=== PATIENT | female | born 1960 | race Caucasian/White ===

== ENCOUNTER → 2016-12-20 | Outpatient (CLI) | payer BC ==
[~2016-12-20] MED LIST: ALBU2.5V4 IH; ALBU8.5H2 IH; BUDE10.22 IH; FLUT9.9S NSEACH; HYDR473S50 PO; IBUP-2055 PO; ONDA-43 PO; ONDA4SOL2 PO; OXYC-197 PO; [UNRECOGNIZED DRUG - REMARK]
--- NOTE | 2016-12-20 19:22 | Diagnostic Imaging Report ---
EXAMINATION: Bilateral diagnostic mammogram. INDICATION: Right breast lump and right breast pulling. COMPARISON: This study was compared to the prior exam of 04/06/2012. At this time, the patient does complain of a "pulling" sensation in the lateral aspect of the right breast. Reportedly, she also has a small mass in this area. The current study was also evaluated with a Computer Aided Detection (CAD) system. FINDINGS: In the 10 o'clock position of the right breast, there is a small 9 mm benign-appearing nodular density. There was a similar finding on the prior exam, and this nodular density does not seem to have change significantly since the prior study. Even so, I would recommend that ultrasound of this area be performed for further study. The overall appearance of the breasts is otherwise no different. There are scattered fibroglandular densities in each breast, which could obscure a lesion. There is no primary or secondary sign of malignancy identified. IMPRESSION: 1. There is a small benign-appearing nodular density in the upper-outer aspect of the right breast. Ultrasound would be recommended for further evaluation of this area. 2. There is no primary or secondary sign of malignancy involving either breast otherwise. ACR BI-RADS Category 0: Incomplete. (Needs additional imaging evaluation). Result letter will be mailed to the patient. Note: At least 10% of breast cancer is not imaged by mammography. Dictated by: Dictated on workstation # [id number]
--- NOTE | 2016-12-20 19:39 | Diagnostic Imaging Report ---
Ultrasound right breast. INDICATION: Right breast pain and lump. FINDINGS: By history, the patient has pain and a palpable abnormality in the lateral aspect of the right breast. The diagnostic mammogram performed prior to this study failed to show any sign of malignancy. The diagnostic mammogram did note a small nodular density in the 10 o'clock position of the right breast. This did seem stable when compared to the prior mammogram of 04/06/2012. On this study, there is a lobulated 0.9 x 0.5 x 0.7 cm hypoechoic mass in the 10 o'clock position of the breast roughly 6 cm from the nipple. This is in the same region as the nodular density seen on the mammogram. There is no internal vascularity associated with this finding to suggest a malignant process but does not have an entirely benign appearance. While this hypoechoic lesion and the nodular density seen on mammogram may be one and the same, the possibility that this is related to a malignant process should still be considered. I would recommend that an ultrasound-guided biopsy be performed for further study. IMPRESSION: 1. There is a small lobulated hypoechoic mass in the 10 o'clock position of the right breast. An ultrasound-guided biopsy would be recommended to exclude malignancy. 2. These results were called to Aric Magana APRN. CRITICAL FINDINGS Dictated by: Dictated on workstation # [id number]
== END ==
LOC: RAD 07:35
DX: N63 Unspecified lump in breast (principal); N64.4 Mastodynia
CPT/HCPCS: 77066

== ENCOUNTER → 2016-12-28 | Outpatient (CLI) | payer BC ==
[~2016-12-28] VITALS: Ht 149.9 cm; Wt 56.7 kg
[~2016-12-28] MED LIST changes: +LIDOCAINE 1% INJ 20 ML (XYLOCAINE) VIAL INJ ONE
[2016-12-28 08:50] VITALS: BP 138/87
[2016-12-28 09:34] VITALS: BP 129/84
--- NOTE | 2016-12-28 15:06 | Diagnostic Imaging Report ---
EXAMINATION: Vacuum-assisted ultrasound-guided biopsy of breast mass right. A metallic clip placed to stephane biopsy site. INDICATION: Right breast mass. CONSENT: Informed consent was obtained from the patient. The risks, benefits, potential complications and alternatives were reviewed and all questions answered to the patient's satisfaction. FINDINGS: Ultrasound images demonstrate right breast mass at the 10:00 zone 6 CM from the nipple. PROCEDURE: After sterile preparation and draping, 1% lidocaine was utilized for local anesthesia. A vacuum-assisted biopsy device with 14-gauge needle was introduced under live ultrasound guidance into the lesion. Good needle position was documented with ultrasound images. A metallic clip was placed to stephane the site of the biopsy. A subsequent mammogram is performed and confirms the proper positioning of the clip. Multiple samples were obtained and sent to pathology. The patient tolerated the procedure well with no immediate complications. IMPRESSION: Successful ultrasound-guided biopsy of 10:00 right breast mass. A metallic clip placed to stephane biopsy site. Dictated by: Dictated on workstation # [id number]
--- NOTE | 2016-12-28 15:45 | Diagnostic Imaging Report ---
EXAMINATION: Right breast digital diagnostic mammogram with CAD with CC and lateral views. The current study was also evaluated with a Computer Aided Detection (CAD) system. INDICATION: Post ultrasound-guided biopsy with clip placement. FINDINGS: Satisfactory clip position at site of right upper outer breast nodule in good position with resolution of the previously seen nodule suggestive of matching mammographic and ultrasound abnormalities. IMPRESSION: Satisfactory post biopsy changes and clip placement after ultrasound-guided biopsy of 10:00 lesion, 10 cm from the nipple. Biopsy results are pending. BI-RADS 4A Dictated by: Dictated on workstation # [id number]
== END ==
LOC: RAD 08:29
DX: D24.1 Benign neoplasm of right breast (principal)
CPT/HCPCS: 19083; 88305

== ENCOUNTER → 2017-06-16 | Outpatient (CLI) | payer BC, OTHER ==
[~2017-06-16] MED LIST changes: -LIDOCAINE 1% INJ 20 ML (XYLOCAINE) VIAL INJ ONE
--- NOTE | 2017-06-16 13:25 | Diagnostic Imaging Report ---
PROCEDURE: MRI lumbar spine. TECHNIQUE: Multiplanar, multisequence MRI of the lumbar spine was performed without contrast. INDICATION: Low back pain. FINDINGS: The lumbar spine has a normal alignment. There is a transitional lumbosacral junction with sacralization of the lateral masses of L5. The vertebral body heights are preserved. No significant marrow signal abnormality is seen. There is mild disc desiccation in the upper and lower lumbar spine levels. No significant disc height loss is seen. The cauda equina and conus medullaris appear grossly unremarkable. T12/L1: There is minimal disc bulge. No spinal canal or foraminal stenosis. L1/2: No disc herniation. There is mild facet hypertrophy. No central canal or lateral recess stenosis. No foraminal narrowing. L2/3: No disc herniation. There is mild facet hypertrophy without central canal or lateral recess stenosis. No foraminal stenosis. L3/4: No disc herniation. There is mild facet hypertrophy. No central canal or lateral recess stenosis. No foraminal narrowing. L4/5: There is a mild diffuse disc bulge. There is bilateral moderate facet hypertrophy. There is bilateral moderate lateral recess stenosis abutting the descending L5 nerve roots. The foramina demonstrate no significant stenosis. L5/S1: There is a small disc at this level with no significant disc herniation, no spinal canal or foraminal stenosis. IMPRESSION: 1. Please note that there is a transitional lumbosacral junction with the transitional vertebra counted as sacralized L5 in this report. 2. There is moderate lateral recess stenosis bilaterally at L4/5 level abutting the descending L5 nerve roots. Otherwise, no significant spinal canal or foraminal stenosis is seen in the lumbar spine. Dictated on workstation # [id number]
== END ==
LOC: RAD 07:40
DX: M54.16 Radiculopathy, lumbar region (principal)
CPT/HCPCS: 72148

== ENCOUNTER 2018-07-17 07:35 | Emergency (ER) | payer BC ==
[~2018-07-17] VITALS: Ht 149.9 cm; Wt 54.4 kg
[~2018-07-17 07:35] MED LIST changes: -OXYC-197 PO; +OXYC1TAB87 PO
--- OUTSIDE RECORDS SUMMARY | 2018-07-17 07:40 | XMS REPORT | Continuity of Care Document ---
Author Author [facility] Organization [facility] Address Unknown Phone Unavailable Allergies Active Description Code Type Severity Reaction Onset Reported/Identified Relationship to Patient Clinical Status Yes seasonal seasonal Unknown N/A 11/28/2014 Yes No Known Drug Allergies [id number] Drug Allergy Unknown N/A 06/13/2016 Medications There is no data. Problems Date Dx Coded Attending Type Code Diagnosis Diagnosed By 11/28/2014 Ot 558.9 NONINF GASTROENTERIT NEC 11/28/2014 Ot 787.03 VOMITING ALONE 12/08/2015 JACQUELIN RIVERA DO Ot K21.9 GASTRO-ESOPHAGEAL REFLUX DISEASE WITHOUT 12/08/2015 JACQUELIN RIVERA DO Ot K44.9 DIAPHRAGMATIC HERNIA WITHOUT OBSTRUCTION 12/08/2015 JACQUELIN RIVERA DO Ot K57.90 DVRTCLOS OF INTEST, PART UNSP, W/O PERF 12/08/2015 JACQUELIN RIVERA DO Ot R07.89 OTHER CHEST PAIN 12/09/2015 JACQUELIN RIVERA DO Ot K21.9 12/09/2015 JACQUELIN RIVERA DO Ot K44.9 12/09/2015 JACQUELIN RIVERA DO Ot K57.90 12/09/2015 JACQUELIN RIVERA DO Ot R07.89 12/18/2015 Ot R10.13 EPIGASTRIC PAIN 12/18/2015 Ot Z01.818 ENCOUNTER FOR OTHER PREPROCEDURAL EXAMIN 12/21/2015 Ot R10.13 12/21/2015 Ot Z01.818 12/21/2015 DI RILEY, CICI Bowser Ot K29.70 GASTRITIS, UNSPECIFIED, WITHOUT BLEEDING 12/21/2015 DI RILEY, CICI Bowser Ot K44.9 DIAPHRAGMATIC HERNIA WITHOUT OBSTRUCTION 12/22/2015 DI RILEY, CICI Bowser Ot K29.70 12/22/2015 DI RILEY, CICI Bowser Ot K44.9 12/23/2015 DI RILEY, CICI Bowser Ot K29.70 12/23/2015 DI RILEY, CICI Bowser Ot K44.9 01/05/2016 DI RILEY, CICI Bowser Ot K29.70 GASTRITIS, UNSPECIFIED, WITHOUT BLEEDING 01/05/2016 DI RILEY, CICI Bowser Ot K44.9 DIAPHRAGMATIC HERNIA WITHOUT OBSTRUCTION 01/06/2016 DI RILEY, CICI Bowser Ot K29.70 GASTRITIS, UNSPECIFIED, WITHOUT BLEEDING 01/06/2016 DI RILEY, CICI Bowser Ot K44.9 DIAPHRAGMATIC HERNIA WITHOUT OBSTRUCTION 01/07/2016 CICI SEVILLA MD Ot K44.9 DIAPHRAGMATIC HERNIA WITHOUT OBSTRUCTION 01/07/2016 CICI SEVILLA MD Ot Z01.818 ENCOUNTER FOR OTHER PREPROCEDURAL EXAMIN 01/07/2016 CICI SEVILLA MD Ot Z11.2 ENCOUNTER FOR SCREENING FOR OTHER BACTER 01/08/2016 CICI SEVILLA MD Ot K44.9 DIAPHRAGMATIC HERNIA WITHOUT OBSTRUCTION 01/08/2016 CICI SEVILLA MD Ot Z01.818 ENCOUNTER FOR OTHER PREPROCEDURAL EXAMIN 01/08/2016 CICI SEVILLA MD Ot Z11.2 ENCOUNTER FOR SCREENING FOR OTHER BACTER 01/19/2016 CICI SEVILLA MD Ot K44.0 DIAPHRAGMATIC HERNIA WITH OBSTRUCTION, W 01/19/2016 DI RILEY, CICI Bowser Ot R13.10 DYSPHAGIA, UNSPECIFIED 06/13/2016 CICI SEVILLA MD Ot K43.9 VENTRAL HERNIA WITHOUT OBSTRUCTION OR GA 06/13/2016 CICI SEVILLA MD Ot Z01.818 ENCOUNTER FOR OTHER PREPROCEDURAL EXAMIN 06/14/2016 CICI SEVILLA MD Ot K43.9 VENTRAL HERNIA WITHOUT OBSTRUCTION OR GA 06/14/2016 CICI SEVILLA MD Ot Z01.818 ENCOUNTER FOR OTHER PREPROCEDURAL EXAMIN 06/15/2016 MERARY SERRA APRN Ot K42.9 UMBILICAL HERNIA WITHOUT OBSTRUCTION OR 06/17/2016 CICI SEVILLA MD Ot K43.9 VENTRAL HERNIA WITHOUT OBSTRUCTION OR GA 06/19/2016 CICI SEVILLA MD Ot K43.9 VENTRAL HERNIA WITHOUT OBSTRUCTION OR GA 06/19/2016 CICI SEVILLA MD Ot Z01.818 ENCOUNTER FOR OTHER PREPROCEDURAL EXAMIN 06/20/2016 CICI SEVILLA MD Ot K43.9 VENTRAL HERNIA WITHOUT OBSTRUCTION OR GA 06/21/2016 MERARY SERRA COMPLIANCE INVESTIGATOR Ot K42.9 UMBILICAL HERNIA WITHOUT OBSTRUCTION OR 06/23/2016 DI RILEY, CICI M Ot K43.9 VENTRAL HERNIA WITHOUT OBSTRUCTION OR GA 08/24/2016 MERARY SERRA COMPLIANCE INVESTIGATOR Ot K42.9 UMBILICAL HERNIA WITHOUT OBSTRUCTION OR 08/26/2016 MERARY SERRA COMPLIANCE INVESTIGATOR Ot K42.9 UMBILICAL HERNIA WITHOUT OBSTRUCTION OR 08/31/2016 PEREZ, NICO L COMPLIANCE INVESTIGATOR Ot J44.9 CHRONIC OBSTRUCTIVE PULMONARY DISEASE, U 08/31/2016 PEREZ, NICO L COMPLIANCE INVESTIGATOR Ot J45.909 UNSPECIFIED ASTHMA, UNCOMPLICATED 08/31/2016 PEREZ, NICO L COMPLIANCE INVESTIGATOR Ot 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 09/14/2016 PEREZ, NICO L COMPLIANCE INVESTIGATOR Ot J44.9 CHRONIC OBSTRUCTIVE PULMONARY DISEASE, U 09/14/2016 PEREZ, NICO L COMPLIANCE INVESTIGATOR Ot J45.909 UNSPECIFIED ASTHMA, UNCOMPLICATED 09/14/2016 PEREZ, NICO L COMPLIANCE INVESTIGATOR Ot 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 11/14/2016 MERARY SERRA COMPLIANCE INVESTIGATOR Ot K42.9 UMBILICAL HERNIA WITHOUT OBSTRUCTION OR 11/14/2016 PEREZ, NICO L COMPLIANCE INVESTIGATOR Ot J44.9 CHRONIC OBSTRUCTIVE PULMONARY DISEASE, U 11/14/2016 PEREZ, NICO L COMPLIANCE INVESTIGATOR Ot J45.909 UNSPECIFIED ASTHMA, UNCOMPLICATED 11/14/2016 PEREZ, NICO L COMPLIANCE INVESTIGATOR Ot 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 11/14/2016 MERARY SERRA COMPLIANCE INVESTIGATOR Ot K42.9 UMBILICAL HERNIA WITHOUT OBSTRUCTION OR 12/21/2016 PEREZ, NICO L COMPLIANCE INVESTIGATOR Ot N63 UNSPECIFIED LUMP IN BREAST 12/21/2016 PEREZ, NICO L COMPLIANCE INVESTIGATOR Ot N64.4 MASTODYNIA 12/21/2016 PEREZ, NICO L COMPLIANCE INVESTIGATOR Ot N63 UNSPECIFIED LUMP IN BREAST 12/21/2016 PEREZ, NICO L COMPLIANCE INVESTIGATOR Ot N64.4 MASTODYNIA 12/30/2016 PEREZ, NICO L COMPLIANCE INVESTIGATOR Ot D24.1 BENIGN NEOPLASM OF RIGHT BREAST 01/03/2017 MERARY SERRA COMPLIANCE INVESTIGATOR Ot K42.9 UMBILICAL HERNIA WITHOUT OBSTRUCTION OR 01/03/2017 PEREZ, NICO L COMPLIANCE INVESTIGATOR Ot J44.9 CHRONIC OBSTRUCTIVE PULMONARY DISEASE, U 01/03/2017 NICO PEREZ COMPLIANCE INVESTIGATOR Ot J45.909 UNSPECIFIED ASTHMA, UNCOMPLICATED 01/03/2017 NICO PEREZ COMPLIANCE INVESTIGATOR Ot Z79.899 OTHER [facility] (CURRENT) DRUG THERAPY 01/03/2017 NICO PEREZ COMPLIANCE INVESTIGATOR Ot N63 UNSPECIFIED LUMP IN BREAST 01/03/2017 NICO PEREZ Lily COMPLIANCE INVESTIGATOR Ot N64.4 MASTODYNIA 01/03/2017 NICO PEREZ COMPLIANCE INVESTIGATOR Ot D24.1 BENIGN NEOPLASM OF RIGHT BREAST 01/03/2017 MERARY SERRA COMPLIANCE INVESTIGATOR Ot K42.9 UMBILICAL HERNIA WITHOUT OBSTRUCTION OR 01/04/2017 NICO PEREZ Lily COMPLIANCE INVESTIGATOR Ot D24.1 BENIGN NEOPLASM OF RIGHT BREAST 01/05/2017 NICO PEREZ COMPLIANCE INVESTIGATOR Ot D24.1 BENIGN NEOPLASM OF RIGHT BREAST 01/06/2017 NICO PEREZ COMPLIANCE INVESTIGATOR Ot N63 UNSPECIFIED LUMP IN BREAST 01/06/2017 NICO PEREZ COMPLIANCE INVESTIGATOR Ot N64.4 MASTODYNIA 01/13/2017 NICO PEREZ COMPLIANCE INVESTIGATOR Ot D24.1 BENIGN NEOPLASM OF RIGHT BREAST 02/02/2017 NICO PEREZ COMPLIANCE INVESTIGATOR Ot D24.1 BENIGN NEOPLASM OF RIGHT BREAST 03/22/2017 NICO PEREZ COMPLIANCE INVESTIGATOR Ot D24.1 BENIGN NEOPLASM OF RIGHT BREAST 06/28/2017 NICO PERZE COMPLIANCE INVESTIGATOR Ot M54.16 RADICULOPATHY, LUMBAR REGION Procedures Code Description Performed By Performed On [id number] SUPPLEMENT R DIAPHRAGM WITH NONAUT SUB, 01/13/2016 [id number] SUPPLEMENT L DIAPHRAGM WITH NONAUT SUB, 01/13/2016 [id number] REPOSITION STOMACH, PERCUTANEOUS ENDOSCO 01/13/2016 [id number] REPOSITION TRANSVERSE COLON, PERC ENDO A 01/13/2016 [id number] 01/13/2016 [id number] RESTRICTION OF ESOPHAGOGASTRIC JUNCTION, 01/13/2016 [id number] REPOSITION PANCREAS, PERCUTANEOUS ENDOSC 01/13/2016 [id number] ROBOTIC ASSISTED PROCEDURE OF TRUNK, PER 01/13/2016 Results Test Result Range Methicillin resistant Staphylococcus aureus (MRSA) screening culture - 07:45 MRSA SCREEN RESULT MRSA ISOLATED NRG Complete blood count (CBC) with automated white blood cell (WBC) differential - 08/30/16 07:36 Blood leukocytes automated count (number/volume) 5.5 10*3/uL 4.3-11.0 Blood erythrocytes automated count (number/volume) 4.92 10*6/uL 4.35-5.85 Venous blood hemoglobin measurement (mass/volume) 14.7 g/dL 11.5-16.0 Blood hematocrit (volume fraction) 44 % 35-52 Automated erythrocyte mean corpuscular volume 90 [foz_us] 80-99 Automated erythrocyte mean corpuscular hemoglobin (mass per erythrocyte) 30 pg 25-34 Automated erythrocyte mean corpuscular hemoglobin concentration measurement ( mass/volume) 33 g/dL 32-36 Automated erythrocyte distribution width ratio 12.5 % 10.0-14.5 Automated blood platelet count (count/volume) 296 10*3/uL 130-400 Automated blood platelet mean volume measurement 8.6 [foz_us] 7.4-10.4 Automated blood neutrophils/100 leukocytes 59 % 42-75 Automated blood lymphocytes/100 leukocytes 32 % 12-44 Blood monocytes/100 leukocytes 6 % 0-12 Automated blood eosinophils/100 leukocytes 3 % 0-10 Automated blood basophils/100 leukocytes 1 % 0-10 Blood neutrophils automated count (number/volume) 3.3 10*3 1.8-7.8 Blood lymphocytes automated count (number/volume) 1.7 10*3 1.0-4.0 Blood monocytes automated count (number/volume) 0.3 10*3 0.0-1.0 Automated eosinophil count 0.2 10*3/uL 0.0-0.3 Automated blood basophil count (count/volume) 0.0 10*3/uL 0.0-0.1 Comprehensive metabolic panel - 08/30/16 07:36 Serum or plasma sodium measurement (moles/volume) 139 mmol/L 135-145 Serum or plasma potassium measurement (moles/volume) 4.5 mmol/L 3.6-5.0 Serum or plasma chloride measurement (moles/volume) 107 mmol/L 98-107 Carbon dioxide 24 mmol/L 21-32 Serum or plasma anion gap determination (moles/volume) 8 mmol/L 5-14 Serum or plasma urea nitrogen measurement (mass/volume) 15 mg/dL 7-18 Serum or plasma creatinine measurement (mass/volume) 0.74 mg/dL 0.60-1.30 Serum or plasma urea nitrogen/creatinine mass ratio 20 NRG Serum or plasma creatinine measurement with calculation of estimated glomerular filtration rate > NRG Serum or plasma glucose measurement (mass/volume) 103 mg/dL 70-105 Serum or plasma calcium measurement (mass/volume) 9.6 mg/dL 8.5-10.1 Serum or plasma total bilirubin measurement (mass/volume) 0.3 mg/dL 0.1-1.0 Serum or plasma alkaline phosphatase measurement (enzymatic activity/volume) 75 U/L 40-136 Serum or plasma aspartate aminotransferase measurement (enzymatic activity/ volume) 16 U/L 5-34 Serum or plasma alanine aminotransferase measurement (enzymatic activity/volume ) 21 U/L 0-55 Serum or plasma protein measurement (mass/volume) 7.0 g/dL 6.4-8.2 Serum or plasma albumin measurement (mass/volume) 4.2 g/dL 3.2-4.5 Lipid 1996 panel - 08/30/16 07:36 Serum or plasma triglyceride measurement (mass/volume) 73 mg/dL <150 Serum or plasma cholesterol measurement (mass/volume) 177 mg/dL < 200 Serum or plasma cholesterol in HDL measurement (mass/volume) 57 mg/ dL 40-60 Cholesterol in LDL [mass/volume] in serum or plasma by direct assay 105 mg/dL 1-129 Serum or plasma cholesterol in VLDL measurement (mass/volume) 15 mg/ dL 5-40 Encounters ACCT No. Visit Date/Time Discharge Status Pt. Type Provider Facility Loc./Unit Complaint [id number] 06/16/2017 07:40:00 06/16/2017 23:59:59 CLS Outpatient NICO PEREZ APRN [facility] RAD LUMBAR RADICULOPATHY [id number] 12/28/2016 08:29:00 12/28/2016 23:59:59 CLS Outpatient NICO PEREZ APRN [facility] RAD RT BREAST MASS [id number] 12/20/2016 07:35:00 12/20/2016 23:59:59 CLS Outpatient NICO PEREZ APRN [facility] RAD RT BREAST PAIN,TUGGING X1 MONTH [id number] 08/30/2016 07:23:00 08/30/2016 23:59:59 CLS Outpatient NICO PEREZ COMPLIANCE INVESTIGATOR [facility] 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 MEDICATIONS USE ,ASTHMA/COPD [id number] 06/15/2016 07:22:00 06/17/2016 13:00:00 DIS Outpatient DI RILEY, CICI Bowser [facility] VENTRAL HERNIA [id number] 06/13/2016 05:51:00 06/13/2016 14:36:00 DIS Outpatient DI RILEY, CICI Bowser [facility] PREOP VENTRAL HERNIA [id number] 06/07/2016 14:29:00 06/07/2016 23:59:59 CLS Outpatient MERARY SERRA COMPLIANCE INVESTIGATOR [facility] RAD UMBILICAL HERNIA, SEVERE PAIN W/ UMBILICAL BULGE [id number] 01/13/2016 08:57:00 01/19/2016 12:30:00 DIS Inpatient CICI SEVILLA MD [facility] 4TH HIATAL HERNIA [id number] 01/07/2016 08:48:00 01/07/2016 09:23:00 DIS Outpatient DI RILEY, CICI Bowser [facility] PREOP HIATAL HERNIA [id number] 12/21/2015 11:52:00 12/21/2015 15:20:00 DIS Outpatient CICI SEVILLA MD [facility] UPPER GASTRIC PAIN [id number] 12/08/2015 09:39:00 12/08/2015 13:02:00 DIS Emergency JACQUELIN RIVERA DO [facility] ER CP, CHEST TIGHTNESS [id number] 12/18/2015 07:34:00 Document Registration [id number] 12/08/2015 13:09:00 Document Registration [id number] 12/08/2015 13:09:00 Document Registration [id number] 11/28/2014 08:18:00 Document Registration
[2018-07-17] MEDS ORDERED: ONDANSETRON 4 MG/2 ML (SDV) Z0FRAN IVP ONE (08:00)
[2018-07-17] MEDS ORDERED: CELE100C84 (08:05)
[2018-07-17] MEDS ORDERED: BUDE10.2 (08:05)
[2018-07-17] MEDS ORDERED: GABA-486 (08:05)
[2018-07-17 08:12] LABS: BASOPHILS % (AUTO) 0 % (0-10); EOSINOPHILS # (AUTO) 0.2 10^3/uL (0.0-0.3); EOSINOPHILS % (AUTO) 4 % (0-10); HEMATOCRIT 41 % (35-52); HEMOGLOBIN 13.9 G/DL (11.5-16.0); LYMPHOCYTES # (AUTO) 1.9 X 10^3 (1.0-4.0); LYMPHOCYTES % (AUTO) 35 % (12-44); MEAN CORPUSCULAR HEMOGLOBIN 31 PG (25-34); MEAN CORPUSCULAR HGB CONC 34 G/DL (32-36); MEAN CORPUSCULAR VOLUME 91 FL (80-99); MONOCYTES # (AUTO) 0.3 X 10^3 (0.0-1.0); MONOCYTES % (AUTO) 6 % (0-12); NEUTROPHILS % (AUTO) 55 % (42-75); PLATELET COUNT 245 10^3/uL (130-400); RED CELL DISTRIBUTION WIDTH 12.6 % (10.0-14.5); WHITE BLOOD COUNT 5.3 10^3/uL (4.3-11.0)
[2018-07-17 08:29] LABS: ALANINE AMINOTRANSFERASE 15 U/L (0-55); ALBUMIN 4.1 GM/DL (3.2-4.5); ALKALINE PHOSPHATASE 50 U/L (40-136); AMYLASE 70 U/L (25-125); BILIRUBIN,TOTAL 0.6 MG/DL (0.1-1.0); BUN/CREATININE RATIO 26; CALCIUM 9.3 MG/DL (8.5-10.1); CARBON DIOXIDE 23 MMOL/L (21-32); CHLORIDE 109 MMOL/L (98-107); CREATININE SERUM 0.72 MG/DL (0.60-1.30); GFR ESTIMATED > 60; GLUCOSE 108 MG/DL (70-105); LIPASE 26 U/L (8-78); SODIUM 140 MMOL/L (135-145); TOTAL PROTEIN 6.8 GM/DL (6.4-8.2)
[2018-07-17] MEDS ORDERED: NS IV 1000 ML 1,000 ML IV STA (08:50)
[2018-07-17] MEDS ORDERED: ANTACID SUSP 30 ML UDC (MYLANTA) PO ONE (09:00)
[2018-07-17] MEDS ORDERED: IOHEXOL 350 MG/ML 100 ML (OMNIPAQUE 350) VIAL IV ONE (09:00)
[2018-07-17] MEDS ORDERED: LIDOCAINE 2% VISCOUS 15 ML UDC PO ONE (09:00)
[2018-07-17] MEDS ORDERED: NS 250 ML (IVPB) BAG IV ONE (09:00)
--- NOTE | 2018-07-17 09:13 | ED Abdominal Pain ---
General Chief Complaint: Abdominal/GI Problems Stated Complaint: ABD PAIN Nursing Triage Note: PT CO OF ABD PAIN EPIGASTRIC AREA, 10/10 PAIN, NAUSEA NO VOMITING, NO DIARRHEA Sepsis Screen: No Definite Risk Source of Information: Patient Exam Limitations: No Limitations History of Present Illness Date Seen by Provider: Jul 17, 2018 Time Seen by Provider: 08:45 Initial Comments Here with report of upper abdominal pain that has been going on for a couple days and markedly worse today. Is associated with nausea but no vomiting. Denies diarrhea. Last bowel movement was yesterday. Does have history of 2 previous hernia repairs in the area of pain. She's had a cholecystectomy as well as hysterectomy. Denies blood in her stool. Denies dysuria. Timing/Duration: 2-3 Days Severity/Quality: Moderate, Severe, Aching, Burning Location: Epigastric Radiation: No Radiation Activities at Onset: None Modifying Factors: Worsens With Eating Associated Symptoms: No Back Pain, No Chest Pain, No Fever/Chills, No Shortness of Air, No Weakness Allergies and Home Medications Allergies Coded Allergies: No Known Drug Allergies (Unverified , 06/13/16) Patient Home Medication List Home Medication List Reviewed: Yes Review of Systems Review of Systems Constitutional: see HPI; No chills, No fever EENTM: No Symptoms Reported Respiratory: No Symptoms Reported Cardiovascular: No Symptoms Reported Gastrointestinal: See HPI, Abdominal Pain; Denies Constipated, Denies Diarrhea ; Nausea; Denies Vomiting Genitourinary: No Symptoms Reported Musculoskeletal: no symptoms reported All Other Systems Reviewed Negative Unless Noted: Yes Past Nhrubus-Gpyxwa-Wijnys Hx Past Med/Social Hx: Reviewed Nursing Past Med/Soc Hx Patient Social History Alcohol Use: Denies Use Recreational Drug Use: No Smoking Status: Never a Smoker Recent Foreign Travel: No Contact w/Someone Who Travel: No Recent Infectious Disease Expo: No Recent Hopitalizations: No Physical Abuse: No Sexual Abuse: No Immunizations Up To Date Tetanus Booster (TDap): Unknown Date of Pneumonia Vaccine: Sep 18, 2009 Seasonal Allergies Seasonal Allergies: Yes Past Medical History Surgeries: Yes (HIATAL HERNIA REPAIR) Gallbladder, Hysterectomy Respiratory: Yes Asthma Currently Using CPAP: No Currently Using BIPAP: No Cardiac: No Neurological: No 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 Disorders: No (HYSTERECTOMY) Female 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 Disorders: Denies DRY CAN TENDER History: Hysterectomy Sexually Transmitted Disease: No HIV/AIDS: No Gastrointestinal: Yes (VENTRAL HERNIA) Hiatal Hernia Musculoskeletal: No Endocrine: No Loss of Vision: Bilateral Hearing Impairment: Denies Cancer: No Psychosocial: No Integumentary: No Blood Disorders: No Adverse Reaction/Blood Tranf: No (HAS HAD BLOOD WITHOUT DIFFICULTY) Family Medical History Reviewed Nursing Family Hx Patient reports no known family medical history. Physical Exam Vital Signs Vital Signs - First Documented 07/17/18 07:45 Temp 96.5 Pulse 83 Resp 29 B/P (MAP) 148/88 (108) Pulse Ox 98 Capillary Refill : Less Than 3 Seconds Height/Weight/BMI Height: 4'11.00" Weight: 120lbs. 0.0oz. 54.450898ku; 25.3 BMI Method:Stated General Appearance: WD/WN, no apparent distress HEENT: PERRL/EOMI, pharynx normal Neck: full range of motion, supple Respiratory: lungs clear, normal breath sounds Cardiovascular: regular rate, rhythm, no murmur Gastrointestinal: soft, abnormal bowel sounds (quiet); No guarding, No rebound ; tenderness (epigastric) Extremities: non-tender, normal inspection Back: normal inspection, no CVA tenderness, no vertebral tenderness Neurologic/Psychiatric: alert, oriented x 3 Skin: normal color, warm/dry Progress/Results/Core Measures Results/Orders Lab Results Laboratory Tests Test 07/17/18 07:50 07/17/18 09:10 Range/Units White Blood Count 5.3 4.3-11.0 10^3/uL Red Blood Count 4.50 4.35-5.85 10^6/uL Hemoglobin 13.9 11.5-16.0 G/DL Hematocrit 41 35-52 % Mean Corpuscular Volume 91 80-99 FL Mean Corpuscular Hemoglobin 31 25-34 PG Mean Corpuscular Hemoglobin Concent 34 32-36 G/DL Red Cell Distribution Width 12.6 10.0-14.5 % Platelet Count 245 130-400 10^3/uL Mean Platelet Volume 9.0 7.4-10.4 FL Neutrophils (%) (Auto) 55 42-75 % Lymphocytes (%) (Auto) 35 12-44 % Monocytes (%) (Auto) 6 0-12 % Eosinophils (%) (Auto) 4 0-10 % Basophils (%) (Auto) 0 0-10 % Neutrophils # (Auto) 3.0 1.8-7.8 X 10^3 Lymphocytes # (Auto) 1.9 1.0-4.0 X 10^3 Monocytes # (Auto) 0.3 0.0-1.0 X 10^3 Eosinophils # (Auto) 0.2 0.0-0.3 10^3/uL Basophils # (Auto) 0.0 0.0-0.1 10^3/uL Sodium Level 140 135-145 MMOL/L Potassium Level 4.0 3.6-5.0 MMOL/L Chloride Level 109 H 98-107 MMOL/L Carbon Dioxide Level 23 21-32 MMOL/L Anion Gap 8 5-14 MMOL/L Blood Urea Nitrogen 19 H 7-18 MG/DL Creatinine 0.72 0.60-1.30 MG/DL Estimat Glomerular Filtration Rate > 60 BUN/Creatinine Ratio 26 Glucose Level 108 H 70-105 MG/DL Calcium Level 9.3 8.5-10.1 MG/DL Corrected Calcium 9.2 8.5-10.1 MG/DL Total Bilirubin 0.6 0.1-1.0 MG/DL Aspartate Amino Transf (AST/SGOT) 17 5-34 U/L Alanine Aminotransferase (ALT/SGPT) 15 0-55 U/L Alkaline Phosphatase 50 40-136 U/L Total Protein 6.8 6.4-8.2 GM/DL Albumin 4.1 3.2-4.5 GM/DL Amylase Level 70 25-125 U/L Lipase 26 8-78 U/L Urine Color YELLOW Urine Clarity CLEAR Urine pH 8 5-9 Urine Specific [place] 1.015 L 1.016-1.022 Urine Protein NEGATIVE NEGATIVE Urine Glucose (UA) NEGATIVE NEGATIVE Urine Ketones NEGATIVE NEGATIVE Urine Nitrite NEGATIVE NEGATIVE Urine Bilirubin NEGATIVE NEGATIVE Urine Urobilinogen NORMAL NORMAL MG/DL Urine Leukocyte Esterase 2+ H NEGATIVE Urine RBC (Auto) NEGATIVE NEGATIVE Urine RBC NONE /HPF Urine WBC 10-25 H /HPF Urine Squamous Epithelial Cells 5-10 /HPF Urine Crystals NONE /LPF Urine Bacteria MODERATE H /HPF Urine Casts NONE /LPF Urine Mucus NEGATIVE /LPF Urine Culture Indicated YES My Orders Orders - CHEVY BANDA MD Amylase (07/17/18 07:58) Cbc With Automated Diff (07/17/18 07:58) Comprehensive Metabolic Panel (07/17/18 07:58) Lipase (07/17/18 07:58) Ua Culture If Indicated (07/17/18 07:58) Ondansetron Injection (Zofran Injectio (07/17/18 08:00) Saline Lock/Iv-Start (07/17/18 07:58) Ct Abdomen/Pelvis W (07/17/18 08:50) Lidocaine 2% Viscous 15 Ml (Xylocaine Vi (07/17/18 09:00) Ns Iv 1000 Ml (Sodium Chloride 0.9%) (07/17/18 08:50) Antacid Suspension (Mylanta Suspension (07/17/18 09:00) Iohexol Injection (Omnipaque 350 Mg/Ml 1 (07/17/18 09:00) Ns (Ivpb) (Sodium Chloride 0.9%) (07/17/18 09:00) Contrast Received (Contrast Received) (07/17/18 09:15) Urine Culture (07/17/18 09:10) Medications Given in ED Current Medications Medications Dose Ordered Sig/Toni Route Start Time Stop Time Status Last Admin Dose Admin Al Hydrox/Mg Hydrox/Simethicone 30 ml ONCE ONCE PO 07/17/18 09:00 07/17/18 09:01 DC 07/17/18 09:24 30 ML Iohexol 100 ml ONCE ONCE IV 07/17/18 09:00 07/17/18 09:11 DC 07/17/18 09:37 100 ML Lidocaine HCl 15 ml ONCE ONCE PO 07/17/18 09:00 07/17/18 09:01 DC 07/17/18 09:24 15 ML Ondansetron HCl 4 mg ONCE ONCE IVP 07/17/18 08:00 07/17/18 08:01 DC 07/17/18 08:07 4 MG Sodium Chloride 250 ml ONCE ONCE IV 07/17/18 09:00 07/17/18 09:11 DC 07/17/18 09:37 80 ML Vital Signs/I&O 07/17/18 07:45 Temp 96.5 Pulse 83 Resp 29 B/P (MAP) 148/88 (108) Pulse Ox 98 Blood Pressure Mean: 108 Progress Progress Note : Progress Note Seen and evaluated. IV, labs, Zofran 4 mg IV. Nausea somewhat improved. Reports not drinking well due to the pain. Normal saline 1 L bolus ordered. We will get CT abdomen pelvis due to concerns of obstructive symptoms and persistent pain. GI cocktail ordered. Monitor patient. 1040: Overall better. CT results noted in reviewed with the patient. We did discuss the patient needs colonoscopy and upper endoscopy. She will be initiated on PPI over-the- counter as well as Carafate. I did discuss the importance of following up with surgeon. I will send a copy of the chart to Dr. Devlin. She will call his office. There is some concerns for urinary tract infection as well as diverticulitis. We will initiate treatment with Cipro and Flagyl. Discharged home with return precautions. Patient verbalize understanding instructions and agreement with plan. Diagnostic Imaging Diagonstic Imaging: CT Plain Films/CT/US/NM/MRI: abdomen, pelvis Comments Date of Exam:07/17/18 CT ABDOMEN/PELVIS W PROCEDURE: CT abdomen and pelvis with contrast. TECHNIQUE: Multiple contiguous axial images were obtained through the abdomen and pelvis after administration of intravenous contrast. INDICATION: Abdominal pain x 3 days history, worsening in severity recently. COMPARISON: Nonenhanced study dated 06/07/2016. FINDINGS: Extensive posterior herniation comprised of the majority of the stomach, the majority of the pancreas, and extensive perigastric and retroperitoneal fat is a redemonstrated finding with resultant passive atelectasis of the adjacent posteromedial lung bases. The gallbladder is surgically absent. The liver is unremarkable. The adrenals are negative. The spleen is unremarkable. There is no hydronephrosis. The aortoiliac vessels are mildly calcified but nonaneurysmal. There is a small volume of pelvic free fluid. There are sigmoid diverticuli with some mild infiltration of the pelvic fat and mild diverticulitis could not be excluded. No abscess, obstruction, perforation, or free air. IMPRESSION: Small volume of free fluid and some perisigmoidal edema in the left lower quadrant with mild diverticulitis suspected. Large retrocardiac cardiac intra and retroperitoneal herniation, more pronounced than on the prior exam, but noted as a chronic finding. Unobstructed urinary tracts. No acute hepatobiliary abnormality. No abscess, perforation, or free air. Dictated on workstation # [id number] Dict: 07/17/18 [id number] Trans: 07/17/18 [id number] Interpreted by: VENTURA REYNOSO Electronically signed by: Departure Impression Primary Impression: Hiatal hernia with gastroesophageal reflux Additional Impressions: Diverticulitis of intestine Qualified Codes: K57.32 - Diverticulitis of large intestine without perforation or abscess without bleeding Urinary tract infection Qualified Codes: N30.00 - Acute cystitis without hematuria Disposition: HOME, SELF-CARE Condition: Improved Departure-Patient Inst. Decision time for Depature: 10:44 Referrals: DAVID KUMAR DO (PCP/Family) Primary Care Physician INGRIS DEVLIN DO Patient Instructions: Acute Abdomen (Belly Pain), Adult (DC), Peptic Ulcers (DC ), Urinary Tract Infection, Adult (DC) Add. Discharge Instructions: All discharge instructions reviewed with patient and/or family. Voiced understanding. Call Dr. Devlin's office for appointment. Light diet for the next 2 days and then advance as tolerated. You should start [id number] omeprazole 20 mg daily. Go ahead and complete a six-week pack. Return for worse pain, fever, vomiting, weakness, breathing problems or other concerns as needed. Drink plenty of fluids. Scripts Sucralfate (Sucralfate) 1 Gm Tablet 1 GM PO ACHS, #60 TAB 0 Refills Chew tablet to a slurry and then swallow Prov: CHEVY BANDA MD 07/17/18 Metronidazole (Metronidazole) 500 Mg Tablet 500 MG PO BID, #14 TAB 0 Refills Prov: CHEVY BANDA MD 07/17/18 Ciprofloxacin HCl (Ciprofloxacin HCl) 500 Mg Tablet 500 MG PO BID, #14 TAB Prov: CHEVY BANDA MD 07/17/18 Copy Copies To 1: INGRIS DEVLIN TIMOTHY D MD Jul 17, 2018 09:13
[2018-07-17] MEDS ORDERED: RECEIVED CONTRAST (Hold Metformin) IV SCH (09:15)
[2018-07-17 09:24] LABS: BILIRUBIN,URINE NEGATIVE (NEGATIVE); CLARITY,URINE CLEAR; COLOR,URINE YELLOW; GLUCOSE, URINE (UA) NEGATIVE (NEGATIVE); KETONES,URINE NEGATIVE (NEGATIVE); LEUKOCYTE ESTERASE ,URINE 2+ (NEGATIVE); NITRITE,URINE NEGATIVE (NEGATIVE); PH,URINE 8 (5-9); PROTEIN,URINE NEGATIVE (NEGATIVE); UROBILINOGEN,URINE NORMAL (NORMAL)
[2018-07-17 09:38] LABS: BACTERIA,URINE MODERATE /HPF
--- NOTE | 2018-07-17 10:07 | Diagnostic Imaging Report ---
PROCEDURE: CT abdomen and pelvis with contrast. TECHNIQUE: Multiple contiguous axial images were obtained through the abdomen and pelvis after administration of intravenous contrast. INDICATION: Abdominal pain x 3 days history, worsening in severity recently. COMPARISON: Nonenhanced study dated 06/07/2016. FINDINGS: Extensive posterior herniation comprised of the majority of the stomach, the majority of the pancreas, and extensive perigastric and retroperitoneal fat is a redemonstrated finding with resultant passive atelectasis of the adjacent posteromedial lung bases. The gallbladder is surgically absent. The liver is unremarkable. The adrenals are negative. The spleen is unremarkable. There is no hydronephrosis. The aortoiliac vessels are mildly calcified but nonaneurysmal. There is a small volume of pelvic free fluid. There are sigmoid diverticuli with some mild infiltration of the pelvic fat and mild diverticulitis could not be excluded. No abscess, obstruction, perforation, or free air. IMPRESSION: Small volume of free fluid and some perisigmoidal edema in the left lower quadrant with mild diverticulitis suspected. Large retrocardiac cardiac intra and retroperitoneal herniation, more pronounced than on the prior exam, but noted as a chronic finding. Unobstructed urinary tracts. No acute hepatobiliary abnormality. No abscess, perforation, or free air. Dictated by: Dictated on workstation # [id number]
[2018-07-17] MEDS ORDERED: SUCR1TAB PO (10:46)
[2018-07-17] MEDS ORDERED: METR-197 PO (10:46)
[2018-07-17] MEDS ORDERED: CIPR500T4 PO (10:46)
[2018-07-17 10:55] VITALS: BP 128/77
== END 2018-07-17 10:55 | disposition home or self-care (01) ==
LOC: EDUNIT# 07:35 → ER 07:36
DX: K46.9 Unspecified abdominal hernia without obstruction or gangrene (principal); K21.9 Gastro-esophageal reflux disease without esophagitis; K57.30 Diverticulosis of large intestine without perforation or abscess without bleeding; N39.0 Urinary tract infection, site not specified; J45.909 Unspecified asthma, uncomplicated; Z87.19 Personal history of other diseases of the digestive system; Z90.710 Acquired absence of both cervix and uterus; Z90.49 Acquired absence of other specified parts of digestive tract; Z98.890 Other specified postprocedural states
CPT/HCPCS: 36415; 74177; 80053; 81000; 82150; 83690; 85025; 87088; 96361; 96374

== ENCOUNTER 2018-07-31 06:38 | Outpatient (CLI) | payer BC ==
[~2018-07-31] VITALS: Ht 149.9 cm; Wt 54.4 kg
[~2018-07-31 06:38] MED LIST changes: +BUDE10.2 IH; +CELE100C84 PO; +CIPR500T4 PO; +GABA-486 PO; +METR-197 PO; +SUCR1TAB PO
[2018-07-31] MEDS ORDERED: GABA-488 PO (15:19)
== END 2018-07-31 15:21 | disposition home or self-care (01) ==
LOC: PREOP 06:38
PROVIDERS: ATTEND Surgery
DX: Z01.818 Encounter for other preprocedural examination (principal)

== ENCOUNTER 2018-08-06 09:02 | Day surgery (SDC) | payer BC ==
[~2018-08-06] VITALS: Ht 149.9 cm; Wt 54.4 kg
[~2018-08-06 09:02] MED LIST changes: +GABA-488 PO
[2018-08-06] MEDS ORDERED: NS IV 500 ML 500 ML IV PRN (09:10)
[2018-08-06] MEDS ORDERED: HURRICAINE EXT TUBE (BENZOCAINE) XX PRN (09:15)
[2018-08-06] MEDS ORDERED: fentaNYL INJECTION 100 MCG/2 ML AMP IVP ONE (09:15)
[2018-08-06] MEDS ORDERED: NS IV 500 ML 500 ML ONE (09:15)
[2018-08-06] MEDS ORDERED: MIDAZOLAM 2 MG/2 ML (VERSED) VIAL IVP ONE (09:15)
--- NOTE | 2018-08-06 09:23 | Conscious Sedation/ASA ---
Conscious Sedation Pre-Proced Time 09:23 ASA Score 2 For ASA 3 and 4: Consider anesthesia and medical clearance. Also, for patients with a history of failed moderate sedation consider anesthesia. Airway Lungs Heart ASA score ASA 1: a normal healthy patient ASA 2: a patient with a mild systemic disease (mid diabetes, controlled hypertension, obesity ASA 3: a patient with a severe systemic disease that limits activity (angina , COPD, prior Myocardial infarction) ASA 4: a patient with an incapacitating disease that is a constant threat to life (CHF, renal failure) ASA 5: a moribund patient not expected to survive 24 hrs. (ruptured aneurysm) ASA 6: a declared brain patient whose organs are being harvested. For emergent operations, add the letter E after the classification Mallampati Classification Grade 1 Sedation Plan Discussed options with patient/fam The patient is an appropriate candidate to undergo the planned procedure, sedation, and anesthesia. The patient immediately re-assessed prior to indication. CICI SEVILLA MD Aug 06, 2018 09:23
[2018-08-06 09:26] VITALS: BP 172/92
[2018-08-06] MEDS ORDERED: MIDAZOLAM 2 MG/2 ML (VERSED) VIAL ONE ×4 (09:44→09:45)
[2018-08-06] MEDS ORDERED: fentaNYL INJECTION 100 MCG/2 ML AMP ONE (09:44)
[2018-08-06] MEDS ORDERED: HURRICAINE EXT TUBE (BENZOCAINE) ONE (09:45)
--- NOTE | 2018-08-06 10:15 | Endo Procedure Record ---
Endo Procedure Report Date of Procedure Last Colonoscopy: No Aug 06, 2018 Surgeon (s) CICI SEVILLA MD Post Procedure/Op Diagnosis paraesophageal hernia Procedure Performed EGD with antral biopsy for H. pylori Description of Procedure Anesthesia Type: Conscious Sedation Specimen(s) collected/removed antral mucosa for H. pylori Description of the Procedure Indication for the procedure: This lady presented with epigastric pain of fairly recent onset. She had undergone repair of a large paraesophageal hernia with reinforcement of the hiatus using a mesh about 18 months ago. Evaluation confirmed recurrence of the hernia and therefore endoscopic assessment prior to planning further repair was felt to be reasonable. Informed consent was obtained after reviewing the procedure in detail. Description of the procedure: She was placed in left lateral decubitus position and her vital signs were monitored. Conscious sedation was achieved using Versed and fentanyl. The flexible gastroscope wasn't to the esophagus, past the stomach, into the duodenum. Findings: Esophagus: Quite tortuous. Stomach: Configuration of a paraesophageal hernia with the distal stomach being found high above the hiatus. An antral biopsy for H. pylori was obtained. Duodenum: Normal. She tolerated the procedure well and was taken back to the nursing area in a stable condition. Impression: Recurrent paraesophageal hernia. Further arrangements for surgical repair would be made. CICI SEVILLA MD Aug 06, 2018 10:15
--- NOTE | 2018-08-06 10:19 | Discharge Inst-Simple/Standard ---
Discharge Inst-Standard Discharge Medications New, Converted or Re-Newed RX: Other Patient Instructions/Follow Up Plan of Care/Instructions/FU: we would contact her regarding arrangements for surgery Activity as Tolerated: Yes Discharge Diet: No Restrictions CICI SEVILLA MD Aug 06, 2018 10:19
[2018-08-06 10:40] VITALS: BP 153/88
[2018-08-06 11:06] VITALS: BP 141/98
[2018-08-06 11:10] VITALS: BP 141/98
== END 2018-08-06 11:11 | disposition home or self-care (01) ==
LOC: ENDO 09:02
PROVIDERS: ATTEND Surgery
DX: K44.9 Diaphragmatic hernia without obstruction or gangrene (principal); K57.32 Diverticulitis of large intestine without perforation or abscess without bleeding

== ENCOUNTER 2018-09-03 20:05 | Emergency (ER) | payer BC ==
[~2018-09-03] VITALS: Ht 149.9 cm; Wt 54.4 kg
--- OUTSIDE RECORDS SUMMARY | 2018-09-03 20:12 | XMS REPORT | Continuity of Care Document ---
Author Author [facility] Organization [facility] Address Unknown Phone Unavailable Allergies Active Description Code Type Severity Reaction Onset Reported/Identified Relationship to Patient Clinical Status Yes seasonal seasonal Unknown N/A 11/28/2014 Yes No Known Drug Allergies [id number] Drug Allergy Unknown N/A 06/13/2016 Medications There [...] WITHOUT OBSTRUCTION OR GA 06/21/2016 MERARY SERRA PRODUCTION TOOL ENGINEER Ot K42.9 UMBILICAL HERNIA WITHOUT OBSTRUCTION OR 06/23/2016 DI RILEY, CICI M Ot K43.9 VENTRAL HERNIA WITHOUT OBSTRUCTION OR GA 08/24/2016 MERARY SERRA PRODUCTION TOOL ENGINEER Ot K42.9 UMBILICAL HERNIA WITHOUT OBSTRUCTION OR 08/26/2016 MERARY SERRA PRODUCTION TOOL ENGINEER Ot K42.9 UMBILICAL HERNIA WITHOUT OBSTRUCTION OR 08/31/2016 PEREZ, NICO L PRODUCTION TOOL ENGINEER Ot J44.9 CHRONIC OBSTRUCTIVE PULMONARY DISEASE, U 08/31/2016 PEREZ, NICO L PRODUCTION TOOL ENGINEER Ot J45.909 UNSPECIFIED ASTHMA, UNCOMPLICATED 08/31/2016 PEREZ, NICO L PRODUCTION TOOL ENGINEER Ot Z79.899 OTHER STOREROOM SUPERVISOR (CURRENT) DRUG THERAPY 09/14/2016 PEREZ, NICO L PRODUCTION TOOL ENGINEER Ot J44.9 CHRONIC OBSTRUCTIVE PULMONARY DISEASE, U 09/14/2016 PEREZ, NICO L PRODUCTION TOOL ENGINEER Ot J45.909 UNSPECIFIED ASTHMA, UNCOMPLICATED 09/14/2016 PEREZ, NICO L PRODUCTION TOOL ENGINEER Ot Z79.899 OTHER STOREROOM SUPERVISOR (CURRENT) DRUG THERAPY 11/14/2016 MERARY SERRA PRODUCTION TOOL ENGINEER Ot K42.9 UMBILICAL HERNIA WITHOUT OBSTRUCTION OR 11/14/2016 PEREZ, NICO L PRODUCTION TOOL ENGINEER Ot J44.9 CHRONIC OBSTRUCTIVE PULMONARY DISEASE, U 11/14/2016 PEREZ, NICO L PRODUCTION TOOL ENGINEER Ot J45.909 UNSPECIFIED ASTHMA, UNCOMPLICATED 11/14/2016 PEREZ, NICO L PRODUCTION TOOL ENGINEER Ot Z79.899 OTHER STOREROOM SUPERVISOR (CURRENT) DRUG THERAPY 11/14/2016 MERARY SERRA PRODUCTION TOOL ENGINEER Ot K42.9 UMBILICAL HERNIA WITHOUT OBSTRUCTION OR 12/21/2016 PEREZ, NICO L PRODUCTION TOOL ENGINEER Ot N63 UNSPECIFIED LUMP IN BREAST 12/21/2016 PEREZ, NICO L PRODUCTION TOOL ENGINEER Ot N64.4 MASTODYNIA 12/21/2016 PEREZ, NICO L PRODUCTION TOOL ENGINEER Ot N63 UNSPECIFIED LUMP IN BREAST 12/21/2016 PEREZ, NICO L PRODUCTION TOOL ENGINEER Ot N64.4 MASTODYNIA 12/30/2016 PEREZ, NICO L PRODUCTION TOOL ENGINEER Ot D24.1 BENIGN NEOPLASM OF RIGHT BREAST 01/03/2017 MERARY SERRA PRODUCTION TOOL ENGINEER Ot K42.9 UMBILICAL HERNIA WITHOUT OBSTRUCTION OR 01/03/2017 PEREZ, NICO L PRODUCTION TOOL ENGINEER Ot J44.9 CHRONIC OBSTRUCTIVE PULMONARY DISEASE, U 01/03/2017 NICO PEREZ PRODUCTION TOOL ENGINEER Ot J45.909 UNSPECIFIED ASTHMA, UNCOMPLICATED 01/03/2017 NICO PEREZ Lily PRODUCTION TOOL ENGINEER Ot Z79.899 OTHER DETENTION (CURRENT) DRUG THERAPY 01/03/2017 NICO PEREZ PRODUCTION TOOL ENGINEER Ot N63 UNSPECIFIED LUMP IN BREAST 01/03/2017 NICO PEREZ Lily PRODUCTION TOOL ENGINEER Ot N64.4 MASTODYNIA 01/03/2017 NICO PEREZ Lily PRODUCTION TOOL ENGINEER Ot D24.1 BENIGN NEOPLASM OF RIGHT BREAST 01/03/2017 MERARY SERRA PRODUCTION TOOL ENGINEER Ot K42.9 UMBILICAL HERNIA WITHOUT OBSTRUCTION OR 01/04/2017 NICO PEREZ Lily PRODUCTION TOOL ENGINEER Ot D24.1 BENIGN NEOPLASM OF RIGHT BREAST 01/05/2017 NICO PEREZ Lily PRODUCTION TOOL ENGINEER Ot D24.1 BENIGN NEOPLASM OF RIGHT BREAST 01/06/2017 NICO PEREZ Lily PRODUCTION TOOL ENGINEER Ot N63 UNSPECIFIED LUMP IN BREAST 01/06/2017 NICO PEREZ Lily PRODUCTION TOOL ENGINEER Ot N64.4 MASTODYNIA 01/13/2017 NICO PEREZ Lily PRODUCTION TOOL ENGINEER Ot D24.1 BENIGN NEOPLASM OF RIGHT BREAST 02/02/2017 NICO PEREZ Lily PRODUCTION TOOL ENGINEER Ot D24.1 BENIGN NEOPLASM OF RIGHT BREAST 03/22/2017 NICO PEREZ Lily PRODUCTION TOOL ENGINEER Ot D24.1 BENIGN NEOPLASM OF RIGHT BREAST 06/28/2017 NICO PEREZ Lily PRODUCTION TOOL ENGINEER Ot M54.16 RADICULOPATHY, LUMBAR REGION 07/17/2018 CHEVY BANDA MD Ot J45.909 UNSPECIFIED ASTHMA, UNCOMPLICATED 07/17/2018 CHEVY BANDA MD Ot K21.9 GASTRO-ESOPHAGEAL REFLUX DISEASE WITHOUT 07/17/2018 CHEVY BANDA MD Ot K46.9 UNSPECIFIED ABDOMINAL HERNIA WITHOUT OBS 07/17/2018 CHEVY BANDA MD, Ot K57.30 DVRTCLOS OF LG INT W/O PERFORATION OR AB 07/17/2018 CHEVY BANDA MD Ot N39.0 URINARY TRACT INFECTION, SITE NOT SPECIF 07/17/2018 CHEVY BANDA MD Ot R10.13 EPIGASTRIC PAIN 07/17/2018 CHEVY BANDA MD Ot Z87.19 PERSONAL HISTORY OF OTHER DISEASES OF 07/17/2018 CHEVY BANDA MD, Ot Z90.49 ACQUIRED ABSENCE OF OTHER SPECIFIED PART 07/17/2018 CHEVY BANDA MD, Ot Z90.710 ACQUIRED ABSENCE OF BOTH CERVIX AND UTER 07/17/2018 CHEVY BANDA MD, Ot Z98.890 OTHER SPECIFIED POSTPROCEDURAL STATES 07/19/2018 CHEVY BANDA MD, Ot J45.909 UNSPECIFIED ASTHMA, UNCOMPLICATED 07/19/2018 CHEVY BANDA MD, Ot K21.9 GASTRO-ESOPHAGEAL REFLUX DISEASE WITHOUT 07/19/2018 CHEVY BANDA MD, Ot K46.9 UNSPECIFIED ABDOMINAL HERNIA WITHOUT OBS 07/19/2018 CHEVY BANDA MD, Ot K57.30 DVRTCLOS OF LG INT W/O PERFORATION OR AB 07/19/2018 CHEVY BANDA MD, Ot N39.0 URINARY TRACT INFECTION, SITE NOT SPECIF 07/19/2018 CHEVY BANDA MD, Ot R10.13 EPIGASTRIC PAIN 07/19/2018 CHEVY BANDA MD, Ot Z87.19 PERSONAL HISTORY OF OTHER DISEASES OF 07/19/2018 CHEVY BANDA MD, Ot Z90.49 ACQUIRED ABSENCE OF OTHER SPECIFIED PART 07/19/2018 CHEVY BANDA MD, Ot Z90.710 ACQUIRED ABSENCE OF BOTH CERVIX AND UTER 07/19/2018 CHEVY BANDA MD, Ot Z98.890 OTHER SPECIFIED POSTPROCEDURAL STATES 08/02/2018 MERARY SERRA APRN Ot K42.9 UMBILICAL HERNIA WITHOUT OBSTRUCTION OR 08/02/2018 NICO PEREZ PRODUCTION TOOL ENGINEER Ot J44.9 CHRONIC OBSTRUCTIVE PULMONARY DISEASE, U 08/02/2018 NICO PEREZ PRODUCTION TOOL ENGINEER Ot J45.909 UNSPECIFIED ASTHMA, UNCOMPLICATED 08/02/2018 NICO PEREZ APRN Ot Z79.899 OTHER STOREROOM SUPERVISOR (CURRENT) DRUG THERAPY 08/02/2018 NICO PEREZ PRODUCTION TOOL ENGINEER Ot N63 UNSPECIFIED LUMP IN BREAST 08/02/2018 NICO PEREZ PRODUCTION TOOL ENGINEER Ot N64.4 MASTODYNIA 08/02/2018 NICO PEREZ PRODUCTION TOOL ENGINEER Ot D24.1 BENIGN NEOPLASM OF RIGHT BREAST 08/02/2018 NICO PEREZ PRODUCTION TOOL ENGINEER Ot M54.16 RADICULOPATHY, LUMBAR REGION 08/06/2018 DI RILEY, CICI Bowser Ot K44.9 DIAPHRAGMATIC HERNIA WITHOUT OBSTRUCTION 08/06/2018 DI RILEY, CICI Bowser Ot K57.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 08/07/2018 CICI SEVILLA MD, Ot K44.9 DIAPHRAGMATIC HERNIA WITHOUT OBSTRUCTION 08/07/2018 CICI SEVILLA MD, Ot K57.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 08/15/2018 DI RILEY, CICI Bowser Ot K44.9 DIAPHRAGMATIC HERNIA WITHOUT OBSTRUCTION 08/15/2018 DI RILEY, CICI Bowser Ot K57.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 Procedures Code Description Performed By Performed On [id number] SUPPLEMENT R DIAPHRAGM WITH NONAUT SUB, 01/13/2016 [id number] SUPPLEMENT L DIAPHRAGM WITH NONAUT SUB, 01/13/2016 [id number] REPOSITION STOMACH, PERCUTANEOUS ENDOSCO 01/13/2016 [id number] REPOSITION TRANSVERSE COLON, PERC ENDO A 01/13/2016 [id number] 01/13/2016 [id number] RESTRICTION OF ESOPHAGOGASTRIC JUNCTION, 01/13/2016 3ALV3II REPOSITION PANCREAS, PERCUTANEOUS ENDOSC 01/13/2016 [id number] ROBOTIC ASSISTED PROCEDURE OF TRUNK, PER 01/13/2016 [...] VLDL measurement (mass/volume) 15 mg/ dL 5-40 Complete blood count (CBC) with automated white blood cell (WBC) differential - 07/17/18 07:50 Blood leukocytes automated count (number/volume) 5.3 10*3/uL 4.3-11.0 Blood erythrocytes automated count (number/volume) 4.50 10*6/uL 4.35-5.85 Venous blood hemoglobin measurement (mass/volume) 13.9 g/dL 11.5-16.0 Blood hematocrit (volume fraction) 41 % 35-52 Automated erythrocyte mean corpuscular volume 91 [foz_us] 80-99 Automated erythrocyte mean corpuscular hemoglobin (mass per erythrocyte) 31 pg 25-34 Automated erythrocyte mean corpuscular hemoglobin concentration measurement ( mass/volume) 34 g/dL 32-36 Automated erythrocyte distribution width ratio 12.6 % 10.0-14.5 Automated blood platelet count (count/volume) 245 10*3/uL 130-400 Automated blood platelet mean volume measurement 9.0 [foz_us] 7.4-10.4 Automated blood neutrophils/100 leukocytes 55 % 42-75 Automated blood lymphocytes/100 leukocytes 35 % 12-44 Blood monocytes/100 leukocytes 6 % 0-12 Automated blood eosinophils/100 leukocytes 4 % 0-10 Automated blood basophils/100 leukocytes 0 % 0-10 Blood neutrophils automated count (number/volume) 3.0 10*3 1.8-7.8 Blood lymphocytes automated count (number/volume) 1.9 10*3 1.0-4.0 Blood monocytes automated count (number/volume) 0.3 10*3 0.0-1.0 Automated eosinophil count 0.2 10*3/uL 0.0-0.3 Automated blood basophil count (count/volume) 0.0 10*3/uL 0.0-0.1 Comprehensive metabolic panel - 07/17/18 07:50 Serum or plasma sodium measurement (moles/volume) 140 mmol/L 135-145 Serum or plasma potassium measurement (moles/volume) 4.0 mmol/L 3.6-5.0 Serum or plasma chloride measurement (moles/volume) 109 mmol/L 98-107 Carbon dioxide 23 mmol/L 21-32 Serum or plasma anion gap determination (moles/volume) 8 mmol/L 5-14 Serum or plasma urea nitrogen measurement (mass/volume) 19 mg/dL 7-18 Serum or plasma creatinine measurement (mass/volume) 0.72 mg/dL 0.60-1.30 Serum or plasma urea nitrogen/creatinine mass ratio 26 NRG Serum or plasma creatinine measurement with calculation of estimated glomerular filtration rate > NRG Serum or plasma glucose measurement (mass/volume) 108 mg/dL 70-105 Serum or plasma calcium measurement (mass/volume) 9.3 mg/dL 8.5-10.1 Serum or plasma total bilirubin measurement (mass/volume) 0.6 mg/dL 0.1-1.0 Serum or plasma alkaline phosphatase measurement (enzymatic activity/volume) 50 U/L 40-136 Serum or plasma aspartate aminotransferase measurement (enzymatic activity/ volume) 17 U/L 5-34 Serum or plasma alanine aminotransferase measurement (enzymatic activity/volume ) 15 U/L 0-55 Serum or plasma protein measurement (mass/volume) 6.8 g/dL 6.4-8.2 Serum or plasma albumin measurement (mass/volume) 4.1 g/dL 3.2-4.5 CALCIUM CORRECTED 9.2 mg/dL 8.5-10.1 Serum or plasma amylase measurement (enzymatic activity/volume) - 07/17/18 07: 50 Serum or plasma amylase measurement (enzymatic activity/volume) 70 U /L 25-125 Lipase - 07/17/18 07:50 Lipase 26 U/L 8-78 Complete urinalysis with reflex to culture - 07/17/18 09:10 Urine color determination YELLOW NRG Urine clarity determination CLEAR NRG Urine pH measurement by test strip 8 5-9 Specific gravity of urine by test strip 1.015 1.016- 1.022 Urine protein assay by test strip, semi-quantitative NEGATIVE NEGATIVE Urine glucose detection by automated test strip NEGATIVE NEGATIVE Erythrocytes detection in urine sediment by light microscopy NEGATIVE NEGATIVE Urine ketones detection by automated test strip NEGATIVE NEGATIVE Urine nitrite detection by test strip NEGATIVE NEGATIVE Urine total bilirubin detection by test strip NEGATIVE NEGATIVE Urine urobilinogen measurement by automated test strip (mass/volume) NORMAL NORMAL Urine leukocyte esterase detection by dipstick 2+ NEGATIVE Automated urine sediment erythrocyte count by microscopy (number/high power field) NONE NRG Automated urine sediment leukocyte count by microscopy (number/high power field ) [HPF] NRG Bacteria detection in urine sediment by light microscopy MODERATE NRG Squamous epithelial cells detection in urine sediment by light microscopy 5-10 NRG Crystals detection in urine sediment by light microscopy NONE NRG Casts detection in urine sediment by light microscopy NONE NRG Mucus detection in urine sediment by light microscopy NEGATIVE NRG Complete urinalysis with reflex to culture YES NRG Bacterial urine culture - 07/17/18 09:10 Bacterial urine culture NG NRG Encounters ACCT No. Visit Date/Time Discharge Status Pt. Type Provider Facility Loc./Unit Complaint [id number] 08/06/2018 09:02:00 08/06/2018 23:59:59 CLS Outpatient CICI SEVILLA MD [facility] ENDO EPIGASTIC PAIN/GERD [id number] 07/31/2018 06:38:00 07/31/2018 15:21:00 DIS Outpatient CICI SEVILLA MD [facility] PREOP EGD [id number] 07/17/2018 07:36:00 07/17/2018 10:55:00 DIS Emergency CHEVY BANDA MD [facility] ER ABD PAIN [id number] 06/16/2017 07:40:00 06/16/2017 23:59:59 CLS Outpatient NICO PEREZ PRODUCTION TOOL ENGINEER [facility] RAD LUMBAR RADICULOPATHY [id number] 12/28/2016 08:29:00 12/28/2016 23:59:59 CLS Outpatient NICO PEREZ PRODUCTION TOOL ENGINEER [facility] RAD RT BREAST MASS [id number] 12/20/2016 07:35:00 12/20/2016 23:59:59 CLS Outpatient NICO PEREZ PRODUCTION TOOL ENGINEER [facility] RAD RT BREAST PAIN,TUGGING X1 MONTH [id number] 08/30/2016 07:23:00 08/30/2016 23:59:59 CLS Outpatient PEREZ NICO Lily PRODUCTION TOOL ENGINEER [facility] LAB DETENTION MEDICATIONS USE ,ASTHMA/COPD [id number] 06/15/2016 07:22:00 06/17/2016 13:00:00 DIS [facility] [id number] 06/13/2016 05:51:00 06/13/2016 14:36:00 DIS Outpatient CICI SEVILLA MD [facility] PREOP VENTRAL HERNIA [id number] 06/07/2016 14:29:00 06/07/2016 23:59:59 CLS Outpatient MERARY SERRA PRODUCTION TOOL ENGINEER [facility] RAD UMBILICAL HERNIA, SEVERE PAIN W/ UMBILICAL BULGE [id number] 01/13/2016 08:57:00 01/19/2016 12:30:00 DIS Inpatient CICI SEVILLA MD [facility] 4TH HIATAL HERNIA [id number] 01/07/2016 08:48:00 01/07/2016 09:23:00 DIS Outpatient CICI SEVILLA MD [facility] PREOP HIATAL HERNIA [id number] 12/21/2015 11:52:00 12/21/2015 15:20:00 DIS Outpatient CICI SEVILLA MD [facility] SDC UPPER GASTRIC PAIN [id number] 12/08/2015 09:39:00 12/08/2015 13:02:00 DIS Emergency JACQUELIN RIVERA DO [facility] ER CP, CHEST TIGHTNESS [id number] 12/18/2015 07:34:00 Document Registration [id number] 12/08/2015 13:09:00 Document Registration [id number] 12/08/2015 13:09:00 Document Registration [id number] 11/28/2014 08:18:00 Document Registration
[2018-09-03] MEDS ORDERED: ONDANSETRON 4 MG (ZOFRAN) ORAL DISSOLVE TAB SL STA (20:28)
[2018-09-03] MEDS ORDERED: LIDOCAINE 2% VISCOUS 15 ML UDC PO ONE (20:30)
[2018-09-03] MEDS ORDERED: ANTACID SUSP 30 ML UDC (MYLANTA) PO ONE (20:30)
[2018-09-03] MEDS ORDERED: FAMOTIDINE 20MG/2ML IV (PEPCID) IVP ONE (21:15)
[2018-09-03] MEDS ORDERED: fentaNYL INJECTION 100 MCG/2 ML AMP IVP ONE ×2 (21:15→22:15)
[2018-09-03 21:46] LABS: BASOPHILS % (AUTO) 0 % (0-10); EOSINOPHILS % (AUTO) 0 % (0-10); HEMATOCRIT 42 % (35-52); LYMPHOCYTES # (AUTO) 0.8 X 10^3 (1.0-4.0); LYMPHOCYTES % (AUTO) 9 % (12-44); MEAN CORPUSCULAR HEMOGLOBIN 30 PG (25-34); MEAN CORPUSCULAR HGB CONC 34 G/DL (32-36); MEAN CORPUSCULAR VOLUME 90 FL (80-99); MEAN PLATELET VOLUME 8.9 FL (7.4-10.4); MONOCYTES # (AUTO) 0.3 X 10^3 (0.0-1.0); MONOCYTES % (AUTO) 3 % (0-12); NEUTROPHILS # (AUTO) 7.8 X 10^3 (1.8-7.8); NEUTROPHILS % (AUTO) 88 % (42-75); PLATELET COUNT 236 10^3/uL (130-400); RED BLOOD COUNT 4.63 10^6/uL (4.35-5.85); RED CELL DISTRIBUTION WIDTH 11.9 % (10.0-14.5)
[2018-09-03 22:06] LABS: ALANINE AMINOTRANSFERASE 25 U/L (0-55); ALBUMIN 3.9 GM/DL (3.2-4.5); ALKALINE PHOSPHATASE 53 U/L (40-136); BILIRUBIN,TOTAL 0.5 MG/DL (0.1-1.0); BUN/CREATININE RATIO 18; CALCIUM 9.2 MG/DL (8.5-10.1); CARBON DIOXIDE 24 MMOL/L (21-32); CHLORIDE 103 MMOL/L (98-107); CREATININE SERUM 0.74 MG/DL (0.60-1.30); GFR ESTIMATED > 60; GLUCOSE 134 MG/DL (70-105); LIPASE 19 U/L (8-78); POTASSIUM 4.8 MMOL/L (3.6-5.0); SODIUM 138 MMOL/L (135-145); TOTAL PROTEIN 6.7 GM/DL (6.4-8.2)
[2018-09-03] MEDS ORDERED: IOHEXOL 350 MG/ML 100 ML (OMNIPAQUE 350) VIAL IV ONE (22:30)
[2018-09-03] MEDS ORDERED: RECEIVED CONTRAST (Hold Metformin) IV SCH (22:30)
[2018-09-03] MEDS ORDERED: NS 100 ML (IVPB) BAG IV ONE (22:30)
[2018-09-04] MEDS ORDERED: RX-ONDANSETRON 4 MG ODT (ZOFRAN) PPK #4 SL STA (00:07)
[2018-09-04] MEDS ORDERED: KETOROLAC 30 MG/ML VIAL IVP ONE (00:15)
[2018-09-04] MEDS ORDERED: RX-HYDROCODONE/APAP 5/325 MG #4 TAB PK PO PRN (00:15)
--- NOTE | 2018-09-04 00:31 | ED Abdominal Pain ---
General Chief Complaint: Abdominal/GI Problems Stated Complaint: HAD EPIDURAL DONE TODAY/STOMACH PAIN Nursing Triage Note: Pt ambulated to triage in obvious discomfort. Pt reports having an epidural today by Dr. Yi for chronic back pain. Pt reports severe abdominal pain that began approximately an hour after returning home. Pt denies any additional symptoms at this time. Sepsis Screen: No Definite Risk Source of Information: Patient, Old Records Exam Limitations: No Limitations History of Present Illness Date Seen by Provider: Sep 03, 2018 Time Seen by Provider: 20:23 Initial Comments This 57-year-old woman since to the emergency room by private vehicle with complaints of upper abdominal pain. She has been having some chronic pain due to a large hiatal hernia but over the last 2-3 hours as been severe. She has had nausea without vomiting or diarrhea. She denies constipation. She is afebrile. She received an epidural injection today for chronic back pain. She is presently taking omeprazole [id number]. She had a recent EGD performed by Dr. Sevilla. Again a large paraesophageal hernia was noted. Biopsies were negative. Patient was advised to seek further surgical consultation in [place] to have the hernia repaired. However, patient did not want to travel as far as [place] and so has not yet taken action on this recommendation. Allergies and Home Medications Allergies Coded Allergies: codeine (Unverified Adverse Reaction, Unknown, 09/03/18) severe stomach pain Home Medications Budesonide/Formoterol Fumarate 10.2 Gm Hfa.aer.ad, 2 PUFF IH BID, (Reported) Celecoxib 100 Mg Capsule, 100 MG PO BID, (Reported) Gabapentin 100 Mg Capsule, 100 MG PO BID, (Reported) Gabapentin 300 Mg Capsule, 300 MG PO BID, (Reported) Hydrocodone/Acetaminophen 1 Each Tablet, 1 EACH PO Q4-6HR PRN for PAIN-MODERATE Prescribed by: BRAYDON LYLES on 09/04/1831 Ondansetron 4 Mg Tab.rapdis, 4 MG SL Q4H PRN for NAUSEA/VOMITING Prescribed by: BRAYDON LYLES on 09/04/1831 Sucralfate 1 Gm/10 Ml Oral.susp, 1 GM PO QID 30 minutes before meals and bedtime. Prescribed by: BRAYDON LYLES on 12/18/18 0032 Patient Home Medication List Home Medication List Reviewed: Yes Review of Systems Review of Systems Constitutional: no symptoms reported EENTM: No Symptoms Reported Respiratory: No Symptoms Reported Cardiovascular: No Symptoms Reported Gastrointestinal: See HPI Genitourinary: No Symptoms Reported Musculoskeletal: no symptoms reported Skin: no symptoms reported Psychiatric/Neurological: No Symptoms Reported Endocrine: No Symptoms Reported Hematologic/Lymphatic: No Symptoms Reported Past Gpwlkvi-Okkkqu-Gvroqs Hx Past Med/Social Hx: Reviewed and Corrections made Patient Social History Alcohol Use: Denies Use Recreational Drug Use: No Smoking Status: Never a Smoker Recent Foreign Travel: No Contact w/Someone Who Travel: No Recent Infectious Disease Expo: No Recent Hopitalizations: No Physical Abuse: No Sexual Abuse: No Mistreated: No Fear: No Immunizations Up To Date Tetanus Booster (TDap): Unknown Date of Pneumonia Vaccine: Sep 18, 2009 Seasonal Allergies Seasonal Allergies: Yes Past Medical History Surgeries: Yes (HIATAL HERNIA REPAIR, incisional hernia) Abdominal (multiple EGD procedures), Gallbladder, Hysterectomy Respiratory: Yes Asthma Currently Using CPAP: No Currently Using BIPAP: No Cardiac: No Neurological: No 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 Disorders: No Female 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 Disorders: Denies 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 Physical Exam Vital Signs Vital Signs - First Documented 09/03/18 20:11 Temp 98.5 Pulse 79 Resp 17 B/P (MAP) 174/83 (113) Pulse Ox 97 O2 Delivery Room Air Capillary Refill : Less Than 3 Seconds Height/Weight/BMI Height: 4'11.00" Weight: 120lbs. 0.0oz. 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 nml as tested, no motor/sensory deficits, alert, normal mood/affect, oriented x 3 Skin: normal color, warm/dry Progress/Results/Core Measures Results/Orders Lab Results Laboratory Tests Test 09/03/18 21:30 Range/Units White Blood Count 9.0 4.3-11.0 10^3/uL Red Blood Count 4.63 4.35-5.85 10^6/uL Hemoglobin 14.0 11.5-16.0 G/DL Hematocrit 42 35-52 % Mean Corpuscular Volume 90 80-99 FL Mean Corpuscular Hemoglobin 30 25-34 PG Mean Corpuscular Hemoglobin Concent 34 32-36 G/DL Red Cell Distribution Width 11.9 10.0-14.5 % Platelet Count 236 130-400 10^3/uL Mean Platelet Volume 8.9 7.4-10.4 FL Neutrophils (%) (Auto) 88 H 42-75 % Lymphocytes (%) (Auto) 9 L 12-44 % Monocytes (%) (Auto) 3 0-12 % Eosinophils (%) (Auto) 0 0-10 % Basophils (%) (Auto) 0 0-10 % Neutrophils # (Auto) 7.8 1.8-7.8 X 10^3 Lymphocytes # (Auto) 0.8 L 1.0-4.0 X 10^3 Monocytes # (Auto) 0.3 0.0-1.0 X 10^3 Eosinophils # (Auto) 0.0 0.0-0.3 10^3/uL Basophils # (Auto) 0.0 0.0-0.1 10^3/uL Sodium Level 138 135-145 MMOL/L Potassium Level 4.8 3.6-5.0 MMOL/L Chloride Level 103 98-107 MMOL/L Carbon Dioxide Level 24 21-32 MMOL/L Anion Gap 11 5-14 MMOL/L Blood Urea Nitrogen 13 7-18 MG/DL Creatinine 0.74 0.60-1.30 MG/DL Estimat Glomerular Filtration Rate > 60 BUN/Creatinine Ratio 18 Glucose Level 134 H 70-105 MG/DL Calcium Level 9.2 8.5-10.1 MG/DL Corrected Calcium 9.3 8.5-10.1 MG/DL Total Bilirubin 0.5 0.1-1.0 MG/DL Aspartate Amino Transf (AST/SGOT) 23 5-34 U/L Alanine Aminotransferase (ALT/SGPT) 25 0-55 U/L Alkaline Phosphatase 53 40-136 U/L Total Protein 6.7 6.4-8.2 GM/DL Albumin 3.9 3.2-4.5 GM/DL Lipase 19 8-78 U/L My Orders Orders - BRAYDON PEREZ MD Ondansetron Oral Dissolve Tab (Zofran (09/03/18 20:28) Lidocaine 2% Viscous 15 Ml (Xylocaine Vi (09/03/18 20:30) Antacid Suspension (Mylanta Suspension (09/03/18 20:30) Cbc With Automated Diff (09/03/18 21:11) Comprehensive Metabolic Panel (09/03/18 21:11) Lipase (09/03/18 21:11) Saline Lock/Iv-Start (09/03/18 21:11) Famotidine Injection (Pepcid Injection) (09/03/18 21:15) Fentanyl Injection (Sublimaze Injection (09/03/18 21:15) Fentanyl Injection (Sublimaze Injection (09/03/18 22:15) Ct Chest/Abdomen/Pelvis W (09/03/18 22:13) Iohexol Injection (Omnipaque 350 Mg/Ml 1 (09/03/18 22:30) Contrast Received (Contrast Received) (09/03/18 22:30) Ns (Ivpb) (Sodium Chloride 0.9% Ivpb Bag (09/03/18 22:30) Ketorolac Injection (Toradol Injection) (09/04/18 00:15) Rx-Ondansetron Po (Rx-Zofran Po) (09/04/18 00:07) Rx-Hydrocodone/Apap 5-325 Mg (Rx-Vicodin (09/04/18 00:15) Morphine Injection (Morphine Injection (09/04/18 01:00) Morphine Injection (Morphine Injection (09/04/18 02:00) Medications Given in ED Vital Signs/I&O 09/03/18 09/04/18 20:11 01:59 Temp 98.5 98.3 Pulse 79 57 Resp 17 18 B/P (MAP) 174/83 (113) 142/70 (94) Pulse Ox 97 95 O2 Delivery Room Air Room Air Blood Pressure Mean: 113 Progress Progress Note : Progress Note A Zofran and a GI cocktail did not reduce her pain. Workup with labs was pursued. This was unremarkable. Patient was treated with multiple IV pain medications without sufficient control of her pain. CT scan was obtained after discussion of risks and benefits. A large stable hiatal hernia was noted with bowel and pancreatic contents within the hernia. This case was discussed with Dr. Ley who also reviewed the CT. He stated a surgical referral was appropriate but no immediate interventions were necessary. Patient still struggled to get control of her pain. She inquired about admission. We tried oral pain medications to bridge her over to home pain management. She was not satisfied with this option either because she develops upset stomach with oral medications. She was given hydrocodone initially. She was then offered Percocet but decided she just wanted to leave at that point. She was dismissed home at her request even though her pain was not well controlled. She was given recommendation to follow up promptly with Dr. Sevilla. Diagnostic Imaging Plain Films/CT/US/NM/MRI: chest, abdomen, pelvis Comments CT chest, abdomen and pelvis with contrast viewed by me and [employer] report reviewed. There is a stable large hiatal hernia containing stomach, colon, pancreas. There was mild diverticulosis without any inflammation. No bowel obstruction. There was posterior soft tissue air in the paraspinal area. This correlates with patient's epidural injection today. Departure Impression Primary Impression: Paraesophageal hiatal hernia Additional Impressions: Epigastric pain Nausea alone Disposition: 01 HOME, SELF-CARE Condition: Improved Departure-Patient Inst. Decision time for Depature: 00:10 Referrals: DAVID KUMAR DO (PCP/Family) Primary Care Physician Patient Instructions: Hiatal Hernia Add. Discharge Instructions: Continue to take omeprazole. Take 20 mg twice daily. Add Carafate (sucralfate) as prescribed. Follow-up with Dr. Sevilla as soon as possible. Return to emergency room if symptoms worsen. All discharge instructions reviewed with patient and/or family. Voiced understanding. Scripts Sucralfate (Carafate) 1 Gm/10 Ml Oral.susp 1 GM PO QID, #1200 ML 30 minutes before meals and bedtime. Prov: BRAYDON PEREZ MD 09/04/18 Hydrocodone/Acetaminophen (Hydrocodone-Acetamin 5-325 mg) 1 Each Tablet 1 EACH PO Q4-6HR PRN for PAIN-MODERATE, #10 TAB Prov: BRAYDON PEREZ MD 09/04/18 Ondansetron (Ondansetron Odt) 4 Mg Tab.rapdis 4 MG SL Q4H PRN for NAUSEA/VOMITING, #10 TAB Prov: BRAYDON PEREZ MD 09/04/18 Copy Copies To 1: CICI SEVILLA MD, JOSHUA T MD Sep 04, 2018 00:31
[2018-09-04] MEDS ORDERED: SUCR1ORA5 PO (00:32)
[2018-09-04] MEDS ORDERED: ONDA4TAB11 SL (00:32)
[2018-09-04] MEDS ORDERED: HYDR-3812 PO (00:32)
[2018-09-04] MEDS ORDERED: morphine INJ 10 MG/ML 1ML (SYR OR VIAL) IVP ONE ×2 (01:00→02:00)
[2018-09-04 01:59] VITALS: BP 142/70
--- NOTE | 2018-09-04 08:45 | Diagnostic Imaging Report ---
PROCEDURE: CT chest, abdomen, and pelvis with contrast. INDICATION: Abdominal pain and nausea x 1 day. Pain in the umbilical region. TECHNIQUE: CT imaging of the chest, abdomen, and pelvis was performed following administration of intravenous contrast. CORRELATION STUDY: CT abdomen/pelvis of 07/17/2018. FINDINGS: CT CHEST: A large hernia is again demonstrated with the majority of the stomach, pancreas, and transverse colon along with some peritoneal fat herniated into the lower chest. The stomach is folded on itself. A high degree of obstruction, however, is not suggested. There is again seen moderate right lower lobe compressive atelectasis. Definitive consolidation does not appear to be suggested. The heart size is unremarkable. No significant pericardial effusion. CT ABDOMEN and PELVIS: The liver and spleen are normal in attenuation. The spleen is shifted towards the central aspect of the abdomen. Post cholecystectomy changes. The adrenal glands are unremarkable. The kidneys are with normal enhancement. Slightly prominent bilateral renal pelves without evidence to suggest obstruction. No calcification. Mild colonic diverticulosis is present without definitive evidence for acute diverticulitis. There is mild mucosal prominent appearance about the small bowel which could be reflective of nonspecific enteritis. No significant abdominal ascites. The urinary bladder is unremarkable. There is a small gas collection just to the left of the midline in the posterior paraspinal region. No discrete fluid collection. IMPRESSION: CT CHEST: 1. Negative for acute abnormality about the chest. 2. Stable, large posterior hernia containing a majority of the stomach, transverse colon, and pancreas. CT ABDOMEN and PELVIS: 1. A few prominent enhancing loops of small bowel may reflect nonspecific enteritis. No evidence for obstruction. (Not described on the preliminary interpretation.) 2. Mild colonic diverticulosis without evidence for acute diverticulitis. 3. Posterior paraspinal soft tissue air may be post operative, infection/inflammation versus potential injury and/or procedure related. Clinical correlation is recommended. No abscess formation. 4. Called to ER at 8:43 a.m. by cvb. Dictated by: Dictated on workstation # [id number]
== END 2018-09-04 01:59 | disposition home or self-care (01) ==
LOC: EDUNIT# 20:05 → ER 20:06
DX: K44.9 Diaphragmatic hernia without obstruction or gangrene (principal); J45.909 Unspecified asthma, uncomplicated; K21.9 Gastro-esophageal reflux disease without esophagitis; Z88.5 Allergy status to narcotic agent; Z87.19 Personal history of other diseases of the digestive system; Z90.710 Acquired absence of both cervix and uterus; Z98.890 Other specified postprocedural states
CPT/HCPCS: 36415; 71260; 74177; 80053; 83690; 85025

== ENCOUNTER 2018-11-23 14:38 | Inpatient (IN) | payer BC ==
[2018-11-23] VITALS (8 sets, daily range): BP systolic 136–155; BP diastolic 85–93
[~2018-11-23] VITALS: Ht 149.9 cm; Wt 53.1 kg
[~2018-11-23 14:38] MED LIST changes: +HYDR-3812 PO; +METR-145 PO; -METR-197 PO; +ONDA4TAB11 SL; +SUCR1ORA5 PO
[2018-11-23] MEDS ORDERED: NS IV 1000 ML 1,000 ML IV ONE ×3 (14:56→17:51)
[2018-11-23] MEDS ORDERED: RT-ALBUTEROL/IPRATROPIUM 3 ML (DUONEB) VIAL INH ONE (15:00)
--- NOTE | 2018-11-23 15:00 | NUR ---
Paddy rouse in ED - 11/23/18 at 1719 by TYRESE ASSUMED CARE OF PT. INTRODUCED SELF TO PT.
[2018-11-23] MEDS ORDERED: HYDR118S10 PO (15:01)
[2018-11-23 15:08] LABS: BASOPHILS # (AUTO) 0.1 10^3/uL (0.0-0.1); BASOPHILS % (AUTO) 1 % (0-10); EOSINOPHILS # (AUTO) 0.3 10^3/uL (0.0-0.3); EOSINOPHILS % (AUTO) 2 % (0-10); HEMATOCRIT 43 % (35-52); HEMOGLOBIN 13.8 G/DL (11.5-16.0); LYMPHOCYTES # (AUTO) 1.8 X 10^3 (1.0-4.0); LYMPHOCYTES % (AUTO) 15 % (12-44); MEAN CORPUSCULAR HEMOGLOBIN 29 PG (25-34); MEAN CORPUSCULAR HGB CONC 32 G/DL (32-36); MEAN CORPUSCULAR VOLUME 90 FL (80-99); MEAN PLATELET VOLUME 8.5 FL (7.4-10.4); MONOCYTES # (AUTO) 0.5 X 10^3 (0.0-1.0); MONOCYTES % (AUTO) 4 % (0-12); NEUTROPHILS # (AUTO) 9.2 X 10^3 (1.8-7.8); NEUTROPHILS % (AUTO) 78 % (42-75); PLATELET COUNT 299 10^3/uL (130-400); RED CELL DISTRIBUTION WIDTH 13.4 % (10.0-14.5); WHITE BLOOD COUNT 11.7 10^3/uL (4.3-11.0)
[2018-11-23 15:22] LABS: INR 1.1 (0.8-1.4); PROTHROMBIN TIME PATIENT 13.7 SEC (12.2-14.7)
[2018-11-23 15:28] LABS: ALANINE AMINOTRANSFERASE 59 U/L (0-55); ALBUMIN 3.8 GM/DL (3.2-4.5); ALKALINE PHOSPHATASE 90 U/L (40-136); BILIRUBIN,TOTAL 0.6 MG/DL (0.1-1.0); BUN/CREATININE RATIO 22; CALCIUM 9.4 MG/DL (8.5-10.1); CARBON DIOXIDE 22 MMOL/L (21-32); CHLORIDE 103 MMOL/L (98-107); GFR ESTIMATED > 60; GLUCOSE 93 MG/DL (70-105); POTASSIUM 3.9 MMOL/L (3.6-5.0); SODIUM 141 MMOL/L (135-145); TOTAL PROTEIN 7.7 GM/DL (6.4-8.2)
[2018-11-23 15:31] LABS: BAND NEUTROPHILS 0 %; BASOPHILS % (MANUAL) 0 %; EOSINOPHILS % (MANUAL) 1 %; LYMPHOCYTES % (MANUAL) 12 %; MONOCYTES % (MANUAL) 4 %; NEUTROPHILS % (MANUAL) 83 %; RBC MORPH NORMAL
--- NOTE | 2018-11-23 15:49 | Diagnostic Imaging Report ---
INDICATION: Cough. COMPARISON: 12/08/2015 FINDINGS: Single frontal radiographic view of the chest was obtained and demonstrates interval development of moderate soft tissue emphysema, left greater than right. There may be some gas within the mediastinum. No pneumothorax is seen on either side. There are also bibasilar effusions and associated bibasilar airspace disease, left greater than right. Cardiac silhouette is heavily obscured, but may be borderline prominent. Pulmonary vasculature is within normal limits. Bony structures show no gross acute abnormalities. IMPRESSION: 1. Soft tissue emphysema with probable pneumomediastinum. Findings are concerning for underlying esophageal perforation. Correlation with CT is recommended. 2. Bilateral pleural effusions with associated atelectasis and/or infiltrate, left greater than right. Aspiration should also be within the differential. Pleural collection related to underlying esophageal leak is also a consideration. Results called to Dr. Barragan by Dr. Hernandez at approximately 1544 hours on 11/23/2018. Dictated by: Dictated on workstation # [id number]
[2018-11-23] MEDS ORDERED: fentaNYL INJECTION 100 MCG/2 ML AMP IVP STA (16:02)
--- NOTE | 2018-11-23 16:09 | ED Respiratory ---
General Chief Complaint: Respiratory Problems Stated Complaint: PROBLEMS SWALLOWING TERRIBLE COUGH Nursing Triage Note: ARRIVED VIA [facility] TO TRIAGE WITH COMPLAINTS OF GENERALIZED WEAKNESS, SOA, COUGH, AND NOT ABLE TO KEEP ANYTHNG DOWN. STATES SHE HAD A HIATEL HERNIA ON Oct IN [place]. Source: patient Exam Limitations: no limitations History of Present Illness Date Seen by Provider: Nov 23, 2018 Time Seen by Provider: 14:54 Initial Comments Here with report of weakness, shortness of breath, cough and not amenable to keep anything down since she had her hiatal hernia repair on November 14. This was apparently done in [place] at the [facility] there. She states that she's not been unable to really swallow anything including fluids. She is coughing up frothy sputum. Complains of back pain and central chest pain with this. Arrives with O2 sat of 81%. She does have history of asthma but is not normally on oxygen. She is not a smoker and never has been. Timing/Duration: other (10 days) Severity: moderate, severe Prior Episodes/Possible Cause: occasional episodes Modifying Factors: Improves With Oxygen Associated Symptoms: chest pain/soreness, cough; No fever/chills, No nasal congestion, No nasal drainage; shortness of breath; No sore throat; wheezing Allergies and Home Medications Allergies Coded Allergies: codeine (Unverified Adverse Reaction, Unknown, 09/03/18) severe stomach pain Home Medications Budesonide/Formoterol Fumarate 10.2 Gm Hfa.aer.ad, 2 PUFF IH BID, (Reported) Celecoxib 100 Mg Capsule, 100 MG PO BID, (Reported) Gabapentin 100 Mg Capsule, 100 MG PO BID, (Reported) Gabapentin 300 Mg Capsule, 300 MG PO BID, (Reported) Hydrocodone/Acetaminophen 1 Each Tablet, 1 EACH PO Q4-6HR PRN for PAIN-MODERATE Prescribed by: BRAYDON LYLES on 09/04/1831 Ondansetron 4 Mg Tab.rapdis, 4 MG SL Q4H PRN for NAUSEA/VOMITING Prescribed by: BRAYDON LYLES on 09/04/1831 Sucralfate 1 Gm/10 Ml Oral.susp, 1 GM PO QID 30 minutes before meals and bedtime. Prescribed by: BRAYDON LYLES on 09/04/1831 Patient Home Medication List Home Medication List Reviewed: Yes Review of Systems Review of Systems Constitutional: see HPI; No chills, No fever EENTM: No nose congestion Respiratory: see HPI, wheezing Cardiovascular: see HPI, chest pain; No edema Gastrointestinal: abdominal pain, nausea, vomiting Genitourinary: no symptoms reported Musculoskeletal: back pain; No muscle pain Skin: no symptoms reported Psychiatric/Neurological: No Symptoms Reported All Other Systems Reviewed Negative Unless Noted: Yes Past Vilplpw-Qragmy-Ljeibx Hx Past Med/Social Hx: Reviewed Nursing Past Med/Soc Hx Patient Social History Alcohol Use: Denies Use Recreational Drug Use: No Smoking Status: Never a Smoker Recent Foreign Travel: No Contact w/Someone Who Travel: No Recent Infectious Disease Expo: No Recent Hopitalizations: No Immunizations Up To Date Tetanus Booster (TDap): Unknown Date of Pneumonia Vaccine: Sep 18, 2009 Seasonal Allergies Seasonal Allergies: Yes Past Medical History Surgeries: Yes (HIATAL HERNIA REPAIR, incisional hernia) Abdominal, Gallbladder, Hysterectomy Respiratory: Yes Asthma Currently Using CPAP: No Currently Using BIPAP: No Cardiac: Yes (RECENT HIGH BLOOD PRESSURE SINCE THE SURGERY. 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 No Pertinent Family Hx Physical Exam Vital Signs - First Documented 11/23/18 11/23/18 11/23/18 14:45 15:02 18:20 Temp 98.0 Pulse 123 Resp 18 B/P (MAP) 174/91 (118) Pulse Ox 81 O2 Delivery Room Air O2 Flow Rate 4.00 FiO2 100 Capillary Refill : Less Than 3 Seconds Height: 4'11.00" Weight: 116lbs. 0.0oz. 52.250265vr; 24.2 BMI Method:Stated General Appearance: WD/WN, no apparent distress HEENT: PERRL/EOMI, pharynx normal Neck: full range of motion, supple Respiratory: decreased breath sounds, crackles, wheezing, expiration, plerual rub Cardiovascular: no murmur, tachycardia Gastrointestinal: soft, tenderness Extremities: non-tender, normal inspection Neurologic/Psychiatric: alert, normal mood/affect Skin: normal color, warm/dry Focused Exam Lactate Level 11/23/18 14:57: Lactic Acid Level 1.03 Lactic Acid Level Laboratory Tests Test 11/23/18 14:57 Lactic Acid Level 1.03 MMOL/L (0.50-2.00) Procedures/Interventions Patient Education: Explained Benefits, Explained Risks, Pt. Ack. Understanding Agreement on procedure with pt: Yes Breath Sounds per Auscultation: Crackles, Wheezes Heart Sounds per Auscultation: Regular Airway Exam: Mouth opens >2 fingers, Neck Full Range of Motion, Visulation of Uvula Sedation Adminstration Time: 18:03 Total Time spent in 20 1833 Coulon procedure complete. Patient tolerated procedure well with no complications. Patient did receive a total of 100 g of fentanyl in 2 pushes of 50 g each and 5 mg of Versed in 2 pushes of 2.5 mg each. Procedure for chest tube placement by Dr. Milner. Re-examination Time: 18:45 Re-examination : Patient with blood pressure of 141/81 and heart rate of 104 with O2 sat of 97 % on 4 L via nasal cannula. End-tidal CO2 29. Progress/Results/Core Measures Suspected Sepsis Recent Fever Within 48 Hours: No Infection Criteria Present: Suspected New Infection New/Unexplained Altered Menta: No Sepsis Screen: No Definite Risk SIRS Temperature:98.0 Pulse: 123 Respiratory Rate: 18 Laboratory Tests 11/23/18 14:57: White Blood Count 11.7H Blood Pressure 174 /91 Mean: 118 11/23/18 14:57: Lactic Acid Level 1.03 Laboratory Tests 11/23/18 14:57: Creatinine 0.60, INR Comment 1.1, Platelet Count 299, Total Bilirubin 0.6 Results/Orders Lab Results Laboratory Tests Test 11/23/18 14:57 11/23/18 18:00 Range/Units White Blood Count 11.7 H 4.3-11.0 10^3/uL Red Blood Count 4.76 4.35-5.85 10^6/uL Hemoglobin 13.8 11.5-16.0 G/DL Hematocrit 43 35-52 % Mean Corpuscular Volume 90 80-99 FL Mean Corpuscular Hemoglobin 29 25-34 PG Mean Corpuscular Hemoglobin Concent 32 32-36 G/DL Red Cell Distribution Width 13.4 10.0-14.5 % Platelet Count 299 130-400 10^3/uL Mean Platelet Volume 8.5 7.4-10.4 FL Neutrophils (%) (Auto) 78 H 42-75 % Lymphocytes (%) (Auto) 15 12-44 % Monocytes (%) (Auto) 4 0-12 % Eosinophils (%) (Auto) 2 0-10 % Basophils (%) (Auto) 1 0-10 % Neutrophils # (Auto) 9.2 H 1.8-7.8 X 10^3 Lymphocytes # (Auto) 1.8 1.0-4.0 X 10^3 Monocytes # (Auto) 0.5 0.0-1.0 X 10^3 Eosinophils # (Auto) 0.3 0.0-0.3 10^3/uL Basophils # (Auto) 0.1 0.0-0.1 10^3/uL Neutrophils % (Manual) 83 % Lymphocytes % (Manual) 12 % Monocytes % (Manual) 4 % Eosinophils % (Manual) 1 % Basophils % (Manual) 0 % Band Neutrophils 0 % Blood Morphology Comment NORMAL Prothrombin Time 13.7 12.2-14.7 SEC INR Comment 1.1 0.8-1.4 Activated Partial Thromboplast Time 32 24-35 SEC Sodium Level 141 135-145 MMOL/L Potassium Level 3.9 3.6-5.0 MMOL/L Chloride Level 103 98-107 MMOL/L Carbon Dioxide Level 22 21-32 MMOL/L Anion Gap 16 H 5-14 MMOL/L Blood Urea Nitrogen 13 7-18 MG/DL Creatinine 0.60 0.60-1.30 MG/DL Estimat Glomerular Filtration Rate > 60 BUN/Creatinine Ratio 22 Glucose Level 93 70-105 MG/DL Lactic Acid Level 1.03 0.50-2.00 MMOL/L Calcium Level 9.4 8.5-10.1 MG/DL Corrected Calcium 9.6 8.5-10.1 MG/DL Total Bilirubin 0.6 0.1-1.0 MG/DL Aspartate Amino Transf (AST/SGOT) 37 H 5-34 U/L Alanine Aminotransferase (ALT/SGPT) 59 H 0-55 U/L Alkaline Phosphatase 90 40-136 U/L Troponin I < 0.028 <0.028 NG/ML B-Type Natriuretic Peptide 18.0 <100.0 PG/ML Total Protein 7.7 6.4-8.2 GM/DL Albumin 3.8 3.2-4.5 GM/DL Urine Color YELLOW Urine Clarity CLEAR Urine pH 5 5-9 Urine Specific [place] 1.015 L 1.016-1.022 Urine Protein 2+ H NEGATIVE Urine Glucose (UA) NEGATIVE NEGATIVE Urine Ketones 4+ H NEGATIVE Urine Nitrite NEGATIVE NEGATIVE Urine Bilirubin NEGATIVE NEGATIVE Urine Urobilinogen NORMAL NORMAL MG/DL Urine Leukocyte Esterase 1+ H NEGATIVE Urine RBC (Auto) NEGATIVE NEGATIVE Urine RBC NONE /HPF Urine WBC 0-2 /HPF Urine Squamous Epithelial Cells 5-10 /HPF Urine Crystals NONE /LPF Urine Bacteria NEGATIVE /HPF Urine Casts NONE /LPF Urine Mucus NEGATIVE /LPF Urine Culture Indicated NO Micro Results Microbiology 11/23/18 Influenza Types A,B Antigen (LEONEL) - Final, Complete My Orders Orders - CHEVY BANDA MD Cbc With Automated Diff (11/23/18 14:56) Comprehensive Metabolic Panel (11/23/18 14:56) Blood Culture (11/23/18 14:56) Sputum Culture (11/23/18 14:56) Urinalysis (11/23/18 14:56) Urine Culture (11/23/18 14:56) Protime With Inr (11/23/18 14:56) Partial Thromboplastin Time (11/23/18 14:56) Chest 1 View, Ap/Pa Only (11/23/18 14:56) Saline Lock/Iv-Start (11/23/18 14:56) Saline Lock/Iv-Start (11/23/18 14:56) Ekg Tracing (11/23/18 14:56) Troponin I (11/23/18 14:56) Vital Signs Adult Sepsis Patie Q15M (11/23/18 14:56) O2 (11/23/18 14:56) Remove Rings In Anticipation O (11/23/18 14:56) Lactic Acid Analyzer (11/23/18 14:56) Ns Iv 1000 Ml (Sodium Chloride 0.9%) (11/23/18 14:56) BNP (11/23/18 14:56) Influenza A And B Antigens (11/23/18 15:00) Albuterol/Ipra Inhalation Soln (Annb I (11/23/18 15:00) Svn Small Volume Nebulizer (11/23/18 15:00) Manual Differential (11/23/18 14:57) Ct Angio Chest W (11/23/18 15:43) Fentanyl Injection (Sublimaze Injection (11/23/18 16:02) Fentanyl Injection (Sublimaze Injection (11/23/18 16:15) Piperacillin Sodium/Tazobactam (Zosyn Vi (11/23/18 16:15) Iohexol Injection (Omnipaque 350 Mg/Ml 1 (11/23/18 17:00) Received Contrast (Contrast Received) (11/23/18 17:00) Ns (Ivpb) (Sodium Chloride 0.9% Ivpb Bag (11/23/18 17:00) Saline Lock/Iv-Start (11/23/18 17:16) Ns Iv 1000 Ml (Sodium Chloride 0.9%) (11/23/18 17:16) Vancomycin Injection (Vancomycin Injecti (11/23/18 17:30) Midazolam Injection (Versed Injection) (11/23/18 17:32) Saline Lock/Iv-Start (11/23/18 17:51) Ns Iv 1000 Ml (Sodium Chloride 0.9%) (11/23/18 17:51) Midazolam Injection (Versed Injection) (11/23/18 18:00) Fentanyl Injection (Sublimaze Injection (11/23/18 18:00) Lidocaine 1% Inj 20 Ml (Xylocaine 1% Inj (11/23/18 18:11) Lidocaine 1% Inj 20 Ml (Xylocaine 1% Inj (11/23/18 18:22) Medications Given in ED Current Medications Medications Dose Ordered Sig/Toni Route Start Time Stop Time Status Last Admin Dose Admin Albuterol/ Ipratropium 3 ml ONCE ONCE INH 11/23/18 15:00 11/23/18 15:01 DC 11/23/18 15:05 3 ML Fentanyl Citrate 50 mcg ONCE ONCE IVP 11/23/18 16:15 11/23/18 16:16 DC 11/23/18 16:06 50 MCG Fentanyl Citrate 50 mcg ONCE ONCE IVP 11/23/18 18:00 11/23/18 18:01 DC 11/23/18 18:16 50 MCG Iohexol 100 ml ONCE ONCE IV 11/23/18 17:00 11/23/18 17:01 DC 11/23/18 16:50 95 ML Midazolam HCl 2.5 mg ONCE ONCE IVP 11/23/18 18:00 11/23/18 18:01 DC 11/23/18 18:16 2.5 MG Piperacillin Sod/ Tazobactam Sod 4.5 gm/Sodium Chloride 100 ml @ 200 mls/hr ONCE ONCE IV 11/23/18 16:15 11/23/18 16:44 DC 11/23/18 16:24 200 MLS/HR Sodium Chloride 1,000 ml @ 0 mls/hr Q0M ONCE IV 11/23/18 14:56 11/23/18 14:58 DC 11/23/18 15:05 0 MLS/HR Sodium Chloride 1,000 ml @ 0 mls/hr Q0M ONCE IV 11/23/18 17:51 11/23/18 17:52 DC 11/23/18 18:02 1,000 MLS/HR Vital Signs/I&O 11/23/18 11/23/18 11/23/18 11/23/18 14:45 15:02 15:08 18:17 Temp 98.0 Pulse 123 Resp 18 B/P (MAP) 174/91 (118) Pulse Ox 81 93 O2 Delivery Room Air Nasal Cannula Nasal Cannula OxyMask O2 Flow Rate 4.00 3.00 11/23/18 11/23/18 11/23/18 18:20 18:24 18:29 Pulse 81 107 112 103 Resp 16 16 16 B/P (MAP) 132/88 141/92 123/78 Pulse Ox 96 97 98 O2 Delivery OxyMask Room Air OxyMask FiO2 100 100 100 Capillary Refill : Less Than 3 Seconds Blood Pressure Mean: 118 Progress Note : Progress Note Seen and evaluated. IV, labs, EKG and chest x-ray ordered. Blood cultures and lactic acid ordered. Mixed picture but definitely concerning given recent surgery for both postsurgical issues and pulmonary embolism. CT will be ordered pending kidney function studies. Monitor patient. 1540: I did discuss the case with the radiologist and there is concerns about pneumomediastinum as well as subcutaneous emphysema. There is also concerned about infiltrate. We will get CT angiogram of the chest which will evaluate esophageal structures and pulmonary embolism. Zosyn 4.5 g IV ordered due to concerns of infiltrate as well as esophageal rupture. Monitor patient. We will get second IV line. 1740: CT is complete and does show large left-sided pneumothorax and right pleural effusion. I did discuss the case with Dr. Milner that 1700. He did arrive to the ER and we will do chest tube to the left chest wall. He will place the tube and I will manage the Sedation. Patient will get CT abdomen pelvis per his request and she is currently in CT. She is consented for chest tube. Patient was placed on high flow O2 as soon as pneumothorax was noted on CT. Overall she is feeling much better. Monitor patient. ECG Initial ECG Impression Date: Nov 23, 2018 Initial ECG Impression Time: 14:57 Initial ECG Rate: 121 Comment Sinus tachycardia with left ventricular hypertrophy. Normal axis. No evidence of ST elevation ME. Similar morphology faster rate and May 2016. Interpreted by me. Diagnostic Imaging Diagonstic Imaging: Xray Plain Films/CT/US/NM/MRI: chest Comments NAME: HERBERT XAVIER MED REC#: [id number] PT STATUS: REG ER : 1960 PHYSICIAN: CHEVY BANDA MD ADMIT DATE: 11/23/18/ER Signed Date of Exam: 11/23/18 CHEST 1 VIEW, AP/PA ONLY INDICATION: Cough. COMPARISON: 12/08/2015 FINDINGS: Single frontal radiographic view of the chest was obtained and demonstrates interval development of moderate soft tissue emphysema, left greater than right. There may be some gas within the mediastinum. No pneumothorax is seen on either side. There are also bibasilar effusions and associated bibasilar airspace disease, left greater than right. Cardiac silhouette is heavily obscured, but may be borderline prominent. Pulmonary vasculature is within normal limits. Bony structures show no gross acute abnormalities. IMPRESSION: 1. Soft tissue emphysema with probable pneumomediastinum. Findings are concerning for underlying esophageal perforation. Correlation with CT is recommended. 2. Bilateral pleural effusions with associated atelectasis and/or infiltrate, left greater than right. Aspiration should also be within the differential. Pleural collection related to underlying esophageal leak is also a consideration. Results called to Dr. Banda by Dr. Johns at approximately 1544 hours on 11/23/2018. Dictated by: Dictated on workstation # [id number] Dict: 11/23/18 1538 Trans: 11/23/18 1713 Interpreted by: MARLON JOHNS MD Electronically signed by: MARLON JOHNS MD 11/23/18 1713 Diagonstic Imaging: CT Plain Films/CT/US/NM/MRI: chest Comments [facility] [place] NAME: HERBERT XAVIER [facility] REC#: [id number] PT STATUS: REG ER : 1960 PHYSICIAN: CHEVY BANDA MD ADMIT DATE: 11/23/18/ER Draft Date of Exam:11/23/18 CT ANGIO CHEST W PROCEDURE: CT angiography of the chest with contrast. TECHNIQUE: Multiple contiguous axial images were obtained through the chest after uneventful bolus administration of intravenous contrast. 2D reconstructed CTA MIP acquisitions were also performed. INDICATION: Shortness of air, history of hiatal hernia repair. COMPARISON: CT of the chest from 09/03/2018. FINDINGS: The pulmonary arteries are diagnostic to the segmental level. No filling defects are seen to indicate a pulmonary embolus. The heart is normal in size. There is no pericardial effusion. The aorta appears normal. Calcified lymph nodes are seen in the mediastinum. There is fluid in the esophagus. There is a moderate right and a small left pleural effusion. There is a moderate to large left pneumothorax. A minimal right pneumothorax is present. There is atelectasis throughout the left lung, with a dense consolidation in the left lower lobe concerning for pneumonia or possibly hemorrhage. There is atelectasis or scarring in the perihilar region, bilaterally. No acute osseous abnormality is seen. There is marked soft tissue air throughout the chest, particularly anteriorly, and in the left chest. There is pneumomediastinum present. Imaged portions of the upper abdomen demonstrate edema about the proximal stomach, likely from recent surgery. There is colonic diverticulosis. IMPRESSION: 1. Bilateral pneumothoraces, moderate to large on the left and small on the right. There is pneumomediastinum, mild pneumoperitoneum as well as subcutaneous emphysema in the chest and extending into the neck. 2. Moderate right and small left pleural effusions. 3. Dense consolidation in the left lower lobe, most concerning for pneumonia. 4. Atelectasis and scarring in the perihilar region, bilaterally, with additional atelectasis in the left lung. 5. Moderate soft tissue edema about the proximal stomach, likely from postsurgical changes. 6. Fluid in the esophagus consistent with reflux. An esophageal leak is not excluded. 7. No pulmonary embolus. Findings discussed with CHEVY BANDA MD by Dr. Perez, on 11/23/2018 at 5:08 p.m. Dictated on workstation # [id number] Dict: 11/23/18 1658 Trans: 11/23/18 1716 [facility] [id number] Interpreted by: MARITZA PEREZ MD Electronically signed by: Departure Communication (Admissions) Time/Spoke to Admitting Phy: 17:00 Impression Primary Impression: Pneumothorax, left Additional Impressions: Pleural effusion, right Left lower lobe pneumonia Qualified Codes: J18.1 - Lobar pneumonia, unspecified organism Disposition: ADMITTED INPATIENT Condition: Stable Admissions Decision to Admit Reason: Admit from ER (General) Decision to Admit/Date: Nov 23, 2018 Time/Decision to Admit Time: 17:00 Departure-Patient Inst. Referrals: DAVID KUMAR DO (PCP/Family) Primary Care Physician CHEVY BANDA MD Nov 23, 2018 16:09
--- NOTE | 2018-11-23 16:11 | NUR ---
Paddy rouse in [facility] - 11/23/18 at 1719 by TYRESE LAB CONTACTED FOR BLOOD DRAW.
[2018-11-23] MEDS ORDERED: fentaNYL INJECTION 100 MCG/2 ML AMP IVP ONE ×2 (16:15→18:00)
[2018-11-23] MEDS ORDERED: PIPERACILLIN SODIUM/TAZOBACTAM 4.5 GM in NS (IVPB) 100 ML IV ONE (16:15)
[2018-11-23] MEDS ORDERED: IOHEXOL 350 MG/ML 100 ML (OMNIPAQUE 350) VIAL IV ONE (17:00)
[2018-11-23] MEDS ORDERED: HOLD METFORMIN - RECEIVED CONTRAST 20 ML VIAL IV SCH (17:00)
[2018-11-23] MEDS ORDERED: NS 100 ML (IVPB) BAG IV ONE (17:00)
--- NOTE | 2018-11-23 17:01 | NUR ---
PT CHANGED TO OXYMASK PER DR ORDER.
--- NOTE | 2018-11-23 17:05 | NUR ---
IN TALKING TO PT AT THIS TIME.
--- NOTE | 2018-11-23 17:08 | NUR ---
TALKING TO RADIOLOGIST ON THE PHONE AT THIS TIME.
--- NOTE | 2018-11-23 17:16 | Diagnostic Imaging Report ---
PROCEDURE: CT angiography of the chest with contrast. TECHNIQUE: Multiple contiguous axial images were obtained through the chest after uneventful bolus administration of intravenous contrast. 2D reconstructed CTA MIP acquisitions were also performed. INDICATION: Shortness of air, history of hiatal hernia repair. COMPARISON: CT of the chest from 09/03/2018. FINDINGS: The pulmonary arteries are diagnostic to the segmental level. No filling defects are seen to indicate a pulmonary embolus. The heart is normal in size. There is no pericardial effusion. The aorta appears normal. Calcified lymph nodes are seen in the mediastinum. There is fluid in the esophagus. There is a moderate right and a small left pleural effusion. There is a moderate to large left pneumothorax. A minimal right pneumothorax is present. There is atelectasis throughout the left lung, with a dense consolidation in the left lower lobe concerning for pneumonia or possibly hemorrhage. There is atelectasis or scarring in the perihilar region, bilaterally. No acute osseous abnormality is seen. There is marked soft tissue air throughout the chest, particularly anteriorly, and in the left chest. There is pneumomediastinum present. Imaged portions of the upper abdomen demonstrate edema about the proximal stomach, likely from recent surgery. There is colonic diverticulosis. IMPRESSION: 1. Bilateral pneumothoraces, moderate to large on the left and small on the right. There is pneumomediastinum, mild pneumoperitoneum as well as subcutaneous emphysema in the chest and extending into the neck. 2. Moderate right and small left pleural effusions. 3. Dense consolidation in the left lower lobe, most concerning for pneumonia. 4. Atelectasis and scarring in the perihilar region, bilaterally, with additional atelectasis in the left lung. 5. Moderate soft tissue edema about the proximal stomach, likely from postsurgical changes. 6. Fluid in the esophagus consistent with reflux. An esophageal leak is not excluded. 7. No pulmonary embolus. Findings discussed with CHEVY BANDA MD by Dr. Shearer, on 11/23/2018 at 5:08 p.m. Dictated by: Dictated on workstation # [id number]
[2018-11-23] MEDS ORDERED: VANCOMYCIN INJECTION 1,000 MG in NS (IVPB) 250 ML IV SCH (17:30)
[2018-11-23] MEDS ORDERED: MIDAZOLAM 5 MG/5 ML (VERSED) VIAL ONE (17:32)
[2018-11-23] MEDS ORDERED: MIDAZOLAM 2 MG/2 ML (VERSED) VIAL IVP ONE (18:00)
[2018-11-23 18:05] LABS: BILIRUBIN,URINE NEGATIVE (NEGATIVE); CLARITY,URINE CLEAR; COLOR,URINE YELLOW; GLUCOSE, URINE (UA) NEGATIVE (NEGATIVE); KETONES,URINE 4+ (NEGATIVE); LEUKOCYTE ESTERASE ,URINE 1+ (NEGATIVE); NITRITE,URINE NEGATIVE (NEGATIVE); PH,URINE 5 (5-9); PROTEIN,URINE 2+ (NEGATIVE); UROBILINOGEN,URINE NORMAL (NORMAL)
--- NOTE | 2018-11-23 18:05 | NUR ---
PT MOVED TO ROOM 03 FOR CHEST TUBE PLACEMENT PER DR ORDER.
[2018-11-23] MEDS ORDERED: LIDOCAINE 1% INJ 20 ML 20 ML VIAL ONE ×2 (18:11→18:22)
[2018-11-23 18:13] LABS: BACTERIA,URINE NEGATIVE /HPF; WBC,URINE 0-2 /HPF
--- NOTE | 2018-11-23 18:26 | Diagnostic Imaging Report ---
PROCEDURE: CT abdomen and pelvis without contrast. TECHNIQUE: Multiple contiguous axial images were obtained through the abdomen and pelvis without the use of intravenous contrast. INDICATION: Abdominal pain. FINDINGS: The CTA chest exam performed prior to this study revealed bilateral pneumothoraces and pneumomediastinum as well as extensive subcutaneous emphysema. There was also pneumonia/atelectasis involving the left lung base with bilateral pleural effusions. Those findings are again evident on this exam. There also appears to be a small pneumoperitoneum. By history, the patient underwent hernia surgery 10 days ago. The previous CT chest and abdomen exam of 09/03/2018 did note that there was a large hernia involving the right lung base with portions of the stomach, transverse colon, and pancreas in the hernia. In the interval since the prior exam, the patient has undergone a surgical repair of the hernia.. The stomach now lies in the lower left thorax. There is some fluid within the stomach, and there are droplets of gas in this region as well. There is also distortion of the mesenteric fat indicating edema/inflammation. These findings may be a sequela patient's prior surgical procedure. However, because the stomach is only partially distended by gas and fluid, it is difficult to assess. If further study is desired, then a followup exam with water-soluble oral contrast would be recommended. The pancreas is not well visualized. The spleen, kidneys, liver, aorta, and inferior vena cava are unremarkable for an acute abnormality. As noted on the previous exam, the gallbladder is surgically absent. There are several fluid-filled segments of small bowel present. This is nonspecific but may be related to a postoperative ileus. There is no sign of a bowel obstruction. There is diverticulosis of the sigmoid and descending colon, but there is no sign of acute diverticulitis. The urinary bladder is partially filled with contrast. There is no obvious bladder abnormality evident. The uterus is surgically absent. There is gas in the subcutaneous fat along the anterior aspect of the lower abdomen and pelvis on the and left. This gas extends towards the pubic symphysis on the left as well. The bone windows show no sign of a fracture or of a destructive lesion. IMPRESSION: 1. The bilateral pneumothoraces and subcutaneous emphysema and left lower lobe atelectasis/pneumonia and bilateral pleural effusions seen on the CTA chest exam are again visualized on this study. 2. There is a small pneumoperitoneum. This is most likely a sequela of the patient's prior surgery. The large hernia on the right is no longer evident, but the stomach is now in the lower thorax on the left. There is distortion of the mesenteric fat in this area consistent with edema/inflammation. The stomach itself seems to be intact but difficult to evaluate. Recommendations as above. 3. The pancreas is not well visualized. 4. The fluid in the small bowel is nonspecific but may be related to a postoperative ileus. 5. These results were discussed with Dr. Milner. Dictated by: Dictated on workstation # [id number]
--- NOTE | 2018-11-23 18:33 | NUR ---
PT AWAKE ET TALKING A/O X3. DENIES NEEDS. DR BANDA AND DR SEVILLA IN ROOM AT THIS TIME. TAPING CHEST TUBE IN PLACE.
--- NOTE | 2018-11-23 18:36 | NUR ---
DR BANDA IN SWITICHING PT FROM [facility] TO [place] AT 2L.
--- NOTE | 2018-11-23 18:42 | NUR ---
OXYGEN INCREASED TO 4L PER DR BANDA. BLOOD DRAINAGE NOTED IN CHEST TUBE.
--- NOTE | 2018-11-23 19:00 | History & Physicial ---
History of Present Illness History of Present Illness Reason for visit/HPI increased shortness of breath and dysphagia 8 days following robotic assisted repair of recurrent paraesophageal hernia. CT scan shows a left anterior pneumothorax with bilateral atelectasis and subcutaneous emphysema. Date of Admission 11/23/18 Date Seen by a Provider: Nov 23, 2018 Time Seen by a Provider: 17:00 I consulted on this patient on 11/23/18 18:56 Attending Physician Admitting Physician Kartik Grande DO Consult Allergies and Home Medications Allergies Coded Allergies: codeine (Unverified Adverse Reaction, Unknown, 09/03/18) severe stomach pain Home Medications Budesonide/Formoterol Fumarate 10.2 Gm Hfa.aer.ad, 2 PUFF IH BID, (Reported) Celecoxib 100 Mg Capsule, 100 MG PO BID, (Reported) Gabapentin 100 Mg Capsule, 100 MG PO BID, (Reported) Gabapentin 300 Mg Capsule, 300 MG PO BID, (Reported) Hydrocodone/Acetaminophen 1 Each Tablet, 1 EACH PO Q4-6HR PRN for PAIN-MODERATE Prescribed by: BRAYDON LYLES on 09/04/1831 Ondansetron 4 Mg Tab.rapdis, 4 MG SL Q4H PRN for NAUSEA/VOMITING Prescribed by: BRAYDON LYLES on 09/04/1831 Sucralfate 1 Gm/10 Ml Oral.susp, 1 GM PO QID 30 minutes before meals and bedtime. Prescribed by: BRAYDON LYLES on 09/04/1831 Patient Home Medication List Home Medication List Reviewed: Yes Past [id number]-Zlscxy Hx Patient Social History Marrital Status: single Employed/Student: employed Alcohol Use: Denies Use Recreational Drug Use: No Smoking Status: Never a Smoker Recent Foreign Travel: No Contact w/other who traveled: No Recent Hopitalizations: No Recent Infectious Disease Expo: No Immunizations Up To Date Tetanus Booster (TDap): Unknown Date of Pneumonia Vaccine: Sep 18, 2009 Seasonal Allergies Seasonal Allergies: Yes Surgeries Yes (HIATAL HERNIA REPAIR, incisional hernia) Abdominal, Gallbladder, Hysterectomy Respiratory Yes Currently Using CPAP: No Currently Using BIPAP: No Cardiovascular Yes (RECENT HIGH BLOOD PRESSURE SINCE THE SURGERY. ) Neurological Yes 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 System Hx 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 Disorders: No Sexually Transmitted Disease: No HIV/AIDS: No Female 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 Disorders: Denies CERTIFIED ORTHOTIST History: Hysterectomy Gastrointestinal Yes (epigastic pain) Gastroesophageal Reflux, Hiatal Hernia Musculoskeletal No Endocrine History of Endocrine Disorders: No HEENT Loss of Vision: Bilateral Hearing Impairment: Denies Cancer No Psychosocial History of Psychiatric Problem: No Integumentary History of Skin or Integumenta: No Blood Transfusions History of Blood Disorders: No Adverse Reaction to a Blood Tr: No Family Medical History Significant Family History: No Pertinent Family Hx Family Hx: Patient reports no known family medical history. Review of Systems Constitutional: weakness EENTM: no symptoms reported Respiratory: cough, short of breath Cardiovascular: no symptoms reported Gastrointestinal: dysphagia Genitourinary: no symptoms reported Musculoskeletal: no symptoms reported Skin: no symptoms reported Psychiatric/Neurological: No Symptoms Reported Physical Exam Vital Signs Vital Signs - First Documented 11/23/18 11/23/18 11/23/18 14:45 15:02 18:20 Temp 98.0 Pulse 123 Resp 18 B/P (MAP) 174/91 (118) Pulse Ox 81 O2 Delivery Room Air O2 Flow Rate 4.00 FiO2 100 Capillary Refill : Less Than 3 Seconds Height, Weight, BMI Height: 4'11.00" Weight: 116lbs. 0.0oz. [id number]; 24.2 BMI Method:Stated General Appearance: Moderate Distress Neck: Normal Inspection Respiratory: Decreased Breath Sounds Cardiovascular: Regular Rate, Rhythm Gastrointestinal: Non Tender, Soft Extremity: Normal Inspection Neurologic/Psychiatric: Alert, Oriented x3 Skin: Warm/Dry Comments subcutaneous emphysema involving the thoracic cavity. Evidence of recent robotic surgery without any wound infection. Assessment/Plan Assessment and Plan lady with dysphagia and left pneumothorax following repair of recurrent paraesophageal hernia using minimally invasive technique. Tube thoracostomy to address pneumothorax would be reasonable. Possibility of esophageal perforation to be considered, but appears to be less likely. Admission Diagnosis Admission Status: Inpatient Order (span 2 midnights) Reason for Inpatient Admission: management expected to last longer than 2 days. CICI SEVILLA MD Nov 23, 2018 19:00
--- NOTE | 2018-11-23 19:00 | NUR ---
REPORT AND CARE TURNED OVER TO Radha BURGOS.
--- NOTE | 2018-11-23 19:04 | Operative Report ---
Operative Report Date of Procedure/Surgery Nov 23, 2018 Surgeon (s) CICI SEVILLA MD Magnetic Prospecting Supervisor (s): N/A Post-Operative Diagnosis left pneumothorax Procedure Performed left tube thoracostomy Description of Procedure Anesthesia Type: Conscious Sedation Estimated blood loss (mL): minimal Specimen(s) collected/removed none Description of the Procedure Indication for the procedure: This lady presented with a symptomatic left pneumothorax, 8 days following repair of recurrent paraesophageal hernia using minimally invasive technique with robotic assistance at [place]. It was felt reasonable to place a chest tube to address pneumothorax. Informed consent was obtained after reviewing the procedure in detail. Description of the procedure: She was monitored in the emergency room and conscious sedation achieved using Versed and fentanyl by the ER physician. Left chest wall was prepared and draped in the usual sterile manner. Local anesthesia was achieved using 1 percent lidocaine. A 2 cm incision was made over the left fifth intercostal space, along the midaxillary line and a 28 Wolof chest tube tunneled over the fourth intercostal space, directed into the pleural cavity by digital exploration. Care was taken to avoid injuring the lung parenchyma. Prompt return of air was encountered and the tube connected to an underwater seal system. The tube was then secured using 0 Prolene sutures and a dressing applied. She tolerated the procedure reasonably well. Findings of the Procedure see operative report Allergies and Home Medications Allergies Coded Allergies: codeine (Unverified Adverse Reaction, Unknown, 09/03/18) severe stomach pain Home Medications Budesonide/Formoterol Fumarate 10.2 Gm Hfa.aer.ad, 2 PUFF IH BID, (Reported) Celecoxib 100 Mg Capsule, 100 MG PO BID, (Reported) Gabapentin 100 Mg Capsule, 100 MG PO BID, (Reported) Gabapentin 300 Mg Capsule, 300 MG PO BID, (Reported) Hydrocodone/Acetaminophen 1 Each Tablet, 1 EACH PO Q4-6HR PRN for PAIN-MODERATE Prescribed by: BRAYDON LYLES on 09/04/1831 Ondansetron 4 Mg Tab.rapdis, 4 MG SL Q4H PRN for NAUSEA/VOMITING Prescribed by: BRAYDON LYLES on 09/04/1831 Sucralfate 1 Gm/10 Ml Oral.susp, 1 GM PO QID 30 minutes before meals and bedtime. Prescribed by: BRAYDON LYLES on 09/04/1831 Patient Home Medication List Home Medication List Reviewed: Yes CICI SEVILLA MD Nov 23, 2018 19:04
[2018-11-23] MEDS ORDERED: ONDANSETRON 4 MG/2 ML (SDV) Z0FRAN IVP PRN (19:15)
[2018-11-23] MEDS ORDERED: CATHETER FLUSH 10 ML SYR IV PRN (19:30)
--- NOTE | 2018-11-23 19:39 | Diagnostic Imaging Report ---
EXAMINATION: Portable Semi-erect AP chest at 6:54 p.m. INDICATION: Chest tube placement. FINDINGS: In the interval since the exam performed earlier today at 3:31 p.m., a left-sided chest tube has been inserted. The tube seems to be in good position. There is no clear evidence for pneumothorax on the left. There has been an increase in the atelectasis/infiltrate and fluid involving the left lung base since the prior exam. The right lung remains relatively clear. The CTA chest exam did show that there was a right pleural effusion, however. The heart is stable in size. The mediastinum is not widened. The osseous structures are intact. The extensive subcutaneous emphysema seen previously is again evident and not significantly changed. There is excretion of the contrast used for the CTA chest exam by both kidneys. IMPRESSION: 1. There has been insertion of the left-sided chest tube. The tube seems to be in good position. There is no pneumothorax identified. 2. The appearance of the chest has worsened since the prior study, however, as there is greater involvement of the left lung base by atelectasis/pneumonia and fluid. 3. There is still extensive subcutaneous emphysema. 4. A followup exam would be recommended for continued study. Dictated by: Dictated on workstation # [id number]
[2018-11-23] MEDS: fentaNYL INJECTION 100 MCG/2 ML AMP IVP PRN ×4 (20:12→23:24)
[2018-11-23] MEDS: PANTOPRAZOLE 40 MG (PROTONIX) VIAL IV SCH (21:11)
[2018-11-23] MEDS: CATHETER FLUSH 10 ML SYR IV SCH (21:51)
[2018-11-23] MEDS: PIPERACILLIN/TAZOBACTAM (BULK) 4.5 GM in NS (IVPB) 100 ML IV SCH (22:21)
[2018-11-24] VITALS (23 sets, daily range): BP systolic 111–173; BP diastolic 75–102
[2018-11-24] MEDS: fentaNYL INJECTION 100 MCG/2 ML AMP IVP PRN (00:28)
[2018-11-24] MEDS ORDERED: KETOROLAC 30 MG/ML VIAL ONE (01:38)
[2018-11-24] MEDS ORDERED: HYDROmorphone 2 MG/ML VIAL (DILAUDID) ONE (01:38)
[2018-11-24] MEDS ORDERED: HYDROmorphone 2 MG/ML VIAL (DILAUDID) IV ONE (02:15)
[2018-11-24] MEDS ORDERED: KETOROLAC 30 MG/ML VIAL IV ONE (02:15)
[2018-11-24 03:37] LABS: BASOPHILS % (AUTO) 0 % (0-10); EOSINOPHILS # (AUTO) 0.5 10^3/uL (0.0-0.3); EOSINOPHILS % (AUTO) 4 % (0-10); HEMATOCRIT 35 % (35-52); HEMOGLOBIN 11.4 G/DL (11.5-16.0); LYMPHOCYTES # (AUTO) 1.2 X 10^3 (1.0-4.0); LYMPHOCYTES % (AUTO) 10 % (12-44); MEAN CORPUSCULAR HEMOGLOBIN 30 PG (25-34); MEAN CORPUSCULAR HGB CONC 33 G/DL (32-36); MEAN CORPUSCULAR VOLUME 92 FL (80-99); MEAN PLATELET VOLUME 8.3 FL (7.4-10.4); MONOCYTES # (AUTO) 0.5 X 10^3 (0.0-1.0); MONOCYTES % (AUTO) 4 % (0-12); NEUTROPHILS # (AUTO) 9.9 X 10^3 (1.8-7.8); NEUTROPHILS % (AUTO) 82 % (42-75); PLATELET COUNT 290 10^3/uL (130-400); RED CELL DISTRIBUTION WIDTH 13.6 % (10.0-14.5); WHITE BLOOD COUNT 12.1 10^3/uL (4.3-11.0)
[2018-11-24 03:59] LABS: BUN/CREATININE RATIO 21; CALCIUM 8.2 MG/DL (8.5-10.1); CARBON DIOXIDE 19 MMOL/L (21-32); CHLORIDE 112 MMOL/L (98-107); CREATININE SERUM 0.52 MG/DL (0.60-1.30); GFR ESTIMATED > 60; GLUCOSE 77 MG/DL (70-105); MAGNESIUM 1.6 MG/DL (1.8-2.4); PHOSPHORUS 3.3 MG/DL (2.3-4.7); POTASSIUM 3.3 MMOL/L (3.6-5.0); SODIUM 143 MMOL/L (135-145)
[2018-11-24] MEDS: POTASSIUM CL 10MEQ/50ML IVPB 50 ML IV SCH ×5 (05:00→07:28)
[2018-11-24] MEDS: MAGNESIUM 1 GM/100 ML IVPB 100 ML IV SCH ×3 (05:02→05:56)
[2018-11-24] MEDS: KCL 20 MEQ TAB (K-DUR) PO SCH (05:02)
[2018-11-24] MEDS: fentaNYL INJECTION 100 MCG/2 ML AMP IV PRN ×10 (06:03→23:46)
[2018-11-24] MEDS: PIPERACILLIN/TAZOBACTAM (BULK) 4.5 GM in NS (IVPB) 100 ML IV SCH ×3 (06:03→23:47)
[2018-11-24] MEDS: CATHETER FLUSH 10 ML SYR IV SCH ×3 (06:03→23:48)
--- NOTE | 2018-11-24 07:59 | Diagnostic Imaging Report ---
INDICATION: Dyspnea. TIME OF EXAM: 3:50 AM Correlation is made with prior study from one day earlier. FINDINGS: Left chest tube remains in place. No pneumothorax is seen. There continues to be some consolidation and pleural fluid in the left base. Subcutaneous emphysema along the left chest wall as well as the soft tissues of the supraclavicular neck persists. Right lung appears fairly clear. IMPRESSION: Overall stable appearance of chest when compared with 11/23/2018. Continued consolidation and pleural fluid in left base as well as subcutaneous emphysema. No pneumothorax is identified. Dictated by: Dictated on workstation # [id number]
[2018-11-24] MEDS: PANTOPRAZOLE 40 MG (PROTONIX) VIAL IV SCH ×2 (08:23→23:46)
--- NOTE | 2018-11-24 09:30 | Progress Note (SOAP) ---
Subjective Date Seen by a Provider: Nov 24, 2018 Time Seen by a Provider: 08:20 Subjective/Events-last exam reports pain along the left chest wall. Dysphagia slightly improved. No air leak on chest tube. Output about 300 mL, serosanguineous fluid. Review of Systems General: No Chills, No Night Sweats, No Fatigue, No Malaise HEENT: No Head Aches, No Eye Pain, No Ear Pain, No Dysphasia, No Sinus Congestion, No Post Nasal Drip, No Sore Throat Pulmonary: Dyspnea, Cough, Pleuritic Chest Pain Cardiovascular: No: Chest Pain, Palpitations, Orthopnea, Paroxysmal Noc. Dyspnea, Edema, Lt Headedness Gastrointestinal: No: Nausea, Vomiting, Abdominal Pain, Diarrhea, Constipation , Melena, Hematochezia Genitourinary: No Dysuria, No Frequency, No Incontinence, No Hematuria, No Retention Musculoskeletal: No: other, neck pain, shoulder pain, arm pain, back pain, hand pain, leg pain, foot pain Neurological: No: Weakness, Numbness, Incoordination, Change in speech, Confusion, Seizures, Other Focused Exam Lactate Level 11/23/18 14:57: Lactic Acid Level 1.03 Objective Exam Vital Signs Date Time Temp Pulse Resp B/P (MAP) Pulse Ox O2 Delivery O2 Flow Rate FiO2 11/24/18 08:34 Nasal Cannula 4.00 11/24/18 08:22 97.5 11/24/18 07:16 78 11/24/18 07:01 95 Nasal Cannula 4.00 11/24/18 06:00 83 14 125/78 (94) 94 Nasal Cannula 4.00 11/24/18 05:00 86 12 126/85 (99) 92 Nasal Cannula 4.00 11/24/18 04:00 88 13 111/76 (88) 92 Nasal Cannula 4.00 11/24/18 04:00 Nasal Cannula 4.00 11/24/18 04:00 97.6 11/24/18 03:00 89 12 121/75 (90) 94 Nasal Cannula 4.00 11/24/18 02:00 89 14 129/75 (93) 94 Nasal Cannula 4.00 11/24/18 01:54 94 4.00 11/24/18 01:00 90 11/24/18 01:00 89 19 150/85 (106) 93 Nasal Cannula 4.00 11/24/18 00:00 99.2 11/24/18 00:00 84 15 139/82 (101) 95 Nasal Cannula 4.00 11/24/18 00:00 Nasal Cannula 4.00 11/23/18 23:00 86 17 136/85 (102) 96 Nasal Cannula 4.00 11/23/18 22:00 84 17 144/88 (106) 97 Nasal Cannula 4.00 11/23/18 21:30 90 14 137/85 (102) 97 Nasal Cannula 4.00 11/23/18 21:00 88 18 154/90 (111) 97 Nasal Cannula 4.00 11/23/18 20:30 95 20 155/93 (113) 95 Nasal Cannula 4.00 11/23/18 20:15 92 19 149/93 (111) 96 Nasal Cannula 4.00 11/23/18 20:00 90 16 153/93 (113) 91 Nasal Cannula 4.00 11/23/18 19:54 92 11/23/18 19:50 Nasal Cannula 4.00 11/23/18 19:47 98.6 93 16 153/93 (113) 91 Nasal Cannula 4.00 11/23/18 19:30 98.0 89 16 155/86 (109) 97 Nasal Cannula 4.00 11/23/18 18:29 112 16 123/78 98 OxyMask 100 103 11/23/18 18:24 107 16 141/92 97 Room Air 100 11/23/18 18:20 81 16 132/88 96 OxyMask 100 11/23/18 18:17 OxyMask 11/23/18 15:08 93 Nasal Cannula 3.00 11/23/18 15:02 Nasal Cannula 4.00 11/23/18 14:45 98.0 123 18 174/91 (118) 81 Room Air I & O 11/24/18 07:00 Intake Total 1270 ml Output Total 675 ml Balance 595 ml Capillary Refill : Less Than 3 Seconds General Appearance: No Apparent Distress Respiratory: Crackles, Decreased Breath Sounds Cardiovascular: Regular Rate, Rhythm Gastrointestinal: non tender, soft Extremity: No Calf Tenderness Neurologic/Psychiatric: Alert, Oriented x3 Skin: Warm/Dry Results Lab Laboratory Tests 11/23/18 14:57: White Blood Count 11.7H, Red Blood Count 4.76, Hemoglobin 13.8, Hematocrit 43, Mean Corpuscular Volume 90, Mean Corpuscular Hemoglobin 29, Mean Corpuscular Hemoglobin Concent 32, Red Cell Distribution Width 13.4, Platelet Count 299, Mean Platelet Volume 8.5, Neutrophils (%) (Auto) 78H, Lymphocytes (%) (Auto) 15 , Monocytes (%) (Auto) 4, Eosinophils (%) (Auto) 2, Basophils (%) (Auto) 1, Neutrophils # (Auto) 9.2H, Lymphocytes # (Auto) 1.8, Monocytes # (Auto) 0.5, Eosinophils # (Auto) 0.3, Basophils # (Auto) 0.1, Neutrophils % (Manual) 83, Lymphocytes % (Manual) 12, Monocytes % (Manual) 4, Eosinophils % (Manual) 1, Basophils % (Manual) 0, Band Neutrophils 0, Blood Morphology Comment NORMAL, Prothrombin Time 13.7, INR Comment 1.1, Activated Partial Thromboplast Time 32, Sodium Level 141, Potassium Level 3.9, Chloride Level 103, Carbon Dioxide Level 22, Anion Gap 16H, Blood Urea Nitrogen 13, Creatinine 0.60, Estimat Glomerular Filtration Rate > 60, BUN/Creatinine Ratio 22, Glucose Level 93, Lactic Acid Level 1.03, Calcium Level 9.4, Corrected Calcium 9.6, Total Bilirubin 0.6, Aspartate Amino Transf (AST/SGOT) 37H, Alanine Aminotransferase (ALT/SGPT) 59H, Alkaline Phosphatase 90, Troponin I < 0.028, B-Type Natriuretic Peptide 18.0, Total Protein 7.7, Albumin 3.8 11/23/18 18:00: Urine Color YELLOW, Urine Clarity CLEAR, Urine pH 5, Urine Specific [place] 1.015L, Urine Protein 2+H, Urine Glucose (UA) NEGATIVE, Urine Ketones 4+H, Urine Nitrite NEGATIVE, Urine Bilirubin NEGATIVE, Urine Urobilinogen NORMAL, Urine Leukocyte Esterase 1+H, Urine RBC (Auto) NEGATIVE, Urine RBC NONE, Urine WBC 0-2, Urine Squamous Epithelial Cells 5-10, Urine Crystals NONE, Urine Bacteria NEGATIVE, Urine Casts NONE, Urine Mucus NEGATIVE, Urine Culture Indicated NO 11/24/18 03:28: White Blood Count 12.1H, Red Blood Count 3.80L, Hemoglobin 11.4L, Hematocrit 35 , Mean Corpuscular Volume 92, Mean Corpuscular Hemoglobin 30, Mean Corpuscular Hemoglobin Concent 33, Red Cell Distribution Width 13.6, Platelet Count 290, Mean Platelet Volume 8.3, Neutrophils (%) (Auto) 82H, Lymphocytes (%) (Auto) 10L , Monocytes (%) (Auto) 4, Eosinophils (%) (Auto) 4, Basophils (%) (Auto) 0, Neutrophils # (Auto) 9.9H, Lymphocytes # (Auto) 1.2, Monocytes # (Auto) 0.5, Eosinophils # (Auto) 0.5H, Basophils # (Auto) 0.0, Sodium Level 143, Potassium Level 3.3L, Chloride Level 112H, Carbon Dioxide Level 19L, Anion Gap 12, Blood Urea Nitrogen 11, Creatinine 0.52L, Estimat Glomerular Filtration Rate > 60, BUN /Creatinine Ratio 21, Glucose Level 77, Calcium Level 8.2L, Phosphorus Level 3.3 , Magnesium Level 1.6L Microbiology 11/23/18 Influenza Types A,B Antigen (LEONEL) - Final, Complete Assessment/Plan Assessment/Plan Assess & Plan/Chief Complaint lady with left pneumothorax, 10 days after repair of recurrent paraesophageal hernia. Dysphagia, improving. No air leak from pneumothorax. Chest x-ray negative for persistent pneumothorax. Most likely chest tube would be removed tomorrow. We will institute DVT prophylaxis and try to get out of bed Final Diagnosis left pneumothorax. Dysphagia, improving Clinical Quality Measures Admission Status Admission Dx lady with dysphagia and left pneumothorax following repair of recurrent paraesophageal hernia using minimally invasive technique. Tube thoracostomy to address pneumothorax would be reasonable. Possibility of esophageal perforation to be considered, but appears to be less likely. DVT/VTE Risk/Contraindication: Risk Factor Score Per Nursin RFS Level Per Nursing on Admit: 3=High CICI SEVILLA MD Nov 24, 2018 09:30
--- NOTE | 2018-11-24 10:00 | NUR ---
PT UP TO CHAIR
[2018-11-24] MEDS: ENOXAPARIN 40 MG/0.4 ML (LOVENOX) SYR SC SCH (10:01)
--- NOTE | 2018-11-24 12:00 | NUR ---
PT BACK TO BED.
[2018-11-24] MEDS ORDERED: D5 1/2 NS W/KCL 20 MEQ/L 1,000 ML IV ONE (15:42)
[2018-11-24] MEDS: D5 1/2 NS W/KCL 20 MEQ/L 1,000 ML IV SCH (15:45)
[2018-11-24] MEDS ORDERED: HYDROcodone/APAP 7.5MG-325 MG/15 ML (LORTAB) UDC PO PRN (19:30)
--- NOTE | 2018-11-24 20:42 | NUR ---
This RN contacted Dr. Milner regarding patient's 02 desaturation despite high flow oxygenation. See order history for new orders received.
[2018-11-24] MEDS ORDERED: FUROSEMIDE 40 MG/4 ML INJ (LASIX) IVP ONE ×2 (20:45)
--- NOTE | 2018-11-24 21:39 | Diagnostic Imaging Report ---
EXAMINATION: Portable erect AP chest at 9:18 PM INDICATION: Dyspnea In the interval since the exam performed earlier today at 3:50 AM a small apical pneumothorax has developed on the left. The distance from the bony thorax along edge is 1.4 CM. The left-sided chest tube remains in place. There is still opacification of the left midlung and left lung base by atelectasis/infiltrate and fluid. The right lung remains generally clear. The heart is obscured but seems stable. The mediastinum is not widened. The osseous structures are intact. The subcutaneous emphysema seen previously has diminished. IMPRESSION: 1. A small apical pneumothorax has developed on the left in the interval since the prior exam. The overall appearance of the chest has not changed significantly otherwise. A followup study would be recommended for continued evaluation. 2. These results were called to Dr. Stark at the time of this dictation. Critical finding Dictated by: Dictated on workstation # [id number]
--- NOTE | 2018-11-24 21:40 | NUR ---
This RN called EICU regarding patient's 02 desaturation despite multiple interventions. See order history for new orders received.
[2018-11-25] VITALS (23 sets, daily range): BP systolic 111–141; BP diastolic 68–103
[2018-11-25 00:36] LABS: ABG BASE EXCESS 0.6 MMOL/L (-2.5-2.5); ABG OXYGEN SATURATION 96 % (94-100); ABG PCO2 44 MMHG (35-45); ABG PH 7.38 (7.37-7.43); ABG PO2 79 MMHG (79-93); ABG TCO2 26.5 MMOL/L (21.0-31.0); ALLENS TEST YES-POS; INSPIRED O2 15L; PATIENT TEMP 98.8; VENTILATOR NO
[2018-11-25] MEDS: fentaNYL INJECTION 100 MCG/2 ML AMP IV PRN (00:57)
[2018-11-25] MEDS ORDERED: KETOROLAC 15 MG/ML VIAL ONE (01:40)
[2018-11-25] MEDS ORDERED: RT-ALBUTEROL/IPRATROPIUM 3 ML (DUONEB) VIAL ONE (01:49)
[2018-11-25] MEDS ORDERED: NS IV 1000 ML 1,000 ML IV SCH (03:12)
[2018-11-25] MEDS ORDERED: HYDROmorphone 20 MG/NS 100 ML PCA IV PRN ×2 (03:15)
[2018-11-25] MEDS ORDERED: NALOXONE 0.4 MG/ML 1 ML (NARCAN) VIAL IV PRN (03:15)
[2018-11-25] MEDS ORDERED: METOCLOPRAMIDE INJ 10 MG/2 ML (REGLAN) IV PRN (03:15)
[2018-11-25] MEDS ORDERED: KETOROLAC 15 MG/ML VIAL IVP ONE (03:15)
[2018-11-25] MEDS ORDERED: HYDROmorphone PF INJECTION 10 MG in NS (IVPB) 50 ML IV SCH (03:15)
[2018-11-25] MEDS ORDERED: diphenhydrAMINE 50 MG/ML INJ (BENADRYL) IV PRN (03:15)
[2018-11-25] MEDS ORDERED: ONDANSETRON 4 MG/2 ML (SDV) Z0FRAN IV PRN (03:15)
[2018-11-25] MEDS ORDERED: morphine PCA 100 MG/100 ML BAG IV PRN (03:30)
[2018-11-25 04:00] LABS: BASOPHILS % (AUTO) 0 % (0-10); EOSINOPHILS # (AUTO) 0.4 10^3/uL (0.0-0.3); EOSINOPHILS % (AUTO) 3 % (0-10); HEMATOCRIT 38 % (35-52); HEMOGLOBIN 12.3 G/DL (11.5-16.0); LYMPHOCYTES # (AUTO) 1.2 X 10^3 (1.0-4.0); LYMPHOCYTES % (AUTO) 11 % (12-44); MEAN CORPUSCULAR HEMOGLOBIN 29 PG (25-34); MEAN CORPUSCULAR HGB CONC 32 G/DL (32-36); MEAN CORPUSCULAR VOLUME 91 FL (80-99); MONOCYTES # (AUTO) 0.5 X 10^3 (0.0-1.0); MONOCYTES % (AUTO) 4 % (0-12); NEUTROPHILS # (AUTO) 9.4 X 10^3 (1.8-7.8); NEUTROPHILS % (AUTO) 82 % (42-75); PLATELET COUNT 322 10^3/uL (130-400); RED CELL DISTRIBUTION WIDTH 13.1 % (10.0-14.5); WHITE BLOOD COUNT 11.5 10^3/uL (4.3-11.0)
[2018-11-25 04:22] LABS: BUN/CREATININE RATIO 17; CALCIUM 8.3 MG/DL (8.5-10.1); CARBON DIOXIDE 20 MMOL/L (21-32); CHLORIDE 106 MMOL/L (98-107); CREATININE SERUM 0.54 MG/DL (0.60-1.30); GFR ESTIMATED > 60; GLUCOSE 108 MG/DL (70-105); MAGNESIUM 1.5 MG/DL (1.8-2.4); PHOSPHORUS 2.9 MG/DL (2.3-4.7); POTASSIUM 3.3 MMOL/L (3.6-5.0); SODIUM 143 MMOL/L (135-145)
[2018-11-25] MEDS: D5 1/2 NS W/KCL 20 MEQ/L 1,000 ML IV SCH ×4 (04:31→20:32)
[2018-11-25] MEDS: MAGNESIUM 1 GM/100 ML IVPB 100 ML IV SCH ×4 (04:57→14:15)
[2018-11-25] MEDS: POTASSIUM CL 10MEQ/50ML IVPB 50 ML IV SCH ×9 (05:00→17:44)
[2018-11-25] MEDS: KCL 20 MEQ TAB (K-DUR) PO SCH (05:49)
[2018-11-25] MEDS: CATHETER FLUSH 10 ML SYR IV SCH ×3 (06:12→22:00)
--- NOTE | 2018-11-25 07:39 | Diagnostic Imaging Report ---
PROCEDURE: CT chest with contrast only. TECHNIQUE: Multiple contiguous axial images were obtained through the chest after administration of intravenous contrast. INDICATION: Dyspnea. COMPARISON is made with prior exam from 11/23/2018. FINDINGS: There is increasing consolidation in the left lower lobe which is hypoenhancing. There has been interval placement of a large bore chest tube into the left lung apex. There is a small residual left apical pneumothorax as well as trace right pneumothorax. There is a small effusion on the right. There is atelectasis in the left upper lobe and lingula. There is scarring in both upper lobes. Heart size is normal. There is no pericardial fluid. There is extensive subcutaneous emphysema about the chest, neck and mediastinum. There is decreased pneumoperitoneum when compared to the prior examination. Thoracic aorta is normal in caliber without evidence of dissection. There are calcified mediastinal nodes. 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 There is marked mucosal thickening at the gastroesophageal junction as well as within the gastric fundus with some surrounding free fluid. This is presumably related to recent surgery. The osseous structures are grossly unremarkable apart from mild degenerative change. IMPRESSION: Interval placement of a large bore chest tube into the left lung apex with small residual bilateral pneumothoraces. There is also a small effusion on the right. Increasing consolidation in the left lower lobe. Marked mucosal thickening about the gastroesophageal junction and fundus with some surrounding free fluid. This presumably related to recent surgery. Unchanged splenic infarct. Extensive subcutaneous emphysema with decreasing pneumoperitoneum. Dictated by: Dictated on workstation # [id number]
[2018-11-25] MEDS: PANTOPRAZOLE 40 MG (PROTONIX) VIAL IV SCH ×2 (08:04→20:31)
[2018-11-25] MEDS: PIPERACILLIN/TAZOBACTAM (BULK) 4.5 GM in NS (IVPB) 100 ML IV SCH ×3 (08:05→23:51)
[2018-11-25] MEDS: SENNA W/DOCUSATE (SENOKOT S) TABLET PO SCH (08:10)
--- NOTE | 2018-11-25 09:14 | Diagnostic Imaging Report ---
Indication: Dyspnea, followup pneumothorax. Comparison: 11/24/2018. Discussion: Single portable upright view of the chest was obtained. Left chest tube is stable in position. Small left apical pneumothorax is likely stable given differences in positioning. Left chest wall subcutaneous emphysema with a small amount of gas along the base of the right neck is stable. Volume loss is again noted within the left chest with midline shift to the left. Mild cardiomegaly is stable. The right lung remains well-aerated. No acute osseous abnormality. Impression: 1. Stable chest. Dictated by: Dictated on workstation # [id number]
[2018-11-25] MEDS: ENOXAPARIN 40 MG/0.4 ML (LOVENOX) SYR SC SCH (09:23)
[2018-11-25] MEDS: RT-ALBUTEROL SULF 2.5 MG/3 ML PRE-MIX VIAL INH SCH ×3 (09:57→20:49)
[2018-11-25] MEDS ORDERED: TPN IV SCH (10:00)
[2018-11-25] MEDS ORDERED: LACTATED RINGERS 1,000 ML IV ONE (11:15)
--- NOTE | 2018-11-25 11:29 | Progress Note (SOAP) ---
Subjective Date Seen by a Provider: Nov 25, 2018 Time Seen by a Provider: 10:55 Subjective/Events-last exam left chest wall pain improved. Poor oxygenation with the requirement for over 15 L of oxygen. Decreased saturation last night leading to further evaluation with a CT scan, showing a very small left apical pneumothorax and consolidation of the left upper lobe, possibly due to a combination of atelectasis and pneumonia. Review of Systems General: Malaise HEENT: No Head Aches, No Eye Pain, No Ear Pain, No Dysphasia, No Sinus Congestion, No Post Nasal Drip, No Sore Throat Pulmonary: Dyspnea, Cough, Pleuritic Chest Pain Cardiovascular: No: Chest Pain, Palpitations, Orthopnea, Paroxysmal Noc. Dyspnea, Edema, Lt Headedness Gastrointestinal: No: Nausea, Vomiting, Abdominal Pain, Diarrhea, Constipation , Melena, Hematochezia Genitourinary: No Dysuria, No Frequency, No Incontinence, No Hematuria, No Retention Musculoskeletal: other Neurological: No: Weakness, Numbness, Incoordination, Change in speech, Confusion, Seizures, Other Focused Exam Lactate Level 11/23/18 14:57: Lactic Acid Level 1.03 Objective Exam Vital Signs Date Time Temp Pulse Resp B/P (MAP) Pulse Ox O2 Delivery O2 Flow Rate FiO2 11/25/18 11:26 98.5 11/25/18 10:00 98 12 131/82 (98) 97 Non Rebreather 15.00 11/25/18 09:57 100 Non Rebreather 15.00 11/25/18 09:00 83 20 118/78 (91) 97 Non Rebreather 15.00 11/25/18 08:39 Non Rebreather 15.00 11/25/18 08:00 79 21 124/76 (92) 98 Non Rebreather 15.00 11/25/18 07:33 97.5 11/25/18 07:00 80 13 116/79 (91) 98 Non Rebreather 15.00 11/25/18 07:00 79 11/25/18 06:00 79 19 116/76 (89) 99 Non Rebreather 15.00 11/25/18 06:00 97.1 11/25/18 05:00 110 23 137/90 (106) 96 Non Rebreather 15.00 11/25/18 04:22 16 11/25/18 04:00 Non Rebreather 15.00 11/25/18 04:00 94 17 121/79 (93) 99 Non Rebreather 15.00 11/25/18 03:00 105 17 124/90 (101) 97 Non Rebreather 15.00 11/25/18 01:54 94 Non Rebreather 15.00 11/25/18 01:00 99 16 124/83 (97) 97 Non Rebreather 15.00 11/25/18 01:00 100 11/25/18 00:00 98.8 11/25/18 00:00 108 19 126/92 (103) 95 Non Rebreather 15.00 11/25/18 00:00 Non Rebreather 15.00 11/24/18 23:21 Non Rebreather 15.00 11/24/18 23:11 94 Non Rebreather 15.00 11/24/18 23:00 109 18 130/93 (105) 95 Nasal Cannula 4.00 11/24/18 22:00 110 18 145/93 (110) 95 Nasal Cannula 4.00 11/24/18 21:00 106 21 160/100 (120) 93 Nasal Cannula 4.00 11/24/18 20:50 88 High Flow N/C 12.00 11/24/18 20:00 Nasal Cannula 4.00 11/24/18 20:00 96 19 173/102 (125) 91 Nasal Cannula 4.00 11/24/18 19:00 81 11/24/18 19:00 82 16 167/90 (115) 95 Nasal Cannula 4.00 11/24/18 19:00 98.1 11/24/18 18:00 81 18 169/89 (115) 94 Nasal Cannula 4.00 11/24/18 17:00 79 18 153/90 (111) 96 Nasal Cannula 4.00 11/24/18 16:00 85 14 143/90 (107) 95 Nasal Cannula 4.00 11/24/18 15:49 99.2 11/24/18 15:02 Nasal Cannula 4.00 11/24/18 15:00 89 17 164/92 (116) 93 Nasal Cannula 4.00 11/24/18 14:00 82 12 148/91 (110) 94 Nasal Cannula 4.00 11/24/18 13:01 88 11/24/18 13:00 78 17 154/93 (113) 97 Nasal Cannula 4.00 11/24/18 12:00 92 18 145/92 (109) 94 Nasal Cannula 4.00 11/24/18 11:44 Nasal Cannula 4.00 11/24/18 11:39 99.4 I & O 11/25/18 07:00 Intake Total 960 ml Output Total 2510 ml Balance -1550 ml Capillary Refill : Less Than 3 Seconds General Appearance: No Apparent Distress, Mild Distress Neck: Normal Inspection Respiratory: Crackles, Decreased Breath Sounds Cardiovascular: Regular Rate, Rhythm Gastrointestinal: non tender, soft Extremity: Normal Inspection Neurologic/Psychiatric: Alert, Oriented x3 Skin: Warm/Dry Results Lab Laboratory Tests 11/25/18 00:30: Blood Gas Puncture Site RIGHT RADIAL, Blood Gas Patient Temperature 98.8, Arterial Blood pH 7.38, Arterial Blood Partial Pressure CO2 44, Arterial Blood Partial Pressure O2 79, Arterial Blood HCO3 25, Arterial Blood Total CO2 26.5, Arterial Blood Oxygen Saturation 96, Arterial Blood Base Excess 0.6, Uriel Test YES-POS, Blood Gas Ventilator Setting NO, Blood Gas Inspired Oxygen 15L 11/25/18 03:30: White Blood Count 11.5H, Red Blood Count 4.22L, Hemoglobin 12.3, Hematocrit 38, Mean Corpuscular Volume 91, Mean Corpuscular Hemoglobin 29, Mean Corpuscular Hemoglobin Concent 32, Red Cell Distribution Width 13.1, Platelet Count 322, Mean Platelet Volume 9.0, Neutrophils (%) (Auto) 82H, Lymphocytes (%) (Auto) 11L , Monocytes (%) (Auto) 4, Eosinophils (%) (Auto) 3, Basophils (%) (Auto) 0, Neutrophils # (Auto) 9.4H, Lymphocytes # (Auto) 1.2, Monocytes # (Auto) 0.5, Eosinophils # (Auto) 0.4H, Basophils # (Auto) 0.0, Sodium Level 143, Potassium Level 3.3L, Chloride Level 106, Carbon Dioxide Level 20L, Anion Gap 17H, Blood Urea Nitrogen 9, Creatinine 0.54L, Estimat Glomerular Filtration Rate > 60, BUN/ Creatinine Ratio 17, Glucose Level 108H, Calcium Level 8.3L, Phosphorus Level 2.9, Magnesium Level 1.5L Microbiology 11/23/18 Blood Culture - Preliminary, Resulted No growth 11/23/18 Influenza Types A,B Antigen (LEONEL) - Final, Complete 11/23/18 Urine Culture - Final, Complete NO GROWTH Assessment/Plan Assessment/Plan Assess & Plan/Chief Complaint lady with left pneumothorax, 10 days after repair of recurrent paraesophageal hernia. Dysphagia, improving. No air leak from pneumothorax. Chest x-ray negative for persistent pneumothorax. Most likely chest tube would be removed tomorrow. We will institute DVT prophylaxis and try to get out of bed lady with consolidation and atelectasis of the left lung. Left apical pneumothorax. Reasonable to consider hygiene bronchoscopy to improve handling of secretions. Requested Dr. Rouse, the financial institution vice president to be involved.. PICC line will be placed tomorrow with an intention of infusing TPN Final Diagnosis left pneumothorax. Left upper lobe pneumonia. Consolidation with atelectasis of the left lung Clinical Quality Measures Admission Status Admission Dx lady with dysphagia and left pneumothorax following repair of recurrent paraesophageal hernia using minimally invasive technique. Tube thoracostomy to address pneumothorax would be reasonable. Possibility of esophageal perforation to be considered, but appears to be less likely. DVT/VTE Risk/Contraindication: Risk Factor Score Per Nursin RFS Level Per Nursing on Admit: 3=High CICI SEVILLA MD Nov 25, 2018 11:29
[2018-11-25] MEDS ORDERED: fentaNYL INJECTION 100 MCG/2 ML AMP ONE (11:39)
[2018-11-25] MEDS ORDERED: MIDAZOLAM 2 MG/2 ML (VERSED) VIAL ONE (11:39)
--- NOTE | 2018-11-25 12:58 | Pulmonary Consultation ---
History of Present Illness History of Present Illness Date of Consultation 11/25/18 12:53 Date of Admission Allergies and Home Medications Allergies Coded Allergies: codeine (Unverified Adverse Reaction, Unknown, 09/03/18) severe stomach pain Home Medications Budesonide/Formoterol Fumarate 10.2 Gm Hfa.aer.ad, 2 PUFF IH BID, (Reported) Celecoxib 100 Mg Capsule, 100 MG PO BID, (Reported) Gabapentin 100 Mg Capsule, 100 MG PO BID, (Reported) Gabapentin 300 Mg Capsule, 300 MG PO BID, (Reported) Hydrocodone/Acetaminophen 1 Each Tablet, 1 EACH PO Q4-6HR PRN for PAIN-MODERATE Prescribed by: BRAYDON LYLES on 09/04/1831 Ondansetron 4 Mg Tab.rapdis, 4 MG SL Q4H PRN for NAUSEA/VOMITING Prescribed by: BRAYDON LYLES on 09/04/1831 Sucralfate 1 Gm/10 Ml Oral.susp, 1 GM PO QID 30 minutes before meals and bedtime. Prescribed by: BRAYDON LYLES on 09/04/1831 Past Fyoczrh-Xxalau-Flnnve Hx Past Med/Social Hx: Reviewed Nursing Past Med/Soc Hx Patient Social History Alcohol Use: Denies Use Recreational Drug Use: No Smoking Status: Never a Smoker Recent Foreign Travel: No Contact w/Someone Who Travel: No Recent Infectious Disease Expo: No Recent Hopitalizations: No Immunizations Up To Date Tetanus Booster (TDap): Unknown Date of Pneumonia Vaccine: Sep 18, 2009 Date of Influenza Vaccine: Nov 15, 2018 Seasonal Allergies Seasonal Allergies: Yes Past Medical History Surgeries: Yes (HIATAL HERNIA REPAIR, incisional hernia) Abdominal, Gallbladder, Hysterectomy Respiratory: Yes Asthma Currently Using CPAP: No Currently Using BIPAP: No Cardiac: Yes (RECENT HIGH BLOOD PRESSURE SINCE THE SURGERY. 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 No Pertinent Family Hx Sepsis Event Evaluation Height, Weight, BMI Height: 4'.00" Weight: 105lbs. 9.0oz. 47.860728ga; 21.8 BMI Method:Stated Exam Exam Vital Signs Date Time Temp Pulse Resp B/P (MAP) Pulse Ox O2 Delivery O2 Flow Rate FiO2 11/25/18 12:00 75 13 112/68 (83) 100 Non Rebreather 15.00 11/25/18 11:26 Non Rebreather 15.00 11/25/18 11:26 98.5 11/25/18 11:00 89 16 130/75 (93) 100 Non Rebreather 15.00 11/25/18 10:00 98 12 131/82 (98) 97 Non Rebreather 15.00 11/25/18 09:57 100 Non Rebreather 15.00 11/25/18 09:00 83 20 118/78 (91) 97 Non Rebreather 15.00 11/25/18 08:39 Non Rebreather 15.00 11/25/18 08:00 79 21 124/76 (92) 98 Non Rebreather 15.00 11/25/18 07:33 97.5 11/25/18 07:00 80 13 116/79 (91) 98 Non Rebreather 15.00 11/25/18 07:00 79 11/25/18 06:00 79 19 116/76 (89) 99 Non Rebreather 15.00 11/25/18 06:00 97.1 11/25/18 05:00 110 23 137/90 (106) 96 Non Rebreather 15.00 11/25/18 04:22 16 11/25/18 04:00 Non Rebreather 15.00 11/25/18 04:00 94 17 121/79 (93) 99 Non Rebreather 15.00 11/25/18 03:00 105 17 124/90 (101) 97 Non Rebreather 15.00 11/25/18 01:54 94 Non Rebreather 15.00 11/25/18 01:00 99 16 124/83 (97) 97 Non Rebreather 15.00 11/25/18 01:00 100 11/25/18 00:00 98.8 11/25/18 00:00 108 19 126/92 (103) 95 Non Rebreather 15.00 11/25/18 00:00 Non Rebreather 15.00 11/24/18 23:21 Non Rebreather 15.00 11/24/18 23:11 94 Non Rebreather 15.00 11/24/18 23:00 109 18 130/93 (105) 95 Nasal Cannula 4.00 11/24/18 22:00 110 18 145/93 (110) 95 Nasal Cannula 4.00 11/24/18 21:00 106 21 160/100 (120) 93 Nasal Cannula 4.00 11/24/18 20:50 88 High Flow N/C 12.00 11/24/18 20:00 Nasal Cannula 4.00 11/24/18 20:00 96 19 173/102 (125) 91 Nasal Cannula 4.00 11/24/18 19:00 81 11/24/18 19:00 82 16 167/90 (115) 95 Nasal Cannula 4.00 11/24/18 19:00 98.1 11/24/18 18:00 81 18 169/89 (115) 94 Nasal Cannula 4.00 11/24/18 17:00 79 18 153/90 (111) 96 Nasal Cannula 4.00 11/24/18 16:00 85 14 143/90 (107) 95 Nasal Cannula 4.00 11/24/18 15:49 99.2 11/24/18 15:02 Nasal Cannula 4.00 11/24/18 15:00 89 17 164/92 (116) 93 Nasal Cannula 4.00 11/24/18 14:00 82 12 148/91 (110) 94 Nasal Cannula 4.00 11/24/18 13:01 88 11/24/18 13:00 78 17 154/93 (113) 97 Nasal Cannula 4.00 I & O 11/25/18 07:00 Intake Total 960 ml Output Total 2510 ml Balance -1550 ml Height & Weight Height: 4'11.00" Weight: 105lbs. 9.0oz. 47.697908hp; 21.8 BMI Method:Stated General Appearance: No Apparent Distress, Mild Distress Neck: Normal Inspection Respiratory: Crackles, Decreased Breath Sounds Cardiovascular: Regular Rate, Rhythm Capillary Refill: Less Than 3 Seconds Gastrointestinal: non tender, soft Extremity: Normal Inspection Neurologic/Psychiatric: Alert, Oriented x3 Skin: Warm/Dry Results Lab Laboratory Tests 11/23/18 14:57 11/24/18 03:28 11/25/18 03:30 Assessment/Plan Assessment/Plan Iatrogenic left PTX after hiatal hernia surgery s/p Chest tube placement L sided pneumonia -Dr. Milner consulted me to do bronchoscopy -I agree that bronchoscopy should be done -PT is agreeable -Continue ZOsyn -Await Domínguez cultures Dysphagia Hypokalemia, Hypophos -replace SAM COLLINS DO Nov 25, 2018 12:58
--- NOTE | 2018-11-25 13:35 | Pulmonary Procedures ---
Pulmonary Procedures Date of Procedure Date of Service: Nov 25, 2018 Bronch Bronchoscopy with bilateral washes to remove mucous plugs. Preop DX Pneumonia, mucous plugging Postop DX: same (mucous plugging LLL) Complications: none After informed consent obtained and formal time out pt was sedated using Fentanyl and Versed. Bronchoscope was advanced through the nare and vocal cords. 1% lidocaine was used to anesthetize vocal cords, epiglottis, vonnie, and left/right main stem bronchus. An anatomical tour was undertaken down to the segmental bronchi bilaterally. No endobronchial lesions noted. From the LLL transbronchial washes were obtained. Mucous plugging was noted LLL. Pt tolerated procedure well. No complications noted. Stat CXR is pending. SAM COLLINS DO Nov 25, 2018 13:35
--- NOTE | 2018-11-25 14:25 | Diagnostic Imaging Report ---
Indication: Dyspnea, followup bronchoscopy. Comparison: Earlier same date. Discussion: Single portable upright view of the chest was obtained. There is slightly improved aeration of the left lung though there is residual significant volume loss and opacities remaining. Stable heart size. The right lung is well-aerated. Small left pleural effusion is stable. No pneumothorax identified. No unexpected radiopaque foreign body. Left chest tube is stable. Impression: 1. Slightly improved aeration of the left lung with significant remaining opacities and volume loss. Dictated by: Dictated on workstation # [id number]
[2018-11-25] MEDS ORDERED: LIDOCAINE JELLY 2% 6 ML SYRINGE TOP ONE (14:29)
[2018-11-25] MEDS ORDERED: LIDOCAINE PF 2% 5 ML (XYLOCAINE) VIAL INJ ONE (14:29)
[2018-11-25] MEDS ORDERED: LIDOCAINE PF 1% 2 ML VIAL (OR ONLY) IJ ONE (14:29)
[2018-11-25] MEDS ORDERED: VITAMIN MULTI IV SCH ×10 (17:00)
[2018-11-25] MEDS ORDERED: [UNRECOGNIZED DRUG - OTHER] IV SCH ×10 (17:00)
[2018-11-25] MEDS ORDERED: 1/2 NS IV SOLUTION 1,000 ML IV SCH (17:00)
[2018-11-25] MEDS ORDERED: POTASSIUM PHOSPHATE IV SCH ×10 (17:00)
[2018-11-25] MEDS ORDERED: TRACE ELEMENTS IV SCH ×10 (17:00)
[2018-11-25 21:32] LABS: BILIRUBIN,URINE NEGATIVE (NEGATIVE); CLARITY,URINE CLEAR; COLOR,URINE YELLOW; GLUCOSE, URINE (UA) NEGATIVE (NEGATIVE); KETONES,URINE NEGATIVE (NEGATIVE); LEUKOCYTE ESTERASE ,URINE 1+ (NEGATIVE); NITRITE,URINE NEGATIVE (NEGATIVE); PH,URINE 5 (5-9); PROTEIN,URINE 1+ (NEGATIVE); UROBILINOGEN,URINE NORMAL (NORMAL)
[2018-11-25 21:41] LABS: BACTERIA,URINE TRACE /HPF; SQUAMOUS EPITHELIAL CELL,UR RARE /HPF; WBC,URINE 0-2 /HPF; YEAST,URINE FEW /HPF
--- NOTE | 2018-11-25 21:53 | NUR ---
This RN called EICU to notify of patient's pulse ranging in 120-130's.
[2018-11-26] VITALS (22 sets, daily range): BP systolic 96–148; BP diastolic 70–100
[2018-11-26] MEDS: RT-ALBUTEROL SULF 2.5 MG/3 ML PRE-MIX VIAL INH SCH ×5 (01:49→20:07)
[2018-11-26 03:42] LABS: BASOPHILS % (AUTO) 0 % (0-10); EOSINOPHILS # (AUTO) 0.3 10^3/uL (0.0-0.3); EOSINOPHILS % (AUTO) 2 % (0-10); HEMATOCRIT 37 % (35-52); HEMOGLOBIN 11.9 G/DL (11.5-16.0); LYMPHOCYTES # (AUTO) 0.8 X 10^3 (1.0-4.0); LYMPHOCYTES % (AUTO) 6 % (12-44); MEAN CORPUSCULAR HEMOGLOBIN 29 PG (25-34); MEAN CORPUSCULAR HGB CONC 32 G/DL (32-36); MEAN CORPUSCULAR VOLUME 91 FL (80-99); MEAN PLATELET VOLUME 8.7 FL (7.4-10.4); MONOCYTES # (AUTO) 0.3 X 10^3 (0.0-1.0); MONOCYTES % (AUTO) 3 % (0-12); NEUTROPHILS # (AUTO) 11.8 X 10^3 (1.8-7.8); NEUTROPHILS % (AUTO) 89 % (42-75); PLATELET COUNT 366 10^3/uL (130-400); RED CELL DISTRIBUTION WIDTH 13.2 % (10.0-14.5); WHITE BLOOD COUNT 13.3 10^3/uL (4.3-11.0)
[2018-11-26 04:02] LABS: BUN/CREATININE RATIO 9; CALCIUM 7.9 MG/DL (8.5-10.1); CARBON DIOXIDE 24 MMOL/L (21-32); CHLORIDE 106 MMOL/L (98-107); CREATININE SERUM 0.58 MG/DL (0.60-1.30); GFR ESTIMATED > 60; GLUCOSE 136 MG/DL (70-105); MAGNESIUM 1.9 MG/DL (1.8-2.4); PHOSPHORUS 1.8 MG/DL (2.3-4.7); POTASSIUM 4.8 MMOL/L (3.6-5.0); SODIUM 137 MMOL/L (135-145)
[2018-11-26] MEDS: POTASSIUM CL 10MEQ/50ML IVPB 50 ML IV SCH (04:39)
[2018-11-26] MEDS: MAGNESIUM 1 GM/100 ML IVPB 100 ML IV SCH (04:40)
[2018-11-26] MEDS: KCL 20 MEQ TAB (K-DUR) PO SCH (04:40)
[2018-11-26] MEDS ORDERED: RT-ALBUTEROL/IPRATROPIUM 3 ML (DUONEB) VIAL INH PRN (05:15)
[2018-11-26] MEDS ORDERED: SODIUM PHOSPHATE INJ 30 MM in NS (IVPB) 250 ML IV ONE (05:15)
--- NOTE | 2018-11-26 05:22 | Pulmonary Progress Note ---
Subjective Time Seen by a Provider: 05:30 Subjective/Events-last exam CXR appears improved s/p bronchoscopy. Sepsis Event Evaluation Height, Weight, BMI Height: 4'11.00" Weight: 105lbs. 9.0oz. 47.154418rd; 21.8 BMI Method:Stated Focused Exam Lactate Level 11/23/18 14:57: Lactic Acid Level 1.03 Exam Exam Vital Signs Date Time Temp Pulse Resp B/P (MAP) Pulse Ox O2 Delivery O2 Flow Rate FiO2 11/26/18 05:00 111 23 103/77 (86) 100 Non Rebreather 15.00 11/26/18 04:00 Non Rebreather 15.00 11/26/18 04:00 129 21 118/88 (98) 99 Non Rebreather 15.00 11/26/18 03:00 114 25 110/70 (83) 99 Non Rebreather 15.00 11/26/18 02:54 98.5 11/26/18 02:00 129 28 96/76 (83) 100 Non Rebreather 15.00 11/26/18 01:49 99 Non Rebreather 15.00 11/26/18 01:00 129 21 112/76 (88) 99 Non Rebreather 15.00 11/26/18 01:00 110 11/26/18 00:00 129 22 123/82 (96) 97 Non Rebreather 15.00 11/26/18 00:00 Non Rebreather 15.00 11/26/18 00:00 97.9 11/25/18 23:00 118 23 122/75 (91) 98 Non Rebreather 15.00 11/25/18 22:00 125 21 111/74 (86) 97 Non Rebreather 15.00 11/25/18 21:00 133 20 132/85 (101) 92 Non Rebreather 15.00 11/25/18 20:50 98 Non Rebreather 15.00 11/25/18 20:00 111 22 138/89 (105) 99 Non Rebreather 15.00 11/25/18 20:00 Non Rebreather 15.00 11/25/18 19:00 105 22 137/86 (103) 99 Non Rebreather 15.00 11/25/18 19:00 98.1 11/25/18 19:00 102 11/25/18 18:05 92 OxyMask 10.00 11/25/18 18:00 99 19 140/88 (105) 92 Non Rebreather 15.00 11/25/18 17:00 97 20 127/76 (93) 92 OxyMask 10.00 11/25/18 16:24 OxyMask 10.00 11/25/18 16:21 97.7 11/25/18 16:00 105 24 141/86 (104) 91 OxyMask 10.00 11/25/18 15:15 94 OxyMask 10.00 11/25/18 15:00 96 21 123/77 (92) 100 OxyMask 10.00 11/25/18 14:00 107 21 124/77 (93) 99 Non Rebreather 15.00 11/25/18 13:54 24 11/25/18 13:00 89 13 122/77 (92) 94 Non Rebreather 15.00 11/25/18 13:00 92 11/25/18 12:00 75 13 112/68 (83) 100 Non Rebreather 15.00 11/25/18 11:26 Non Rebreather 15.00 11/25/18 11:26 98.5 11/25/18 11:00 89 16 130/75 (93) 100 Non Rebreather 15.00 11/25/18 10:00 98 12 131/82 (98) 97 Non Rebreather 15.00 11/25/18 09:57 100 Non Rebreather 15.00 11/25/18 09:00 83 20 118/78 (91) 97 Non Rebreather 15.00 11/25/18 08:39 Non Rebreather 15.00 11/25/18 08:00 79 21 124/76 (92) 98 Non Rebreather 15.00 11/25/18 07:33 97.5 11/25/18 07:00 80 13 116/79 (91) 98 Non Rebreather 15.00 11/25/18 07:00 79 11/25/18 06:00 79 19 116/76 (89) 99 Non Rebreather 15.00 11/25/18 06:00 97.1 I & O 11/26/18 07:00 Intake Total 3310 ml Output Total 770 ml Balance 2540 ml Height & Weight Height: 4'11.00" Weight: 105lbs. 9.0oz. 47.989685fu; 21.8 BMI Method:Stated General Appearance: No Apparent Distress Neck: Normal Inspection Respiratory: Crackles, Decreased Breath Sounds Cardiovascular: Regular Rate, Rhythm Capillary Refill: Less Than 3 Seconds Gastrointestinal: non tender, soft Extremity: Normal Inspection Neurologic/Psychiatric: Alert, Oriented x3 Skin: Warm/Dry Lymphatic: No Adenopathy Results Lab Laboratory Tests 11/25/18 03:30 11/26/18 03:29 Assessment/Plan Assessment/Plan Iatrogenic left PTX after hiatal hernia surgery s/p Chest tube placement L sided pneumonia -PTX appears resolved and No air leak in chest tube currently - Dr. Milner is managing chest tube -await official CXR report -Decrease oxygen down -Continue zosyn -Await Domínguez cultures Atelectasis -S/P bronchoscopy -CXR looks improved -Easy PAP QID with Duoneb -IS Sinus tach with Decreased UO. - Na+ is trending down. K+ is trending up -Change IVF to LR at 100 and give a 1 liter bolus -IVF will probably be d/c'd once TPN is started today. -Continue daily labs Dysphagia -Plan is for PICC line today and start TPN - Hypophos -replace SAM COLLINS DO Nov 26, 2018 05:22
[2018-11-26] MEDS ORDERED: LACTATED RINGERS 1,000 ML IV ONE (05:30)
[2018-11-26] MEDS: LACTATED RINGERS 1,000 ML IV SCH ×4 (06:31→17:46)
[2018-11-26] MEDS: CATHETER FLUSH 10 ML SYR IV SCH ×2 (06:31→14:16)
--- NOTE | 2018-11-26 07:05 | NUR ---
In with Dr. Milner et Amber Juan, RN. Lt chest tube DC'd. Tip of trocanter visualized - intact et patent. Site covered with drsg by Dr. Milner. Pt denies SOB or CP. O2 sats remain stable at 95% (as per prior to procedure).
--- NOTE | 2018-11-26 07:47 | Diagnostic Imaging Report ---
INDICATION: Shortness of breath COMPARISON: 11/25/2018 FINDINGS: Single view chest demonstrates stable left-sided chest tube without appreciable pneumothorax. Opacities persist but decreased in the left mid and upper lung zone. The right lung is clear. There are persistent but decreasing effusion left lung base. Heart is prominent without pulmonary edema. IMPRESSION: 1. Stable left-sided chest tube without pneumothorax. 2. Improvement in aeration left hemithorax. Dictated by: Dictated on workstation # [id number]
[2018-11-26] MEDS: PANTOPRAZOLE 40 MG (PROTONIX) VIAL IV SCH ×2 (08:36→20:39)
[2018-11-26] MEDS: PIPERACILLIN/TAZOBACTAM (BULK) 4.5 GM in NS (IVPB) 100 ML IV SCH ×2 (08:37→16:14)
[2018-11-26] MEDS: ENOXAPARIN 40 MG/0.4 ML (LOVENOX) SYR SC SCH (08:38)
[2018-11-26] MEDS: SENNA W/DOCUSATE (SENOKOT S) TABLET PO SCH (08:38)
--- NOTE | 2018-11-26 08:53 | NUR ---
Initial visit to introduce self and offer compassionate presence. Pt taking breathing treatment, yet demonstrated welcoming spirit and engaged as able. Spiritual affiliation not known at this time.
--- NOTE | 2018-11-26 09:13 | Progress Note (SOAP) ---
Subjective Date Seen by a Provider: Nov 26, 2018 Time Seen by a Provider: 07:10 Subjective/Events-last exam hygiene bronchoscopy with removal of mucous plug from the left mainstem bronchus. Markert improvement of ventilation and oxygenation. Able to clear secretions much better. Minimal output from the chest tube. No residual pneumothorax and the chest tube could be removed Review of Systems General: No Chills, No Night Sweats, No Fatigue, No Malaise HEENT: No Head Aches, No Eye Pain, No Ear Pain, No Dysphasia, No Sinus Congestion, No Post Nasal Drip, No Sore Throat Pulmonary: Cough Cardiovascular: No: Chest Pain, Palpitations, Orthopnea, Paroxysmal Noc. Dyspnea, Edema, Lt Headedness Gastrointestinal: No: Nausea, Vomiting, Abdominal Pain, Diarrhea, Constipation , Melena, Hematochezia Genitourinary: No Dysuria, No Frequency, No Incontinence, No Hematuria, No Retention Musculoskeletal: other Neurological: No: Weakness, Numbness, Incoordination, Change in speech, Confusion, Seizures, Other Focused Exam Lactate Level 11/23/18 14:57: Lactic Acid Level 1.03 Objective Exam Vital Signs Date Time Temp Pulse Resp B/P (MAP) Pulse Ox O2 Delivery O2 Flow Rate FiO2 11/26/18 08:20 96 High Flow N/C 5.00 11/26/18 08:00 112 27 131/82 (98) 94 High Flow N/C 5.00 11/26/18 07:15 113 11/26/18 07:00 113 24 132/100 (111) 96 High Flow N/C 5.00 11/26/18 06:00 110 22 108/73 (85) 94 High Flow N/C 5.00 11/26/18 05:21 High Flow N/C 5.00 11/26/18 05:21 100 High Flow N/C 5.00 11/26/18 05:00 111 23 103/77 (86) 100 Non Rebreather 15.00 11/26/18 04:00 Non Rebreather 15.00 11/26/18 04:00 129 21 118/88 (98) 99 Non Rebreather 15.00 11/26/18 03:00 114 25 110/70 (83) 99 Non Rebreather 15.00 11/26/18 02:54 98.5 11/26/18 02:00 129 28 96/76 (83) 100 Non Rebreather 15.00 11/26/18 01:49 99 Non Rebreather 15.00 11/26/18 01:00 129 21 112/76 (88) 99 Non Rebreather 15.00 11/26/18 01:00 110 11/26/18 00:00 129 22 123/82 (96) 97 Non Rebreather 15.00 11/26/18 00:00 Non Rebreather 15.00 11/26/18 00:00 97.9 11/25/18 23:00 118 23 122/75 (91) 98 Non Rebreather 15.00 11/25/18 22:00 125 21 111/74 (86) 97 Non Rebreather 15.00 11/25/18 21:00 133 20 132/85 (101) 92 Non Rebreather 15.00 11/25/18 20:50 98 Non Rebreather 15.00 11/25/18 20:00 111 22 138/89 (105) 99 Non Rebreather 15.00 11/25/18 20:00 Non Rebreather 15.00 11/25/18 19:00 105 22 137/86 (103) 99 Non Rebreather 15.00 11/25/18 19:00 98.1 11/25/18 19:00 102 11/25/18 18:05 92 OxyMask 10.00 11/25/18 18:00 99 19 140/88 (105) 92 Non Rebreather 15.00 11/25/18 17:00 97 20 127/76 (93) 92 OxyMask 10.00 11/25/18 16:24 OxyMask 10.00 11/25/18 16:21 97.7 11/25/18 16:00 105 24 141/86 (104) 91 OxyMask 10.00 11/25/18 15:15 94 OxyMask 10.00 11/25/18 15:00 96 21 123/77 (92) 100 OxyMask 10.00 11/25/18 14:00 107 21 124/77 (93) 99 Non Rebreather 15.00 11/25/18 13:54 24 11/25/18 13:00 89 13 122/77 (92) 94 Non Rebreather 15.00 11/25/18 13:00 92 11/25/18 12:00 75 13 112/68 (83) 100 Non Rebreather 15.00 11/25/18 11:26 Non Rebreather 15.00 11/25/18 11:26 98.5 11/25/18 11:00 89 16 130/75 (93) 100 Non Rebreather 15.00 11/25/18 10:00 98 12 131/82 (98) 97 Non Rebreather 15.00 11/25/18 09:57 100 Non Rebreather 15.00 I & O 11/26/18 07:00 Intake Total 4310 ml Output Total 945 ml Balance 3365 ml Capillary Refill : Less Than 3 Seconds General Appearance: No Apparent Distress Neck: Normal Inspection Respiratory: Crackles Cardiovascular: Regular Rate, Rhythm Gastrointestinal: non tender, soft Extremity: Normal Inspection Neurologic/Psychiatric: Alert, Oriented x3 Skin: Warm/Dry Results Lab Laboratory Tests 11/25/18 14:00: B-Type Natriuretic Peptide 62.6 11/25/18 21:29: Urine Color YELLOW, Urine Clarity CLEAR, Urine pH 5, Urine Specific [place] 1.015L, Urine Protein 1+H, Urine Glucose (UA) NEGATIVE, Urine Ketones NEGATIVE, Urine Nitrite NEGATIVE, Urine Bilirubin NEGATIVE, Urine Urobilinogen NORMAL, Urine Leukocyte Esterase 1+H, Urine RBC (Auto) NEGATIVE, Urine RBC NONE, Urine WBC 0-2, Urine Squamous Epithelial Cells RARE, Urine Crystals NONE, Urine Bacteria TRACE, Urine Casts PRESENT, Urine Hyaline Casts 2-5H, Urine Mucus NEGATIVE, Urine Yeast FEWH, Urine Culture Indicated NO 11/26/18 03:29: White Blood Count 13.3H, Red Blood Count 4.05L, Hemoglobin 11.9, Hematocrit 37, Mean Corpuscular Volume 91, Mean Corpuscular Hemoglobin 29, Mean Corpuscular Hemoglobin Concent 32, Red Cell Distribution Width 13.2, Platelet Count 366, Mean Platelet Volume 8.7, Neutrophils (%) (Auto) 89H, Lymphocytes (%) (Auto) 6L , Monocytes (%) (Auto) 3, Eosinophils (%) (Auto) 2, Basophils (%) (Auto) 0, Neutrophils # (Auto) 11.8H, Lymphocytes # (Auto) 0.8L, Monocytes # (Auto) 0.3, Eosinophils # (Auto) 0.3, Basophils # (Auto) 0.0, Sodium Level 137, Potassium Level 4.8, Chloride Level 106, Carbon Dioxide Level 24, Anion Gap 7, Blood Urea Nitrogen 5L, Creatinine 0.58L, Estimat Glomerular Filtration Rate > 60, BUN/ Creatinine Ratio 9, Glucose Level 136H, Calcium Level 7.9L, Phosphorus Level 1.8L, Magnesium Level 1.9 Microbiology 11/23/18 Blood Culture - Preliminary, Resulted No growth 11/23/18 Influenza Types A,B Antigen (LEONEL) - Final, Complete 11/23/18 Urine Culture - Final, Complete NO GROWTH Assessment/Plan Assessment/Plan Assess & Plan/Chief Complaint lady with left pneumothorax, 10 days after repair of recurrent paraesophageal hernia. Dysphagia, improving. No air leak from pneumothorax. Chest x-ray negative for persistent pneumothorax. Most likely chest tube would be removed tomorrow. We will institute DVT prophylaxis and try to get out of bed lady with consolidation and atelectasis of the left lung. Left apical pneumothorax. Reasonable to consider hygiene bronchoscopy to improve handling of secretions. Requested Dr. Rouse, the residential counselor to be involved.. PICC line will be placed tomorrow with an intention of infusing TPN lady with a left pneumothorax. Atelectasis with a pneumonia. Mucous plug. Chest tube removed at the bedside uneventfully. We will increase ambulation and observe. Final Diagnosis left pneumothorax. Left atelectasis Clinical Quality Measures Admission Status Admission Dx lady with dysphagia and left pneumothorax following repair of recurrent paraesophageal hernia using minimally invasive technique. Tube thoracostomy to address pneumothorax would be reasonable. Possibility of esophageal perforation to be considered, but appears to be less likely. DVT/VTE Risk/Contraindication: Risk Factor Score Per Nursin RFS Level Per Nursing on Admit: 3=High CICI SEVILLA MD Nov 26, 2018 09:13
--- NOTE | 2018-11-26 12:25 | NUR ---
When RT finally made it to give patient her 1100 svn bt she was getting a pic line placed
--- NOTE | 2018-11-26 12:52 | Physician Query Clarification ---
PQ-Link Manifestation-Etiology Admission/Discharge Admission Date: Nov 23, 2018 at 19:05 Discharge Date: The medical record reflects the following clinical scenario: History/Risk Factors: Recent hiatal hernia surgery Left Pneumothorax Pneumonia Clinical Findings: Chest xray impressions showing: Left pneumothorax, Left lower lobe pneumonia, atelectasis and subcutaneous emphysema. Treatment: Left tube thoracostomy, bronchoscopy with mucous plug removal. IV Piperacillin Sod/Tazobactam Sod/Sodium Chloride, Nebulizer treatments. Question: Can you specify if the Left pneumothorax, LLL pneumonia, atelectasis and subcutaneous emphysema are due to/associated with previous hiatal hernia procedure? Please document a response below PHYSICIAN RESPONSE Manifestation due to/assoic: Clinically undetermined In responding to this query, please exercise your independent professional judgment. The purpose of this communication is to more accurately reflect the complexity of your patients condition. The fact that a question is asked does not imply that any particular answer is desired or expected. Thank you for your timely response to this clarification. Requestors name: Saritha Vazquez [facility] Phone # ext [phone] or [phone] THIS PHYSICIAN QUERY FORM IS A PERMANENT PART OF THE MEDICAL RECORD SARITHA VAZQUEZ Nov 26, 2018 12:52 CICI SEVILLA MD Nov 27, 2018 12:49
--- NOTE | 2018-11-26 13:40 | NUR ---
TPN: 58 Y/O F, HT 59 INCHES, ABW 50 KG, IBW 43.2 KG, DOSING BW 45 KG, BMI 22.3. BS 136, PHOS 1.8. ALLERGIES COD., CC LEFT ANTERIOR PNEUMOTHORAX. 30 MM PHOSPHATE GIVEN TO PATIENT THIS AM. ICU NUTRITION GUIDELINES RECOMMEND 20 KCAL PER KG, 1.2 GM PER KG PROTEIN, NO LIPIDS FIRST WEEK UNLESS ALREADY MALNOURISHED. 20 KCAL X 45 KG = 900 KCAL, 1.2 GM X 45 KG = 54 GM PROTEIN. PLAN: DUE TO LOW PHOS LEVEL AND ELEVATED BS, WILL START TPN AT HALF RATE OF 25 ML/HR PROVIDING 490 KCAL AND 28 GM PROTEIN. PENDING LABS WILL ADVANCE TO 45 ML/HR PROVIDING 880 KCAL AND 50 GM PROTEIN. IF EXTENDED TPN NEEDED WOULD INCREASE KCAL TO 30 GM PER KG = 1370 KCAL WITH ADDITION OF LIPIDS.
[2018-11-26] MEDS ORDERED: VITA1CAP PO (13:41)
--- NOTE | 2018-11-26 13:42 | NUR ---
WENT OVER THE EXT MED HX WITH THE PATIENT AND SHE VERIFIED HOW SHE TAKES THEM. SHE STATES SHE TAKES B COMPLEX OTC DAILY WELL.
--- NOTE | 2018-11-26 14:25 | NUR ---
Benjamin cath DC'd et pt ambulated to recliner with stand-by assist. Pt does become increasingly tachycardic with ambulation up to 140s, does not become SOB
[2018-11-26] MEDS ORDERED: [UNRECOGNIZED DRUG - OTHER] IV SCH ×10 (17:00)
[2018-11-26] MEDS ORDERED: SODIUM ACETATE IV SCH ×10 (17:00)
[2018-11-26] MEDS ORDERED: SODIUM CHLORIDE IV SCH ×10 (17:00)
--- NOTE | 2018-11-26 20:00 | NUR ---
Patient temperature 101.4, E-ICU notified and orders received.
[2018-11-26] MEDS ORDERED: ACETAMINOPHEN 325 MG TABLET PO PRN (20:15)
[2018-11-27] VITALS (20 sets, daily range): BP systolic 104–169; BP diastolic 69–106
[2018-11-27] MEDS: PIPERACILLIN/TAZOBACTAM (BULK) 4.5 GM in NS (IVPB) 100 ML IV SCH ×4 (00:23→23:35)
[2018-11-27] MEDS: CATHETER FLUSH 10 ML SYR IV SCH ×4 (00:23→20:00)
[2018-11-27 03:55] LABS: BASOPHILS % (AUTO) 0 % (0-10); EOSINOPHILS # (AUTO) 0.2 10^3/uL (0.0-0.3); EOSINOPHILS % (AUTO) 1 % (0-10); HEMATOCRIT 32 % (35-52); HEMOGLOBIN 10.5 G/DL (11.5-16.0); LYMPHOCYTES # (AUTO) 0.7 X 10^3 (1.0-4.0); LYMPHOCYTES % (AUTO) 4 % (12-44); MEAN CORPUSCULAR HEMOGLOBIN 29 PG (25-34); MEAN CORPUSCULAR HGB CONC 32 G/DL (32-36); MEAN CORPUSCULAR VOLUME 90 FL (80-99); MEAN PLATELET VOLUME 8.6 FL (7.4-10.4); MONOCYTES # (AUTO) 0.7 X 10^3 (0.0-1.0); MONOCYTES % (AUTO) 4 % (0-12); NEUTROPHILS # (AUTO) 15.6 X 10^3 (1.8-7.8); NEUTROPHILS % (AUTO) 91 % (42-75); PLATELET COUNT 347 10^3/uL (130-400); RED CELL DISTRIBUTION WIDTH 12.9 % (10.0-14.5); WHITE BLOOD COUNT 17.1 10^3/uL (4.3-11.0)
[2018-11-27 04:21] LABS: ALANINE AMINOTRANSFERASE 128 U/L (0-55); ALBUMIN 2.2 GM/DL (3.2-4.5); ALKALINE PHOSPHATASE 292 U/L (40-136); BILIRUBIN,TOTAL 0.7 MG/DL (0.1-1.0); BUN/CREATININE RATIO 10; CALCIUM 7.8 MG/DL (8.5-10.1); CARBON DIOXIDE 27 MMOL/L (21-32); CHLORIDE 102 MMOL/L (98-107); CREATININE SERUM 0.48 MG/DL (0.60-1.30); GFR ESTIMATED > 60; GLUCOSE 121 MG/DL (70-105); MAGNESIUM 1.4 MG/DL (1.8-2.4); PHOSPHORUS 2.8 MG/DL (2.3-4.7); POTASSIUM 3.7 MMOL/L (3.6-5.0); SODIUM 136 MMOL/L (135-145)
--- NOTE | 2018-11-27 06:50 | Pulmonary Progress Note ---
Subjective Time Seen by a Provider: 06:56 Subjective/Events-last exam Chest tube is out. leukocytosis is worse. TPN started. Sepsis Event Evaluation Height, Weight, BMI Height: 4'11.00" Weight: 110lbs. 3.0oz. 49.606954iu; 21.8 BMI Method:Stated Focused Exam Lactate Level 11/26/18 20:15: Lactic Acid Level 1.09 Exam Exam Vital Signs Date Time Temp Pulse Resp B/P (MAP) Pulse Ox O2 Delivery O2 Flow Rate FiO2 11/27/18 06:00 99 14 104/80 (88) 99 High Flow N/C 5.00 11/27/18 05:00 104 16 116/76 (89) 99 High Flow N/C 5.00 11/27/18 04:34 97.9 11/27/18 04:00 High Flow N/C 5.00 11/27/18 04:00 105 15 113/73 (86) 97 High Flow N/C 5.00 11/27/18 03:00 129 23 136/86 (103) 98 High Flow N/C 5.00 11/27/18 02:00 113 21 121/80 (94) 97 High Flow N/C 5.00 11/27/18 01:00 131 20 149/82 (104) 93 High Flow N/C 5.00 11/27/18 01:00 131 11/27/18 00:23 100.5 11/27/18 00:00 116 19 144/86 (105) 96 High Flow N/C 5.00 11/27/18 00:00 High Flow N/C 5.00 11/26/18 23:00 118 20 129/90 (103) 98 High Flow N/C 5.00 11/26/18 22:00 114 18 128/80 (96) 97 High Flow N/C 5.00 11/26/18 21:00 99.0 11/26/18 21:00 122 19 148/98 (115) 95 High Flow N/C 5.00 11/26/18 20:00 High Flow N/C 5.00 11/26/18 20:00 109 14 145/91 (109) 98 High Flow N/C 5.00 11/26/18 19:49 101.4 11/26/18 19:00 112 11/26/18 19:00 111 21 132/84 (100) 96 High Flow N/C 5.00 11/26/18 18:00 117 21 144/92 (109) 96 High Flow N/C 5.00 11/26/18 17:00 118 14 142/90 (107) 96 High Flow N/C 5.00 11/26/18 16:00 123 22 147/97 (114) 96 High Flow N/C 5.00 11/26/18 16:00 99.1 11/26/18 16:00 High Flow N/C 5.00 11/26/18 15:00 121 21 132/95 (107) 95 High Flow N/C 5.00 11/26/18 14:00 124 16 95 High Flow N/C 5.00 11/26/18 13:45 98 High Flow N/C 10.00 11/26/18 13:35 128 11/26/18 13:00 113 19 94 High Flow N/C 5.00 11/26/18 12:00 108 21 124/83 (97) 95 High Flow N/C 5.00 11/26/18 12:00 High Flow N/C 5.00 11/26/18 11:18 99.7 11/26/18 11:00 120 36 131/85 (100) 94 High Flow N/C 5.00 11/26/18 10:00 121 19 127/80 (96) 95 High Flow N/C 5.00 11/26/18 09:00 120 21 128/83 (98) 96 High Flow N/C 5.00 11/26/18 08:20 96 High Flow N/C 5.00 11/26/18 08:00 99.5 11/26/18 08:00 112 27 131/82 (98) 94 High Flow N/C 5.00 11/26/18 08:00 High Flow N/C 5.00 11/26/18 07:15 113 11/26/18 07:00 113 24 132/100 (111) 96 High Flow N/C 5.00 I & O 11/27/18 07:00 Intake Total 2500 ml Output Total 925 ml Balance 1575 ml Height & Weight Height: 4'11.00" Weight: 110lbs. 3.0oz. 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 Milner is managing chest tube -await official CXR report -Decrease oxygen down -Continue zosyn -Await Domínguez cultures Atelectasis -S/P bronchoscopy -CXR looks improved -Easy PAP QID with Duoneb -IS Sinus tach with Decreased UO. - Na+ is trending down. K+ is trending up -Change IVF to LR at 100 and give a 1 liter bolus -IVF will probably be d/c'd once TPN is started today. -Continue daily labs Dysphagia - TPN currently - Hypomag -replace SAM COLLINS DO Nov 27, 2018 06:50
[2018-11-27] MEDS ORDERED: PHARMACY TO DOSE IV SCH (07:00)
[2018-11-27] MEDS ORDERED: ANIDULAFUNGIN INJECTION 200 MG in NS (IVPB) 250 ML IV NR (07:00)
[2018-11-27] MEDS: LACTATED RINGERS 1,000 ML IV SCH ×2 (07:00→17:05)
[2018-11-27] MEDS: MAGNESIUM 1 GM/100 ML IVPB 100 ML IV SCH ×3 (07:07→08:16)
--- NOTE | 2018-11-27 07:10 | NUR ---
PHARMACY TO DOSE VANCOMYCIN: BASED ON IBW 43.2 KG & SCr 0.48, EST CrCl 89 LOADING DOSE: 1,250 MG MAIN DOSE: 750 MG IV Q12HRS VANCOMYCIN TROUGH ORDERED FOR 11/28/18 @ 19:00 IF TROUGH IS GREATER THAN 20 HOLD 11/28/18 20:00 DOSE.
[2018-11-27] MEDS: POTASSIUM CL 10MEQ/50ML IVPB 50 ML IV SCH (07:21)
[2018-11-27] MEDS: KCL 20 MEQ TAB (K-DUR) PO SCH (07:22)
[2018-11-27] MEDS: RT-ALBUTEROL SULF 2.5 MG/3 ML PRE-MIX VIAL INH SCH ×4 (07:29→18:59)
[2018-11-27] MEDS ORDERED: VANCOMYCIN 1250 MG/NS 250 ML IVPB IV SCH ×2 (07:30)
--- NOTE | 2018-11-27 07:58 | Diagnostic Imaging Report ---
INDICATION: Dyspnea. COMPARISON: 11/26/2018. FINDINGS: Left PICC has tip terminating in the superior cavoatrial junction. Improved but persistent left mid and lower lung zone consolidations. Left chest tube has been removed. No pneumothorax. Potential trace left pleural effusion. Stable cardiomediastinal silhouette. IMPRESSION: 1. Removal of left chest tube without pneumothorax. 2. Improved but persistent left mid and lower lung zone pulmonary opacities. Dictated by: Dictated on workstation # [id number]
[2018-11-27] MEDS: PANTOPRAZOLE 40 MG (PROTONIX) VIAL IV SCH ×2 (08:17→20:00)
[2018-11-27] MEDS: ENOXAPARIN 40 MG/0.4 ML (LOVENOX) SYR SC SCH (08:17)
[2018-11-27] MEDS: SENNA W/DOCUSATE (SENOKOT S) TABLET PO SCH (08:17)
--- NOTE | 2018-11-27 10:03 | NUR ---
TPN: TPN ADVANCED FROM 25 ML/HR TO FULL RATE OF 45 ML/HR. WILL PROVIDE 880 KCAL AND 50 GM PROTEIN. MG 1.4, PT. RECEIVING 3 GM MG. PLAN; CONTINUE TPN AT 45 ML/HR, WITH LR AT 55 ML/HR , ADJUST ELECTROLYTES PENDING LABS.
--- NOTE | 2018-11-27 16:06 | Progress Note-Standard ---
Standard Progress Note Progress Notes/Assess & Plan Date Seen by a Provider: Nov 27, 2018 Time Seen by a Provider: 16:04 Progress/Assessment & Plan BAL positive for staph and jovita; on appropriate antibiotics. Dysphagia unchanged. Barium study consistent with with fundoplication with lumen being preserved. Poor oral intake, on TPN. Would benefit from PT and possibly consideration for in-patient rehab. Final Diagnosis Left pneumothorax. Atelectasis with pneumonia Focused Exam Lactate Level 11/26/18 20:15: Lactic Acid Level 1.09 CICI SEVILLA MD Nov 27, 2018 16:06
--- NOTE | 2018-11-27 16:35 | Diagnostic Imaging Report ---
INDICATION: Status post hiatal hernia surgery with fundoplication. Patient has dysphagia. This study is performed for further evaluation. TECHNIQUE: The patient ingested thick barium and imaging over the lower chest and upper abdomen was performed. 1 minute and 16 seconds of fluoroscopy was utilized. FINDINGS: The patient was only able to take 3 sips of barium and then decided to terminate the study. The preliminary radiograph showed infiltrate and pleural fluid in the left base. The left upper extremity PICC line has its tip overlying the SVC. Post ingestion radiographs demonstrate contrast in the distal esophagus. There appears to be free passage of contrast into the stomach. No extravasation of contrast is seen. IMPRESSION: Unremarkable limited study. Dictated by: Dictated on workstation # [id number]
[2018-11-27] MEDS ORDERED: SODIUM CHLORIDE IV SCH ×10 (17:00)
[2018-11-27] MEDS ORDERED: [UNRECOGNIZED DRUG - OTHER] IV SCH ×10 (17:00)
[2018-11-27] MEDS ORDERED: SODIUM ACETATE IV SCH ×10 (17:00)
[2018-11-27] MEDS: morphine INJ 4 MG/ML 1 ML (VIAL/SYRINGE) IVP PRN ×2 (18:21→23:57)
[2018-11-27] MEDS: VANCOMYCIN 750 MG/NS 250 ML IVPB IV SCH ×2 (19:58)
[2018-11-28] VITALS (17 sets, daily range): BP systolic 129–178; BP diastolic 74–99
[2018-11-28] MEDS: morphine INJ 4 MG/ML 1 ML (VIAL/SYRINGE) IVP PRN ×6 (03:58→23:58)
[2018-11-28 04:06] LABS: BASOPHILS % (AUTO) 0 % (0-10); EOSINOPHILS # (AUTO) 0.5 10^3/uL (0.0-0.3); EOSINOPHILS % (AUTO) 4 % (0-10); HEMATOCRIT 33 % (35-52); HEMOGLOBIN 10.7 G/DL (11.5-16.0); LYMPHOCYTES % (AUTO) 8 % (12-44); MEAN CORPUSCULAR HEMOGLOBIN 30 PG (25-34); MEAN CORPUSCULAR HGB CONC 33 G/DL (32-36); MEAN CORPUSCULAR VOLUME 90 FL (80-99); MEAN PLATELET VOLUME 8.6 FL (7.4-10.4); MONOCYTES # (AUTO) 0.7 X 10^3 (0.0-1.0); MONOCYTES % (AUTO) 6 % (0-12); NEUTROPHILS # (AUTO) 10.1 X 10^3 (1.8-7.8); NEUTROPHILS % (AUTO) 83 % (42-75); PLATELET COUNT 425 10^3/uL (130-400); WHITE BLOOD COUNT 12.3 10^3/uL (4.3-11.0)
[2018-11-28 04:27] LABS: ALANINE AMINOTRANSFERASE 92 U/L (0-55); ALBUMIN 2.4 GM/DL (3.2-4.5); ALKALINE PHOSPHATASE 271 U/L (40-136); BILIRUBIN,TOTAL 0.5 MG/DL (0.1-1.0); BUN/CREATININE RATIO 14; CALCIUM 8.1 MG/DL (8.5-10.1); CARBON DIOXIDE 28 MMOL/L (21-32); CHLORIDE 103 MMOL/L (98-107); CREATININE SERUM 0.49 MG/DL (0.60-1.30); GFR ESTIMATED > 60; GLUCOSE 106 MG/DL (70-105); MAGNESIUM 1.8 MG/DL (1.8-2.4); PHOSPHORUS 2.7 MG/DL (2.3-4.7); POTASSIUM 3.5 MMOL/L (3.6-5.0); SODIUM 138 MMOL/L (135-145); TOTAL PROTEIN 5.5 GM/DL (6.4-8.2)
[2018-11-28] MEDS: KCL 20 MEQ TAB (K-DUR) PO SCH (04:31)
[2018-11-28] MEDS: CATHETER FLUSH 10 ML SYR IV SCH ×3 (04:31→20:23)
[2018-11-28] MEDS: MAGNESIUM 1 GM/100 ML IVPB 100 ML IV SCH (04:31)
[2018-11-28] MEDS: POTASSIUM CL 10MEQ/50ML IVPB 50 ML IV SCH ×3 (04:31→06:01)
--- NOTE | 2018-11-28 05:05 | Pulmonary Progress Note ---
Subjective Time Seen by a Provider: 05:11 Subjective/Events-last exam PT states she had some SOB last night. No productive cough. Sepsis Event Evaluation Height, Weight, BMI Height: 4'11.00" Weight: 115lbs. 4.0oz. 52.501660xa; 21.8 BMI Method:Stated Focused Exam Lactate Level 11/26/18 20:15: Lactic Acid Level 1.09 Exam Exam Vital Signs Date Time Temp Pulse Resp B/P (MAP) Pulse Ox O2 Delivery O2 Flow Rate FiO2 11/28/18 04:00 97 17 160/89 (112) 96 High Flow N/C 3.00 11/28/18 03:58 98.0 11/28/18 03:45 98.0 11/28/18 03:40 96 High Flow N/C 3.50 11/28/18 03:00 106 17 140/91 (107) 98 High Flow N/C 3.00 11/28/18 02:00 89 16 134/84 (101) 99 High Flow N/C 3.00 11/28/18 01:00 89 11/28/18 01:00 86 24 129/74 (92) 99 High Flow N/C 3.00 11/28/18 00:00 93 18 152/99 (116) 98 High Flow N/C 3.00 11/28/18 00:00 95 High Flow N/C 3.50 11/27/18 23:57 99.2 11/27/18 23:40 99.4 11/27/18 23:00 93 18 141/87 (105) 99 High Flow N/C 3.00 11/27/18 22:24 92 17 145/90 (108) 98 High Flow N/C 3.00 11/27/18 21:00 111 23 166/90 (115) 98 High Flow N/C 3.00 11/27/18 20:00 99 High Flow N/C 3.50 11/27/18 20:00 98 15 145/86 (105) 98 High Flow N/C 3.00 11/27/18 19:00 90 11/27/18 19:00 98 Nasal Cannula 3.00 11/27/18 19:00 90 16 143/97 (112) 98 High Flow N/C 3.00 11/27/18 19:00 98.0 98 20 143/97 (112) 99 Nasal Cannula 3.50 11/27/18 18:00 113 12 High Flow N/C 3.00 11/27/18 17:00 104 16 157/105 (122) 100 High Flow N/C 3.00 11/27/18 16:00 High Flow N/C 3.00 11/27/18 16:00 112 18 169/106 (127) 99 High Flow N/C 3.00 11/27/18 15:00 113 22 159/105 (123) 97 High Flow N/C 3.00 11/27/18 13:00 105 19 151/92 (111) 95 High Flow N/C 3.00 11/27/18 12:55 113 11/27/18 12:00 109 19 94 High Flow N/C 3.00 11/27/18 12:00 98.2 11/27/18 12:00 High Flow N/C 3.00 11/27/18 11:00 109 19 94 High Flow N/C 3.00 11/27/18 11:00 106 17 138/82 (100) 96 High Flow N/C 3.00 11/27/18 10:00 110 18 129/69 (89) 94 High Flow N/C 3.00 11/27/18 09:00 101 15 119/76 (90) 96 High Flow N/C 3.00 11/27/18 08:00 97.8 11/27/18 08:00 103 21 114/82 (93) 96 High Flow N/C 3.00 11/27/18 08:00 High Flow N/C 3.00 11/27/18 07:29 97 Nasal Cannula 5.00 11/27/18 07:12 111 11/27/18 06:00 99 14 104/80 (88) 99 High Flow N/C 5.00 I & O 11/28/18 07:00 Intake Total 2110.0 ml Output Total 1825 ml Balance 285.0 ml Height & Weight Height: 4'11.00" Weight: 115lbs. 4.0oz. 52.200522mp; 21.8 BMI Method:Stated General Appearance: No Apparent Distress Neck: Normal Inspection Respiratory: Crackles Cardiovascular: Regular Rate, Rhythm Capillary Refill: Less Than 3 Seconds Gastrointestinal: non tender, soft Extremity: Normal Inspection Neurologic/Psychiatric: Alert, Oriented x3 Skin: Warm/Dry Lymphatic: No Adenopathy Results Lab Laboratory Tests 11/27/18 03:49 11/28/18 03:40 11/28/18 03:45 Assessment/Plan Assessment/Plan Iatrogenic left PTX after hiatal hernia surgery s/p Chest tube placement L sided pneumonia - with MRSA and candidiasis -Vancomycin, and Eraxis -D/C Zosyn -PTX appears resolved and No air leak in chest tube currently - Dr. Milner is managing chest tube -await official CXR report -Decrease oxygen down -Await Domínguez cultures Atelectasis -S/P bronchoscopy -Easy PAP QID with Duoneb -IS -Increase activity Sinus tach with Decreased UO. - Na+ is trending down. K+ is trending up -Change IVF to LR at 100 and give a 1 liter bolus -IVF will probably be d/c'd once TPN is started today. -Continue daily labs Dysphagia - TPN currently - Hypomag -replace SAM COLLINS DO Nov 28, 2018 05:05
[2018-11-28] MEDS: RT-ALBUTEROL SULF 2.5 MG/3 ML PRE-MIX VIAL INH SCH ×4 (07:24→20:09)
[2018-11-28] MEDS ORDERED: meTOprolol 5 MG/5 ML (LOPRESSOR) VIAL IV PRN (07:45)
--- NOTE | 2018-11-28 07:56 | Consultation-Hospitalist ---
HPI History of Present Illness: HPI/Chief Complaint Pt is a 58yoCF with a PMH of hiatal hernia s/p repair on 11/14 who was admitted for left sided pneumothorax and bilateral pneumonia. She states she had surgery in [place] on 11/14 and did not do well afterwards. She felt weak and very short of breath. Per ER note on presentation she had subcutaneous emphysema and underwent CTA which revealed the large pneumothorax. Chest Tube was placed in the ER by Dr Milner that evening. Chest tube has since been discontinued on . She underwent bronchoscopy with Dr Rouse and cultures from BAL grew MRSA and jovita. She is currently being treated with Vancomycin and Eraxis. Her only complaint to me today is some shoulder pain on the left side. She is quite hypertensive and denies any history of high blood pressure. She states she has been getting up to chair but has not really ambulated otherwise. Source: patient Date Seen 11/28/18 Attending Physician Roger Milner MD PCP Kartik Grande DO Referring Physician Date of Admission Nov 23, 2018 at 19:05 Home Medications & Allergies Home Medications Reviewed patient Home Medication Reconciliation performed by pharmacy medication reconciliations marine propulsion technician and/or nursing. Patients Allergies have been reviewed. Allergies Allergies Coded Allergies codeine (Unverified Adverse Reaction, Unknown, 09/03/18) severe stomach pain Past Itbsjhg-Rbuoiz-Upletf Hx Past Med/Social Hx: Reviewed Nursing Past Med/Soc Hx Patient Social History Marrital Status: single Employed/Student: employed Alcohol Use: Denies Use Recreational Drug Use: No Smoking Status: Never a Smoker Recent Foreign Travel: No Contact w/other who traveled: No Recent Hopitalizations: No Recent Infectious Disease Expo: No Immunizations Up To Date Tetanus Booster (TDap): Unknown Date of Pneumonia Vaccine: Sep 18, 2009 Date of Influenza Vaccine: Nov 15, 2018 Seasonal Allergies Seasonal Allergies: Yes Past Medical History Surgeries: Abdominal, Gallbladder, Hysterectomy Currently Using CPAP: No Currently Using BIPAP: No : No 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: No Sexually Transmitted Disease: No HIV/AIDS: No Female 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 Disorders: Denies Hysterectomy Gastrointestinal: Gastroesophageal Reflux, Hiatal Hernia Loss of Vision: Bilateral Hearing Impairment: Denies History of Blood Disorders: No Adverse Reaction to Blood Amin: No Family History Reviewed Nursing Family Hx Patient reports no known family medical history. No Pertinent Family Hx Review of Systems Constitutional: No fever; weakness Respiratory: short of breath Cardiovascular: No chest pain Gastrointestinal: No abdominal pain Musculoskeletal: joint pain (left shoulder pain) All Other Systems Reviewed Negative Unless Noted: Yes (Negative excepted noted.) Physical Exam Physical Exam Vital Signs Vital Signs - First Documented 11/23/18 11/23/18 11/23/18 14:45 15:02 18:20 Temp 98.0 Pulse 123 Resp 18 B/P (MAP) 174/91 (118) Pulse Ox 81 O2 Delivery Room Air O2 Flow Rate 4.00 FiO2 100 Capillary Refill : Less Than 3 Seconds Height, Weight, BMI Height: 4'11.00" Weight: 112lbs. 7.0oz. 51.571150pj; 21.8 BMI Method:Stated General Appearance: No Apparent Distress, WD/WN Respiratory: Crackles Cardiovascular: Regular Rate, Rhythm, No JVD, No Murmur Gastrointestinal: Normal Bowel Sounds, Non Tender, Soft Extremity: Normal Inspection Neurologic/Psychiatric: Alert, Oriented x3 Skin: Warm/Dry Lymphatic: No Adenopathy Results Results/Procedures Labs Laboratory Tests 11/27/18 03:49 11/28/18 03:40 11/28/18 03:45 Patient resulted labs reviewed. Assessment/Plan Assessment and Plan Assess & Plan/Chief Complaint Pneumothorax Diagnosis/Problems Diagnosis/Problems (1) Elevated blood pressure reading Assessment & Plan: No history of HTN Will treat pain first and add lopressor is not improved (2) MRSA pneumonia Assessment & Plan: Continue on Vanc Bactroban to decolonize nares Pulm consulted, appreciate recs Qualifiers: Laterality: left Lung location: unspecified part of lung Qualified Codes : J15.212 - Pneumonia due to methicillin resistant Staphylococcus aureus (3) Pneumothorax, left Status: Acute Assessment & Plan: Management per Dr Milner s/p Chest Tube (4) Paraesophageal hiatal hernia Status: Acute Assessment & Plan: s/p fundoplication in [place] Continue PPI Management per primary (5) Debility Assessment & Plan: PT/OT consulted IRU consult Encouraged OOB (6) Protein-energy malnutrition Assessment & Plan: Prealbumin <3 Albumin 2.4 today Continue on TPN Qualifiers: Protein-calorie malnutrition severity: moderate Qualified Codes: E44.0 - Moderate protein-calorie malnutrition Clinical Quality Measures DVT/VTE Risk/Contraindication: Risk Factor Score Per Nursin RFS Level Per Nursing on Admit: 3=High MALA BLAS MD Nov 28, 2018 07:56
[2018-11-28] MEDS: VANCOMYCIN 750 MG/NS 250 ML IVPB IV SCH ×4 (08:05→21:34)
[2018-11-28] MEDS: SENNA W/DOCUSATE (SENOKOT S) TABLET PO SCH (08:06)
[2018-11-28] MEDS: MUPIROCIN 2% OINT 22 GM (BACTROBAN) TUBE TOP SCH ×2 (08:06→20:22)
[2018-11-28] MEDS: LACTATED RINGERS 1,000 ML IV SCH (08:06)
[2018-11-28] MEDS: PANTOPRAZOLE 40 MG (PROTONIX) VIAL IV SCH ×2 (08:06→20:22)
[2018-11-28] MEDS: ENOXAPARIN 40 MG/0.4 ML (LOVENOX) SYR SC SCH (08:06)
[2018-11-28] MEDS: ANIDULAFUNGIN INJECTION 100 MG in NS (IVPB) 100 ML IV SCH (09:20)
--- NOTE | 2018-11-28 10:00 | NUR ---
ARU NOTE: Referral received for evaluation for ARU placement. SOPHIA Blanchard has reviewed clinical information and initiated prior auth from [facility]. Thank you for this referral.
--- NOTE | 2018-11-28 11:45 | Physical Therapy Evaluation ---
PT Evaluation-General Medical Diagnosis Admission Date Nov 23, 2018 at 19:05 Medical Diagnosis: pneumonia and pneumothorax Onset Date: Nov 23, 2018 Therapy Diagnosis Therapy Diagnosis: impaired mobility, endurance Height/Weight Height (Feet): 4 Height (Inches): 11.00 Weight (Pounds): 112 Weight (Ounces): 7.0 Precautions Precautions/Isolations: Droplet Isolation, Fall Prevention, Standard Precautions Weight Bear Status Right Lower Extremity: Right Weight Bearing/Tolerated Left Lower Extremity: Left Weight Bearing/Tolerated Referral Physician: Joseline Rhoades MD Reason for Referral: Evaluation/Treatment Medical History Pertinent Medical History: GERD, HTN Additional Medical History surg (hiatal hernia repair, abdominal, gallbladder, hysterectomy) Current History increased SOB and dysphagia 8 days following robotic assisted repair of recurrent paraesophageal hernia Reviewed History: Yes Social History Home: Multilevel Current Living Status: Alone Entry Into Home: Stairs With Railing PT Steps Into Home: 4 Patient has a flight of steps inside home going into the basement that she has to use Prior/Core FIM Prior Level of Function Therapy Code Descriptions/Definitions Functional [place] Measure: 0=Not Assessed/NA 4=Minimal Assistance 1=Total Assistance 5=Supervision or Setup 2=Maximal Assistance 6=Modified [place] 3=Moderate Assistance 7=Complete [place] Therapy Quality Codes: 6 Independent with activity with or without an assistive device 5 Patient requires set up or clean up by helper. Patient completes activity by themselves 4 Supervision or touching assist (CGA). [place] provide cues , steadying assist 3 The helper provides less than half the effort to complete the activity 2 The helper provides more than half the effort to complete the activity 1 Dependent. The helper does all the effort to complete an activity 7 Patient refused to complete or attempt activity 9 The patient did not perform the activity before the current illness or injury 88 Not attempted due to Medical conditions or safety concerns Functional Abilities and Goals: Independent: Patient completed the activities by him/herself, with or without an assistive device, with no assistance from a helper. Needed Some Help: Patient needed partial assistance from another person to complete activities. Dependent: A helper completed the activities for the patient. Unknown: Not Applicable: Bed Mobility: 7 Transfers (B,C,W/C) (FIM): 7 Gait: 7 Stairs: 7 Indoor Mobility (Ambulation): Independent Stairs: Independent PT Evaluation-Current Subjective Patient in bed pre tx, agrees to PT, states she has little pain at rest. Pt/Family Goals to be independent at home Objective Patient Orientation: Person, Place, Situation Attachments: Oxygen, IV ROM/Strength ROM Lower Extremities WNL Strength Lower Extremities NT due to abdominal pain Neuromuscular (Tone, Coordination, Reflexes) NT Sensory Vision: Wears Glasses Hearing: Functional Sensation Right Lower Extremit: Intact Sensation Left Lower Extremity: Intact Transfers Therapy Code Descriptions/Definitions Functional [place] Measure: 0=Not Assessed/NA 4=Minimal Assistance 1=Total Assistance 5=Supervision or Setup 2=Maximal Assistance 6=Modified [place] 3=Moderate Assistance 7=Complete [place] Transfers (B, C, W/C) (FIM): 4 Scootin Rollin Supine to/from Sit: 4 Sit to/from Stand: 5 bed t/f WC(FIM only if WC use): 5 Patient needs min assist for supine to sit. Gait Mode of Locomotion: Walk Anticipated Mode of Locomotion: Walk Gait (FIM): 1 Distance: 40' Gait Level of Assist: 5 Gait Persons Needed: 1 Gait Assistive Device: FWW Comments/Gait Description Patient ambulated about 40' with SBA using a rolling walker. She had one moment of unsteadiness and states that it feels like her knees are going to buckle (CGA) and then ambulated back to the bed. Balance Sitting Static: Normal Sitting Dynamic: Normal Standing Static: Good Standing Dynamic: Good Treatment supine exercises x15 (AP, HS) Assessment/Needs Patient has impaired mobility and endurance. SOB with activity. Patient in bed post tx with nurse call, phone, tray, all needs met. Rehab Potential: Fair PT Short Term Goals Short Term Goals Time Frame: Dec 05, 2018 Transfers (B,C,W/C) (FIM): 6 Gait (FIM): 5 Gait Distance Comment: 150' Gait Level of Assist: 5 Gait Assistive Device: FWW PT Plan Problem List Problem List: Activity Tolerance, Functional Strength, Safety, Balance, Gait, Transfer, Bed Mobility, ROM Treatment/Plan Treatment Plan: Continue Plan of Care Treatment Plan: Bed Mobility, Education, Functional Activity April, Functional Strength, Gait, Safety, Therapeutic Exercise, Transfers Treatment Duration: Dec 05, 2018 Frequency: 6 times per week Estimated Hrs Per Day: .25 hour per day (15-30') Patient and/or Family Agrees t: Yes Safety Risks/Education Patient Education: Gait Training, Transfer Techniques, Correct Positioning, Safety Issues Teaching Recipient: Patient Teaching Methods: Demonstration, Discussion Response to Teaching: Reinforcement Needed Discharge Recommendations Plan Patient will perform bed mobility and transfer training, balance and endurance training, functional strengthening, stair training, gait training, and education , to improve functional mobility and independence at home. Therapy D/C Recommendations: Home w/ Family Support Time/GCodes Time In: 1115 Time Out: 1136 Total Billed Treatment Time: 21 Total Billed Treatment 1 visit AMY LILLY PT Nov 28, 2018 11:45
--- NOTE | 2018-11-28 12:25 | Occupational Therapy Eval ---
OT Evaluation-General/PLF Medical Diagnosis Admission Date Nov 23, 2018 at 19:05 Medical Diagnosis: pneumonia and pneumothorax Onset Date: Nov 23, 2018 Therapy Diagnosis Therapy Diagnosis: Weakness Height/Weight Height (Feet): 4 Height (Inches): 11.00 Weight (Pounds): 112 Weight (Ounces): 7.0 Precautions Precautions/Isolations: Droplet Isolation, Fall Prevention, Standard Precautions Safety Interventions: None Weight Bear Status Weight Bearing Restriction: Weight Bearing/Tolerated Referral Physician: Joseline Rhoades MD Referral Reason: Activity Tolerance, Self Care, Evaluation/Treatment, Strengthening/ROM Medical History Pertinent Medical History: GERD, HTN Current History Pt. had recent hernia repair. Developed dysphagia, and left pneumothorax. Reviewed History: Yes Social History Home: Multilevel Current Living Status: Alone Entry Into Home: Stairs With Railing Steps Into Home: 4 Steps Inside Home: 8 ADL-Prior Level of Function Therapy Code Descriptions/Definitions Functional [place] Measure: 0=Not Assessed/NA 4=Minimal Assistance 1=Total Assistance 5=Supervision or Setup 2=Maximal Assistance 6=Modified [place] 3=Moderate Assistance 7=Complete [place] Therapy Quality Codes: 6 Independent with activity with or without an assistive device 5 Patient requires set up or clean up by helper. Patient completes activity by themselves 4 Supervision or touching assist (CGA). [place] provide cues , steadying assist 3 The helper provides less than half the effort to complete the activity 2 The helper provides more than half the effort to complete the activity 1 Dependent. The helper does all the effort to complete an activity 7 Patient refused to complete or attempt activity 9 The patient did not perform the activity before the current illness or injury 88 Not attempted due to Medical conditions or safety concerns Functional Abilities and Goals: Independent: Patient completed the activities by him/herself, with or without an assistive device, with no assistance from a helper. Needed Some Help: Patient needed partial assistance from another person to complete activities. Dependent: A helper completed the activities for the patient. Unknown: Not Applicable: ADL PLOF Comments Pt. was independent with daily tasks. Pt. does not use AE. Self Care: Independent Functional Cognition: Independent Drive Self: Yes OT Current Status Subjective Pt. reports pain in left trap. States that she does not know if she slept "wrong" or what. Does not report a pain level. Appearance Pt. in bed. Agrees to work with OT. Mental Status/Objective Patient Orientation: Person, Place Attachments: IV, Oxygen, Telemetry Current Hand Dominance: Right Upper Extremity ROM Full ROM left UE. Pt. demonstrates approximately 100 degrees left shoulder ROM. Upper Extremity Strength Right UE- 3+/5 throughout Left UE- approximately 2+/5 throughout ADL-Treatment Therapy Code Descriptions/Definitions Functional [place] Measure: 0=Not Assessed/NA 4=Minimal Assistance 1=Total Assistance 5=Supervision or Setup 2=Maximal Assistance 6=Modified [place] 3=Moderate Assistance 7=Complete [place] Therapy Quality Codes: 6 Independent with activity with or without an assistive device 5 Patient requires set up or clean up by helper. Patient completes activity by themselves 4 Supervision or touching assist (CGA). [place] provide cues , steadying assist 3 The helper provides less than half the effort to complete the activity 2 The helper provides more than half the effort to complete the activity 1 Dependent. The helper does all the effort to complete an activity 7 Patient refused to complete or attempt activity 9 The patient did not perform the activity before the current illness or injury 88 Not attempted due to Medical conditions or safety concerns Grooming (FIM): 2 (OT brushed hair as pt was fatigued and weak seated on side of bed.) Bathing (FIM): 3 (Mod assist overall to bathe seated on side of bed. OT assisted with washing bilateral LE and feet, hair with dry shampoo. PT able to "dab" at chest area due to stitches and multiple wires. Pt. able to wash jack area in stance.) Lower Body Dressing (FIM): 3 (Doff/don slipper socks.) Transfers (B, C, W/C) (FIM): 4 (Min assist overall to transfer supine-sit and sit-stand.) Other Treatments After ADLs, pt. transferred back to bed with all needs met. Education OT Patient Education: Correct positioning, Modified ADL techniques, Progress toward Goal/Update tx plan, Purpose of tx/functional activities, Reviewed precautions, Rehab process, Transfer techniques Teaching Recipient: Patient Teaching Methods: Demonstration, Discussion Response to Teaching: Verbalize Understanding, Return Demonstration OT Short Term Goals Short Term Goals Time Frame: Dec 05, 2018 Eating(FIM): 5 Grooming(FIM): 4 Bathing(FIM): 4 Upper Body Dressing(FIM): 5 Lower Body Dressing(FIM): 4 Toileting(FIM): 4 Transfers (B,C,W/C) (FIM): 5 Toilet/Commode Transfer(FIM): 5 Additional Short Term Goals: 1-Demonstrate ADL Tasks, 2-Verbalize Understanding , 3-ImproveStrength/April 1=Demonstrate adherence to instructed precautions during ADL tasks. 2=Patient will verbalize/demonstrate understanding of assistive devices/ modifications for ADL. 3=Patient will improve strength/tolerance for activity to enable patient to perform ADL's. OT Site Promotion Agent Goals Fpc Goals Time Frame: Dec 12, 2018 Eating (FIM): 6 Grooming(FIM): 6 Bathing(FIM): 5 Upper Body Dressing(FIM): 6 Lower Body Dressing(FIM): 6 Toileting(FIM): 6 Transfers (B,C,W/C) (FIM): 6 Toilet/Commode Transfer(FIM): 6 Shower Transfer(FIM): 5 Additional Goals: 1-Demonstrate ADL Tasks, 2-Verbalize Understanding, 3- ImproveStrength/April 1=Demonstrate adherence to instructed precautions during ADL tasks. 2=Patient will verbalize/demonstrate understanding of assistive devices/ modifications for ADL. 3=Patient will improve strength/tolerance for activity to enable patient to perform ADL's. OT Education/Plan Problem List/Assessment Assessment: Decreased Activ Tolerance, Decreased UE Strength, Impaired I ADL's , Impaired Self-Care Skills Discharge Recommendations Plan/Recommendations: Continue POC Therapy D/C Recommendations: Home w/ Family Support, Occupational Therapy Home Care Comment To be determined. Treatment Plan/Plan of Care Treatment,Training & Education: Yes Patient would benefit from OT for education, treatment and training to promote independence in ADL's, mobility, safety and/or upper extremity function for ADL' s. Plan of Care: ADL Retraining, Functional Mobility, UE Funct Exercise/Act Treatment Duration: Dec 12, 2018 Frequency: 5 times per week Estimated Hrs Per Day: .25 hour per day Agreement: Yes Rehab Potential: Fair Time/GCodes Start Time: 11:35 Stop Time: 12:05 Total Time Billed (hr/min): 30 Billed Treatment Time 1, EVH x 15minutes, ADL x 15minutes RENNY BRANDON OT Nov 28, 2018 12:25
[2018-11-28] MEDS: LACTOBACILLUS ACIDOPHILUS (PROBIOTIC) CAPSULE PO SCH ×2 (13:19→16:21)
--- NOTE | 2018-11-28 15:00 | NUR ---
REPORT RECEIVED FROM BEE WORKER LORETTA BECKER. THIS RN IS IN AGREEMENT WITH PREVIOUS ASSESSMENTS DONE TODAY. WILL ASSUME CARE OF PATIENT AT THIS TIME. PATIENT DENIES ANY NEEDS AT THIS TIME. ADULT DAUGHTER IS AT BEDSIDE.
--- NOTE | 2018-11-28 15:28 | NUR ---
PATIENT REQUESTING PAIN MEDICATION. DR BLAS CHANGED MORPHINE TO EVERY 3 HOURS. PATIENT REFUSED TYLENOL AT THIS TIME. SHE STATED THAT SHE EILL NOT BE ABLE TO SWALLOW IT.
[2018-11-28] MEDS ORDERED: SODIUM ACETATE IV SCH ×10 (17:00)
[2018-11-28] MEDS ORDERED: SODIUM CHLORIDE IV SCH ×10 (17:00)
[2018-11-28] MEDS ORDERED: [UNRECOGNIZED DRUG - OTHER] IV SCH ×10 (17:00)
--- NOTE | 2018-11-28 18:07 | Progress Note (SOAP) ---
Subjective Date Seen by a Provider: Nov 28, 2018 Time Seen by a Provider: 18:00 Subjective/Events-last exam doing ok. still has some dysphagia however able to tolerate some liquids. on TPN. continued tx for pneumonia. Focused Exam Lactate Level 11/26/18 20:15: Lactic Acid Level 1.09 Objective Exam Vital Signs Date Time Temp Pulse Resp B/P (MAP) Pulse Ox O2 Delivery O2 Flow Rate FiO2 11/28/18 15:25 92 Nasal Cannula 1.00 11/28/18 15:00 100.4 109 20 178/93 (121) 92 Nasal Cannula 1.00 11/28/18 14:00 112 23 157/94 (115) 95 Nasal Cannula 1.00 11/28/18 13:04 112 11/28/18 13:00 106 18 162/91 (114) 97 Nasal Cannula 1.00 11/28/18 12:00 96 High Flow N/C 1.00 11/28/18 12:00 114 23 153/99 (117) 91 Nasal Cannula 1.00 11/28/18 12:00 98.7 11/28/18 11:13 Nasal Cannula 1.00 11/28/18 11:04 97 Nasal Cannula 2.00 11/28/18 11:00 93 22 152/89 (110) High Flow N/C 2.00 11/28/18 10:00 94 17 146/88 (107) High Flow N/C 2.00 11/28/18 09:00 98 18 156/90 (112) 97 High Flow N/C 2.00 11/28/18 08:00 98.2 11/28/18 08:00 96 High Flow N/C 2.50 11/28/18 08:00 96 17 145/89 (107) 95 High Flow N/C 2.00 11/28/18 07:30 High Flow N/C 2.00 11/28/18 07:25 95 Nasal Cannula 3.00 11/28/18 07:02 120 11/28/18 07:00 125 35 145/89 (107) High Flow N/C 3.00 11/28/18 06:00 97 20 143/88 (106) 94 High Flow N/C 3.00 11/28/18 05:00 98 15 137/91 (106) 98 High Flow N/C 3.00 11/28/18 04:00 97 17 160/89 (112) 96 High Flow N/C 3.00 11/28/18 03:58 98.0 11/28/18 03:45 98.0 11/28/18 03:40 96 High Flow N/C 3.50 11/28/18 03:00 106 17 140/91 (107) 98 High Flow N/C 3.00 11/28/18 02:00 89 16 134/84 (101) 99 High Flow N/C 3.00 11/28/18 01:00 89 11/28/18 01:00 86 24 129/74 (92) 99 High Flow N/C 3.00 11/28/18 00:00 93 18 152/99 (116) 98 High Flow N/C 3.00 11/28/18 00:00 95 High Flow N/C 3.50 11/27/18 23:57 99.2 11/27/18 23:40 99.4 11/27/18 23:00 93 18 141/87 (105) 99 High Flow N/C 3.00 11/27/18 22:24 92 17 145/90 (108) 98 High Flow N/C 3.00 11/27/18 21:00 111 23 166/90 (115) 98 High Flow N/C 3.00 11/27/18 20:00 99 High Flow N/C 3.50 11/27/18 20:00 98 15 145/86 (105) 98 High Flow N/C 3.00 11/27/18 19:00 90 11/27/18 19:00 98 Nasal Cannula 3.00 11/27/18 19:00 90 16 143/97 (112) 98 High Flow N/C 3.00 11/27/18 19:00 98.0 98 20 143/97 (112) 99 Nasal Cannula 3.50 I & O 11/28/18 07:00 Intake Total 2210.0 ml Output Total 2125 ml Balance 85.0 ml Capillary Refill : Less Than 3 Seconds General Appearance: No Apparent Distress HEENT: PERRL/EOMI Neck: Full Range of Motion Respiratory: Chest Non Tender, Decreased Breath Sounds Cardiovascular: Regular Rate, Rhythm Gastrointestinal: normal bowel sounds, soft Extremity: Normal Capillary Refill Neurologic/Psychiatric: Alert, Oriented x3 Skin: Normal Color Lymphatic: No Adenopathy Results Lab Laboratory Tests 11/28/18 03:40: White Blood Count 12.3H, Red Blood Count 3.61L, Hemoglobin 10.7L, Hematocrit 33L , Mean Corpuscular Volume 90, Mean Corpuscular Hemoglobin 30, Mean Corpuscular Hemoglobin Concent 33, Red Cell Distribution Width 13.0, Platelet Count 425H, Mean Platelet Volume 8.6, Neutrophils (%) (Auto) 83H, Lymphocytes (%) (Auto) 8L , Monocytes (%) (Auto) 6, Eosinophils (%) (Auto) 4, Basophils (%) (Auto) 0, Neutrophils # (Auto) 10.1H, Lymphocytes # (Auto) 1.0, Monocytes # (Auto) 0.7, Eosinophils # (Auto) 0.5H, Basophils # (Auto) 0.0 11/28/18 03:45: Sodium Level 138, Potassium Level 3.5L, Chloride Level 103, Carbon Dioxide Level 28, Anion Gap 7, Blood Urea Nitrogen 7, Creatinine 0.49L, Estimat Glomerular Filtration Rate > 60, BUN/Creatinine Ratio 14, Glucose Level 106H, Calcium Level 8.1L, Corrected Calcium 9.4, Phosphorus Level 2.7, Magnesium Level 1.8, Total Bilirubin 0.5, Aspartate Amino Transf (AST/SGOT) 37H, Alanine Aminotransferase (ALT/SGPT) 92H, Alkaline Phosphatase 271H, Total Protein 5.5L, Albumin 2.4L Microbiology 11/26/18 Blood Culture - Preliminary, Resulted No growth 11/27/18 MRSA Screen - Final, Complete MRSA not isolated 11/23/18 Urine Culture - Final, Complete NO GROWTH Assessment/Plan Assessment/Plan Assess & Plan/Chief Complaint dyshagia s/p HH repair with pneumonia. slowly improving with intake. continue TPN for now. continue abx and antifungal for pneumonia. Clinical Quality Measures DVT/VTE Risk/Contraindication: Risk Factor Score Per Nursin RFS Level Per Nursing on Admit: 3=High TAI SANCHEZ MD Nov 28, 2018 18:07
[2018-11-28] MEDS ORDERED: TROUGH ORDER-PHARMACY XX NR (20:00)
[2018-11-29] VITALS (8 sets, daily range): BP systolic 149–178; BP diastolic 88–96
[2018-11-29] MEDS: morphine INJ 4 MG/ML 1 ML (VIAL/SYRINGE) IVP PRN ×6 (03:15→21:07)
[2018-11-29 03:55] LABS: BASOPHILS % (AUTO) 0 % (0-10); EOSINOPHILS # (AUTO) 0.5 10^3/uL (0.0-0.3); EOSINOPHILS % (AUTO) 6 % (0-10); HEMATOCRIT 32 % (35-52); HEMOGLOBIN 10.5 G/DL (11.5-16.0); LYMPHOCYTES % (AUTO) 11 % (12-44); MEAN CORPUSCULAR HEMOGLOBIN 29 PG (25-34); MEAN CORPUSCULAR HGB CONC 33 G/DL (32-36); MEAN CORPUSCULAR VOLUME 91 FL (80-99); MEAN PLATELET VOLUME 8.6 FL (7.4-10.4); MONOCYTES # (AUTO) 0.9 X 10^3 (0.0-1.0); MONOCYTES % (AUTO) 10 % (0-12); NEUTROPHILS # (AUTO) 6.5 X 10^3 (1.8-7.8); NEUTROPHILS % (AUTO) 74 % (42-75); PLATELET COUNT 392 10^3/uL (130-400); RED CELL DISTRIBUTION WIDTH 12.8 % (10.0-14.5); WHITE BLOOD COUNT 8.9 10^3/uL (4.3-11.0)
[2018-11-29 04:19] LABS: BUN/CREATININE RATIO 10; CALCIUM 8.2 MG/DL (8.5-10.1); CARBON DIOXIDE 25 MMOL/L (21-32); CHLORIDE 103 MMOL/L (98-107); CREATININE SERUM 0.48 MG/DL (0.60-1.30); GFR ESTIMATED > 60; GLUCOSE 123 MG/DL (70-105); MAGNESIUM 1.7 MG/DL (1.8-2.4); PHOSPHORUS 3.2 MG/DL (2.3-4.7); POTASSIUM 3.3 MMOL/L (3.6-5.0); SODIUM 137 MMOL/L (135-145)
[2018-11-29] MEDS: VANCOMYCIN 750 MG/NS 250 ML IVPB IV SCH ×4 (05:38→13:52)
[2018-11-29] MEDS: LACTATED RINGERS 1,000 ML IV SCH ×2 (05:38→17:00)
[2018-11-29] MEDS: LACTOBACILLUS ACIDOPHILUS (PROBIOTIC) CAPSULE PO SCH ×3 (05:41→18:06)
[2018-11-29] MEDS: CATHETER FLUSH 10 ML SYR IV SCH ×3 (06:48→21:08)
[2018-11-29] MEDS: RT-ALBUTEROL SULF 2.5 MG/3 ML PRE-MIX VIAL INH SCH ×4 (07:07→19:06)
[2018-11-29] MEDS: SENNA W/DOCUSATE (SENOKOT S) TABLET PO SCH (09:00)
--- NOTE | 2018-11-29 09:08 | Pulmonary Progress Note ---
Subjective Time Seen by a Provider: 09:08 Subjective/Events-last exam No complications noted. Sepsis Event Evaluation Height, Weight, BMI Height: 4'11.00" Weight: 114lbs. 4.0oz. [id number]; 21.8 BMI Method:Stated Focused Exam Lactate Level 11/26/18 20:15: Lactic Acid Level 1.09 Exam Exam Vital Signs Date Time Temp Pulse Resp B/P (MAP) Pulse Ox O2 Delivery O2 Flow Rate FiO2 11/29/18 07:08 94 Nasal Cannula 1.00 11/29/18 07:00 110 11/29/18 06:30 160/88 (112) 11/29/18 03:50 97.8 90 18 168/92 (117) 95 High Flow N/C 1.50 11/29/18 01:00 101 11/29/18 00:00 99.0 88 20 160/88 (112) 96 Nasal Cannula 1.00 11/28/18 20:09 93 Nasal Cannula 1.00 11/28/18 20:00 96 High Flow N/C 1.00 11/28/18 19:14 80 19 158/90 (112) 93 Nasal Cannula 1.00 11/28/18 19:00 109 11/28/18 15:25 92 Nasal Cannula 1.00 11/28/18 15:00 100.4 109 20 178/93 (121) 92 Nasal Cannula 1.00 11/28/18 14:00 112 23 157/94 (115) 95 Nasal Cannula 1.00 11/28/18 13:04 112 11/28/18 13:00 106 18 162/91 (114) 97 Nasal Cannula 1.00 11/28/18 12:00 96 High Flow N/C 1.00 11/28/18 12:00 114 23 153/99 (117) 91 Nasal Cannula 1.00 11/28/18 12:00 98.7 11/28/18 11:13 Nasal Cannula 1.00 11/28/18 11:04 97 Nasal Cannula 2.00 11/28/18 11:00 93 22 152/89 (110) High Flow N/C 2.00 11/28/18 10:00 94 17 146/88 (107) High Flow N/C 2.00 I & O 11/29/18 07:00 Intake Total 4202.5 ml Output Total 2600 ml Balance 1602.5 ml Height & Weight Height: 4'11.00" Weight: 114lbs. 4.0oz. 51.110704mi; 21.8 BMI Method:Stated General Appearance: No Apparent Distress HEENT: PERRL/EOMI Neck: Full Range of Motion Respiratory: Chest Non Tender, Decreased Breath Sounds Cardiovascular: Regular Rate, Rhythm Capillary Refill: Less Than 3 Seconds Gastrointestinal: normal bowel sounds, soft Extremity: Normal Capillary Refill Neurologic/Psychiatric: Alert, Oriented x3 Skin: Normal Color Lymphatic: No Adenopathy Results Lab Laboratory Tests 11/28/18 03:40 11/28/18 03:45 11/29/18 03:44 Assessment/Plan Assessment/Plan Iatrogenic left PTX after hiatal hernia surgery s/p Chest tube placement L sided pneumonia - with MRSA and candidiasis -Vancomycin, and Eraxis -PTX appears resolved and No air leak in chest tube currently - Dr. Milner is managing chest tube -await official CXR report -Decrease oxygen down -Await Domínguez cultures Atelectasis -S/P bronchoscopy -Easy PAP QID with Duoneb -IS -Increase activity Sinus tach - -monitor Dysphagia - TPN currently - Hypokalemia, hypomag -replace SAM COLLINS DO Nov 29, 2018 09:08
[2018-11-29] MEDS: ENOXAPARIN 40 MG/0.4 ML (LOVENOX) SYR SC SCH (09:11)
[2018-11-29] MEDS: PANTOPRAZOLE 40 MG (PROTONIX) VIAL IV SCH ×2 (09:11→21:07)
[2018-11-29] MEDS: MUPIROCIN 2% OINT 22 GM (BACTROBAN) TUBE TOP SCH ×2 (09:14→21:08)
[2018-11-29] MEDS: ANIDULAFUNGIN INJECTION 100 MG in NS (IVPB) 100 ML IV SCH (09:32)
[2018-11-29] MEDS: POTASSIUM CL 10MEQ/50ML IVPB 50 ML IV SCH ×5 (09:35→18:33)
--- NOTE | 2018-11-29 09:52 | Physical Therapy Daily Note ---
PT Daily Note-Current Subjective Patient reports she is feeling better and agrees to PT. O2 1L NC in place Pain Numeric Pain Scale: 5-Moderate Pain Location: Medial Location Body Site: Abdomen Pain Description: Acute Mental Status Patient Orientation: Normal For Age Attachments: Oxygen, IV Transfers Therapy Code Descriptions/Definitions Functional [place] Measure: 0=Not Assessed/NA 4=Minimal Assistance 1=Total Assistance 5=Supervision or Setup 2=Maximal Assistance 6=Modified [place] 3=Moderate Assistance 7=Complete [place] Therapy Quality Codes: 6 Independent with activity with or without an assistive device 5 Patient requires set up or clean up by helper. Patient completes activity by themselves 4 Supervision or touching assist (CGA). [place] provide cues , steadying assist 3 The helper provides less than half the effort to complete the activity 2 The helper provides more than half the effort to complete the activity 1 Dependent. The helper does all the effort to complete an activity 7 Patient refused to complete or attempt activity 9 The patient did not perform the activity before the current illness or injury 88 Not attempted due to Medical conditions or safety concerns Transfers (B, C, W/C) (FIM): 7 Scootin Rollin Supine to/from Sit: 7 Sit to/from Stand: 7 Bed to/from Chair: 7 Weight Bearing Right Lower Extremity: Right Weight Bearing/Tolerated Left Lower Extremity: Left Weight Bearing/Tolerated Gait Training Gait (FIM): 6 Distance (FIM): 3=150 ft Distance: 30' x 1/225' x 1 Gait Level of Assist: 6 Gait Assistive Device: FWW patient ambulated independently x 30' with slow, steady gait sequence/ambulate with FWW 225' modified independent with steady gait sequence and use of FWW for energy conservation only Exercises Seated Therapy Exercises: Ankle pumps, Long arc quads, Hip flexion Seated Reps: 20 (PT instructed patient to perform PRN to increase functional mobility) Assessment Patient tolerated treatment well and is improving with treatment plan. Patient continues to decline food per her report. PT Short Term Goals Short Term Goals Time Frame: Dec 05, 2018 Transfers (B,C,W/C) (FIM): 5 Gait (FIM): 5 Gait Distance Comment: 150' Gait Level of Assist: 5 Gait Assistive Device: FWW PT Plan Treatment/Plan Treatment Plan: Continue Plan of Care Treatment Plan: Bed Mobility, Education, Functional Activity April, Functional Strength, Gait, Safety, Therapeutic Exercise, Transfers Treatment Duration: Dec 05, 2018 Frequency: 6 times per week Estimated Hrs Per Day: .25 hour per day (15-30') Patient and/or Family Agrees t: Yes Time/GCodes Time In: 901 Time Out: 913 Total Billed Treatment Time: 12 Total Billed Treatment 1 visit FA 12 min CONNOR HARPER PT Nov 29, 2018 09:52
[2018-11-29 09:59] LABS: ALBUMIN 2.5 GM/DL (3.2-4.5); BILIRUBIN,DIRECT 0.2 MG/DL (0.0-0.3); BILIRUBIN,INDIRECT 0.1 MG/DL; BILIRUBIN,TOTAL 0.3 MG/DL (0.1-1.0); TOTAL PROTEIN 5.7 GM/DL (6.4-8.2)
[2018-11-29] MEDS: MAGNESIUM 1 GM/100 ML IVPB 100 ML IV SCH ×2 (11:13→12:13)
[2018-11-29] MEDS ORDERED: TROUGH ORDER-PHARMACY XX NR (12:00)
--- NOTE | 2018-11-29 12:04 | Occupational Ther Daily Note ---
OT Current Status-Daily Note Subjective Pt seen in room, up in bed, agreeable to OT. Pain noted in L chest during one exercise and exercise modified. Appearance Alert, cooperative Mental Status/Objective Therapy Code Descriptions/Definitions Functional Keavy Measure: 0=Not Assessed/NA 4=Minimal Assistance 1=Total Assistance 5=Supervision or Setup 2=Maximal Assistance 6=Modified Keavy 3=Moderate Assistance 7=Complete Keavy Other Treatment Pt and nursing reported that she is able to manage toileting with one person to assist with IVs. Pt mentioned that she gets very fatigued, though. Pt educ two different exercises with yellow theraband (gentle resistance), to strengthen arms for ADLs and to increase activity tolerance. Pt did 10 reps shoulder stretch (horiz abd), struggling with last two reps and with shaking observed. Able to do only 8 elbow extensions with R UE but reported pain from chest tube when doing ex with L UE. Loosening the band helped some but still hurt. Pt able to do motion without theraband and encouraged to do it on her own to help increase UE strength and mobility. Pt encouraged to do theraband on her own as well, as she is able to tolerate. Pt left up in bed, all needs met. Education OT Patient Education: Exercise program, Progress toward Goal/Update tx plan, Purpose of tx/functional activities Teaching Recipient: Patient Teaching Methods: Demonstration, Discussion Response to Teaching: Verbalize Understanding, Return Demonstration OT Short Term Goals Short Term Goals Time Frame: Dec 05, 2018 Eating(FIM): 5 Grooming(FIM): 4 Bathing(FIM): 4 Upper Body Dressing(FIM): 5 Lower Body Dressing(FIM): 4 Toileting(FIM): 4 Transfers (B,C,W/C) (FIM): 5 Toilet/Commode Transfer(FIM): 5 Additional Short Term Goals: 1-Demonstrate ADL Tasks, 2-Verbalize Understanding , 3-ImproveStrength/April 1=Demonstrate adherence to instructed precautions during ADL tasks. 2=Patient will verbalize/demonstrate understanding of assistive devices/ modifications for ADL. 3=Patient will improve strength/tolerance for activity to enable patient to perform ADL's. OT Director Of Development And Marketing Goals Director Of Development And Marketing Goals Time Frame: Dec 12, 2018 Eating (FIM): 6 Grooming(FIM): 6 Bathing(FIM): 5 Upper Body Dressing(FIM): 6 Lower Body Dressing(FIM): 6 Toileting(FIM): 6 Transfers (B,C,W/C) (FIM): 6 Toilet/Commode Transfer(FIM): 6 Shower Transfer(FIM): 5 Additional Goals: 1-Demonstrate ADL Tasks, 2-Verbalize Understanding, 3- ImproveStrength/April 1=Demonstrate adherence to instructed precautions during ADL tasks. 2=Patient will verbalize/demonstrate understanding of assistive devices/ modifications for ADL. 3=Patient will improve strength/tolerance for activity to enable patient to perform ADL's. OT Education/Plan Discharge Recommendations Plan/Recommendations: Continue POC Treatment Plan/Plan of Care Patient would benefit from OT for education, treatment and training to promote independence in ADL's, mobility, safety and/or upper extremity function for ADL' s. Plan of Care: ADL Retraining, Functional Mobility, UE Funct Exercise/Act Treatment Duration: Dec 12, 2018 Frequency: 5 times per week Estimated Hrs Per Day: .25 hour per day Agreement: Yes Rehab Potential: Fair Time/GCodes Start Time: 11:29 Stop Time: 11:44 Total Time Billed (hr/min): 15 Billed Treatment Time visit, 15 minutes exercise LOU KNOWLES OT Nov 29, 2018 12:04
--- NOTE | 2018-11-29 13:03 | NUR ---
ARU NOTE: SOPHIA Blanchard awaits authorization from [facility] for patient to admit to ARU. At this time, the authorization remains in pending status. PT reports patient is progressing, but remains weak. Addendum: 11/29/18 at 1554 by GITA ESCOBAR SS [facility] approved ARU request. Patient can admit tomorrow. SW, Dr. Rhoades and Dr. Woodard notified, they are agreeable.
--- NOTE | 2018-11-29 13:55 | NUR ---
TPN: LIPIDS ADDED TO TPN, TPN AT 52 ML/HR PROVIDING 1180 KCAL WITH 50 GM PROTEIN. CALCULATED NEEDS AR [id number] KCAL WITH 55-65 GM PROTEIN. POTASSIUM AND MAGNESIUM REPLACED AND ADJUSTED IN TPN.
--- NOTE | 2018-11-29 14:17 | Diagnostic Imaging Report ---
INDICATION: Pneumonia, follow-up. TIME OF EXAM: 01:57 p.m. Correlation is made with prior study from 11/27/2018. FINDINGS: Left basilar infiltrate persists and shows no real change apart from some perhaps minimal improved aeration in left cod-fk-hztdl lung field. Right lung is stable. There may be a small amount of pleural fluid on the left. No pneumothorax is seen. Left upper extremity PICC line remains in place. IMPRESSION: Left-sided infiltrate showing minimal improvement in left dks-ww-[id number] lung field since two days earlier. Continued follow-up is recommended. Dictated by: Dictated on workstation # [id number]
--- NOTE | 2018-11-29 16:54 | NUR ---
CM/SS. Updated patient about acceptance to IRF and insurance approval to access benefits. Patient understands she will transfer to the unit in the a.m. and is in agreement to this next step in her care plan.
[2018-11-29] MEDS ORDERED: [UNRECOGNIZED DRUG - OTHER] IV SCH ×11 (17:00)
[2018-11-29] MEDS ORDERED: SODIUM CHLORIDE IV SCH ×11 (17:00)
[2018-11-29] MEDS ORDERED: SODIUM ACETATE IV SCH ×11 (17:00)
--- NOTE | 2018-11-29 18:03 | Progress Note (SOAP) ---
Subjective Date Seen by a Provider: Nov 29, 2018 Time Seen by a Provider: 17:30 Subjective/Events-last exam doing better today. less dysphagia and able to take clears without much effort. respiratory status improving as well. Focused Exam Lactate Level 11/26/18 20:15: Lactic Acid Level 1.09 Objective Exam Vital Signs Date Time Temp Pulse Resp B/P (MAP) Pulse Ox O2 Delivery O2 Flow Rate FiO2 11/29/18 16:00 98.9 100 22 162/96 (118) 95 Room Air 11/29/18 14:04 91 Room Air 11/29/18 13:00 103 11/29/18 12:00 99.1 113 18 160/90 (113) 93 Room Air 11/29/18 10:57 93 Room Air 11/29/18 08:00 97.8 93 22 149/90 (109) 96 Nasal Cannula 1.00 11/29/18 08:00 96 High Flow N/C 1.00 11/29/18 07:08 94 Nasal Cannula 1.00 11/29/18 07:00 110 11/29/18 06:30 160/88 (112) 11/29/18 03:50 97.8 90 18 168/92 (117) 95 High Flow N/C 1.50 11/29/18 01:00 101 11/29/18 00:00 99.0 88 20 160/88 (112) 96 Nasal Cannula 1.00 11/28/18 20:09 93 Nasal Cannula 1.00 11/28/18 20:00 96 High Flow N/C 1.00 11/28/18 19:14 80 19 158/90 (112) 93 Nasal Cannula 1.00 11/28/18 19:00 109 I & O 11/29/18 07:00 Intake Total 4202.5 ml Output Total 2600 ml Balance 1602.5 ml Capillary Refill : Less Than 3 Seconds General Appearance: No Apparent Distress HEENT: PERRL/EOMI Neck: Full Range of Motion Respiratory: Chest Non Tender, Normal Breath Sounds, Decreased Breath Sounds Cardiovascular: Regular Rate, Rhythm Gastrointestinal: normal bowel sounds, non tender, soft Extremity: Normal Capillary Refill Neurologic/Psychiatric: Alert, Oriented x3 Skin: Normal Color Lymphatic: No Adenopathy Results Lab Laboratory Tests 11/28/18 20:00: Vancomycin Level Trough 7.2L 11/29/18 03:44: White Blood Count 8.9, Red Blood Count 3.57L, Hemoglobin 10.5L, Hematocrit 32L, Mean Corpuscular Volume 91, Mean Corpuscular Hemoglobin 29, Mean Corpuscular Hemoglobin Concent 33, Red Cell Distribution Width 12.8, Platelet Count 392, Mean Platelet Volume 8.6, Neutrophils (%) (Auto) 74, Lymphocytes (%) (Auto) 11L , Monocytes (%) (Auto) 10, Eosinophils (%) (Auto) 6, Basophils (%) (Auto) 0, Neutrophils # (Auto) 6.5, Lymphocytes # (Auto) 1.0, Monocytes # (Auto) 0.9, Eosinophils # (Auto) 0.5H, Basophils # (Auto) 0.0, Sodium Level 137, Potassium Level 3.3L, Chloride Level 103, Carbon Dioxide Level 25, Anion Gap 9, Blood Urea Nitrogen 5L, Creatinine 0.48L, Estimat Glomerular Filtration Rate > 60, BUN /Creatinine Ratio 10, Glucose Level 123H, Calcium Level 8.2L, Phosphorus Level 3.2, Magnesium Level 1.7L, Total Bilirubin 0.3, Direct Bilirubin 0.2, Indirect Bilirubin 0.1, Aspartate Amino Transf (AST/SGOT) 34, Alanine Aminotransferase ( ALT/SGPT) 69H, Alkaline Phosphatase 213H, Total Protein 5.7L, Albumin 2.5L 11/29/18 12:39: Vancomycin Level Trough 11.4 Microbiology 11/26/18 Blood Culture - Preliminary, Resulted No growth 11/27/18 MRSA Screen - Final, Complete MRSA not isolated 11/23/18 Urine Culture - Final, Complete NO GROWTH Assessment/Plan Assessment/Plan Assess & Plan/Chief Complaint dyshagia s/p HH repair with pneumonia. slowly improving with intake. continue TPN for now. continue abx and antifungal for pneumonia. slowly advance diet as tolerated. Clinical Quality Measures DVT/VTE Risk/Contraindication: Risk Factor Score Per Nursin RFS Level Per Nursing on Admit: 3=High TAI SANCHEZ MD Nov 29, 2018 18:03
[2018-11-29] MEDS: VANCOMYCIN 1 GM/NS 250 ML IVPB IV SCH ×2 (21:07)
[2018-11-30] MEDS: morphine INJ 4 MG/ML 1 ML (VIAL/SYRINGE) IVP PRN ×4 (00:13→09:11)
[2018-11-30] MEDS: CATHETER FLUSH 10 ML SYR IV SCH (03:53)
[2018-11-30] MEDS: VANCOMYCIN 1 GM/NS 250 ML IVPB IV SCH ×2 (03:53)
[2018-11-30] MEDS: LACTATED RINGERS 1,000 ML IV SCH (03:54)
[2018-11-30 04:00] VITALS: BP 167/98
[2018-11-30 05:52] LABS: BASOPHILS # (AUTO) 0.1 10^3/uL (0.0-0.1); BASOPHILS % (AUTO) 1 % (0-10); EOSINOPHILS # (AUTO) 0.5 10^3/uL (0.0-0.3); EOSINOPHILS % (AUTO) 5 % (0-10); HEMATOCRIT 33 % (35-52); HEMOGLOBIN 10.8 G/DL (11.5-16.0); LYMPHOCYTES # (AUTO) 1.2 X 10^3 (1.0-4.0); LYMPHOCYTES % (AUTO) 13 % (12-44); MEAN CORPUSCULAR HEMOGLOBIN 29 PG (25-34); MEAN CORPUSCULAR HGB CONC 33 G/DL (32-36); MEAN CORPUSCULAR VOLUME 89 FL (80-99); MEAN PLATELET VOLUME 8.4 FL (7.4-10.4); MONOCYTES % (AUTO) 11 % (0-12); NEUTROPHILS # (AUTO) 6.9 X 10^3 (1.8-7.8); NEUTROPHILS % (AUTO) 71 % (42-75); PLATELET COUNT 491 10^3/uL (130-400); RED CELL DISTRIBUTION WIDTH 13.2 % (10.0-14.5); WHITE BLOOD COUNT 9.8 10^3/uL (4.3-11.0)
[2018-11-30] MEDS: LACTOBACILLUS ACIDOPHILUS (PROBIOTIC) CAPSULE PO SCH (05:53)
[2018-11-30 06:16] LABS: ALANINE AMINOTRANSFERASE 69 U/L (0-55); ALBUMIN 2.6 GM/DL (3.2-4.5); ALKALINE PHOSPHATASE 228 U/L (40-136); BILIRUBIN,TOTAL 0.3 MG/DL (0.1-1.0); BUN/CREATININE RATIO 10; CALCIUM 8.5 MG/DL (8.5-10.1); CARBON DIOXIDE 21 MMOL/L (21-32); CHLORIDE 105 MMOL/L (98-107); CREATININE SERUM 0.52 MG/DL (0.60-1.30); GFR ESTIMATED > 60; GLUCOSE 126 MG/DL (70-105); MAGNESIUM 1.9 MG/DL (1.8-2.4); POTASSIUM 4.3 MMOL/L (3.6-5.0); SODIUM 135 MMOL/L (135-145); TOTAL PROTEIN 6.1 GM/DL (6.4-8.2)
[2018-11-30 08:00] VITALS: BP 165/86
[2018-11-30] MEDS: RT-ALBUTEROL SULF 2.5 MG/3 ML PRE-MIX VIAL INH SCH ×2 (08:08→10:59)
[2018-11-30] MEDS: PANTOPRAZOLE 40 MG (PROTONIX) VIAL IV SCH (09:10)
[2018-11-30] MEDS: ENOXAPARIN 40 MG/0.4 ML (LOVENOX) SYR SC SCH (09:11)
[2018-11-30] MEDS: SENNA W/DOCUSATE (SENOKOT S) TABLET PO SCH ×2 (09:12→09:17)
[2018-11-30] MEDS: fluCOnazole (DIFLUCAN) 100 MG TAB PO SCH ×2 (09:12→09:17)
[2018-11-30] MEDS: MUPIROCIN 2% OINT 22 GM (BACTROBAN) TUBE TOP SCH (09:12)
--- NOTE | 2018-11-30 09:57 | Pulmonary Progress Note ---
Subjective Time Seen by a Provider: 09:56 Subjective/Events-last exam Pt appear to be improving. NO complications noted Sepsis Event Evaluation Height, Weight, BMI Height: 4'11.00" Weight: 117lbs. 0.0oz. 53.883924vk; 21.8 BMI Method:Stated Exam Exam Vital Signs Date Time Temp Pulse Resp B/P (MAP) Pulse Ox O2 Delivery O2 Flow Rate FiO2 11/30/18 08:09 93 Room Air 11/30/18 04:00 97.8 99 18 167/98 (121) 95 Room Air 11/29/18 23:33 98.6 111 20 170/91 (117) 94 Room Air 11/29/18 20:00 98.8 103 20 159/91 (113) 95 Room Air 11/29/18 19:50 101 11/29/18 19:06 92 Room Air 11/29/18 16:00 98.9 100 22 162/96 (118) 95 Room Air 11/29/18 14:04 91 Room Air 11/29/18 13:00 103 11/29/18 12:00 99.1 113 18 160/90 (113) 93 Room Air 11/29/18 10:57 93 Room Air I & O 11/30/18 07:00 Intake Total 4262.5 ml Output Total 1950 ml Balance 2312.5 ml Height & Weight Height: 4'11.00" Weight: 117lbs. 0.0oz. 53.688583dx; 21.8 BMI Method:Stated General Appearance: No Apparent Distress HEENT: PERRL/EOMI Neck: Full Range of Motion Respiratory: Chest Non Tender, Normal Breath Sounds, Decreased Breath Sounds Cardiovascular: Regular Rate, Rhythm Capillary Refill: Less Than 3 Seconds Gastrointestinal: normal bowel sounds, non tender, soft Extremity: Normal Capillary Refill Neurologic/Psychiatric: Alert, Oriented x3 Skin: Normal Color Lymphatic: No Adenopathy Results Lab Laboratory Tests 11/29/18 03:44 11/30/18 05:16 Assessment/Plan Assessment/Plan Iatrogenic left PTX after hiatal hernia surgery s/p Chest tube placement L sided pneumonia - with MRSA and candidiasis -Vancomycin, and Eraxis -Await Domínguez cultures Atelectasis -S/P bronchoscopy -Easy PAP QID with Duoneb -IS -Increase activity Dysphagia - TPN currently - SAM COLLINS DO Nov 30, 2018 09:57
--- NOTE | 2018-11-30 10:08 | Progress Note-Hospitalist ---
Subjective HPI/CC On Admission Date Seen by Provider: Nov 30, 2018 Time Seen by Provider: 10:05 Pt is a 58yoCF with a PMH of hiatal hernia s/p repair on 11/14 who was admitted for left sided pneumothorax and bilateral pneumonia. She states she had surgery in [place] on 11/14 and did not do well afterwards. She felt weak and very short of breath. Per ER note on presentation she had subcutaneous emphysema and underwent CTA which revealed the large pneumothorax. Chest Tube was placed in the ER by Dr Milner that evening. Chest tube has since been discontinued on . She underwent bronchoscopy with Dr Rouse and cultures from BAL grew MRSA and jovita. She is currently being treated with Vancomycin and Eraxis. Her only complaint to me today is some shoulder pain on the left side. She is quite hypertensive and denies any history of high blood pressure. She states she has been getting up to chair but has not really ambulated otherwise. Subjective/Events-last exam Pt reports ready for DC to rehab. No complaints or concerns. Objective Exam Vital Signs Vital Signs Date Time Temp Pulse Resp B/P (MAP) Pulse Ox O2 Delivery O2 Flow Rate FiO2 11/30/18 08:09 93 Room Air 11/30/18 04:00 97.8 99 18 167/98 (121) 11/29/18 08:00 1.00 Capillary Refill : Less Than 3 Seconds General Appearance: No Apparent Distress HEENT: PERRL/EOMI Respiratory: Lungs Clear, Normal Breath Sounds Cardiovascular: Regular Rate, Rhythm, No Murmur Neurologic/Psychiatric: Alert, Oriented x3, Other (flat affect) Skin: Normal Color Lymphatic: No Adenopathy Results/Procedures Lab Laboratory Tests 11/30/18 05:16 Patient resulted labs reviewed. Assessment/Plan Assessment and Plan Assess & Plan/Chief Complaint Pneumothorax Diagnosis/Problems Diagnosis/Problems (1) Elevated blood pressure reading Assessment & Plan: No history of HTN Started on amlodipine as remains high (2) MRSA pneumonia Assessment & Plan: Continue on Vanc Pulm consulted, appreciate recs Qualifiers: Laterality: left Lung location: unspecified part of lung Qualified Codes : J15.212 - Pneumonia due to methicillin resistant Staphylococcus aureus (3) Pneumothorax, left Status: Acute Assessment & Plan: Management per Dr Milner s/p Chest Tube (4) Paraesophageal hiatal hernia Status: Acute Assessment & Plan: s/p fundoplication in [place] Continue PPI Management per primary (5) Debility Assessment & Plan: DC to IRU today (6) Protein-energy malnutrition Assessment & Plan: Prealbumin <3 Albumin 2.4 today Continue on TPN Qualifiers: Protein-calorie malnutrition severity: moderate Qualified Codes: E44.0 - Moderate protein-calorie malnutrition Clinical Quality Measures DVT/VTE Risk/Contraindication: Risk Factor Score Per Nursin RFS Level Per Nursing on Admit: 3=High MALA BLAS MD Nov 30, 2018 10:08
[2018-11-30] MEDS ORDERED: amLODIPine 5 MG (NORVASC) TAB PO NR (10:17)
[2018-11-30] MEDS ORDERED: TROUGH ORDER-PHARMACY XX NR (12:00)
[2018-11-30] MEDS ORDERED: GABAPENTIN 300 MG (NEURONTIN) CAP PO SCH (13:00)
[2018-11-30] MEDS ORDERED: GABAPENTIN 100 MG (NEURONTIN) CAP PO SCH (13:00)
[2018-11-30] MEDS ORDERED: SODIUM CHLORIDE IV SCH ×22 (17:00)
[2018-11-30] MEDS ORDERED: [UNRECOGNIZED DRUG - OTHER] IV SCH ×22 (17:00)
[2018-11-30] MEDS ORDERED: SODIUM ACETATE IV SCH ×22 (17:00)
[2018-11-30] MEDS ORDERED: NON-FORMULARY MEDICATION 1 EA EA (Budesonide/Formoterol Fumarate (Symbicort 160-4.5 Mcg In IH SCH (21:00)
[2018-12-01] MEDS ORDERED: amLODIPine 5 MG (NORVASC) TAB PO SCH (09:00)
== END 2018-11-30 11:20 | DRG 199 ==
LOC: EDUNIT# 14:38 → ER 14:42 → ICU 19:05 → 4TH 11-28 15:00
PROVIDERS: ADMIT Surgery; ATTEND Surgery
PROC: 0W9B30Z Drainage of Left Pleural Cavity with Drainage Device, Percutaneous Approach (ICD-10-PCS; principal; 2018-11-23)
PROC: 0BCB8ZZ Extirpation of Matter from Left Lower Lobe Bronchus, Via Natural or Artificial Opening Endoscopic (ICD-10-PCS; 2018-11-25)
PROC: 0B9B8ZX Drainage of Left Lower Lobe Bronchus, Via Natural or Artificial Opening Endoscopic, Diagnostic (ICD-10-PCS; 2018-11-25)
DX: J93.9 Pneumothorax, unspecified (principal); J15.212 Pneumonia due to Methicillin resistant Staphylococcus aureus; J98.11 Atelectasis; E44.0 Moderate protein-calorie malnutrition; J98.2 Interstitial emphysema; J45.909 Unspecified asthma, uncomplicated; J98.09 Other diseases of bronchus, not elsewhere classified; R03.0 Elevated blood-pressure reading, without diagnosis of hypertension; R13.10 Dysphagia, unspecified; R00.0 Tachycardia, unspecified; E83.39 Other disorders of phosphorus metabolism; E87.6 Hypokalemia; K21.9 Gastro-esophageal reflux disease without esophagitis
CPT/HCPCS: 32551; 36415; 36569; 71045; 71260; 71275; 74176; 74220; 76937; 80048; 80053; 80076; 80202; 81000; 82805; 83605; 83735; 83880; 84100; 84134; 84478; 84484; 85007; 85025; 85027; 85610; 85730; 87015; 87040; 87070; 87077; 87081; 87088; 87101; 87116; 87186; 87205; 87206; 87804; 93005; 93041; 94640; 94664; 94760; 96361; 96365; 96375; 99291

== ENCOUNTER 2018-11-30 05:33 | Inpatient (IN) | payer BC ==
[~2018-11-30] VITALS: Ht 149.9 cm; Wt 47.0 kg
--- NOTE | 2018-11-30 02:10 | NUR ---
BILL BOARD POSTER attempted to complete initial assessment; however, patient was extremely fatigued from therapies and request BILL BOARD POSTER to return on Monday. Addendum: 12/03/18 at 1509 by GITA ESCOBAR SS BILL BOARD POSTER received notification from PT that patient is experiencing challenges tolerating therapy due to fatigue and decreased endurance. BILL BOARD POSTER contacted patient's insurance provider to request 01/04, insurance approved this request. Therapy and PD updated.
[~2018-11-30 05:33] MED LIST changes: +HYDR118S10 PO; +VITA1CAP PO
--- NOTE | 2018-11-30 11:25 | NUR ---
Pt admitted to room 230, with an admitting diagnosis of Weakness/Debility S/P Pneumonia from 4th medical floor, via w/c, accompanied by RN, PCT, PT, & daughter. HERBERT XAVIER introduced to surroundings, call light, bed controls, phone, TV, temperature control, lights, meal times, smoking policy, visitor policy, side rail policy, bathrooms and showers. Patient Rights given to patient in the handbook. HERBERT XAVIER acknowledges understanding that [facility] is not responsible for the loss or damage to any personal effects or valuables that are kept in the patients posession during their hospitalization. The following Patient Care Plans were discussed with the pt: Discharge Planning, Impaired Mobility, Self Care Deficit, Potential for fall/injury, Alteration in Respiratory function. HERBERT XAVIER verbalizes understanding of Interdisciplinary Patient Education. Patient and/or family were informed about the Rapid Response Team and its purpose. Patient received Patient Rights Booklet, which includes Privacy Act Statement and Data Collection Information Summary.
--- NOTE | 2018-11-30 11:29 | NUR ---
REVIEWED MEDICATIONS THEY WERE REPORTED UPON ADMISSION TO ICU
--- OUTSIDE RECORDS SUMMARY | 2018-11-30 11:41 | XMS REPORT | Continuity of Care Document ---
Author Author [facility] Organization [facility] Address Unknown Phone Unavailable Allergies Active Description Code Type Severity Reaction Onset Reported/Identified Relationship to Patient Clinical Status Yes seasonal seasonal Unknown N/A 11/28/2014 Yes No Known Drug Allergies [id number] Drug Allergy Unknown N/A 06/13/2016 Yes codeine [id number] Drug Allergy Unknown N/A 09/03/2018 Yes codeine NKMA N/A GI issues 09/24/2018 Yes codeine NKMA N/A GI issues 09/24/2018 Medications Medication Packaging Start Date Stop Date Route Dosage Sig gabapentin(gabapentin 400 mg oral capsule) 1 caps 09/24/2018 Oral 400 mg 400 mg=1 caps, Oral, TID, 0 Refill(s) oxycodone-acetaminophen(oxycodone-acetaminophen 5 mg-300 mg oral tablet) 09/24/2018 Oral 1-2 tabs, Oral, q4hr, PRN: as needed for pain, 0 Refill(s) celecoxib(CeleBREX) 09/24/2018 Oral Oral, BID, 0 Refill(s) omeprazole(omeprazole 20 mg oral delayed release capsule) 1 caps 09/24/2018 Oral 20 mg 20 mg=1 caps, Oral, Daily, 0 Refill(s) budesonide-formoterol(Symbicort) 09/24/2018 Inhalation Inhalation, BID, 0 Refill(s) sucralfate(sucralfate 1 g oral tablet) 1 tabs 09/24/2018 Oral 1 g 1 g=1 tabs, Oral, QIDACHS, 0 Refill(s) HYDROcodone-acetaminophen(HYDROcodone-acetaminophen 5 mg-325 mg oral tablet) 1 tabs 11/14/2018 Oral 1 tabs, Oral, q6hr, 0 Refill(s ) Lactated Ringers Injection(Lactated Ringers Injection 1,000 mL) 1,000 mL 11/14/2018 11/14/2018 IV 10 mL/hr, IV midazolam(Versed) 2 mL 11/14/2018 11/14/2018 IV Push 2 mg 2 mg=2 mL, IV Push, Once gabapentin(gabapentin) 2 caps 11/1411/14/2018 Oral 600 mg 600 mg=2 caps, Oral, Once famotidine(Pepcid) 2 mL 11/14/2018 11/14/2018 IV Push 20 mg 20 mg=2 mL, IV Push, Once acetaminophen(acetaminophen) 2 tabs 11/14/2018 11/14/2018 Oral 650 mg 650 mg=2 tabs, Oral, Once fentaNYL(fentaNYL) 1 mL 11/14/2018 11/14/2018 IV Push 50 mcg 50 mcg=1 mL, IV Push, q15min, PRN: Pain Lactated Ringers Injection(Lactated Ringers Injection 1,000 mL) 1,000 mL 11/14/2018 11/15/2018 IV 125 mL/hr, IV ondansetron(Zofran) 2 mL 201811/16/2018 IV 4 mg 4 mg=2 mL, IV, q6hr, PRN: Nausea or Vomiting enoxaparin(Lovenox) 0.4 mL 201811/16/2018 SubCutaneous 40 mg 40 mg=0.4 mL, SubCutaneous, Daily famotidine(Pepcid) 2 mL 11/14/2018 11/16/2018 IV 20 mg 20 mg=2 mL, IV, BID acetaminophen(Ofirmev) 100 mL 11/1411/14/2018 IV Piggyback 1,000 mg 1,000 er=026 mL, 400 mL/hr, IV Piggyback, q6hr HYDROmorphone(Dilaudid range dose) 1 mL 11/14/2018 11/16/2018 IV Push 1 mg 1 mg=1 mL, IV Push, q2hr, PRN: Pain HYDROcodone-acetaminophen(Lortab Elixir 5 mg-216 mg/10 mL oral elixir range dose) 20 mL 11/15/2018 11/16/2018 Oral 20 mL, Oral, q6hr , PRN: Pain Moderate (4-6) hydrALAZINE(hydrALAZINE) 0.5 mL 11/16/2018 IV Push 10 mg 10 mg=0.5 mL, IV Push, q4hr, PRN: Hypertension/High Blood Pressure Lactated Ringers Injection(Lactated Ringers Injection 1,000 mL) 1,000 mL 11/15/2018 11/16/2018 IV 100 mL/hr, IV labetalol(labetalol) 2 mL 201811/15/2018 IV Push 10 mg 10 mg=2 mL, IV Push, Once, PRN: Hypertension/High Blood Pressure budesonide-formoterol(Symbicort 80 mcg-4.5 mcg/inh inhalation aerosol) 2 puffs 11/16/20182018 Inhalation 2 puffs, Inhalation, BID fluticasone-salmeterol(Advair HFA 115 mcg-21 mcg/inh inhalation aerosol) 2 puffs 11/16/20182018 Inhalation 2 puffs, Inhalation, BID ipratropium-albuterol(DuoNeb 0.5 mg-2.5 mg/3 mL inhalation solution ) 3 mL 11/16/2018 11/16/2018 NEB 3 mL, NEB, q2hr (scheduled), PRN: Bronchospasms pantoprazole(Protonix) 1 tabs 11/1611/16/2018 Oral 40 mg 40 mg=1 tabs, Oral, Daily gabapentin(gabapentin) 1 caps 11/1611/16/2018 Oral 400 mg 400 mg=1 caps, Oral, TID celecoxib(CeleBREX) 1 caps 201811/16/2018 Oral 100 mg 100 mg=1 caps, Oral, BID HYDROcodone-acetaminophen(HYDROcodone-acetaminophen 7.5 mg-325 mg/ 15 mL oral solution) 20 mL 11/16/2018 11/23/2018 Oral 20 mL, Oral, q6hr, for 7 days, PRN: Pain Moderate (4-6), 500 mL, 0 Refill(s) Problems Date Dx Coded Attending Type Code [...] Ot K44.9 DIAPHRAGMATIC HERNIA WITHOUT OBSTRUCTION 01/07/2016 DI RILEY, CICI Bowser Ot K44.9 DIAPHRAGMATIC HERNIA WITHOUT OBSTRUCTION 01/07/2016 DI RILEY, CICI Bowser Ot Z01.818 ENCOUNTER FOR OTHER PREPROCEDURAL EXAMIN 01/07/2016 DI RILEY, CICI Bowser Ot Z11.2 ENCOUNTER FOR SCREENING FOR OTHER BACTER 01/08/2016 DI RILEY, CICI Bowser Ot K44.9 DIAPHRAGMATIC HERNIA WITHOUT OBSTRUCTION 01/08/2016 DI RILEY, CICI Bowser Ot Z01.818 ENCOUNTER FOR OTHER PREPROCEDURAL EXAMIN 01/08/2016 DI RILEY, CICI Bowser Ot Z11.2 ENCOUNTER FOR SCREENING FOR OTHER BACTER 01/19/2016 DI RILEY, CICI M Ot K44.0 DIAPHRAGMATIC HERNIA WITH OBSTRUCTION, W 01/19/2016 DI RILEY, CICI M Ot R13.10 DYSPHAGIA, UNSPECIFIED 06/13/2016 DI RILEY, CICI M Ot K43.9 VENTRAL HERNIA WITHOUT OBSTRUCTION OR GA 06/13/2016 DI RILEY, CICI Bowser Ot Z01.818 ENCOUNTER FOR OTHER PREPROCEDURAL EXAMIN 06/14/2016 DI RILEY, CICI Bowser Ot K43.9 VENTRAL HERNIA WITHOUT OBSTRUCTION OR GA 06/14/2016 DI RILEY, CICI Bowser Ot Z01.818 ENCOUNTER FOR OTHER PREPROCEDURAL EXAMIN 06/15/2016 MERARY SERRA CAR INSTALLATIONS SUPERVISOR Ot K42.9 UMBILICAL HERNIA WITHOUT OBSTRUCTION OR 06/17/2016 DI RILEY, CICI Bowser Ot K43.9 VENTRAL HERNIA WITHOUT OBSTRUCTION OR GA 06/19/2016 DI RILEY, CICI Bowser Ot K43.9 VENTRAL HERNIA WITHOUT OBSTRUCTION OR GA 06/19/2016 DI RILEY, CICI Bowser Ot Z01.818 ENCOUNTER FOR OTHER PREPROCEDURAL EXAMIN 06/20/2016 DI RILEY, CICI Bowser Ot K43.9 VENTRAL HERNIA WITHOUT OBSTRUCTION OR GA 06/21/2016 MERARY SERRA CAR INSTALLATIONS SUPERVISOR Ot K42.9 UMBILICAL HERNIA WITHOUT OBSTRUCTION OR 06/23/2016 DI RILEY, CICI Bowser Ot K43.9 VENTRAL HERNIA WITHOUT OBSTRUCTION OR GA 08/24/2016 MERARY SERRA CAR INSTALLATIONS SUPERVISOR Ot K42.9 UMBILICAL HERNIA WITHOUT OBSTRUCTION OR 08/26/2016 MERARY SERRA CAR INSTALLATIONS SUPERVISOR Ot K42.9 UMBILICAL HERNIA WITHOUT OBSTRUCTION OR 08/31/2016 NICO PEREZ CAR INSTALLATIONS SUPERVISOR Ot J44.9 CHRONIC OBSTRUCTIVE PULMONARY DISEASE, U 08/31/2016 PEREZ NICO L CAR INSTALLATIONS SUPERVISOR Ot J45.909 UNSPECIFIED ASTHMA, UNCOMPLICATED 08/31/2016 PEREZ NICO L CAR INSTALLATIONS SUPERVISOR Ot Z79.899 OTHER HOUSE MANAGER (CURRENT) DRUG THERAPY 09/14/2016 PEREZ NICO L CAR INSTALLATIONS SUPERVISOR Ot J44.9 CHRONIC OBSTRUCTIVE PULMONARY DISEASE, U 09/14/2016 PEREZ, NICO L CAR INSTALLATIONS SUPERVISOR Ot J45.909 UNSPECIFIED ASTHMA, UNCOMPLICATED 09/14/2016 PEREZ, NICO L CAR INSTALLATIONS SUPERVISOR Ot Z79.899 OTHER PENITENTIARY (CURRENT) DRUG THERAPY 11/14/2016 MERARY SERRA CAR INSTALLATIONS SUPERVISOR Ot K42.9 UMBILICAL HERNIA WITHOUT OBSTRUCTION OR 11/14/2016 CHRISTOMERI L CAR INSTALLATIONS SUPERVISOR Ot J44.9 CHRONIC OBSTRUCTIVE PULMONARY DISEASE, U 11/14/2016 CHRIS NICO L CAR INSTALLATIONS SUPERVISOR Ot J45.909 UNSPECIFIED ASTHMA, UNCOMPLICATED 11/14/2016 PEREZTOMERI L CAR INSTALLATIONS SUPERVISOR Ot Z79.899 OTHER PENITENTIARY (CURRENT) DRUG THERAPY 11/14/2016 MERARY SERRA CAR INSTALLATIONS SUPERVISOR Ot K42.9 UMBILICAL HERNIA WITHOUT OBSTRUCTION OR 12/21/2016 TOMER PEREZI L CAR INSTALLATIONS SUPERVISOR Ot N63 UNSPECIFIED LUMP IN BREAST 12/21/2016 TOMER PEREZI L CAR INSTALLATIONS SUPERVISOR Ot N64.4 MASTODYNIA 12/21/2016 TOMER PEREZI L CAR INSTALLATIONS SUPERVISOR Ot N63 UNSPECIFIED LUMP IN BREAST 12/21/2016 TOMER PEREZI L CAR INSTALLATIONS SUPERVISOR Ot N64.4 MASTODYNIA 12/30/2016 NICO PEREZ L CAR INSTALLATIONS SUPERVISOR Ot D24.1 BENIGN NEOPLASM OF RIGHT BREAST 01/03/2017 MERARY SERRA CAR INSTALLATIONS SUPERVISOR Ot K42.9 UMBILICAL HERNIA WITHOUT OBSTRUCTION OR 01/03/2017 CHRIS NICO L CAR INSTALLATIONS SUPERVISOR Ot J44.9 CHRONIC OBSTRUCTIVE PULMONARY DISEASE, U 01/03/2017 CHRIS NICO L CAR INSTALLATIONS SUPERVISOR Ot J45.909 UNSPECIFIED ASTHMA, UNCOMPLICATED 01/03/2017 CHRIS NICO L CAR INSTALLATIONS SUPERVISOR Ot Z79.899 OTHER HOUSE MANAGER (CURRENT) DRUG THERAPY 01/03/2017 CHRIS NICO L CAR INSTALLATIONS SUPERVISOR Ot N63 UNSPECIFIED LUMP IN BREAST 01/03/2017 NICO PEREZ L CAR INSTALLATIONS SUPERVISOR Ot N64.4 MASTODYNIA 01/03/2017 NICO PEREZ L CAR INSTALLATIONS SUPERVISOR Ot D24.1 BENIGN NEOPLASM OF RIGHT BREAST 01/03/2017 MERARY SERRA CAR INSTALLATIONS SUPERVISOR Ot K42.9 UMBILICAL HERNIA WITHOUT OBSTRUCTION OR 01/04/2017 TOMER PEREZI L CAR INSTALLATIONS SUPERVISOR Ot D24.1 BENIGN NEOPLASM OF RIGHT BREAST 01/05/2017 NICO PEREZ L CAR INSTALLATIONS SUPERVISOR Ot D24.1 BENIGN NEOPLASM OF RIGHT BREAST 01/06/2017 NICO PEREZ L CAR INSTALLATIONS SUPERVISOR Ot N63 UNSPECIFIED LUMP IN BREAST 01/06/2017 NICO PEREZ L CAR INSTALLATIONS SUPERVISOR Ot N64.4 MASTODYNIA 01/13/2017 NICO PEREZ L CAR INSTALLATIONS SUPERVISOR Ot D24.1 BENIGN NEOPLASM OF RIGHT BREAST 02/02/2017 NICO PEREZ CAR INSTALLATIONS SUPERVISOR Ot D24.1 BENIGN NEOPLASM OF RIGHT BREAST 03/22/2017 PEREZNICO CANO CAR INSTALLATIONS SUPERVISOR Ot D24.1 BENIGN NEOPLASM OF RIGHT BREAST 06/28/2017 NICO PEREZ CAR INSTALLATIONS SUPERVISOR Ot M54.16 RADICULOPATHY, LUMBAR REGION 07/17/2018 CHEVY BANDA MD Ot J45.909 UNSPECIFIED ASTHMA, UNCOMPLICATED 07/17/2018 CHEVY BANDA MD, Ot K21.9 GASTRO-ESOPHAGEAL REFLUX DISEASE WITHOUT 07/17/2018 CHEVY BANDA MD Ot K46.9 UNSPECIFIED ABDOMINAL HERNIA WITHOUT OBS 07/17/2018 CHEVY BANDA MD, Ot K57.30 DVRTCLOS OF LG INT W/O PERFORATION OR AB 07/17/2018 CHEVY BANDA MD, Ot N39.0 URINARY TRACT INFECTION, SITE NOT SPECIF 07/17/2018 CHEVY BANDA MD Ot R10.13 EPIGASTRIC PAIN 07/17/2018 CHEVY BANDA MD Ot Z87.19 PERSONAL HISTORY OF OTHER DISEASES OF 07/17/2018 CHEVY BANDA MD Ot Z90.49 ACQUIRED ABSENCE OF OTHER SPECIFIED PART 07/17/2018 CHEVY BANDA MD Ot Z90.710 ACQUIRED ABSENCE OF BOTH CERVIX AND UTER 07/17/2018 CHEVY BANDA MD Ot Z98.890 OTHER SPECIFIED POSTPROCEDURAL STATES 07/19/2018 CHEVY BANDA MD, Ot J45.909 UNSPECIFIED ASTHMA, UNCOMPLICATED 07/19/2018 CHEVY BANDA MD, Ot K21.9 GASTRO-ESOPHAGEAL REFLUX DISEASE WITHOUT 07/19/2018 CHEVY BANDA MD, Ot K46.9 UNSPECIFIED ABDOMINAL HERNIA WITHOUT OBS 07/19/2018 CHEVY BANDA MD, Ot K57.30 DVRTCLOS OF LG INT W/O PERFORATION OR AB 07/19/2018 CHEVY BANDA MD Ot N39.0 URINARY TRACT INFECTION, SITE NOT SPECIF 07/19/2018 CHEVY BANDA MD Ot R10.13 EPIGASTRIC PAIN 07/19/2018 CHEVY BANDA MD Ot Z87.19 PERSONAL HISTORY OF OTHER DISEASES OF 07/19/2018 SOLO RILEY, CHEVY Torres Ot Z90.49 ACQUIRED ABSENCE OF OTHER SPECIFIED PART 07/19/2018 CHEVY BANDA MD Ot Z90.710 ACQUIRED ABSENCE OF BOTH CERVIX AND UTER 07/19/2018 CHEVY BANDA MD Ot Z98.890 OTHER SPECIFIED POSTPROCEDURAL STATES 07/31/2018 DI RILEY, CICI Bowser Ot Z01.818 ENCOUNTER FOR OTHER PREPROCEDURAL EXAMIN 08/02/2018 MERARY SERRA CAR INSTALLATIONS SUPERVISOR Ot K42.9 UMBILICAL HERNIA WITHOUT OBSTRUCTION OR 08/02/2018 NICO PEREZ CAR INSTALLATIONS SUPERVISOR Ot J44.9 CHRONIC OBSTRUCTIVE PULMONARY DISEASE, U 08/02/2018 NICO PEREZ L CAR INSTALLATIONS SUPERVISOR Ot J45.909 UNSPECIFIED ASTHMA, UNCOMPLICATED 08/02/2018 PEREZNICO CANO L CAR INSTALLATIONS SUPERVISOR Ot Z79.899 OTHER PENITENTIARY (CURRENT) DRUG THERAPY 08/02/2018 TOMER PEREZI L CAR INSTALLATIONS SUPERVISOR Ot N63 UNSPECIFIED LUMP IN BREAST 08/02/2018 TOMER PEREZI L CAR INSTALLATIONS SUPERVISOR Ot N64.4 MASTODYNIA 08/02/2018 NICO PEREZ L CAR INSTALLATIONS SUPERVISOR Ot D24.1 BENIGN NEOPLASM OF RIGHT BREAST 08/02/2018 NICO PEREZ L CAR INSTALLATIONS SUPERVISOR Ot M54.16 RADICULOPATHY, LUMBAR REGION 08/06/2018 DI RILEY, CICI Bowser Ot K44.9 DIAPHRAGMATIC HERNIA WITHOUT OBSTRUCTION 08/06/2018 DI RILEY, CICI Bowser Ot K57.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 08/07/2018 CICI SEVILLA MD Ot K44.9 DIAPHRAGMATIC HERNIA WITHOUT OBSTRUCTION 08/07/2018 CICI SEVILLA MD Ot K57.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 08/15/2018 CICI SEVILLA MD Ot K44.9 DIAPHRAGMATIC HERNIA WITHOUT OBSTRUCTION 08/15/2018 CICI SEVILLA MD Ot K57.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 09/03/2018 MERARY SERRA CAR INSTALLATIONS SUPERVISOR Ot K42.9 UMBILICAL HERNIA WITHOUT OBSTRUCTION OR 09/03/2018 NICO PEREZ L CAR INSTALLATIONS SUPERVISOR Ot J44.9 CHRONIC OBSTRUCTIVE PULMONARY DISEASE, U 09/03/2018 NICO PEREZ L CAR INSTALLATIONS SUPERVISOR Ot J45.909 UNSPECIFIED ASTHMA, UNCOMPLICATED 09/03/2018 NICO PEREZ CAR INSTALLATIONS SUPERVISOR Ot Z79.899 OTHER HOUSE MANAGER (CURRENT) DRUG THERAPY 09/03/2018 NICO PEREZ CAR INSTALLATIONS SUPERVISOR Ot N63 UNSPECIFIED LUMP IN BREAST 09/03/2018 NICO PEREZ CAR INSTALLATIONS SUPERVISOR Ot N64.4 MASTODYNIA 09/03/2018 NICO PEREZ CAR INSTALLATIONS SUPERVISOR Ot D24.1 BENIGN NEOPLASM OF RIGHT BREAST 09/03/2018 NICO PEREZ CAR INSTALLATIONS SUPERVISOR Ot M54.16 RADICULOPATHY, LUMBAR REGION 09/04/2018 ANA RILEY, BRAYDON Browne Ot J45.909 UNSPECIFIED ASTHMA, UNCOMPLICATED 09/04/2018 BRAYDON PEREZ MD Ot K21.9 GASTRO-ESOPHAGEAL REFLUX DISEASE WITHOUT 09/04/2018 BRAYDON PEREZ MD Ot K44.9 DIAPHRAGMATIC HERNIA WITHOUT OBSTRUCTION 09/04/2018 BRAYDON PEREZ MD Ot R10.10 UPPER ABDOMINAL PAIN, UNSPECIFIED 09/04/2018 BRAYDON PEREZ MD T Ot Z87.19 PERSONAL HISTORY OF OTHER DISEASES OF TH 09/04/2018 BRAYDON PEREZ MD Ot Z88.5 ALLERGY STATUS TO NARCOTIC AGENT STATUS 09/04/2018 BRAYDON PEREZ MD Ot Z90.710 ACQUIRED ABSENCE OF BOTH CERVIX AND UTER 09/04/2018 BRAYDON PEREZ MD Ot Z98.890 OTHER SPECIFIED POSTPROCEDURAL STATES 11/21/2018 Justice Kyle Final G89.29 Other chronic pain 11/21/2018 Justice Kyle Final J45.909 Unspecified asthma, uncomplicated 11/21/2018 Justice Kyle Final K21.9 Gastro-esophageal reflux disease without esophagitis 11/21/2018 Justice Kyle Admitting K44.9 Diaphragmatic hernia without obstruction or gangrene 11/21/2018 Justice Kyle Final R00.0 Tachycardia, unspecified 11/21/2018 Justice Kyle Final Z90.49 Acquired absence of other specified parts of digestive tract 11/21/2018 Justice Kyle Final K44.0 Diaphragmatic hernia with obstruction, without gangrene 11/27/2018 DI RILEY, CICI Bowser Ot E83.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 METABOLISM 11/27/2018 DI RILEY, CICI Bowser Ot E87.6 HYPOKALEMIA 11/27/2018 DI RILEY, CICI Bowser Ot J18.9 PNEUMONIA, UNSPECIFIED ORGANISM 11/27/2018 DI RILEY, CICI Bowser Ot J45.909 UNSPECIFIED ASTHMA, UNCOMPLICATED 11/27/2018 DI RILEY, CICI Bowser Ot J95.811 POSTPROCEDURAL PNEUMOTHORAX 11/27/2018 DI RILEY, CICI Bowser Ot J98.09 OTHER DISEASES OF BRONCHUS, NOT ELSEWHER 11/27/2018 CICI SEVILLA MD M Ot J98.11 ATELECTASIS 11/27/2018 CICI SEVILLA MD Ot R00.0 TACHYCARDIA, UNSPECIFIED 11/27/2018 CICI SEVILLA MD Ot R03.0 ELEVATED BLOOD-PRESSURE READING, W/O KATHRYN 11/27/2018 CICI SEVILLA MD Ot R13.10 DYSPHAGIA, UNSPECIFIED 11/27/2018 CICI SEVILLA MD M Ot T81.82XA EMPHYSEMA (SUBCUTANEOUS) RESULTING FROM 11/27/2018 CICI SEVILLA MD Ot E83.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 METABOLISM 11/27/2018 CICI SEVILLA MD Ot E87.6 HYPOKALEMIA 11/27/2018 CICI SEVILLA MD Ot J18.9 PNEUMONIA, UNSPECIFIED ORGANISM 11/27/2018 CICI SEVILLA MD Ot J45.909 UNSPECIFIED ASTHMA, UNCOMPLICATED 11/27/2018 CICI SEVILLA MD Ot J95.811 POSTPROCEDURAL PNEUMOTHORAX 11/27/2018 CICI SEVILLA MD Ot J98.09 OTHER DISEASES OF BRONCHUS, NOT ELSEWHER 11/27/2018 CICI SEVILLA MD M Ot J98.11 ATELECTASIS 11/27/2018 CICI SEVILLA MD Ot R00.0 TACHYCARDIA, UNSPECIFIED 11/27/2018 CICI SEVILLA MD M Ot R03.0 ELEVATED BLOOD-PRESSURE READING, W/O KATHRYN 11/27/2018 CICI SEVILLA MD M Ot R13.10 DYSPHAGIA, UNSPECIFIED 11/27/2018 CICI SEVILLA MD M Ot T81.82XA EMPHYSEMA (SUBCUTANEOUS) RESULTING FROM 11/28/2018 DI RILEY, CICI M Ot E83.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 METABOLISM 11/28/2018 DI RILEY, CICI M Ot E87.6 HYPOKALEMIA 11/28/2018 CICI SEVILLA MD Ot J18.9 PNEUMONIA, UNSPECIFIED ORGANISM 11/28/2018 CICI SEVILLA MD M Ot J45.909 UNSPECIFIED ASTHMA, UNCOMPLICATED 11/28/2018 DI RILEY, CICI M Ot J95.811 POSTPROCEDURAL PNEUMOTHORAX 11/28/2018 CICI SEVILLA MD M Ot J98.09 OTHER DISEASES OF BRONCHUS, NOT ELSEWHER 11/28/2018 CICI SEVILLA MD M Ot J98.11 ATELECTASIS 11/28/2018 CICI SEVILLA MD M Ot R00.0 TACHYCARDIA, UNSPECIFIED 11/28/2018 CICI SEVILLA MD M Ot R03.0 ELEVATED BLOOD-PRESSURE READING, W/O KATHRYN 11/28/2018 CICI SEVILLA MD M Ot R13.10 DYSPHAGIA, UNSPECIFIED 11/28/2018 DI RILEY, CICI M Ot T81.82XA EMPHYSEMA (SUBCUTANEOUS) RESULTING FROM 11/28/2018 DI RILEY, CICI M Ot E83.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 METABOLISM 11/28/2018 CICI SEVILLA MD M Ot E87.6 HYPOKALEMIA 11/28/2018 CICI SEVILLA MD M Ot J18.9 PNEUMONIA, UNSPECIFIED ORGANISM 11/28/2018 CICI SEVILLA MD Ot J45.909 UNSPECIFIED ASTHMA, UNCOMPLICATED 11/28/2018 CICI SEVILLA MD M Ot J93.9 PNEUMOTHORAX, UNSPECIFIED 11/28/2018 DI RILEY, CICI M Ot J98.09 OTHER DISEASES OF BRONCHUS, NOT ELSEWHER 11/28/2018 CICI SEVILLA MD M Ot J98.11 ATELECTASIS 11/28/2018 CICI SEVILLA MD M Ot 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 11/28/2018 CICI SEVILLA MD M Ot R00.0 TACHYCARDIA, UNSPECIFIED 11/28/2018 CICI SEVILLA MD M Ot R03.0 ELEVATED BLOOD-PRESSURE READING, W/O KATHRYN 11/28/2018 CICI SEVILLA MD M Ot R13.10 DYSPHAGIA, UNSPECIFIED 11/29/2018 DI RLIEY, CICI Bowser Ot E83.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 METABOLISM 11/29/2018 DI RILEY, CICI Bowser Ot E87.6 HYPOKALEMIA 11/29/2018 DI RILEY, CICI Bowser Ot J18.9 PNEUMONIA, UNSPECIFIED ORGANISM 11/29/2018 DI RILEY, CICI Bowser Ot J45.909 UNSPECIFIED ASTHMA, UNCOMPLICATED 11/29/2018 DI RILEY, CICI Bowser Ot J93.9 PNEUMOTHORAX, UNSPECIFIED 11/29/2018 DI RILEY, CICI Bowser Ot J98.09 OTHER DISEASES OF BRONCHUS, NOT ELSEWHER 11/29/2018 DI RILEY, CICI Bowser Ot J98.11 ATELECTASIS 11/29/2018 DI RILEY, CICI Bowser Ot 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 11/29/2018 DI RILEY, CICI Bowser Ot R00.0 TACHYCARDIA, UNSPECIFIED 11/29/2018 CICI SEVILLA MD Ot R03.0 ELEVATED BLOOD-PRESSURE READING, W/O KATHRYN 11/29/2018 CICI SEVILLA MD Ot R13.10 DYSPHAGIA, UNSPECIFIED 11/29/2018 DI RILEY, CICI Bowser Ot E83.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 METABOLISM 11/29/2018 DI RILEY, CICI Bowser Ot E87.6 HYPOKALEMIA 11/29/2018 DI RILEY, CICI Bowser Ot J18.9 PNEUMONIA, UNSPECIFIED ORGANISM 11/29/2018 DI RILEY, CICI Bowser Ot J45.909 UNSPECIFIED ASTHMA, UNCOMPLICATED 11/29/2018 DI RILEY, CICI Bowser Ot J93.9 PNEUMOTHORAX, UNSPECIFIED 11/29/2018 DI RILEY, CICI Bowser Ot J98.09 OTHER DISEASES OF BRONCHUS, NOT ELSEWHER 11/29/2018 DI RILEY, CICI Bowser Ot J98.11 ATELECTASIS 11/29/2018 CICI SEVILLA MD Ot 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 11/29/2018 CICI SEVILLA MD Ot R00.0 TACHYCARDIA, UNSPECIFIED 11/29/2018 CICI SEVILLA MD Ot R03.0 ELEVATED BLOOD-PRESSURE READING, W/O KATHRYN 11/29/2018 CICI SEVILLA MD Ot R13.10 DYSPHAGIA, UNSPECIFIED Procedures Code Description Performed By Performed On [id number] SUPPLEMENT R DIAPHRAGM WITH NONAUT SUB, 01/13/2016 [id number] SUPPLEMENT L DIAPHRAGM WITH NONAUT SUB, 01/13/2016 [id number] REPOSITION STOMACH, PERCUTANEOUS ENDOSCO 01/13/2016 [id number] REPOSITION TRANSVERSE COLON, PERC ENDO A 01/13/2016 [id number] 01/13/2016 [id number] RESTRICTION OF ESOPHAGOGASTRIC JUNCTION, 01/13/2016 [id number] REPOSITION PANCREAS, PERCUTANEOUS ENDOSC 01/13/2016 [id number] ROBOTIC ASSISTED PROCEDURE OF TRUNK, PER 01/13/2016 [id number] Robotic Assisted Procedure of Trunk Region, Percutaneous Endoscopic Approac 11/14/2018 [id number] DRAINAGE OF L PLEURAL CAV WITH DRAIN DEV 11/23/2018 Results Test Result Range Methicillin resistant Staphylococcus [...] 07/17/18 09:10 Bacterial urine culture NG NRG Complete blood count (CBC) with automated white blood cell (WBC) differential - 09/03/18 21:30 Blood leukocytes automated count (number/volume) 9.0 10*3/uL 4.3-11.0 Blood erythrocytes automated count (number/volume) 4.63 10*6/uL 4.35-5.85 Venous blood hemoglobin measurement (mass/volume) 14.0 g/dL 11.5-16.0 Blood hematocrit (volume fraction) 42 % 35-52 Automated erythrocyte mean corpuscular volume 90 [foz_us] 80-99 Automated erythrocyte mean corpuscular hemoglobin (mass per erythrocyte) 30 pg 25-34 Automated erythrocyte mean corpuscular hemoglobin concentration measurement ( mass/volume) 34 g/dL 32-36 Automated erythrocyte distribution width ratio 11.9 % 10.0-14.5 Automated blood platelet count (count/volume) 236 10*3/uL 130-400 Automated blood platelet mean volume measurement 8.9 [foz_us] 7.4-10.4 Automated blood neutrophils/100 leukocytes 88 % 42-75 Automated blood lymphocytes/100 leukocytes 9 % 12-44 Blood monocytes/100 leukocytes 3 % 0-12 Automated blood eosinophils/100 leukocytes 0 % 0-10 Automated blood basophils/100 leukocytes 0 % 0-10 Blood neutrophils automated count (number/volume) 7.8 10*3 1.8-7.8 Blood lymphocytes automated count (number/volume) 0.8 10*3 1.0-4.0 Blood monocytes automated count (number/volume) 0.3 10*3 0.0-1.0 Automated eosinophil count 0.0 10*3/uL 0.0-0.3 Automated blood basophil count (count/volume) 0.0 10*3/uL 0.0-0.1 Comprehensive metabolic panel - 09/03/18 21:30 Serum or plasma sodium measurement (moles/volume) 138 mmol/L 135-145 Serum or plasma potassium measurement (moles/volume) 4.8 mmol/L 3.6-5.0 Serum or plasma chloride measurement (moles/volume) 103 mmol/L 98-107 Carbon dioxide 24 mmol/L 21-32 Serum or plasma anion gap determination (moles/volume) 11 mmol/L 5-14 Serum or plasma urea nitrogen measurement (mass/volume) 13 mg/dL 7-18 Serum or plasma creatinine measurement (mass/volume) 0.74 mg/dL 0.60-1.30 Serum or plasma urea nitrogen/creatinine mass ratio 18 NRG Serum or plasma creatinine measurement with calculation of estimated glomerular filtration rate > NRG Serum or plasma glucose measurement (mass/volume) 134 mg/dL 70-105 Serum or plasma calcium measurement (mass/volume) 9.2 mg/dL 8.5-10.1 Serum or plasma total bilirubin measurement (mass/volume) 0.5 mg/dL 0.1-1.0 Serum or plasma alkaline phosphatase measurement (enzymatic activity/volume) 53 U/L 40-136 Serum or plasma aspartate aminotransferase measurement (enzymatic activity/ volume) 23 U/L 5-34 Serum or plasma alanine aminotransferase measurement (enzymatic activity/volume ) 25 U/L 0-55 Serum or plasma protein measurement (mass/volume) 6.7 g/dL 6.4-8.2 Serum or plasma albumin measurement (mass/volume) 3.9 g/dL 3.2-4.5 CALCIUM CORRECTED 9.3 mg/dL 8.5-10.1 Lipase - 09/03/18 21:30 Lipase 19 U/L 8-78 Complete blood count (CBC) with automated white blood cell (WBC) differential - 11/23/18 14:57 Blood leukocytes automated count (number/volume) 11.7 10*3/uL 4.3-11.0 Blood erythrocytes automated count (number/volume) 4.76 10*6/uL 4.35-5.85 Venous blood hemoglobin measurement (mass/volume) 13.8 g/dL 11.5-16.0 Blood hematocrit (volume fraction) 43 % 35-52 Automated erythrocyte mean corpuscular volume 90 [foz_us] 80-99 Automated erythrocyte mean corpuscular hemoglobin (mass per erythrocyte) 29 pg 25-34 Automated erythrocyte mean corpuscular hemoglobin concentration measurement ( mass/volume) 32 g/dL 32-36 Automated erythrocyte distribution width ratio 13.4 % 10.0-14.5 Automated blood platelet count (count/volume) 299 10*3/uL 130-400 Automated blood platelet mean volume measurement 8.5 [foz_us] 7.4-10.4 Automated blood neutrophils/100 leukocytes 78 % 42-75 Automated blood lymphocytes/100 leukocytes 15 % 12-44 Blood monocytes/100 leukocytes 4 % 0-12 Automated blood eosinophils/100 leukocytes 2 % 0-10 Automated blood basophils/100 leukocytes 1 % 0-10 Blood neutrophils automated count (number/volume) 9.2 10*3 1.8-7.8 Blood lymphocytes automated count (number/volume) 1.8 10*3 1.0-4.0 Blood monocytes automated count (number/volume) 0.5 10*3 0.0-1.0 Automated eosinophil count 0.3 10*3/uL 0.0-0.3 Automated blood basophil count (count/volume) 0.1 10*3/uL 0.0-0.1 Blood lactic acid measurement (moles/volume) - 11/23/18 14:57 Blood lactic acid measurement (moles/volume) 1.03 mmol/L 0.50-2.00 PT panel in platelet poor plasma by coagulation assay - 11/23/18 14:57 Prothrombin time (PT) in platelet poor plasma by coagulation assay 13.7 s 12.2-14.7 INR in platelet poor plasma or blood by coagulation assay 1.1 0.8-1.4 Activated partial thromboplastin time (aPTT) in platelet poor plasma bycoagulation assay - 11/23/18 14:57 Activated partial thromboplastin time (aPTT) in platelet poor plasma bycoagulation assay 32 s 24-35 Influenza virus A and B antigen detection - 11/23/18 14:57 FLU RESULT NEGATIVE FOR INFLUENZA A AND B ANTIGENS BY [facility] [place] Comprehensive metabolic panel - 11/23/18 14:57 Serum or plasma sodium measurement (moles/volume) 141 mmol/L 135-145 Serum or plasma potassium measurement (moles/volume) 3.9 mmol/L 3.6-5.0 Serum or plasma chloride measurement (moles/volume) 103 mmol/L 98-107 Carbon dioxide 22 mmol/L 21-32 Serum or plasma anion gap determination (moles/volume) 16 mmol/L 5-14 Serum or plasma urea nitrogen measurement (mass/volume) 13 mg/dL 7-18 Serum or plasma creatinine measurement (mass/volume) 0.60 mg/dL 0.60-1.30 Serum or plasma urea nitrogen/creatinine mass ratio 22 NRG Serum or plasma creatinine measurement with calculation of estimated glomerular filtration rate > NRG Serum or plasma glucose measurement (mass/volume) 93 mg/dL 70-105 Serum or plasma calcium measurement (mass/volume) 9.4 mg/dL 8.5-10.1 Serum or plasma total bilirubin measurement (mass/volume) 0.6 mg/dL 0.1-1.0 Serum or plasma alkaline phosphatase measurement (enzymatic activity/volume) 90 U/L 40-136 Serum or plasma aspartate aminotransferase measurement (enzymatic activity/ volume) 37 U/L 5-34 Serum or plasma alanine aminotransferase measurement (enzymatic activity/volume ) 59 U/L 0-55 Serum or plasma protein measurement (mass/volume) 7.7 g/dL 6.4-8.2 Serum or plasma albumin measurement (mass/volume) 3.8 g/dL 3.2-4.5 CALCIUM CORRECTED 9.6 mg/dL 8.5-10.1 Blood manual differential performed detection - 11/23/18 14:57 Blood monocytes/100 leukocytes 4 % NRG Manual blood segmented neutrophils/100 leukocytes 83 % NRG Blood band neutrophils/100 leukocytes 0 % NRG Manual blood lymphocytes/100 leukocytes 12 % NRG Manual eosinophils/100 leukocytes in nose 1 % NRG Manual blood basophils/100 leukocytes 0 % NRG Blood erythrocyte morphology finding identification NORMAL NRG Serum or plasma troponin i.cardiac measurement (mass/volume) - 11/23/18 14:57 Serum or plasma troponin i.cardiac measurement (mass/volume) < ng/ mL <0.028 Serum or plasma lithium measurement (moles/volume) - 11/23/18 14:57 BNP level 18.0 pg/mL <100.0 Bacterial blood culture - 11/23/18 14:57 Bacterial blood culture NG NRG Bacterial blood culture - 11/23/18 15:30 Bacterial blood culture NG NRG Complete urinalysis with reflex to culture - 11/23/18 18:00 Urine color determination YELLOW NRG Urine clarity determination CLEAR NRG Urine pH measurement by test strip 5 5-9 Specific gravity of urine by test strip 1.015 1.016- 1.022 Urine protein assay by test strip, semi-quantitative 2+ NEGATIVE Urine glucose detection by automated test strip NEGATIVE NEGATIVE Erythrocytes detection in urine sediment by light microscopy NEGATIVE NEGATIVE Urine ketones detection by automated test strip 4+ NEGATIVE Urine nitrite detection by test strip NEGATIVE NEGATIVE Urine total bilirubin detection by test strip NEGATIVE NEGATIVE Urine urobilinogen measurement by automated test strip (mass/volume) NORMAL NORMAL Urine leukocyte esterase detection by dipstick 1+ NEGATIVE Automated urine sediment erythrocyte count by microscopy (number/high power field) NONE NRG Automated urine sediment leukocyte count by microscopy (number/high power field ) [HPF] NRG Bacteria detection in urine sediment by light microscopy NEGATIVE NRG Squamous epithelial cells detection in urine sediment by light microscopy 5-10 NRG Crystals detection in urine sediment by light microscopy NONE NRG Casts detection in urine sediment by light microscopy NONE NRG Mucus detection in urine sediment by light microscopy NEGATIVE NRG Complete urinalysis with reflex to culture NO NRG Bacterial urine culture - 11/23/18 18:00 Bacterial urine culture NG NRG Complete blood count (CBC) with automated white blood cell (WBC) differential - 11/24/18 03:28 Blood leukocytes automated count (number/volume) 12.1 10*3/uL 4.3-11.0 Blood erythrocytes automated count (number/volume) 3.80 10*6/uL 4.35-5.85 Venous blood hemoglobin measurement (mass/volume) 11.4 g/dL 11.5-16.0 Blood hematocrit (volume fraction) 35 % 35-52 Automated erythrocyte mean corpuscular volume 92 [foz_us] 80-99 Automated erythrocyte mean corpuscular hemoglobin (mass per erythrocyte) 30 pg 25-34 Automated erythrocyte mean corpuscular hemoglobin concentration measurement ( mass/volume) 33 g/dL 32-36 Automated erythrocyte distribution width ratio 13.6 % 10.0-14.5 Automated blood platelet count (count/volume) 290 10*3/uL 130-400 Automated blood platelet mean volume measurement 8.3 [foz_us] 7.4-10.4 Automated blood neutrophils/100 leukocytes 82 % 42-75 Automated blood lymphocytes/100 leukocytes 10 % 12-44 Blood monocytes/100 leukocytes 4 % 0-12 Automated blood eosinophils/100 leukocytes 4 % 0-10 Automated blood basophils/100 leukocytes 0 % 0-10 Blood neutrophils automated count (number/volume) 9.9 10*3 1.8-7.8 Blood lymphocytes automated count (number/volume) 1.2 10*3 1.0-4.0 Blood monocytes automated count (number/volume) 0.5 10*3 0.0-1.0 Automated eosinophil count 0.5 10*3/uL 0.0-0.3 Automated blood basophil count (count/volume) 0.0 10*3/uL 0.0-0.1 Whole blood basic metabolic panel - 11/24/18 03:28 Serum or plasma sodium measurement (moles/volume) 143 mmol/L 135-145 Serum or plasma potassium measurement (moles/volume) 3.3 mmol/L 3.6-5.0 Serum or plasma chloride measurement (moles/volume) 112 mmol/L 98-107 Carbon dioxide 19 mmol/L 21-32 Serum or plasma anion gap determination (moles/volume) 12 mmol/L 5-14 Serum or plasma urea nitrogen measurement (mass/volume) 11 mg/dL 7-18 Serum or plasma creatinine measurement (mass/volume) 0.52 mg/dL 0.60-1.30 Serum or plasma urea nitrogen/creatinine mass ratio 21 NRG Serum or plasma creatinine measurement with calculation of estimated glomerular filtration rate > NRG Serum or plasma glucose measurement (mass/volume) 77 mg/dL 70-105 Serum or plasma calcium measurement (mass/volume) 8.2 mg/dL 8.5-10.1 Serum or plasma phosphate measurement (mass/volume) - 11/24/18 03:28 Serum or plasma phosphate measurement (mass/volume) 3.3 mg/dL 2.3-4.7 Magnesium - 11/24/18 03:28 Magnesium 1.6 mg/dL 1.8-2.4 Arterial blood gas measurement - 11/25/18 00:30 Blood pCO2 44 mm[Hg] 35-45 Blood pO2 79 mm[Hg] 79-93 Arterial blood bicarbonate measurement (moles/volume) 25 mmol/L 23-27 Arterial blood base excess by calculation 0.6 mmol/L -2.5 -2.5 Arterial blood oxygen saturation measurement 96 % 94-100 * Inhaled oxygen flow rate 15L NRG Arterial blood pH measurement with patient temperature correction 7.38 7.37-7.43 Arterial blood carbon dioxide, total measurement (moles/volume) 26.5 mmol/L 21.0-31.0 Body site RIGHT RADIAL NRG Assessment of wrist artery patency prior to arterial puncture YES- POS NRG Setting of ventilation mode NO NRG Measurement of body temperature 98.8 NRG Complete blood count (CBC) with automated white blood cell (WBC) differential - 11/25/18 03:30 Blood leukocytes automated count (number/volume) 11.5 10*3/uL 4.3-11.0 Blood erythrocytes automated count (number/volume) 4.22 10*6/uL 4.35-5.85 Venous blood hemoglobin measurement (mass/volume) 12.3 g/dL 11.5-16.0 Blood hematocrit (volume fraction) 38 % 35-52 Automated erythrocyte mean corpuscular volume 91 [foz_us] 80-99 Automated erythrocyte mean corpuscular hemoglobin (mass per erythrocyte) 29 pg 25-34 Automated erythrocyte mean corpuscular hemoglobin concentration measurement ( mass/volume) 32 g/dL 32-36 Automated erythrocyte distribution width ratio 13.1 % 10.0-14.5 Automated blood platelet count (count/volume) 322 10*3/uL 130-400 Automated blood platelet mean volume measurement 9.0 [foz_us] 7.4-10.4 Automated blood neutrophils/100 leukocytes 82 % 42-75 Automated blood lymphocytes/100 leukocytes 11 % 12-44 Blood monocytes/100 leukocytes 4 % 0-12 Automated blood eosinophils/100 leukocytes 3 % 0-10 Automated blood basophils/100 leukocytes 0 % 0-10 Blood neutrophils automated count (number/volume) 9.4 10*3 1.8-7.8 Blood lymphocytes automated count (number/volume) 1.2 10*3 1.0-4.0 Blood monocytes automated count (number/volume) 0.5 10*3 0.0-1.0 Automated eosinophil count 0.4 10*3/uL 0.0-0.3 Automated blood basophil count (count/volume) 0.0 10*3/uL 0.0-0.1 Whole blood basic metabolic panel - 11/25/18 03:30 Serum or plasma sodium measurement (moles/volume) 143 mmol/L 135-145 Serum or plasma potassium measurement (moles/volume) 3.3 mmol/L 3.6-5.0 Serum or plasma chloride measurement (moles/volume) 106 mmol/L 98-107 Carbon dioxide 20 mmol/L 21-32 Serum or plasma anion gap determination (moles/volume) 17 mmol/L 5-14 Serum or plasma urea nitrogen measurement (mass/volume) 9 mg/dL 7-18 Serum or plasma creatinine measurement (mass/volume) 0.54 mg/dL 0.60-1.30 Serum or plasma urea nitrogen/creatinine mass ratio 17 NRG Serum or plasma creatinine measurement with calculation of estimated glomerular filtration rate > NRG Serum or plasma glucose measurement (mass/volume) 108 mg/dL 70-105 Serum or plasma calcium measurement (mass/volume) 8.3 mg/dL 8.5-10.1 Serum or plasma phosphate measurement (mass/volume) - 11/25/18 03:30 Serum or plasma phosphate measurement (mass/volume) 2.9 mg/dL 2.3-4.7 Magnesium - 11/25/18 03:30 Magnesium 1.5 mg/dL 1.8-2.4 Sputum Gram stain - 11/25/18 13:10 Sputum Gram stain Few Gram positive cocci in clusters NRG Bacteria identification in bronchial specimen by aerobe culture - 11/25/18 13: 10 QUANTITY OF GROWTH . NRG Bacteria identification in bronchial specimen by aerobe culture YEAST NRG FTX;REPORTABLE LESS THAN 1,000 CFU/ML NRG FREE TEXT ENTRY 2 SUSCEPTIBILITY REPORT [facility] 11/27 12:05 NRG FREE TEXT ENTRY 3 MRSA REPORTED TO [facility] 11/27 12:24 NRG RML Sensitivity Panel - 11/25/18 13:10 Oxacillin susceptibility test by minimum inhibitory concentration R NRG Clindamycin susceptibility test by minimum inhibitory concentration <= NRG Erythromycin susceptibility test by minimum inhibitory concentration > NRG Trimethoprim/sulfamethoxazole susceptibility test by minimum inhibitoryconcentration S NRG Vancomycin susceptibility test by minimum inhibitory concentration 1 NRG Levofloxacin susceptibility test by minimum inhibitory concentration <= NRG Rifampin susceptibility test by minimum inhibitory concentration <= NRG Cefazolin susceptibility test by minimum inhibitory concentration > NRG Linezolid susceptibility test by minimum inhibitory concentration 2 NRG Penicillin G susceptibility test by minimum inhibitory concentration > NRG Moxifloxacin susceptibility test by minimum inhibitory concentration <= NRG Minocycline susc LEONEL <= NRG C FUNGUS SPUTUM FLUID TISSUE - 11/25/18 13:10 QUANTITY OF GROWTH FEW NRG C FUNGUS SPUTUM FLUID TISSUE [id number] NRG Mycobacterium species detection by organism specific culture - 11/25/18 13:10 Serum or plasma lithium measurement (moles/volume) - 11/25/18 14:00 BNP level 62.6 pg/mL <100.0 Complete urinalysis with reflex to culture - 11/25/18 21:29 Urine color determination YELLOW NRG Urine clarity determination CLEAR NRG Urine pH measurement by test strip 5 5-9 Specific gravity of urine by test strip 1.015 1.016- 1.022 Urine protein assay by test strip, semi-quantitative 1+ NEGATIVE Urine glucose detection by automated test strip NEGATIVE NEGATIVE Erythrocytes detection in urine sediment by light microscopy NEGATIVE NEGATIVE Urine ketones detection by automated test strip NEGATIVE NEGATIVE Urine nitrite detection by test strip NEGATIVE NEGATIVE Urine total bilirubin detection by test strip NEGATIVE NEGATIVE Urine urobilinogen measurement by automated test strip (mass/volume) NORMAL NORMAL Urine leukocyte esterase detection by dipstick 1+ NEGATIVE Automated urine sediment erythrocyte count by microscopy (number/high power field) NONE NRG Automated urine sediment leukocyte count by microscopy (number/high power field ) [HPF] NRG Bacteria detection in urine sediment by light microscopy TRACE NRG Squamous epithelial cells detection in urine sediment by light microscopy RARE NRG Crystals detection in urine sediment by light microscopy NONE NRG Casts detection in urine sediment by light microscopy PRESENT NRG Mucus detection in urine sediment by light microscopy NEGATIVE NRG Complete urinalysis with reflex to culture NO NRG Yeast detection in urine sediment by light microscopy FEW NRG Hyaline casts detection in urine sediment by light microscopy 2-5 NRG Complete blood count (CBC) with automated white blood cell (WBC) differential - 11/26/18 03:29 Blood leukocytes automated count (number/volume) 13.3 10*3/uL 4.3-11.0 Blood erythrocytes automated count (number/volume) 4.05 10*6/uL 4.35-5.85 Venous blood hemoglobin measurement (mass/volume) 11.9 g/dL 11.5-16.0 Blood hematocrit (volume fraction) 37 % 35-52 Automated erythrocyte mean corpuscular volume 91 [foz_us] 80-99 Automated erythrocyte mean corpuscular hemoglobin (mass per erythrocyte) 29 pg 25-34 Automated erythrocyte mean corpuscular hemoglobin concentration measurement ( mass/volume) 32 g/dL 32-36 Automated erythrocyte distribution width ratio 13.2 % 10.0-14.5 Automated blood platelet count (count/volume) 366 10*3/uL 130-400 Automated blood platelet mean volume measurement 8.7 [foz_us] 7.4-10.4 Automated blood neutrophils/100 leukocytes 89 % 42-75 Automated blood lymphocytes/100 leukocytes 6 % 12-44 Blood monocytes/100 leukocytes 3 % 0-12 Automated blood eosinophils/100 leukocytes 2 % 0-10 Automated blood basophils/100 leukocytes 0 % 0-10 Blood neutrophils automated count (number/volume) 11.8 10*3 1.8-7.8 Blood lymphocytes automated count (number/volume) 0.8 10*3 1.0-4.0 Blood monocytes automated count (number/volume) 0.3 10*3 0.0-1.0 Automated eosinophil count 0.3 10*3/uL 0.0-0.3 Automated blood basophil count (count/volume) 0.0 10*3/uL 0.0-0.1 Whole blood basic metabolic panel - 11/26/18 03:29 Serum or plasma sodium measurement (moles/volume) 137 mmol/L 135-145 Serum or plasma potassium measurement (moles/volume) 4.8 mmol/L 3.6-5.0 Serum or plasma chloride measurement (moles/volume) 106 mmol/L 98-107 Carbon dioxide 24 mmol/L 21-32 Serum or plasma anion gap determination (moles/volume) 7 mmol/L 5-14 Serum or plasma urea nitrogen measurement (mass/volume) 5 mg/dL 7-18 Serum or plasma creatinine measurement (mass/volume) 0.58 mg/dL 0.60-1.30 Serum or plasma urea nitrogen/creatinine mass ratio 9 NRG Serum or plasma creatinine measurement with calculation of estimated glomerular filtration rate > NRG Serum or plasma glucose measurement (mass/volume) 136 mg/dL 70-105 Serum or plasma calcium measurement (mass/volume) 7.9 mg/dL 8.5-10.1 Serum or plasma phosphate measurement (mass/volume) - 11/26/18 03:29 Serum or plasma phosphate measurement (mass/volume) 1.8 mg/dL 2.3-4.7 Magnesium - 11/26/18 03:29 Magnesium 1.9 mg/dL 1.8-2.4 Serum or plasma triglyceride measurement (mass/volume) - 11/26/18 03:29 Serum or plasma triglyceride measurement (mass/volume) 78 mg/dL <150 PREALBUMIN - 11/26/18 03:29 PREALBUM <3.0 18.0-37.0 Blood lactic acid measurement (moles/volume) - 11/26/18 20:15 Blood lactic acid measurement (moles/volume) 1.09 mmol/L 0.50-2.00 Bacterial blood culture - 11/26/18 20:15 Bacterial blood culture NG NRG Bacterial blood culture - 11/26/18 20:19 Bacterial blood culture NG NRG Complete blood count (CBC) with automated white blood cell (WBC) differential - 11/27/18 03:49 Blood leukocytes automated count (number/volume) 17.1 10*3/uL 4.3-11.0 Blood erythrocytes automated count (number/volume) 3.59 10*6/uL 4.35-5.85 Venous blood hemoglobin measurement (mass/volume) 10.5 g/dL 11.5-16.0 Blood hematocrit (volume fraction) 32 % 35-52 Automated erythrocyte mean corpuscular volume 90 [foz_us] 80-99 Automated erythrocyte mean corpuscular hemoglobin (mass per erythrocyte) 29 pg 25-34 Automated erythrocyte mean corpuscular hemoglobin concentration measurement ( mass/volume) 32 g/dL 32-36 Automated erythrocyte distribution width ratio 12.9 % 10.0-14.5 Automated blood platelet count (count/volume) 347 10*3/uL 130-400 Automated blood platelet mean volume measurement 8.6 [foz_us] 7.4-10.4 Automated blood neutrophils/100 leukocytes 91 % 42-75 Automated blood lymphocytes/100 leukocytes 4 % 12-44 Blood monocytes/100 leukocytes 4 % 0-12 Automated blood eosinophils/100 leukocytes 1 % 0-10 Automated blood basophils/100 leukocytes 0 % 0-10 Blood neutrophils automated count (number/volume) 15.6 10*3 1.8-7.8 Blood lymphocytes automated count (number/volume) 0.7 10*3 1.0-4.0 Blood monocytes automated count (number/volume) 0.7 10*3 0.0-1.0 Automated eosinophil count 0.2 10*3/uL 0.0-0.3 Automated blood basophil count (count/volume) 0.0 10*3/uL 0.0-0.1 Comprehensive metabolic panel - 11/27/18 03:49 Serum or plasma sodium measurement (moles/volume) 136 mmol/L 135-145 Serum or plasma potassium measurement (moles/volume) 3.7 mmol/L 3.6-5.0 Serum or plasma chloride measurement (moles/volume) 102 mmol/L 98-107 Carbon dioxide 27 mmol/L 21-32 Serum or plasma anion gap determination (moles/volume) 7 mmol/L 5-14 Serum or plasma urea nitrogen measurement (mass/volume) 5 mg/dL 7-18 Serum or plasma creatinine measurement (mass/volume) 0.48 mg/dL 0.60-1.30 Serum or plasma urea nitrogen/creatinine mass ratio 10 NRG Serum or plasma creatinine measurement with calculation of estimated glomerular filtration rate > NRG Serum or plasma glucose measurement (mass/volume) 121 mg/dL 70-105 Serum or plasma calcium measurement (mass/volume) 7.8 mg/dL 8.5-10.1 Serum or plasma total bilirubin measurement (mass/volume) 0.7 mg/dL 0.1-1.0 Serum or plasma alkaline phosphatase measurement (enzymatic activity/volume) 292 U/L 40-136 Serum or plasma aspartate aminotransferase measurement (enzymatic activity/ volume) 63 U/L 5-34 Serum or plasma alanine aminotransferase measurement (enzymatic activity/volume ) 128 U/L 0-55 Serum or plasma protein measurement (mass/volume) 5.0 g/dL 6.4-8.2 Serum or plasma albumin measurement (mass/volume) 2.2 g/dL 3.2-4.5 CALCIUM CORRECTED 9.2 mg/dL 8.5-10.1 Serum or plasma phosphate measurement (mass/volume) - 11/27/18 03:49 Serum or plasma phosphate measurement (mass/volume) 2.8 mg/dL 2.3-4.7 Magnesium - 11/27/18 03:49 Magnesium 1.4 mg/dL 1.8-2.4 Methicillin resistant Staphylococcus aureus (MRSA) screening culture - 08:10 Methicillin resistant Staphylococcus aureus (MRSA) screening culture NEG NRG Complete blood count (CBC) with automated white blood cell (WBC) differential - 11/28/18 03:40 Blood leukocytes automated count (number/volume) 12.3 10*3/uL 4.3-11.0 Blood erythrocytes automated count (number/volume) 3.61 10*6/uL 4.35-5.85 Venous blood hemoglobin measurement (mass/volume) 10.7 g/dL 11.5-16.0 Blood hematocrit (volume fraction) 33 % 35-52 Automated erythrocyte mean corpuscular volume 90 [foz_us] 80-99 Automated erythrocyte mean corpuscular hemoglobin (mass per erythrocyte) 30 pg 25-34 Automated erythrocyte mean corpuscular hemoglobin concentration measurement ( mass/volume) 33 g/dL 32-36 Automated erythrocyte distribution width ratio 13.0 % 10.0-14.5 Automated blood platelet count (count/volume) 425 10*3/uL 130-400 Automated blood platelet mean volume measurement 8.6 [foz_us] 7.4-10.4 Automated blood neutrophils/100 leukocytes 83 % 42-75 Automated blood lymphocytes/100 leukocytes 8 % 12-44 Blood monocytes/100 leukocytes 6 % 0-12 Automated blood eosinophils/100 leukocytes 4 % 0-10 Automated blood basophils/100 leukocytes 0 % 0-10 Blood neutrophils automated count (number/volume) 10.1 10*3 1.8-7.8 Blood lymphocytes automated count (number/volume) 1.0 10*3 1.0-4.0 Blood monocytes automated count (number/volume) 0.7 10*3 0.0-1.0 Automated eosinophil count 0.5 10*3/uL 0.0-0.3 Automated blood basophil count (count/volume) 0.0 10*3/uL 0.0-0.1 Comprehensive metabolic panel - 11/28/18 03:45 Serum or plasma sodium measurement (moles/volume) 138 mmol/L 135-145 Serum or plasma potassium measurement (moles/volume) 3.5 mmol/L 3.6-5.0 Serum or plasma chloride measurement (moles/volume) 103 mmol/L 98-107 Carbon dioxide 28 mmol/L 21-32 Serum or plasma anion gap determination (moles/volume) 7 mmol/L 5-14 Serum or plasma urea nitrogen measurement (mass/volume) 7 mg/dL 7-18 Serum or plasma creatinine measurement (mass/volume) 0.49 mg/dL 0.60-1.30 Serum or plasma urea nitrogen/creatinine mass ratio 14 NRG Serum or plasma creatinine measurement with calculation of estimated glomerular filtration rate > NRG Serum or plasma glucose measurement (mass/volume) 106 mg/dL 70-105 Serum or plasma calcium measurement (mass/volume) 8.1 mg/dL 8.5-10.1 Serum or plasma total bilirubin measurement (mass/volume) 0.5 mg/dL 0.1-1.0 Serum or plasma alkaline phosphatase measurement (enzymatic activity/volume) 271 U/L 40-136 Serum or plasma aspartate aminotransferase measurement (enzymatic activity/ volume) 37 U/L 5-34 Serum or plasma alanine aminotransferase measurement (enzymatic activity/volume ) 92 U/L 0-55 Serum or plasma protein measurement (mass/volume) 5.5 g/dL 6.4-8.2 Serum or plasma albumin measurement (mass/volume) 2.4 g/dL 3.2-4.5 CALCIUM CORRECTED 9.4 mg/dL 8.5-10.1 Serum or plasma phosphate measurement (mass/volume) - 11/28/18 03:45 Serum or plasma phosphate measurement (mass/volume) 2.7 mg/dL 2.3-4.7 Magnesium - 11/28/18 03:45 Magnesium 1.8 mg/dL 1.8-2.4 Vancomycin trough - 11/28/18 20:00 Vancomycin trough 7.2 ug/mL 10.0-20.0 Complete blood count (CBC) with automated white blood cell (WBC) differential - 11/29/18 03:44 Blood leukocytes automated count (number/volume) 8.9 10*3/uL 4.3-11.0 Blood erythrocytes automated count (number/volume) 3.57 10*6/uL 4.35-5.85 Venous blood hemoglobin measurement (mass/volume) 10.5 g/dL 11.5-16.0 Blood hematocrit (volume fraction) 32 % 35-52 Automated erythrocyte mean corpuscular volume 91 [foz_us] 80-99 Automated erythrocyte mean corpuscular hemoglobin (mass per erythrocyte) 29 pg 25-34 Automated erythrocyte mean corpuscular hemoglobin concentration measurement ( mass/volume) 33 g/dL 32-36 Automated erythrocyte distribution width ratio 12.8 % 10.0-14.5 Automated blood platelet count (count/volume) 392 10*3/uL 130-400 Automated blood platelet mean volume measurement 8.6 [foz_us] 7.4-10.4 Automated blood neutrophils/100 leukocytes 74 % 42-75 Automated blood lymphocytes/100 leukocytes 11 % 12-44 Blood monocytes/100 leukocytes 10 % 0-12 Automated blood eosinophils/100 leukocytes 6 % 0-10 Automated blood basophils/100 leukocytes 0 % 0-10 Blood neutrophils automated count (number/volume) 6.5 10*3 1.8-7.8 Blood lymphocytes automated count (number/volume) 1.0 10*3 1.0-4.0 Blood monocytes automated count (number/volume) 0.9 10*3 0.0-1.0 Automated eosinophil count 0.5 10*3/uL 0.0-0.3 Automated blood basophil count (count/volume) 0.0 10*3/uL 0.0-0.1 Whole blood basic metabolic panel - 11/29/18 03:44 Serum or plasma sodium measurement (moles/volume) 137 mmol/L 135-145 Serum or plasma potassium measurement (moles/volume) 3.3 mmol/L 3.6-5.0 Serum or plasma chloride measurement (moles/volume) 103 mmol/L 98-107 Carbon dioxide 25 mmol/L 21-32 Serum or plasma anion gap determination (moles/volume) 9 mmol/L 5-14 Serum or plasma urea nitrogen measurement (mass/volume) 5 mg/dL 7-18 Serum or plasma creatinine measurement (mass/volume) 0.48 mg/dL 0.60-1.30 Serum or plasma urea nitrogen/creatinine mass ratio 10 NRG Serum or plasma creatinine measurement with calculation of estimated glomerular filtration rate > NRG Serum or plasma glucose measurement (mass/volume) 123 mg/dL 70-105 Serum or plasma calcium measurement (mass/volume) 8.2 mg/dL 8.5-10.1 Serum or plasma phosphate measurement (mass/volume) - 11/29/18 03:44 Serum or plasma phosphate measurement (mass/volume) 3.2 mg/dL 2.3-4.7 Magnesium - 11/29/18 03:44 Magnesium 1.7 mg/dL 1.8-2.4 Liver function panel (serum or plasma alk phos, alb, total and direct bili, total protein, ALT, AST) - 11/29/18 03:44 Serum or plasma total bilirubin measurement (mass/volume) 0.3 mg/dL 0.1-1.0 Serum or plasma alkaline phosphatase measurement (enzymatic activity/volume) 213 U/L 40-136 Serum or plasma aspartate aminotransferase measurement (enzymatic activity/ volume) 34 U/L 5-34 Serum or plasma alanine aminotransferase measurement (enzymatic activity/volume ) 69 U/L 0-55 Serum or plasma protein measurement (mass/volume) 5.7 g/dL 6.4-8.2 Serum or plasma albumin measurement (mass/volume) 2.5 g/dL 3.2-4.5 Bilirubin direct 0.2 mg/dL 0.0-0.3 Serum or plasma indirect bilirubin measurement (mass/volume) 0.1 mg/ dL NRG Complete blood count (CBC) with automated white blood cell (WBC) differential - 11/30/18 05:16 Blood leukocytes automated count (number/volume) 9.8 10*3/uL 4.3-11.0 Blood erythrocytes automated count (number/volume) 3.68 10*6/uL 4.35-5.85 Venous blood hemoglobin measurement (mass/volume) 10.8 g/dL 11.5-16.0 Blood hematocrit (volume fraction) 33 % 35-52 Automated erythrocyte mean corpuscular volume 89 [foz_us] 80-99 Automated erythrocyte mean corpuscular hemoglobin (mass per erythrocyte) 29 pg 25-34 Automated erythrocyte mean corpuscular hemoglobin concentration measurement ( mass/volume) 33 g/dL 32-36 Automated erythrocyte distribution width ratio 13.2 % 10.0-14.5 Automated blood platelet count (count/volume) 491 10*3/uL 130-400 Automated blood platelet mean volume measurement 8.4 [foz_us] 7.4-10.4 Automated blood neutrophils/100 leukocytes 71 % 42-75 Automated blood lymphocytes/100 leukocytes 13 % 12-44 Blood monocytes/100 leukocytes 11 % 0-12 Automated blood eosinophils/100 leukocytes 5 % 0-10 Automated blood basophils/100 leukocytes 1 % 0-10 Blood neutrophils automated count (number/volume) 6.9 10*3 1.8-7.8 Blood lymphocytes automated count (number/volume) 1.2 10*3 1.0-4.0 Blood monocytes automated count (number/volume) 1.0 10*3 0.0-1.0 Automated eosinophil count 0.5 10*3/uL 0.0-0.3 Automated blood basophil count (count/volume) 0.1 10*3/uL 0.0-0.1 Comprehensive metabolic panel - 11/30/18 05:16 Serum or plasma sodium measurement (moles/volume) 135 mmol/L 135-145 Serum or plasma potassium measurement (moles/volume) 4.3 mmol/L 3.6-5.0 Serum or plasma chloride measurement (moles/volume) 105 mmol/L 98-107 Carbon dioxide 21 mmol/L 21-32 Serum or plasma anion gap determination (moles/volume) 9 mmol/L 5-14 Serum or plasma urea nitrogen measurement (mass/volume) 5 mg/dL 7-18 Serum or plasma creatinine measurement (mass/volume) 0.52 mg/dL 0.60-1.30 Serum or plasma urea nitrogen/creatinine mass ratio 10 NRG Serum or plasma creatinine measurement with calculation of estimated glomerular filtration rate > NRG Serum or plasma glucose measurement (mass/volume) 126 mg/dL 70-105 Serum or plasma calcium measurement (mass/volume) 8.5 mg/dL 8.5-10.1 Serum or plasma total bilirubin measurement (mass/volume) 0.3 mg/dL 0.1-1.0 Serum or plasma alkaline phosphatase measurement (enzymatic activity/volume) 228 U/L 40-136 Serum or plasma aspartate aminotransferase measurement (enzymatic activity/ volume) 43 U/L 5-34 Serum or plasma alanine aminotransferase measurement (enzymatic activity/volume ) 69 U/L 0-55 Serum or plasma protein measurement (mass/volume) 6.1 g/dL 6.4-8.2 Serum or plasma albumin measurement (mass/volume) 2.6 g/dL 3.2-4.5 CALCIUM CORRECTED 9.6 mg/dL 8.5-10.1 Serum or plasma phosphate measurement (mass/volume) - 11/30/18 05:16 Serum or plasma phosphate measurement (mass/volume) 4.0 mg/dL 2.3-4.7 Magnesium - 11/30/18 05:16 Magnesium 1.9 mg/dL 1.8-2.4 Encounters ACCT No. Visit Date/Time Discharge Status Pt. Type Provider Facility Loc./Unit Complaint [id number] 11/23/2018 19:05:00 11/30/2018 11:20:00 DIS Inpatient DI RILEY, CICI Bowser [facility] 4TH PNEUMOTHORAX,LEFT [id number] 09/03/2018 20:06:00 09/04/2018 01:59:00 DIS Emergency ANA RILEY, BRAYDON Browne [facility] ER HAD EPIDURAL DONE TODAY/STOMACH PAIN [id number] 08/06/2018 09:02:00 08/06/2018 23:59:59 CLS Outpatient CICI SEVILLA MD [facility] ENDO EPIGASTIC PAIN/GERD [id number] 07/31/2018 06:38:00 07/31/2018 15:21:00 DIS Outpatient CICI SEVILLA MD [facility] PREOP EGD [id number] 07/17/2018 07:36:00 07/17/2018 10:55:00 DIS Emergency CHEVY BANDA MD [facility] ER ABD PAIN [id number] 06/16/2017 07:40:00 06/16/2017 23:59:59 CLS Outpatient NICO PEREZ CAR INSTALLATIONS SUPERVISOR [facility] RAD LUMBAR RADICULOPATHY [id number] 12/28/2016 08:29:00 12/28/2016 23:59:59 CLS Outpatient NICO PEREZ CAR INSTALLATIONS SUPERVISOR [facility] RAD RT BREAST MASS [id number] 12/20/2016 07:35:00 12/20/2016 23:59:59 CLS Outpatient NICO PEREZ CAR INSTALLATIONS SUPERVISOR [facility] RAD RT BREAST PAIN,TUGGING X1 MONTH [id number] 08/30/2016 07:23:00 08/30/2016 23:59:59 CLS Outpatient NICO PEREZ CAR INSTALLATIONS SUPERVISOR [facility] LAB PENITENTIARY MEDICATIONS USE ,ASTHMA/COPD [id number] 06/15/2016 07:22:00 06/17/2016 13:00:00 DIS Outpatient CICI SEVILLA MD [facility] SDC VENTRAL HERNIA [id number] 06/13/2016 05:51:00 06/13/2016 14:36:00 DIS Outpatient CICI SEVILLA MD [facility] PREOP VENTRAL HERNIA [id number] 06/07/2016 14:29:00 06/07/2016 23:59:59 CLS Outpatient MERARY SERRA CAR INSTALLATIONS SUPERVISOR [facility] RAD UMBILICAL HERNIA, SEVERE PAIN W/ UMBILICAL BULGE [id number] 01/13/2016 08:57:00 01/19/2016 12:30:00 DIS Inpatient CICI SEVILLA MD [facility] 4TH HIATAL HERNIA [id number] 01/07/2016 08:48:00 01/07/2016 09:23:00 DIS Outpatient CICI SEVILLA MD [facility] PREOP HIATAL HERNIA [id number] 12/21/2015 11:52:00 12/21/2015 15:20:00 DIS Outpatient CICI SEVILLA MD [facility] UPPER GASTRIC PAIN [id number] 12/08/2015 09:39:00 12/08/2015 13:02:00 DIS Emergency MIGUEL JACQUELIN [facility] ER CP, CHEST TIGHTNESS [id number] 11/30/2018 11:25:00 ACT Inpatient BISHOP VAN DO [facility] IRF DEBILITY, PNUEMONIA [id number] 12/18/2015 07:34:00 Document Registration [id number] 12/08/2015 13:09:00 Document Registration [id number] 12/08/2015 13:09:00 Document Registration [id number] 11/28/2014 08:18:00 Document Registration [id number] 09/24/2018 09:52:00 09/24/2018 23:59:00 DIS Outpatient Diaz Justice [facility] FC Surg NPV Hernia [id number] 09/25/2018 05:21:41 Document Registration [id number] 11/14/2018 09:25:00 11/16/2018 16:28:00 DIS Inpatient Justice Kyle [facility] [place] VCF F7SE recurrent paraesophageal hernia // robot assist recurrent pa [id number] 11/17/2018 05:20:34 Document Registration [id number] 11/16/2018 05:20:24 Document Registration [id number] 11/15/2018 05:19:53 Document Registration
--- NOTE | 2018-11-30 11:44 | PM&R H&P / Post Admit Assess ---
History of Present Illness HPI/Chief Complaint CC: Critical illness myopathy HPI: This is a 58yoWF patient of [facility]gent Care Dr Grande who presented with increased shortness of breath and dysphagia 8 days following robotic assisted repair of recurrent paraesophageal hernia (11/14/18) in [place]. CT scan revealed a left large anterior pneumothorax with bilateral atelectasis and subcutaneous emphysema so chest tube was placed by Dr Milner and she was managed in the ICU aggressively by Dr Rouse s/p bronchoscopy and has sustained significant debility in need of IRF for aggressive therapies in order to ultimately return home. 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 She is currently being treated for MRSA pneumonitis confirmed on bronch cultures and maintained on O2 and Nebs and DVT PPx. Source: patient Exam Limitations: clinical condition Date Seen 11/30/18 Time Seen by a Provider: 10:30 Attending Physician Krupa Van DO PCP Kartik Grande DO Referring Physician Date of Admission Nov 30, 2018 at 11:25 Home Medications & Allergies Home Medications Reviewed patient Home Medication Reconciliation performed by pharmacy medication reconciliations facility environmental technician and/or nursing. Patients Allergies have been reviewed. 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) Smoking Status: Never a Smoker Recent Hopitalizations: No Immunizations Up To Date Tetanus Booster (TDap): Unknown Date of Pneumonia Vaccine: Sep 18, 2009 Date of Influenza Vaccine: Nov 15, 2018 Seasonal Allergies Seasonal Allergies: Yes Past Medical History Surgeries: Abdominal, Gallbladder, Hysterectomy Respiratory: Pneumonia (currently MRSA) Currently Using CPAP: No Currently Using BIPAP: No 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: No Sexually Transmitted Disease: No HIV/AIDS: No Female 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 Disorders: Denies Hysterectomy Gastrointestinal: Gastroesophageal Reflux, Hiatal Hernia Loss of Vision: Bilateral Hearing Impairment: Denies History of Blood Disorders: No Adverse Reaction to Blood Amin: No Family History Patient reports no known family medical history. No Pertinent Family Hx Review of Systems Constitutional: see HPI, weakness EENTM: throat pain, throat swelling Respiratory: cough, dyspnea on exertion, short of breath, wheezing Cardiovascular: no symptoms reported Gastrointestinal: loss of appetite, nausea Genitourinary: no symptoms reported Musculoskeletal: no symptoms reported Skin: no symptoms reported Psychiatric/Neurological: Depressed All Other Systems Reviewed Negative Unless Noted: Yes Physical Exam Exam Vital Signs Vital Signs Date Time Temp Pulse Resp B/P (MAP) Pulse Ox O2 Delivery O2 Flow Rate FiO2 11/30/18 15:20 99.1 101 20 150/95 (113) 95 Room Air Capillary Refill : General Appearance: No Apparent Distress, WD/WN, Chronically ill HEENT: PERRL/EOMI, Normal ENT Inspection, Pharynx Normal, Moist Mucous Membranes Neck: Full Range of Motion, Normal Inspection, Non Tender, Supple Respiratory: Chest Non Tender, No Accessory Muscle Use, No Respiratory Distress , Crackles, Decreased Breath Sounds, Wheezing Cardiovascular: Regular Rate, Rhythm, No Edema, No Gallop, No JVD, No Murmur Gastrointestinal: Normal Bowel Sounds, No Organomegaly, No Pulsatile Mass, Non Tender, Soft Back: Normal Inspection, No CVA Tenderness, No Vertebral Tenderness Extremity: Normal Capillary Refill, Normal Inspection, Normal Range of Motion, Non Tender, No Calf Tenderness, No Pedal Edema Neurologic/Psychiatric: Alert, Oriented x3, No Motor/Sensory Deficits, Depressed Affect Skin: Normal Color, Warm/Dry Lymphatic: No Adenopathy Results Results/Procedures Labs Patient resulted labs reviewed. Assessment/Plan Assessment and Plan (1) Critical illness myopathy (2) Paraesophageal hiatal hernia (3) Debility (4) Protein-energy malnutrition (5) MRSA pneumonia (6) Elevated blood pressure reading (7) Epigastric pain (8) GERD (gastroesophageal reflux disease) (9) Anemia (10) Thrombocytosis Post Admission Physician Asses Date seen by provider: Nov 30, 2018 Time seen by provider: 10:30 Admisison Dx: (1) Critical illness myopathy (2) MRSA pneumonia (3) Paraesophageal hiatal hernia Status: Acute (4) Anemia (5) Thrombocytosis (6) Elevated blood pressure reading (7) Debility (8) GERD (gastroesophageal reflux disease) (9) Epigastric pain (10) Protein-energy malnutrition The preadmission screen agrees with the post admission assessment that the patient is a good candidate for inpatient rehabilitation. The patient will have a comprehensive program of inpatient rehabilitation with a goal of maximizing level of functional independence prior to discharge home with family. The patient will have PT/OT ninety minutes per day, each discipline, five days a week for gait, strengthening, conditioning, balance, ADLs, any patient/family/caregiver training as necessary. Speech therapy to do cognitive assessment and treat as indicated. Rehabilitation nursing to assist with bowel, bladder, skin, wound care, medication administration, pain management. Oil Seal Assembler to assist with discharge planning, community reentry. SCD's for DVT prophylaxis. She appears to be well motivated to participate in three hours of therapy a day. She should be able to tolerate three hours of therapy a day from a medical standpoint. She should benefit from the three hours of therapy a day. She has a reasonable discharge plan, reasonable discharge rehabilitation goals and a supportive family. She has various comorbidities that need to be closely monitored with medications and treatments adjusted on a daily basis as needed. These include: Barriers to discharge for this patient who had been independent prior to this are for her to be modified independent to supervision for ADLs and mobility skills prior to discharge home with family, so as to lessen the burden of the caregivers. Risks for this patient include: 1. Fall 2. Fracture 3. DVT 4. Pulmonary embolism 5. Wound infection 6. Skin breakdown 7. Contractures 8. Poorly controlled pain 9. Urinary retention 10. UTI 11. Respiratory infection 12. Aspiration Estimated Length of Stay: 20 days Prognosis: Rehab prognosis appears good for goal of discharge home with family modified independent to supervision for ADLs and mobility skills. General: Alert, Oriented X3, Cooperative, No Acute Distress, Other ( chronnically ill, fatigued) HEENT: Atraumatic, PERRLA Neck: Supple, No JVD, No Thyromegaly, +2 Carotid Pulse No Bruit, No LAD Lungs: Other (crackles, wheezes, rhonchi) Abdomen: Normal Bowel Sounds, Soft, No Tenderness, No Hepatosplenomegaly, No Masses Extremities: No Clubbing, No Cyanosis, No Edema, Normal Pulses, No Tenderness/ Swelling Skin: No Rashes, No Breakdown, No Significant Lesion Neuro: Other (slowed gait, weakness 4/5 all extremities) Psych/Mental Status: Mental Status NL, Other (depressed) KRUPA VAN DO Nov 30, 2018 11:44
[2018-11-30] MEDS ORDERED: cloNIDine 0.1 MG (CATAPRES) TAB PO PRN (11:45)
[2018-11-30] MEDS ORDERED: meTOprolol 5 MG/5 ML (LOPRESSOR) VIAL IV PRN (11:45)
[2018-11-30] MEDS ORDERED: ONDANSETRON 4 MG/2 ML (SDV) Z0FRAN IVP PRN (11:45)
[2018-11-30] MEDS ORDERED: diphenhydrAMINE 50 MG/ML INJ (BENADRYL) IV PRN (11:45)
[2018-11-30] MEDS ORDERED: NS IV 1000 ML 1,000 ML IV SCH (11:45)
[2018-11-30] MEDS ORDERED: NALOXONE 0.4 MG/ML 1 ML (NARCAN) VIAL IV PRN (11:45)
[2018-11-30] MEDS ORDERED: METOCLOPRAMIDE INJ 10 MG/2 ML (REGLAN) IV PRN (11:45)
[2018-11-30] MEDS ORDERED: ACETAMINOPHEN 325 MG TABLET PO PRN (11:45)
[2018-11-30] MEDS ORDERED: TPN IV SCH (11:45)
[2018-11-30] MEDS ORDERED: PHARMACY TO DOSE IV SCH (11:45)
--- NOTE | 2018-11-30 11:46 | Physical Therapy Evaluation ---
PT Evaluation-General Medical Diagnosis Admission Date Nov 30, 2018 at 11:25 Medical Diagnosis: pneumonia and pneumothorax Onset Date: Nov 23, 2018 Therapy Diagnosis Therapy Diagnosis: impaired mobility, strength, endurance Height/Weight Height (Feet): 4 Height (Inches): 11.00 Weight (Pounds): 117 Weight (Ounces): 0.0 Referral Physician: Krupa Woodard DO Reason for Referral: Evaluation/Treatment Medical History Pertinent Medical History: GERD, HTN Additional Medical History surg (hiatal hernia repair, abdominal, gallbladder, hysterectomy) Current History increased SOB and dysphagia 8 days following robotic assisted repair of recurrent paraesophageal hernia Reviewed History: Yes Social History Current Living Status: Alone Entry Into Home: Stairs With Railing PT Steps Into Home: 4 Patient has a flight of steps inside home going into the basement that she has to use Prior/Core FIM Prior Level of Function Therapy Code Descriptions/Definitions Functional [place] Measure: 0=Not Assessed/NA 4=Minimal Assistance 1=Total Assistance 5=Supervision or Setup 2=Maximal Assistance 6=Modified [place] 3=Moderate Assistance 7=Complete [place] Therapy Quality Codes: 6 Independent with activity with or without an assistive device 5 Patient requires set up or clean up by helper. Patient completes activity by themselves 4 Supervision or touching assist (CGA). [place] provide cues , steadying assist 3 The helper provides less than half the effort to complete the activity 2 The helper provides more than half the effort to complete the activity 1 Dependent. The helper does all the effort to complete an activity 7 Patient refused to complete or attempt activity 9 The patient did not perform the activity before the current illness or injury 88 Not attempted due to Medical conditions or safety concerns Functional Abilities and Goals: Independent: Patient completed the activities by him/herself, with or without an assistive device, with no assistance from a helper. Needed Some Help: Patient needed partial assistance from another person to complete activities. Dependent: A helper completed the activities for the patient. Unknown: Not Applicable: Bed Mobility: 7 Transfers (B,C,W/C) (FIM): 7 Gait: 7 Stairs: 7 Indoor Mobility (Ambulation): Independent Stairs: Independent PT Evaluation-Current Subjective Patient in bed pre tx, agrees to PT, has 6/10 pain in abdomen. Patient will be going to rehab now and doing PT eval. Patient had to use the restroom during treatment and did so with SBA. Daughter with patient and in the room. Pt/Family Goals to be independent at home Objective Patient Orientation: Person, Place, Situation Attachments: IV ROM/Strength ROM Lower Extremities WNL Strenght Lower Extremities 4-/5 gross bilateral lower extremities Neuromuscular (Tone, Coordination, Reflexes) NT Sensory Vision: Wears Glasses Hearing: Functional Sensation Right Lower Extremit: Intact Sensation Left Lower Extremity: Intact Transfers Therapy Code Descriptions/Definitions Functional [place] Measure: 0=Not Assessed/NA 4=Minimal Assistance 1=Total Assistance 5=Supervision or Setup 2=Maximal Assistance 6=Modified [place] 3=Moderate Assistance 7=Complete [place] Therapy Quality Codes: 6 Independent with activity with or without an assistive device 5 Patient requires set up or clean up by helper. Patient completes activity by themselves 4 Supervision or touching assist (CGA). [place] provide cues , steadying assist 3 The helper provides less than half the effort to complete the activity 2 The helper provides more than half the effort to complete the activity 1 Dependent. The helper does all the effort to complete an activity 7 Patient refused to complete or attempt activity 9 The patient did not perform the activity before the current illness or injury 88 Not attempted due to Medical conditions or safety concerns Transfers (B, C, W/C) (FIM): 5 Scootin Rollin Roll Left to Right (QC): 4 Supine to/from Sit: 5 Sit to/from Stand: 5 Sit to Lying (QC): 4 Lying to Sitting/Side of Bed(Q: 4 Sit to Stand (QC): 4 Chair/Zma-vx-Bxmtv Xfer(QC): 4 Car Transfer (QC): 4 Patient performs bed mobility with SBA, supine <-> sit with SBA, sit <-> stand with SBA, transfers with SBA, car transfer SBA. Occasional cues for direction. Gait Does the Patient Walk?: Yes Mode of Locomotion: Walk Anticipated Mode of Locomotion: Walk Gait (FIM): 1 Walk 10 feet (QC): 4 Walking 10ft/uneven surface-QC: 4 Distance: 40'x2 Gait Level of Assist: 4 Gait Persons Needed: 1 Gait Assistive Device: FWW Comments/Gait Description Patient can ambulate 40' with a rolling walker with CGA (including 10' over an uneven surface). Patient has antalgic ambulation and moves extremely slowly. Wheelchair Training Does the Pt Use a Wheelchair?: No Stairs Stairs (FIM): 1 #of Steps: 1 Level of Assist: 4 1 Step (curb) (QC): 4 Assistive Device: Walker Patient can go up and down 1 step using a rolling walker with CGA. Cues for safety. Balance Sitting Static: Normal Sitting Dynamic: Normal Standing Static: Good Standing Dynamic: Good Assessment/Needs Patient has impaired mobility, strength, endurance. She ambulates very slowly but is steady, she had no LOB. Rehab Potential: Fair PT Short Term Goals Short Term Goals Time Frame: Dec 07, 2018 Transfers (B,C,W/C) (FIM): 6 Gait (FIM): 2 Gait Distance Comment: 50' Gait Level of Assist: 5 Gait Assistive Device: FWW PT Inventory Associate Goals Longterm Goals PT Inventory Associate Goals Time Frame: Dec 21, 2018 Transfers (B,C,W/C) (FIM): 6 Sit to Lying (QC): 6 Lying-Sitting on Side/Bed(QC): 6 Sit to Stand (QC): 6 Rollin Roll Left to Right (QC): 6 Chair/Pef-ez-Xnesu Xfer(QC): 6 Car Transfer (QC): 6 Gait (FIM): 6 Distance: 150' Walk 10 feet (QC): 6 Walk 10ft-Uneven Surface(QC): 6 Walk 50ft with 2 Turns (QC): 6 Walk 150 ft (QC): 6 Gait Level of Assist: 6 Gait Assistive Device: FWW Stairs (FIM): 2 # of Steps: 4 1 Step (curb) (QC): 4 4 Steps (QC): 4 Stairs Level Of Assist: 5 PT Plan Problem List Problem List: Activity Tolerance, Functional Strength, Safety, Balance, Gait, Transfer, Bed Mobility, ROM Treatment/Plan Treatment Plan: Continue Plan of Care Treatment Plan: Bed Mobility, Concurrent Therapy, Education, Functional Activity April, Functional Strength, Group Therapy, Gait, Safety, Therapeutic Exercise, Transfers Treatment Duration: Dec 21, 2018 Frequency: At least 5 of 7 days/Wk (IRF) Estimated Hrs Per Day: 1.5 hours per day Patient and/or Family Agrees t: Yes Safety Risks/Education Patient Education: Gait Training, Transfer Techniques, Steps, Correct Positioning, Safety Issues Teaching Recipient: Patient Teaching Methods: Demonstration, Discussion Response to Teaching: Reinforcement Needed Discharge Recommendations Plan Patient will perform bed mobility and transfer training, balance and endurance training, functional strengthening, stair training, gait training, and education , to improve functional mobility and independence at home. Therapy D/C Recommendations: Home w/ Family Support Time/GCodes Time In: 1115 Time Out: 1130 Total Billed Treatment Time: 15 Total Billed Treatment 1 visit ALBER 15' AMY BRADSHAW PT Nov 30, 2018 11:46
[2018-11-30 11:50] VITALS: BP 163/114
[2018-11-30] MEDS ORDERED: TROUGH ORDER-PHARMACY XX NR (12:00)
[2018-11-30] MEDS ORDERED: [UNRECOGNIZED DRUG - OTHER] IV SCH ×11 (12:01)
[2018-11-30] MEDS ORDERED: SODIUM CHLORIDE IV SCH ×11 (12:01)
[2018-11-30] MEDS ORDERED: SODIUM ACETATE IV SCH ×11 (12:01)
[2018-11-30] MEDS ORDERED: morphine INJ 4 MG/ML 1 ML (VIAL/SYRINGE) ONE (12:09)
[2018-11-30] MEDS: morphine INJ 4 MG/ML 1 ML (VIAL/SYRINGE) IVP PRN ×4 (12:15→21:28)
[2018-11-30 12:18] VITALS: BP 163/114
[2018-11-30] MEDS: LACTATED RINGERS 1,000 ML IV SCH (12:43)
--- NOTE | 2018-11-30 12:47 | Occupational Therapy Eval ---
OT Evaluation-General/PLF Medical Diagnosis Admission Date Nov 30, 2018 at 11:25 Medical Diagnosis: pneumonia and pneumothorax Onset Date: Nov 23, 2018 Therapy Diagnosis Therapy Diagnosis: decreased self care skills Height/Weight Height (Feet): 4 Height (Inches): 11.00 Weight (Pounds): 139 Weight (Ounces): 0.0 Precautions Precautions/Isolations: Droplet Isolation Referral Physician: Krupa Woodard DO Medical History Pertinent Medical History: GERD, HTN Current History increased SOB and dysphagia 8 days following robotic assisted repair of recurrent paraesophageal hernia Reviewed History: Yes Social History Home: Multilevel Current Living Status: Alone Entry Into Home: Stairs With Railing Steps Into Home: 5 Steps Inside Home: 7 (steps to basement where laundry is located) ADL-Prior Level of Function Therapy Code Descriptions/Definitions Functional [place] Measure: 0=Not Assessed/NA 4=Minimal Assistance 1=Total Assistance 5=Supervision or Setup 2=Maximal Assistance 6=Modified [place] 3=Moderate Assistance 7=Complete [place] Therapy Quality Codes: 6 Independent with activity with or without an assistive device 5 Patient requires set up or clean up by helper. Patient completes activity by themselves 4 Supervision or touching assist (CGA). [place] provide cues , steadying assist 3 The helper provides less than half the effort to complete the activity 2 The helper provides more than half the effort to complete the activity 1 Dependent. The helper does all the effort to complete an activity 7 Patient refused to complete or attempt activity 9 The patient did not perform the activity before the current illness or injury 88 Not attempted due to Medical conditions or safety concerns Functional Abilities and Goals: Independent: Patient completed the activities by him/herself, with or without an assistive device, with no assistance from a helper. Needed Some Help: Patient needed partial assistance from another person to complete activities. Dependent: A helper completed the activities for the patient. Unknown: Not Applicable: ADL PLOF Comments Pt reports being independent prior to admission. Did not use any assistive devices. Self Care: Independent Functional Cognition: Independent DME/Equipment: Grab Bars, Shower Occupation: Works in [employer] at [employer] Self: Yes OT Current Status Subjective Pt reports 9/10 pain in back, shoulder blades, neck, and abdomen. States she recently had pain medication. Mental Status/Objective Patient Orientation: Person, Place Attachments: IV Current Glasses/Contacts: Yes Hearing Aids: No Dentures/Partials: No Hand Dominance: Right Upper Extremity ROM Grossly WFL Upper Extremity Coordination Intact Upper Extremity Sensation Intact per pt report Upper Extremity Strength decreased bilaterally ADL-Treatment ADL-Current Pt in bed, reports fatigue, but agrees to ADLs. Pt supine to sit with minimal assistance secondary to fatigue and pain. Sit to stand with supervision. Pt transferred to chair with supervision. Sponge bath completed while seated in chair. Pt able to bathe upper body with set up. Minimal assistance for lower body bathing. Pt did not don shirt secondary to IV. Don underwear and pants with CGA. Pt doffed/donned socks with SBA. Gait to restroom with FWW. Transfer to toilet with supervision. Pt able to complete toileting with SBA. Grooming tasks completed while seated. Pt brushed teeth and combed hair with set up. Pt fatigues quickly with activity and takes frequent rest breaks throughout session. Pt requests to return to bed after session. Sit to supine with SBA. Pt resting in bed with needs met and daughter present. Eating (FIM): 1 (pt is on TPN. Pt is able to drink clear liquids with set up) Eating (QC): 1 Grooming (FIM): 5 Oral Hygiene (QC): 5 Bathing (FIM): 4 Shower/Bathe Self (QC): 4 Lower Body Dressing (FIM): 4 (CGA) Lower Body Dressing (QC): 4 On/Off Footwear (QC): 5 Toileting (FIM): 5 Toileting Hygiene (QC): 4 Toilet/Commode Transfer (FIM): 5 Toilet Transfer (QC): 4 Education OT Patient Education: Rehab process Teaching Recipient: Patient Teaching Methods: Discussion Response to Teaching: Verbalize Understanding OT Short Term Goals Short Term Goals Transfers (B,C,W/C) (FIM): 6 1=Demonstrate adherence to instructed precautions during ADL tasks. 2=Patient will verbalize/demonstrate understanding of assistive devices/ modifications for ADL. 3=Patient will improve strength/tolerance for activity to enable patient to perform ADL's. OT Usp Goals Usp Goals Time Frame: Dec 21, 2018 Eating (FIM): 7 Eating (QC): 7 Groomin Oral Hygiene (QC): 6 Bathing(FIM): 6 Shower/Bathe Self (QC): 6 Upper Body Dressing(FIM): 6 Upper Body Dressing (QC): 6 Lower Body Dressing(FIM): 6 Lower Body Dressing (QC): 6 On/Off Footwear (QC): 6 Toileting(FIM): 6 Toileting Hygiene (QC): 6 Toilet/Commode Transfer(FIM): 6 Toilet/Commode Transfer (QC): 6 Shower Transfer(FIM): 6 Additional Goals: 1-Demonstrate ADL Tasks, 2-Verbalize Understanding, 3- ImproveStrength/April 1=Demonstrate adherence to instructed precautions during ADL tasks. 2=Patient will verbalize/demonstrate understanding of assistive devices/ modifications for ADL. 3=Patient will improve strength/tolerance for activity to enable patient to perform ADL's. OT Education/Plan Problem List/Assessment Assessment: Decreased Activ Tolerance, Decreased UE Strength, Dependent Transfers, Impaired Self-Care Skills Pt to benefit from skilled OT intervention for ADL training, transfers, strengthening, and safety education to increase level of independence and allow safe discharge home. Discharge Recommendations Plan/Recommendations: Continue POC Treatment Plan/Plan of Care Treatment,Training & Education: Yes Patient would benefit from OT for education, treatment and training to promote independence in ADL's, mobility, safety and/or upper extremity function for ADL' s. Plan of Care: ADL Retraining, Functional Mobility, Group Exercise/Act as Ind, UE Funct Exercise/Act Treatment Duration: Dec 21, 2018 Frequency: At least 5 of 7 days/Wk (IRF) Estimated Hrs Per Day: 1.5 hours per day Rehab Potential: Fair Time/GCodes Start Time: 12:30 Stop Time: 13:30 Total Time Billed (hr/min): 60 Billed Treatment Time 1 visit, EVM(20minutes), ADLx3(40minutes) ANURADHA MELENDREZ OT Nov 30, 2018 12:47
--- NOTE | 2018-11-30 12:59 | NUR ---
TPN: NEXT BAG WILL RUN AT 48 ML/HR PROVIDING 1220 KCAL WITH 60 GM PROTEIN. MEETING GOALS OF 25-30 KCAL/KG ADJ BW WITH 1.2-1.5 GM/KG ADJ BW PROTEIN.
[2018-11-30] MEDS: VANCOMYCIN INJECTION 1,000 MG in NS (IVPB) 250 ML IV SCH ×2 (13:30→21:27)
--- NOTE | 2018-11-30 13:33 | Therapy Group Daily Note ---
Therapy Daily Group Note Patient Education Topic Exercises, Other List Below (AE for home use) Exercises UE Exercise Session Ratio (pt:therapist): 4:1 Goal of Session: Education on ARU Expectations, UE/LE Strengthing, Use of Adaptive Equipment Goal Met for this Session: Yes Pt Benefit of Group: Contributions to Others, F/U Use of Strategies @Home, Increased Functional Strength, Recognition of Peers, Socialization Other/Notes Pt ambulated with FWW to [facility]. Group consisted of introductions (name, place living, springtime activity), socialization, UE theraband exercises, benefits of exercise and AE for home use. Pt introduced self appropriately and actively listened to peers. Pt sitting in group and listened to conversations and educational topics. Pt nodded head in acknowledgement of topics. Did not contribute to conversations or complete exercises due to decreased activity tolerance and increased pain. Theraband given to pt for use in room. Pt left group early due to pain. Ambulated with FWW back to room. Sitting EOb with nrsg present after group with call light/ phone in reach. All needs met in room. Start Time: 11:30 Stop Time: 12:15 Total Billed Treatment Time: 45 Total Billed Treatment 1-GRP ULICES CORREIA Nov 30, 2018 13:33
[2018-11-30 13:39] VITALS: BP 167/97
--- NOTE | 2018-11-30 14:33 | ST Cognitive Linguistic Eval ---
Speech Evaluation-General Medical Diagnosis pneumonia and pneumothorax Onset Date: Nov 23, 2018 Therapy Diagnosis Therapy Diagnosis: Cognitive-Communication Precautions Precautions: Aspiration Precautions/Isolations: Droplet Isolation Referral Referring Physician: Dr. Woodard Reason for Referral: Evaluation/Treatment Medical History Pertinent Medical History: GERD, HTN Reviewed History: Yes Social History Current Living Status: Alone Speech PLF-Current Status Prior Level of Function Patient lived alone and was independent for most of her daily needs. Her grown children assist her as needed. Subjective Patient was pleasant and cooperative, she did become very sleepy toward the end of the session. Language Eval: Auditory Comprehends Simple Yes/No Ques: Functional Indent/Objects Multiple [place]: Functional Ident/Pics in Multiple [place]: Functional Follows 1-Step Commands: Functional Follows Complex Directions: Functional Follows General Conversations: Functional Language Eval: Verbal Language Completes Spontaneous Greeting: Functional Produces Auto, Serial Info: Functional Imitates Simple Words/Phrases: Functional Word Finding: Functional Requests Basic Needs: Functional States Basic Personal Info: Functional Expresses Complex Ideas: Functional Objective Cognitive Domain Attention: WNL Memory: WNL Problem Solving: Functional Executive Functions: WNL Visuospatial Skills: WNL Clock Drawing Severity Rating: WNL Objective Formal/Standardized Tests [place] Cognitive Assessment (MOCA) Results Visuospatial/Executive: 5/5, Namin/3, Attention: 6/6, Language: 3/3, Abstraction: 2/2, Memory: Immediate: 5/5, Delayed with cues: 3/5, Orientation: 6 /6 Oral Motor/Speech Production Within Functional Limits Impression The patient is a pleasant 58 year old female who was admitted to the ARU following surgeries for strengthening in order to return home. The patient was given a cognitive assessment at bedside with the patient scoring WNL for all areas tested. The patient does not require skilled ST services at this time. Communication/Social Cognition Comprehension: 7 Expression: 7 Social Interaction: 7 Problem Solvin Memory: 7 Speech Patient Assess Expression of Ideas/Wants: Expression (4) Understanding Verbal Content: Understands (4) Repetition of Three Words: Three (3) Temporal Orientation: Year: Correct (3) Temporal Orientation: Month: Accurate within 5 days(2) Temporal Orientation: Day: Correct (1) Recall : Wear to say "Sock": Yes, no cue required (2) Recall : Color: Yes, after cueing (1) Recall : Bed: Yes,after cueing (1) Memory/Recall Ability: Current season, That he or she is in a hsp/hsp unit Speech-Plan Patient/Family Goals Patient/Family Goals: The patient plans to return home with family support post rehab. Treatment Plan Speech Therapy Treatment Plan: Discontinue ST The patient does not require skilled ST at this time. Treatment Duration: Nov 30, 2018 Frequency: 1 time per week Estimated Hrs Per Day: .5 hour per day Rehab Potential: Fair Barriers to Learning: None identified Pt/Family Agrees to Plan: Yes Safety Risks/Education Teaching Recipient: Patient, Family Teaching Methods: Discussion Response to Teaching: Verbalize Understanding Education Topics Provided: Safety of oral intake Time Speech Therapy Time In: 13:45 Speech Therapy Time Out: 14:10 Total Billed Time: 25 Billed Treatment Time 1, KENDAL Barney Nov 30, 2018 14:33
--- NOTE | 2018-11-30 14:52 | Physical Therapy Daily Note ---
PT Daily Note-Current Subjective Patient in bed pre tx, agrees to PT, has 6/10 pain in abdomen, nurse notified of pain. Appearance Patient in bed post tx with nurse call, phone, tray, all needs met. Daughter in the room. Mental Status Patient Orientation: Person, Place, Situation Attachments: IV Transfers Therapy Code Descriptions/Definitions Functional [place] Measure: 0=Not Assessed/NA 4=Minimal Assistance 1=Total Assistance 5=Supervision or Setup 2=Maximal Assistance 6=Modified [place] 3=Moderate Assistance 7=Complete [place] Therapy Quality Codes: 6 Independent with activity with or without an assistive device 5 Patient requires set up or clean up by helper. Patient completes activity by themselves 4 Supervision or touching assist (CGA). [place] provide cues , steadying assist 3 The helper provides less than half the effort to complete the activity 2 The helper provides more than half the effort to complete the activity 1 Dependent. The helper does all the effort to complete an activity 7 Patient refused to complete or attempt activity 9 The patient did not perform the activity before the current illness or injury 88 Not attempted due to Medical conditions or safety concerns Transfers (B, C, W/C) (FIM): 5 Scootin Rollin Supine to/from Sit: 5 Sit to/from Stand: 5 Bed to/from Chair: 5 Gait Training Gait (FIM): 2 Distance: 60'x4 Gait Level of Assist: 5 Gait Persons Needed: 1 Gait Assistive Device: FWW Antalgic gait, extremely slow, steady, no LOB. Exercises NuStep Minutes: 10 NuStep Workload: 4 Treatments bed mobility and transfers, ambulation, functional strengthening, patient was also toileted once with SBA. Assessment Current Status: Fair Progress improved endurance but patient needs frequent rest breaks due to fatigue PT Short Term Goals Short Term Goals Time Frame: Dec 07, 2018 Transfers (B,C,W/C) (FIM): 6 Gait (FIM): 2 Gait Distance Comment: 50' Gait Level of Assist: 5 Gait Assistive Device: FWW PT Central Sterile Supply Technician Goals Central Sterile Supply Technician Goals PT Central Sterile Supply Technician Goals Time Frame: Dec 21, 2018 Transfers (B,C,W/C) (FIM): 6 Sit to Lying (QC): 6 Lying-Sitting on Side/Bed(QC): 6 Sit to Stand (QC): 6 Rollin Roll Left to Right (QC): 6 Chair/[id number] Xfer(QC): 6 Car Transfer (QC): 6 Gait (FIM): 6 Distance: 150' Walk 10 feet (QC): 6 Walk 10ft-Uneven Surface(QC): 6 Walk 50ft with 2 Turns (QC): 6 Walk 150 ft (QC): 6 Gait Level of Assist: 6 Gait Assistive Device: FWW Stairs (FIM): 2 # of Steps: 4 1 Step (curb) (QC): 4 4 Steps (QC): 4 Stairs Level Of Assist: 5 PT Plan Problem List Problem List: Activity Tolerance, Functional Strength, Safety, Balance, Gait, Transfer, Bed Mobility Treatment/Plan Treatment Plan: Continue Plan of Care Treatment Plan: Bed Mobility, Concurrent Therapy, Education, Functional Activity April, Functional Strength, Group Therapy, Gait, Safety, Therapeutic Exercise, Transfers Treatment Duration: Dec 21, 2018 Frequency: At least 5 of 7 days/Wk (IRF) Estimated Hrs Per Day: 1.5 hours per day Patient and/or Family Agrees t: Yes Safety Risks/Education Patient Education: Gait Training, Transfer Techniques, Correct Positioning, Safety Issues Teaching Recipient: Patient Teaching Methods: Demonstration, Discussion Response to Teaching: Reinforcement Needed Time/GCodes Time In: 1410 Time Out: 1450 Total Billed Treatment Time: 40 Total Billed Treatment 1 visit EX 10' GT 30' AMY BRADSHAW PT Nov 30, 2018 14:52
[2018-11-30] MEDS: RT-ALBUTEROL SULF 2.5 MG/3 ML PRE-MIX VIAL INH SCH ×2 (14:56→19:44)
[2018-11-30] MEDS: LACTOBACILLUS ACIDOPHILUS (PROBIOTIC) CAPSULE PO SCH ×2 (14:57→17:43)
[2018-11-30 15:20] VITALS: BP 150/95
[2018-11-30] MEDS: amLODIPine 5 MG (NORVASC) TAB PO SCH (15:29)
[2018-11-30] MEDS: GABAPENTIN 100 MG (NEURONTIN) CAP PO SCH ×2 (15:31→20:59)
[2018-11-30] MEDS: GABAPENTIN 300 MG (NEURONTIN) CAP PO SCH ×2 (15:32→20:59)
--- NOTE | 2018-11-30 16:03 | NUR ---
Received in nsg report from 4th floor RN, that pt had been refusing to take any of her po meds. This RN spoke w the Speech Therapist, Katy about this, & also pt. Pt agreed to try to take her B/P med crushed in a small amount of applesauce. Pt took the Norvasc, crushed in applesauce, but, & held in mouth for a few minutes, but, then spit it out in nearby basin. Pt took small sips of water, & has been taking ice chips independently from cup on bedside table. Pt refused offer of anti-emetic medication. Dgtr at B/S, states, that, "this is what she has been doing upstairs when taking pills. Pt was given the Morphine which she requested for pain.
[2018-11-30] MEDS: SODIUM CHLORIDE IV SCH ×11 (17:42)
[2018-11-30] MEDS: SODIUM ACETATE IV SCH ×11 (17:42)
[2018-11-30] MEDS: [UNRECOGNIZED DRUG - OTHER] IV SCH ×11 (17:42)
[2018-11-30 19:00] VITALS: BP 156/92
[2018-11-30] MEDS: RT-ADVAIR HFA 115/21 MCG PER PUFF IH SCH (19:48)
[2018-11-30] MEDS: PANTOPRAZOLE 40 MG (PROTONIX) VIAL IV SCH (21:27)
[2018-11-30] MEDS: MUPIROCIN 2% OINT 22 GM (BACTROBAN) TUBE TOP SCH (21:28)
[2018-12-01] MEDS: morphine INJ 4 MG/ML 1 ML (VIAL/SYRINGE) IVP PRN ×6 (00:42→20:34)
[2018-12-01] MEDS: LACTATED RINGERS 1,000 ML IV SCH ×2 (03:39→20:16)
[2018-12-01] MEDS: LACTOBACILLUS ACIDOPHILUS (PROBIOTIC) CAPSULE PO SCH ×3 (04:10→17:04)
[2018-12-01 05:10] VITALS: BP 160/92
[2018-12-01] MEDS: VANCOMYCIN INJECTION 1,000 MG in NS (IVPB) 250 ML IV SCH ×3 (05:13→20:35)
[2018-12-01] MEDS: RT-ALBUTEROL SULF 2.5 MG/3 ML PRE-MIX VIAL INH SCH ×2 (07:44→11:35)
[2018-12-01] MEDS: PANTOPRAZOLE 40 MG (PROTONIX) VIAL IV SCH ×2 (10:20→20:34)
[2018-12-01] MEDS: ENOXAPARIN 40 MG/0.4 ML (LOVENOX) SYR SC SCH (10:20)
[2018-12-01] MEDS: SENNA W/DOCUSATE (SENOKOT S) TABLET PO SCH (10:21)
[2018-12-01] MEDS: fluCOnazole (DIFLUCAN) 100 MG TAB PO SCH ×2 (10:21→10:28)
[2018-12-01] MEDS: amLODIPine 5 MG (NORVASC) TAB PO SCH ×2 (10:21→10:29)
[2018-12-01] MEDS: GABAPENTIN 300 MG (NEURONTIN) CAP PO SCH ×4 (10:21→20:35)
[2018-12-01] MEDS: GABAPENTIN 100 MG (NEURONTIN) CAP PO SCH ×4 (10:21→20:35)
[2018-12-01] MEDS: MUPIROCIN 2% OINT 22 GM (BACTROBAN) TUBE TOP SCH ×2 (10:22→20:41)
--- NOTE | 2018-12-01 10:26 | NUR ---
Pt refused po medications. Stated she cannot swallow them Tried with applesauce and it didn't work either. States it gets caught in her esophagus.
--- NOTE | 2018-12-01 11:14 | PM&R Progress Note ---
Subjective HPI/CC On Admission Date Seen by Provider: Dec 01, 2018 Time Seen by Provider: 11:15 CC: Critical illness myopathy HPI: This is a 58yoWF patient of Urgent Care Dr Grande who presented with increased shortness of breath and dysphagia 8 days following robotic assisted repair of recurrent paraesophageal hernia (11/14/18) in [place]. CT scan revealed a left large anterior pneumothorax with bilateral atelectasis and subcutaneous emphysema so chest tube was placed by Dr Milner and she was managed in the ICU aggressively by Dr Rouse s/p bronchoscopy and has sustained significant debility in need of IRF for aggressive therapies in order to ultimately return home. 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 She is currently being treated for MRSA pneumonitis confirmed on bronch cultures and maintained on O2 and Nebs and DVT PPx. Subjective/Events-last exam Feels better lung rae today Lungs are clear now and they were very coarse during med surg stay Talked to her more about her recent surgery and apparently she had surgery by Dr Milner twice before and she was referred to [place] for the most recent surgery completed on 11/14/18. Feels like she can't swallow Speech therapy working with her Talked to her about possibly accessing her Gi tract another way and I will reach out to Dr Milner to see if any other modality other than the TPN is an option She seems to be a bit improved morale are today Getting up and around No BM yet but urinating well Review of Systems HEENT: Dysphasia Gastrointestinal: Nausea, Abdominal Pain Objective Exam Vital Signs Vital Signs Date Time Temp Pulse Resp B/P (MAP) Pulse Ox O2 Delivery O2 Flow Rate FiO2 12/01/18 13:00 112 12/01/18 11:41 Room Air 12/01/18 11:35 90 12/01/18 05:10 99.6 20 160/92 (114) Capillary Refill : General Appearance: No Apparent Distress, WD/WN, Chronically ill, Thin HEENT: PERRL/EOMI, Normal ENT Inspection, Pharynx Normal, Moist Mucous Membranes Neck: Full Range of Motion, Normal Inspection, Non Tender, Supple Respiratory: Chest Non Tender, Lungs Clear, Normal Breath Sounds, No Accessory Muscle Use, No Respiratory Distress, Wheezing Cardiovascular: Regular Rate, Rhythm, No Edema, No Gallop, No JVD, No Murmur, Tachycardia Gastrointestinal: Normal Bowel Sounds, No Organomegaly, No Pulsatile Mass, Non Tender, Soft Back: Normal Inspection, No CVA Tenderness, No Vertebral Tenderness Extremity: Normal Capillary Refill, Normal Inspection, Normal Range of Motion, Non Tender, No Calf Tenderness, No Pedal Edema Neurologic/Psychiatric: Alert, Oriented x3, No Motor/Sensory Deficits, Depressed Affect Skin: Normal Color, Warm/Dry Lymphatic: No Adenopathy Results/Procedures Lab Patient resulted labs reviewed. Assessment/Plan Assessment and Plan Assess & Plan/Chief Complaint (1) Critical illness myopathy (2) Paraesophageal hiatal hernia s/p repair in [place] after [address] Milner now with present complications (3) Debility (4) Protein-energy malnutrition (5) MRSA pneumonia much improved today, 12/01/18 (6) Elevated blood pressure reading (7) Epigastric pain (8) GERD (gastroesophageal reflux disease) (9) Anemia (10) Thrombocytosis (11)Severe dysphagia requiring TPN (12) Acute depression with decreased motivation Plan: Supportive care TPN Check labs in am Monitor BP and place Clonidine patch Fentanyl patch 12mcg dose and decrease Morphine IV to 2mg IV Q 4hours Inquire with surgery if we can place Dobbhoff tube via EGD for nutrition (1) Critical illness myopathy (2) MRSA pneumonia (3) Paraesophageal hiatal hernia (4) Anemia (5) Thrombocytosis (6) Elevated blood pressure reading (7) Debility (8) GERD (gastroesophageal reflux disease) (9) Epigastric pain (10) Protein-energy malnutrition Clinical Quality Measures DVT/VTE Risk/Contraindication: Risk Factor Score Per Nursin RFS Level Per Nursing on Admit: 2=Moderate BISHOP VAN DO Dec 01, 2018 11:14
--- NOTE | 2018-12-01 11:14 | Individualized Plan of Care ---
Individualized Plan of Care Rehab Nursing IPOC Order Admission Date Nov 30, 2018 at 11:25 Current Orders Orders Admission Order(Inpt,Obs,Sdc) (11/30/18 06:43) Flying Teacher-Inpt Rehab Con (11/30/18 06:43) Rehab Nursing Orders-Ipoc (11/30/18 06:43) Physical Therapy Rehab Orders (11/30/18 06:43) Occupational Therapy Rehab Ord (11/30/18 06:43) Speech Therapy Rehab Orders (11/30/18 06:43) Intake & Output 06,14,22 (11/30/18 06:43) Weekly Weight (Lbs) WEEK (11/30/18 06:43) Rehab-Intensity Of Therapy (11/30/18 06:43) Code/Resuscitation (11/30/18 06:43) Initiate Admission Nursing Pro .admission (11/30/18 06:43) Admission Arrival Bed Request (11/30/18 11:31) Incentive Spirometry (Nursing) Q2H (11/30/18 11:39) Sequential Compression Device 08,20 (11/30/18 11:39) Clear Liquid (11/30/18 Dinner) Fluticasone/Salmeterol Common (Advair 11 (11/30/18 20:00) Acetaminophen Tablet/Caplet (Tylenol T (11/30/18 11:45) Albuterol Pre-Mix Nebs (Rt) (Proventil (11/30/18 15:00) Albuterol/Ipra Inhalation Soln (Duoneb I (11/30/18 11:45) Diphenhydramine Injection (Benadryl Inje (11/30/18 11:45) Fluconazole Tablet (Diflucan Tablet) (12/01/18 09:00) Gabapentin Capsule/Tablet (Neurontin Cap (11/30/18 13:00) Gabapentin Capsule/Tablet (Neurontin Cap (11/30/18 13:00) Iv Misc (Tpn) (11/30/18 11:45) Lactated Ringers (Lr 1000 Ml Iv Solution (11/30/18 11:45) Lactobacillus Acidophilus Cap (Acidophil (11/30/18 12:00) Mupirocin Ointment (Bactroban Ointment (11/30/18 21:00) Naloxone Injection (Narcan Injection) (11/30/18 11:45) Ondansetron Injection (Zofran Injectio (11/30/18 11:45) Pantoprazole Injection (Protonix Injecti (11/30/18 21:00) Pharmacy To Dose (Pharmacy To Dose) (11/30/18 11:45) Metoclopramide Injection (Reglan Injecti (11/30/18 11:45) Senna S Tablet (Senokot S Tablet) (12/01/18 09:00) Sodium Chloride 14.6% Inj (Sodium Chlori (11/30/18 12:01) Sodium Chloride 14.6% Inj (Sodium Chlori (11/30/18 17:00) Sodium Chloride Flush (Catheter Flush Sy (11/30/18 11:45) Trough Order (Trough Order-Pharmacy Orde (11/30/18 12:00) Vancomycin Injection (Vancomycin Injecti (11/30/18 13:00) Metoprolol Tartrate Injection (Lopressor (11/30/18 11:45) Morphine Injection (Morphine Injection (11/30/18 11:45) Communication For Respiratory (11/30/18 11:39) Svn Small Volume Nebulizer (11/30/18 11:39) Consult Pulmonology (11/30/18 11:39) Svn Small Volume Nebulizer (11/30/18 11:39) Svn Small Volume Nebulizer (11/30/18 11:39) Clonidine Tablet (Catapres Tablet) (11/30/18 11:45) Amlodipine Tablet (Norvasc Tablet) (11/30/18 12:04) Enoxaparin Injection (Lovenox Injection) (12/01/18 09:00) Vancomycin,Trough (11/30/18 12:00) Morphine Injection (Morphine Injection (11/30/18 12:09) Patient Visit (11/30/18 ) Pt Eval Moderate Complexity (11/30/18 ) Patient Visit (11/30/18 ) Speech Sound Lang Comp (11/30/18 ) Ambulate 08,12,20 (11/30/18 15:37) Dvt/Vte Risk - Notifiy Physici 08 (11/30/18 15:37) Request For Dysphagia Services (11/30/18 19:35) Patient Visit (11/30/18 ) Exercise Therap, Ea 15 Min (11/30/18 ) Gait Training, Ea 15 Min (11/30/18 ) Patient Visit (12/01/18 ) Exercise Therap, Ea 15 Min (12/01/18 ) Morphine Injection (Morphine Injection (12/01/18 11:45) Fluconazole 200 Mg/100 Ml (Diflucan Iv) (12/01/18 11:30) Fentanyl Patch (Duragesic Patch) (12/01/18 11:30) Cbc With Automated Diff (12/02/18 06:00) Comprehensive Metabolic Panel (12/02/18 06:00) Clonidine Patch (Catapres Patch) (12/01/18 11:30) Rehab Nursing Orders: Ongoing Assess. of Function Status Intensity of Therapy to be met Patient to be seen: Min.3h per day/5 of 7d PT IPOC Problem List: Activity Tolerance, Functional Strength, Safety, Balance, Gait, Transfer, Bed Mobility Treatment Plan: Continue Plan of Care Bed Mobility, Concurrent Therapy, Education, Functional Activity April, Functional Strength, Group Therapy, Gait, Safety, Therapeutic Exercise, Transfers Treatment Duration: Dec 21, 2018 Frequency: At least 5 of 7 days/Wk (IRF) Estimated Hrs Per Day: 1.5 hours per day OT IPOC Problems: Decreased Activ Tolerance, Decreased UE Strength, Dependent Transfers , Impaired Self-Care Skills OT Treatment, Training and Edu: Yes OT Problems Pt to benefit from skilled OT intervention for ADL training, transfers, strengthening, and safety education to increase level of independence and allow safe discharge home. Plan of Care: ADL Retraining, Functional Mobility, Group Exercise/Act as Ind, UE Funct Exercise/Act Treatment Duration: Dec 21, 2018 Frequency: At least 5 of 7 days/Wk (IRF) Estimated Hrs Per Day: 1.[address] IPOC Speech Therapy Treatment Plan: Discontinue ST Treatment Duration: Nov 30, 2018 Frequency: 1 time per week Estimated Hrs Per Day: .5 hour per day Flying Teacher/Case Mgmt Flying Teacher/Case Managemen: Discharge Planning Dietitian/Engine Turner Dietitian/Engine Turner to monitor nutritional status and make changes and/or recommendations as needed and work with speech pathology on dietary upgrades as the occur. Physician IPOC Medical Issues being managed closely and that require the 24 hour availability of a physician: Unable to tolerate PO intake so on continuous TPN Severe pain is requiring narcotic management Medical Issues: Bowel/Bladder Function, Fluid/Electrolyte/Nutrition Balance, Infection Protection, Pain Management, Swallowing Precautions Brief Synthesis of Preadmission Screen, Post-Admission Evaluation, and Therapy Evaluations: PT and OT working to improve function and strength while Speech works on swallowing Medical Prognosis: Good Anticipated Length of Stay: 14 days BISHOP VAN DO Dec 01, 2018 11:13
--- NOTE | 2018-12-01 11:25 | Physical Therapy Daily Note ---
PT Daily Note-Current Subjective Pt visited x 2 this am. Pt c/o elevated back pain. Pain level upon first visit 940am 10/10. Returned for treatment at 1030am pain level 9/10. Pt declined gait training but agreed to ther ex in bed. Mental Status Patient Orientation: Person, Place Transfers Therapy Code Descriptions/Definitions Functional [place] Measure: 0=Not Assessed/NA 4=Minimal Assistance 1=Total Assistance 5=Supervision or Setup 2=Maximal Assistance 6=Modified [place] 3=Moderate Assistance 7=Complete [place] Therapy Quality Codes: 6 Independent with activity with or without an assistive device 5 Patient requires set up or clean up by helper. Patient completes activity by themselves 4 Supervision or touching assist (CGA). [place] provide cues , steadying assist 3 The helper provides less than half the effort to complete the activity 2 The helper provides more than half the effort to complete the activity 1 Dependent. The helper does all the effort to complete an activity 7 Patient refused to complete or attempt activity 9 The patient did not perform the activity before the current illness or injury 88 Not attempted due to Medical conditions or safety concerns Exercises Supine Ex: Ankle pumps, Quad Set, Glut sets, Heel Slides, Short Arc Quads, Hip abd/add Supine Reps: 20 Treatments Pt drifting off during ther ex, able to complete with prompting as needed. Assessment Current Status: Poor Progress, Fair Progress Pt lisbet treatment fair. Pt limited by back pain today. Pt needs met and call light in hand post therapy session. PT Short Term Goals Short Term Goals Time Frame: Dec 07, 2018 Transfers (B,C,W/C) (FIM): 6 Gait (FIM): 2 Gait Distance Comment: 50' Gait Level of Assist: 5 Gait Assistive Device: FWW Wheelchair Distance: See PT goals PT Jail Goals Cost And Risk Analysis Manager Goals PT Cost And Risk Analysis Manager Goals Time Frame: Dec 21, 2018 Transfers (B,C,W/C) (FIM): 6 Sit to Lying (QC): 6 Lying-Sitting on Side/Bed(QC): 6 Sit to Stand (QC): 6 Rollin Roll Left to Right (QC): 6 Chair/Jik-nf-Nbddk Xfer(QC): 6 Car Transfer (QC): 6 Gait (FIM): 6 Distance: 150' Walk 10 feet (QC): 6 Walk 10ft-Uneven Surface(QC): 6 Walk 50ft with 2 Turns (QC): 6 Walk 150 ft (QC): 6 Gait Level of Assist: 6 Gait Assistive Device: FWW Stairs (FIM): 2 # of Steps: 4 1 Step (curb) (QC): 4 4 Steps (QC): 4 Stairs Level Of Assist: 5 PT Plan Treatment/Plan Treatment Plan: Continue Plan of Care Treatment Plan: Bed Mobility, Concurrent Therapy, Education, Functional Activity April, Functional Strength, Group Therapy, Gait, Safety, Therapeutic Exercise, Transfers Treatment Duration: Dec 21, 2018 Frequency: At least 5 of 7 days/Wk (IRF) Estimated Hrs Per Day: 1.5 hours per day Patient and/or Family Agrees t: Yes Time/GCodes Time In: 1030 Time Out: 1045 Total Billed Treatment Time: 15 Total Billed Treatment 1, ther ex 15min KERRY BOYD CPTA Dec 01, 2018 11:25
[2018-12-01] MEDS ORDERED: fentaNYL PATCH 12 MCG (DURAGESIC) TD SCH (11:30)
[2018-12-01] MEDS: RT-ADVAIR HFA 115/21 MCG PER PUFF IH SCH ×2 (11:35→22:14)
[2018-12-01] MEDS: FLUCONAZOLE 200 MG/100 ML 50 ML, EMPTY IV BAG (PVC) 1 EA IV SCH ×2 (13:08)
[2018-12-01] MEDS: cloNIDine 0.1 MG PATCH (CATAPRES TTS) TDSY TD SCH (13:09)
[2018-12-01 15:46] VITALS: BP 163/99
[2018-12-01] MEDS: SODIUM CHLORIDE IV SCH ×11 (17:04)
[2018-12-01] MEDS: SODIUM ACETATE IV SCH ×11 (17:04)
[2018-12-01] MEDS: [UNRECOGNIZED DRUG - OTHER] IV SCH ×11 (17:04)
[2018-12-02] MEDS: RT-ALBUTEROL/IPRATROPIUM 3 ML (DUONEB) VIAL INH PRN ×2 (00:04→08:43)
[2018-12-02] MEDS: morphine INJ 4 MG/ML 1 ML (VIAL/SYRINGE) IVP PRN ×5 (00:35→20:27)
[2018-12-02] MEDS: VANCOMYCIN INJECTION 1,000 MG in NS (IVPB) 250 ML IV SCH ×3 (04:40→20:30)
[2018-12-02 05:04] VITALS: BP 162/98
[2018-12-02 05:23] LABS: BASOPHILS # (AUTO) 0.1 10^3/uL (0.0-0.1); BASOPHILS % (AUTO) 1 % (0-10); EOSINOPHILS # (AUTO) 0.6 10^3/uL (0.0-0.3); EOSINOPHILS % (AUTO) 5 % (0-10); HEMATOCRIT 34 % (35-52); HEMOGLOBIN 11.1 G/DL (11.5-16.0); LYMPHOCYTES # (AUTO) 1.9 X 10^3 (1.0-4.0); LYMPHOCYTES % (AUTO) 17 % (12-44); MEAN CORPUSCULAR HEMOGLOBIN 29 PG (25-34); MEAN CORPUSCULAR HGB CONC 32 G/DL (32-36); MEAN CORPUSCULAR VOLUME 89 FL (80-99); MEAN PLATELET VOLUME 8.5 FL (7.4-10.4); MONOCYTES # (AUTO) 1.1 X 10^3 (0.0-1.0); MONOCYTES % (AUTO) 10 % (0-12); NEUTROPHILS # (AUTO) 7.8 X 10^3 (1.8-7.8); NEUTROPHILS % (AUTO) 68 % (42-75); PLATELET COUNT 455 10^3/uL (130-400); RED CELL DISTRIBUTION WIDTH 13.2 % (10.0-14.5); WHITE BLOOD COUNT 11.4 10^3/uL (4.3-11.0)
[2018-12-02 05:50] LABS: ALANINE AMINOTRANSFERASE 66 U/L (0-55); ALBUMIN 2.8 GM/DL (3.2-4.5); ALKALINE PHOSPHATASE 217 U/L (40-136); BILIRUBIN,TOTAL 0.3 MG/DL (0.1-1.0); BUN/CREATININE RATIO 15; CALCIUM 8.8 MG/DL (8.5-10.1); CARBON DIOXIDE 21 MMOL/L (21-32); CHLORIDE 103 MMOL/L (98-107); CREATININE SERUM 0.53 MG/DL (0.60-1.30); GFR ESTIMATED > 60; GLUCOSE 127 MG/DL (70-105); POTASSIUM 4.3 MMOL/L (3.6-5.0); SODIUM 133 MMOL/L (135-145); TOTAL PROTEIN 6.7 GM/DL (6.4-8.2)
[2018-12-02 06:34] LABS: EOSINOPHILS % (MANUAL) 1 %; LYMPHOCYTES % (MANUAL) 10 %; MONOCYTES % (MANUAL) 12 %; NEUTROPHILS % (MANUAL) 77 %
[2018-12-02] MEDS: LACTOBACILLUS ACIDOPHILUS (PROBIOTIC) CAPSULE PO SCH ×3 (06:35→17:08)
[2018-12-02] MEDS: RT-ADVAIR HFA 115/21 MCG PER PUFF IH SCH ×2 (08:42→20:20)
[2018-12-02 09:22] VITALS: BP 151/93
[2018-12-02] MEDS: PANTOPRAZOLE 40 MG (PROTONIX) VIAL IV SCH ×2 (09:24→20:28)
[2018-12-02] MEDS: MUPIROCIN 2% OINT 22 GM (BACTROBAN) TUBE TOP SCH ×2 (09:25→20:35)
[2018-12-02] MEDS: ENOXAPARIN 40 MG/0.4 ML (LOVENOX) SYR SC SCH (09:25)
[2018-12-02] MEDS: GABAPENTIN 100 MG (NEURONTIN) CAP PO SCH ×3 (09:37→20:34)
[2018-12-02] MEDS: SENNA W/DOCUSATE (SENOKOT S) TABLET PO SCH (09:37)
[2018-12-02] MEDS: amLODIPine 5 MG (NORVASC) TAB PO SCH (09:37)
[2018-12-02] MEDS: GABAPENTIN 300 MG (NEURONTIN) CAP PO SCH ×3 (09:37→20:34)
[2018-12-02 09:48] LABS: MAGNESIUM 1.9 MG/DL (1.8-2.4); PHOSPHORUS 4.5 MG/DL (2.3-4.7)
[2018-12-02] MEDS: FLUCONAZOLE 200 MG/100 ML 50 ML, EMPTY IV BAG (PVC) 1 EA IV SCH ×2 (09:49)
--- NOTE | 2018-12-02 11:35 | PM&R Progress Note ---
Subjective HPI/CC On Admission Date Seen by Provider: Dec 02, 2018 Time Seen by Provider: 11:45 CC: Critical illness myopathy HPI: This is a 58yoWF patient of Urgent Care Dr Grande who presented with increased shortness of breath and dysphagia 8 days following robotic assisted repair of recurrent paraesophageal hernia (11/14/18) in [place]. CT scan revealed a left large anterior pneumothorax with bilateral atelectasis and subcutaneous emphysema so chest tube was placed by Dr Milner and she was managed in the ICU aggressively by Dr Rouse s/p bronchoscopy and has sustained significant debility in need of IRF for aggressive therapies in order to ultimately return home. 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 She is currently being treated for MRSA pneumonitis confirmed on bronch cultures and maintained on O2 and Nebs and DVT PPx. Subjective/Events-last exam Feels about the same Agrees with behavioral health consultation to help her with coping mechanism to help motivate Lungs are clear now and last dose of Vanc tomorrow Talked to her more yesterday about her recent surgery and apparently she had surgery by Dr Milner twice before and she was referred to [place] for the most recent surgery completed on 11/14/18. Feels like she can't swallow still Speech therapy working with her Talked to her about possibly accessing her GI tract another way and I will reach out to Dr Milner to see if any other modality other than the TPN is an option She seems to be a bit improved morale rae today Getting up and around No BM yet but urinating well Fentanyl patch not affecting her too much so will increase the dose soon Review of Systems General: Fatigue Objective Exam Vital Signs Vital Signs Date Time Temp Pulse Resp B/P (MAP) Pulse Ox O2 Delivery O2 Flow Rate FiO2 12/02/18 09:22 105 20 151/93 (112) 95 Room Air 12/02/18 05:04 98.0 Capillary Refill : General Appearance: No Apparent Distress, WD/WN, Chronically ill, Thin HEENT: PERRL/EOMI, Normal ENT Inspection, Pharynx Normal, Moist Mucous Membranes Neck: Full Range of Motion, Normal Inspection, Non Tender, Supple Respiratory: Chest Non Tender, Lungs Clear, Normal Breath Sounds, No Accessory Muscle Use, No Respiratory Distress, Wheezing Cardiovascular: Regular Rate, Rhythm, No Edema, No Gallop, No JVD, No Murmur, Tachycardia Gastrointestinal: Normal Bowel Sounds, No Organomegaly, No Pulsatile Mass, Non Tender, Soft Back: Normal Inspection, No CVA Tenderness, No Vertebral Tenderness Extremity: Normal Capillary Refill, Normal Inspection, Normal Range of Motion, Non Tender, No Calf Tenderness, No Pedal Edema Neurologic/Psychiatric: Alert, Oriented x3, No Motor/Sensory Deficits, Depressed Affect Skin: Normal Color, Warm/Dry Lymphatic: No Adenopathy Results/Procedures Lab Laboratory Tests 12/02/18 05:13 Patient resulted labs reviewed. Assessment/Plan Assessment and Plan Assess & Plan/Chief Complaint (1) Critical illness myopathy (2) Paraesophageal hiatal hernia s/p repair in [place] after [address] Milner now with present complications (3) Debility (4) Protein-energy malnutrition (5) MRSA pneumonia much improved today, 12/01/18 (6) Elevated blood pressure reading (7) Epigastric pain (8) GERD (gastroesophageal reflux disease) (9) Anemia (10) Thrombocytosis (11)Severe dysphagia requiring TPN (12) Acute depression with decreased motivation will consult behavioral consultation tomorrow and she agrees Plan: Supportive care TPN Reviewed labs Complete Vanc tomorrow Monitor BP and place Clonidine patch Fentanyl patch 12mcg dose and decrease Morphine IV to 2mg IV Q 4hours and will increase the dose soon Inquire with surgery if we can place Dobbhoff tube via EGD for nutrition (1) Critical illness myopathy (2) MRSA pneumonia (3) Paraesophageal hiatal hernia (4) Anemia (5) Thrombocytosis (6) Elevated blood pressure reading (7) Debility (8) GERD (gastroesophageal reflux disease) (9) Epigastric pain (10) Protein-energy malnutrition Clinical Quality Measures DVT/VTE Risk/Contraindication: Risk Factor Score Per Nursin RFS Level Per Nursing on Admit: 2=Moderate BISHOP VAN DO Dec 02, 2018 11:35
[2018-12-02] MEDS: SODIUM CHLORIDE IV SCH ×11 (17:09)
[2018-12-02] MEDS: [UNRECOGNIZED DRUG - OTHER] IV SCH ×11 (17:09)
[2018-12-02] MEDS: SODIUM ACETATE IV SCH ×11 (17:09)
[2018-12-02] MEDS: LACTATED RINGERS 1,000 ML IV SCH (17:23)
[2018-12-02 20:32] VITALS: BP 135/84
[2018-12-03] MEDS: morphine INJ 4 MG/ML 1 ML (VIAL/SYRINGE) IVP PRN ×5 (00:44→23:36)
[2018-12-03] MEDS: VANCOMYCIN INJECTION 1,000 MG in NS (IVPB) 250 ML IV SCH ×2 (05:18→13:31)
[2018-12-03] MEDS: LACTOBACILLUS ACIDOPHILUS (PROBIOTIC) CAPSULE PO SCH ×4 (05:19→19:24)
[2018-12-03 05:20] VITALS: BP 160/93
[2018-12-03] MEDS: RT-ADVAIR HFA 115/21 MCG PER PUFF IH SCH (08:03)
--- NOTE | 2018-12-03 08:21 | PM&R Progress Note ---
Subjective HPI/CC On Admission Date Seen by Provider: Dec 03, 2018 Time Seen by Provider: 08:30 CC: Critical illness myopathy HPI: This is a 58yoWF patient of Urgent Care Dr Grande who presented with increased shortness of breath and dysphagia 8 days following robotic assisted repair of recurrent paraesophageal hernia (11/14/18) in [place]. CT scan revealed a left large anterior pneumothorax with bilateral atelectasis and subcutaneous emphysema so chest tube was placed by Dr Milner and she was managed in the ICU aggressively by Dr Rouse s/p bronchoscopy and has sustained significant debility in need of IRF for aggressive therapies in order to ultimately return home. 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 She is currently being treated for MRSA pneumonitis confirmed on bronch cultures and maintained on O2 and Nebs and DVT PPx. Subjective/Events-last exam Consulting behavioral health for depression Increased Fentanyl patch from 12 to 25 and increasing the time between Morphine injections of 2mg IV Q6hrs She is passing gas but no BM since she is not eating or drinking anything Dr. Milner will see her today to evaluate options for enteral feedings Denies any significant other issues Adjusted breathing treatments to be scheduled TID Completing Vancomycin for MRSA pneumonia today Review of Systems General: Fatigue HEENT: Sore Throat Objective Exam Vital Signs Vital Signs Date Time Temp Pulse Resp B/P (MAP) Pulse Ox O2 Delivery O2 Flow Rate FiO2 12/03/18 11:01 90 Room Air 12/03/18 05:20 99.6 100 18 160/93 (115) Capillary Refill : General Appearance: No Apparent Distress, WD/WN, Chronically ill, Thin HEENT: PERRL/EOMI, Normal ENT Inspection, Pharynx Normal, Moist Mucous Membranes Neck: Full Range of Motion, Normal Inspection, Non Tender, Supple Respiratory: Chest Non Tender, Lungs Clear, Normal Breath Sounds, No Accessory Muscle Use, No Respiratory Distress, Wheezing Cardiovascular: Regular Rate, Rhythm, No Edema, No Gallop, No JVD, No Murmur, Tachycardia Gastrointestinal: Normal Bowel Sounds, No Organomegaly, No Pulsatile Mass, Non Tender, Soft Back: Normal Inspection, No CVA Tenderness, No Vertebral Tenderness Extremity: Normal Capillary Refill, Normal Inspection, Normal Range of Motion, Non Tender, No Calf Tenderness, No Pedal Edema Neurologic/Psychiatric: Alert, Oriented x3, No Motor/Sensory Deficits, Depressed Affect Skin: Normal Color, Warm/Dry Lymphatic: No Adenopathy Results/Procedures Lab Patient resulted labs reviewed. Assessment/Plan Assessment and Plan Assess & Plan/Chief Complaint (1) Critical illness myopathy (2) Paraesophageal hiatal hernia s/p repair in [place] after [address] Milner now with present complications (3) Debility (4) Protein-energy malnutrition (5) MRSA pneumonia much improved today, 12/01/18 (6) Elevated blood pressure reading (7) Epigastric pain (8) GERD (gastroesophageal reflux disease) (9) Anemia (10) Thrombocytosis (11)Severe dysphagia requiring TPN (12) Acute depression with decreased motivation will consult behavioral consultation tomorrow and she agrees Plan: Supportive care TPN Reviewed labs Complete Vanc today Monitor BP and place Clonidine patch Fentanyl patch 25mcg dose and decrease Morphine IV to 2mg IV Q 6hours and will work to wean off of the Morphine soon Inquire with surgery if we can place Dobbhoff tube via EGD for nutrition (1) Critical illness myopathy (2) MRSA pneumonia (3) Paraesophageal hiatal hernia (4) Anemia (5) Thrombocytosis (6) Elevated blood pressure reading (7) Debility (8) GERD (gastroesophageal reflux disease) (9) Epigastric pain (10) Protein-energy malnutrition Clinical Quality Measures DVT/VTE Risk/Contraindication: Risk Factor Score Per Nursin RFS Level Per Nursing on Admit: 2=Moderate BISHOP VAN DO Dec 03, 2018 08:21
--- NOTE | 2018-12-03 08:21 | Physical Therapy Daily Note ---
PT Daily Note-Current Subjective pt report feeling a little better today, requesting not to go out of room because she is having a hard time with the mask and having to take it off to cough and spit often and does not want to infect any one else. Reports any activity increases shoulder, lower back and shoulder blades pain and occasionally abdominal pain. Pt requiesting pain med ~35 minutes into tx session due to increasing pain. Pain Numeric Pain Scale: 5-Moderate Pain Pain Description: Sharp, Cramping Comment: LUT and across shoulders, comes and goes increases with coughing. Appearance Upon arrival, pt supine in bed awake and alert on using phone. Agreeable to PT tx but requesting not to leave the room this am. Pt gaurding and grimacing throughout tx session, sumaya with exercises and slow performing all activities and exercises. Physician arrived during session to speak with and treat pt while performing bed exercises. Nurse arrived, instructed pt that she is not due for a pain shot until 9:15, but dr increased dosage on pain patch and she will get that increased patch as soon as pharmacy gets the order. Mental Status Patient Orientation: Person, Place, Time, Eyes Open, Situation Attachments: PEG Tube, IV Transfers Therapy Code Descriptions/Definitions Functional [place] Measure: 0=Not Assessed/NA 4=Minimal Assistance 1=Total Assistance 5=Supervision or Setup 2=Maximal Assistance 6=Modified [place] 3=Moderate Assistance 7=Complete [place] Therapy Quality Codes: 6 Independent with activity with or without an assistive device 5 Patient requires set up or clean up by helper. Patient completes activity by themselves 4 Supervision or touching assist (CGA). [place] provide cues , steadying assist 3 The helper provides less than half the effort to complete the activity 2 The helper provides more than half the effort to complete the activity 1 Dependent. The helper does all the effort to complete an activity 7 Patient refused to complete or attempt activity 9 The patient did not perform the activity before the current illness or injury 88 Not attempted due to Medical conditions or safety concerns Transfers (B, C, W/C) (FIM): 5 Scootin Rollin Supine to/from Sit: 5 Sit to/from Stand: 5 Gait Training Does the Patient Walk?: Yes Gait (FIM): 1 Distance (FIM): 1=up to 49 ft Distance: 20x2 Gait Level of Assist: 5 Gait Persons Needed: 1 Gait Assistive Device: FWW slow pace, decreased step length and height, guarded posture due to pain and weakness Exercises Supine Ex: Bridging, Ankle pumps, Quad Set, Glut sets, Lower trunk rotation, Heel Slides, Short Arc Quads, Straight leg raise, Hip abd/add (10 x 1) Supine Reps: 10 (2 sets) Seated Therapy Exercises: Long arc quads (simultaneously) Seated Reps: 15 Pt very slow at performing exercises, fatigues easily and quickly, shaky with sitting LAQ's. Treatments bed mobility, gait, transfers, toileting, ex Assessment Pt fatigues quickly and easily but slow, steady and guarded with gait using FWW. No LOB, requiring A to maneuver IV pole PT Short Term Goals Short Term Goals Time Frame: Dec 07, 2018 Transfers (B,C,W/C) (FIM): 6 Gait (FIM): 2 Gait Distance Comment: 50' Gait Level of Assist: 5 Gait Assistive Device: FWW Wheelchair Distance: See PT goals PT Water Safety Teacher Goals Water Safety Teacher Goals PT Water Safety Teacher Goals Time Frame: Dec 21, 2018 Transfers (B,C,W/C) (FIM): 6 Sit to Lying (QC): 6 Lying-Sitting on Side/Bed(QC): 6 Sit to Stand (QC): 6 Rollin Roll Left to Right (QC): 6 Chair/Sgm-ph-Sjupq Xfer(QC): 6 Car Transfer (QC): 6 Gait (FIM): 6 Distance: 150' Walk 10 feet (QC): 6 Walk 10ft-Uneven Surface(QC): 6 Walk 50ft with 2 Turns (QC): 6 Walk 150 ft (QC): 6 Gait Level of Assist: 6 Gait Assistive Device: FWW Stairs (FIM): 2 # of Steps: 4 1 Step (curb) (QC): 4 4 Steps (QC): 4 Stairs Level Of Assist: 5 PT Plan Treatment/Plan Treatment Plan: Continue Plan of Care Treatment Plan: Bed Mobility, Concurrent Therapy, Education, Functional Activity April, Functional Strength, Group Therapy, Gait, Safety, Therapeutic Exercise, Transfers Treatment Duration: Dec 21, 2018 Frequency: At least 5 of 7 days/Wk (IRF) Estimated Hrs Per Day: 1.5 hours per day Patient and/or Family Agrees t: Yes Safety Risks/Education Patient Education: Gait Training, Transfer Techniques, Safety Issues Teaching Recipient: Patient Teaching Methods: Discussion Response to Teaching: Verbalize Understanding Time/GCodes Time In: 800 Time Out: 915 Total Billed Treatment Time: 75 Total Billed Treatment 1 visit, GT x1 unit, EX x 3 units, FA x 1 unit JIM RILEY PTA Dec 03, 2018 08:21
--- NOTE | 2018-12-03 08:35 | NUR ---
Per nursing nursing report, patient appears depressed and has refused any oral intake of food or medications. Dr. Woodard has placed order for behavioral health consult to address depression.
[2018-12-03] MEDS: PANTOPRAZOLE 40 MG (PROTONIX) VIAL IV SCH ×2 (08:54→20:05)
[2018-12-03] MEDS: ENOXAPARIN 40 MG/0.4 ML (LOVENOX) SYR SC SCH (08:55)
[2018-12-03] MEDS: FLUCONAZOLE 200 MG/100 ML 50 ML, EMPTY IV BAG (PVC) 1 EA IV SCH ×2 (08:56)
[2018-12-03] MEDS: GABAPENTIN 100 MG (NEURONTIN) CAP PO SCH ×3 (08:57→19:24)
[2018-12-03] MEDS: GABAPENTIN 300 MG (NEURONTIN) CAP PO SCH ×3 (08:58→19:24)
[2018-12-03] MEDS: SENNA W/DOCUSATE (SENOKOT S) TABLET PO SCH (08:58)
[2018-12-03] MEDS: amLODIPine 5 MG (NORVASC) TAB PO SCH (08:58)
--- NOTE | 2018-12-03 09:17 | NUR ---
Behavioral Health notified of consult. Dr. Huang will see patient later this afternoon.
--- NOTE | 2018-12-03 10:10 | NUR ---
OPEN END SPINNING OPERATOR met with patient to complete initial assessment. Patient was alert and oriented x4 and agreeable to assessment. Patient resides alone in a multi-level home in [place], [place]. The home has forced steps at the entrance with hand rails and a flight of stairs within the home, both of which are highly utilized. Patient admitted to ARU from internally, with debility following third surgery for paraesophageal hernia. Most recent repair was completed at [facility] on . Due to complications patient is currently requiring TPN for all nutritional support and reports extreme fatigue. 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 Patient is eager to regain independence and return to work. Patient identifies son, Ricardo allred [place], at [phone] and daughter, Elizabeth of [place], at [phone] as primary contacts. Patient also identifies a large family support in the area. Insurance verified as [employer] through employer with required weekly updates. Patient does have prescription coverage and utilizes [facility] for pharmacy needs. Patient does not currently have a PCP but utilizes urgent care for needs, Surgeon identified as Dr. Roger Milner. OPEN END SPINNING OPERATOR reviewed typical rehab length of stay, insurance authorization process and weekly team conferences with patient, she expressed no concerns. OPEN END SPINNING OPERATOR will follow for appropriate discharge needs.
[2018-12-03] MEDS: FENTANYL PATCH REMOVAL TP SCH (10:39)
[2018-12-03] MEDS: fentaNYL PATCH 25 MCG (DURAGESIC) TOP SCH (10:40)
--- NOTE | 2018-12-03 10:45 | NUR ---
Pastoral care visit.
[2018-12-03] MEDS: RT-ALBUTEROL/IPRATROPIUM 3 ML (DUONEB) VIAL INH SCH ×3 (11:00→20:13)
--- NOTE | 2018-12-03 11:05 | Occupational Ther Daily Note ---
OT Current Status-Daily Note Subjective Pt seen in room, up in bed, agreeable to OT. Requested pain meds prior to OT so coordinated with nursing. Pain not rated. Appearance Alert, cooperative, flat affect. Looks fatigued and moves slowly Mental Status/Objective Therapy Code Descriptions/Definitions Functional [place] Measure: 0=Not Assessed/NA 4=Minimal Assistance 1=Total Assistance 5=Supervision or Setup 2=Maximal Assistance 6=Modified [place] 3=Moderate Assistance 7=Complete [place] Attachments: Central Line (covered) ADL-Treatment Pt supine to sit EOB without help. Sit to stand with SBA and walked SBA, FWW to bathroom. Toilet transfer SBA, tall toilet, grab bar, FWW. Managed clothing and hygiene SBA. Walked SBA to shower and got in/out of shower and on/off shower bench with SBA. Setup to turn on water . Pt washed and dried all parts setup, seated on shower bench, using hand held shower and grab bars. Pt able to wash hair herself. Walked SBA, FWW to sit to dress, including pants on and donning slipper socks. Pt declined to wear a shirt due to IVs, donning hospital gown instead. Sat at sink to brush teeth, comb hair, to conserve energy. Throughout, pt worked at a slow pace and took frequent recovery breaks. After ADLs, pt said that she needed to go back to bed and was too tired to do any more activity. Walked back to bed with SBA and able to get into bed without help. Pt left up in bed, all needs met. Therapy Code Descriptions/Definitions Functional [place] Measure: 0=Not Assessed/NA 4=Minimal Assistance 1=Total Assistance 5=Supervision or Setup 2=Maximal Assistance 6=Modified [place] 3=Moderate Assistance 7=Complete [place] Therapy Quality Codes: 6 Independent with activity with or without an assistive device 5 Patient requires set up or clean up by helper. Patient completes activity by themselves 4 Supervision or touching assist (CGA). [place] provide cues , steadying assist 3 The helper provides less than half the effort to complete the activity 2 The helper provides more than half the effort to complete the activity 1 Dependent. The helper does all the effort to complete an activity 7 Patient refused to complete or attempt activity 9 The patient did not perform the activity before the current illness or injury 88 Not attempted due to Medical conditions or safety concerns Grooming (FIM): 5 Bathing (FIM): 5 Lower Body Dressing (FIM): 5 On/Off Footwear (QC): 5 Toileting (FIM): 5 Transfers (B, C, W/C) (FIM): 5 Toilet/Commode Transfer (FIM): 5 Shower Transfer(FIM): 5 Education OT Patient Education: Modified ADL techniques, Progress toward Goal/Update tx plan, Purpose of tx/functional activities, Safety issues, Use of adapted equipment Teaching Recipient: Patient Teaching Methods: Demonstration, Discussion Response to Teaching: Verbalize Understanding, Return Demonstration, Reinforcement Needed OT Short Term Goals Short Term Goals Transfers (B,C,W/C) (FIM): 6 1=Demonstrate adherence to instructed precautions during ADL tasks. 2=Patient will verbalize/demonstrate understanding of assistive devices/ modifications for ADL. 3=Patient will improve strength/tolerance for activity to enable patient to perform ADL's. OT Senior Care Goals Employment Coordinator Goals Time Frame: Dec 21, 2018 Eating (FIM): 7 Eating (QC): 7 Groomin Oral Hygiene (QC): 6 Bathing(FIM): 6 Shower/Bathe Self (QC): 6 Upper Body Dressing(FIM): 6 Upper Body Dressing (QC): 6 Lower Body Dressing(FIM): 6 Lower Body Dressing (QC): 6 On/Off Footwear (QC): 6 Toileting(FIM): 6 Toileting Hygiene (QC): 6 Toilet/Commode Transfer(FIM): 6 Toilet/Commode Transfer (QC): 6 Shower Transfer(FIM): 6 Additional Goals: 1-Demonstrate ADL Tasks, 2-Verbalize Understanding, 3- ImproveStrength/April 1=Demonstrate adherence to instructed precautions during ADL tasks. 2=Patient will verbalize/demonstrate understanding of assistive devices/ modifications for ADL. 3=Patient will improve strength/tolerance for activity to enable patient to perform ADL's. OT Education/Plan Problem List/Assessment Pt to benefit from skilled OT intervention for ADL training, transfers, strengthening, and safety education to increase level of independence and allow safe discharge home. Discharge Recommendations Plan/Recommendations: Continue POC Treatment Plan/Plan of Care Patient would benefit from OT for education, treatment and training to promote independence in ADL's, mobility, safety and/or upper extremity function for ADL' s. Plan of Care: ADL Retraining, Functional Mobility, Group Exercise/Act as Ind, UE Funct Exercise/Act Treatment Duration: Dec 21, 2018 Frequency: At least 5 of 7 days/Wk (IRF) Estimated Hrs Per Day: 1.5 hours per day Rehab Potential: Fair Time/GCodes Start Time: 09:45 Stop Time: 10:30 Total Time Billed (hr/min): 45 Billed Treatment Time visit, 45 minutes ADL LOU KNOWLES OT Dec 03, 2018 11:05
--- NOTE | 2018-12-03 11:29 | NUR ---
K-pad to room per patient's request.
--- NOTE | 2018-12-03 11:44 | Physical Therapy Daily Note ---
PT Daily Note-Current Subjective Pt reports she is very worn out and fatigued from PT and OT this morning already , but agreeable to performing bed exercises Appearance Upon arrival, pt supine in bed resting with eyes closed, easily aroused. At end of session, pt laying supine in bed with HOB slightly elevated, call light, phone and bedside table within reach and all needs met at this time Mental Status Patient Orientation: Normal For Age Attachments: IV Transfers Therapy Code Descriptions/Definitions Functional [place] Measure: 0=Not Assessed/NA 4=Minimal Assistance 1=Total Assistance 5=Supervision or Setup 2=Maximal Assistance 6=Modified [place] 3=Moderate Assistance 7=Complete [place] Therapy Quality Codes: 6 Independent with activity with or without an assistive device 5 Patient requires set up or clean up by helper. Patient completes activity by themselves 4 Supervision or touching assist (CGA). [place] provide cues , steadying assist 3 The helper provides less than half the effort to complete the activity 2 The helper provides more than half the effort to complete the activity 1 Dependent. The helper does all the effort to complete an activity 7 Patient refused to complete or attempt activity 9 The patient did not perform the activity before the current illness or injury 88 Not attempted due to Medical conditions or safety concerns Exercises Supine Ex: Ankle pumps, Quad Set, Glut sets, Lower trunk rotation, Heel Slides , Short Arc Quads, Straight leg raise Supine Reps: 20 Treatments Ther ex, instruction in increasing activity and continuing LE exercises when in bed Assessment Pt fatigued from this morning's activities PT Short Term Goals Short Term Goals Time Frame: Dec 07, 2018 Transfers (B,C,W/C) (FIM): 6 Gait (FIM): 2 Gait Distance Comment: 50' Gait Level of Assist: 5 Gait Assistive Device: FWW Wheelchair Distance: See PT goals PT Senior Living Goals Senior Living Goals PT Business Administrator Goals Time Frame: Dec 21, 2018 Transfers (B,C,W/C) (FIM): 6 Sit to Lying (QC): 6 Lying-Sitting on Side/Bed(QC): 6 Sit to Stand (QC): 6 Rollin Roll Left to Right (QC): 6 Chair/Wev-ht-Ujrdl Xfer(QC): 6 Car Transfer (QC): 6 Gait (FIM): 6 Distance: 150' Walk 10 feet (QC): 6 Walk 10ft-Uneven Surface(QC): 6 Walk 50ft with 2 Turns (QC): 6 Walk 150 ft (QC): 6 Gait Level of Assist: 6 Gait Assistive Device: FWW Stairs (FIM): 2 # of Steps: 4 1 Step (curb) (QC): 4 4 Steps (QC): 4 Stairs Level Of Assist: 5 PT Plan Treatment/Plan Treatment Plan: Continue Plan of Care Treatment Plan: Bed Mobility, Concurrent Therapy, Education, Functional Activity April, Functional Strength, Group Therapy, Gait, Safety, Therapeutic Exercise, Transfers Treatment Duration: Dec 21, 2018 Frequency: At least 5 of 7 days/Wk (IRF) Estimated Hrs Per Day: 1.5 hours per day Patient and/or Family Agrees t: Yes Safety Risks/Education Pt educated in importance of increasing activities as tolerated and continuing performance of ex's when in bed or sitting up in chair. Pt verbalizing understanding Time/GCodes Time In: 1115 Time Out: 1135 Total Billed Treatment Time: 20 Total Billed Treatment 1 visit, EX x 1 unit JIM RILEY PTA Dec 03, 2018 11:44
--- NOTE | 2018-12-03 13:38 | Occupational Ther Daily Note ---
OT Current Status-Daily Note Subjective Pt seen in room, up in bed, agreeable to OT. No pain mentioned. Appearance Alert, cooperative, flat affect although she smiled a couple of times. Mental Status/Objective Therapy Code Descriptions/Definitions Functional [place] Measure: 0=Not Assessed/NA 4=Minimal Assistance 1=Total Assistance 5=Supervision or Setup 2=Maximal Assistance 6=Modified [place] 3=Moderate Assistance 7=Complete [place] ADL-Treatment Supine to sit EOB without help. Walked to bathroom to toilet and wash hands with SBA, FWW, no LOB observed. Managed clothing and hygiene with SBA. Walked back to room with SBA, FWW and into recliner, with no cues. Therapy Code Descriptions/Definitions Functional [place] Measure: 0=Not Assessed/NA 4=Minimal Assistance 1=Total Assistance 5=Supervision or Setup 2=Maximal Assistance 6=Modified [place] 3=Moderate Assistance 7=Complete [place] Therapy Quality Codes: 6 Independent with activity with or without an assistive device 5 Patient requires set up or clean up by helper. Patient completes activity by themselves 4 Supervision or touching assist (CGA). [place] provide cues , steadying assist 3 The helper provides less than half the effort to complete the activity 2 The helper provides more than half the effort to complete the activity 1 Dependent. The helper does all the effort to complete an activity 7 Patient refused to complete or attempt activity 9 The patient did not perform the activity before the current illness or injury 88 Not attempted due to Medical conditions or safety concerns Toileting (FIM): 5 Toilet/Commode Transfer (FIM): 5 Other Treatment Pt educ on how to do five different bilat UE exercises with red theraband (two were review from last week). Pt able to generally do 10-22 reps each exercise except caused some discomfort in L chest area (from chest tube). Also showed pt two AROM exercises that she can do for shoulders while sitting or supine. Pt return demo with cues. Pt educ on stretching vs pain at shoulder. She is able to manage how much she moves and verbalized to increase range as tolerated. Also did strengthening with red theraputty and beads (medium resistance) - pt educ that she can do this on her own and encouraged to do at least once more today. Pt did all exercises slowly and required recovery breaks after each set of exercises due to decreased strength and activity tolerance. Also observed trembling due to weakness during exercises. Pt left up in recliner, all needs met. Education OT Patient Education: Exercise program, Modified ADL techniques, Progress toward Goal/Update tx plan, Purpose of tx/functional activities Teaching Recipient: Patient Teaching Methods: Demonstration, Discussion Response to Teaching: Verbalize Understanding, Return Demonstration, Reinforcement Needed OT Short Term Goals Short Term Goals Transfers (B,C,W/C) (FIM): 6 1=Demonstrate adherence to instructed precautions during ADL tasks. 2=Patient will verbalize/demonstrate understanding of assistive devices/ modifications for ADL. 3=Patient will improve strength/tolerance for activity to enable patient to perform ADL's. OT Lockstitch Shoulder Joiner Goals Lockstitch Shoulder Joiner Goals Time Frame: Dec 21, 2018 Eating (FIM): 7 Eating (QC): 7 Groomin Oral Hygiene (QC): 6 Bathing(FIM): 6 Shower/Bathe Self (QC): 6 Upper Body Dressing(FIM): 6 Upper Body Dressing (QC): 6 Lower Body Dressing(FIM): 6 Lower Body Dressing (QC): 6 On/Off Footwear (QC): 6 Toileting(FIM): 6 Toileting Hygiene (QC): 6 Toilet/Commode Transfer(FIM): 6 Toilet/Commode Transfer (QC): 6 Shower Transfer(FIM): 6 Additional Goals: 1-Demonstrate ADL Tasks, 2-Verbalize Understanding, 3- ImproveStrength/April 1=Demonstrate adherence to instructed precautions during ADL tasks. 2=Patient will verbalize/demonstrate understanding of assistive devices/ modifications for ADL. 3=Patient will improve strength/tolerance for activity to enable patient to perform ADL's. OT Education/Plan Problem List/Assessment Pt to benefit from skilled OT intervention for ADL training, transfers, strengthening, and safety education to increase level of independence and allow safe discharge home. Discharge Recommendations Plan/Recommendations: Continue POC Treatment Plan/Plan of Care Patient would benefit from OT for education, treatment and training to promote independence in ADL's, mobility, safety and/or upper extremity function for ADL' s. Plan of Care: ADL Retraining, Functional Mobility, Group Exercise/Act as Ind, UE Funct Exercise/Act Treatment Duration: Dec 21, 2018 Frequency: At least 5 of 7 days/Wk (IRF) Estimated Hrs Per Day: 1.5 hours per day Rehab Potential: Fair Time/GCodes Start Time: 12:39 Stop Time: 13:24 Total Time Billed (hr/min): 45 Billed Treatment Time visit, 10 minutes ADL, 35 minutes exercise LOU KNOWLES OT Dec 03, 2018 13:37
--- NOTE | 2018-12-03 13:41 | NUR ---
Dr. Huang here to see patient.
--- NOTE | 2018-12-03 16:15 | NUR ---
SPO2 88% ON ROOM AIR @ REST. REPLACED O2 @ 2 LPM. SPO2 INCREASED TO 94%
[2018-12-03] MEDS: SODIUM CHLORIDE IV SCH ×11 (17:06)
[2018-12-03] MEDS: SODIUM ACETATE IV SCH ×11 (17:06)
[2018-12-03] MEDS: [UNRECOGNIZED DRUG - OTHER] IV SCH ×11 (17:06)
[2018-12-03] MEDS: LACTATED RINGERS 1,000 ML IV SCH (17:08)
--- NOTE | 2018-12-03 17:18 | NUR ---
Dr. Milner aware of consult. Will be in to see patient later this PM.
[2018-12-03 17:27] VITALS: BP 146/87
[2018-12-03] MEDS: ADVAIR HFA 115/21 MCG INHALER 8 GM IH SCH (20:15)
--- NOTE | 2018-12-03 20:30 | NUR ---
Dr. Milner here to see pt. No new orders at this time.
[2018-12-04 05:59] VITALS: BP 136/88
--- NOTE | 2018-12-04 08:06 | Behavioral Health Consult ---
Consult- Consult Date Seen by Provider: Dec 03, 2018 Time Seen by Provider: 13:40 [facility] PSYCHOLOGICAL CONSULTATION PATIENT: Eloise Cooley DATE: 1960 DATES OF EVALUATION: 12/03/18 (13:40-14:20) DATE OF REPORT: 12/04/18 REFERRAL QUESTION: Eloise Cooley is a 58 year-old female who was admitted to the hospital due to complications from a hernia surgery. She presented with pneumonia and a collapsed lung. Dr. Woodard asked for a psychological consultation to evaluate for depression. TEST ADMINISTERED: Clinical Interview with Patient PRESENTING PROBLEMS: Eloise Cooley reports that things have not gone well after having her third surgery to repair a hernia on 11/14/18 in [place]. She states that she recovered from her first two surgeries well but that has not been the case this time. She states that after getting home, she started having issues with her breathing. She came to [facility] due to her breathing issues. She states that she had pneumonia and a collapsed lung. She states that she required a chest tube and also contracted MRSA. She states that she gets out of breath easily and was not receiving as many breathing treatments as she needed upon getting to the rehabilitation unit. She states that she has been off oxygen for four days. She states that she would like to go home but knows that she must be MRSA-free and needs to start eating. She states that it took her about two and a half weeks to begin eating solid foods after her two previous hernia surgeries. She states that [place] ices were what she ate first. She sounds like she may be willing to try an [place] ice but is nervous about not being able to keep it down. CURRENT/PREVIOUS MENTAL HEALTH TREATMENT: Eloise denies any history of mental health problems or treatment. She denied any family history of mental illness either. MEDICAL HISTORY: See medical chart for detailed history. She denies any major medical issues prior to her three hernia surgeries. RECREATIONAL DRUG USAGE: This area was not assessed. VOCATIONAL/EDUCATIONAL HISTORIES: Eloise reports that she has worked for [employer] for the past nine years. She states that was transferred to the [employer] a month before it opened in [place] three years ago. 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 She states that she really enjoys her job. 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 FAMILY AND SOCIAL HISTORIES/SOCIAL SUPPORT: Eloise reports that she has two adult children who live locally. She states that she has two step grandsons from her daughter, who works at [employer]. She states that her son has a 7- year-old son and a 2-month-old daughter. She states that her 18 years ago from lung cancer. She states that she has lost five additional family members from lung cancer since his . She states that she has a brother and sister who live in the area as well as her mother, aunts and uncles. BEHAVIORAL OBSERVATIONS/MENTAL STATUS: The patient was seen in her hospital room as she was sitting up in a chair dressed in a hospital gown. She had mostly flat affect but did smile and laugh a few times during the interview. She admits that it is difficult staying in her room due to contact precautions. She states that her cough keeps her from going out around people along with MRSA. She denies having much of an appetite which is compounded by the fact that she is worried that she will cough up whatever she drinks or eats. She states that she has not slept well at the hospital either as she states that it is impossible to get comfortable. SUMMARY: Ms. Eloise Cooley is currently at the hospital due to complications from a hernia surgery. She appears frustrated with her current predicament as she is on contact precautions, has difficulty breathing, and has problems keeping liquids down at this time. She was encouraged to try eating soon as that could help with her energy and to get out of her room as the precautions allow. DIAGNOSTIC IMPRESSIONS: F43.21 Adjustment Disorder with Depressed Mood (due to surgery and complications) Thank you for the opportunity to consult on this patient. Copy Copies To 1: BISHOP WOODARD JEFFREY M PSYD Dec 04, 2018 08:06
--- NOTE | 2018-12-04 08:38 | PM&R Progress Note ---
Subjective HPI/CC On Admission Date Seen by Provider: Dec 04, 2018 Time Seen by Provider: 08:15 CC: Critical illness myopathy HPI: This is a 58yoWF patient of Urgent Care Dr Grande who presented with increased shortness of breath and dysphagia 8 days following robotic assisted repair of recurrent paraesophageal hernia (11/14/18) in [place]. CT scan revealed a left large anterior pneumothorax with bilateral atelectasis and subcutaneous emphysema so chest tube was placed by Dr Milner and she was managed in the ICU aggressively by Dr Rouse s/p bronchoscopy and has sustained significant debility in need of IRF for aggressive therapies in order to ultimately return home. 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 She is currently being treated for MRSA pneumonitis confirmed on bronch cultures and maintained on O2 and Nebs and DVT PPx. Subjective/Events-last exam Reviewed behavioral health consultation and adjustment disorder confirmed Increased Fentanyl patch from 12 to 25 and increasing the time between Morphine injections of 2mg IV Q6hrs but that is not working so will increase Morphine back to Q4 hrs while we wait for CT scan Dr Milner evaluated her and assessed no reason for her not to be able to eat solid food and recommended her to increase effort in trying or feeding tube will need to be placed Dr. Milner recommendations are appreciated Cough is productive Adjusted breathing treatments to be scheduled yesterday to TID MRSA sputum will be tested tomorrow to DC isolation Sits in the room in the dark and just lays there Review of Systems General: Fatigue Pulmonary: Dyspnea, Cough Cardiovascular: Chest Pain Objective Exam Vital Signs Vital Signs Date Time Temp Pulse Resp B/P (MAP) Pulse Ox O2 Delivery O2 Flow Rate FiO2 12/04/18 05:59 99.2 102 20 136/88 (104) 94 Room Air Capillary Refill : General Appearance: No Apparent Distress, WD/WN, Chronically ill, Thin HEENT: PERRL/EOMI, Normal ENT Inspection, Pharynx Normal, Moist Mucous Membranes Neck: Full Range of Motion, Normal Inspection, Non Tender, Supple Respiratory: Chest Non Tender, No Accessory Muscle Use, No Respiratory Distress , Crackles, Decreased Breath Sounds, Wheezing Cardiovascular: Regular Rate, Rhythm, No Edema, No Gallop, No JVD, No Murmur, Tachycardia Gastrointestinal: Normal Bowel Sounds, No Organomegaly, No Pulsatile Mass, Non Tender, Soft Back: Normal Inspection, No CVA Tenderness, No Vertebral Tenderness Extremity: Normal Capillary Refill, Normal Inspection, Normal Range of Motion, Non Tender, No Calf Tenderness, No Pedal Edema Neurologic/Psychiatric: Alert, Oriented x3, No Motor/Sensory Deficits, Depressed Affect Skin: Normal Color, Warm/Dry Lymphatic: No Adenopathy Results/Procedures Lab Patient resulted labs reviewed. Assessment/Plan Assessment and Plan Assess & Plan/Chief Complaint (1) Critical illness myopathy (2) Paraesophageal hiatal hernia s/p repair in [place] after [address] Milner now with present complications (3) Debility (4) Protein-energy malnutrition (5) MRSA pneumonia much improved yesterday, 12/01/18 but now worsened with increased sputum production and chest pain with cough so will check CT scan (6) Elevated blood pressure reading will monitor only (7) Epigastric pain (8) GERD (gastroesophageal reflux disease) (9) Anemia (10) Thrombocytosis (11)Severe dysphagia requiring TPN but no source of inability to eat per Dr Milner and he will initiate calorie count and encouraged her to eat as much as possible but still may need a feeding tube (12) Acute depression with decreased motivation dx with Adjustment D/O with depression due to situation Plan: Supportive care TPN to continue but increase soft diet with calorie count per Dr Milner Ordered labs Complete Vanc today but now with increased sputum production along with increased cough so will check CT chest Monitor BP and place Clonidine patch Yestrday we increased Fentanyl patch to 25mcg dose and decreased Morphine IV to 2mg IV Q 6hours but increased pain in her back with cough has required increase in Morphine again (1) Critical illness myopathy (2) MRSA pneumonia (3) Paraesophageal hiatal hernia (4) Anemia (5) Thrombocytosis (6) Elevated blood pressure reading (7) Debility (8) GERD (gastroesophageal reflux disease) (9) Epigastric pain (10) Protein-energy malnutrition Clinical Quality Measures DVT/VTE Risk/Contraindication: Risk Factor Score Per Nursin RFS Level Per Nursing on Admit: 2=Moderate BISHOP VAN DO Dec 04, 2018 08:38
--- NOTE | 2018-12-04 08:38 | Progress Note (SOAP) ---
Subjective Date Seen by a Provider: Dec 04, 2018 Time Seen by a Provider: 08:31 Subjective/Events-last exam patient appears to be apprehensive about inadequate pain control from the left chest wall. Poor strength to facilitate expectoration of sputum. rehabilitation potential is limited due to isolation. Review of Systems General: No Chills, No Night Sweats, No Fatigue, No Malaise HEENT: No Head Aches, No Eye Pain, No Ear Pain, No Dysphasia, No Sinus Congestion, No Post Nasal Drip, No Sore Throat Pulmonary: Cough, Pleuritic Chest Pain Cardiovascular: No: Chest Pain, Palpitations, Orthopnea, Paroxysmal Noc. Dyspnea, Edema, Lt Headedness Gastrointestinal: No: Nausea, Vomiting, Abdominal Pain, Diarrhea, Constipation , Melena, Hematochezia Genitourinary: No Dysuria, No Frequency, No Incontinence, No Hematuria, No Retention Musculoskeletal: other Neurological: No: Weakness, Numbness, Incoordination, Change in speech, Confusion, Seizures, Other Objective Exam Vital Signs Date Time Temp Pulse Resp B/P (MAP) Pulse Ox O2 Delivery O2 Flow Rate FiO2 12/04/18 05:59 99.2 102 20 136/88 (104) 94 Room Air 12/03/18 20:45 Room Air 12/03/18 20:15 88 Room Air 12/03/18 17:27 99.4 107 16 146/87 (106) 94 Room Air 12/03/18 16:15 88 Room Air 12/03/18 11:01 90 Room Air 12/03/18 09:37 Room Air I & O 12/04/18 06:59 Intake Total 170 ml Balance 170 ml Capillary Refill : General Appearance: No Apparent Distress Neck: Normal Inspection Respiratory: Decreased Breath Sounds Cardiovascular: Regular Rate, Rhythm Gastrointestinal: non tender, soft Extremity: Normal Inspection Neurologic/Psychiatric: Alert, Oriented x3 Skin: Warm/Dry Other comments breath sounds diminished over the left lower chest. No chest wall tenderness. Abdomen soft. Results Lab Laboratory Tests 12/04/18 05:32: Glucometer 117H Assessment/Plan Assessment/Plan Assess & Plan/Chief Complaint lady with recurrent paraesophageal hernia, repaired using minimally invasive technique quite recently. 360 fundoplication. Dysphagia, improving. Apprehension about swallowing. Left pneumothorax with pneumonia, improving. Will obtain a CT of the chest with IV contrast to rule out an empyema or undrained hemothorax.encouraged to increase oral output and initiate calorie count. We'll optimize bronchodilator therapy with involvement of the forest patrolman. Final Diagnosis recurrent paraesophageal hernia, postoperative status. Left pneumothorax. Left atelectasis with MRSA pneumonia. General debility. Clinical Quality Measures DVT/VTE Risk/Contraindication: Risk Factor Score Per Nursin RFS Level Per Nursing on Admit: 2=Moderate CICI SEVILLA MD Dec 04, 2018 08:38
[2018-12-04] MEDS: SENNA W/DOCUSATE (SENOKOT S) TABLET PO SCH (09:00)
[2018-12-04] MEDS: amLODIPine 5 MG (NORVASC) TAB PO SCH (09:00)
[2018-12-04] MEDS: GABAPENTIN 300 MG (NEURONTIN) CAP PO SCH ×3 (09:00→20:54)
[2018-12-04] MEDS: GABAPENTIN 100 MG (NEURONTIN) CAP PO SCH ×3 (09:00→20:54)
--- NOTE | 2018-12-04 09:36 | NUR ---
TPN: 58 Y/O F, HT 59", ABW 52KG, IBW 43.2KG, ADJBW45.6KG, BMI 23. CC: LEFT ANTERIOR PNEUMOTHORAX. LABS NA 133, (K,CL,CO2,BUN,CA,PHOS,MG WNL). 9TH DAY OF TPN, TPN RUNNING AT 48 ML/HR PROVIDING 1220 KCAL WITH 60 GM PROTEIN, LR AT 50ML/HR. PT DIET ON CL. GOAL: 25-30 KCAL/KG (6809-8126 KCAL) 1.2-1.5 GM/KG PROTEIN (54-68 GM PROTEIN). PLAN: INCREASE LIPID SLIGHTLY TO PROVIDE 30% OF KCAL, TPN WILL NOW PROVIDE 1320 KCAL WITH 60 GM PROTEIN. WHEN PT CONSUMING 60% OF NEEDED KCAL ORALLY, WILL TAPER AND DC TPN.
[2018-12-04] MEDS: ENOXAPARIN 40 MG/0.4 ML (LOVENOX) SYR SC SCH (09:40)
[2018-12-04] MEDS: morphine INJ 4 MG/ML 1 ML (VIAL/SYRINGE) IVP PRN ×3 (09:40→20:48)
[2018-12-04 09:51] LABS: BASOPHILS # (AUTO) 0.1 10^3/uL (0.0-0.1); BASOPHILS % (AUTO) 1 % (0-10); EOSINOPHILS # (AUTO) 0.6 10^3/uL (0.0-0.3); EOSINOPHILS % (AUTO) 6 % (0-10); HEMATOCRIT 34 % (35-52); HEMOGLOBIN 10.9 G/DL (11.5-16.0); LYMPHOCYTES # (AUTO) 1.6 X 10^3 (1.0-4.0); LYMPHOCYTES % (AUTO) 15 % (12-44); MEAN CORPUSCULAR HEMOGLOBIN 29 PG (25-34); MEAN CORPUSCULAR HGB CONC 33 G/DL (32-36); MEAN CORPUSCULAR VOLUME 90 FL (80-99); MEAN PLATELET VOLUME 8.2 FL (7.4-10.4); MONOCYTES # (AUTO) 0.9 X 10^3 (0.0-1.0); MONOCYTES % (AUTO) 9 % (0-12); NEUTROPHILS # (AUTO) 7.4 X 10^3 (1.8-7.8); NEUTROPHILS % (AUTO) 70 % (42-75); PLATELET COUNT 425 10^3/uL (130-400); RED CELL DISTRIBUTION WIDTH 13.6 % (10.0-14.5); WHITE BLOOD COUNT 10.6 10^3/uL (4.3-11.0)
[2018-12-04] MEDS: ADVAIR HFA 115/21 MCG INHALER 8 GM IH SCH ×2 (09:52→21:12)
[2018-12-04] MEDS: RT-ALBUTEROL/IPRATROPIUM 3 ML (DUONEB) VIAL INH SCH ×3 (09:52→21:09)
[2018-12-04 10:10] LABS: ALANINE AMINOTRANSFERASE 70 U/L (0-55); ALBUMIN 2.8 GM/DL (3.2-4.5); ALKALINE PHOSPHATASE 230 U/L (40-136); BILIRUBIN,TOTAL 0.3 MG/DL (0.1-1.0); BUN/CREATININE RATIO 19; CARBON DIOXIDE 23 MMOL/L (21-32); CHLORIDE 103 MMOL/L (98-107); CREATININE SERUM 0.59 MG/DL (0.60-1.30); GFR ESTIMATED > 60; GLUCOSE 125 MG/DL (70-105); POTASSIUM 4.1 MMOL/L (3.6-5.0); SODIUM 129 MMOL/L (135-145); TOTAL PROTEIN 6.9 GM/DL (6.4-8.2)
--- NOTE | 2018-12-04 11:11 | Occupational Ther Daily Note ---
OT Current Status-Daily Note Subjective Pt in bed, alert, oriented, cooperative & agree for therapy. Pain Numeric Pain Scale: 7 Location: Joint Location Body Site: Back Pain Description: Throbbing Mental Status/Objective Patient Orientation: Person, Place, Time Therapy Code Descriptions/Definitions Functional [place] Measure: 0=Not Assessed/NA 4=Minimal Assistance 1=Total Assistance 5=Supervision or Setup 2=Maximal Assistance 6=Modified [place] 3=Moderate Assistance 7=Complete [place] Attachments: Chest Tube, IV, Oxygen, Saline Lock, SCD's ADL-Treatment Patient supine to sit in bed with CGA due to coughing & SOB..Pt sit at the end of bed prior to get up due to weakness & SOB. Pt walked to bathroom with FWW to toilet and wash hands with SBA due to unsteady standing & weakness. . Pt Independent in pulling down depends & lifting up front& back hospital Gown prior toileting and hygiene with SBA. Pt walked back to room with SBA with fww and back in to bed . Pt had sponge bath using " READY-BATH " Warm Wipes.. Pt needs min A to wipe back. Comb her hairs with set up.Pt [facility] gown front & back with min A . Pt needs several rest periods between each activity. Endurance poor. Pt O2 dependent. SpO2 94% Pt is on 1 liter continuous.Pt completed 20 reps x 2 lbs wt biceps curl & 5 reps with 2 lbs both shoulder forward flexion.ex with 2 rest periods. Pt seen in the afternoon for rest of the treatment remained & Co-treated with PT for 30 minutes. Pt saw PT/OT for co-treat due to pt's activity tolerance decrease as well as increased coughing and sputum with upright activity which continues to lead to quick fatigue of patient. Pt c/o pain in back 7/10 on VAS. Pt completes UE EX and UE Resistance EX. 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 Pt takes rest breaks as needed. Pt transfers from bed to standing using bed rails and FWW. Pt returns to bed to rest at end of tx with all needs met. Therapy Code Descriptions/Definitions Functional [place] Measure: 0=Not Assessed/NA 4=Minimal Assistance 1=Total Assistance 5=Supervision or Setup 2=Maximal Assistance 6=Modified [place] 3=Moderate Assistance 7=Complete [place] Therapy Quality Codes: 6 Independent with activity with or without an assistive device 5 Patient requires set up or clean up by helper. Patient completes activity by themselves 4 Supervision or touching assist (CGA). [place] provide cues , steadying assist 3 The helper provides less than half the effort to complete the activity 2 The helper provides more than half the effort to complete the activity 1 Dependent. The helper does all the effort to complete an activity 7 Patient refused to complete or attempt activity 9 The patient did not perform the activity before the current illness or injury 88 Not attempted due to Medical conditions or safety concerns Eating (FIM): 7 Eating (QC): 6 Grooming (FIM): 5 Oral Hygiene (QC): 5 Bathing (FIM): 4 (spong-bath . Pt fatigue soon due to weakness & SOB. & thus requires frequent rest periods.) Upper Body (FIM): 4 (Pt fatigue soon due to weakness & SOB. & thus requires frequent rest periods.) Upper Body Dressing (QC): 4 On/Off Footwear (QC): 4 Toileting (FIM): 5 Toileting Hygiene (QC): 5 Transfers (B, C, W/C) (FIM): 6 Toilet/Commode Transfer (FIM): 6 Toilet Transfer (QC): 5 Tub Transfer(FIM): 0 Shower Transfer(FIM): 0 Education OT Patient Education: Correct positioning, Energy conservation, Safety issues Teaching Recipient: Patient Teaching Methods: Demonstration Response to Teaching: Verbalize Understanding OT Short Term Goals Short Term Goals Transfers (B,C,W/C) (FIM): 6 1=Demonstrate adherence to instructed precautions during ADL tasks. 2=Patient will verbalize/demonstrate understanding of assistive devices/ modifications for ADL. 3=Patient will improve strength/tolerance for activity to enable patient to perform ADL's. OT Nursing Home Goals Nursing Home Goals Time Frame: Dec 21, 2018 Eating (FIM): 7 Eating (QC): 7 Groomin Oral Hygiene (QC): 6 Bathing(FIM): 6 Shower/Bathe Self (QC): 6 Upper Body Dressing(FIM): 6 Upper Body Dressing (QC): 6 Lower Body Dressing(FIM): 6 Lower Body Dressing (QC): 6 On/Off Footwear (QC): 6 Toileting(FIM): 6 Toileting Hygiene (QC): 6 Toilet/Commode Transfer(FIM): 6 Toilet/Commode Transfer (QC): 6 Shower Transfer(FIM): 6 Additional Goals: 1-Demonstrate ADL Tasks, 2-Verbalize Understanding, 3- ImproveStrength/April 1=Demonstrate adherence to instructed precautions during ADL tasks. 2=Patient will verbalize/demonstrate understanding of assistive devices/ modifications for ADL. 3=Patient will improve strength/tolerance for activity to enable patient to perform ADL's. OT Education/Plan Problem List/Assessment Assessment: Decreased Activ Tolerance, Decreased Safety Aware, Decreased UE Strength, Impaired Funct Balance, Impaired Self-Care Skills Pt to benefit from skilled OT intervention for ADL training, transfers, strengthening, and safety education to increase level of independence and allow safe discharge home. Discharge Recommendations Plan/Recommendations: Continue POC Therapy D/C Recommendations: Home Independently Equpiment Recommendations-D/C: Extended Bath Bench, Extended Shower Sprayer, Inside Contractor Sales Barriers to Progress Fatigue soon, SOB, Poor endurance. Patient/Family Goals To return home Independently . Treatment Plan/Plan of Care Treatment,Training & Education: Yes Patient would benefit from OT for education, treatment and training to promote independence in ADL's, mobility, safety and/or upper extremity function for ADL' s. Plan of Care: ADL Retraining, Functional Mobility, Group Exercise/Act as Ind, UE Funct Exercise/Act Treatment Duration: Dec 21, 2018 Frequency: 5 times per week Estimated Hrs Per Day: 1.5 hours per day Agreement: Yes Rehab Potential: Good Time/GCodes Start Time: 08:30 (08:30 am-09:30 am= 60 min.) Stop Time: 13:30 ([id number] = 30 minutes Co-Treated with PT.) Total Time Billed (hr/min): 90 Billed Treatment Time 1, ADL 45 min, FA 15 min, Ex 30 min. Total 90 minutes. Pt Co-Treated with PT for 30 minutes. [id number] . YULY MARTIN OT Dec 04, 2018 11:11
[2018-12-04] MEDS: LACTOBACILLUS ACIDOPHILUS (PROBIOTIC) CAPSULE PO SCH ×3 (12:00→20:55)
--- NOTE | 2018-12-04 12:06 | Physical Therapy Daily Note ---
PT Daily Note-Current Subjective Pt laying Supine in bed upon arrival. Pt appears very anxious. Pt agrees to PT. Pain Numeric Pain Scale: 6 Location: Upper, Dorsal Location Body Site: Back Pain Description: Ache, Tightness Comment: Pt reports achy in chest and back between shoulder blades. Mental Status Patient Orientation: Person, Place, Situation Attachments: IV Transfers Therapy Code Descriptions/Definitions Functional [place] Measure: 0=Not Assessed/NA 4=Minimal Assistance 1=Total Assistance 5=Supervision or Setup 2=Maximal Assistance 6=Modified [place] 3=Moderate Assistance 7=Complete [place] Therapy Quality Codes: 6 Independent with activity with or without an assistive device 5 Patient requires set up or clean up by helper. Patient completes activity by themselves 4 Supervision or touching assist (CGA). [place] provide cues , steadying assist 3 The helper provides less than half the effort to complete the activity 2 The helper provides more than half the effort to complete the activity 1 Dependent. The helper does all the effort to complete an activity 7 Patient refused to complete or attempt activity 9 The patient did not perform the activity before the current illness or injury 88 Not attempted due to Medical conditions or safety concerns Scootin Rollin Supine to/from Sit: 5 Sit to/from Stand: 5 Sit to Stand (QC): 5 Weight Bearing Right Lower Extremity: Right Full Weight Bearing Left Lower Extremity: Left Full Weight Bearing Gait Training Does the Patient Walk?: Yes Distance (FIM): 3=150 ft Distance: 150' Walk 10 feet (QC): 5 Walk 50 ft with 2 Turns(QC): 5 Walk 150 ft (QC): 5 Gait Level of Assist: 5 Gait Persons Needed: 1 Gait Assistive Device: FWW Pt walks with slow, timid gait pattern. Exercises Supine Ex: Ankle pumps, Quad Set, Heel Slides, Hip abd/add Supine Reps: 15 Seated Therapy Exercises: Sit to stand, Long arc quads Seated Reps: 10 Treatments Pt completes Supine EX in bed as THREAD CUTTER TENDER explains the need to be upright to improve breathing and walking to improve mobility & activity tolerance. Pt uses restroom then puts proper PRE on to walk in hallway before CT scan. Radiology arrives to take pt for CT. PT will finish tx in pm. Assessment Current Status: Good Progress Pt is very apprehensive during tx but completes well with encouragement. PT Short Term Goals Short Term Goals Time Frame: Dec 07, 2018 Transfers (B,C,W/C) (FIM): 6 Gait (FIM): 2 Gait Distance Comment: 50' Gait Level of Assist: 5 Gait Assistive Device: FWW Wheelchair Distance: See PT goals PT Correspondence Renew Clerk Goals Jail Goals PT Correspondence Renew Clerk Goals Time Frame: Dec 21, 2018 Transfers (B,C,W/C) (FIM): 6 Sit to Lying (QC): 6 Lying-Sitting on Side/Bed(QC): 6 Sit to Stand (QC): 6 Rollin Roll Left to Right (QC): 6 Chair/Ras-us-Udljr Xfer(QC): 6 Car Transfer (QC): 6 Gait (FIM): 6 Distance: 150' Walk 10 feet (QC): 6 Walk 10ft-Uneven Surface(QC): 6 Walk 50ft with 2 Turns (QC): 6 Walk 150 ft (QC): 6 Gait Level of Assist: 6 Gait Assistive Device: FWW Stairs (FIM): 2 # of Steps: 4 1 Step (curb) (QC): 4 4 Steps (QC): 4 Stairs Level Of Assist: 5 PT Plan Problem List Problem List: Activity Tolerance, Functional Strength, Safety, Gait Treatment/Plan Treatment Plan: Continue Plan of Care Treatment Plan: Bed Mobility, Concurrent Therapy, Education, Functional Activity April, Functional Strength, Group Therapy, Gait, Safety, Therapeutic Exercise, Transfers Treatment Duration: Dec 21, 2018 Frequency: At least 5 of 7 days/Wk (IRF) Estimated Hrs Per Day: 1.5 hours per day Patient and/or Family Agrees t: Yes Safety Risks/Education Patient Education: Gait Training, Correct Positioning, Safety Issues Teaching Recipient: Patient Teaching Methods: Discussion Response to Teaching: Verbalize Understanding Time/GCodes Time In: 1000 Time Out: 1035 Total Billed Treatment Time: 35 Total Billed Treatment 1, EX (20m) & GT (15m) G Codes Necessary: MARISSA Gaming PTA Dec 04, 2018 12:06
[2018-12-04] MEDS: KETOROLAC 15 MG/ML VIAL IVP PRN (12:28)
[2018-12-04] MEDS: LACTATED RINGERS 1,000 ML IV SCH (12:28)
--- NOTE | 2018-12-04 13:56 | Physical Therapy Daily Note ---
PT Daily Note-Current Subjective Pt sitting up in bed upon arrival. Pt visiting with family. Pt agrees to PT/ OT co-treat. Pain Numeric Pain Scale: 6 Location: Upper, Dorsal Location Body Site: Back Pain Description: Ache, Tightness Comment: Pt reports ache in chest & back again this afternoon. Mental Status Patient Orientation: Person, Place, Situation Transfers Therapy Code Descriptions/Definitions Functional [place] Measure: 0=Not Assessed/NA 4=Minimal Assistance 1=Total Assistance 5=Supervision or Setup 2=Maximal Assistance 6=Modified [place] 3=Moderate Assistance 7=Complete [place] Therapy Quality Codes: 6 Independent with activity with or without an assistive device 5 Patient requires set up or clean up by helper. Patient completes activity by themselves 4 Supervision or touching assist (CGA). [place] provide cues , steadying assist 3 The helper provides less than half the effort to complete the activity 2 The helper provides more than half the effort to complete the activity 1 Dependent. The helper does all the effort to complete an activity 7 Patient refused to complete or attempt activity 9 The patient did not perform the activity before the current illness or injury 88 Not attempted due to Medical conditions or safety concerns Scootin Supine to/from Sit: 5 Sit to/from Stand: 5 Sit to Stand (QC): 5 Weight Bearing Right Lower Extremity: Right Full Weight Bearing Left Lower Extremity: Left Full Weight Bearing Gait Training Does the Patient Walk?: Yes Distance (FIM): 3=150 ft Distance: 175' Walk 10 feet (QC): 5 Walk 50 ft with 2 Turns(QC): 5 Walk 150 ft (QC): 5 Gait Level of Assist: 5 Gait Persons Needed: 1 Gait Assistive Device: FWW Pt walked increased distance this afternoon. Wheelchair Training Does the Pt Use a Wheelchair?: No Exercises Supine Ex: Ankle pumps, Quad Set, Glut sets, Heel Slides, Straight leg raise, Hip abd/add Supine Reps: 15 Treatments Pt saw PT/OT for co-treat due to pt's activity tolerance decrease as well as increased coughing and sputum with upright activity which continues to lead to quick fatigue of pt. Pt completes LE EX and UE Resistance EX. Pt takes rest breaks as needed. Pt transfers from bed to standing using bed rails and FWW. Pt uses restroom before ambulating in hallway. Pt returns to bed to rest at end of tx with all needs met. Assessment Current Status: Good Progress Pt's activity tolerance is increasing although is still down from PLOF. PT Short Term Goals Short Term Goals Time Frame: Dec 07, 2018 Transfers (B,C,W/C) (FIM): 6 Gait (FIM): 2 Gait Distance Comment: 50' Gait Level of Assist: 5 Gait Assistive Device: FWW Wheelchair Distance: See PT goals PT Card Filer Goals Jail Goals PT Card Filer Goals Time Frame: Dec 21, 2018 Transfers (B,C,W/C) (FIM): 6 Sit to Lying (QC): 6 Lying-Sitting on Side/Bed(QC): 6 Sit to Stand (QC): 6 Rollin Roll Left to Right (QC): 6 Chair/Hto-yn-Nwkjv Xfer(QC): 6 Car Transfer (QC): 6 Gait (FIM): 6 Distance: 150' Walk 10 feet (QC): 6 Walk 10ft-Uneven Surface(QC): 6 Walk 50ft with 2 Turns (QC): 6 Walk 150 ft (QC): 6 Gait Level of Assist: 6 Gait Assistive Device: FWW Stairs (FIM): 2 # of Steps: 4 1 Step (curb) (QC): 4 4 Steps (QC): 4 Stairs Level Of Assist: 5 PT Plan Problem List Problem List: Activity Tolerance, Functional Strength, Safety, Gait, Transfer Treatment/Plan Treatment Plan: Continue Plan of Care Treatment Plan: Bed Mobility, Concurrent Therapy, Education, Functional Activity April, Functional Strength, Group Therapy, Gait, Safety, Therapeutic Exercise, Transfers Treatment Duration: Dec 21, 2018 Frequency: At least 5 of 7 days/Wk (IRF) Estimated Hrs Per Day: 1.5 hours per day Patient and/or Family Agrees t: Yes Safety Risks/Education Patient Education: Gait Training, Transfer Techniques, Correct Positioning, Disease Process, Safety Issues Teaching Recipient: Patient Teaching Methods: Discussion Response to Teaching: Verbalize Understanding Time/GCodes Time In: 1300 Time Out: 1355 Total Billed Treatment Time: 55 Total Billed Treatment 1, EX x2 (25m), FA (10m) & GT (20m) Co-treat w/ OT for 30m ([id number]) G Codes Necessary: MARISSA Gaming WIG SALES CONSULTANT Dec 04, 2018 13:56
--- NOTE | 2018-12-04 14:12 | Diagnostic Imaging Report ---
PROCEDURE: CT chest, abdomen, and pelvis with contrast. TECHNIQUE: Multiple contiguous axial images were obtained through the chest, abdomen, and pelvis after the administration of intravenous contrast. INDICATION: Pneumonia, asthma, and upper abdominal pain. COMPARISON: Correlation is made with a recent CT chest from 11/24/2018. CT CHEST: FINDINGS: A large-bore chest tube on the left has been removed. Small bilateral effusions are noted, slightly greater on the right compared to the left. Parenchymal consolidation with air bronchograms in the left lower lobe has improved somewhat since prior. There is some subsegmental atelectasis in bilateral upper lobes and lingula. Previously noted pneumothoraces have resolved. There is no pneumomediastinum present. Subcutaneous gas has resolved. No definite axillary, hilar, or mediastinal lymphadenopathy is seen. IMPRESSION: 1. Resolution of bilateral pneumothoraces and pneumomediastinum as well as subcutaneous emphysema since CT from 11/24/2018. 2. Bilateral effusions, similar on the right but slightly increased on the left since prior exam. 3. Left basilar consolidation, improved when compared with prior exam. CT ABDOMEN AND PELVIS: FINDINGS: The intrahepatic bile ducts remain prominent, maybe secondary to post cholecystectomy. No liver mass is seen. The pancreas and spleen are unremarkable. There is a gas and contrast collection near the esophageal hiatus measuring 4.6 x 3.7 cm, image 40. It is uncertain if this communicates with the postoperative stomach. There is some contrast which appears to be just lateral to the greater curvature of the stomach, images 44 through 49, which appears to be extraluminal. This may be extravasated contrast from recent upper GI study. No other areas of extravasation are seen. There are moderate inflammatory changes surrounding the stomach, but no discrete fluid collection is seen. Adrenal glands and kidneys are unremarkable. The small and large bowel loops are unremarkable. There is no free fluid. Bladder is unremarkable. IMPRESSION: 1. Postsurgical changes to the stomach. There is a gas and contrast collection at the hiatus, indeterminate. There is also a small amount of extravasated contrast along the greater curvature of the stomach perhaps from upper GI procedure from one week earlier. Additional Gastrografin fluoroscopic study could be performed for further evaluation. No other significant abnormality is seen. Dictated by: Dictated on workstation # [id number]
[2018-12-04 16:06] VITALS: BP 126/82
[2018-12-04] MEDS ORDERED: SODIUM CHLORIDE IV SCH ×11 (17:00)
[2018-12-04] MEDS ORDERED: [UNRECOGNIZED DRUG - OTHER] IV SCH ×11 (17:00)
[2018-12-04] MEDS ORDERED: SODIUM ACETATE IV SCH ×11 (17:00)
[2018-12-05] MEDS: morphine INJ 4 MG/ML 1 ML (VIAL/SYRINGE) IVP PRN ×3 (01:14→22:53)
[2018-12-05 05:13] VITALS: BP 133/85
[2018-12-05] MEDS: RT-ALBUTEROL/IPRATROPIUM 3 ML (DUONEB) VIAL INH SCH ×4 (07:48→19:55)
[2018-12-05] MEDS: ADVAIR HFA 115/21 MCG INHALER 8 GM IH SCH ×2 (07:49→19:56)
--- NOTE | 2018-12-05 08:27 | PM&R Progress Note ---
Subjective HPI/CC On Admission Date Seen by Provider: Dec 05, 2018 Time Seen by Provider: 08:15 CC: Critical illness myopathy HPI: This is a 58yoWF patient of [facility]gent [facility] Dr [facility] who presented with increased shortness of breath and dysphagia 8 days following robotic assisted repair of recurrent paraesophageal hernia (11/14/18) in [place]. CT scan revealed a left large anterior pneumothorax with bilateral atelectasis and subcutaneous emphysema so chest tube was placed by Dr Milner and she was managed in the ICU aggressively by Dr Rouse s/p bronchoscopy and has sustained significant debility in need of IRF for aggressive therapies in order to ultimately return home. 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 She is currently being treated for MRSA pneumonitis confirmed on bronch cultures and maintained on O2 and Nebs and DVT PPx. Subjective/Events-last exam Sputum culture today to evaluate MRSA and hopefully be able to discontinue isolation. Fentanyl patch is helping and she is not having to use Morphine, or Toradol as much. May need Ritalin to help motivate and resolve apathy. Minimal soft diet tolerated with two bites of apple sauce. Will talk to Dr. Milner about proceeding on with a Dobhoff placement for enteral or a peg tube placement. Blood pressure impoved on Clonidine patch. Not really using IS as recommended. Review of Systems General: Fatigue HEENT: Sore Throat Pulmonary: Dyspnea, Cough Objective Exam Vital Signs Vital Signs Date Time Temp Pulse Resp B/P (MAP) Pulse Ox O2 Delivery O2 Flow Rate FiO2 12/05/18 19:56 95 Nasal Cannula 2.00 12/05/18 16:05 98.2 102 20 127/78 (94) Capillary Refill : General Appearance: No Apparent Distress HEENT: PERRL/EOMI, Normal ENT Inspection, Pharynx Normal, Moist Mucous Membranes Neck: Normal Inspection Respiratory: Decreased Breath Sounds Cardiovascular: Regular Rate, Rhythm Gastrointestinal: Normal Bowel Sounds, No Organomegaly, No Pulsatile Mass, Non Tender, Soft Back: Normal Inspection, No CVA Tenderness, No Vertebral Tenderness Extremity: Normal Inspection Neurologic/Psychiatric: Alert, Oriented x3 Skin: Warm/Dry Lymphatic: No Adenopathy Results/Procedures Lab Patient resulted labs reviewed. Assessment/Plan Assessment and Plan Assess & Plan/Chief Complaint (1) Critical illness myopathy (2) Paraesophageal hiatal hernia s/p repair in [place] after [address] Milner now with present complications (3) Debility (4) Protein-energy malnutrition (5) MRSA pneumonia much improved yesterday, 12/01/18 but now worsened with increased sputum production and chest pain with cough so will check CT scan (6) Elevated blood pressure reading will monitor only (7) Epigastric pain (8) GERD (gastroesophageal reflux disease) (9) Anemia (10) Thrombocytosis (11)Severe dysphagia requiring TPN but no source of inability to eat per Dr Milner and he will initiate calorie count and encouraged her to eat as much as possible but still may need a feeding tube (12) Acute depression with decreased motivation dx with Adjustment D/O with depression due to situation Plan: Supportive care TPN to continue but increase soft diet with calorie count per Dr Milner Ordered labs Complete Vanc yesterday CT chest no empyema Monitor BP and place Clonidine patch Yesterday we increased Fentanyl patch to 25mcg dose and decreased Morphine IV to 2mg IV Q 6hours but increased pain in her back with cough has required increase in Morphine again but appears to be minimizing meds now (1) Critical illness myopathy (2) MRSA pneumonia (3) Paraesophageal hiatal hernia (4) Anemia (5) Thrombocytosis (6) Elevated blood pressure reading (7) Debility (8) GERD (gastroesophageal reflux disease) (9) Epigastric pain (10) Protein-energy malnutrition Clinical Quality Measures DVT/VTE Risk/Contraindication: Risk Factor Score Per Nursin RFS Level Per Nursing on Admit: 2=Moderate BISHOP VAN DO Dec 05, 2018 08:27
[2018-12-05] MEDS: GABAPENTIN 100 MG (NEURONTIN) CAP PO SCH ×3 (08:34→19:24)
[2018-12-05] MEDS: GABAPENTIN 300 MG (NEURONTIN) CAP PO SCH ×3 (08:34→19:24)
[2018-12-05] MEDS: amLODIPine 5 MG (NORVASC) TAB PO SCH (08:34)
[2018-12-05] MEDS: ENOXAPARIN 40 MG/0.4 ML (LOVENOX) SYR SC SCH (08:35)
[2018-12-05] MEDS: SENNA W/DOCUSATE (SENOKOT S) TABLET PO SCH (08:35)
[2018-12-05] MEDS: LACTATED RINGERS 1,000 ML IV SCH (08:40)
[2018-12-05 08:41] VITALS: BP 129/83
--- NOTE | 2018-12-05 09:06 | NUR ---
Dr. Milner called, & stated that he has spoke w Dr. Rouse, & Dr. Rouse is going to do a bronchoscopy w washout tomorrow, [facility].
--- NOTE | 2018-12-05 09:12 | Pulmonary Progress Note ---
Subjective Time Seen by a Provider: 10:28 Subjective/Events-last exam Pt c/o worsening SOB. Sepsis Event Evaluation Height, Weight, BMI Height: 4'11.00" Weight: 109lbs. 8.0oz. 49.214873lv; 24.2 BMI Method:Stated Exam Exam Vital Signs Date Time Temp Pulse Resp B/P (MAP) Pulse Ox O2 Delivery O2 Flow Rate FiO2 12/05/18 08:41 99.4 104 18 129/83 (98) 94 Room Air 12/05/18 07:50 92 Room Air 12/05/18 05:13 98.1 107 18 133/85 (101) 93 Room Air 12/04/18 21:09 92 Room Air 12/04/18 20:45 Room Air 12/04/18 16:45 91 Room Air 12/04/18 16:06 97.5 107 16 126/82 (97) 93 Room Air 12/04/18 09:52 94 Nasal Cannula 2.00 I & O 12/05/18 07:00 Intake Total 3600 ml Balance 3600 ml Height & Weight Height: 4'11.00" Weight: 109lbs. 8.0oz. 49.861782lm; 24.2 BMI Method:Stated General Appearance: No Apparent Distress, Anxious, Chronically ill HEENT: PERRL/EOMI, Normal ENT Inspection, Pharynx Normal, Moist Mucous Membranes Neck: Normal Inspection Respiratory: Decreased Breath Sounds Cardiovascular: Regular Rate, Rhythm Gastrointestinal: non tender, soft Extremity: Normal Inspection Neurologic/Psychiatric: Alert, Oriented x3 Skin: Warm/Dry Lymphatic: No Adenopathy Results Lab Laboratory Tests 12/04/18 09:42 Assessment/Plan Assessment/Plan Iatrogenic left PTX after hiatal hernia surgery s/p Chest tube placement Atelectasis and mucous plugging -Will plan for repeat bronchoscopy tomorrow morning secondary to persistent worsening Atelectasis -Dr. Milner called and asked me to do bronchoscopy -SVNS with easy PAP QID and PRN S/P L sided pneumonia - with MRSA and candidiasis -S/p Vancomycin, and Eraxis -Await Domínguez cultures Atelectasis -S/P bronchoscopy -Easy PAP QID with Duoneb -IS -Increase activity Dysphagia - TPN currently SAM COLLINS DO Dec 05, 2018 09:12
--- NOTE | 2018-12-05 09:14 | NUR ---
TPN: SODIUM ADJUSTED IN TPN, IS NOW EQUIVALENT TO NS.
--- NOTE | 2018-12-05 09:18 | NUR ---
Dr. Rouse in & spoke w pt re: bronch tomorrow
[2018-12-05] MEDS: KETOROLAC 15 MG/ML VIAL IVP PRN ×2 (09:20→18:16)
[2018-12-05] MEDS ORDERED: RT-ALBUTEROL/IPRATROPIUM 3 ML (DUONEB) VIAL INH PRN (09:30)
--- NOTE | 2018-12-05 09:57 | Physical Therapy Daily Note ---
PT Daily Note-Current Subjective Pt laying Supine in bed upon arrival. Pt agrees to PT. Nurse advised pt is no longer NPO today, Broch. completed tomorrow. Pain Numeric Pain Scale: 7 Location: Upper, Dorsal Location Body Site: Back Pain Description: Ache, Tightness Mental Status Patient Orientation: Person, Place, Situation Transfers Therapy Code Descriptions/Definitions Functional [place] Measure: 0=Not Assessed/NA 4=Minimal Assistance 1=Total Assistance 5=Supervision or Setup 2=Maximal Assistance 6=Modified [place] 3=Moderate Assistance 7=Complete [place] Therapy Quality Codes: 6 Independent with activity with or without an assistive device 5 Patient requires set up or clean up by helper. Patient completes activity by themselves 4 Supervision or touching assist (CGA). [place] provide cues , steadying assist 3 The helper provides less than half the effort to complete the activity 2 The helper provides more than half the effort to complete the activity 1 Dependent. The helper does all the effort to complete an activity 7 Patient refused to complete or attempt activity 9 The patient did not perform the activity before the current illness or injury 88 Not attempted due to Medical conditions or safety concerns Scootin Supine to/from Sit: 5 Sit to/from Stand: 5 Sit to Lying (QC): 5 Sit to Stand (QC): 5 Weight Bearing Right Lower Extremity: Right Full Weight Bearing Left Lower Extremity: Left Full Weight Bearing Gait Training Does the Patient Walk?: Yes Distance (FIM): 5=798-82 ft Distance: 125' Walk 10 feet (QC): 5 Walk 50 ft with 2 Turns(QC): 5 Gait Level of Assist: 5 Gait Persons Needed: 1 Gait Assistive Device: FWW Pt starts coughing shortly into ambulation and needs to sit down due to lightheadedness and increased sputum. Wheelchair Training Does the Pt Use a Wheelchair?: No Exercises Supine Ex: Ankle pumps, Quad Set, Glut sets, Straight leg raise, Hip abd/add Supine Reps: 15 Seated Therapy Exercises: Ankle pumps, Long arc quads, Hip flexion, Kicking activity Seated Reps: 15 Treatments Pt completes Supine EX in bed. Pt transfers from bed to use restroom. Pt then ambulates in hallway with rest break after increase in coughing. Pt completes Seated Ex then ambulates back to room. Pt transfers back to bed to rest at end of tx. Pt has all needs met. Assessment Current Status: Fair Progress Pt continues to increase coughing with upright activity. Pt explains importance of sitting up though for lung inflation. Pt still demonstrating lack of motivation. PT Short Term Goals Short Term Goals Time Frame: Dec 07, 2018 Transfers (B,C,W/C) (FIM): 6 Gait (FIM): 2 Gait Distance Comment: 50' Gait Level of Assist: 5 Gait Assistive Device: FWW Wheelchair Distance: See PT goals PT Broadcast Meteorologist Goals Assisted Goals PT Assisted Goals Time Frame: Dec 21, 2018 Transfers (B,C,W/C) (FIM): 6 Sit to Lying (QC): 6 Lying-Sitting on Side/Bed(QC): 6 Sit to Stand (QC): 6 Rollin Roll Left to Right (QC): 6 Chair/Gtk-gm-Clmzt Xfer(QC): 6 Car Transfer (QC): 6 Gait (FIM): 6 Distance: 150' Walk 10 feet (QC): 6 Walk 10ft-Uneven Surface(QC): 6 Walk 50ft with 2 Turns (QC): 6 Walk 150 ft (QC): 6 Gait Level of Assist: 6 Gait Assistive Device: FWW Stairs (FIM): 2 # of Steps: 4 1 Step (curb) (QC): 4 4 Steps (QC): 4 Stairs Level Of Assist: 5 PT Plan Problem List Problem List: Activity Tolerance, Functional Strength, Safety, Gait Treatment/Plan Treatment Plan: Continue Plan of Care Treatment Plan: Bed Mobility, Concurrent Therapy, Education, Functional Activity April, Functional Strength, Group Therapy, Gait, Safety, Therapeutic Exercise, Transfers Treatment Duration: Dec 21, 2018 Frequency: At least 5 of 7 days/Wk (IRF) Estimated Hrs Per Day: 1.5 hours per day Patient and/or Family Agrees t: Yes Safety Risks/Education Patient Education: Gait Training, Transfer Techniques, Correct Positioning, Safety Issues Teaching Recipient: Patient Teaching Methods: Discussion Response to Teaching: Verbalize Understanding Time/GCodes Time In: 900 Time Out: 1000 Total Billed Treatment Time: 60 Total Billed Treatment 1, GT (15m), EX (15m) & FA x2 (30m) G Codes Necessary: MARISSA Gaming PHYSICAL FITNESS TEACHER Dec 05, 2018 09:57
[2018-12-05] MEDS: LACTOBACILLUS ACIDOPHILUS (PROBIOTIC) CAPSULE PO SCH ×3 (11:05→19:25)
--- NOTE | 2018-12-05 11:26 | Occupational Ther Daily Note ---
OT Current Status-Daily Note Subjective Pt in bed, alert, oriented, cooperative & agree for therapy. Pain Location: No Pain Reported Mental Status/Objective Patient Orientation: Person, Place, Time Therapy Code Descriptions/Definitions Functional [place] Measure: 0=Not Assessed/NA 4=Minimal Assistance 1=Total Assistance 5=Supervision or Setup 2=Maximal Assistance 6=Modified [place] 3=Moderate Assistance 7=Complete [place] ADL-Treatment Pt participated in shower activity, grooming, dresssing, toileting, func mobility & strengthening ex to BUE . Pt Independent in supine to sit at EOB & Sit to stand with FWW. Ambulate to toilet . toilet transfers holding grab bar, Toilet hygiene Independently, Pt shower UB, LB with SBA Dry her body with SBA . dress UB & LB with SBA, grooming with Mod.I. Pt SOB, fatigue soon, Endurance fair. No O2 during bath. Needs frequent rest periods between each activity. 30 reps x 1 set x 2 lb both elbow biceps curl ex & forward flexion of both shoulder ex, 30 reps with red theraband in all planes of motion & 25 reps using hand gripper to strengthen hand emergency medical services coordinator to participate in all ADLs & to push up from EOB to stand with FWW. Therapy Code Descriptions/Definitions Functional [place] Measure: 0=Not Assessed/NA 4=Minimal Assistance 1=Total Assistance 5=Supervision or Setup 2=Maximal Assistance 6=Modified [place] 3=Moderate Assistance 7=Complete [place] Therapy Quality Codes: 6 Independent with activity with or without an assistive device 5 Patient requires set up or clean up by helper. Patient completes activity by themselves 4 Supervision or touching assist (CGA). [place] provide cues , steadying assist 3 The helper provides less than half the effort to complete the activity 2 The helper provides more than half the effort to complete the activity 1 Dependent. The helper does all the effort to complete an activity 7 Patient refused to complete or attempt activity 9 The patient did not perform the activity before the current illness or injury 88 Not attempted due to Medical conditions or safety concerns Eating (FIM): 6 Eating (QC): 5 Grooming (FIM): 6 Oral Hygiene (QC): 5 Bathing (FIM): 5 Bathing Location: L Arm, R Arm, L Upper Leg, R Upper Leg, L Lower Leg ( including foot), R Lower Leg (including foot), Chest, Abdomen, Buttocks, Perineal Area Shower/Bathe Self (QC): 5 Upper Body (FIM): 5 Upper Body Dressing (QC): 5 Lower Body Dressing (FIM): 5 Lower Body Dressing (QC): 5 On/Off Footwear (QC): 6 Toileting (FIM): 6 Toileting Hygiene (QC): 5 Transfers (B, C, W/C) (FIM): 6 Toilet/Commode Transfer (FIM): 6 Toilet Transfer (QC): 5 Tub Transfer(FIM): 0 Shower Transfer(FIM): 6 Education OT Patient Education: Correct positioning Teaching Recipient: Patient Teaching Methods: Demonstration Response to Teaching: Verbalize Understanding OT Short Term Goals Short Term Goals Transfers (B,C,W/C) (FIM): 6 1=Demonstrate adherence to instructed precautions during ADL tasks. 2=Patient will verbalize/demonstrate understanding of assistive devices/ modifications for ADL. 3=Patient will improve strength/tolerance for activity to enable patient to perform ADL's. OT Manager Statistical Goals Alf Goals Time Frame: Dec 21, 2018 Eating (FIM): 7 Eating (QC): 7 Groomin Oral Hygiene (QC): 6 Bathing(FIM): 6 Shower/Bathe Self (QC): 6 Upper Body Dressing(FIM): 6 Upper Body Dressing (QC): 6 Lower Body Dressing(FIM): 6 Lower Body Dressing (QC): 6 On/Off Footwear (QC): 6 Toileting(FIM): 6 Toileting Hygiene (QC): 6 Toilet/Commode Transfer(FIM): 6 Toilet/Commode Transfer (QC): 6 Shower Transfer(FIM): 6 Additional Goals: 1-Demonstrate ADL Tasks, 2-Verbalize Understanding, 3- ImproveStrength/April 1=Demonstrate adherence to instructed precautions during ADL tasks. 2=Patient will verbalize/demonstrate understanding of assistive devices/ modifications for ADL. 3=Patient will improve strength/tolerance for activity to enable patient to perform ADL's. OT Education/Plan Problem List/Assessment Assessment: Decreased Activ Tolerance, Decreased Safety Aware, Decreased UE Strength, Impaired Funct Balance, Impaired Self-Care Skills Pt to benefit from skilled OT intervention for ADL training, transfers, strengthening, and safety education to increase level of independence and allow safe discharge home. Discharge Recommendations Plan/Recommendations: Continue POC Therapy D/C Recommendations: Home Independently Patient/Family Goals To return home Independently. Treatment Plan/Plan of Care Treatment,Training & Education: Yes Patient would benefit from OT for education, treatment and training to promote independence in ADL's, mobility, safety and/or upper extremity function for ADL' s. Plan of Care: ADL Retraining, Functional Mobility, Group Exercise/Act as Ind, UE Funct Exercise/Act Treatment Duration: Dec 21, 2018 Frequency: 5 times per week Estimated Hrs Per Day: 1.5 hours per day Agreement: Yes Rehab Potential: Good Time/GCodes Start Time: 10:00 ([id number]= 60 minutes ADL) Stop Time: 12:00 (11:30-12:00 =30 min. ) Total Time Billed (hr/min): 90 Billed Treatment Time 1, ADLs 60 minutes , Ex 30 min. Total 90 minutes. YULY MARTIN OT Dec 05, 2018 11:26
--- NOTE | 2018-12-05 11:31 | Physical Therapy Daily Note ---
PT Daily Note-Current Subjective Pt reports still not feeling well enough to eat, but will think about trying to order something. Agreeable to PT session, does not feel she could tolerate wearing mask for very long in order to participate in group therapy this afternoon. Pain Numeric Pain Scale: 8 Comment: LB, abdomen, across shoulder blades Appearance Pt supine in bed finishing with OT tx, awake and alert, agreeable to PT session Pt requested pain med, if available, during therapy session, nursing notified At end of session, pt supine in bed, call light, phone and bedside table within reach. All needs met Mental Status Patient Orientation: Person, Place, Time, Eyes Open, Situation, Normal For Age Attachments: [place] Transfers Therapy Code Descriptions/Definitions Functional [place] Measure: 0=Not Assessed/NA 4=Minimal Assistance 1=Total Assistance 5=Supervision or Setup 2=Maximal Assistance 6=Modified [place] 3=Moderate Assistance 7=Complete [place] Therapy Quality Codes: 6 Independent with activity with or without an assistive device 5 Patient requires set up or clean up by helper. Patient completes activity by themselves 4 Supervision or touching assist (CGA). [place] provide cues , steadying assist 3 The helper provides less than half the effort to complete the activity 2 The helper provides more than half the effort to complete the activity 1 Dependent. The helper does all the effort to complete an activity 7 Patient refused to complete or attempt activity 9 The patient did not perform the activity before the current illness or injury 88 Not attempted due to Medical conditions or safety concerns Transfers (B, C, W/C) (FIM): 6 Scootin Rollin Supine to/from Sit: 6 Sit to/from Stand: 6 Pt demonstrating all transitions with min effort, safe and proper technique, slow but without assist Weight Bearing Right Lower Extremity: Right Full Weight Bearing Left Lower Extremity: Left Full Weight Bearing Exercises Supine Ex: Bridging, Ankle pumps, Pelvic tilt, Quad Set, Glut sets, Lower trunk rotation, Heel Slides, Knee to chest, Straight leg raise, Hip abd/add Supine Reps: 20 ((+) toe curls, hip IR/ER, ) Seated Therapy Exercises: Sit to stand, Long arc quads, Hip flexion Seated Reps: 20 Treatments bed mobility, transfers and ex's to improve ROM, circulation, mobility, functional activity, activity tolerance and strength Assessment requiring minimal rest breaks during ex's, some increased abdominal pain with ex 's but not as severe as it had been before PT Short Term Goals Short Term Goals Time Frame: Dec 07, 2018 Transfers (B,C,W/C) (FIM): 6 Gait (FIM): 2 Gait Distance Comment: 50' Gait Level of Assist: 5 Gait Assistive Device: FWW Wheelchair Distance: See PT goals PT Halfway Goals Assembler Unit Goals PT Assembler Unit Goals Time Frame: Dec 21, 2018 Transfers (B,C,W/C) (FIM): 6 Sit to Lying (QC): 6 Lying-Sitting on Side/Bed(QC): 6 Sit to Stand (QC): 6 Rollin Roll Left to Right (QC): 6 Chair/Vam-ox-Mifce Xfer(QC): 6 Car Transfer (QC): 6 Gait (FIM): 6 Distance: 150' Walk 10 feet (QC): 6 Walk 10ft-Uneven Surface(QC): 6 Walk 50ft with 2 Turns (QC): 6 Walk 150 ft (QC): 6 Gait Level of Assist: 6 Gait Assistive Device: FWW Stairs (FIM): 2 # of Steps: 4 1 Step (curb) (QC): 4 4 Steps (QC): 4 Stairs Level Of Assist: 5 PT Plan Treatment/Plan Treatment Plan: Continue Plan of Care Treatment Plan: Bed Mobility, Concurrent Therapy, Education, Functional Activity April, Functional Strength, Group Therapy, Gait, Safety, Therapeutic Exercise, Transfers Treatment Duration: Dec 21, 2018 Frequency: At least 5 of 7 days/Wk (IRF) Estimated Hrs Per Day: 1.5 hours per day Patient and/or Family Agrees t: Yes Safety Risks/Education Patient Education: Transfer Techniques, Safety Issues Teaching Recipient: Patient Teaching Methods: Discussion Response to Teaching: Verbalize Understanding Time/GCodes Time In: 1104 Time Out: 1139 Total Billed Treatment Time: 35 Total Billed Treatment 1 visit, EX x 2 units JIM RILEY PTA Dec 05, 2018 11:31
--- NOTE | 2018-12-05 15:22 | Progress Note-Standard ---
Standard Progress Note Progress Notes/Assess & Plan Date Seen by a Provider: Dec 05, 2018 Time Seen by a Provider: 15:21 Progress/Assessment & Plan Oral intake improving.. Left lower lobe atelectasis requires hygiene bronchoscopy. Arranged with Dr. Rouse for tomorrow. Chest wall pain much improved. Possible discharge early part of the week Final Diagnosis left pneumothorax. Atelectasis. Pneumonia CICI SEVILLA MD Dec 05, 2018 15:22
--- NOTE | 2018-12-05 15:36 | NUR ---
Pt states that she would try a Sprite, & some white gravy. Called room service & ordered. Dr. Milner has been in & spoke w pt. re: appetite, bronch tomorrow by Dr. Rouse.
[2018-12-05 16:05] VITALS: BP 127/78
--- NOTE | 2018-12-05 16:57 | NUR ---
[facility] met with patient to review team conference summary. As patient is performing all therapy activities with standby assistance, team has recommended patient status be reevaluated on . The current discharge barrier is continuation of TPN as patient is apprehensive about oral intake. Dr. Woodard has reached out to Dr. Milner in regards to transitioning from TPN to enteral feeds. [facility] has encouraged patient to increase oral intake to expedite discharge plan. [facility] will continue to follow to determine home needs.
[2018-12-05] MEDS: SODIUM ACETATE IV SCH ×11 (17:20)
[2018-12-05] MEDS: SODIUM CHLORIDE IV SCH ×11 (17:20)
[2018-12-05] MEDS: [UNRECOGNIZED DRUG - OTHER] IV SCH ×11 (17:20)
--- NOTE | 2018-12-05 18:36 | NUR ---
Pt eating bowl of country gravy, & has drank a can of Sprite. Eating slowly, taking small sips & bites. Tolerating well, pt states, that, "it tastes good."
[2018-12-06] MEDS: KETOROLAC 15 MG/ML VIAL IVP PRN ×2 (03:29→16:33)
[2018-12-06 05:23] VITALS: BP 162/85
[2018-12-06] MEDS: LACTATED RINGERS 1,000 ML IV SCH (06:14)
[2018-12-06] MEDS: RT-ALBUTEROL/IPRATROPIUM 3 ML (DUONEB) VIAL INH SCH ×4 (07:18→19:00)
[2018-12-06] MEDS: ADVAIR HFA 115/21 MCG INHALER 8 GM IH SCH ×2 (07:18→19:00)
--- NOTE | 2018-12-06 07:59 | PM&R Progress Note ---
Subjective HPI/CC On Admission Date Seen by Provider: Dec 06, 2018 Time Seen by Provider: 08:00 CC: Critical illness myopathy HPI: This is a 58yoWF patient of Urgent Care Dr Grande who presented with increased shortness of breath and dysphagia 8 days following robotic assisted repair of recurrent paraesophageal hernia (11/14/18) in [place]. CT scan revealed a left large anterior pneumothorax with bilateral atelectasis and subcutaneous emphysema so chest tube was placed by Dr Milner and she was managed in the ICU aggressively by Dr Rouse s/p bronchoscopy and has sustained significant debility in need of IRF for aggressive therapies in order to ultimately return home. 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 She is currently being treated for MRSA pneumonitis confirmed on bronch cultures and maintained on O2 and Nebs and DVT PPx. Subjective/Events-last exam Pt going for bronchoscopy today Placed on oxygen of at 2 liters because O2 sat was at 88% last night but nothing acute Ate gravy and a sprite which was very encouraging Decreasing Morphine and Toradol along with maintained on 25mcg of the Fentanyl patch Overall appears to be much improved but a long way to go for recovery Objective Exam Vital Signs Vital Signs Date Time Temp Pulse Resp B/P (MAP) Pulse Ox O2 Delivery O2 Flow Rate FiO2 12/06/18 16:01 97.7 118 16 137/84 (101) 97 Nasal Cannula 1.00 Capillary Refill : General Appearance: No Apparent Distress HEENT: PERRL/EOMI, Normal ENT Inspection, Pharynx Normal, Moist Mucous Membranes Neck: Normal Inspection Respiratory: Decreased Breath Sounds Cardiovascular: Regular Rate, Rhythm Gastrointestinal: Normal Bowel Sounds, No Organomegaly, No Pulsatile Mass, Non Tender, Soft Back: Normal Inspection, No CVA Tenderness, No Vertebral Tenderness Extremity: Normal Inspection Neurologic/Psychiatric: Alert, Oriented x3 Skin: Warm/Dry Lymphatic: No Adenopathy Results/Procedures Lab Patient resulted labs reviewed. Assessment/Plan Assessment and Plan Assess & Plan/Chief Complaint (1) Critical illness myopathy (2) Paraesophageal hiatal hernia s/p repair in [place] after [address] Milner now with present complications (3) Debility (4) Protein-energy malnutrition (5) MRSA pneumonia much improved yesterday, 12/01/18 but now worsened with increased sputum production and chest pain with cough so will check CT scan (6) Elevated blood pressure reading will monitor only (7) Epigastric pain (8) GERD (gastroesophageal reflux disease) (9) Anemia (10) Thrombocytosis (11)Severe dysphagia requiring TPN but no source of inability to eat per Dr Milner and he will initiate calorie count and encouraged her to eat as much as possible but still may need a feeding tube (12) Acute depression with decreased motivation dx with Adjustment D/O with depression due to situation Plan: Supportive care TPN to continue but increase soft diet with calorie count per Dr Milner Ordered labs Completed Vanc yesterday CT chest no empyema Monitor BP and place Clonidine patch Yesterday we increased Fentanyl patch to 25mcg dose and decreased Morphine IV to 2mg IV Q 6hours but increased pain in her back with cough has required increase in Morphine again but appears to be minimizing meds now Bronch today Appears improved overall (1) Critical illness myopathy (2) MRSA pneumonia (3) Paraesophageal hiatal hernia (4) Anemia (5) Thrombocytosis (6) Elevated blood pressure reading (7) Debility (8) GERD (gastroesophageal reflux disease) (9) Epigastric pain (10) Protein-energy malnutrition Clinical Quality Measures DVT/VTE Risk/Contraindication: Risk Factor Score Per Nursin RFS Level Per Nursing on Admit: 2=Moderate BISHOP VAN DO Dec 06, 2018 07:58
[2018-12-06] MEDS ORDERED: fentaNYL INJECTION 100 MCG/2 ML AMP ONE ×2 (08:38)
[2018-12-06] MEDS ORDERED: MIDAZOLAM 2 MG/2 ML (VERSED) VIAL ONE ×4 (08:39→08:40)
[2018-12-06] MEDS ORDERED: NS IV 500 ML 500 ML ONE (08:41)
[2018-12-06] MEDS: GABAPENTIN 300 MG (NEURONTIN) CAP PO SCH ×3 (08:49→21:58)
[2018-12-06] MEDS: GABAPENTIN 100 MG (NEURONTIN) CAP PO SCH ×3 (08:49→21:57)
[2018-12-06] MEDS: ENOXAPARIN 40 MG/0.4 ML (LOVENOX) SYR SC SCH (08:50)
[2018-12-06] MEDS: amLODIPine 5 MG (NORVASC) TAB PO SCH (08:50)
[2018-12-06] MEDS: SENNA W/DOCUSATE (SENOKOT S) TABLET PO SCH (08:50)
--- NOTE | 2018-12-06 08:50 | NUR ---
Pt is down in Endo for Bronch scheduled today w Dr. Rouse.
--- NOTE | 2018-12-06 10:15 | NUR ---
Pt has returned to room per w/c after having bronchoscopy. It was reported by LORETTA Avila who brought pt back, that she did cough up some blood w procedure, & that she may still. Noted pt had scant amt blood below nose. Provided ice chips, & ordered Sprite per pt request.
--- NOTE | 2018-12-06 10:30 | Pulmonary Progress Note ---
Subjective Time Seen by a Provider: 10:29 Subjective/Events-last exam Bronchoscopy today Sepsis Event Evaluation Height, Weight, BMI Height: 4'11.00" Weight: 109lbs. 1.6oz. 49.663506ky; 24.2 BMI Method:Stated Exam Exam Vital Signs Date Time Temp Pulse Resp B/P (MAP) Pulse Ox O2 Delivery O2 Flow Rate FiO2 12/06/18 10:23 92 Nasal Cannula 2.00 12/06/18 09:10 20 12/06/18 08:37 97 Nasal Cannula 2.00 12/06/18 07:18 92 Nasal Cannula 1.50 12/06/18 05:23 98.0 122 20 162/85 (110) 94 Nasal Cannula 2.00 12/05/18 20:55 Room Air 12/05/18 19:56 95 Nasal Cannula 2.00 12/05/18 16:05 98.2 102 20 127/78 (94) 96 Nasal Cannula 2.00 12/05/18 16:02 88 Room Air 12/05/18 16:02 88 Room Air I & O 12/06/18 07:00 Intake Total 1550 ml Balance 1550 ml Height & Weight Height: 4'11.00" Weight: 109lbs. 1.6oz. 49.906696gi; 24.2 BMI Method:Stated General Appearance: No Apparent Distress, Anxious, Chronically ill HEENT: PERRL/EOMI, Normal ENT Inspection, Pharynx Normal, Moist Mucous Membranes Neck: Normal Inspection Respiratory: Decreased Breath Sounds Cardiovascular: Regular Rate, Rhythm Gastrointestinal: non tender, soft Extremity: Normal Inspection Neurologic/Psychiatric: Alert, Oriented x3 Skin: Warm/Dry Lymphatic: No Adenopathy Assessment/Plan Assessment/Plan Atelectasis and mucous plugging -Bronchoscopy for today -SVNS with easy PAP QID and PRN S/P L sided pneumonia - with MRSA and candidiasis -S/p Vancomycin, and Eraxis -Await Domínguez cultures Atelectasis -S/P bronchoscopy -Easy PAP QID with Duoneb -IS -Increase activity Dysphagia - TPN currently Iatrogenic left PTX after hiatal hernia surgery s/p Chest tube placement SAM COLLINS DO Dec 06, 2018 10:30
[2018-12-06] MEDS ORDERED: LIDOCAINE JELLY 2% 6 ML SYRINGE TOP ONE (10:31)
[2018-12-06] MEDS ORDERED: LIDOCAINE PF 2% 5 ML (XYLOCAINE) VIAL INJ ONE (10:31)
[2018-12-06] MEDS ORDERED: LIDOCAINE PF 1% 2 ML VIAL (OR ONLY) IJ ONE (10:31)
--- NOTE | 2018-12-06 10:34 | Pulmonary Procedures ---
Pulmonary Procedures Date of Procedure Date of Service: Dec 06, 2018 Bronch Bronchoscopy with Bilateral bronchial washes Preop DX Mucous plugging, Atelectasis Postop DX:Mucous plugs bilateral. No endobronchial mass. Complications: none After informed consent obtained and formal time out pt was sedated using Fentanyl and Versed. Bronchoscope was advanced through the nare and vocal cords. 1% lidocaine was used to anesthetize vocal cords, epiglottis, vonnie, and left/right main stem bronchus. An anatomical tour was undertaken down to the segmental bronchi bilaterally. No endobronchial lesions noted. Bilateral bronchial washes were obtained and mucous plugs lavaged out. Pt tolerated procedure well. No complications noted. Stat CXR is pending. SAM COLLINS DO Dec 06, 2018 10:34
[2018-12-06] MEDS: morphine INJ 4 MG/ML 1 ML (VIAL/SYRINGE) IVP PRN ×2 (11:47→22:07)
--- NOTE | 2018-12-06 11:48 | Diagnostic Imaging Report ---
INDICATION: Fluoroscopy for bronchoscopy. Fluoroscopy was provided for Dr. Rouse during a bronchoscopy. 6 seconds of fluoroscopy was utilized. IMPRESSION: Fluoroscopy for bronchoscopy. Dictated by: Dictated on workstation # [id number]
--- NOTE | 2018-12-06 11:52 | Diagnostic Imaging Report ---
INDICATION: Status post bronchoscopy. Time of exam 10:50 AM Correlation is made with prior study from 11/29/2018. Left upper extremity PICC line has tip overlying the SVC. No pneumothorax is identified, status post bronchoscopy. Left basilar consolidation persists. Right lung is clear. IMPRESSION: No evidence of pneumothorax. Dictated by: Dictated on workstation # [id number]
--- NOTE | 2018-12-06 12:07 | Physical Therapy Daily Note ---
PT Daily Note-Current Subjective Pt sitting up in recliner upon arrival. Pt agrees to limited PT due to Broch. this morning and very fatigued. Pain Numeric Pain Scale: 6 Location: Upper, Dorsal Location Body Site: Back Pain Description: Ache, Tightness Comment: Pt continues to reports ache in chest & between shoulder blades. Mental Status Patient Orientation: Person, Place Pt very drowsy from this morning's procedure. Transfers Therapy Code Descriptions/Definitions Functional [place] Measure: 0=Not Assessed/NA 4=Minimal Assistance 1=Total Assistance 5=Supervision or Setup 2=Maximal Assistance 6=Modified [place] 3=Moderate Assistance 7=Complete [place] Therapy Quality Codes: 6 Independent with activity with or without an assistive device 5 Patient requires set up or clean up by helper. Patient completes activity by themselves 4 Supervision or touching assist (CGA). [place] provide cues , steadying assist 3 The helper provides less than half the effort to complete the activity 2 The helper provides more than half the effort to complete the activity 1 Dependent. The helper does all the effort to complete an activity 7 Patient refused to complete or attempt activity 9 The patient did not perform the activity before the current illness or injury 88 Not attempted due to Medical conditions or safety concerns Weight Bearing Right Lower Extremity: Right Full Weight Bearing Left Lower Extremity: Left Full Weight Bearing Exercises Supine Ex: Ankle pumps, Quad Set Supine Reps: 15 Seated Therapy Exercises: Long arc quads, Hip flexion, Kicking activity Seated Reps: 15 Treatments RT gives breathing tx at beginning of tx. Pt completes Supine/Seated Ex in recliner. Pt and ENVELOPE ADJUSTER discuss the benefits of continual movement & participating with Therapy. Pt is very tired from procedure so ENVELOPE ADJUSTER gives instruction on proper positioning to improve medical dx. Pt resting at end of tx. Pt has all needs met. Assessment Current Status: Fair Progress Pt demonstrates weakness and quickly fatigues. Pt also self limits. PT Short Term Goals Short Term Goals Time Frame: Dec 07, 2018 Transfers (B,C,W/C) (FIM): 6 Gait (FIM): 2 Gait Distance Comment: 50' Gait Level of Assist: 5 Gait Assistive Device: FWW Wheelchair Distance: See PT goals PT Fci Goals Waxer Operator Goals PT Waxer Operator Goals Time Frame: Dec 21, 2018 Transfers (B,C,W/C) (FIM): 6 Sit to Lying (QC): 6 Lying-Sitting on Side/Bed(QC): 6 Sit to Stand (QC): 6 Rollin Roll Left to Right (QC): 6 Chair/Jhm-sw-Aywzm Xfer(QC): 6 Car Transfer (QC): 6 Gait (FIM): 6 Distance: 150' Walk 10 feet (QC): 6 Walk 10ft-Uneven Surface(QC): 6 Walk 50ft with 2 Turns (QC): 6 Walk 150 ft (QC): 6 Gait Level of Assist: 6 Gait Assistive Device: FWW Stairs (FIM): 2 # of Steps: 4 1 Step (curb) (QC): 4 4 Steps (QC): 4 Stairs Level Of Assist: 5 PT Plan Problem List Problem List: Activity Tolerance, Functional Strength, Safety, Balance, Gait Treatment/Plan Treatment Plan: Continue Plan of Care Treatment Plan: Bed Mobility, Concurrent Therapy, Education, Functional Activity April, Functional Strength, Group Therapy, Gait, Safety, Therapeutic Exercise, Transfers Treatment Duration: Dec 21, 2018 Frequency: At least 5 of 7 days/Wk (IRF) Estimated Hrs Per Day: 1.5 hours per day Patient and/or Family Agrees t: Yes Safety Risks/Education Patient Education: Correct Positioning, Disease Process, Safety Issues Teaching Recipient: Patient Teaching Methods: Discussion Response to Teaching: Verbalize Understanding Time/GCodes Time In: 1000 Time Out: 1035 Total Billed Treatment Time: 35 Total Billed Treatment 1, FA (20m) & EX (15m) G Codes Necessary: MARISSA Gaming PTA Dec 06, 2018 12:07
--- NOTE | 2018-12-06 14:09 | Occupational Ther Daily Note ---
OT Current Status-Daily Note Subjective Pt in recliner, alert, oriented , cooperative & agree to therapy., Pt states that, " I had a procedure done this AM." Pain Numeric Pain Scale: 3 Location: Soft Tissue Location Body Site: Throat Pain Description: Ache Mental Status/Objective Patient Orientation: Person, Place, Time Therapy Code Descriptions/Definitions Functional [place] Measure: 0=Not Assessed/NA 4=Minimal Assistance 1=Total Assistance 5=Supervision or Setup 2=Maximal Assistance 6=Modified [place] 3=Moderate Assistance 7=Complete [place] Attachments: IV, Oxygen, Saline Lock ADL-Treatment Pt participated in wiping face, neck & around neck, UE, LE, Abdomen , face & hairs. Pt comb hairs, Pt func gait to restroom for toilet Therapy Code Descriptions/Definitions Functional [place] Measure: 0=Not Assessed/NA 4=Minimal Assistance 1=Total Assistance 5=Supervision or Setup 2=Maximal Assistance 6=Modified [place] 3=Moderate Assistance 7=Complete [place] Therapy Quality Codes: 6 Independent with activity with or without an assistive device 5 Patient requires set up or clean up by helper. Patient completes activity by themselves 4 Supervision or touching assist (CGA). [place] provide cues , steadying assist 3 The helper provides less than half the effort to complete the activity 2 The helper provides more than half the effort to complete the activity 1 Dependent. The helper does all the effort to complete an activity 7 Patient refused to complete or attempt activity 9 The patient did not perform the activity before the current illness or injury 88 Not attempted due to Medical conditions or safety concerns Eating (FIM): 0 Eating (QC): 0 Grooming (FIM): 5 Oral Hygiene (QC): 5 Bathing (FIM): 4 (sponge bath with Warm Wipes ) Bathing Location: L Arm, R Arm, L Upper Leg, R Upper Leg, Abdomen Shower/Bathe Self (QC): 0 Upper Body (FIM): 4 Upper Body Dressing (QC): 4 Lower Body Dressing (FIM): 3 Lower Body Dressing (QC): 3 On/Off Footwear (QC): 4 Toileting (FIM): 6 Toileting Hygiene (QC): 5 Transfers (B, C, W/C) (FIM): 6 Toilet/Commode Transfer (FIM): 6 Toilet Transfer (QC): 5 Tub Transfer(FIM): 0 Shower Transfer(FIM): 0 Education OT Patient Education: Correct positioning Teaching Recipient: Patient Teaching Methods: Demonstration Response to Teaching: Verbalize Understanding OT Short Term Goals Short Term Goals Transfers (B,C,W/C) (FIM): 6 1=Demonstrate adherence to instructed precautions during ADL tasks. 2=Patient will verbalize/demonstrate understanding of assistive devices/ modifications for ADL. 3=Patient will improve strength/tolerance for activity to enable patient to perform ADL's. OT Product Design Manager Goals Product Design Manager Goals Time Frame: Dec 21, 2018 Eating (FIM): 7 Eating (QC): 7 Groomin Oral Hygiene (QC): 6 Bathing(FIM): 6 Shower/Bathe Self (QC): 6 Upper Body Dressing(FIM): 6 Upper Body Dressing (QC): 6 Lower Body Dressing(FIM): 6 Lower Body Dressing (QC): 6 On/Off Footwear (QC): 6 Toileting(FIM): 6 Toileting Hygiene (QC): 6 Toilet/Commode Transfer(FIM): 6 Toilet/Commode Transfer (QC): 6 Shower Transfer(FIM): 6 Additional Goals: 1-Demonstrate ADL Tasks, 2-Verbalize Understanding, 3- ImproveStrength/April 1=Demonstrate adherence to instructed precautions during ADL tasks. 2=Patient will verbalize/demonstrate understanding of assistive devices/ modifications for ADL. 3=Patient will improve strength/tolerance for activity to enable patient to perform ADL's. OT Education/Plan Problem List/Assessment Assessment: Decreased Activ Tolerance, Decreased Safety Aware, Decreased UE Strength, Impaired Funct Balance, Impaired Self-Care Skills Pt to benefit from skilled OT intervention for ADL training, transfers, strengthening, and safety education to increase level of independence and allow safe discharge home. Discharge Recommendations Plan/Recommendations: Continue POC Therapy D/C Recommendations: Home Independently Equpiment Recommendations-D/C: Extended Bath Bench, Extended Shower Sprayer, [employer] Salesperson Treatment Plan/Plan of Care Treatment,Training & Education: Yes Patient would benefit from OT for education, treatment and training to promote independence in ADL's, mobility, safety and/or upper extremity function for ADL' s. Plan of Care: ADL Retraining, Functional Mobility, Group Exercise/Act as Ind, UE Funct Exercise/Act Treatment Duration: Dec 21, 2018 Frequency: 5 times per week Estimated Hrs Per Day: 1.5 hours per day Agreement: Yes Rehab Potential: Good Patient had Bronchoscopy procedure this AM & thus pt is very weak & c/o mild pain in throat after procedure & not willing to participate fully in therapy session . Notified to the patient care coordinator & charge Nurse. Time/GCodes Start Time: 11:00 (5947-1134= 45 min) Stop Time: 15:15 (4490-2591= 15 min.) Total Time Billed (hr/min): 60 Billed Treatment Time 1, ADL 17, FA14 , Ex 29 min. Total 60 minutes YULY MARTIN OT Dec 06, 2018 14:09
[2018-12-06] MEDS: LACTOBACILLUS ACIDOPHILUS (PROBIOTIC) CAPSULE PO SCH ×2 (14:28→16:18)
[2018-12-06] MEDS: fentaNYL PATCH 25 MCG (DURAGESIC) TOP SCH (14:50)
[2018-12-06] MEDS: FENTANYL PATCH REMOVAL TP SCH (14:50)
--- NOTE | 2018-12-06 15:12 | Physical Therapy Daily Note ---
PT Daily Note-Current Subjective Pt laying Supine in bed upon arrival. Pt agrees to Supine Ex for tx due to fatigue. Pain Numeric Pain Scale: 4 Location: Upper, Dorsal Location Body Site: Back Pain Description: Ache Comment: Pt reports ache in chest and between shoulder blades. Mental Status Patient Orientation: Person, Place Transfers Therapy Code Descriptions/Definitions Functional [place] Measure: 0=Not Assessed/NA 4=Minimal Assistance 1=Total Assistance 5=Supervision or Setup 2=Maximal Assistance 6=Modified [place] 3=Moderate Assistance 7=Complete [place] Therapy Quality Codes: 6 Independent with activity with or without an assistive device 5 Patient requires set up or clean up by helper. Patient completes activity by themselves 4 Supervision or touching assist (CGA). [place] provide cues , steadying assist 3 The helper provides less than half the effort to complete the activity 2 The helper provides more than half the effort to complete the activity 1 Dependent. The helper does all the effort to complete an activity 7 Patient refused to complete or attempt activity 9 The patient did not perform the activity before the current illness or injury 88 Not attempted due to Medical conditions or safety concerns Scootin Supine to/from Sit: 5 Sit to/from Stand: 5 Sit to Lying (QC): 5 Sit to Stand (QC): 5 Weight Bearing Right Lower Extremity: Right Full Weight Bearing Left Lower Extremity: Left Full Weight Bearing Gait Training Does the Patient Walk?: Yes Distance (FIM): 1=up to 49 ft Distance: 30' Walk 10 feet (QC): 5 Gait Level of Assist: 5 Gait Persons Needed: 1 Gait Assistive Device: FWW Exercises Supine Ex: Ankle pumps, Quad Set, Glut sets, Heel Slides, Straight leg raise, Hip abd/add Supine Reps: 20 Treatments Pt transfers from bed to use restroom then returns due to fatigue. Pt completes Supine Ex with rest break as needed. Pt resting at end of tx. Assessment Current Status: Fair Progress Pt fatigues easily. PT Short Term Goals Short Term Goals Time Frame: Dec 07, 2018 Transfers (B,C,W/C) (FIM): 6 Gait (FIM): 2 Gait Distance Comment: 50' Gait Level of Assist: 5 Gait Assistive Device: FWW Wheelchair Distance: See PT goals PT Manager Of Network Goals Custodial Goals PT Custodial Goals Time Frame: Dec 21, 2018 Transfers (B,C,W/C) (FIM): 6 Sit to Lying (QC): 6 Lying-Sitting on Side/Bed(QC): 6 Sit to Stand (QC): 6 Rollin Roll Left to Right (QC): 6 Chair/Gpr-ai-Ynvye Xfer(QC): 6 Car Transfer (QC): 6 Gait (FIM): 6 Distance: 150' Walk 10 feet (QC): 6 Walk 10ft-Uneven Surface(QC): 6 Walk 50ft with 2 Turns (QC): 6 Walk 150 ft (QC): 6 Gait Level of Assist: 6 Gait Assistive Device: FWW Stairs (FIM): 2 # of Steps: 4 1 Step (curb) (QC): 4 4 Steps (QC): 4 Stairs Level Of Assist: 5 PT Plan Problem List Problem List: Activity Tolerance, Functional Strength, Gait Treatment/Plan Treatment Plan: Continue Plan of Care Treatment Plan: Bed Mobility, Concurrent Therapy, Education, Functional Activity April, Functional Strength, Group Therapy, Gait, Safety, Therapeutic Exercise, Transfers Treatment Duration: Dec 21, 2018 Frequency: At least 5 of 7 days/Wk (IRF) Estimated Hrs Per Day: 1.5 hours per day Patient and/or Family Agrees t: Yes Safety Risks/Education Patient Education: Transfer Techniques, Correct Positioning, Safety Issues Teaching Recipient: Patient Teaching Methods: Discussion Response to Teaching: Verbalize Understanding Time/GCodes Time In: 1400 Time Out: 1430 Total Billed Treatment Time: 30 Total Billed Treatment 1, FA (10m) & EX (20m) G Codes Necessary: MARISSA Gaming PTA Dec 06, 2018 15:12
--- NOTE | 2018-12-06 15:36 | Progress Note-Standard ---
Standard Progress Note Progress Notes/Assess & Plan Date Seen by a Provider: Dec 06, 2018 Time Seen by a Provider: 13:45 Progress/Assessment & Plan Oral intake improving.. Left lower lobe atelectasis requires hygiene bronchoscopy. Arranged with Dr. Rouse for tomorrow. Chest wall pain much improved. Possible discharge early part of the week hygiene bronchoscopy this morning. Reports less cough. Still requires oxygen. Oral intake slightly improved. Awaiting sputum culture results before reevaluating MRSA status. Final Diagnosis left pneumothorax. Consolidation. Pneumonia. postoperative dysphagia CICI SEVILLA MD Dec 06, 2018 15:36
[2018-12-06 16:01] VITALS: BP 137/84
[2018-12-06] MEDS: [UNRECOGNIZED DRUG - OTHER] IV SCH ×11 (18:35)
[2018-12-06] MEDS: SODIUM CHLORIDE IV SCH ×11 (18:35)
[2018-12-06] MEDS: SODIUM ACETATE IV SCH ×11 (18:35)
--- NOTE | 2018-12-06 21:58 | NUR ---
PATIENT WITH NO BM 11/29. DENIES SYMPTOMS OF CONSTIPATION. BS HYPOX4. REPORTS FLATUS. PATIENT REFUSES PO MEDS, EVEN WITH OFFER TO CRUSH. ATELECTASIS/PNEUMO EDUCATION WITH CORRECT RETURN DEMO OF I.S. I.S. PERFORMED WITH COUGHING ON INSPIRATION. pATIENT DENIES NEEDS OR C/O AT THIS TIME. EATING ICE CHIPS WITHOUT DIFFICULTY. STATES SHE "FEEL BETTER EVERY DAY' CONT TO MONITOR.
[2018-12-07] MEDS: LACTATED RINGERS 1,000 ML IV SCH ×2 (01:16→22:48)
[2018-12-07] MEDS: KETOROLAC 15 MG/ML VIAL IVP PRN (01:22)
--- NOTE | 2018-12-07 01:24 | NUR ---
PATIENT UP TO BR W/SBA FOR IV CORDS. USES FWW, EVEN, STEADY GAIT. C/O PAIN 10/10 BETWEEN SHOULDER BLADES. REQUEST FOR "PAIN SHOT". TORADOL GIVEN TO PATIENT, PATIENT REQUESTS RN ADMINISTERS IV, "CAN YOU PUSH IT IN FAST SO I CAN FEEL IT?" MED ADMINISTERED SIVP. CONT TO MONITOR.
[2018-12-07] MEDS: LACTOBACILLUS ACIDOPHILUS (PROBIOTIC) CAPSULE PO SCH ×3 (05:56→17:29)
[2018-12-07 06:38] VITALS: BP 133/83
[2018-12-07] MEDS: RT-ALBUTEROL/IPRATROPIUM 3 ML (DUONEB) VIAL INH SCH ×4 (08:27→21:01)
[2018-12-07] MEDS: ADVAIR HFA 115/21 MCG INHALER 8 GM IH SCH ×2 (08:27→21:01)
--- NOTE | 2018-12-07 09:01 | PM&R Progress Note ---
Subjective HPI/CC On Admission Date Seen by Provider: Dec 07, 2018 Time Seen by Provider: 08:45 CC: Critical illness myopathy HPI: This is a 58yoWF patient of Urgent Care Dr Grande who presented with increased shortness of breath and dysphagia 8 days following robotic assisted repair of recurrent paraesophageal hernia (11/14/18) in [place]. CT scan revealed a left large anterior pneumothorax with bilateral atelectasis and subcutaneous emphysema so chest tube was placed by Dr Milner and she was managed in the ICU aggressively by Dr Rouse s/p bronchoscopy and has sustained significant debility in need of IRF for aggressive therapies in order to ultimately return home. 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 She is currently being treated for MRSA pneumonitis confirmed on bronch cultures and maintained on O2 and Nebs and DVT PPx. Subjective/Events-last exam Pt tolerated bronchoscopy yesterday and no nodules were noted Placed on oxygen of at 2 liters most of the time May try to eat gravy and a sprite but she can't possibly maintain herself on the minimal amount she is able to tolerate now and TPN is causing her LFT's to become more elevated and that is a concern Decreasing Morphine and Toradol along with maintained on 25mcg of the Fentanyl patch Overall appears to be much improved but a long way to go for recovery and unsure if she can tolerate being home where she lives with her sister Conferred with Dr Milner and he will talk to her more in-depth Refuses [place] unless it is absolutely necessary but I explained that we are at that point Review of Systems General: Fatigue Gastrointestinal: Abdominal Pain Objective Exam Vital Signs Vital Signs Date Time Temp Pulse Resp B/P (MAP) Pulse Ox O2 Delivery O2 Flow Rate FiO2 12/07/18 09:00 Nasal Cannula 1.00 12/07/18 08:27 92 12/07/18 06:38 97.7 101 16 133/83 (100) Capillary Refill : General Appearance: No Apparent Distress, Chronically ill, Thin HEENT: PERRL/EOMI, Normal ENT Inspection, Pharynx Normal, Moist Mucous Membranes Neck: Normal Inspection Respiratory: Lungs Clear, Normal Breath Sounds Cardiovascular: Regular Rate, Rhythm Gastrointestinal: Normal Bowel Sounds, No Organomegaly, No Pulsatile Mass, Non Tender, Soft Back: Normal Inspection, No CVA Tenderness, No Vertebral Tenderness Extremity: Normal Inspection Neurologic/Psychiatric: Alert, Oriented x3, Depressed Affect Skin: Warm/Dry Lymphatic: No Adenopathy Results/Procedures Lab Patient resulted labs reviewed. Assessment/Plan Assessment and Plan Assess & Plan/Chief Complaint (1) Critical illness myopathy (2) Paraesophageal hiatal hernia s/p repair in [place] after [address] Milner now with present complications (3) Debility (4) Protein-energy malnutrition (5) MRSA pneumonia much improved yesterday, 12/01/18 but now worsened with increased sputum production and chest pain with cough so will checked CT scan (6) Elevated blood pressure reading will monitor only maintained on Clonidine patch because of maintained elevation (7) Epigastric pain (8) GERD (gastroesophageal reflux disease) (9) Anemia (10) Thrombocytosis (11)Severe dysphagia requiring TPN but no source of inability to eat per Dr Milner and he will initiate calorie count and encouraged her to eat as much as possible but still may need a feeding tube (12) Acute depression with decreased motivation dx with Adjustment D/O with depression due to situation Plan: Supportive care TPN to continue but increase soft diet with calorie count per Dr Milner Ordered labs Completed Vanc yesterday CT chest no empyema Monitor BP and place Clonidine patch Yesterday we increased Fentanyl patch to 25mcg dose and decreased Morphine IV to 2mg IV Q 6hours but increased pain in her back with cough has required increase in Morphine again but appears to be minimizing meds now Bronch today Appears improved overall (1) Critical illness myopathy (2) MRSA pneumonia (3) Paraesophageal hiatal hernia (4) Anemia (5) Thrombocytosis (6) Elevated blood pressure reading (7) Debility (8) GERD (gastroesophageal reflux disease) (9) Epigastric pain (10) Protein-energy malnutrition Clinical Quality Measures DVT/VTE Risk/Contraindication: Risk Factor Score Per Nursin RFS Level Per Nursing on Admit: 2=Moderate BISHOP VAN DO Dec 07, 2018 09:01
[2018-12-07] MEDS: GABAPENTIN 300 MG (NEURONTIN) CAP PO SCH ×3 (09:37→20:25)
[2018-12-07] MEDS: amLODIPine 5 MG (NORVASC) TAB PO SCH (09:37)
[2018-12-07] MEDS: GABAPENTIN 100 MG (NEURONTIN) CAP PO SCH ×3 (09:37→20:25)
[2018-12-07] MEDS: SENNA W/DOCUSATE (SENOKOT S) TABLET PO SCH (09:38)
[2018-12-07] MEDS: ENOXAPARIN 40 MG/0.4 ML (LOVENOX) SYR SC SCH (09:38)
[2018-12-07] MEDS: morphine INJ 4 MG/ML 1 ML (VIAL/SYRINGE) IVP PRN ×3 (09:52→20:25)
--- NOTE | 2018-12-07 11:01 | Physical Therapy Daily Note ---
PT Daily Note-Current Subjective Pt. states she hopes to get out of isolation soon but nurse indicates that may not be the case. Pt. stats she is fine to wear a mask and come out of her room but when she starts coughing she has to remove her mask and then the "whole idea is blown" pt. agrees to Rx in room as she has been coughing a lot today Pain Numeric Pain Scale: 2 Location: Medial Location Body Site: Abdomen Pain Description: Ache Mental Status Patient Orientation: Normal For Age Attachments: Oxygen, IV Transfers Therapy Code Descriptions/Definitions Functional [place] Measure: 0=Not Assessed/NA 4=Minimal Assistance 1=Total Assistance 5=Supervision or Setup 2=Maximal Assistance 6=Modified [place] 3=Moderate Assistance 7=Complete [place] Therapy Quality Codes: 6 Independent with activity with or without an assistive device 5 Patient requires set up or clean up by helper. Patient completes activity by themselves 4 Supervision or touching assist (CGA). [place] provide cues , steadying assist 3 The helper provides less than half the effort to complete the activity 2 The helper provides more than half the effort to complete the activity 1 Dependent. The helper does all the effort to complete an activity 7 Patient refused to complete or attempt activity 9 The patient did not perform the activity before the current illness or injury 88 Not attempted due to Medical conditions or safety concerns Transfers (B, C, W/C) (FIM): 6 Scootin Rollin Supine to/from Sit: 6 Sit to/from Stand: 6 Bed to/from Chair: 6 Weight Bearing Right Lower Extremity: Right Full Weight Bearing Left Lower Extremity: Left Full Weight Bearing Gait Training Does the Patient Walk?: Yes Gait (FIM): 5 Distance (FIM): 3=150 ft (x1, 50x1) Gait Level of Assist: 5 Gait Persons Needed: 1 Gait Assistive Device: FWW assist for O2 extended tubing and IV. Pt. was instructed in safety while using extended P2 tubing Exercises Supine Ex: Bridging, Ankle pumps, Quad Set, Rolling, Glut sets, Heel Slides, Short Arc Quads, Scooting, Straight leg raise, Hip abd/add Supine Reps: 15 Seated Therapy Exercises: Ankle pumps, Sit to stand, Long arc quads, Hip flexion, Hip abd/add Seated Reps: 15 Standing: Heel/toe raises, Marching, Mini squats Standing Reps: 15 rest breaks between exercises Assessment Current Status: Good Progress pt. moving well, has some abdominal discomfort but does not limit TRFs in out bed or gait. However pt. is limited to room secondary to isolation as she states she needs to cough and then needs to take mask off and then barrier is broken " so its just easier to stay in the room" PT Short Term Goals Short Term Goals Time Frame: Dec 07, 2018 Transfers (B,C,W/C) (FIM): 6 Gait (FIM): 2 Gait Distance Comment: 50' Gait Level of Assist: 5 Gait Assistive Device: FWW Wheelchair Distance: See PT goals PT Radiation Therapy Technologist Goals Correction Goals PT Correction Goals Time Frame: Dec 21, 2018 Transfers (B,C,W/C) (FIM): 6 Sit to Lying (QC): 6 Lying-Sitting on Side/Bed(QC): 6 Sit to Stand (QC): 6 Rollin Roll Left to Right (QC): 6 Chair/Pto-ws-Ffxmi Xfer(QC): 6 Car Transfer (QC): 6 Gait (FIM): 6 Distance: 150' Walk 10 feet (QC): 6 Walk 10ft-Uneven Surface(QC): 6 Walk 50ft with 2 Turns (QC): 6 Walk 150 ft (QC): 6 Gait Level of Assist: 6 Gait Assistive Device: FWW Stairs (FIM): 2 # of Steps: 4 1 Step (curb) (QC): 4 4 Steps (QC): 4 Stairs Level Of Assist: 5 PT Plan Treatment/Plan Treatment Plan: Continue Plan of Care Treatment Plan: Bed Mobility, Concurrent Therapy, Education, Functional Activity April, Functional Strength, Group Therapy, Gait, Safety, Therapeutic Exercise, Transfers Treatment Duration: Dec 21, 2018 Frequency: At least 5 of 7 days/Wk (IRF) Estimated Hrs Per Day: 1.5 hours per day Patient and/or Family Agrees t: Yes Safety Risks/Education Patient Education: Gait Training, Transfer Techniques, Correct Positioning, Disease Process, Safety Issues (management of extended O2 tubing around room for gait with FWW) Teaching Recipient: Patient Teaching Methods: Demonstration, Discussion Response to Teaching: Verbalize Understanding, Return Demonstration, Reinforcement Needed Time/GCodes Time In: 1000 Time Out: 1100 Total Billed Treatment Time: 60 Total Billed Treatment 1,EX35m,GT10m,FA15m HEATH HERNANDEZ PTA Dec 07, 2018 11:01
--- NOTE | 2018-12-07 12:44 | Progress Note-Standard ---
Standard Progress Note Progress Notes/Assess & Plan Date Seen by a Provider: Dec 07, 2018 Time Seen by a Provider: 10:45 Progress/Assessment & Plan Oral intake improving.. Left lower lobe atelectasis requires hygiene bronchoscopy. Arranged with Dr. Rouse for tomorrow. Chest wall pain much improved. Possible discharge early part of the week hygiene bronchoscopy this morning. Reports less cough. Still requires oxygen. Oral intake slightly improved. Awaiting sputum culture results before reevaluating MRSA status. Patient appears to be more comfortable with less cough. Chest wall pain resolved. Motivated to increase her oral intake. Possible discharge on Monday Final Diagnosis Left pneumothorax, atelectasis. Pneumonia. CICI SEVILLA MD Dec 07, 2018 12:44
--- NOTE | 2018-12-07 12:44 | Pulmonary Progress Note ---
Sepsis Event Evaluation Height, Weight, BMI Height: 4'.00" Weight: 110lbs. 1.6oz. 49.206682jo; 24.2 BMI Method:Stated Exam Exam Vital Signs Date Time Temp Pulse Resp B/P (MAP) Pulse Ox O2 Delivery O2 Flow Rate FiO2 12/07/18 09:00 Nasal Cannula 1.00 12/07/18 08:27 92 Nasal Cannula 1.00 12/07/18 06:38 97.7 101 16 133/83 (100) 100 Room Air 1.00 1.00 12/06/18 21:55 Room Air 12/06/18 16:01 97.7 118 16 137/84 (101) 97 Nasal Cannula 1.00 12/06/18 14:59 94 Nasal Cannula 1.00 I & O 12/07/18 07:00 Intake Total 1020 ml Balance 1020 ml Height & Weight Height: 4'11.00" Weight: 110lbs. 1.6oz. 49.826026uf; 24.2 BMI Method:Stated General Appearance: No Apparent Distress, Chronically ill, Thin HEENT: PERRL/EOMI, Normal ENT Inspection, Pharynx Normal, Moist Mucous Membranes Neck: Normal Inspection Respiratory: Lungs Clear, Normal Breath Sounds Cardiovascular: Regular Rate, Rhythm Gastrointestinal: non tender, soft Extremity: Normal Inspection Neurologic/Psychiatric: Alert, Oriented x3, Depressed Affect Skin: Warm/Dry Lymphatic: No Adenopathy Assessment/Plan Assessment/Plan Atelectasis and mucous plugging s/p bronch -Repeat CXR this AM -SVNS with easy PAP QID and PRN S/P L sided pneumonia - with MRSA and candidiasis -S/p Vancomycin, and Eraxis -Await Domínguez cultures Atelectasis -S/P bronchoscopy -Easy PAP QID with Duoneb -IS -Increase activity Dysphagia - TPN currently Iatrogenic left PTX after hiatal hernia surgery s/p Chest tube placement SAM COLLINS DO Dec 07, 2018 12:44
--- NOTE | 2018-12-07 14:11 | Physical Therapy Daily Note ---
PT Daily Note-Current Subjective Pt reports she feels that she is ready to go home soon. States still having a difficulty time eating though, otherwise feels she is safe enough getting around Pain Numeric Pain Scale: 0-No Pain Appearance Upon arrival, pt supine in bed awake and alert, agreeable to PT session. Pt requesting use of bathroom during session, pt demo supervised bathroom, jack care and activities at sink safely and without LOB At end of treatment, pt supine in bed with HOB elevated, O2/NC, call light, phone and bedside table within reach Mental Status Patient Orientation: Person, Place, Time, Eyes Open, Situation Attachments: Oxygen, IV Transfers Therapy Code Descriptions/Definitions Functional [place] Measure: 0=Not Assessed/NA 4=Minimal Assistance 1=Total Assistance 5=Supervision or Setup 2=Maximal Assistance 6=Modified [place] 3=Moderate Assistance 7=Complete [place] Therapy Quality Codes: 6 Independent with activity with or without an assistive device 5 Patient requires set up or clean up by helper. Patient completes activity by themselves 4 Supervision or touching assist (CGA). [place] provide cues , steadying assist 3 The helper provides less than half the effort to complete the activity 2 The helper provides more than half the effort to complete the activity 1 Dependent. The helper does all the effort to complete an activity 7 Patient refused to complete or attempt activity 9 The patient did not perform the activity before the current illness or injury 88 Not attempted due to Medical conditions or safety concerns Transfers (B, C, W/C) (FIM): 5 Scootin Rollin Supine to/from Sit: 6 Sit to/from Stand: 5 Pt demonstrating correct technique and safe ability to perform transitions throughout tx session, EOB, chair and toilet Weight Bearing Right Lower Extremity: Right Full Weight Bearing Left Lower Extremity: Left Full Weight Bearing Gait Training Does the Patient Walk?: Yes Gait (FIM): 2 Distance (FIM): 9=190-49 ft Distance: 60' Gait Level of Assist: 5 Gait Persons Needed: 1 Gait Assistive Device: None slow steady gait, occasional "furniture surfing", c/o dizziness toward end of gait distance Exercises Supine Ex: Bridging, Ankle pumps, Pelvic tilt, Quad Set, Glut sets, Heel Slides , Knee to chest, Short Arc Quads, Straight leg raise, Hip abd/add Supine Reps: 20 Treatments Gait, transfer, safety, ex to improve functional mobility, strength, ROM, balance, activity tolerance and safety with activities Assessment Began gait training without AD this session PT Short Term Goals Short Term Goals Time Frame: Dec 07, 2018 Transfers (B,C,W/C) (FIM): 6 Gait (FIM): 2 Gait Distance Comment: 50' Gait Level of Assist: 5 Gait Assistive Device: FWW Wheelchair Distance: See PT goals PT Group Home Goals Group Home Goals PT Group Home Goals Time Frame: Dec 21, 2018 Transfers (B,C,W/C) (FIM): 6 Sit to Lying (QC): 6 Lying-Sitting on Side/Bed(QC): 6 Sit to Stand (QC): 6 Rollin Roll Left to Right (QC): 6 Chair/Bti-bo-Zqqdi Xfer(QC): 6 Car Transfer (QC): 6 Gait (FIM): 6 Distance: 150' Walk 10 feet (QC): 6 Walk 10ft-Uneven Surface(QC): 6 Walk 50ft with 2 Turns (QC): 6 Walk 150 ft (QC): 6 Gait Level of Assist: 6 Gait Assistive Device: FWW Stairs (FIM): 2 # of Steps: 4 1 Step (curb) (QC): 4 4 Steps (QC): 4 Stairs Level Of Assist: 5 PT Plan Treatment/Plan Treatment Plan: Continue Plan of Care Treatment Plan: Bed Mobility, Concurrent Therapy, Education, Functional Activity April, Functional Strength, Group Therapy, Gait, Safety, Therapeutic Exercise, Transfers Treatment Duration: Dec 21, 2018 Frequency: At least 5 of 7 days/Wk (IRF) Estimated Hrs Per Day: 1.5 hours per day Patient and/or Family Agrees t: Yes Safety Risks/Education Patient Education: Gait Training, Transfer Techniques, Safety Issues Teaching Recipient: Patient Teaching Methods: Demonstration, Discussion Response to Teaching: Verbalize Understanding, Return Demonstration Time/GCodes Time In: 1320 Time Out: 1350 Total Billed Treatment Time: 30 Total Billed Treatment 1 visit, GT x 1 unit, EX x 1 unit JIM RILEY PTA Dec 07, 2018 14:11
--- NOTE | 2018-12-07 15:41 | Diagnostic Imaging Report ---
INDICATION: Shortness of air. TIME OF EXAM: 3:11 PM COMPARISON: Correlation is made with prior study from one day earlier. FINDINGS: Left upper extremity PICC line has tip overlying the SVC. There are bilateral effusions. There has been some improved aeration to the left base when compared with study yesterday. No new infiltrate is detected. No pneumothorax is identified. IMPRESSION: Improved aeration to the left base when compared with study one day earlier. Dictated by: Dictated on workstation # [id number]
--- NOTE | 2018-12-07 16:17 | NUR ---
MAAME sent updated clinical information to [facility] case advocate, Mercedes Palma. Per review of patient's clinical information it appears the patient has increased oral intake. Per Dr. Milner, if oral intake continues to increase, patient should be appropriate for discontinuation of TPN and proceed with discharge plan to home.
[2018-12-07] MEDS: SODIUM CHLORIDE IV SCH ×11 (17:29)
[2018-12-07] MEDS: [UNRECOGNIZED DRUG - OTHER] IV SCH ×11 (17:29)
[2018-12-07] MEDS: SODIUM ACETATE IV SCH ×11 (17:29)
[2018-12-07 17:39] VITALS: BP 134/87
[2018-12-08] MEDS: morphine INJ 4 MG/ML 1 ML (VIAL/SYRINGE) IVP PRN ×3 (00:58→21:00)
[2018-12-08 05:47] VITALS: BP 155/88
[2018-12-08] MEDS: LACTOBACILLUS ACIDOPHILUS (PROBIOTIC) CAPSULE PO SCH ×4 (05:56→23:50)
[2018-12-08] MEDS: RT-ALBUTEROL/IPRATROPIUM 3 ML (DUONEB) VIAL INH SCH ×4 (07:23→19:58)
[2018-12-08] MEDS: ADVAIR HFA 115/21 MCG INHALER 8 GM IH SCH ×2 (07:24→19:58)
[2018-12-08] MEDS: GABAPENTIN 100 MG (NEURONTIN) CAP PO SCH ×3 (08:46→20:38)
[2018-12-08] MEDS: GABAPENTIN 300 MG (NEURONTIN) CAP PO SCH ×3 (08:46→20:38)
[2018-12-08] MEDS: amLODIPine 5 MG (NORVASC) TAB PO SCH (08:46)
[2018-12-08] MEDS: SENNA W/DOCUSATE (SENOKOT S) TABLET PO SCH (08:46)
[2018-12-08] MEDS: ENOXAPARIN 40 MG/0.4 ML (LOVENOX) SYR SC SCH (09:25)
[2018-12-08] MEDS: cloNIDine 0.1 MG PATCH (CATAPRES TTS) TDSY TD SCH (09:26)
--- NOTE | 2018-12-08 10:40 | NUR ---
Dr. Milner here to see patient. Orders to decrease TPN to 30ml/hr and then DC all together this evening at 1700. Change accuchecks to BID. Add Ensure to diet. Patient states that she can only drink clear Ensure. "Nothing milk based."
--- NOTE | 2018-12-08 10:42 | NUR ---
TPN decreased to 30ml/hr and sputum culture sent to lab.
[2018-12-08] MEDS ORDERED: HYDROcodone/APAP 7.5MG-325 MG/15 ML (LORTAB) UDC PO PRN (11:00)
--- NOTE | 2018-12-08 11:00 | Progress Note-Standard ---
Standard Progress Note Progress Notes/Assess & Plan Date Seen by a Provider: Dec 08, 2018 Time Seen by a Provider: 10:59 Progress/Assessment & Plan Oral intake improving.. Left lower lobe atelectasis requires hygiene bronchoscopy. Arranged with Dr. Rouse for tomorrow. Chest wall pain much improved. Possible discharge early part of the week hygiene bronchoscopy this morning. Reports less cough. Still requires oxygen. Oral intake slightly improved. Awaiting sputum culture results before reevaluating MRSA status. Patient appears to be more comfortable with less cough. Chest wall pain resolved. Motivated to increase her oral intake. Possible discharge on Monday minimal chest wall pain. Very poor oral intake but the patient continues to refuse any feeding tubes to promote enteral nutrition. She is optimistic about trying additional liquid protein supplements without pneumothorax and I have encouraged her to do so. TPN will be decreased and stopped this evening. Final Diagnosis left atelectasis, pneumothorax. Dysphagia CICI SEVILLA MD Dec 08, 2018 11:00
--- NOTE | 2018-12-08 11:10 | PM&R Progress Note ---
Subjective HPI/CC On Admission Date Seen by Provider: Dec 08, 2018 Time Seen by Provider: 11:15 CC: Critical illness myopathy HPI: This is a 58yoWF patient of [facility]gent [facility] Dr [facility] who presented with increased shortness of breath and dysphagia 8 days following robotic assisted repair of recurrent paraesophageal hernia (11/14/18) in [place]. CT scan revealed a left large anterior pneumothorax with bilateral atelectasis and subcutaneous emphysema so chest tube was placed by Dr Milner and she was managed in the ICU aggressively by Dr Rouse s/p bronchoscopy and has sustained significant debility in need of IRF for aggressive therapies in order to ultimately return home. 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 She is currently being treated for MRSA pneumonitis confirmed on bronch cultures and maintained on O2 and Nebs and DVT PPx. Subjective/Events-last exam Pt reports cough is improved Placed on oxygen of at 2 liters most of the time still Decreasing Morphine and Toradol along with maintained on 25mcg of the Fentanyl patch and that is working pretty well Overall appears to be much improved but a long way to go for recovery and unsure if she can tolerate being home where she lives with her sister Conferred with Dr Milner and he talked to her more in-depth and will DC TPN and start clear liquid nutrition by mouth and I will add Miralax to the liquid to regain bowel function Refuses [place] unless it is absolutely necessary but I explained that we are at that point and Dr Milner talked to her about that too No growth on the bronch washings yet and sent down another sputum today by Dr Milner Review of Systems General: Fatigue Objective Exam Vital Signs Vital Signs Date Time Temp Pulse Resp B/P (MAP) Pulse Ox O2 Delivery O2 Flow Rate FiO2 12/08/18 09:00 Nasal Cannula 1.00 12/08/18 07:24 95 12/08/18 05:47 97.6 104 16 155/88 (110) Capillary Refill : General Appearance: No Apparent Distress, Chronically ill, Thin HEENT: PERRL/EOMI, Normal ENT Inspection, Pharynx Normal, Moist Mucous Membranes Neck: Normal Inspection Respiratory: Lungs Clear, Normal Breath Sounds, No Accessory Muscle Use, No Respiratory Distress Cardiovascular: Regular Rate, Rhythm Gastrointestinal: Normal Bowel Sounds, No Organomegaly, No Pulsatile Mass, Non Tender, Soft Back: Normal Inspection, No CVA Tenderness, No Vertebral Tenderness Extremity: Normal Inspection Neurologic/Psychiatric: Alert, Oriented x3, Depressed Affect Skin: Warm/Dry Lymphatic: No Adenopathy Results/Procedures Lab Patient resulted labs reviewed. Assessment/Plan Assessment and Plan Assess & Plan/Chief Complaint (1) Critical illness myopathy (2) Paraesophageal hiatal hernia s/p repair in [place] after [address] Milner now with present complications (3) Debility (4) Protein-energy malnutrition (5) MRSA pneumonia much improved yesterday, 12/01/18 but now worsened with increased sputum production and chest pain with cough so will checked CT scan (6) Elevated blood pressure reading will monitor only maintained on Clonidine patch because of maintained elevation (7) Epigastric pain (8) GERD (gastroesophageal reflux disease) (9) Anemia (10) Thrombocytosis (11)Severe dysphagia requiring TPN but no source of inability to eat per Dr Milner and he will initiate calorie count and encouraged her to eat as much as possible but still may need a feeding tube (12) Acute depression with decreased motivation dx with Adjustment D/O with depression due to situation Plan: Supportive care TPN to DC today, 12/08/18 Completed Vanc Monitor BP and place Clonidine patch Increased Fentanyl patch to 25mcg dose and decreasing morphine and toradol nicely Bronch washings pending Appears improved overall Start PO liquid supplement drinks with Miralax (1) Critical illness myopathy (2) MRSA pneumonia (3) Paraesophageal hiatal hernia (4) Anemia (5) Thrombocytosis (6) Elevated blood pressure reading (7) Debility (8) GERD (gastroesophageal reflux disease) (9) Epigastric pain (10) Protein-energy malnutrition Clinical Quality Measures DVT/VTE Risk/Contraindication: Risk Factor Score Per Nursin RFS Level Per Nursing on Admit: 2=Moderate BISHOP VAN DO Dec 08, 2018 11:10
--- NOTE | 2018-12-08 11:41 | Physical Therapy Daily Note ---
PT Daily Note-Current Subjective States that she is doing okay. Transfers Therapy Code Descriptions/Definitions Functional [place] Measure: 0=Not Assessed/NA 4=Minimal Assistance 1=Total Assistance 5=Supervision or Setup 2=Maximal Assistance 6=Modified [place] 3=Moderate Assistance 7=Complete [place] Therapy Quality Codes: 6 Independent with activity with or without an assistive device 5 Patient requires set up or clean up by helper. Patient completes activity by themselves 4 Supervision or touching assist (CGA). [place] provide cues , steadying assist 3 The helper provides less than half the effort to complete the activity 2 The helper provides more than half the effort to complete the activity 1 Dependent. The helper does all the effort to complete an activity 7 Patient refused to complete or attempt activity 9 The patient did not perform the activity before the current illness or injury 88 Not attempted due to Medical conditions or safety concerns Weight Bearing Right Lower Extremity: Right Full Weight Bearing Left Lower Extremity: Left Full Weight Bearing Exercises Supine Ex: LE Protocol Supine Reps: 20 Assessment Current Status: Good Progress Patient requested bed exercises only today. Did well with all activities. Does fatigue quickly. PT Short Term Goals Short Term Goals Time Frame: Dec 07, 2018 Transfers (B,C,W/C) (FIM): 6 Gait (FIM): 2 Gait Distance Comment: 50' Gait Level of Assist: 5 Gait Assistive Device: FWW Wheelchair Distance: See PT goals PT Retirement Goals Retirement Goals PT Retirement Goals Time Frame: Dec 21, 2018 Transfers (B,C,W/C) (FIM): 6 Sit to Lying (QC): 6 Lying-Sitting on Side/Bed(QC): 6 Sit to Stand (QC): 6 Rollin Roll Left to Right (QC): 6 Chair/Gfi-zr-Pgyjq Xfer(QC): 6 Car Transfer (QC): 6 Gait (FIM): 6 Distance: 150' Walk 10 feet (QC): 6 Walk 10ft-Uneven Surface(QC): 6 Walk 50ft with 2 Turns (QC): 6 Walk 150 ft (QC): 6 Gait Level of Assist: 6 Gait Assistive Device: FWW Stairs (FIM): 2 # of Steps: 4 1 Step (curb) (QC): 4 4 Steps (QC): 4 Stairs Level Of Assist: 5 PT Plan Treatment/Plan Treatment Plan: Continue Plan of Care Treatment Plan: Bed Mobility, Concurrent Therapy, Education, Functional Activity April, Functional Strength, Group Therapy, Gait, Safety, Therapeutic Exercise, Transfers Treatment Duration: Dec 21, 2018 Frequency: At least 5 of 7 days/Wk (IRF) Estimated Hrs Per Day: 1.5 hours per day Patient and/or Family Agrees t: Yes Time/GCodes Time In: 1125 Time Out: 1135 Total Billed Treatment Time: 10 Total Billed Treatment 1, EX x 10' NELDA SALAS PT Dec 08, 2018 11:41
--- NOTE | 2018-12-08 11:56 | NUR ---
Dr. Milner spoke with patient about soy based protein powder to add to Gatorade since patient states she can not tolerate milk based products. Patient states that she will talk to daughter about picking some up from [employer].
[2018-12-08] MEDS: POLYETHYLENE GLYCOL 17 GM (MIRALAX) PACK PO PRN (15:30)
[2018-12-08 17:04] VITALS: BP 139/86
--- NOTE | 2018-12-08 17:11 | NUR ---
TPN DC'D per orders.
--- NOTE | 2018-12-08 17:14 | NUR ---
Patient states that she "cannot drink any more of the Ensure Clear". States that it almost made her "throw up". Agrees to order mashed potatoes with gravy and will "try" some meatloaf. Sipping on Sprite off and on. Eating ice chips.
[2018-12-08] MEDS: LACTATED RINGERS 1,000 ML IV SCH (18:27)
[2018-12-08] MEDS: CATHETER FLUSH 10 ML SYR IV PRN (20:56)
[2018-12-09] MEDS: morphine INJ 4 MG/ML 1 ML (VIAL/SYRINGE) IVP PRN (03:23)
[2018-12-09 05:23] VITALS: BP 155/87
[2018-12-09] MEDS: GABAPENTIN 300 MG (NEURONTIN) CAP PO SCH ×3 (08:03→20:30)
[2018-12-09] MEDS: amLODIPine 5 MG (NORVASC) TAB PO SCH (08:03)
[2018-12-09] MEDS: SENNA W/DOCUSATE (SENOKOT S) TABLET PO SCH (08:03)
[2018-12-09] MEDS: GABAPENTIN 100 MG (NEURONTIN) CAP PO SCH ×3 (08:03→20:30)
[2018-12-09 09:30] LABS: BASOPHILS % (AUTO) 1 % (0-10); EOSINOPHILS # (AUTO) 0.5 10^3/uL (0.0-0.3); EOSINOPHILS % (AUTO) 7 % (0-10); HEMATOCRIT 32 % (35-52); HEMOGLOBIN 10.5 G/DL (11.5-16.0); LYMPHOCYTES # (AUTO) 1.2 X 10^3 (1.0-4.0); LYMPHOCYTES % (AUTO) 18 % (12-44); MEAN CORPUSCULAR HEMOGLOBIN 30 PG (25-34); MEAN CORPUSCULAR HGB CONC 33 G/DL (32-36); MEAN CORPUSCULAR VOLUME 90 FL (80-99); MONOCYTES # (AUTO) 0.5 X 10^3 (0.0-1.0); MONOCYTES % (AUTO) 7 % (0-12); NEUTROPHILS # (AUTO) 4.8 X 10^3 (1.8-7.8); NEUTROPHILS % (AUTO) 68 % (42-75); PLATELET COUNT 380 10^3/uL (130-400); RED CELL DISTRIBUTION WIDTH 13.8 % (10.0-14.5); WHITE BLOOD COUNT 7.1 10^3/uL (4.3-11.0)
[2018-12-09 09:49] LABS: ALANINE AMINOTRANSFERASE 270 U/L (0-55); ALBUMIN 2.9 GM/DL (3.2-4.5); ALKALINE PHOSPHATASE 913 U/L (40-136); BILIRUBIN,TOTAL 0.5 MG/DL (0.1-1.0); BUN/CREATININE RATIO 17; CALCIUM 9.3 MG/DL (8.5-10.1); CARBON DIOXIDE 25 MMOL/L (21-32); CHLORIDE 100 MMOL/L (98-107); CREATININE SERUM 0.58 MG/DL (0.60-1.30); GFR ESTIMATED > 60; GLUCOSE 87 MG/DL (70-105); POTASSIUM 4.3 MMOL/L (3.6-5.0); SODIUM 135 MMOL/L (135-145)
[2018-12-09] MEDS: ENOXAPARIN 40 MG/0.4 ML (LOVENOX) SYR SC SCH (10:28)
[2018-12-09] MEDS: RT-ALBUTEROL/IPRATROPIUM 3 ML (DUONEB) VIAL INH SCH ×4 (10:44→20:01)
[2018-12-09] MEDS: ADVAIR HFA 115/21 MCG INHALER 8 GM IH SCH ×2 (10:49→20:02)
--- NOTE | 2018-12-09 11:16 | PM&R Progress Note ---
Subjective HPI/CC On Admission Date Seen by Provider: Dec 09, 2018 Time Seen by Provider: 11:00 CC: Critical illness myopathy HPI: This is a 58yoWF patient of Urgent Care Dr Grande who presented with increased shortness of breath and dysphagia 8 days following robotic assisted repair of recurrent paraesophageal hernia (11/14/18) in [place]. CT scan revealed a left large anterior pneumothorax with bilateral atelectasis and subcutaneous emphysema so chest tube was placed by Dr Milner and she was managed in the ICU aggressively by Dr Rouse s/p bronchoscopy and has sustained significant debility in need of IRF for aggressive therapies in order to ultimately return home. 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 She is currently being treated for MRSA pneumonitis confirmed on bronch cultures and maintained on O2 and Nebs and DVT PPx. Subjective/Events-last exam Pt reports cough is improved Placed on oxygen of at 2 liters most of the time still Decreasing Morphine and Toradol and maintained on Fentanyl patch Bronch washing culture NGTD and final results so will DC isolation Pt still refusing to eat and only has LR at 50cc/hr and TPN was DC'ed yesterday by Dr Milner Elevated LFT's from TPN cholestasis so needed to DC the TPN anyway and will monitor that closely since AP 913 and AST/ALT 237/270 Patient happy about DC isolation Very difficult to manage this patient since she is refusing to eat and there is not a reason she can't eat and cannot be maintained on TPN long-term and especially with the LFT's elevation from the TPN Difficult DC planning Review of Systems General: Fatigue Objective Exam Vital Signs Vital Signs Date Time Temp Pulse Resp B/P (MAP) Pulse Ox O2 Delivery O2 Flow Rate FiO2 12/09/18 10:57 Nasal Cannula 1.00 12/09/18 10:52 93 12/09/18 05:23 97.0 112 20 155/87 (109) Capillary Refill : General Appearance: No Apparent Distress, Chronically ill, Thin HEENT: PERRL/EOMI, Normal ENT Inspection, Pharynx Normal, Moist Mucous Membranes Neck: Normal Inspection Respiratory: Lungs Clear, Normal Breath Sounds, No Accessory Muscle Use, No Respiratory Distress Cardiovascular: Regular Rate, Rhythm Gastrointestinal: Normal Bowel Sounds, No Organomegaly, No Pulsatile Mass, Non Tender, Soft Back: Normal Inspection, No CVA Tenderness, No Vertebral Tenderness Extremity: Normal Inspection Neurologic/Psychiatric: Alert, Oriented x3, Depressed Affect Skin: Warm/Dry Lymphatic: No Adenopathy Results/Procedures Lab Laboratory Tests 12/09/18 09:23 Patient resulted labs reviewed. Assessment/Plan Assessment and Plan Assess & Plan/Chief Complaint (1) Critical illness myopathy (2) Paraesophageal hiatal hernia s/p repair in [place] after [address] Milner now with present complications (3) Debility (4) Protein-energy malnutrition (5) MRSA pneumonia much improved yesterday, 12/01/18 but now worsened with increased sputum production and chest pain with cough so will checked CT scan (6) Elevated blood pressure reading will monitor only maintained on Clonidine patch because of maintained elevation (7) Epigastric pain (8) GERD (gastroesophageal reflux disease) (9) Anemia (10) Thrombocytosis (11)Severe dysphagia requiring TPN but no source of inability to eat per Dr Milner and he will initiate calorie count and encouraged her to eat as much as possible but still may need a feeding tube (12) Acute depression with decreased motivation dx with Adjustment D/O with depression due to situation Plan: Supportive care TPN to DC yesterday, 12/08/18 Completed Vanc and Bronch washings NGTD and no MRSA Monitor BP and place Clonidine patch Increased Fentanyl patch to 25mcg dose and decreasing morphine and Toradol nicely Appears improved overall Started PO liquid supplement drinks with Miralax (1) Critical illness myopathy (2) MRSA pneumonia (3) Paraesophageal hiatal hernia (4) Anemia (5) Thrombocytosis (6) Elevated blood pressure reading (7) Debility (8) GERD (gastroesophageal reflux disease) (9) Epigastric pain (10) Protein-energy malnutrition (11) Cholestasis (12) Elevated liver enzymes Clinical Quality Measures DVT/VTE Risk/Contraindication: Risk Factor Score Per Nursin RFS Level Per Nursing on Admit: 2=Moderate BISHOP VAN DO Dec 09, 2018 11:16
--- NOTE | 2018-12-09 11:30 | NUR ---
Dr. Woodard here and reviewed bronch washing culture. Ok to remove patient from isolation.
[2018-12-09] MEDS: fentaNYL PATCH 25 MCG (DURAGESIC) TOP SCH (12:05)
[2018-12-09] MEDS: FENTANYL PATCH REMOVAL TP SCH (12:05)
[2018-12-09] MEDS: LACTOBACILLUS ACIDOPHILUS (PROBIOTIC) CAPSULE PO SCH ×2 (12:06→16:29)
[2018-12-09] MEDS: HYDROcodone/APAP 7.5MG-325 MG/15 ML (LORTAB) UDC PO PRN ×2 (12:46→21:17)
[2018-12-09] MEDS: LACTATED RINGERS 1,000 ML IV SCH (14:31)
--- NOTE | 2018-12-09 15:48 | NUR ---
PT WAS WALKED FOR 6 MIN WITH STARTING SAT OF 93% WITH SAT DECREASING TO 91% AT 4 MIN THIS WAS THE LOWEST SAT DURING EXERCISE SAT WAS BACK UP TO 93% AT 6 MIN Addendum: 12/09/18 at 1548 by STERLING HUNTLEY RT Amended: Links added.
--- NOTE | 2018-12-09 15:50 | NUR ---
RT S[place], here for home 02 qualification test. States that patient does not qualify for home 02.
[2018-12-09 17:14] VITALS: BP 148/87
--- NOTE | 2018-12-09 19:00 | NUR ---
2 sutures removed from left old chest tube site and steri strip applied. 1 suture remaining and unable to remove X3 RNs. Dr. Milner notified. Will see patient tomorrow and address then.
--- NOTE | 2018-12-09 19:28 | NUR ---
Walked in halls with SBA using a FWW. Tolerated well.
[2018-12-10] MEDS: LACTOBACILLUS ACIDOPHILUS (PROBIOTIC) CAPSULE PO SCH ×3 (02:56→17:01)
[2018-12-10] MEDS: morphine INJ 4 MG/ML 1 ML (VIAL/SYRINGE) IVP PRN ×3 (04:39→18:20)
[2018-12-10 05:05] VITALS: BP 133/88
[2018-12-10] MEDS: RT-ALBUTEROL/IPRATROPIUM 3 ML (DUONEB) VIAL INH SCH ×4 (06:46→20:46)
[2018-12-10] MEDS: ADVAIR HFA 115/21 MCG INHALER 8 GM IH SCH ×2 (06:49→20:46)
[2018-12-10 08:00] VITALS: BP 126/82
--- NOTE | 2018-12-10 08:21 | PM&R Progress Note ---
Subjective HPI/CC On Admission Date Seen by Provider: Dec 10, 2018 Time Seen by Provider: 08:15 CC: Critical illness myopathy HPI: This is a 58yoWF patient of Urgent Care Dr Grande who presented with increased shortness of breath and dysphagia 8 days following robotic assisted repair of recurrent paraesophageal hernia (11/14/18) in [place]. CT scan revealed a left large anterior pneumothorax with bilateral atelectasis and subcutaneous emphysema so chest tube was placed by Dr Milner and she was managed in the ICU aggressively by Dr Rouse s/p bronchoscopy and has sustained significant debility in need of IRF for aggressive therapies in order to ultimately return home. 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 She is currently being treated for MRSA pneumonitis confirmed on bronch cultures and maintained on O2 and Nebs and DVT PPx. Subjective/Events-last exam Pt wants to go home Will heplock IV fluid Was able to drink a little Gatorade and she feels confident that once she gets home she will manage her oral intake because she has had two surgeries like this before Will need a Fentanyl patch and Clonidine patch along with multiple other medications including Lortab Elixir so those were obtained at the pharmacy with prior authorization today Working with therapy Will be ready to go tomorrow with help, likely with home health and close follow up with Dr. Milner Review of Systems General: Fatigue Objective Exam Vital Signs Vital Signs Date Time Temp Pulse Resp B/P (MAP) Pulse Ox O2 Delivery O2 Flow Rate FiO2 12/10/18 17:24 98.6 115 20 125/85 (98) 96 Room Air 12/09/18 21:00 1.00 Capillary Refill : General Appearance: No Apparent Distress, Chronically ill, Thin HEENT: PERRL/EOMI, Normal ENT Inspection, Pharynx Normal, Moist Mucous Membranes Neck: Normal Inspection Respiratory: Lungs Clear, Normal Breath Sounds, No Accessory Muscle Use, No Respiratory Distress Cardiovascular: Regular Rate, Rhythm Gastrointestinal: Normal Bowel Sounds, No Organomegaly, No Pulsatile Mass, Non Tender, Soft Back: Normal Inspection, No CVA Tenderness, No Vertebral Tenderness Extremity: Normal Inspection Neurologic/Psychiatric: Alert, Oriented x3, Depressed Affect Skin: Warm/Dry Lymphatic: No Adenopathy Results/Procedures Lab Patient resulted labs reviewed. Assessment/Plan Assessment and Plan Assess & Plan/Chief Complaint (1) Critical illness myopathy (2) Paraesophageal hiatal hernia s/p repair in [place] after [address] Milner now with present complications (3) Debility (4) Protein-energy malnutrition (5) MRSA pneumonia much improved yesterday, 12/01/18 but now worsened with increased sputum production and chest pain with cough so will checked CT scan (6) Elevated blood pressure reading will monitor only maintained on Clonidine patch because of maintained elevation (7) Epigastric pain (8) GERD (gastroesophageal reflux disease) (9) Anemia (10) Thrombocytosis (11)Severe dysphagia requiring TPN but no source of inability to eat per Dr Milner and he will initiate calorie count and encouraged her to eat as much as possible but still may need a feeding tube (12) Acute depression with decreased motivation dx with Adjustment D/O with depression due to situation Plan: Supportive care TPN to DC 12/08/18 Completed Vanc and Bronch washings NGTD and no MRSA Monitor BP and place Clonidine patch Increased Fentanyl patch to 25mcg dose and decreasing morphine and Toradol nicely Appears improved overall Started PO liquid supplement drinks with Miralax DC home tomorrow (1) Critical illness myopathy (2) MRSA pneumonia (3) Paraesophageal hiatal hernia (4) Anemia (5) Thrombocytosis (6) Elevated blood pressure reading (7) Debility (8) GERD (gastroesophageal reflux disease) (9) Epigastric pain (10) Protein-energy malnutrition (11) Cholestasis (12) Elevated liver enzymes Clinical Quality Measures DVT/VTE Risk/Contraindication: Risk Factor Score Per Nursin RFS Level Per Nursing on Admit: 2=Moderate BISHOP VAN DO Dec 10, 2018 08:21
--- NOTE | 2018-12-10 08:30 | NUR ---
STATES COUGH IS BETTER. CONTINUES TO HAVE POOR PO INTAKE. DENIES NAUSEA. STATES WAS ABLE TO TAKE A FEW BITES OF CUSTARD YESTERDAY AND SOME GATORADE. IV FLUIDS STOPPED AND PLAN FOR DISCHARGE TOMORROW. CONTINUES TO STATE UNABLE TO TAKE PO MEDS. DR. VAN INFORMED OF TACHYCARDIA. PATIENT DENIES ANY SOB SINCE OXYGEN DC'D.
[2018-12-10] MEDS ORDERED: HYDR118S10 PO ×2 (08:47)
[2018-12-10] MEDS ORDERED: POLY17PO31 PO ×2 (08:47)
[2018-12-10] MEDS ORDERED: METO-310 PO ×2 (08:47)
[2018-12-10] MEDS ORDERED: CLON1PAT33 TD ×2 (08:47)
[2018-12-10] MEDS ORDERED: AMLO5TAB9 PO ×2 (08:47)
[2018-12-10] MEDS ORDERED: FENT1PAT8 TOP ×2 (08:47)
[2018-12-10] MEDS: GABAPENTIN 300 MG (NEURONTIN) CAP PO SCH ×3 (09:32→21:31)
[2018-12-10] MEDS: amLODIPine 5 MG (NORVASC) TAB PO SCH (09:32)
[2018-12-10] MEDS: GABAPENTIN 100 MG (NEURONTIN) CAP PO SCH ×3 (09:32→21:31)
[2018-12-10] MEDS: SENNA W/DOCUSATE (SENOKOT S) TABLET PO SCH (09:33)
--- NOTE | 2018-12-10 09:58 | Physical Therapy Daily Note ---
PT Daily Note-Current Subjective Patient in bed pre tx, agrees to PT, no complaints of pain at rest. Appearance Patient in bed post tx with nurse call, phone, tray, all needs met. Mental Status Patient Orientation: Person, Place, Situation Transfers Therapy Code Descriptions/Definitions Functional [place] Measure: 0=Not Assessed/NA 4=Minimal Assistance 1=Total Assistance 5=Supervision or Setup 2=Maximal Assistance 6=Modified [place] 3=Moderate Assistance 7=Complete [place] Therapy Quality Codes: 6 Independent with activity with or without an assistive device 5 Patient requires set up or clean up by helper. Patient completes activity by themselves 4 Supervision or touching assist (CGA). [place] provide cues , steadying assist 3 The helper provides less than half the effort to complete the activity 2 The helper provides more than half the effort to complete the activity 1 Dependent. The helper does all the effort to complete an activity 7 Patient refused to complete or attempt activity 9 The patient did not perform the activity before the current illness or injury 88 Not attempted due to Medical conditions or safety concerns Transfers (B, C, W/C) (FIM): 6 Scootin Rollin Roll Left to Right (QC): 6 Supine to/from Sit: 6 Sit to/from Stand: 6 Sit to Lying (QC): 6 Sit to Stand (QC): 6 Chair/Ylr-xb-Csmix Xfer(QC): 6 Bed to/from Chair: 6 Car Transfer (QC): 6 Patient performed bed mobility with mod I, supine <-> sit with mod I, sit <-> stand with mod I, transfers with mod I, car transfer with mod I. Weight Bearing Right Lower Extremity: Right Full Weight Bearing Left Lower Extremity: Left Full Weight Bearing Gait Training Gait (FIM): 6 Distance: 200', 150' Walk 10 feet (QC): 6 Walk 50 ft with 2 Turns(QC): 6 Walk 150 ft (QC): 6 Walking 10ft/uneven surface-QC: 6 Gait Level of Assist: 6 Gait Assistive Device: FWW Patient can ambulate 200' with a rolling walker with mod I (including 50' with at least 2 turns of 90 degrees and 10' over an uneven surface). Slow but steady ambulation. Wheelchair Training Does the Pt Use a Wheelchair?: No Stair Training Stair Training: Handrails/: 2 handrails Stairs (FIM): 2 #of Steps: 4 1 Step (curb) (QC): 4 4 Steps (QC): 4 Stairs: Pattern: Step to Level of Assist: 5 Patient can go up and down 4 steps using 2 handrails with SBA. She didn't want to try more steps due to fatigue. Exercises Standing: Heel/toe raises, Mini squats Standing Reps: 15 NuStep Minutes: 15 NuStep Workload: 4 Treatments bed mobility and transfers, ambulation, functional strengthening, gait training , stair training Assessment Current Status: Fair Progress improved general mobility but fatigues quickly with activity, needs frequent rest breaks. PT Short Term Goals Short Term Goals Time Frame: Dec 07, 2018 Transfers (B,C,W/C) (FIM): 6 Gait (FIM): 2 Gait Distance Comment: 50' Gait Level of Assist: 5 Gait Assistive Device: FWW Wheelchair Distance: See PT goals PT Group Home Goals Electronics Scale Tester Goals PT Electronics Scale Tester Goals Time Frame: Dec 21, 2018 Transfers (B,C,W/C) (FIM): 6 (met) Sit to Lying (QC): 6 (met) Lying-Sitting on Side/Bed(QC): 6 (mt) Sit to Stand (QC): 6 (met) Rollin (met) Roll Left to Right (QC): 6 (met) Chair/Cwf-qi-Qktnh Xfer(QC): 6 (met) Car Transfer (QC): 6 (met) Gait (FIM): 6 (met) Distance: 150' Walk 10 feet (QC): 6 (met) Walk 10ft-Uneven Surface(QC): 6 (met) Walk 50ft with 2 Turns (QC): 6 (met) Walk 150 ft (QC): 6 (met) Gait Level of Assist: 6 (met) Gait Assistive Device: FWW Stairs (FIM): 2 (met) # of Steps: 4 (met) 1 Step (curb) (QC): 4 (met) 4 Steps (QC): 4 (met) Stairs Level Of Assist: 5 (met) PT Plan Problem List Problem List: Activity Tolerance, Functional Strength, Safety, Balance, Gait, Transfer Treatment/Plan Treatment Plan: Continue Plan of Care Treatment Plan: Bed Mobility, Concurrent Therapy, Education, Functional Activity April, Functional Strength, Group Therapy, Gait, Safety, Therapeutic Exercise, Transfers Treatment Duration: Dec 21, 2018 Frequency: At least 5 of 7 days/Wk (IRF) Estimated Hrs Per Day: 1.5 hours per day Patient and/or Family Agrees t: Yes Safety Risks/Education Patient Education: Gait Training, Transfer Techniques, Steps, Correct Positioning, Safety Issues Teaching Recipient: Patient Teaching Methods: Demonstration, Discussion Response to Teaching: Reinforcement Needed Time/GCodes Time In: 0900 Time Out: 1000 Total Billed Treatment Time: 60 Total Billed Treatment 1 visit GT 20' FA 15' EX 25' AMY BRADSHAW PT Dec 10, 2018 09:58
--- NOTE | 2018-12-10 10:37 | Occupational Ther Daily Note ---
OT Current Status-Daily Note Subjective Pt in bed, alert, cooperative, oriented & agree for therapy.P states that, " I am going home tomorrow." Pain Numeric Pain Scale: 0-No Pain Location: No Pain Reported Mental Status/Objective Patient Orientation: Person, Place, Time Therapy Code Descriptions/Definitions Functional [place] Measure: 0=Not Assessed/NA 4=Minimal Assistance 1=Total Assistance 5=Supervision or Setup 2=Maximal Assistance 6=Modified [place] 3=Moderate Assistance 7=Complete [place] Attachments: IV, Oxygen, Saline Lock ADL-Treatment Pt participated in shower, dressing UB,LB, Socks , grooming, toilet activity, func mobility & strengthening ex to BUE to participate in all self care tasks & to push up from bed to stand. Pt Independent in shower, dressing UB & LB garments, socks, brushing teeth, combing hairs ,toilet activity & walking from shower to bed without walker. Pt fatigue soon . Endurance fair+ , Participated 25 min. on Arm- Bike Restorator with three rest periods as pt fatigue soon .MS in BUE 4+/5 grossly graded. Pt met almost all goals & thus d/c from skilled OT Services to home. Therapy Code Descriptions/Definitions Functional [place] Measure: 0=Not Assessed/NA 4=Minimal Assistance 1=Total Assistance 5=Supervision or Setup 2=Maximal Assistance 6=Modified [place] 3=Moderate Assistance 7=Complete [place] Therapy Quality Codes: 6 Independent with activity with or without an assistive device 5 Patient requires set up or clean up by helper. Patient completes activity by themselves 4 Supervision or touching assist (CGA). [place] provide cues , steadying assist 3 The helper provides less than half the effort to complete the activity 2 The helper provides more than half the effort to complete the activity 1 Dependent. The helper does all the effort to complete an activity 7 Patient refused to complete or attempt activity 9 The patient did not perform the activity before the current illness or injury 88 Not attempted due to Medical conditions or safety concerns Eating (FIM): 7 Eating (QC): 6 Grooming (FIM): 6 Oral Hygiene (QC): 6 Bathing (FIM): 6 Bathing Location: L Arm, R Arm, L Upper Leg, R Upper Leg, L Lower Leg ( including foot), R Lower Leg (including foot), Chest, Abdomen, Buttocks, Perineal Area Shower/Bathe Self (QC): 6 Upper Body (FIM): 6 Upper Body Dressing (QC): 6 Lower Body Dressing (FIM): 6 Lower Body Dressing (QC): 6 On/Off Footwear (QC): 6 Toileting (FIM): 6 Toileting Hygiene (QC): 6 Transfers (B, C, W/C) (FIM): 6 Toilet/Commode Transfer (FIM): 6 Toilet Transfer (QC): 6 Tub Transfer(FIM): 0 Shower Transfer(FIM): 6 Met all goals. Education OT Patient Education: Correct positioning, Safety issues Teaching Recipient: Patient Teaching Methods: Demonstration Response to Teaching: Verbalize Understanding OT Short Term Goals Short Term Goals Transfers (B,C,W/C) (FIM): 6 1=Demonstrate adherence to instructed precautions during ADL tasks. 2=Patient will verbalize/demonstrate understanding of assistive devices/ modifications for ADL. 3=Patient will improve strength/tolerance for activity to enable patient to perform ADL's. OT Longterm Goals Piano Assembler Goals Time Frame: Dec 21, 2018 Eating (FIM): 7 (7) Eating (QC): 6 (6) Groomin (6) Oral Hygiene (QC): 6 Bathing(FIM): 6 (6) Bathing Location: L Arm, R Arm, L Upper Leg, R Upper Leg, L Lower Leg ( including foot), R Lower Leg (including foot), Chest, Abdomen, Buttocks, Perineal Area Shower/Bathe Self (QC): 6 (6) Upper Body Dressing(FIM): 6 (6) Upper Body Dressing (QC): 6 (6) Lower Body Dressing(FIM): 6 (6) Lower Body Dressing (QC): 6 (6) On/Off Footwear (QC): 6 (6) Toileting(FIM): 6 (6) Toileting Hygiene (QC): 6 (6) Transfers (B,C,W/C) (FIM): 6 (6) Toilet/Commode Transfer(FIM): 6 (6) Toilet/Commode Transfer (QC): 6 (6) Tub Transfer(FIM): 0 (0) Shower Transfer(FIM): 6 (6) Additional Goals: 1-Demonstrate ADL Tasks, 2-Verbalize Understanding, 3- ImproveStrength/April 1=Demonstrate adherence to instructed precautions during ADL tasks. 2=Patient will verbalize/demonstrate understanding of assistive devices/ modifications for ADL. 3=Patient will improve strength/tolerance for activity to enable patient to perform ADL's. OT Education/Plan Problem List/Assessment Assessment: No Skilled OT Needs ID'd Pt to benefit from skilled OT intervention for ADL training, transfers, strengthening, and safety education to increase level of independence and allow safe discharge home. Discharge Recommendations Plan/Recommendations: Discharge/Goals Met Therapy D/C Recommendations: Home Independently Equpiment Recommendations-D/C: Bulldozer Engineer Patient/Family Goals To return home Independently . Treatment Plan/Plan of Care Treatment,Training & Education: Yes Patient would benefit from OT for education, treatment and training to promote independence in ADL's, mobility, safety and/or upper extremity function for ADL' s. Plan of Care: ADL Retraining, Functional Mobility, Group Exercise/Act as Ind, UE Funct Exercise/Act Treatment Duration: Dec 21, 2018 Frequency: 5 times per week Estimated Hrs Per Day: 1.5 hours per day Agreement: Yes Rehab Potential: Good Pt met all goals & thus d/c from skilled OT Services. Time/GCodes Start Time: 08:00 (0800--0900 am =60 minutes) Stop Time: 14:00 (1330--1400 pm=30 min) Total Time Billed (hr/min): 90 Billed Treatment Time 1, ADLs 45 min, FA 15 min & Ex 30 min Total 90 minutes. YULY MARTIN OT Dec 10, 2018 10:37
[2018-12-10] MEDS ORDERED: diphenhydrAMINE 25 MG TAB (BENADRYL) PO PRN (11:00)
[2018-12-10] MEDS: ENOXAPARIN 40 MG/0.4 ML (LOVENOX) SYR SC SCH (11:22)
--- NOTE | 2018-12-10 11:30 | NUR ---
AGREEABLE TO TRY MIRALAX TO TRY TO HAVE A BOWEL MOVEMENT, BUT ONLY HAD 2 DRINKS OF IT.
[2018-12-10] MEDS: POLYETHYLENE GLYCOL 17 GM (MIRALAX) PACK PO PRN (11:36)
--- NOTE | 2018-12-10 11:42 | NUR ---
DIRECTOR LOSS PREVENTION met with RN and Dr. Woodard regarding patients progress and potential discharge. Patient has stated to nurse that she would like to discharge today; however, Dr. Woodard would like to postpone discharge until tomorrow following DC of IV fluids today. Patient continues to eat very little orally; however, TPN has been discontinued and patient has refused Dobbhoff or PEG for nutritional support. Patient believes she can manage at home as this is her third surgery. Dr. Woodard completed prescription for home medications, which allowed DIRECTOR LOSS PREVENTION to obtain prior authorization for Fentanyl patch through patients [facility] insurance. Prior auth was obtained and patient can proceed with having medications filled. Patient is agreeable to postponing discharge until tomorrow and does not believe she will require home health services. Please see discharge summary for further information. Addendum: 12/10/18 at 1651 by GITA ESCOBAR SS DIRECTOR LOSS PREVENTION sent front-wheeled walker ordered to [facility] for delivery tomorrow by 930 a.m., as patient would like to discharge by 10 a.m.
--- NOTE | 2018-12-10 12:47 | Progress Note-Standard ---
Standard Progress Note Progress Notes/Assess & Plan Date Seen by a Provider: Dec 10, 2018 Time Seen by a Provider: 12:46 Progress/Assessment & Plan Oral intake improving.. Left lower lobe atelectasis requires hygiene bronchoscopy. Arranged with Dr. Rouse for tomorrow. Chest wall pain much improved. Possible discharge early part of the week hygiene bronchoscopy this morning. Reports less cough. Still requires oxygen. Oral intake slightly improved. Awaiting sputum culture results before reevaluating MRSA status. Patient appears to be more comfortable with less cough. Chest wall pain resolved. Motivated to increase her oral intake. Possible discharge on Monday minimal chest wall pain. Very poor oral intake but the patient continues to refuse any feeding tubes to promote enteral nutrition. She is optimistic about trying additional liquid protein supplements without pneumothorax and I have encouraged her to do so. TPN will be decreased and stopped this evening. cough and chest wall pain much improved. Oral intake slowly improving. Off oxygen. Sutures from the chest tube site removed. Discharge planned for tomorrow Final Diagnosis left pneumothorax with atelectasis. Postoperative dysphagia, improving CICI SEVILLA MD Dec 10, 2018 12:46
--- NOTE | 2018-12-10 13:15 | Pulmonary Progress Note ---
Subjective Time Seen by a Provider: 13:15 Subjective/Events-last exam Pt feels improved. Sepsis Event Evaluation Height, Weight, BMI Height: 4'11.00" Weight: 109lbs. 11.0oz. 49.541331ao; 24.2 BMI Method:Stated Exam Exam Vital Signs Date Time Temp Pulse Resp B/P (MAP) Pulse Ox O2 Delivery O2 Flow Rate FiO2 12/10/18 10:08 96 Room Air 12/10/18 09:00 Room Air 12/10/18 06:48 91 Room Air 12/10/18 05:05 96.8 110 18 133/88 (103) 93 Room Air 12/09/18 21:00 Nasal Cannula 1.00 12/09/18 20:09 Room Air 12/09/18 20:02 94 Room Air 12/09/18 17:14 98.0 108 18 148/87 (107) 96 Room Air 12/09/18 15:44 94 1.00 12/09/18 15:43 94 Nasal Cannula 1.00 I & O 12/10/18 07:00 Intake Total 420 ml Balance 420 ml Height & Weight Height: 4'11.00" Weight: 109lbs. 11.0oz. 49.092353lj; 24.2 BMI Method:Stated General Appearance: No Apparent Distress, Chronically ill, Thin HEENT: PERRL/EOMI, Normal ENT Inspection, Pharynx Normal, Moist Mucous Membranes Neck: Normal Inspection Respiratory: Lungs Clear, Normal Breath Sounds, No Accessory Muscle Use, No Respiratory Distress Cardiovascular: Regular Rate, Rhythm Gastrointestinal: non tender, soft Extremity: Normal Inspection Neurologic/Psychiatric: Alert, Oriented x3, Depressed Affect Skin: Warm/Dry Lymphatic: No Adenopathy Results Lab Laboratory Tests 12/09/18 09:23 Assessment/Plan Assessment/Plan Atelectasis and mucous plugging s/p bronch -Pt appears to be improving -SVNS with easy PAP QID and PRN -CXR and labs reviewed. S/P L sided pneumonia - with MRSA and candidiasis -S/p Vancomycin, and Eraxis -Await Domínguez cultures Atelectasis -S/P bronchoscopy -Easy PAP QID with Duoneb -IS -Increase activity Dysphagia - TPN currently Iatrogenic left PTX after hiatal hernia surgery s/p Chest tube placement SAM COLLINS DO Dec 10, 2018 13:15
--- NOTE | 2018-12-10 14:49 | Physical Therapy Daily Note ---
PT Daily Note-Current Subjective Agreeable to PT. Reports she is going home tomorrow and feels ready. Transfers Therapy Code Descriptions/Definitions Functional [place] Measure: 0=Not Assessed/NA 4=Minimal Assistance 1=Total Assistance 5=Supervision or Setup 2=Maximal Assistance 6=Modified [place] 3=Moderate Assistance 7=Complete [place] Therapy Quality Codes: 6 Independent with activity with or without an assistive device 5 Patient requires set up or clean up by helper. Patient completes activity by themselves 4 Supervision or touching assist (CGA). [place] provide cues , steadying assist 3 The helper provides less than half the effort to complete the activity 2 The helper provides more than half the effort to complete the activity 1 Dependent. The helper does all the effort to complete an activity 7 Patient refused to complete or attempt activity 9 The patient did not perform the activity before the current illness or injury 88 Not attempted due to Medical conditions or safety concerns Transfers (B, C, W/C) (FIM): 6 pt was mod indep with all transfers performed during treatment. Weight Bearing Right Lower Extremity: Right Full Weight Bearing Left Lower Extremity: Left Full Weight Bearing Gait Training Does the Patient Walk?: Yes Gait (FIM): 6 Distance (FIM): 3=150 ft pt walked 3 bouts of greater than 150 ft with FWW mod indep. Exercises Standing: Hip Abduction, Hamstring curls, Heel/toe raises, Marching, Mini squats Standing Reps: 15 (LE strength and to improve functional activity tolerance. ) Assessment Current Status: Good Progress PT Short Term Goals Short Term Goals Time Frame: Dec 07, 2018 Transfers (B,C,W/C) (FIM): 6 Gait (FIM): 2 Gait Distance Comment: 50' Gait Level of Assist: 5 Gait Assistive Device: FWW Wheelchair Distance: See PT goals PT Fci Goals Fci Goals PT Physical Therapist Assistant Goals Time Frame: Dec 21, 2018 Transfers (B,C,W/C) (FIM): 6 (met) Sit to Lying (QC): 6 (met) Lying-Sitting on Side/Bed(QC): 6 (mt) Sit to Stand (QC): 6 (met) Rollin (met) Roll Left to Right (QC): 6 (met) Chair/Leh-hm-Vslws Xfer(QC): 6 (met) Car Transfer (QC): 6 (met) Gait (FIM): 6 (met) Distance: 150' Walk 10 feet (QC): 6 (met) Walk 10ft-Uneven Surface(QC): 6 (met) Walk 50ft with 2 Turns (QC): 6 (met) Walk 150 ft (QC): 6 (met) Gait Level of Assist: 6 (met) Gait Assistive Device: FWW Stairs (FIM): 2 (met) # of Steps: 4 (met) 1 Step (curb) (QC): 4 (met) 4 Steps (QC): 4 (met) Stairs Level Of Assist: 5 (met) PT Plan Problem List Problem List: Activity Tolerance, Functional Strength Treatment/Plan Treatment Plan: Continue Plan of Care (plan dc tomorrow) Treatment Plan: Bed Mobility, Concurrent Therapy, Education, Functional Activity April, Functional Strength, Group Therapy, Gait, Safety, Therapeutic Exercise, Transfers Treatment Duration: Dec 21, 2018 Frequency: At least 5 of 7 days/Wk (IRF) Estimated Hrs Per Day: 1.5 hours per day Patient and/or Family Agrees t: Yes Time/GCodes Time In: 1402 Time Out: 1433 Total Billed Treatment Time: 31 Total Billed Treatment visit EX 16 GT 15 ULICES RIVERA PT Dec 10, 2018 14:49
[2018-12-10 17:24] VITALS: BP 125/85
--- NOTE | 2018-12-10 18:00 | NUR ---
STATES UP TO BATHROOM ON OWN. THIS NURSE HAS NOT BEEN INFORMED OF INDEPENDENT STATUS, SO ASKED PATIENT TO CALL FOR HELP. STATES DID EXPEL A LOT OF FLATUS, BUT NO BM.
[2018-12-10] MEDS: CATHETER FLUSH 10 ML SYR IV PRN (18:20)
--- NOTE | 2018-12-11 01:00 | NUR ---
Received report from LORETTA Orosco. This RN to assume care at this time. Agree with previous pulp mixer.
[2018-12-11] MEDS: LACTOBACILLUS ACIDOPHILUS (PROBIOTIC) CAPSULE PO SCH (06:24)
[2018-12-11 06:37] VITALS: BP 131/80
[2018-12-11] MEDS: ADVAIR HFA 115/21 MCG INHALER 8 GM IH SCH (07:40)
[2018-12-11] MEDS: RT-ALBUTEROL/IPRATROPIUM 3 ML (DUONEB) VIAL INH SCH (07:40)
--- NOTE | 2018-12-11 08:39 | Therapy Team Discharge Summary ---
Therapy Discharge Summary Discharge Recommendations Date of Discharge Therapy D/C Recommendations: Home Independently Physical Therapy Patient came to rehab with pneumonia and pneumothorax. Upon evaluation patient performed bed mobility with SBA, supine <-> sit with SBA, sit <-> stand with SBA , transfers with SBA, car transfer SBA, ambulated 40' with a rolling walker with CGA (including 10' over an uneven surface), and went up and down 1 step using a rolling walker with CGA. Patient has been performing bed mobility and transfer training, balance and endurance training, functional strengthening, stair training, gait training, and education. Patient has made good progress and has met all of her terminal clerk goals except for stairs. Now, patient performs bed mobility with mod I, supine <-> sit with mod I, sit <-> stand with mod I, transfers with mod I, car transfer with mod I, ambulates 200' with a rolling walker with mod I (including 50' with at least 2 turns of 90 degrees and 10' over an uneven surface), and can go up and down 4 steps using 2 handrails with SBA. Patient is discharging from this facility today and will be discharged from PT at this time. Occupational Therapy No Skilled OT Needs ID'd PT [facility] Goals Heel Layer Goals PT Heel Layer Goals Time Frame: Dec 21, 2018 Transfers (B,C,W/C) (FIM): 6 (met) Roll Left to Right (QC): 6 (met) Sit to Lying (QC): 6 (met) Lying-Sitting on Side/Bed(QC): 6 (mt) Sit to Stand (QC): 6 (met) Chair/[id number]-Mfpnt Xfer(QC): 6 (met) Car Transfer (QC): 6 (met) Gait (FIM): 6 (met) Distance: 150' Walk 10 feet (QC): 6 (met) Walk 10ft-Uneven Surface(QC): 6 (met) Walk 50ft with 2 Turns (QC): 6 (met) Walk 150 ft (QC): 6 (met) Gait Level of Assist: 6 (met) Gait Assistive Device: FWW Stairs (FIM): 2 (met) # of Steps: 4 (met) 1 Step (curb) (QC): 4 (met) 4 Steps (QC): 4 (met) Stairs Level Of Assist: 5 (met) OT Heel Layer Goals [facility] Goals Time Frame: Dec 21, 2018 Eating (FIM): 7 (7) Eating (QC): 6 (6) Oral Hygiene (QC): 6 Grooming(FIM): 6 (6) Bathing(FIM): 6 (6) Bathing Location: L Arm, R Arm, L Upper Leg, R Upper Leg, L Lower Leg ( including foot), R Lower Leg (including foot), Chest, Abdomen, Buttocks, Perineal Area Shower/Bathe Self (QC): 6 (6) Upper Body Dressing(FIM): 6 (6) Upper Body Dressing (QC): 6 (6) Lower Body Dressing(FIM): 6 (6) Lower Body Dressing (QC): 6 (6) On/Off Footwear (QC): 6 (6) Toileting(FIM): 6 (6) Toileting Hygiene (QC): 6 (6) Transfers (B,C,W/C) (FIM): 6 (6) Toilet/Commode Transfer(FIM): 6 (6) Toilet/Commode Transfer (QC): 6 (6) Tub Transfer(FIM): 0 (0) Shower Transfer(FIM): 6 (6) Additional Goals: 1-Demonstrate ADL Tasks, 2-Verbalize Understanding, 3- ImproveStrength/April 1=Demonstrate adherence to instructed precautions during ADL tasks. 2=Patient will verbalize/demonstrate understanding of assistive devices/ modifications for ADL. 3=Patient will improve strength/tolerance for activity to enable patient to perform ADL's. AMY BRADSHAW PT Dec 11, 2018 08:39
[2018-12-11] MEDS: SENNA W/DOCUSATE (SENOKOT S) TABLET PO SCH (08:40)
[2018-12-11] MEDS: amLODIPine 5 MG (NORVASC) TAB PO SCH (08:40)
[2018-12-11] MEDS: GABAPENTIN 100 MG (NEURONTIN) CAP PO SCH (08:40)
[2018-12-11] MEDS: GABAPENTIN 300 MG (NEURONTIN) CAP PO SCH (08:40)
[2018-12-11] MEDS: ENOXAPARIN 40 MG/0.4 ML (LOVENOX) SYR SC SCH (08:46)
[2018-12-11] MEDS: morphine INJ 4 MG/ML 1 ML (VIAL/SYRINGE) IVP PRN (08:50)
[2018-12-11] MEDS: CATHETER FLUSH 10 ML SYR IV PRN (08:50)
--- NOTE | 2018-12-11 08:51 | D/C HH Face to Face Order ---
D/C Face to Face Orders Instructions for Patient Via [facility], Patient Instructions/FollowUp: Dr Ley this week Physician to follow Patient: Dr Ley Discharge Diet for Home: Soft Diet Patient Problems: Dysphagia s/p PTX s/p MRSA Pneumonia Patient Data-Allergies,Ht & Wt Patient Allergies: Coded Allergies: codeine (Unverified Adverse Reaction, Unknown, 09/03/18) severe stomach pain Height (Feet): 4 Height (Inches): 11.00 Weight (Pounds): 103 Weight (Ounces): 9.9 Home Health Need/Face to Face Date of Face to Face: Dec 11, 2018 Clinical Findings: Generalized weakness and fatigue, Muscle weakness I have seen Pt [id number]: Yes Discharged To: Home Diagnosis/Conditions: Dysphagia s/p PTX s/p MRSA Pneumonia Patient is Homebound due to: Muscle weakness Homebound Status Due to the above stated illness, injury or surgical procedure (medical condition or diagnosis) and associated clinical findings, the patient is homebound because of his/her inability to leave home except with aid of a supportive device and/or person AND leaving the home requires a considerable and taxing effort or is medically contraindicated. Pt req the following assistanc: Walker Home Health Nursing Orders Home Health Services Order: Nursing Services, Accounting Specialist-Evaluate & Treat, Physical Therapy-Evaluate & Treat PICC line intermediate Health Infusion Therapy Line Type: POWER INJECTABLE Site Location: Arm-Upper Certify Stmt I certify that this patient is under my care and that I, a nurse practitioner or a physician; a accountant assistant working with me, had a face to face encounter that - meets the physician face to face encounter requirements with this patient as dated. BISHOP VAN DO Dec 11, 2018 08:51
--- NOTE | 2018-12-11 08:53 | Discharge Summary ---
Diagnosis/Chief Complaint Date of Admission Nov 30, 2018 at 11:25 Date of Discharge Discharge Date: Dec 11, 2018 Discharge Diagnosis Assess & Plan/Chief Complaint (1) Critical illness myopathy (2) Paraesophageal hiatal hernia s/p repair in [place] after [address] Milner now with present complications (3) Debility (4) Protein-energy malnutrition (5) MRSA pneumonia much improved yesterday, 12/01/18 but now worsened with increased sputum production and chest pain with cough so will checked CT scan (6) Elevated blood pressure reading will monitor only maintained on Clonidine patch because of maintained elevation (7) Epigastric pain (8) GERD (gastroesophageal reflux disease) (9) Anemia (10) Thrombocytosis (11)Severe dysphagia requiring TPN but no source of inability to eat per Dr Milner and he will initiate calorie count and encouraged her to eat as much as possible but still may need a feeding tube (12) Acute depression with decreased motivation dx with Adjustment D/O with depression due to situation Plan: Supportive care TPN to DC 12/08/18 Completed Vanc and Bronch washings NGTD and no MRSA Monitor BP and place Clonidine patch Increased Fentanyl patch to 25mcg dose and decreasing morphine and Toradol nicely Appears improved overall Started PO liquid supplement drinks with Miralax DC today Discharge Summary Discharge Physical Examination Allergies: Coded Allergies: codeine (Unverified Adverse Reaction, Unknown, 09/03/18) severe stomach pain Vitals & I&Os Vital Signs Date Time Temp Pulse Resp B/P (MAP) Pulse Ox O2 Delivery O2 Flow Rate FiO2 12/11/18 11:47 116 20 116/79 94 Room Air 12/11/18 06:37 98.0 12/09/18 21:00 1.00 Hospital Course Was the Problem List Reviewed?: Yes Hospital course: Pt has a lengthy hospital course in inpatient rehab for eleven days. TPN was continued until three days prior to discharge and that was discontinued. IV fluids were continued for hydration and those were discontinued two days prior to discharge. Dr. Milner saw Pt in consultation due to inability to eat, there was no evidence of any modifiable reason that she could not swallow and eat but she had this issue after her two prior john fundoplications in the recent years. She did need a walker and that order was placed. She did participate in all therapies as required. Pt maintained on Fentanyl patch of 25 micrograms along with Lortab elixir, and she was passing gas although no BM since she has not eaten enough to create a bowel movement. She will have close follow-up with Dr. eLy this week and home health orders were initiated. Overall Pt has guarded prognosis considering she was really unable to eat or drink anything adequately to maintain clinical status but insisted on going home and declined a Dobhoff tube for enteral feeding and a peg tube and will maintain the PIC line because I predict her to return in severely dehydrated state but will continue to be supportive for her and she was willing to take a suppository before discharge. Overall prognosis guarded considering her appearance and she is unable to tolerate eating and drinking but hopefully when she gets back home she will be able to return to her regular routine. Labs (last 24 hrs) Laboratory Tests 11/30/18 12:25: Vancomycin Level Trough 17.4 12/01/18 05:28: Glucometer 132H 12/02/18 05:13: White Blood Count 11.4H, Red Blood Count 3.84L, Hemoglobin 11.1L, Hematocrit 34L , Mean Corpuscular Volume 89, Mean Corpuscular Hemoglobin 29, Mean Corpuscular Hemoglobin Concent 32, Red Cell Distribution Width 13.2, Platelet Count 455H, Mean Platelet Volume 8.5, Neutrophils (%) (Auto) 68, Lymphocytes (%) (Auto) 17, Monocytes (%) (Auto) 10, Eosinophils (%) (Auto) 5, Basophils (%) (Auto) 1, Neutrophils # (Auto) 7.8, Lymphocytes # (Auto) 1.9, Monocytes # (Auto) 1.1H, Eosinophils # (Auto) 0.6H, Basophils # (Auto) 0.1, Neutrophils % (Manual) 77, Lymphocytes % (Manual) 10, Monocytes % (Manual) 12, Eosinophils % (Manual) 1, Sodium Level 133L, Potassium Level 4.3, Chloride Level 103, Carbon Dioxide Level 21, Anion Gap 9, Blood Urea Nitrogen 8, Creatinine 0.53L, Estimat Glomerular Filtration Rate > 60, BUN/Creatinine Ratio 15, Glucose Level 127H, Calcium Level 8.8, Corrected Calcium 9.8, Phosphorus Level 4.5, Magnesium Level 1.9, Total Bilirubin 0.3, Aspartate Amino Transf (AST/SGOT) 49H, Alanine Aminotransferase (ALT/SGPT) 66H, Alkaline Phosphatase 217H, Total Protein 6.7, Albumin 2.8L 12/03/18 05:20: Glucometer 112H 12/04/18 05:32: Glucometer 117H 12/04/18 09:42: White Blood Count 10.6, Red Blood Count 3.74L, Hemoglobin 10.9L, Hematocrit 34L , Mean Corpuscular Volume 90, Mean Corpuscular Hemoglobin 29, Mean Corpuscular Hemoglobin Concent 33, Red Cell Distribution Width 13.6, Platelet Count 425H, Mean Platelet Volume 8.2, Neutrophils (%) (Auto) 70, Lymphocytes (%) (Auto) 15, Monocytes (%) (Auto) 9, Eosinophils (%) (Auto) 6, Basophils (%) (Auto) 1, Neutrophils # (Auto) 7.4, Lymphocytes # (Auto) 1.6, Monocytes # (Auto) 0.9, Eosinophils # (Auto) 0.6H, Basophils # (Auto) 0.1, Sodium Level 129L, Potassium Level 4.1, Chloride Level 103, Carbon Dioxide Level 23, Anion Gap 3L, Blood Urea Nitrogen 11, Creatinine 0.59L, Estimat Glomerular Filtration Rate > 60, BUN /Creatinine Ratio 19, Glucose Level 125H, Calcium Level 9.0, Corrected Calcium 10.0, Total Bilirubin 0.3, Aspartate Amino Transf (AST/SGOT) 46H, Alanine Aminotransferase (ALT/SGPT) 70H, Alkaline Phosphatase 230H, Total Protein 6.9, Albumin 2.8L 12/05/18 06:22: Glucometer 127H 12/06/18 06:12: Glucometer 128H 12/07/18 06:36: Glucometer 105 12/08/18 05:42: Glucometer 122H 12/08/18 17:00: Glucometer 108 12/09/18 05:30: Glucometer 96 12/09/18 09:23: White Blood Count 7.1, Red Blood Count 3.55L, Hemoglobin 10.5L, Hematocrit 32L, Mean Corpuscular Volume 90, Mean Corpuscular Hemoglobin 30, Mean Corpuscular Hemoglobin Concent 33, Red Cell Distribution Width 13.8, Platelet Count 380, Mean Platelet Volume 8.0, Neutrophils (%) (Auto) 68, Lymphocytes (%) (Auto) 18, Monocytes (%) (Auto) 7, Eosinophils (%) (Auto) 7, Basophils (%) (Auto) 1, Neutrophils # (Auto) 4.8, Lymphocytes # (Auto) 1.2, Monocytes # (Auto) 0.5, Eosinophils # (Auto) 0.5H, Basophils # (Auto) 0.0, Sodium Level 135, Potassium Level 4.3, Chloride Level 100, Carbon Dioxide Level 25, Anion Gap 10, Blood Urea Nitrogen 10, Creatinine 0.58L, Estimat Glomerular Filtration Rate > 60, BUN /Creatinine Ratio 17, Glucose Level 87, Calcium Level 9.3, Corrected Calcium 10.2H, Total Bilirubin 0.5, Aspartate Amino Transf (AST/SGOT) 237H, Alanine Aminotransferase (ALT/SGPT) 270H, Alkaline Phosphatase 913H, Total Protein 7.0, Albumin 2.9L 12/09/18 16:18: Glucometer 80 12/09/18 20:29: Glucometer 81 12/10/18 05:03: Glucometer 81 12/10/18 17:15: Glucometer 82 12/11/18 06:32: Glucometer 65L 12/11/18 07:56: Glucometer 75 Microbiology 12/08/18 Gram Stain - Final, Complete 12/08/18 Sputum Culture - Final, Complete Usual upper respiratory erin Pending Labs Microbiology Date/Time Source Procedure Growth Status 12/08/18 10:33 Sputum Expectorated Gram Stain - Final Complete 12/08/18 10:33 Sputum Culture - Final Usual upper respiratory erin Complete Laboratory Tests 11/30/18 12:25: Vancomycin Level Trough 17.4 12/01/18 05:28: Glucometer 132 12/02/18 05:13: White Blood Count 11.4, Red Blood Count 3.84, Hemoglobin 11.1, Hematocrit 34, Mean Corpuscular Volume 89, Mean Corpuscular Hemoglobin 29, Mean Corpuscular Hemoglobin Concent 32, Red Cell Distribution Width 13.2, Platelet Count 455, Mean Platelet Volume 8.5, Neutrophils (%) (Auto) 68, Lymphocytes (%) (Auto) 17, Monocytes (%) (Auto) 10, Eosinophils (%) (Auto) 5, Basophils (%) (Auto) 1, Neutrophils # (Auto) 7.8, Lymphocytes # (Auto) 1.9, Monocytes # (Auto) 1.1, Eosinophils # (Auto) 0.6, Basophils # (Auto) 0.1, Neutrophils % (Manual) 77, Lymphocytes % (Manual) 10, Monocytes % (Manual) 12, Eosinophils % (Manual) 1, Sodium Level 133, Potassium Level 4.3, Chloride Level 103, Carbon Dioxide Level 21, Anion Gap 9, Blood Urea Nitrogen 8, Creatinine 0.53, Estimat Glomerular Filtration Rate > 60, BUN/Creatinine Ratio 15, Glucose Level 127, Calcium Level 8.8, Corrected Calcium 9.8, Phosphorus Level 4.5, Magnesium Level 1.9, Total Bilirubin 0.3, Aspartate Amino Transf (AST/SGOT) 49, Alanine Aminotransferase ( ALT/SGPT) 66, Alkaline Phosphatase 217, Total Protein 6.7, Albumin 2.8 12/03/18 05:20: Glucometer 112 12/04/18 05:32: Glucometer 117 12/04/18 09:42: White Blood Count 10.6, Red Blood Count 3.74, Hemoglobin 10.9, Hematocrit 34, Mean Corpuscular Volume 90, Mean Corpuscular Hemoglobin 29, Mean Corpuscular Hemoglobin Concent 33, Red Cell Distribution Width 13.6, Platelet Count 425, Mean Platelet Volume 8.2, Neutrophils (%) (Auto) 70, Lymphocytes (%) (Auto) 15, Monocytes (%) (Auto) 9, Eosinophils (%) (Auto) 6, Basophils (%) (Auto) 1, Neutrophils # (Auto) 7.4, Lymphocytes # (Auto) 1.6, Monocytes # (Auto) 0.9, Eosinophils # (Auto) 0.6, Basophils # (Auto) 0.1, Sodium Level 129, Potassium Level 4.1, Chloride Level 103, Carbon Dioxide Level 23, Anion Gap 3, Blood Urea Nitrogen 11, Creatinine 0.59, Estimat Glomerular Filtration Rate > 60, BUN/ Creatinine Ratio 19, Glucose Level 125, Calcium Level 9.0, Corrected Calcium 10.0, Total Bilirubin 0.3, Aspartate Amino Transf (AST/SGOT) 46, Alanine Aminotransferase (ALT/SGPT) 70, Alkaline Phosphatase 230, Total Protein 6.9, Albumin 2.8 12/05/18 06:22: Glucometer 127 12/06/18 06:12: Glucometer 128 12/07/18 06:36: Glucometer 105 12/08/18 05:42: Glucometer 122 12/08/18 17:00: Glucometer 108 12/09/18 05:30: Glucometer 96 12/09/18 09:23: White Blood Count 7.1, Red Blood Count 3.55, Hemoglobin 10.5, Hematocrit 32, Mean Corpuscular Volume 90, Mean Corpuscular Hemoglobin 30, Mean Corpuscular Hemoglobin Concent 33, Red Cell Distribution Width 13.8, Platelet Count 380, Mean Platelet Volume 8.0, Neutrophils (%) (Auto) 68, Lymphocytes (%) (Auto) 18, Monocytes (%) (Auto) 7, Eosinophils (%) (Auto) 7, Basophils (%) (Auto) 1, Neutrophils # (Auto) 4.8, Lymphocytes # (Auto) 1.2, Monocytes # (Auto) 0.5, Eosinophils # (Auto) 0.5, Basophils # (Auto) 0.0, Sodium Level 135, Potassium Level 4.3, Chloride Level 100, Carbon Dioxide Level 25, Anion Gap 10, Blood Urea Nitrogen 10, Creatinine 0.58, Estimat Glomerular Filtration Rate > 60, BUN/ Creatinine Ratio 17, Glucose Level 87, Calcium Level 9.3, Corrected Calcium 10.2 , Total Bilirubin 0.5, Aspartate Amino Transf (AST/SGOT) 237, Alanine Aminotransferase (ALT/SGPT) 270, Alkaline Phosphatase 913, Total Protein 7.0, Albumin 2.9 12/09/18 16:18: Glucometer 80 12/09/18 20:29: Glucometer 81 12/10/18 05:03: Glucometer 81 12/10/18 17:15: Glucometer 82 12/11/18 06:32: Glucometer 65 12/11/18 07:56: Glucometer 75 Discharge Home Medications: Active Scripts Active Reglan (Metoclopramide HCl) 10 Mg Tablet 10 Mg PO QID Polyethylene Glycol 3350 17 Gm Powd.pack 17 Gm PO DAILY PRN Fentanyl Patch 25 MCG (Fentanyl) 1 Each Patch.td72 25 Mcg TOP Q72H Amlodipine Besylate 5 Mg Tablet 5 Mg PO DAILY Clonidine TTS 1 Patch (Clonidine) 1 Each Patch.tdwk 0.1 Mg TD Q7D@09 Hydrocodon-Acetamin 7.5-325/15 ML (Hydrocodone/Acetaminophen) 118 Ml Solution 20 Ml PO Q6H PRN Reported Vitamin B Complex 1 Each Capsule 1 Cap PO DAILY Gabapentin 300 Mg Capsule 300 Mg PO TID TAKES ALONG WITH 100MG CAPSULE FOR A TOTAL DOSE OF 400MG THREE TIMES DAILY Symbicort 160-4.5 Mcg Inhaler (Budesonide/Formoterol Fumarate) 10.2 Gm Hfa.aer.ad 2 Puff IH BID Celecoxib 100 Mg Capsule 100 Mg PO BID Gabapentin 100 Mg Capsule 100 Mg PO TID TAKES ALONG WITH 300MG CAPSULE FOR A TOTAL DOSE OF 400MG THREE TIMES DAILY Instructions to patient/family Please see electronic discharge instructions given to patient. Diagnosis/Problems Diagnosis/Problems (1) Critical illness myopathy Status: Resolved Resolution Date/Time: 12/11/18 @ 20:44 (2) MRSA pneumonia Status: Resolved Qualifiers: Qualified Codes: J15.212 - Pneumonia due to methicillin resistant Staphylococcus aureus Resolution Date/Time: 12/11/18 @ 20:44 (3) Paraesophageal hiatal hernia Status: Acute (4) Anemia Status: Chronic Qualifiers: Qualified Codes: D64.9 - Anemia, unspecified (5) Thrombocytosis Status: Chronic (6) Elevated blood pressure reading Status: Chronic (7) Debility Status: Chronic (8) GERD (gastroesophageal reflux disease) Status: Chronic Qualifiers: Qualified Codes: K21.9 - Gastro-esophageal reflux disease without esophagitis (9) Epigastric pain Status: Chronic (10) Protein-energy malnutrition Status: Acute Qualifiers: Qualified Codes: E44.0 - Moderate protein-calorie malnutrition (11) Cholestasis Status: Acute (12) Elevated liver enzymes Status: Acute Clinical Quality Measures DVT/VTE Risk/Contraindication: Risk Factor Score Per Nursin RFS Level Per Nursing on Admit: 2=Moderate BISHOP VAN DO Dec 11, 2018 08:53
[2018-12-11] MEDS ORDERED: BISACODYL 10 MG SUPP (DULCOLAX) PR NR (09:00)
--- NOTE | 2018-12-11 10:25 | NUR ---
DISCHARGED HOME ACCOMPANIED BY DAUGHTER AND NURSE. LEFT PICC LINE LEFT IN ORDERED. WILL HAVE HOME HEALTH NURSING/OT/PT. DR. VAN AWARE OF AM BLOOD SUGAR 65. AFTER SIPS OF SPRITE, BLOOD SUGAR CAME UP TO 75. WAS AGREEABLE TO TRYING DUCOLAX SUPPOSITORY SINCE NO BM SINCE 3-14, BUT THEN REFUSED IT SINCE "AFRAID MY BOWELS WILL NEED TO MOVE ON MY WAY HOME". IS EXPELLING FLATUS. VERY POOR ORAL INTAKE. WILL F/U WITH DR. SANCHEZ ON MONDAY.
[2018-12-11 11:47] VITALS: BP 116/79
--- NOTE | 2018-12-11 13:55 | Occupational Ther Daily Note ---
OT Current Status-Daily Note Subjective Delayed Entry for 12/07/2018 : Pt was in bed, alert, oriented , cooperative & agreed for therapy. Pain Numeric Pain Scale: 0-No Pain Location: No Pain Reported Mental Status/Objective Patient Orientation: Person, Place, Time Therapy Code Descriptions/Definitions Functional Perry Measure: 0=Not Assessed/NA 4=Minimal Assistance 1=Total Assistance 5=Supervision or Setup 2=Maximal Assistance 6=Modified [place] 3=Moderate Assistance 7=Complete Perry Attachments: IV, Saline Lock ADL-Treatment LATE ENTRY NOTE FROM 2018 : Pt participated in shower activities, grooming, toileting , & toilet hyegine , func shower transfers, UB & LB Dressing , & func mobility & strengthening ex to BUE.. Pt needs CGA - Mod I in shower activity, & LB dressing garments, Pt Independent in UB dressing, grooming, func transfers & bed mobility, Pt fatigue soon after shower . Completed 15 on arm- bike & func ambulate to & from the Therapy-Gym. Therapy Code Descriptions/Definitions Functional Perry Measure: 0=Not Assessed/NA 4=Minimal Assistance 1=Total Assistance 5=Supervision or Setup 2=Maximal Assistance 6=Modified [place] 3=Moderate Assistance 7=Complete [place] Therapy Quality Codes: 6 Independent with activity with or without an assistive device 5 Patient requires set up or clean up by helper. Patient completes activity by themselves 4 Supervision or touching assist (CGA). [place] provide cues , steadying assist 3 The helper provides less than half the effort to complete the activity 2 The helper provides more than half the effort to complete the activity 1 Dependent. The helper does all the effort to complete an activity 7 Patient refused to complete or attempt activity 9 The patient did not perform the activity before the current illness or injury 88 Not attempted due to Medical conditions or safety concerns Eating (FIM): 6 Eating (QC): 6 Grooming (FIM): 6 Oral Hygiene (QC): 6 Bathing (FIM): 5 Bathing Location: L Arm, R Arm, L Upper Leg, R Upper Leg, L Lower Leg ( including foot), R Lower Leg (including foot), Chest, Abdomen, Buttocks, Perineal Area Shower/Bathe Self (QC): 5 Upper Body (FIM): 7 Upper Body Dressing (QC): 6 Lower Body Dressing (FIM): 5 Lower Body Dressing (QC): 5 On/Off Footwear (QC): 6 Toileting (FIM): 6 Toileting Hygiene (QC): 6 Transfers (B, C, W/C) (FIM): 6 Toilet/Commode Transfer (FIM): 6 Toilet Transfer (QC): 6 Tub Transfer(FIM): 0 Shower Transfer(FIM): 6 Education OT Patient Education: Correct positioning Teaching Recipient: Patient Teaching Methods: Demonstration Response to Teaching: Verbalize Understanding OT Short Term Goals Short Term Goals Transfers (B,C,W/C) (FIM): 6 1=Demonstrate adherence to instructed precautions during ADL tasks. 2=Patient will verbalize/demonstrate understanding of assistive devices/ modifications for ADL. 3=Patient will improve strength/tolerance for activity to enable patient to perform ADL's. OT Special Equipment Technician Goals Skilled Nursing Goals Time Frame: Dec 21, 2018 Eating (FIM): 7 (7) Eating (QC): 6 (6) Groomin (6) Oral Hygiene (QC): 6 Bathing(FIM): 6 (6) Bathing Location: L Arm, R Arm, L Upper Leg, R Upper Leg, L Lower Leg ( including foot), R Lower Leg (including foot), Chest, Abdomen, Buttocks, Perineal Area Shower/Bathe Self (QC): 6 (6) Upper Body Dressing(FIM): 6 (6) Upper Body Dressing (QC): 6 (6) Lower Body Dressing(FIM): 6 (6) Lower Body Dressing (QC): 6 (6) On/Off Footwear (QC): 6 (6) Toileting(FIM): 6 (6) Toileting Hygiene (QC): 6 (6) Transfers (B,C,W/C) (FIM): 6 (6) Toilet/Commode Transfer(FIM): 6 (6) Toilet/Commode Transfer (QC): 6 (6) Tub Transfer(FIM): 0 (0) Shower Transfer(FIM): 6 (6) Additional Goals: 1-Demonstrate ADL Tasks, 2-Verbalize Understanding, 3- ImproveStrength/April 1=Demonstrate adherence to instructed precautions during ADL tasks. 2=Patient will verbalize/demonstrate understanding of assistive devices/ modifications for ADL. 3=Patient will improve strength/tolerance for activity to enable patient to perform ADL's. OT Education/Plan Problem List/Assessment Assessment: Decreased Activ Tolerance, Decreased Safety Aware, Decreased UE Strength, Dependent Transfers, Impaired Funct Balance, Impaired Self-Care Skills Pt to benefit from skilled OT intervention for ADL training, transfers, strengthening, and safety education to increase level of independence and allow safe discharge home. Discharge Recommendations Plan/Recommendations: Continue POC Therapy D/C Recommendations: Home w/ Family Support Equpiment Recommendations-D/C: Extended Bath Bench, Extended Shower Sprayer, College And Career Counselor Patient/Family Goals To return home with daughter Independently. Treatment Plan/Plan of Care Treatment,Training & Education: Yes Patient would benefit from OT for education, treatment and training to promote independence in ADL's, mobility, safety and/or upper extremity function for ADL' s. Plan of Care: ADL Retraining, Functional Mobility, Group Exercise/Act as Ind, UE Funct Exercise/Act Treatment Duration: Dec 21, 2018 Frequency: 5 times per week Estimated Hrs Per Day: 1.5 hours per day Agreement: Yes Rehab Potential: Good Time/GCodes Start Time: 10:30 Stop Time: 12:00 Total Time Billed (hr/min): 90 ( Delayed Billing Entry for date 12/07/2018) Billed Treatment Time 1, ADLs 60 min, FA 15 min., Ex 15 min, Total 90 minutes.( Delayed Billing entry for 12/07/2018.) YULY MARTIN OT Dec 11, 2018 13:55
== END 2018-12-11 10:25 | disposition home health service (06) | DRG 91 ==
PROVIDERS: ADMIT Internal Medicine; ATTEND Internal Medicine
PROC: 0BC38ZZ Extirpation of Matter from Right Main Bronchus, Via Natural or Artificial Opening Endoscopic (ICD-10-PCS; principal; 2018-12-06)
PROC: 0BC78ZZ Extirpation of Matter from Left Main Bronchus, Via Natural or Artificial Opening Endoscopic (ICD-10-PCS; 2018-12-06)
DX: G72.81 Critical illness myopathy (principal); Z48.815 Encounter for surgical aftercare following surgery on the digestive system; J15.212 Pneumonia due to Methicillin resistant Staphylococcus aureus; B37.1 Pulmonary candidiasis; J98.11 Atelectasis; J98.09 Other diseases of bronchus, not elsewhere classified; E46 Unspecified protein-calorie malnutrition; R13.10 Dysphagia, unspecified; D64.9 Anemia, unspecified; D47.3 Essential (hemorrhagic) thrombocythemia; K21.9 Gastro-esophageal reflux disease without esophagitis; F32.9 Major depressive disorder, single episode, unspecified; K76.89 Other specified diseases of liver
CPT/HCPCS: 36415; 71045; 71046; 71260; 74177; 80053; 80202; 82962; 83735; 84100; 85007; 85025; 85027; 87070; 87205; 94640; 94760

== ENCOUNTER → 2018-12-06 | Day surgery (SDC) | payer BC ==
[~2018-12-06] MED LIST changes: +AMLO5TAB9 PO; +CLON1PAT33 TD; +FENT1PAT8 TOP; +METO-310 PO; +MIDAZOLAM 2 MG/2 ML (VERSED) VIAL IVP ONE; +NS IV 500 ML 500 ML IV PRN; +POLY17PO31 PO; +fentaNYL INJECTION 100 MCG/2 ML AMP IVP ONE
--- OUTSIDE RECORDS SUMMARY | 2018-12-06 08:51 | XMS REPORT | Continuity of Care Document ---
Author Author [facility] Organization [facility] Address Unknown Phone Unavailable Allergies Active Description Code Type Severity Reaction Onset Reported/Identified Relationship to Patient Clinical Status Yes seasonal seasonal Unknown N/A 11/28/2014 Yes No Known Drug Allergies [id number] Drug Allergy Unknown N/A 06/13/2016 Yes codeine [id number] Drug Allergy Unknown N/A 09/03/2018 Yes codeine [...] mL 11/1411/14/2018 IV Piggyback 1,000 mg 1,000 xm=681 mL, 400 mL/hr, IV Piggyback, q6hr HYDROmorphone(Dilaudid [...] FOR OTHER PREPROCEDURAL EXAMIN 06/15/2016 MERARY SERRA DESK OFFICER Ot K42.9 UMBILICAL HERNIA WITHOUT OBSTRUCTION OR 06/17/2016 DI RILEY, CICI Bowser Ot K43.9 VENTRAL HERNIA WITHOUT OBSTRUCTION OR GA 06/19/2016 DI RILEY, CICI Bowser Ot K43.9 VENTRAL HERNIA WITHOUT OBSTRUCTION OR GA 06/19/2016 DI RILEY, CICI Bowser Ot Z01.818 ENCOUNTER FOR OTHER PREPROCEDURAL EXAMIN 06/20/2016 DI RILEY, CICI Bowser Ot K43.9 VENTRAL HERNIA WITHOUT OBSTRUCTION OR GA 06/21/2016 MERARY SERRA DESK OFFICER Ot K42.9 UMBILICAL HERNIA WITHOUT OBSTRUCTION OR 06/23/2016 DI RILEY, CICI Bowser Ot K43.9 VENTRAL HERNIA WITHOUT OBSTRUCTION OR GA 08/24/2016 MERARY SERRA DESK OFFICER Ot K42.9 UMBILICAL HERNIA WITHOUT OBSTRUCTION OR 08/26/2016 MERARY SERRA DESK OFFICER Ot K42.9 UMBILICAL HERNIA WITHOUT OBSTRUCTION OR 08/31/2016 NICO PEREZ DESK OFFICER Ot J44.9 CHRONIC OBSTRUCTIVE PULMONARY DISEASE, U 08/31/2016 PEREZ NICO L DESK OFFICER Ot J45.909 UNSPECIFIED ASTHMA, UNCOMPLICATED 08/31/2016 PEREZ NICO L DESK OFFICER Ot Z79.899 OTHER [employer] WORK[employer] (CURRENT) DRUG THERAPY 09/14/2016 PEREZ NICO L DESK OFFICER Ot J44.9 CHRONIC OBSTRUCTIVE PULMONARY DISEASE, U 09/14/2016 PEREZ, NICO L DESK OFFICER Ot J45.909 UNSPECIFIED ASTHMA, UNCOMPLICATED 09/14/2016 PEREZ, NICO L DESK OFFICER Ot Z79.899 OTHER [facility] (CURRENT) DRUG THERAPY 11/14/2016 MERARY SERRA DESK OFFICER Ot K42.9 UMBILICAL HERNIA WITHOUT OBSTRUCTION OR 11/14/2016 CHRISTOMERI L DESK OFFICER Ot J44.9 CHRONIC OBSTRUCTIVE PULMONARY DISEASE, U 11/14/2016 CHRIS NICO L DESK OFFICER Ot J45.909 UNSPECIFIED ASTHMA, UNCOMPLICATED 11/14/2016 PEREZTOMERI L DESK OFFICER Ot Z79.899 OTHER [facility] (CURRENT) DRUG THERAPY 11/14/2016 MERARY SERRA DESK OFFICER Ot K42.9 UMBILICAL HERNIA WITHOUT OBSTRUCTION OR 12/21/2016 TOMER PEREZI L DESK OFFICER Ot N63 UNSPECIFIED LUMP IN BREAST 12/21/2016 TOMER PEREZI L DESK OFFICER Ot N64.4 MASTODYNIA 12/21/2016 TOMER PEREZI L DESK OFFICER Ot N63 UNSPECIFIED LUMP IN BREAST 12/21/2016 TOMER PEREZI L DESK OFFICER Ot N64.4 MASTODYNIA 12/30/2016 NICO PEREZ L DESK OFFICER Ot D24.1 BENIGN NEOPLASM OF RIGHT BREAST 01/03/2017 MERARY SERRA DESK OFFICER Ot K42.9 UMBILICAL HERNIA WITHOUT OBSTRUCTION OR 01/03/2017 CHRIS NICO L DESK OFFICER Ot J44.9 CHRONIC OBSTRUCTIVE PULMONARY DISEASE, U 01/03/2017 CHRIS NICO L DESK OFFICER Ot J45.909 UNSPECIFIED ASTHMA, UNCOMPLICATED 01/03/2017 CHRIS NICO L DESK OFFICER Ot Z79.899 OTHER [employer] (CURRENT) DRUG THERAPY 01/03/2017 CHRIS NICO L DESK OFFICER Ot N63 UNSPECIFIED LUMP IN BREAST 01/03/2017 NICO PEREZ L DESK OFFICER Ot N64.4 MASTODYNIA 01/03/2017 NICO PEREZ L DESK OFFICER Ot D24.1 BENIGN NEOPLASM OF RIGHT BREAST 01/03/2017 MERARY SERRA DESK OFFICER Ot K42.9 UMBILICAL HERNIA WITHOUT OBSTRUCTION OR 01/04/2017 TOMER PEREZI L DESK OFFICER Ot D24.1 BENIGN NEOPLASM OF RIGHT BREAST 01/05/2017 NICO PEREZ L DESK OFFICER Ot D24.1 BENIGN NEOPLASM OF RIGHT BREAST 01/06/2017 NICO PEREZ L DESK OFFICER Ot N63 UNSPECIFIED LUMP IN BREAST 01/06/2017 NICO PEREZ L DESK OFFICER Ot N64.4 MASTODYNIA 01/13/2017 NICO PEREZ L DESK OFFICER Ot D24.1 BENIGN NEOPLASM OF RIGHT BREAST 02/02/2017 NICO EPREZ DESK OFFICER Ot D24.1 BENIGN NEOPLASM OF RIGHT BREAST 03/22/2017 PEREZNICO CANO DESK OFFICER Ot D24.1 BENIGN NEOPLASM OF RIGHT BREAST 06/28/2017 NICO PEREZ DESK OFFICER Ot M54.16 RADICULOPATHY, LUMBAR REGION 07/17/2018 CHEVY [...] FOR OTHER PREPROCEDURAL EXAMIN 08/02/2018 MERARY SERRA DESK OFFICER Ot K42.9 UMBILICAL HERNIA WITHOUT OBSTRUCTION OR 08/02/2018 NICO PEREZ DESK OFFICER Ot J44.9 CHRONIC OBSTRUCTIVE PULMONARY DISEASE, U 08/02/2018 NICO PEREZ L DESK OFFICER Ot J45.909 UNSPECIFIED ASTHMA, UNCOMPLICATED 08/02/2018 PEREZNICO CANO L DESK OFFICER Ot Z79.899 OTHER [facility] (CURRENT) DRUG THERAPY 08/02/2018 TOMER PEREZI L DESK OFFICER Ot N63 UNSPECIFIED LUMP IN BREAST 08/02/2018 TOMER PEREZI L DESK OFFICER Ot N64.4 MASTODYNIA 08/02/2018 NICO PEREZ L DESK OFFICER Ot D24.1 BENIGN NEOPLASM OF RIGHT BREAST 08/02/2018 NICO PEREZ L DESK OFFICER Ot M54.16 RADICULOPATHY, LUMBAR REGION 08/06/2018 DI [...] W/O PERFORATION OR ABS 09/03/2018 MERARY SERRA DESK OFFICER Ot K42.9 UMBILICAL HERNIA WITHOUT OBSTRUCTION OR 09/03/2018 NICO PEREZ L DESK OFFICER Ot J44.9 CHRONIC OBSTRUCTIVE PULMONARY DISEASE, U 09/03/2018 NICO PEREZ L DESK OFFICER Ot J45.909 UNSPECIFIED ASTHMA, UNCOMPLICATED 09/03/2018 NICO PEREZ DESK OFFICER Ot Z79.899 OTHER [employer] WORK[employer] (CURRENT) DRUG THERAPY 09/03/2018 NICO PEREZ DESK OFFICER Ot N63 UNSPECIFIED LUMP IN BREAST 09/03/2018 NICO PEREZ DESK OFFICER Ot N64.4 MASTODYNIA 09/03/2018 NICO PEREZ DESK OFFICER Ot D24.1 BENIGN NEOPLASM OF RIGHT BREAST 09/03/2018 NICO PEREZ DESK OFFICER Ot M54.16 RADICULOPATHY, LUMBAR REGION 09/04/2018 ANA [...] M Ot R13.10 DYSPHAGIA, UNSPECIFIED 11/29/2018 DI RILEY, CICI M Ot E83.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 METABOLISM 11/29/2018 DI RILEY, CICI M Ot E87.6 HYPOKALEMIA 11/29/2018 DI RILEY, CICI M Ot J18.9 PNEUMONIA, UNSPECIFIED ORGANISM 11/29/2018 DI RILEY, CICI M Ot J45.909 UNSPECIFIED ASTHMA, UNCOMPLICATED 11/29/2018 DI RILEY, CICI Bowser Ot J93.9 PNEUMOTHORAX, UNSPECIFIED 11/29/2018 DI RILEY, CICI M Ot J98.09 OTHER DISEASES OF BRONCHUS, NOT ELSEWHER 11/29/2018 DI RILEY, CICI M Ot J98.11 ATELECTASIS 11/29/2018 DI RILEY, CICI M Ot 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 11/29/2018 DI RILEY, CICI M Ot R00.0 TACHYCARDIA, UNSPECIFIED 11/29/2018 DI RILEY, CICI M Ot R03.0 ELEVATED BLOOD-PRESSURE READING, W/O KATHRYN 11/29/2018 DI RILEY, CICI M Ot R13.10 DYSPHAGIA, UNSPECIFIED 11/29/2018 DI RILEY, CICI M Ot E83.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 METABOLISM 11/29/2018 DI RILEY, CICI M Ot E87.6 HYPOKALEMIA 11/29/2018 DI RILEY, CICI M Ot J18.9 PNEUMONIA, UNSPECIFIED ORGANISM 11/29/2018 DI RILEY, CICI M Ot J45.909 UNSPECIFIED ASTHMA, UNCOMPLICATED 11/29/2018 DI RILEY, CICI M Ot J93.9 PNEUMOTHORAX, UNSPECIFIED 11/29/2018 DI RILEY, CICI M Ot J98.09 OTHER DISEASES OF BRONCHUS, NOT ELSEWHER 11/29/2018 DI RILEY, CICI M Ot J98.11 ATELECTASIS 11/29/2018 DI RILEY, CICI M Ot 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 11/29/2018 DI RILEY, CICI M Ot R00.0 TACHYCARDIA, UNSPECIFIED 11/29/2018 DI RILEY, CICI M Ot R03.0 ELEVATED BLOOD-PRESSURE READING, W/O KATHRYN 11/29/2018 DI RILEY, CICI M Ot R13.10 DYSPHAGIA, UNSPECIFIED 11/30/2018 DI RILEY, CICI M Ot E44.0 MODERATE PROTEIN-CALORIE MALNUTRITION 11/30/2018 DI RILEY, CICI M Ot E83.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 METABOLISM 11/30/2018 DI RILEY, CICI Bowser Ot E87.6 HYPOKALEMIA 11/30/2018 DI RILEY, CICI Bowser Ot J15.212 PNEUMONIA DUE TO METHICILLIN RESISTANT S 11/30/2018 DI RILEY, CICI Bowser Ot J18.9 PNEUMONIA, UNSPECIFIED ORGANISM 11/30/2018 DI RILEY, CICI Bowser Ot J45.909 UNSPECIFIED ASTHMA, UNCOMPLICATED 11/30/2018 DI RILEY, CICI Bowser Ot J93.9 PNEUMOTHORAX, UNSPECIFIED 11/30/2018 DI RILEY, CICI M Ot J98.09 OTHER DISEASES OF BRONCHUS, NOT ELSEWHER 11/30/2018 DI RILEY, CICI M Ot J98.11 ATELECTASIS 11/30/2018 DI RILEY, CICI M Ot 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 11/30/2018 DI RILEY, CICI M Ot K21.9 GASTRO-ESOPHAGEAL REFLUX DISEASE WITHOUT 11/30/2018 DI RILEY, CICI M Ot R00.0 TACHYCARDIA, UNSPECIFIED 11/30/2018 DI RILEY, CICI M Ot R03.0 ELEVATED BLOOD-PRESSURE READING, W/O KATHRYN 11/30/2018 DI RILEY, CICI M Ot R13.10 DYSPHAGIA, UNSPECIFIED Procedures Code Description Performed By Performed On 1ULH1HG SUPPLEMENT R DIAPHRAGM WITH NONAUT SUB, 01/13/2016 [id number] SUPPLEMENT L DIAPHRAGM WITH NONAUT SUB, 01/13/2016 [id number] REPOSITION STOMACH, PERCUTANEOUS ENDOSCO 01/13/2016 [id number] REPOSITION TRANSVERSE COLON, PERC ENDO A 01/13/2016 [id number] 01/13/2016 [id number] RESTRICTION OF ESOPHAGOGASTRIC JUNCTION, 01/13/2016 [id number] REPOSITION PANCREAS, PERCUTANEOUS ENDOSC 01/13/2016 [id number] ROBOTIC ASSISTED PROCEDURE OF TRUNK, PER 01/13/2016 [id number] Robotic Assisted Procedure of Trunk Region, Percutaneous Endoscopic Approac 11/14/2018 [id number] DRAINAGE OF L PLEURAL CAV WITH DRAIN DEV 11/23/2018 [id number] DRAINAGE OF LEFT LOWER LOBE BRONCHUS, EN 11/25/2018 [id number] EXTIRPATION OF MATTER FROM LEFT LOWER LO 11/25/2018 Results Test Result Range Methicillin resistant Staphylococcus aureus (MRSA) screening culture - 07:45 MRSA SCREEN RESULT MRSA ISOLATED [facility] Complete blood count (CBC) with automated white [...] 0.0 10*3/uL 0.0-0.1 Comprehensive metabolic panel - 18 21:30 Serum or plasma sodium measurement (moles/volume) [...] FOR INFLUENZA A AND B ANTIGENS BY IA [facility] Comprehensive metabolic panel - 11/23/18 14:57 Serum [...] or plasma urea nitrogen/creatinine mass ratio 22 [facility] Serum or plasma creatinine measurement with calculation of estimated glomerular filtration rate > [facility] Serum or plasma glucose measurement (mass/volume) 93 [...] NRG FREE TEXT ENTRY 2 SUSCEPTIBILITY REPORT [facility] 11/27 12:05 NRG FREE TEXT ENTRY 3 MRSA REPORTED TO [facility] 11/27 12:24 NRG RML Sensitivity Panel - [...] FEW NRG C FUNGUS SPUTUM FLUID TISSUE [id number] Mycobacterium species detection by organism specific [...] - 11/26/18 20:15 Bacterial blood culture NG NR Bacterial blood culture - 11/26/18 20:19 Bacterial blood culture NG NR Complete blood count (CBC) with automated white [...] - 11/30/18 05:16 Magnesium 1.9 mg/dL 1.8-2.4 Vancomycin trough - 11/30/18 12:25 Vancomycin trough 17.4 ug/mL 10.0-20.0 Capillary blood glucose measurement by glucometer (mass/volume) - 12/01/18 05: 28 Capillary blood glucose measurement by glucometer (mass/volume) 132 mg/dL 70-110 Complete blood count (CBC) with automated white blood cell (WBC) differential - 12/02/18 05:13 Blood leukocytes automated count (number/volume) 11.4 10*3/uL 4.3-11.0 Blood erythrocytes automated count (number/volume) 3.84 10*6/uL 4.35-5.85 Venous blood hemoglobin measurement (mass/volume) 11.1 g/dL 11.5-16.0 Blood hematocrit (volume fraction) 34 % 35-52 Automated erythrocyte mean corpuscular volume 89 [foz_us] 80-99 Automated erythrocyte mean corpuscular hemoglobin (mass per erythrocyte) 29 pg 25-34 Automated erythrocyte mean corpuscular hemoglobin concentration measurement ( mass/volume) 32 g/dL 32-36 Automated erythrocyte distribution width ratio 13.2 % 10.0-14.5 Automated blood platelet count (count/volume) 455 10*3/uL 130-400 Automated blood platelet mean volume measurement 8.5 [foz_us] 7.4-10.4 Automated blood neutrophils/100 leukocytes 68 % 42-75 Automated blood lymphocytes/100 leukocytes 17 % 12-44 Blood monocytes/100 leukocytes 10 % 0-12 Automated blood eosinophils/100 leukocytes 5 % 0-10 Automated blood basophils/100 leukocytes 1 % 0-10 Blood neutrophils automated count (number/volume) 7.8 10*3 1.8-7.8 Blood lymphocytes automated count (number/volume) 1.9 10*3 1.0-4.0 Blood monocytes automated count (number/volume) 1.1 10*3 0.0-1.0 Automated eosinophil count 0.6 10*3/uL 0.0-0.3 Automated blood basophil count (count/volume) 0.1 10*3/uL 0.0-0.1 Comprehensive metabolic panel - 12/02/18 05:13 Serum or plasma sodium measurement (moles/volume) 133 mmol/L 135-145 Serum or plasma potassium measurement (moles/volume) 4.3 mmol/L 3.6-5.0 Serum or plasma chloride measurement (moles/volume) 103 mmol/L 98-107 Carbon dioxide 21 mmol/L 21-32 Serum or plasma anion gap determination (moles/volume) 9 mmol/L 5-14 Serum or plasma urea nitrogen measurement (mass/volume) 8 mg/dL 7-18 Serum or plasma creatinine measurement (mass/volume) 0.53 mg/dL 0.60-1.30 Serum or plasma urea nitrogen/creatinine mass ratio 15 NRG Serum or plasma creatinine measurement with calculation of estimated glomerular filtration rate > NRG Serum or plasma glucose measurement (mass/volume) 127 mg/dL 70-105 Serum or plasma calcium measurement (mass/volume) 8.8 mg/dL 8.5-10.1 Serum or plasma total bilirubin measurement (mass/volume) 0.3 mg/dL 0.1-1.0 Serum or plasma alkaline phosphatase measurement (enzymatic activity/volume) 217 U/L 40-136 Serum or plasma aspartate aminotransferase measurement (enzymatic activity/ volume) 49 U/L 5-34 Serum or plasma alanine aminotransferase measurement (enzymatic activity/volume ) 66 U/L 0-55 Serum or plasma protein measurement (mass/volume) 6.7 g/dL 6.4-8.2 Serum or plasma albumin measurement (mass/volume) 2.8 g/dL 3.2-4.5 CALCIUM CORRECTED 9.8 mg/dL 8.5-10.1 Blood manual differential performed detection - 12/02/18 05:13 Blood monocytes/100 leukocytes 12 % NRG Manual blood segmented neutrophils/100 leukocytes 77 % NRG Manual blood lymphocytes/100 leukocytes 10 % NRG Manual eosinophils/100 leukocytes in nose 1 % NRG Serum or plasma phosphate measurement (mass/volume) - 12/02/18 05:13 Serum or plasma phosphate measurement (mass/volume) 4.5 mg/dL 2.3-4.7 Magnesium - 12/02/18 05:13 Magnesium 1.9 mg/dL 1.8-2.4 Capillary blood glucose measurement by glucometer (mass/volume) - 12/03/18 05: 20 Capillary blood glucose measurement by glucometer (mass/volume) 112 mg/dL 70-110 Capillary blood glucose measurement by glucometer (mass/volume) - 12/04/18 05: 32 Capillary blood glucose measurement by glucometer (mass/volume) 117 mg/dL 70-110 Complete blood count (CBC) with automated white blood cell (WBC) differential - 12/04/18 09:42 Blood leukocytes automated count (number/volume) 10.6 10*3/uL 4.3-11.0 Blood erythrocytes automated count (number/volume) 3.74 10*6/uL 4.35-5.85 Venous blood hemoglobin measurement (mass/volume) 10.9 g/dL 11.5-16.0 Blood hematocrit (volume fraction) 34 % 35-52 Automated erythrocyte mean corpuscular volume 90 [foz_us] 80-99 Automated erythrocyte mean corpuscular hemoglobin (mass per erythrocyte) 29 pg 25-34 Automated erythrocyte mean corpuscular hemoglobin concentration measurement ( mass/volume) 33 g/dL 32-36 Automated erythrocyte distribution width ratio 13.6 % 10.0-14.5 Automated blood platelet count (count/volume) 425 10*3/uL 130-400 Automated blood platelet mean volume measurement 8.2 [foz_us] 7.4-10.4 Automated blood neutrophils/100 leukocytes 70 % 42-75 Automated blood lymphocytes/100 leukocytes 15 % 12-44 Blood monocytes/100 leukocytes 9 % 0-12 Automated blood eosinophils/100 leukocytes 6 % 0-10 Automated blood basophils/100 leukocytes 1 % 0-10 Blood neutrophils automated count (number/volume) 7.4 10*3 1.8-7.8 Blood lymphocytes automated count (number/volume) 1.6 10*3 1.0-4.0 Blood monocytes automated count (number/volume) 0.9 10*3 0.0-1.0 Automated eosinophil count 0.6 10*3/uL 0.0-0.3 Automated blood basophil count (count/volume) 0.1 10*3/uL 0.0-0.1 Comprehensive metabolic panel - 12/04/18 09:42 Serum or plasma sodium measurement (moles/volume) 129 mmol/L 135-145 Serum or plasma potassium measurement (moles/volume) 4.1 mmol/L 3.6-5.0 Serum or plasma chloride measurement (moles/volume) 103 mmol/L 98-107 Carbon dioxide 23 mmol/L 21-32 Serum or plasma anion gap determination (moles/volume) 3 mmol/L 5-14 Serum or plasma urea nitrogen measurement (mass/volume) 11 mg/dL 7-18 Serum or plasma creatinine measurement (mass/volume) 0.59 mg/dL 0.60-1.30 Serum or plasma urea nitrogen/creatinine mass ratio 19 NRG Serum or plasma creatinine measurement with calculation of estimated glomerular filtration rate > NRG Serum or plasma glucose measurement (mass/volume) 125 mg/dL 70-105 Serum or plasma calcium measurement (mass/volume) 9.0 mg/dL 8.5-10.1 Serum or plasma total bilirubin measurement (mass/volume) 0.3 mg/dL 0.1-1.0 Serum or plasma alkaline phosphatase measurement (enzymatic activity/volume) 230 U/L 40-136 Serum or plasma aspartate aminotransferase measurement (enzymatic activity/ volume) 46 U/L 5-34 Serum or plasma alanine aminotransferase measurement (enzymatic activity/volume ) 70 U/L 0-55 Serum or plasma protein measurement (mass/volume) 6.9 g/dL 6.4-8.2 Serum or plasma albumin measurement (mass/volume) 2.8 g/dL 3.2-4.5 CALCIUM CORRECTED 10.0 mg/dL 8.5-10.1 Capillary blood glucose measurement by glucometer (mass/volume) - 12/05/18 06: 22 Capillary blood glucose measurement by glucometer (mass/volume) 127 mg/dL 70-110 Encounters ACCT No. Visit Date/Time Discharge Status Pt. Type Provider Facility Loc./Unit Complaint [id number] 11/23/2018 19:05:00 11/30/2018 11:20:00 DIS Outpatient CICI SEVILLA MD [facility] 4TH PNEUMOTHORAX,LEFT [id number] 09/03/2018 20:06:00 09/04/2018 01:59:00 DIS Emergency ANA RILEY, BRAYDON Browne [facility] ER HAD EPIDURAL DONE TODAY/STOMACH PAIN [id number] 08/06/2018 09:02:00 08/06/2018 23:59:59 CLS Outpatient CICI SEVILLA MD [facility] ENDO EPIGASTIC PAIN/GERD [id number] 07/31/2018 06:38:00 07/31/2018 15:21:00 DIS Outpatient CICI SEVILLA MD [facility] PREOP EGD [id number] 07/17/2018 07:36:00 07/17/2018 10:55:00 DIS Emergency CHEVY BANDA MD [facility] ER ABD PAIN [id number] 06/16/2017 07:40:00 06/16/2017 23:59:59 CLS Outpatient NICO PEREZ DESK OFFICER [facility] RAD LUMBAR RADICULOPATHY [id number] 12/28/2016 08:29:00 12/28/2016 23:59:59 CLS Outpatient NICO PEREZ DESK OFFICER [facility] RAD RT BREAST MASS [id number] 12/20/2016 07:35:00 12/20/2016 23:59:59 CLS Outpatient NICO PEREZ DESK OFFICER [facility] RAD RT BREAST PAIN,TUGGING X1 MONTH [id number] 08/30/2016 07:23:00 08/30/2016 23:59:59 CLS Outpatient NICO PEREZ DESK OFFICER [facility] LAB [facility] MEDICATIONS USE ,ASTHMA/COPD [id number] 06/15/2016 07:22:00 06/17/2016 13:00:00 DIS Outpatient CICI SEVILLA MD [facility] SDC VENTRAL HERNIA [id number] 06/13/2016 05:51:00 06/13/2016 14:36:00 DIS Outpatient CICI SEVILLA MD [facility] PREOP VENTRAL HERNIA [id number] 06/07/2016 14:29:00 06/07/2016 23:59:59 CLS Outpatient MERARY SERRA APRN [facility] RAD UMBILICAL HERNIA, SEVERE PAIN W/ UMBILICAL BULGE [id number] 01/13/2016 08:57:00 01/19/2016 12:30:00 DIS Inpatient CICI SEVILLA MD [facility] 4TH HIATAL HERNIA [id number] 01/07/2016 08:48:00 01/07/2016 09:23:00 DIS Outpatient CICI SEVILLA MD [facility] PREOP HIATAL HERNIA [id number] 12/21/2015 11:52:00 12/21/2015 15:20:00 DIS Outpatient CICI SEVILLA MD [facility] UPPER GASTRIC PAIN [id number] 12/08/2015 09:39:00 12/08/2015 13:02:00 DIS Emergency JACQUELIN RIVERA DO [facility] ER CP, CHEST TIGHTNESS [id number] 11/30/2018 11:25:00 ACT Inpatient BISHOP VAN DO [facility] IRF DEBILITY, PNUEMONIA [id number] 12/18/2015 07:34:00 Document Registration [id number] 12/08/2015 13:09:00 Document Registration [id number] 12/08/2015 13:09:00 Document Registration [id number] 11/28/2014 08:18:00 Document Registration [id number] 09/24/2018 09:52:00 09/24/2018 23:59:00 DIS Outpatient Diaz Justice [facility] FC Surg NPV Hernia [id number] 09/25/2018 05:21:41 Document Registration [id number] 11/14/2018 09:25:00 11/16/2018 16:28:00 DIS Inpatient Justice [facility]es[facility] // robot assist recurrent pa [id number] 11/17/2018 05:20:34 Document Registration [id number] 11/16/2018 05:20:24 Document Registration [id number] 11/15/2018 05:19:53 Document Registration
[2018-12-06 11:25] LABS: BODY FLUID SOURCE BRONCH WASH
[2018-12-06 11:26] LABS: BF OTHER CELLS 29 %; BODY FLUID APPEARENCE MOD CLDY; BODY FLUID COLOR PALE RED
== END | disposition home or self-care (01) ==
LOC: ENDO 08:46
PROVIDERS: ATTEND Internal Medicine Critical Care Medicine
DX: J98.11 Atelectasis (principal); J98.09 Other diseases of bronchus, not elsewhere classified
CPT/HCPCS: 87015; 87070; 87101; 87116; 87205; 87206; 88112; 88305; 89051

== ENCOUNTER 2019-01-07 12:52 | Outpatient (CLI) | payer BC ==
[~2019-01-07] VITALS: Ht 149.9 cm; Wt 40.8 kg
[~2019-01-07 12:52] MED LIST changes: -MIDAZOLAM 2 MG/2 ML (VERSED) VIAL IVP ONE; -NS IV 500 ML 500 ML IV PRN; -fentaNYL INJECTION 100 MCG/2 ML AMP IVP ONE
== END 2019-01-07 13:16 | disposition home or self-care (01) ==
LOC: PREOP 12:52
PROVIDERS: ATTEND Surgery
DX: Z01.818 Encounter for other preprocedural examination (principal)

== ENCOUNTER 2019-01-08 11:08 | Inpatient (IN) | payer BC ==
[~2019-01-08] VITALS: Ht 149.9 cm; Wt 40.8 kg
[2019-01-08] MEDS ORDERED: NS IV 500 ML 500 ML IV PRN (11:10)
[2019-01-08] MEDS ORDERED: HURRICAINE EXT TUBE (BENZOCAINE) XX PRN (11:15)
[2019-01-08] MEDS ORDERED: MIDAZOLAM 2 MG/2 ML (VERSED) VIAL IVP ONE (11:15)
[2019-01-08] MEDS ORDERED: LIDOCAINE JELLY 2% 6 ML SYRINGE MM PRN (11:15)
[2019-01-08] MEDS ORDERED: fentaNYL INJECTION 100 MCG/2 ML AMP IVP ONE (11:15)
[2019-01-08] MEDS ORDERED: NS IV 500 ML 500 ML ONE (11:20)
[2019-01-08] MEDS ORDERED: CATHETER FLUSH 10 ML SYR IV PRN (11:30)
[2019-01-08 11:33] VITALS: BP 143/104
[2019-01-08] MEDS ORDERED: fentaNYL INJECTION 100 MCG/2 ML AMP ONE ×2 (12:04→12:50)
[2019-01-08] MEDS ORDERED: LIDOCAINE JELLY 2% 6 ML SYRINGE ONE (12:04)
[2019-01-08] MEDS ORDERED: MIDAZOLAM 2 MG/2 ML (VERSED) VIAL ONE ×6 (12:04→12:50)
[2019-01-08] MEDS ORDERED: HURRICAINE EXT TUBE (BENZOCAINE) ONE (12:05)
--- NOTE | 2019-01-08 13:40 | Conscious Sedation/ASA ---
Conscious Sedation Pre-Proced Time 12:00 ASA Score 2 For ASA 3 and 4: Consider anesthesia and medical clearance. Also, for patients with a history of failed moderate sedation consider anesthesia. Airway Lungs Heart ASA score ASA 1: a normal healthy patient ASA 2: a patient with a mild systemic disease (mid diabetes, controlled hypertension, obesity ASA 3: a patient with a severe systemic disease that limits activity (angina , COPD, prior Myocardial infarction) ASA 4: a patient with an incapacitating disease that is a constant threat to life (CHF, renal failure) ASA 5: a moribund patient not expected to survive 24 hrs. (ruptured aneurysm) ASA 6: a declared brain- patient whose organs are being harvested. For emergent operations, add the letter E after the classification Mallampati Classification Grade 2 Sedation Plan Analgesia, Amnesia, Plan communicated to team members, Discussed options with patient/fam, Discussed risks with patient/fam The patient is an appropriate candidate to undergo the planned procedure, sedation, and anesthesia. The patient immediately re-assessed prior to indication. TAI SANCHEZ MD Jan 08, 2019 13:40
--- NOTE | 2019-01-08 13:41 | Progress Note-Pre Operative ---
Pre-Operative Progress Note H&P Reviewed The H&P was reviewed, patient examined and no changes noted. Date Seen by Provider: Jan 08, 2019 Time Seen by Provider: 12:00 Date H&P Reviewed: Jan 08, 2019 Time H&P Reviewed: 12:00 Pre-Operative Diagnosis: dysphagia TAI SANCHEZ MD Jan 08, 2019 13:41
--- NOTE | 2019-01-08 13:43 | Progress Note-Post Operative ---
Post-Operative Progess Note Surgeon (s)/Mushroom Press Operator (s) Surgeon TAI SANCHEZ MD Mushroom Press Operator: none Pre-Operative Diagnosis dysphagia Post-Operative Diagnosis severe distal esophageal stricture impassible per gastroscope and bronchoscope, retained esophageal suture. Procedure & Operative Findings Date of Procedure 01/08/19 Procedure Performed/Findings EGD with brushings and bx Anesthesia Type cs Estimated Blood Loss Estimated blood loss (mL): minimal Specimens/Packing Specimens Removed esophageal plaques, ge jxn TAI SANCHEZ MD Jan 08, 2019 13:43
[2019-01-08] MEDS ORDERED: ONDANSETRON 4 MG/2 ML (SDV) Z0FRAN IVP PRN (13:45)
[2019-01-08] MEDS ORDERED: ACETAMINOPHEN 325 MG TABLET PO PRN (13:45)
[2019-01-08] MEDS ORDERED: HYDROcodone/APAP 7.5MG-325 MG/15 ML (LORTAB) UDC PO PRN (13:45)
[2019-01-08] MEDS ORDERED: SIMETHICONE 40 MG/0.6 ML (MYLICON DROPS) 30 ML BTL PO PRN (13:45)
[2019-01-08] MEDS ORDERED: TPN IV SCH (13:45)
--- NOTE | 2019-01-08 14:00 | NUR ---
PATIENT RETURNED FROM ENDOSCOPY PROCEDURE ROOM VIA CART IN STABLE CONDITION. REMAINS VERY SEDATED, WILL ANSWER, KEEPS EYES CLOSED, O2 ON VIA SIMPLE MASK WITH 10L/M 100% WITH SAT'S 98%, DAUGHTER AT BEDSIDE, DR. SANCHEZ HERE, PLAN TO ADMIT PATIENT.
--- NOTE | 2019-01-08 14:15 | NUR ---
PICC LINE BEING INSERTED AT THIS TIME BY VALERIE Mar, PATIENT REMAINS VERY DROWSY, VITALS STABLE, WARM BLANKET ON AFTER PROCEDURE WITH CXR ORDERED. DAUGHTER AT BEDSIDE, WAITING FOR ROOM ON FLOOR AT THIS TIME.
[2019-01-08 14:30] VITALS: BP 104/65
[2019-01-08] MEDS ORDERED: LACTATED RINGERS 1,000 ML IV ONE ×3 (14:52→20:00)
[2019-01-08 15:00] VITALS: BP 109/79
--- NOTE | 2019-01-08 15:00 | NUR ---
LR INFUSING AT 100/HR, REMAINS DROWSY, COLOR PALE, VITALS STABLE, CONTINUE TO WAIT FOR ROOM. REMAINS ON 100% 02 VIA SIMPLE MASK WITH SAT'S 97%, REMAINS VERY DROWSY WITH EPISODES OF DREAMING, CALLING OUT NAMES, DAUGHTER REMAINS AT BEDSIDE. NO CHANGE.
--- NOTE | 2019-01-08 16:13 | Diagnostic Imaging Report ---
INDICATION: Status post EGD and PICC line placement TIME OF EXAM: 2:46 PM CORRELATION is made with prior chest from 12/07/2018. FINDINGS: A left upper extremity PICC line has the tip in good position overlying the SVC/right atrial junction. There is some subsegmental atelectasis in both bases. There is mild streaky air density identified in the mediastinum as well as the soft tissues overlying the lower neck, suspicious for pneumomediastinum. In addition, images of the upper abdomen demonstrate findings suggestive of pneumoperitoneum. There appears to be gas along the right abdomen and liver. There is a double wall sign involving central small bowel loops. Surgical clips in the right upper quadrant are noted. IMPRESSION: 1. Satisfactory PICC line placement. 2. Mild bibasilar subsegmental atelectasis. 3. Findings suspicious for pneumomediastinum and pneumoperitoneum. Results were discussed with Dr. Ley. The patient will be scheduled for CT [facility] the [facility] characterization. Dictated by: Dictated on workstation # [id number]
--- NOTE | 2019-01-08 16:15 | NUR ---
PATIENT TAKEN TO 4TH FLOOR ROOM #415 VIA CART WITH PORTABLE 02 AT 10L. ASSISTED OVER TO BED WITH REPORT GIVEN TO R.N. WITH NO CHANGE, NO C/O.
[2019-01-08 16:20] VITALS: BP 109/79
--- NOTE | 2019-01-08 16:20 | NUR ---
HERBERT XAVIER admitted to room 415-1, with an admitting diagnosis of esophageal skicture- malnutritial, on 01/08/19 from ENDO RECOVERY via CART, accompanied by ENDO RECOVERY.HERBERT XAVIER introduced to surroundings, call light, bed controls, phone, TV, temperature control, lights, meal times, smoking policy, visitor policy, side rail policy, bathrooms and showers. Patient Rights given to patient in the handbook. HERBERT XAVIER verbalizes understanding that [facility] is not responsible for the loss or damage to any personal effects or valuables that are kept in the patients posession during their hospitalization. The following Patient Care Plans were discussed with the PT AND DAUGHTER: Discharge Planning, HIGH RISK ASPIRATION, NUT.<BODY REQUIREMENT, HIGH RISK VOL. VOL. DEFICIT HERBERT XAVIER verbalizes understanding of Interdisciplinary Patient Education. Patient and/or family were informed about the Rapid Response Team and its purpose. NOTE THAT PICC LNE WAS PLACED WHILE PT IN ENDO LAB -- AND AFTER PT IN ROOM IGOR FROM DAY SURG CALLED AND VOICED PER XRAY PICC LINE WAS OK TO USE
[2019-01-08] MEDS ORDERED: FLUCONAZOLE 200 MG/100 ML 50 ML, SYRINGE-IVPB 1 SYRINGE IV NR ×2 (16:30)
[2019-01-08] MEDS: LACTATED RINGERS 1,000 ML IV SCH ×2 (17:05→20:42)
[2019-01-08] MEDS: fentaNYL INJECTION 100 MCG/2 ML AMP IVP PRN ×2 (17:05→22:16)
[2019-01-08 18:54] LABS: HEMOGLOBIN 14.2 G/DL (11.5-16.0); MEAN PLATELET VOLUME 9.2 FL (7.4-10.4); RED CELL DISTRIBUTION WIDTH 14.9 % (10.0-14.5); WHITE BLOOD COUNT 26.2 10^3/uL (4.3-11.0)
--- NOTE | 2019-01-08 18:55 | NUR ---
CALLED PHARMACY ABOUT THE IV ZOSYN ORDERED -- WHEN VERIFIED THEY WILL SENT TO FLOOR
[2019-01-08] MEDS ORDERED: PIPERACILLIN/TAZO 4.5 GM/NS 100 ML IV NR ×2 (19:00)
[2019-01-08 19:34] LABS: ALANINE AMINOTRANSFERASE 25 U/L (0-55); ALBUMIN 3.4 GM/DL (3.2-4.5); ALKALINE PHOSPHATASE 153 U/L (40-136); BILIRUBIN,TOTAL 0.4 MG/DL (0.1-1.0); BUN/CREATININE RATIO 14; CALCIUM 9.6 MG/DL (8.5-10.1); CARBON DIOXIDE 11 MMOL/L (21-32); CHLORIDE 109 MMOL/L (98-107); CREATININE SERUM 0.87 MG/DL (0.60-1.30); GFR ESTIMATED > 60; GLUCOSE 206 MG/DL (70-105); POTASSIUM 3.7 MMOL/L (3.6-5.0); SODIUM 143 MMOL/L (135-145); TOTAL PROTEIN 7.6 GM/DL (6.4-8.2)
--- NOTE | 2019-01-08 19:50 | NUR ---
Dr. Ley notified of lab results (wbc's at 26.2) and increased hr > 110. New orders rec to give 500 ml bolus LR x 1 hour, Lopressor 5mg IV q 6 hrs (hold for hr < 50; SBP < 90), start albuterol treatments q 6 hrs; O2 to keep sats > 92%; telemetry; NPO, and schedule CT chest/abdomen with oral contrast for 01/09/19.
[2019-01-08 20:00] VITALS: BP 127/89
[2019-01-08] MEDS: RT-ALBUTEROL SULF 2.5 MG/3 ML PRE-MIX VIAL INH SCH (20:25)
--- NOTE | 2019-01-08 20:34 | OPERATIVE REPORT ---
DATE OF SERVICE: 01/08/2019 PREOPERATIVE DIAGNOSIS: Dysphagia. POSTOPERATIVE DIAGNOSES: Severe esophageal stricture, esophageal candidiasis, and malnutrition. PROCEDURES PERFORMED: 1. Esophageal brushings, attempted dilatation of the stricture; however, unsuccessful due to the severity of the stricture. Visible suture through the esophageal opening. 2. Esophagogastroduodenoscopy with brushing and biopsy. SURGEON: Tai Sanchez MD. ANESTHESIA: Conscious sedation. ESTIMATED BLOOD LOSS: Minimal. FINDINGS: Severe distal esophageal stricture impassable to a gastroscope as well as the bronchoscope as well as at the balloon dilatation catheter. Esophageal candidiasis and malnutrition. DISPOSITION: The patient tolerated the procedure well. INDICATIONS: The patient is a 58-year-old female with a longstanding history of gastroesophageal reflux disease as well as a significant-sized hiatal hernia. She underwent a laparoscopic repair in 2016; however, had reoccurrence. This was then repaired laparoscopically again; however, she had a second reoccurrence and was then referred to [facility] for a robotic-assisted recurrent hiatal hernia repair. This was done approximately 8 weeks ago and she has had severe progressive dysphagia and inability to swallow any fluids as well as liquids. Upon examination, she appeared somewhat cachectic as well as dehydrated with a weight of only 40 kilograms. DESCRIPTION OF PROCEDURE: The patient was brought to the endoscopy suite, laid in left lateral decubitus position with the head slightly elevated. After adequate IV pain and sedative medications and conscious sedation anesthesia, the mouthpiece was applied. The endoscope was placed in the mouth, visualizing the pharynx and hypopharyngeal region. Vocal cords, epiglottis and vallecula identified and appeared to be normal. The endoscope was then gently intubated. The esophageal opening and esophagus insufflated. Endoscope was then advanced to the 1st, 1st, 2nd and 3rd portion of the esophagus. There was significant esophageal candidiasis identified from the most likely retained food substance within the esophagus. A very severe stricture was identified at the distal esophagus as well. Multiple attempts were made to pass the gastroscope however, unsuccessful. Retained suture was identifiable. An attempt was made to place the balloon catheter through; however, unsuccessful either due to the severity of stricture versus an angulation of the esophagus. An attempt was made to pass a bronchoscope through this region; however, again unsuccessful. Due to the severity of the stricture as well as malnutrition as well as most likely severe dehydration, we will admit her, start her on IV fluids as well as TPN as well as Diflucan and Protonix. She will need further definitive therapy with most likely esophageal reconstruction at some point. We will most likely entail esophageal resection and anastomosis. However, due to the multitude of previous lower esophageal and upper gastric surgery as well as adhesion tissue as well as a more recent surgery approximately 8 weeks ago, she may need further evaluation and workup as well as nutritional support. For now, we will admit her and proceed with a PICC line as well as IV fluids as well as TPN. Job ID: [id number] DocumentID: [id number] Dictated Date: 01/08/2019 14:01:31 Stock Controller Date: 01/08/2019 20:33:31 Dictated By: TAI SANCHEZ MD
[2019-01-09] VITALS: BP 159/92
[2019-01-09] MEDS: meTOprolol 5 MG/5 ML (LOPRESSOR) VIAL IV SCH ×3 (00:12→12:15)
[2019-01-09] MEDS: PIPERACILLIN/TAZOBACTAM (BULK) 4.5 GM in NS (IVPB) 100 ML IV SCH ×2 (00:14→10:54)
[2019-01-09] MEDS: fentaNYL INJECTION 100 MCG/2 ML AMP IVP PRN ×6 (01:42→16:53)
[2019-01-09] MEDS: RT-ALBUTEROL SULF 2.5 MG/3 ML PRE-MIX VIAL INH SCH ×3 (02:31→14:56)
[2019-01-09 04:00] VITALS: BP 133/88
[2019-01-09 05:14] LABS: MEAN PLATELET VOLUME 9.1 FL (7.4-10.4); RED CELL DISTRIBUTION WIDTH 14.8 % (10.0-14.5); WHITE BLOOD COUNT 18.5 10^3/uL (4.3-11.0)
[2019-01-09 05:26] LABS: INR 1.1 (0.8-1.4); PROTHROMBIN TIME PATIENT 14.2 SEC (12.2-14.7)
[2019-01-09 05:36] LABS: ALANINE AMINOTRANSFERASE 27 U/L (0-55); ALBUMIN 2.8 GM/DL (3.2-4.5); ALKALINE PHOSPHATASE 120 U/L (40-136); BILIRUBIN,TOTAL 0.4 MG/DL (0.1-1.0); BUN/CREATININE RATIO 16; CARBON DIOXIDE 15 MMOL/L (21-32); CHLORIDE 109 MMOL/L (98-107); CREATININE SERUM 0.75 MG/DL (0.60-1.30); GFR ESTIMATED > 60; GLUCOSE 174 MG/DL (70-105); MAGNESIUM 1.2 MG/DL (1.8-2.4); PHOSPHORUS 4.5 MG/DL (2.3-4.7); POTASSIUM 3.7 MMOL/L (3.6-5.0); SODIUM 143 MMOL/L (135-145); TOTAL PROTEIN 6.5 GM/DL (6.4-8.2); TRIGLYCERIDES 79 MG/DL (<150)
[2019-01-09] MEDS: LACTATED RINGERS 1,000 ML IV SCH (06:55)
[2019-01-09 08:00] VITALS: BP 153/89
--- NOTE | 2019-01-09 08:00 | NUR ---
patient off floor for CT at this time.
--- NOTE | 2019-01-09 08:28 | NUR ---
back from CT at this time.
[2019-01-09] MEDS ORDERED: FLUCONAZOLE 200 MG/100 ML 100 ML IV SCH (09:00)
[2019-01-09] MEDS ORDERED: PANTOPRAZOLE 40 MG (PROTONIX) VIAL IV SCH (09:00)
--- NOTE | 2019-01-09 09:31 | Diagnostic Imaging Report ---
PROCEDURE: CT chest and abdomen with contrast. TECHNIQUE: Multiple contiguous axial images were obtained through the chest and abdomen after the administration of intravenous contrast. Auto Exposure Controls were utilized during the CT exam to meet ALARA standards for radiation dose reduction. INDICATION: Status post hiatal hernia repair and redo. Patient has difficulty swallowing. Patient status post endoscopy. Recent chest radiograph raised question of pneumomediastinum and pneumoperitoneum. Study is performed for further evaluation. CT chest: Extensive subcutaneous gas is identified in the soft tissues of the lower neck as well as in the tissues of the anterior chest wall bilaterally. There is a large pneumomediastinum present. There is a small volume of contrast identified in the esophagus but no bassam extravasation is seen. There appears to be a trace amount of gas within the pleural space bilaterally. No pericardial or pleural fluid is seen. There is some scarring or atelectasis in the right upper lobe. There is also some scarring or atelectasis in the lingula. CT abdomen: There is a very large pneumoperitoneum. There are distended gas-filled small bowel loops throughout the abdomen. Postoperative changes to the stomach are again seen. Previously noted gas collection near the GE junction on prior CT appears to be decreased in size. There are small gas collections at this location which are indeterminate. Minimal extraluminal contrast along the greater curvature of the stomach previously described has decreased but small amount does remain present. Liver is unremarkable. Pancreas and spleen are unremarkable. Kidneys are unremarkable. The aorta is non-aneurysmal. There is no free fluid. IMPRESSION: Large pneumomediastinum as well as pneumoperitoneum with subcutaneous gas in the soft tissues of the neck and anterior chest. Features are concerning for perforated viscus, potentially the esophagus, however, no bassam extravasation of contrast is seen. Moderate gaseous distention of small bowel loops in the upper abdomen is noted as well. This may be secondary to insufflation from recent endoscopy. Results were discussed with Dr. Ley prior to this dictation. Dictated by: Dictated on workstation # [id number]
--- NOTE | 2019-01-09 09:34 | Consultation-Hospitalist ---
HPI History of Present Illness: HPI/Chief Complaint Chief Compliant: Severe dehydration and weakness Requesting physician for consultation: Dr. Ley HPI: This is a 58yoWF that was just discharged one month ago from inpatient rehab after a three week hospital course after recovering from MRSA pneumonia and severe complications from a hiatal hernia surgery for the third time out of [facility] (who I recommended PEG tube several times prior to DC from [facility]) who presented to Dr. Ley's office placed Pt in the hospital given IV fluids and peripheral line started and underwent an EGD that had such a severe esophageal stricture that even a bronchoscope could not be passed. She is having widespread pain everywhere, nothing specific but she does remain drowsy so it will be difficult to treat any severe pain when its not consistent with the exam. Pt now has a BMI of 18 and has severe cachexia and very dehydrated. I reviewed her labs and recommended Dr. Ley reach out to since she doesn't want to go back to [facility] but her esophagus will need to have some sort of corrective surgery. Source: patient Exam Limitations: clinical condition Date Seen 01/09/19 Attending Physician Ronnell Ley MD PCP Kartik Grande DO Referring Physician Date of Admission Home Medications & Allergies Home Medications Reviewed patient Home Medication Reconciliation performed by pharmacy medication reconciliations operations technician and/or nursing. Patients Allergies have been reviewed. 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) Alcohol Use: Denies Use Recreational Drug Use: No Smoking Status: Never a Smoker 2nd Hand Smoke Exposure: No Recent Foreign Travel: No Contact w/other who traveled: No Recent Hopitalizations: Yes Recent Infectious Disease Expo: No Immunizations Up To Date Tetanus Booster (TDap): Unknown Date of Pneumonia Vaccine: Sep 18, 2009 Date of Influenza Vaccine: Nov 15, 2018 Seasonal Allergies Seasonal Allergies: Yes Past Medical History Surgeries: Abdominal, Gallbladder, Hysterectomy Respiratory: Pneumonia Currently Using CPAP: No Currently Using BIPAP: No Cardiac: Hypertension 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: No Sexually Transmitted Disease: No HIV/AIDS: No Female 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 Disorders: Denies Hysterectomy Gastrointestinal: Gastroesophageal Reflux, Hiatal Hernia Loss of Vision: Bilateral Hearing Impairment: Denies History of Blood Disorders: No Adverse Reaction to Blood Amin: No Family History Patient reports no known family medical history. No Pertinent Family Hx Review of Systems Constitutional: see HPI, malaise, weakness EENTM: no symptoms reported Respiratory: no symptoms reported Cardiovascular: no symptoms reported Gastrointestinal: see HPI, abdominal pain, loss of appetite, nausea Genitourinary: no symptoms reported Musculoskeletal: no symptoms reported Skin: no symptoms reported Psychiatric/Neurological: No Symptoms Reported All Other Systems Reviewed Negative Unless Noted: Yes Physical Exam Physical Exam Vital Signs Vital Signs - First Documented 01/08/19 01/08/19 11:33 12:35 Temp 98.5 Pulse 100 Resp 18 B/P (MAP) 143/104 (117) Pulse Ox 97 O2 Delivery Room Air O2 Flow Rate 10 Capillary Refill : Height, Weight, BMI Height: 4'11.00" Weight: 90lbs. 0.0oz. [id number]; 18.2 BMI Method:Stated General Appearance: No Apparent Distress, WD/WN, Chronically ill, Cachetic Eyes: Bilateral Eye Normal Inspection, Bilateral Eye PERRL HEENT: PERRL/EOMI, Normal ENT Inspection, Pharynx Normal Neck: Full Range of Motion, Normal Inspection, Non Tender, Supple, Carotid Bruit Respiratory: Chest Non Tender, Lungs Clear, Normal Breath Sounds, No Accessory Muscle Use, No Respiratory Distress, Decreased Breath Sounds Cardiovascular: Regular Rate, Rhythm, No Edema, No Gallop, No JVD, No Murmur, Normal Peripheral Pulses Gastrointestinal: Normal Bowel Sounds, No Organomegaly, No Pulsatile Mass, Non Tender, Soft Back: Normal Inspection, No CVA Tenderness, No Vertebral Tenderness Extremity: Normal Capillary Refill, Normal Inspection, Normal Range of Motion, Non Tender, No Calf Tenderness, No Pedal Edema Neurologic/Psychiatric: Alert, Oriented x3, No Motor/Sensory Deficits, Depressed Affect Skin: Normal Color, Warm/Dry Lymphatic: No Adenopathy Results Results/Procedures Labs Laboratory Tests 01/08/19 18:45 01/09/19 05:05 Patient resulted labs reviewed. Assessment/Plan Assessment and Plan Assess & Plan/Chief Complaint Assessment: Extreme wasting syndrome due to inability to eat Severe and completely obstructive esophageal stricture unable to pass scope per Dr Ley Previous HH repair x 3 with severe complications Refused PEG multiple times when in IRF on my service (see my DC summary hospital course) HTN Chronic abdominal pain Previous MRSA pneumonia Plan: TPN Pain neds [facility] referral? Diagnosis/Problems Diagnosis/Problems (1) Esophageal stricture Status: Acute (2) Cachexia Status: Acute (3) Dysphagia Status: Acute Qualifiers: Dysphagia type: pharyngoesophageal phase Qualified Codes: R13.14 - Dysphagia, pharyngoesophageal phase (4) Critical illness myopathy Status: Acute (5) Elevated blood pressure reading Status: Chronic (6) Debility Status: Acute (7) GERD (gastroesophageal reflux disease) Status: Chronic Qualifiers: Esophagitis presence: esophagitis presence not specified Qualified Codes: K21.9 - Gastro-esophageal reflux disease without esophagitis (8) Epigastric pain Status: Chronic (9) Anemia Status: Chronic Qualifiers: Anemia type: unspecified type Qualified Codes: D64.9 - Anemia, unspecified (10) Protein-energy malnutrition Status: Acute Qualifiers: Protein-calorie malnutrition severity: severe Qualified Codes: E43 - Unspecified severe protein-calorie malnutrition (11) Leukocytosis Status: Acute Qualifiers: Leukocytosis type: leukemoid reaction Qualified Codes: D72.823 - Leukemoid reaction (12) Hyperglycemia Status: Acute Clinical Quality Measures DVT/VTE Risk/Contraindication: Risk Factor Score Per Nursin RFS Level Per Nursing on Admit: 3=High BISHOP VAN DO Jan 09, 2019 09:34
[2019-01-09] MEDS: MAGNESIUM 1 GM/100 ML IVPB 100 ML IV SCH ×4 (10:04→12:15)
--- NOTE | 2019-01-09 12:24 | Progress Note (SOAP) ---
Subjective Date Seen by a Provider: Jan 09, 2019 Time Seen by a Provider: 09:00 Subjective/Events-last exam doing better today. much less abdominal distention. no fever chills. no no nausea/vomiting/dry heaves. CT with oral contrast consistent with small contained leak from attempted EGD for severe esophageal stricture. Objective Exam Vital Signs Date Time Temp Pulse Resp B/P (MAP) Pulse Ox O2 Delivery O2 Flow Rate FiO2 01/09/19 09:59 93 Nasal Cannula 2.00 01/09/19 08:00 98.0 96 18 153/89 (110) 98 Nasal Cannula 2.00 01/09/19 08:00 97 Nasal Cannula 2.00 01/09/19 07:42 84 01/09/19 04:00 98.5 100 16 133/88 (103) 97 Nasal Cannula 2.00 01/09/19 02:32 96 Nasal Cannula 2.00 01/09/19 00:00 96.8 115 18 159/92 (114) 97 Nasal Cannula 2.00 01/08/19 21:03 103 01/08/19 20:29 100 OxyMask 10.00 01/08/19 20:05 Nasal Cannula 2.00 01/08/19 20:00 97.1 117 16 127/89 (102) 97 Nasal Cannula 2.00 01/08/19 17:35 96.1 01/08/19 17:05 96.1 01/08/19 16:20 97 Simple Mask 10.00 01/08/19 16:20 96.6 122 16 109/79 (89) 99 OxyMask 2.00 01/08/19 15:00 96.1 119 18 109/79 97 Simple Mask 10.00 01/08/19 14:30 96.4 129 18 104/65 98 Room Air 10.00 01/08/19 13:50 144 20 94 OxyMask 10 01/08/19 13:45 142 20 94 OxyMask 10 01/08/19 13:40 140 20 93 OxyMask 10 01/08/19 13:35 144 20 94 OxyMask 10 01/08/19 13:30 146 20 94 OxyMask 10 01/08/19 13:25 155 20 96 OxyMask 10 01/08/19 13:20 140 18 97 OxyMask 10 01/08/19 13:15 138 18 98 OxyMask 10 01/08/19 13:10 140 18 99 OxyMask 10 01/08/19 13:05 140 18 98 OxyMask 10 01/08/19 13:00 130 18 98 OxyMask 10 01/08/19 12:55 116 16 99 OxyMask 10 01/08/19 12:50 148 16 98 OxyMask 10 01/08/19 12:45 100 16 100 OxyMask 10 01/08/19 12:40 100 16 100 OxyMask 10 01/08/19 12:35 111 16 100 OxyMask 10 01/08/19 12:30 103 16 97 Room Air 01/08/19 12:29 103 16 96 Room Air I & O 01/09/19 07:00 Intake Total 2290 ml Balance 2290 ml Capillary Refill : General Appearance: No Apparent Distress HEENT: PERRL/EOMI Neck: Full Range of Motion Respiratory: Chest Non Tender, Lungs Clear, Normal Breath Sounds Cardiovascular: Regular Rate, Rhythm Gastrointestinal: soft, distended, other (no peritoneal signs) Extremity: Normal Capillary Refill Neurologic/Psychiatric: Alert, Oriented x3 Skin: Normal Color Lymphatic: No Adenopathy Results Lab Laboratory Tests 01/08/19 18:45: White Blood Count 26.2H, Red Blood Count 4.92, Hemoglobin 14.2, Hematocrit 44, Mean Corpuscular Volume 90, Mean Corpuscular Hemoglobin 29, Mean Corpuscular Hemoglobin Concent 32, Red Cell Distribution Width 14.9H, Platelet Count 424H, Mean Platelet Volume 9.2, Sodium Level 143, Potassium Level 3.7, Chloride Level 109H, Carbon Dioxide Level 11L, Anion Gap 23H, Blood Urea Nitrogen 12, Creatinine 0.87, Estimat Glomerular Filtration Rate > 60, BUN/Creatinine Ratio 14, Glucose Level 206H, Calcium Level 9.6, Corrected Calcium 10.1, Total Bilirubin 0.4, Aspartate Amino Transf (AST/SGOT) 45H, Alanine Aminotransferase ( ALT/SGPT) 25, Alkaline Phosphatase 153H, Total Protein 7.6, Albumin 3.4 01/09/19 05:05: White Blood Count 18.5H, Red Blood Count 4.46, Hemoglobin 13.0, Hematocrit 39, Mean Corpuscular Volume 88, Mean Corpuscular Hemoglobin 29, Mean Corpuscular Hemoglobin Concent 33, Red Cell Distribution Width 14.8H, Platelet Count 296, Mean Platelet Volume 9.1, Sodium Level 143, Potassium Level 3.7, Chloride Level 109H, Carbon Dioxide Level 15L, Anion Gap 19H, Blood Urea Nitrogen 12, Creatinine 0.75, Estimat Glomerular Filtration Rate > 60, BUN/Creatinine Ratio 16, Glucose Level 174H, Calcium Level 9.0, Corrected Calcium 10.0, Total Bilirubin 0.4, Aspartate Amino Transf (AST/SGOT) 42H, Alanine Aminotransferase ( ALT/SGPT) 27, Alkaline Phosphatase 120, Total Protein 6.5, Albumin 2.8L, Prothrombin Time 14.2, INR Comment 1.1, Phosphorus Level 4.5, Magnesium Level 1.2L, Triglycerides Level 79 Microbiology 01/08/19 Mycobacterial Culture - Final, Complete Assessment/Plan Assessment/Plan Assess & Plan/Chief Complaint severe esophageal stricture s/p HH repair and antireflux procedure x3. attempted EGD with balloon dilatation however unable to cannulate stomach with gastroscope or bronchoscope. small contained microperforation. on abx and antifungal. PICC placed and started on TPN due to malnutrition. will need transferred to for definitive care. Clinical Quality Measures DVT/VTE Risk/Contraindication: Risk Factor Score Per Nursin RFS Level Per Nursing on Admit: 3=High TAI SANCHEZ MD Jan 09, 2019 12:24
--- NOTE | 2019-01-09 14:15 | NUR ---
REPORT CALLED TO LORETTA JEFFERSON FROM [facility] WHO WILL ASSUME CARE OF THIS PATIENT WHEN SHE ARRIVES TO THEIR FACILITY. PATIENT WILL BE GOING TO ROOM HC415 REPORT WAS CALLED TO [phone].
[2019-01-09 16:47] VITALS: BP 153/89
--- NOTE | 2019-01-09 16:55 | NUR ---
patient left floor at this time with [facility] via cart. o2 on at 2 L n/c with TPN hanging on their pump running 40 mls per hour.
[2019-01-09] MEDS ORDERED: [UNRECOGNIZED DRUG - OTHER] IV SCH ×10 (17:00)
[2019-01-09] MEDS ORDERED: SODIUM PHOSPHATE IV SCH ×10 (17:00)
[2019-01-09] MEDS ORDERED: SODIUM ACETATE IV SCH ×10 (17:00)
[2019-01-09] MEDS ORDERED: POTASSIUM CHLORIDE IV SCH ×10 (17:00)
[2019-01-09] MEDS ORDERED: LACTATED RINGERS 1,000 ML IV SCH (17:00)
== END 2019-01-09 16:55 | disposition short-term general hospital (02) | DRG 391 ==
LOC: ENDO 11:08 → 4TH 16:10 → ENDO 16:15
PROVIDERS: ADMIT Surgery; ATTEND Surgery
PROC: 0DB48ZX Excision of Esophagogastric Junction, Via Natural or Artificial Opening Endoscopic, Diagnostic (ICD-10-PCS; principal; 2019-01-08 12:28)
DX: K22.2 Esophageal obstruction (principal); E43 Unspecified severe protein-calorie malnutrition; G72.81 Critical illness myopathy; B37.81 Candidal esophagitis; R64 Cachexia; Z68.1 Body mass index [BMI] 19.9 or less, adult; K91.71 Accidental puncture and laceration of a digestive system organ or structure during a digestive system procedure; E86.0 Dehydration; R13.14 Dysphagia, pharyngoesophageal phase; I10 Essential (primary) hypertension; J45.909 Unspecified asthma, uncomplicated; K21.9 Gastro-esophageal reflux disease without esophagitis; D64.9 Anemia, unspecified; D72.823 Leukemoid reaction; R73.9 Hyperglycemia, unspecified; R53.81 Other malaise
CPT/HCPCS: 36415; 36569; 71045; 71260; 74160; 76937; 80053; 83735; 84100; 84134; 84478; 85027; 85610; 87015; 87101; 87206; 94640

== ENCOUNTER 2019-04-29 10:47 | Observation (INO) | payer BC ==
[~2019-04-29] VITALS: Ht 149.9 cm; Wt 44.9 kg
[~2019-04-29 10:47] MED LIST changes: -HYDR118S10 PO; +HYDR15SO6 PO
[2019-04-29 11:36] LABS: BASOPHILS % (AUTO) 0 % (0-10); EOSINOPHILS # (AUTO) 0.1 10^3/uL (0.0-0.3); EOSINOPHILS % (AUTO) 1 % (0-10); HEMATOCRIT 28 % (35-52); HEMOGLOBIN 8.9 G/DL (11.5-16.0); LYMPHOCYTES # (AUTO) 1.5 X 10^3 (1.0-4.0); LYMPHOCYTES % (AUTO) 13 % (12-44); MEAN CORPUSCULAR HEMOGLOBIN 32 PG (25-34); MEAN CORPUSCULAR HGB CONC 32 G/DL (32-36); MEAN CORPUSCULAR VOLUME 100 FL (80-99); MEAN PLATELET VOLUME 8.2 FL (7.4-10.4); MONOCYTES # (AUTO) 0.5 X 10^3 (0.0-1.0); MONOCYTES % (AUTO) 5 % (0-12); NEUTROPHILS # (AUTO) 9.6 X 10^3 (1.8-7.8); NEUTROPHILS % (AUTO) 81 % (42-75); PLATELET COUNT 467 10^3/uL (130-400); RED CELL DISTRIBUTION WIDTH 13.7 % (10.0-14.5); WHITE BLOOD COUNT 11.8 10^3/uL (4.3-11.0)
[2019-04-29 11:49] LABS: ALANINE AMINOTRANSFERASE 18 U/L (0-55); ALBUMIN 3.6 GM/DL (3.2-4.5); ALKALINE PHOSPHATASE 87 U/L (40-136); BILIRUBIN,TOTAL 0.3 MG/DL (0.1-1.0); BUN/CREATININE RATIO 30; CALCIUM 10.1 MG/DL (8.5-10.1); CARBON DIOXIDE 28 MMOL/L (21-32); CHLORIDE 101 MMOL/L (98-107); CREATININE SERUM 0.66 MG/DL (0.60-1.30); GFR ESTIMATED > 60; GLUCOSE 159 MG/DL (70-105); POTASSIUM 4.2 MMOL/L (3.6-5.0); SODIUM 140 MMOL/L (135-145); TOTAL PROTEIN 7.9 GM/DL (6.4-8.2)
[2019-04-29] MEDS ORDERED: LACTATED RINGERS 1,000 ML IV ONE ×2 (12:33→14:36)
[2019-04-29 12:34] LABS: BILIRUBIN,URINE NEGATIVE (NEGATIVE); CLARITY,URINE CLEAR; COLOR,URINE YELLOW; GLUCOSE, URINE (UA) NEGATIVE (NEGATIVE); KETONES,URINE NEGATIVE (NEGATIVE); LEUKOCYTE ESTERASE ,URINE 3+ (NEGATIVE); NITRITE,URINE NEGATIVE (NEGATIVE); PH,URINE 6 (5-9); PROTEIN,URINE 1+ (NEGATIVE); UROBILINOGEN,URINE NORMAL (NORMAL)
[2019-04-29 12:46] LABS: BACTERIA,URINE MODERATE /HPF; WBC,URINE 25-50 /HPF
[2019-04-29] MEDS ORDERED: fentaNYL INJECTION 100 MCG/2 ML AMP IVP ONE ×2 (13:00→18:45)
--- NOTE | 2019-04-29 13:27 | Diagnostic Imaging Report ---
INDICATION: PEG tube infection. TIME OF EXAM: 12:59 p.m. COMPARISON: Correlation is made with prior study of 01/08/2019. FINDINGS: There appears to be consolidation in fluid in the left lung base. The right lung is clear. No pneumothorax is seen. IMPRESSION: Left lower lobe consolidation and left basilar effusion. Dictated by: Dictated on workstation # [id number]
[2019-04-29] MEDS ORDERED: PIPERACILLIN/TAZOBACTAM (BULK) 4.5 GM in NS (IVPB) 100 ML IV ONE (15:45)
--- NOTE | 2019-04-29 17:15 | Diagnostic Imaging Report ---
PROCEDURE: CT chest, abdomen, and pelvis with contrast. TECHNIQUE: Multiple contiguous axial images were obtained through the chest, abdomen, and pelvis after the administration of intravenous contrast. Auto Exposure Controls were utilized during the CT exam to meet ALARA standards for radiation dose reduction. INDICATION: Infection at drainage site. FINDINGS: Comparison is 01/09/2019. There is a small left pleural effusion. There is overlying atelectasis. Drainage catheter is present in the left chest and terminates in the region of the distal esophagus. The previously seen collection has decreased in size measuring 5.6 x 2.4 cm, previously 6.0 x 2.7 cm. The stomach is also decompressed by a catheter. No new undrained fluid collection is seen. There is mild erosion of the ribs that the thoracic drain goes between, which is likely from a pressure effect, but osteomyelitis could appear similarly if the infection has spread along the drainage tract. A few foci of extrapleural gas are seen in this location as well. Heart size is normal. No pericardial effusion. Aorta is normal in caliber. No axillary or supraclavicular lymphadenopathy. Mildly enlarged mediastinal lymph nodes are likely reactive. Liver is normal. Gallbladder is absent. No biliary ductal dilation. Portal veins are patent. Pancreas, spleen, and adrenal glands are normal. There is new mild left hydroureteronephrosis. No clear obstructing lesion is seen, and the transition occurs in the pelvis. The sigmoid colon is thickwalled with surrounding fat stranding concerning for colitis or diverticulitis. This is likely the cause of the dilated ureter. A percutaneous jejunal tube is present. Abdominal aorta is normal in caliber. There are some reactive retroperitoneal lymph nodes in the pelvis. No free air is seen. There are no suspicious osseous lesions. IMPRESSION: 1. Periosteal reaction about the ribs that the esophageal drainage catheter travels between, which is likely related to pressure effect, less likely osteomyelitis. No new drainable fluid collection is seen, and the esophageal collection has mildly decreased in size. 2. Thick-walled and adjacent stranding about the sigmoid colon in keeping with colitis or diverticulitis. This results in [id number] left-sided hydroureteronephrosis. Dictated by: Dictated on workstation # [id number]
--- NOTE | 2019-04-29 19:23 | ED General ---
General Chief Complaint: General Problems/Pain Stated Complaint: POSS INFECTION Nursing Triage Note: Pt to Rm 9 via w/c with concerns of possible infection from site of thoracostomy drain. Pt is on 6L of O2 upon arrival. Pt is A&O x 4. Nursing Sepsis Screen: No Definite Risk Source of Information: Patient, Old Records Exam Limitations: No Limitations History of Present Illness Date Seen by Provider: Apr 29, 2019 Time Seen by Provider: 11:25 Initial Comments This 58-year-old woman presents to the emergency room as recommended by her hospice nurse with concerns about possible infection at her left chest tube site. She has a complex history that started with a hiatal hernia repair in October. In 2017 she had persistent problems with a large paraesophageal hiatal hernia. She was referred to [facility] for surgery. Postoperatively she developed a pneumothorax and had a chest tube placed at [facility] in [place]. She later developed esophageal stricture and was referred to [facility] by Dr. Ley in December. She developed an esophageal perforation which could not be repaired. She now uses a G-tube for feeding. She has an additional tube near the G-tube the function of which she does not know. This has not been accessed since she returned home from [facility] in February. She identifies the tube from the lef t lateral chest as a "chest tube". This is in place despite resolved pneumothorax. Hospice reports patient is no longer appropriate for hospice as she does not have a terminal illness and her condition has improved beyond expectation. She has no primary care provider. She previously used the [facility] services for healthcare needs. Patient is tachycardic at this time but not febrile. Allergies and Home Medications Allergies Coded Allergies: codeine (Unverified Adverse Reaction, Unknown, 09/03/18) severe stomach pain Home Medications Amlodipine Besylate 5 Mg Tablet, 5 MG PO DAILY Prescribed by: BISHOP VAN on 12/10/18 0863 Budesonide/Formoterol Fumarate 10.2 Gm Hfa.aer.ad, 2 PUFF IH BID, (Reported) Celecoxib 100 Mg Capsule, 100 MG PO BID, (Reported) Gabapentin 100 Mg Capsule, 100 MG PO TID, (Reported) TAKES ALONG WITH 300MG CAPSULE FOR A TOTAL DOSE OF 400MG THREE TIMES DAILY Gabapentin 300 Mg Capsule, 300 MG PO TID, (Reported) TAKES ALONG WITH 100MG CAPSULE FOR A TOTAL DOSE OF 400MG THREE TIMES DAILY Hydrocodone Bit/Acetaminophen 118 Ml Solution, 20 ML PO Q6H PRN for PAIN- MODERATE Prescribed by: BISHOP VAN on 12/10/18 0847 Vitamin B Complex 1 Each Capsule, 1 CAP PO DAILY, (Reported) Patient Home Medication List Home Medication List Reviewed: Yes Review of Systems Review of Systems Constitutional: no symptoms reported EENTM: no symptoms reported Respiratory: no symptoms reported Cardiovascular: no symptoms reported Gastrointestinal: see HPI Genitourinary: no symptoms reported : No Musculoskeletal: back pain Skin: see HPI Psychiatric/Neurological: No Symptoms Reported Hematologic/Lymphatic: No Symptoms Reported Immunological/Allergic: no symptoms reported Past Lapxgdv-Nyzxmg-Zzqspq Hx Past Med/Social Hx: Reviewed and Corrections made Patient Social History Alcohol Use: Denies Use Recreational Drug Use: No Smoking Status: Never a Smoker 2nd Hand Smoke Exposure: No Recent Foreign Travel: No Contact w/Someone Who Travel: No Recent Infectious Disease Expo: No Recent Hopitalizations: Yes Physical Abuse: No Sexual Abuse: No Mistreated: No Fear: No Immunizations Up To Date Tetanus Booster (TDap): Unknown Date of Pneumonia Vaccine: Sep 18, 2009 Date of Influenza Vaccine: Nov 15, 2018 Seasonal Allergies Seasonal Allergies: Yes Past Medical History Surgeries: Yes (HIATAL HERNIA REPAIR, incisional hernia, distal venting e sophagostomy tube, G-tube, J-tube) Abdominal, Gallbladder, Hysterectomy Respiratory: Yes Asthma Currently Using CPAP: No Currently Using BIPAP: No Cardiac: Yes Hypertension Neurological: No 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 Disorders: No Female 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 No Pertinent Family Hx Physical Exam Vital Signs Vital Signs - First Documented 04/29/19 10:52 Temp 99.3 Pulse 114 Resp 20 B/P (MAP) 136/87 (103) Pulse Ox 100 O2 Delivery Nasal Cannula O2 Flow Rate 6.00 Capillary Refill : Less Than 3 Seconds Height, Weight, BMI Height: 4'11.00" Weight: 100lbs. 0.0oz. 45.915213ha; 18.2 BMI Method:Stated General Appearance: No Apparent Distress, WD/WN HEENT: PERRL/EOMI, Normal ENT Inspection Neck: Normal Inspection Respiratory: Lungs Clear, Normal Breath Sounds, No Accessory Muscle Use, No Respiratory Distress Cardiovascular: No Edema, No Murmur, Tachycardia Gastrointestinal: Normal Bowel Sounds, Non Tender, Soft, Other (To abdominal tubes exiting the left upper abdominal wall) Extremity: Normal Inspection, No Pedal Edema Neurologic/Psychiatric: Alert, Oriented x3, No Motor/Sensory Deficits, Normal Mood/Affect, slurry man II-XII Norm as Tested Skin: Warm/Dry, Other (To tubes exiting the left upper abdominal wall and one left lateral chest tube. The tissue around the chest tube is mildly inflamed with some granulation tissue.) Focused Exam Lactate Level 04/29/19 10:58: Lactic Acid Level 1.02 Procedures/Interventions Patient Education: Explained Benefits, Explained Risks, Pt. Ack. Understanding Breath Sounds per Auscultation: Crackles, Wheezes Heart Sounds per Auscultation: Regular Airway Exam: Mouth opens >2 fingers, Neck Full Range of Motion, Visulation of Uvula Sedation Adminstration Time: 1803 Re-examination Time: 1845 Progress/Results/Core Measures Suspected Sepsis Recent Fever Within 48 Hours: No Infection Criteria Present: None New/Unexplained Altered Menta: No Sepsis Screen: No Definite Risk SIRS Temperature:99.3 Pulse: 114 Respiratory Rate: 20 Laboratory Tests 04/29/19 10:58: White Blood Count 11.8H Blood Pressure 136 /87 Mean: 103 04/29/19 10:58: Lactic Acid Level 1.02 Laboratory Tests 04/29/19 10:58: Creatinine 0.66, Platelet Count 467H, Total Bilirubin 0.3 Results/Orders Lab Results Laboratory Tests Test 04/29/19 10:58 04/29/19 12:24 Range/Units White Blood Count 11.8 H 4.3-11.0 10^3/uL Red Blood Count 2.79 L 4.35-5.85 10^6/uL Hemoglobin 8.9 L 11.5-16.0 G/DL Hematocrit 28 L 35-52 % Mean Corpuscular Volume 100 H 80-99 FL Mean Corpuscular Hemoglobin 32 25-34 PG Mean Corpuscular Hemoglobin Concent 32 32-36 G/DL Red Cell Distribution Width 13.7 10.0-14.5 % Platelet Count 467 H 130-400 10^3/uL Mean Platelet Volume 8.2 7.4-10.4 FL Neutrophils (%) (Auto) 81 H 42-75 % Lymphocytes (%) (Auto) 13 12-44 % Monocytes (%) (Auto) 5 0-12 % Eosinophils (%) (Auto) 1 0-10 % Basophils (%) (Auto) 0 0-10 % Neutrophils # (Auto) 9.6 H 1.8-7.8 X 10^3 Lymphocytes # (Auto) 1.5 1.0-4.0 X 10^3 Monocytes # (Auto) 0.5 0.0-1.0 X 10^3 Eosinophils # (Auto) 0.1 0.0-0.3 10^3/uL Basophils # (Auto) 0.0 0.0-0.1 10^3/uL Sodium Level 140 135-145 MMOL/L Potassium Level 4.2 3.6-5.0 MMOL/L Chloride Level 101 98-107 MMOL/L Carbon Dioxide Level 28 21-32 MMOL/L Anion Gap 11 5-14 MMOL/L Blood Urea Nitrogen 20 H 7-18 MG/DL Creatinine 0.66 0.60-1.30 MG/DL Estimat Glomerular Filtration Rate > 60 BUN/Creatinine Ratio 30 Glucose Level 159 H 70-105 MG/DL Lactic Acid Level 1.02 0.50-2.00 MMOL/L Calcium Level 10.1 8.5-10.1 MG/DL Corrected Calcium 10.4 H 8.5-10.1 MG/DL Total Bilirubin 0.3 0.1-1.0 MG/DL Aspartate Amino Transf (AST/SGOT) 14 5-34 U/L Alanine Aminotransferase (ALT/SGPT) 18 0-55 U/L Alkaline Phosphatase 87 40-136 U/L C-Reactive Protein High Sensitivity 6.79 H 0.00-0.50 MG/DL Total Protein 7.9 6.4-8.2 GM/DL Albumin 3.6 3.2-4.5 GM/DL Urine Color YELLOW Urine Clarity CLEAR Urine pH 6 5-9 Urine Specific Cameron 1.015 L 1.016-1.022 Urine Protein 1+ H NEGATIVE Urine Glucose (UA) NEGATIVE NEGATIVE Urine Ketones NEGATIVE NEGATIVE Urine Nitrite NEGATIVE NEGATIVE Urine Bilirubin NEGATIVE NEGATIVE Urine Urobilinogen NORMAL NORMAL MG/DL Urine Leukocyte Esterase 3+ H NEGATIVE Urine RBC (Auto) NEGATIVE NEGATIVE Urine RBC NONE /HPF Urine WBC 25-50 H /HPF Urine Squamous Epithelial Cells 5-10 /HPF Urine Crystals NONE /LPF Urine Bacteria MODERATE H /HPF Urine Casts NONE /LPF Urine Mucus NEGATIVE /LPF Urine Culture Indicated YES My Orders Orders - BRAYDON PEREZ MD Cbc With Automated Diff (04/29/19 11:26) Comprehensive Metabolic Panel (04/29/19 11:26) Hs C Reactive Protein (04/29/19 11:26) Ua Culture If Indicated (04/29/19 11:26) Ed Iv/Invasive Line Start (04/29/19 11:26) Lactated Ringers (Lr 1000 Ml Iv Solution (04/29/19 12:33) Chest Pa/Lat (2 View) (04/29/19 12:34) Urine Culture (04/29/19 12:24) Fentanyl Injection (Sublimaze Injection (04/29/19 13:00) Blood Culture (04/29/19 13:21) Lactic Acid Analyzer (04/29/19 13:21) Lactated Ringers (Lr 1000 Ml Iv Solution (04/29/19 14:36) Body Fluid Culture (04/29/19 15:14) Cytology Requistion | Nursing (04/29/19 15:14) Piperacillin/Tazobactam (Bulk) (Zosyn In (04/29/19 15:45) Ct Chest/Abdomen/Pelvis W (04/29/19 15:45) Wound Culture (04/29/19 15:45) Fentanyl Injection (Sublimaze Injection (04/29/19 18:45) Medications Given in ED Current Medications Medications Dose Ordered Sig/Toni Route Start Time Stop Time Status Last Admin Dose Admin Fentanyl Citrate 50 mcg ONCE ONCE IVP 04/29/19 13:00 04/29/19 13:01 DC 04/29/19 13:15 50 MCG Fentanyl Citrate 50 mcg ONCE ONCE IVP 04/29/19 18:45 04/29/19 18:46 DC 04/29/19 18:45 50 MCG Lactated Ringer's 1,000 ml @ 0 mls/hr Q0M ONCE IV 04/29/19 12:33 04/29/19 12:35 DC 04/29/19 12:36 1,000 MLS/HR Lactated Ringer's 1,000 ml @ 0 mls/hr Q0M ONCE IV 04/29/19 14:36 04/29/19 14:37 DC 04/29/19 14:39 1,000 MLS/HR Piperacillin Sod/ Tazobactam Sod 4.5 gm/Sodium Chloride 120 ml @ 240 mls/hr ONCE ONCE IV 04/29/19 15:45 04/29/19 16:14 DC 04/29/19 17:18 240 MLS/HR Vital Signs/I&O 04/29/19 10:52 Temp 99.3 Pulse 114 Resp 20 B/P (MAP) 136/87 (103) Pulse Ox 100 O2 Delivery Nasal Cannula O2 Flow Rate 6.00 Capillary Refill : Less Than 3 Seconds Blood Pressure Mean: 103 Progress Note : Progress Note Patient's chest tube was initially thought to be a thoracostomy tube. However, through reading her chart and obtaining CT scan it was found that this is actually a distal venting esophagostomy drain. HER two abdominal tubes are a G- tube and a J-tube. It appears from review of her [facility] chart that the J-tube was meant for feeding and the G-tube was meant for venting. They have been using the G-tube for feeds and have not used the J-tube. Patient was tachycardic and heart rate improved with IV hydration. Pain was treated with fentanyl. Urinary tract infection was identified and empiric antibiotic therapy with Zosyn was administered. Case was discussed with Dr. Rouse who recommended empiric therapy with vancomycin and Zosyn for urinary tract infection and possible left chest infection. Dr. Ley was consulted for evaluation of the abdominal tubes to determine if both are necessary are being used appropriately. Patient would like to gradually hospice services and pursue aggressive treatment. Nutritional services will be consulted to help with establishing appropriate feeding and hydration protocols. Social work will be consulted to help with medical coverage and locating primary care services. Diagnostic Imaging Diagonstic Imaging: Xray Plain Films/CT/US/NM/MRI: chest Comments Chest x-ray viewed by me and report reviewed. See report below: NAME: HERBERT XAVIER [facility] REC#: [id number] PT STATUS: REG ER : 1960 PHYSICIAN: BRAYDON PEREZ MD ADMIT DATE: 04/29/19/ER Signed Date of Exam: 04/29/19 CHEST PA/LAT (2 VIEW) INDICATION: PEG tube infection. TIME OF EXAM: 12:59 p.m. COMPARISON: Correlation is made with prior study of 01/08/2019. FINDINGS: There appears to be consolidation in fluid in the left lung base. The right lung is clear. No pneumothorax is seen. IMPRESSION: Left lower lobe consolidation and left basilar effusion. Dictated by: Dictated on workstation # [id number] Dict: 04/29/19 1322 Trans: 04/29/19 1527 Interpreted by: FAIZA KEE MD Electronically signed by: FAIZA KEE MD 04/29/19 1527 Diagonstic Imaging: CT Plain Films/CT/US/NM/MRI: chest, abdomen, pelvis Comments CT chest abdomen and pelvis viewed by me and report reviewed. See report below: NAME: HERBERT XAVIER [facility] REC#: [id number] PT STATUS: REG ER : 1960 PHYSICIAN: BRAYDON PEREZ MD ADMIT DATE: 04/29/19/ER Draft Date of Exam:04/29/19 CT CHEST/ABDOMEN/PELVIS W PROCEDURE: CT chest, abdomen, and pelvis with contrast. TECHNIQUE: Multiple contiguous axial images were obtained through the chest, abdomen, and pelvis after the administration of intravenous contrast. Auto Exposure Controls were utilized during the CT exam to meet ALARA standards for radiation dose reduction. INDICATION: Infection at drainage site. FINDINGS: Comparison is 01/09/2019. There is a small left pleural effusion. There is overlying atelectasis. Drainage catheter is present in the left chest and terminates in the region of the distal esophagus. The previously seen collection has decreased in size measuring 5.6 x 2.4 cm, previously 6.0 x 2.7 cm. The stomach is also decompressed by a catheter. No new undrained fluid collection is seen. There is mild erosion of the ribs that the thoracic drain goes between, which is likely from a pressure effect, but osteomyelitis could appear similarly if the infection has spread along the drainage tract. A few foci of extrapleural gas are seen in this location as well. Heart size is normal. No pericardial effusion. Aorta is normal in caliber. No axillary or supraclavicular lymphadenopathy. Mildly enlarged mediastinal lymph nodes are likely reactive. Liver is normal. Gallbladder is absent. No biliary ductal dilation. Portal veins are patent. Pancreas, spleen, and adrenal glands are normal. There is new mild left hydroureteronephrosis. No clear obstructing lesion is seen, and the transition occurs in the pelvis. The sigmoid colon is thickwalled with surrounding fat stranding concerning for colitis or diverticulitis. This is likely the cause of the dilated ureter. A percutaneous jejunal tube is present. Abdominal aorta is normal in caliber. There are some reactive retroperitoneal lymph nodes in the pelvis. No free air is seen. There are no suspicious osseous lesions. IMPRESSION: 1. Periosteal reaction about the ribs that the esophageal drainage catheter travels between, which is likely related to pressure effect, less likely osteomyelitis. No new drainable fluid collection is seen, and the esophageal collection has mildly decreased in size. 2. Thick-walled and adjacent stranding about the sigmoid colon in keeping with colitis or diverticulitis. This results in [id number] left-sided hydroureteronephrosis. Dictated on workstation # [id number] Dict: 04/29/19 1651 Trans: 04/29/19 1714 [id number] Interpreted by: J CARLOS JOSHI MD Departure Communication (Admissions) Time/Spoke to Admitting Phy: 18:50 Dr. Jf Rouse at 15:[address] Ley at 18:55 Impression Primary Impression: Urinary tract infection Qualified Codes: N39.0 - Urinary tract infection, site not specified Additional Impressions: Chronic pain Qualified Codes: G89.29 - Other chronic pain Anemia Qualified Codes: D64.9 - Anemia, unspecified Leukocytosis Qualified Codes: D72.829 - Elevated white blood cell count, unspecified Disposition: ADMITTED INPATIENT Condition: Improved Admissions Decision to Admit Reason: Admit from ER (General) Decision to Admit/Date: Apr 29, 2019 Time/Decision to Admit Time: 15:35 Departure-Patient Inst. Referrals: DAVID KUMAR DO (PCP/Family) Primary Care Physician BRAYDON PEREZ MD Apr 29, 2019 19:23
[2019-04-29 21:30] VITALS: BP 133/84
[2019-04-29] MEDS ORDERED: ONDANSETRON 4 MG/2 ML (SDV) Z0FRAN IV PRN (22:45)
[2019-04-29] MEDS ORDERED: VANCOMYCIN 1 GM/NS 250 ML IVPB IV SCH ×2 (22:45)
[2019-04-29] MEDS ORDERED: D5 1/2 NS W/KCL 20 MEQ/L 1,000 ML IV SCH (22:45)
[2019-04-29] MEDS: fentaNYL INJECTION 100 MCG/2 ML AMP IV PRN (23:04)
[2019-04-29] MEDS ORDERED: PIPERACILLIN/TAZO 4.5 GM VIAL (ZOSYN) IV ONE (23:26)
[2019-04-29] MEDS: PIPERACILLIN/TAZO 4.5 GM/NS 100 ML IV SCH ×4 (23:51→23:53)
[2019-04-30 00:40] VITALS: BP 115/71
[2019-04-30] MEDS: fentaNYL INJECTION 100 MCG/2 ML AMP IV PRN ×2 (04:37→08:19)
[2019-04-30 04:39] VITALS: BP 116/74
[2019-04-30 05:26] LABS: BASOPHILS % (AUTO) 0 % (0-10); EOSINOPHILS # (AUTO) 0.2 10^3/uL (0.0-0.3); EOSINOPHILS % (AUTO) 2 % (0-10); HEMATOCRIT 23 % (35-52); HEMOGLOBIN 7.2 G/DL (11.5-16.0); LYMPHOCYTES # (AUTO) 2.3 X 10^3 (1.0-4.0); LYMPHOCYTES % (AUTO) 26 % (12-44); MEAN CORPUSCULAR HEMOGLOBIN 31 PG (25-34); MEAN CORPUSCULAR HGB CONC 31 G/DL (32-36); MEAN CORPUSCULAR VOLUME 100 FL (80-99); MONOCYTES # (AUTO) 0.6 X 10^3 (0.0-1.0); MONOCYTES % (AUTO) 7 % (0-12); NEUTROPHILS # (AUTO) 5.5 X 10^3 (1.8-7.8); NEUTROPHILS % (AUTO) 64 % (42-75); PLATELET COUNT 437 10^3/uL (130-400); RED CELL DISTRIBUTION WIDTH 13.7 % (10.0-14.5); WHITE BLOOD COUNT 8.6 10^3/uL (4.3-11.0)
[2019-04-30 05:41] LABS: BUN/CREATININE RATIO 17; CALCIUM 9.5 MG/DL (8.5-10.1); CARBON DIOXIDE 26 MMOL/L (21-32); CHLORIDE 104 MMOL/L (98-107); CREATININE SERUM 0.64 MG/DL (0.60-1.30); GFR ESTIMATED > 60; GLUCOSE 107 MG/DL (70-105); POTASSIUM 3.9 MMOL/L (3.6-5.0); SODIUM 142 MMOL/L (135-145)
[2019-04-30] MEDS ORDERED: PIPERACILLIN/TAZO 4.5 GM VIAL (ZOSYN) IV ONE (06:31)
[2019-04-30] MEDS: PIPERACILLIN/TAZO 4.5 GM/NS 100 ML IV SCH ×4 (06:48→15:00)
[2019-04-30 07:33] VITALS: BP 112/73
[2019-04-30] MEDS ORDERED: HYDR118S10 PEG (10:00)
[2019-04-30] MEDS ORDERED: MELA3TAB PO (10:00)
[2019-04-30] MEDS ORDERED: LORA2ORA SL (10:01)
--- NOTE | 2019-04-30 10:02 | NUR ---
SPOKE WITH THE PATIENT ABOUT HER MEDICATIONS. SHE STATES SHE ONLY IS TAKING THE HYDROCODONE AND LORAZEPAM NEEDED. SHE HAS MELATONIN NEEDED BUT DOES NOT TAKE IT OFTEN. SHE ALSO STATES SHE USES A SYMBICORT INHALER TWICE DAILY. SHE STATES SHE IS NO LONGER USING THE ASPERCREME PATCHES.
[2019-04-30] MEDS ORDERED: HYDROcodone/APAP 7.5MG-325 MG/15 ML (LORTAB) UDC PEG PRN (11:00)
[2019-04-30] MEDS ORDERED: VANCOMYCIN 750 MG/NS 250 ML IVPB IV SCH ×2 (11:00)
--- NOTE | 2019-04-30 11:05 | Short Stay Summary-Hospitalist ---
History of Present Illness HPI/Chief Complaint Pt is a 58yoCF with a PMH of esophageal stricture s/p esophagectomy who presented to the ER from home at the insistence of her chuck splitter. Per patient she states her chuck splitter thought she did not need to be on hospice and told her the only way to get off hospice is to get admitted to the hospital. She denies any complaints or concerns. She denies any abdominal pain, change in bowel habits, fevers, change in drainage from her tubes, or pain. She states that was the only reason for coming to the hospital but that since she's here she would like her "tubes checked," She has an esophageal drain in place as well as a G- tube and J-tube in place. She states these were done at [facility] and then she was discharged there to home hospice. She does not know her hospice diagnosis. She denies any cancer diagnosis or COPD. She has requested to go home. Source: patient Date Seen 04/30/19 Time Seen by a Provider: 10:58 Attending Physician Joseline Rhoades MD PCP Kartik Grande DO Referring Physician Date of Admission Apr 29, 2019 at 6:50 pm Home Medications & Allergies Home Medications Reviewed patient Home Medication Reconciliation performed by pharmacy medication reconciliations wireless field technician and/or nursing. Patients Allergies have been reviewed. Allergies Allergies Coded Allergies codeine (Unverified Adverse Reaction, Unknown, 09/03/18) severe stomach pain Past Trggjue-Lyfnsu-Ojjdzw Hx Past Med/Social Hx: Reviewed Nursing Past Med/Soc Hx, Reviewed and Corrections made Patient Social History Alcohol Use: Denies Use Recreational Drug Use: No Smoking Status: Never a Smoker 2nd Hand Smoke Exposure: No Recent Foreign Travel: No Contact w/other who traveled: No Recent Hopitalizations: Yes Recent Infectious Disease Expo: No Immunizations Up To Date Tetanus Booster (TDap): Unknown Date of Pneumonia Vaccine: Sep 18, 2009 Date of Influenza Vaccine: Nov 15, 2018 Seasonal Allergies Seasonal Allergies: Yes Past Medical History Surgeries: Abdominal, Gallbladder, Hysterectomy esophagectomy Respiratory: Pneumonia Currently Using CPAP: No Currently Using BIPAP: No Cardiac: Hypertension : No 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: No Sexually Transmitted Disease: No HIV/AIDS: No Female 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 Disorders: Denies Hysterectomy Gastrointestinal: Gastroesophageal Reflux, Hiatal Hernia esophageal stricture, g and j tube in place Musculoskeletal: Chronic Back Pain Loss of Vision: Bilateral Hearing Impairment: Denies History of Blood Disorders: No Adverse Reaction to Blood Amin: No Family History Reviewed Nursing Family Hx Hypertension 19 FATHER G8 SISTER No Pertinent Family Hx Review of Systems Constitutional: no symptoms reported EENTM: no symptoms reported Respiratory: no symptoms reported Cardiovascular: no symptoms reported Gastrointestinal: no symptoms reported; No abdominal pain Genitourinary: no symptoms reported; No decreased output, No dysuria, No frequency Musculoskeletal: no symptoms reported Skin: no symptoms reported Psychiatric/Neurological: No Symptoms Reported Physical Exam Physical Exam Vital Signs Vital Signs - First Documented 04/29/19 10:52 Temp 99.3 Pulse 114 Resp 20 B/P (MAP) 136/87 (103) Pulse Ox 100 O2 Delivery Nasal Cannula O2 Flow Rate 6.00 Capillary Refill : Less Than 3 Seconds Height, Weight, BMI Height: 4'11.00" Weight: 98lbs. 14.4oz. 44.114985pw; 20.0 BMI Method:Stated General Appearance: No Apparent Distress, Chronically ill, Thin HEENT: PERRL/EOMI, Normal ENT Inspection Neck: Normal Inspection Respiratory: Lungs Clear, Normal Breath Sounds, No Accessory Muscle Use, No Respiratory Distress Cardiovascular: No Edema, No Murmur, Tachycardia Gastrointestinal: Normal Bowel Sounds, Non Tender, Soft, Other (To abdominal tubes exiting the left upper abdominal wall) Genital/Rectal: Other (adult brief in place) Extremity: Normal Inspection, No Pedal Edema Neurologic/Psychiatric: Alert, Oriented x3, No Motor/Sensory Deficits, Normal Mood/Affect; No Aphasia, No Facial Droop Skin: Warm/Dry, Other (tube draining for chest wall connects to quiroga bag) Results Results/Procedures Labs Laboratory Tests 04/30/19 04:49 Patient resulted labs reviewed. Imaging: Reviewed Imaging Report Short Stay Diagnosis Discharge Diagnosis-Short Stay Admission Diagnosis UTI Final Discharge Diagnosis UTI Conclusion Plan UTI Treated with Vanc and Zosyn Will deescalate to Keflex for discharge S/p Esophagectomy with G/J Tube Nutrition consulted Discussed with Dr Ley who will see patient regarding multiple tubes and follow as an outpatient Discharge planning Social work consulted, appreciate assistance Will DC back to home with hospice who will help her establish care with Dr Mahin Mcnamara Clinical Quality Measures DVT/VTE Risk/Contraindication: Risk Factor Score Per Nursin RFS Level Per Nursing on Admit: 1=Low/No VTE PPX JOSELINE RHOADES MD Apr 30, 2019 11:05
[2019-04-30 11:38] VITALS: BP 130/69
--- NOTE | 2019-04-30 14:12 | NUR ---
RECOMMEND JEVITY 1.5 1 CAN QID TO PROVIDE 1420 KCAL, 60 GRAMS PROTEIN, 720 ML FREE WATER. RECOMMEND FLUSH WITH 30ML BEFORE EACH CAN AND FLUSH WITH 120 ML AFTER EACH CAN TO MEET FLUID NEEDS.
--- NOTE | 2019-04-30 14:15 | Physical Therapy Evaluation ---
PT Evaluation-General Medical Diagnosis Admission Date Apr 29, 2019 at 18:50 Medical Diagnosis: UTI/chronic pain Onset Date: Apr 29, 2019 Therapy Diagnosis Therapy Diagnosis: debility/weakness Height/Weight Height (Feet): 4 Height (Inches): 11.00 Weight (Pounds): 98 Weight (Ounces): 14.4 Precautions Precautions/Isolations: Fall Prevention, Contact/Enteric Isolation Weight Bear Status Right Lower Extremity: Right Weight Bearing/Tolerated Left Lower Extremity: Left Weight Bearing/Tolerated Referral Physician: Jf Reason for Referral: Evaluation/Treatment Medical History Pertinent Medical History: GERD, HTN Additional Medical History currently on hospice at home Current History ER via hospice nurse with left chest tube site possible infection Reviewed History: Yes Social History Home: Apartment Entry Into Home: Level Entry Prior/Core FIM Prior Level of Function Therapy Code Descriptions/Definitions Functional [place] Measure: 0=Not Assessed/NA 4=Minimal Assistance 1=Total Assistance 5=Supervision or Setup 2=Maximal Assistance 6=Modified [place] 3=Moderate Assistance 7=Complete [place] Therapy Quality Codes: 6 Independent with activity with or without an assistive device 5 Patient requires set up or clean up by helper. Patient completes activity by themselves 4 Supervision or touching assist (CGA). [place] provide cues , steadying assi st 3 The helper provides less than half the effort to complete the activity 2 The helper provides more than half the effort to complete the activity 1 Dependent. The helper does all the effort to complete an activity 7 Patient refused to complete or attempt activity 9 The patient did not perform the activity before the current illness or injury 88 Not attempted due to Medical conditions or safety concerns Functional Abilities and Goals: Independent: Patient completed the activities by him/herself, with or without an assistive device, with no assistance from a helper. Needed Some Help: Patient needed partial assistance from another person to complete activities. Dependent: A helper completed the activities for the patient. Unknown: Not Applicable: Bed Mobility: 7 Transfers (B,C,W/C) (FIM): 7 Gait: 6 Indoor Mobility (Ambulation): Independent Prior Devices Use: Walker PT Evaluation-Current Subjective Patient agrees to PT. Pain Numeric Pain Scale: 0-No Pain Location: No Pain Reported Objective Patient Orientation: Normal For Age Problem Solving: Fair Attachments: Chest Tube, Oxygen (4L NC HF), IV ROM/Strength ROM Lower Extremities bilateral LE WFL Strength Lower Extremities 4-/5 grossly bilaterally Integumentary/Posture Integumentary refer to nursing notes Bowel Incontinence: No Bladder Incontinence: No Posture WFL Neuromuscular (Tone, Coordination, Reflexes) grossly intact Sensory Vision: Wears Glasses Hearing: Functional Sensation Right Lower Extremit: Intact Sensation Left Lower Extremity: Intact Transfers Therapy Code Descriptions/Definitions Functional [place] Measure: 0=Not Assessed/NA 4=Minimal Assistance 1=Total Assistance 5=Supervision or Setup 2=Maximal Assistance 6=Modified [place] 3=Moderate Assistance 7=Complete [place] Transfers (B, C, W/C) (FIM): 7 Scootin Rollin Supine to/from Sit: 7 Sit to/from Stand: 7 Gait Mode of Locomotion: Walk Anticipated Mode of Locomotion: Walk Gait (FIM): 6 Distance (FIM): 3=150 ft Distance: 150' Gait Level of Assist: 6 Gait Assistive Device: FWW Comments/Gait Description very slow, gait sequence Balance Sitting Static: Normal Sitting Dynamic: Normal Standing Static: Normal Standing Dynamic: Normal Assessment/Needs 58 y.o. female, will be seen short term by skilled PT to address functional mobility to return to home or care facility safely at maximum LOF. Rehab Potential: Guarded PT Penitentiary Goals Penitentiary Goals PT Penitentiary Goals Time Frame: May 11, 2019 Transfers (B,C,W/C) (FIM): 7 Gait (FIM): 6 Gait distance (FIM): 3=150 ft Distance: 200' Gait Level of Assist: 6 Gait Assistive Device: FWW PT Plan Problem List Problem List: Activity Tolerance, Functional Strength Treatment/Plan Treatment Plan: Continue Plan of Care Treatment Plan: Education, Functional Activity April, Functional Strength, Gait, Safety, Therapeutic Exercise Treatment Duration: May 11, 2019 Frequency: 6 times per week Estimated Hrs Per Day: .25 hour per day Patient and/or Family Agrees t: Yes Safety Risks/Education Patient Education: Safety Issues Teaching Recipient: Patient Teaching Methods: Discussion Response to Teaching: Verbalize Understanding Discharge Recommendations Therapy D/C Recommendations: Home Independently, [facility] Placement Time/GCodes Time In: 1315 Time Out: 1332 Total Billed Treatment Time: 17 Total Billed Treatment 1 visit EVModC 17 min CONNOR HARPER PT Apr 30, 2019 14:15
[2019-04-30] MEDS ORDERED: CEPH-507 PO (14:40)
--- NOTE | 2019-04-30 14:44 | Discharge Inst-Simple/Standard ---
Discharge Inst-Standard Discharge Medications New, Converted or Re-Newed RX: Transmitted to Pharmacy Patient Instructions/Follow Up Plan of Care/Instructions/FU: Please continue to take your medications as written. Please follow up with Activity as Tolerated: Yes Discharge Diet: Other Diet Return to The Hospital For: Shortness of breath, chest pain, fever, confusion, if you feel you are getting worse. MALA BLAS MD Apr 30, 2019 2:44 pm
--- NOTE | 2019-04-30 14:46 | Occupational Therapy Eval ---
OT Evaluation-General/PLF Medical Diagnosis Admission Date Apr 29, 2019 at 18:50 Medical Diagnosis: UTI/chronic pain Onset Date: Apr 29, 2019 Therapy Diagnosis Therapy Diagnosis: Debility Height/Weight Height (Feet): 4 Height (Inches): 11.00 Weight (Pounds): 98 Weight (Ounces): 14.4 Precautions Precautions/Isolations: Fall Prevention, Contact/Enteric Isolation Safety Interventions: Reorient-PRN Referral Physician: Jf Medical History Pertinent Medical History: GERD, HTN Additional Medical History Esophageal stricture s/p esophagectomy, hiatal hernia, chronic back pain Social History Home: Apartment Entry Into Home: Stairs With Railing, Level Entry Steps Into Home: 5 has basement where laundry is located, but states daughter has been doing this for her ADL-Prior Level of Function Therapy Code Descriptions/Definitions Functional [place] Measure: 0=Not Assessed/NA 4=Minimal Assistance 1=Total Assistance 5=Supervision or Setup 2=Maximal Assistance 6=Modified [place] 3=Moderate Assistance 7=Complete [place] Therapy Quality Codes: 6 Independent with activity with or without an assistive device 5 Patient requires set up or clean up by helper. Patient completes activity by themselves 4 Supervision or touching assist (CGA). [place] provide cues , steadying assist 3 The helper provides less than half the effort to complete the activity 2 The helper provides more than half the effort to complete the activity 1 Dependent. The helper does all the effort to complete an activity 7 Patient refused to complete or attempt activity 9 The patient did not perform the activity before the current illness or injury 88 Not attempted due to Medical conditions or safety concerns Functional Abilities and Goals: Independent: Patient completed the activities by him/herself, with or without an assistive device, with no assistance from a helper. Needed Some Help: Patient needed partial assistance from another person to complete activities. Dependent: A helper completed the activities for the patient. Unknown: Not Applicable: ADL PLOF Comments Pt was on hospice prior to admission. States she had very minimal activity, spe nt most of day in the chair. Was getting up to BSC independently, but was not ambulating longer distances. Had bath aid and was being assisted with dressing. Daughter was staying with her. Pt states she does not plan to discharge with hospice. Self Care: Needed Some Help OT Current Status Subjective Pt sitting in chair, agrees to therapy. Reports 8/10 back pain Mental Status/Objective Patient Orientation: Person, Place, Situation Attachments: Oxygen, Other-See Comments (g-tube, j-tube) Current Glasses/Contacts: Yes Hand Dominance: Right Upper Extremity ROM Grossly WFL Upper Extremity Coordination Intact Upper Extremity Sensation Intact per pt report Upper Extremity Strength generalized weakness ADL-Treatment ADL-Current Pt participated in UE assessment while seated. Performed sit to stand without assist. Pt completed grooming tasks while seated. Brushed hair and washed face with setup. Pt sitting in chair with needs met and RN present after session. Therapy Code Descriptions/Definitions Functional [place] Measure: 0=Not Assessed/NA 4=Minimal Assistance 1=Total Assistance 5=Supervision or Setup 2=Maximal Assistance 6=Modified [place] 3=Moderate Assistance 7=Complete [place] Therapy Quality Codes: 6 Independent with activity with or without an assistive device 5 Patient requires set up or clean up by helper. Patient completes activity by themselves 4 Supervision or touching assist (CGA). [place] provide cues , steadying assist 3 The helper provides less than half the effort to complete the activity 2 The helper provides more than half the effort to complete the activity 1 Dependent. The helper does all the effort to complete an activity 7 Patient refused to complete or attempt activity 9 The patient did not perform the activity before the current illness or injury 88 Not attempted due to Medical conditions or safety concerns Grooming (FIM): 5 Education OT Patient Education: Rehab process Teaching Recipient: Patient Teaching Methods: Discussion Response to Teaching: Verbalize Understanding OT Short Term Goals Short Term Goals 1=Demonstrate adherence to instructed precautions during ADL tasks. 2=Patient will verbalize/demonstrate understanding of assistive devices/modifications for ADL. 3=Patient will improve strength/tolerance for activity to enable patient to perform ADL's. OT Correction Goals Correction Goals Time Frame: May 10, 2019 Grooming(FIM): 6 Bathing(FIM): 5 Upper Body Dressing(FIM): 5 Lower Body Dressing(FIM): 5 Toileting(FIM): 6 Toilet/Commode Transfer(FIM): 6 Additional Goals: 2-Verbalize Understanding, 3-ImproveStrength/April 1=Demonstrate adherence to instructed precautions during ADL tasks. 2=Patient will verbalize/demonstrate understanding of assistive devices/modifications for ADL. 3=Patient will improve strength/tolerance for activity to enable patient to perform ADL's. OT Education/Plan Problem List/Assessment Assessment: Decreased Activ Tolerance, Impaired Self-Care Skills Pt to benefit from skilled OT intervention for ADL training, transfers, strengthening, and safety education to increase level of independence and allow safe discharge plan. Discharge Recommendations Plan/Recommendations: Continue POC Treatment Plan/Plan of Care Patient would benefit from OT for education, treatment and training to promote independence in ADL's, mobility, safety and/or upper extremity function for ADL's. Plan of Care: ADL Retraining, Functional Mobility, UE Funct Exercise/Act Treatment Duration: May 10, 2019 Frequency: 5 times per week Estimated Hrs Per Day: .25 hour per day Rehab Potential: Guarded Time/GCodes Start Time: 13:34 Stop Time: 13:47 Total Time Billed (hr/min): 13 Billed Treatment Time 1 visit, ALBER(13minutes) ANURADHA MELENDREZ OT Apr 30, 2019 14:46
--- NOTE | 2019-04-30 15:09 | CONSULTATION REPORT ---
DATE OF SERVICE: 04/30/2019 ADMITTING PHYSICIAN: Dr. Rhoades. HISTORY OF PRESENT ILLNESS: The patient is a 58-year-old female, who we have seen before in the past. She was referred over to us for followup from Dr. Milner, who has since left the area. She initially had repair of a paraesophageal hernia in 2016 and then had reoccurrence one year later and then underwent repair again at that time. She then reports another reoccurrence and then underwent a robotic-assisted repair of the recurrent paraesophageal hernia in [place]. She reports, eight days later, she developed shortness of breath and dysphagia and a CT scan was performed, which showed a left anterior pneumothorax with bilateral atelectasis and subcutaneous emphysema and she was admitted and a left chest tube was placed. She was in the hospital for approximately 2 weeks before being discharged. We had seen her for recurrent dysphagia and she underwent an EGD and was found to have a severe stricture that was impassable through a traditional gastrostomy tube, gastroscope as well as the bronchoscope. There was also a suture identified intraluminally. She was referred to [facility] for further workup and evaluation and it appears that she underwent an esophagectomy; however, due to her pulmonary status, she could not withstand further surgery and gastrointestinal continuity at that time. It sounds as though during that timeframe, an esophagostomy tube was placed and brought out the left chest. It also appears the patient has a gastrostomy tube and a separate jejunostomy tube. Due to her declining condition, she is at home on hospice; however, during the past eight weeks, she has continued to slowly improve. She reports that she is tolerating her tube feeds through her jejunostomy tube. She does have a chronic cough; however, this is not new. She does have a gastrostomy tube, which appears to be patent as well as a functional esophagostomy tube. The objective at this time is to establish primary care physician and further care and to bolster her nutritional status and then at a later time, reevaluation and possible gastrointestinal re-continuity surgery, which would entail either a colonic transposition versus a jejunal free flap. PAST MEDICAL HISTORY: Hypertension, chronic low back pain, asthma and recurrent hiatal hernia. PAST SURGICAL HISTORY: Laparoscopic cholecystectomy, open hysterectomy, hiatal hernia repair x 3, last one in 10/2018, esophagostomy tube placement, gastrostomy tube placement, and jejunostomy tube placement in 12/2018. ALLERGIES: CODEINE. MEDICATIONS: Symbicort 2 puffs b.i.d., gabapentin 100 mg b.i.d. and 300 mg b.i.d., hydrocodone p.r.n., and Zofran p.r.n. SOCIAL HISTORY: Negative smoke, negative alcohol. FAMILY HISTORY: Father with lung cancer, myocardial infarction, sister with myocardial infarction, brother with myocardial infarction and hypertension. REVIEW OF SYSTEMS: This is a thin-appearing female, who is awake and alert. She does have a chronic cough with expectoration of what she feels to be a sinus drainage. She has an esophagostomy tube and does not take anything p.o. She has been tolerating jejunostomy tube feeds at home and is having bowel movements. She is able to ambulate; however, is very weak. No fever or chills. All other review of systems are negative. PHYSICAL EXAMINATION: VITAL SIGNS: Stable. Current weight is approximately 100 pounds, 4 feet 11 inches. CHEST: Scattered rales and rhonchi bilaterally, more on the left side. HEART: Regular and no murmurs. EXTREMITIES: No lower extremity edema, negative Homans sign. HEENT: No scleral icterus. NECK: No cervical lymphadenopathy. ABDOMEN: Soft, nontender and nondistended. She has a left thoracotomy incision with what appears to be a draining esophagostomy tube versus T-tube. She also had a viable gastrostomy and jejunostomy tube. There is no surrounding redness or erythema to indicate any active infections. SKIN: Warm and dry. ASSESSMENT AND PLAN: A 58-year-old female status post esophageal resection, esophagostomy tube placement as well as gastrostomy and jejunojejunostomy tube placement. She was initially placed on hospice at her own wishes; however, she continued to improve over time. Now, she would like to be off of hospice and wants to establish a primary care physician. In her current state, she would like to proceed with further therapy including protein-calorie alimentation as well as strength training with physical therapy. Dietary has been consulted as well as Primary Care and Pulmonology. If she continues to improve and does gain weight and her cardiopulmonary status improves, she may be a candidate for gastrointestinal re-continuity surgery, which would most likely entail colonic transposition versus a free jejunal graft as a conduit. She may follow up in the office with us any time. Job ID: [id number] DocumentID: [id number] Dictated Date: 04/30/2019 12:32:11 Boilermaker Helper Date: 04/30/2019 14:15:18 Dictated By: TAI SANCHEZ MD [facility]
--- NOTE | 2019-04-30 15:29 | NUR ---
CM/SS, respond to consult. HOSPICE: Patient is current with [facility] and returning home on same service. She has hospital bed, FWW, wheelchair, IV pole, continuous O2, bedside commode. PCP: Patient has been going to Urgent Care to Dr. Kartik Grande but he indicated he is no longer willing to serve in a PCP capacity. Katy at [facility] and patient daughter Elizabeth Love are pursuing Dr. Mahin Mcnamara. Clinical information is being sent from hospice to Dr. Mcnamara for his review and final decision. Patient was also offered [facility] but declined. SUMMARY: Patient's daughter Elizabeth resides with her and has since her health declined. Her daughter does not work and stays with patient to provide care. Patient has a PEG and an esophageal drain tube. Patient was employed at [employer], when asked if her job was being held for her she said probably not because she has been gone too long. 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 Susan application provided. Visited with Katy at [facility]. Patient may be signed off services soon but, if planned, hospice understands patient will need a PCP who can order all the necessary DME and supplies for medical maintenance. Agency very cooperative about patient needs and care. Updated patient of her discharge today, she will call her daughter for transportation. Unit RN aware.
[2019-04-30 16:30] VITALS: BP 114/77
[2019-04-30 16:51] VITALS: BP 114/77
[2019-04-30] MEDS ORDERED: RT-ADVAIR HFA 115/21 MCG PER PUFF IH SCH (20:00)
[2019-04-30] MEDS ORDERED: MELATONIN 3 MG TABLET PO PRN (21:00)
[2019-05-01] MEDS ORDERED: TROUGH ORDER-PHARMACY XX NR (10:00)
== END 2019-04-30 15:40 | disposition hospice, home (50) ==
LOC: EDUNIT# 10:47 → ER 10:48 → 4TH 18:50 → UNDOADMOB 18:50 → 4TH 21:30 → UNDODISOB 04-30 16:40
PROVIDERS: ADMIT Family Medicine; ATTEND Family Medicine
DX: N39.0 Urinary tract infection, site not specified (principal); I10 Essential (primary) hypertension; M54.5 Low back pain; J45.909 Unspecified asthma, uncomplicated; K44.9 Diaphragmatic hernia without obstruction or gangrene; Z66 Do not resuscitate; K21.9 Gastro-esophageal reflux disease without esophagitis; G89.29 Other chronic pain; D64.9 Anemia, unspecified; D72.829 Elevated white blood cell count, unspecified; Z88.5 Allergy status to narcotic agent; Z87.01 Personal history of pneumonia (recurrent); Z93.1 Gastrostomy status; Z93.4 Other artificial openings of gastrointestinal tract status; Z79.899 Other long term (current) drug therapy
CPT/HCPCS: 36415; 71046; 71260; 74177; 80048; 80053; 81000; 83605; 85025; 86141; 87040; 87070; 87077; 87088; 87186; 87205; 88112; 88305; 96361; 96365; 96375; 96376; G0378

== ENCOUNTER 2019-11-16 09:09 | Emergency (ER) | payer SELFPAY ==
[~2019-11-16] VITALS: Ht 149 cm; Wt 35.0 kg
[~2019-11-16 09:09] MED LIST changes: +ACHD5005 PO; +CEPH-507 PO; -HYDR-3812 PO; +HYDR118S10 PEG; -IBUP-2055 PO; +IBUP-2473 PO; +LORA2ORA SL; +MELA3TAB65 PO
--- NOTE | 2019-11-16 09:34 | NUR ---
CEMENT WORKER NOTIFIED OF NEEDING A NEW GASTRIC TUBE FOR CLAUS TO PUT IN.
--- NOTE | 2019-11-16 09:37 | ED GI ---
General Chief Complaint: Catheter/Drain/Tube Problems Stated Complaint: DIGESTIVE TUBE FELL OUT Nursing Triage Note: ARRIVED VIA WC TO ROOM 06. PT AND DAUGHTER POOR HISTORIANS. PT STATES ONE OF HER GASTRIC TUBES FELL OUT THIS MORNING. TUBE HAD BEEN PLUGGED OTHER TUBE INTACT. TUBES HAVE BEEN IN FOR ABOUT A YEAR. DAUGHTER STATES HER MOM WAS SENT HOME TO . CURRENTLY BEING TREATED FOR A BACTERIAL INFECTION BY DR RICH WITH AN UNKNOWN ABX. Sepsis Screen: No Definite Risk History of Present Illness Date Seen by Provider: Nov 16, 2019 Time Seen by Provider: 09:25 Initial Comments 59-year-old female brought in due to issues with a PEG tube. Patient has 2 tubes. They report that they have been there for "long time" patient had one of the feeding tube was pulled out accidentally. Visiting with patient and daughter. They report they're not sure whether tube is there. It has been there for a "long time" that they never use it, flush or draining else with it. Patient reports it was put in by [facility] and has been in for at least a year. Patient is also currently being treated for a bacterial infection with an unknown antibiotic that she started yesterday. However they present today just due to having an issue with the tube. Allergies and Home Medications Allergies Coded Allergies: codeine (Unverified Adverse Reaction, Unknown, 09/03/18) severe stomach pain Home Medications Budesonide/Formoterol Fumarate 10.2 Gm Hfa.aer.ad, 2 PUFF IH BID, (Reported) Cephalexin 500 Mg Capsule, 500 MG PO BID Prescribed by: MALA BLAS on 04/30/19 1538 Hydrocodone/Acetaminophen 118 Ml Solution, 20 ML PEG Q6H PRN for PAIN-MODERATE, (Reported) Lorazepam 2 Mg/1 Ml Oral.conc, 0.25-0.5 ML SL Q2H PRN for ANXIETY, (Reported) Melatonin 3 Mg Tablet, 3 MG PO HS PRN for SLEEP, (Reported) Patient Home Medication List Home Medication List Reviewed: Yes Review of Systems Review of Systems Constitutional: no symptoms reported Respiratory: No Symptoms Reported Cardiovascular: No Symptoms Reported Gastrointestinal: See HPI Musculoskeletal: no symptoms reported Skin: see HPI Past Ealhptl-Fzxatj-Holtbd Hx Past Med/Social Hx: Reviewed Nursing Past Med/Soc Hx Patient Social History Alcohol Use: Denies Use Recreational Drug Use: No Smoking Status: Unknown if Ever Smoked 2nd Hand Smoke Exposure: No Recent Foreign Travel: No Contact w/Someone Who Travel: No Recent Infectious Disease Expo: No Recent Hopitalizations: Yes Immunizations Up To Date Tetanus Booster (TDap): Unknown Date of Pneumonia Vaccine: Sep 18, 2009 Date of Influenza Vaccine: Nov 15, 2018 Seasonal Allergies Seasonal Allergies: Yes Past Medical History Surgeries: Yes (GASTRIC) Abdominal, Gallbladder, Hysterectomy Respiratory: Yes Asthma Currently Using CPAP: No Currently Using BIPAP: No Cardiac: Yes Hypertension Neurological: No 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 Disorders: No Female 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 Sexually Transmitted Disease: No HIV/AIDS: No Genitourinary: No Gastrointestinal: Yes (Blind esophagus, G-tube, J-tube) Gastroesophageal Reflux, Hiatal Hernia Musculoskeletal: Yes Chronic Back Pain Endocrine: No HEENT: No Loss of Vision: Bilateral Hearing Impairment: Denies Cancer: No Psychosocial: No Integumentary: No Blood Disorders: No Adverse Reaction/Blood Tranf: No Family Medical History Hypertension 19 FATHER G8 SISTER No Pertinent Family Hx Physical Exam Vital Signs Vital Signs - First Documented 11/16/19 09:15 Temp 36.8 Pulse 143 Resp 20 B/P (MAP) 149/99 (116) Pulse Ox 98 O2 Delivery Room Air Capillary Refill : Less Than 3 Seconds Height/Weight/BMI Height: 4'11.00" Weight: 98lbs. 14.4oz. 44.196280jo; 15.00 BMI Method:Stated General Appearance: cachetic, thin Respiratory: lungs clear, normal breath sounds Cardiovascular: normal peripheral pulses, regular rate, rhythm Gastrointestinal: other (PEG tube in place and abdomen with and stoma present slightly lower where the other PEG tube had been in place.) Procedures/Interventions Patient Education: Explained Benefits, Explained Risks, Pt. Ack. Understanding Breath Sounds per Auscultation: Crackles, Wheezes Heart Sounds per Auscultation: Regular Airway Exam: Mouth opens >2 fingers, Neck Full Range of Motion, Visulation of Uvula Sedation Adminstration Time: 1803 Re-examination Time: 1844 Progress/Results/Core Measures Results/Orders My Orders Orders - JOSE MARIEE DO Consult Physician (11/16/19 10:09) Peg Tube Check (11/16/19 10:06) Diatrizoate Meglum/Sodium 37% (Gastrogra (11/16/19 10:45) Medications Given in ED Current Medications Medications Dose Ordered Sig/Toni Route Start Time Stop Time Status Last Admin Dose Admin Diatrizoate Meglum/ Diatrizoate Sod 120 ml ONCE ONCE NG 11/16/19 10:45 11/16/19 10:46 DC 11/16/19 10:44 30 ML Vital Signs/I&O 11/16/19 09:15 Temp 36.8 Pulse 143 Resp 20 B/P (MAP) 149/99 (116) Pulse Ox 98 O2 Delivery Room Air Blood Pressure Mean: 116 Progress Progress Note : Time: 11:08 Progress Note Patient with both gastrostomy and jejunostomy tube. The jejunostomy tube is what had been removed. Dr. León was consulted and replaced the tube. It Peg study was then performed that showed proper placement of the tube. Patient was highly recommend a follow-up with her surgeon to place a tube at . Patient is stable will be discharged home Diagnostic Imaging Diagonstic Imaging: Xray Plain Films/CT/US/NM/MRI: abdomen Comments NAME: HERBERT XAVIER [facility] REC#: [id number] PT STATUS: REG ER : 1960 PHYSICIAN: JOSE MARIEE DO ADMIT DATE: 11/16/19/ER Signed Date of Exam:11/16/19 PEG TUBE CHECK Exam: Abdominal radiographs, 3 images. Date: November 16, 2019. Indication: 59-year-old female, evaluation of tube placement. Findings: Contrast was administered through the existing jejunostomy tube. There is contrast opacification of small bowel. There is no abnormally extravasated contrast. There is also a gastrostomy tube noted projecting over the expected location of the stomach. Impression: 1. The jejunostomy tube is within small bowel and there is no evidence of leak. 2. Contrast was not administered through the existing gastrostomy tube which projects over the expected location of the stomach. Dictated by: Departure Impression Primary Impression: Dislodged jejunostomy tube Disposition: 01 HOME, SELF-CARE Condition: Stable Departure-Patient Inst. Referrals: CHIQUITA RICH MD (PCP/Family) Primary Care Physician Patient Instructions: How to Care for Your PEG Tube Add. Discharge Instructions: Follow-up with the surgeon in team placed your feeding tubes Emergency department focuses on treating and ruling out life-threatening di seases. Whenever possible, a diagnosis is given. However, most patients are given an impression based on their history, physical exam, and workup during your brief time in the ER. Information about probable diagnosis and other educational material has been provided. Please take the time to read and understand this information. It is very important that you follow up with a physician as discussed during the visit today. Failure to adhere to your follow-up instructions may lead to severe disability, injury, or so please make sure to keep your appointments or obtain one as requested. Please keep in mind the emergency department is not designed to your primary care or "family doctor" and nonurgent issues are best evaluated by an outpatient physician All discharge instructions reviewed with patient and/or family. Voiced understanding. JOSE MARIEE DO Nov 16, 2019 09:37
--- NOTE | 2019-11-16 09:51 | NUR ---
DR DEVLIN IN ROOM AT THIS TIME.
--- NOTE | 2019-11-16 10:24 | Consultation - Surgery ---
CHANTALBENJA FITCH [facility] [place] 11/16/19 1024: History of Present Illness History of Present Illness Patient Consulted On(marbella/time) 11/16/19 10:16 Date Seen by Provider: Nov 16, 2019 Time Seen by Provider: 09:50 Reason for Visit: Inadvertent gastrostomy tube removal History of Present Illness Eloise is a 59 y/o female that presented with inadvertent gastrotomy tube remova l that is most likely jejunal in origin. The patient states the tube came out this morning and denies any pain associated with it. She states she has had the tubes for a long time and is unsure of why she has them. Patient has pertinent surgical history for hiatal hernia repair, and for esophageal perforation. Dr. Devlin was consulted for G-tube replacement. Allergies and Home Medications Allergies Coded Allergies: codeine (Unverified Adverse Reaction, Unknown, 09/03/18) severe stomach pain Home Medications Budesonide/Formoterol Fumarate 10.2 Gm Hfa.aer.ad, 2 PUFF IH BID, (Reported) Cephalexin 500 Mg Capsule, 500 MG PO BID Prescribed by: MALA BLAS on 04/30/19 1538 Hydrocodone/Acetaminophen 118 Ml Solution, 20 ML PEG Q6H PRN for PAIN-MODERATE, (Reported) Lorazepam 2 Mg/1 Ml Oral.conc, 0.25-0.5 ML SL Q2H PRN for ANXIETY, (Reported) Melatonin 3 Mg Tablet, 3 MG PO HS PRN for SLEEP, (Reported) Past Uficeaz-Xhsqkj-Kaentg Hx Patient Social History Alcohol Use: Denies Use Recreational Drug Use: No Smoking Status: Unknown if Ever Smoked 2nd Hand Smoke Exposure: No Recent Foreign Travel: No Contact w/Someone Who Travel: No Recent Infectious Disease Expo: No Recent Hopitalizations: Yes Immunizations Up To Date Tetanus Booster (TDap): Unknown Date of Pneumonia Vaccine: Sep 18, 2009 Date of Influenza Vaccine: Nov 15, 2018 Seasonal Allergies Seasonal Allergies: Yes Surgeries History of Surgeries: Yes (GASTRIC) Surgeries: Abdominal, Gallbladder, Hysterectomy Respiratory History of Respiratory Disorde: Yes Respiratory Disorders: Asthma Cardiovascular History of Cardiac Disorders: Yes Cardiac Disorders: Hypertension Neurological History of Neurological Disord: No 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 System Hx 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 Disorders: No Sexually Transmitted Disease: No HIV/AIDS: No 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 Genitourinary History of Genitourinary Disor: No Gastrointestinal History of Gastrointestinal Di: Yes (Blind esophagus, G-tube, J-tube) Gastrointestinal Disorders: Gastroesophageal Reflux, Hiatal Hernia Musculoskeletal History of Musculoskeletal Dis: Yes Musculoskeletal Disorders: Chronic Back Pain Endocrine History of Endocrine Disorders: No HEENT History of HEENT Disorders: No Loss of Vision: Bilateral Hearing Impairment: Denies Cancer History of Cancer: No Psychosocial History of Psychiatric Problem: No Integumentary History of Skin or Integumenta: No Blood Transfusions History of Blood Disorders: No Adverse Reaction to a Blood Tr: No Family Medical History Significant Family History: No Pertinent Family Hx Family Medial History: Hypertension 19 FATHER G8 SISTER Review of Systems-General Constitutional: no symptoms reported EENTM: no symptoms reported Respiratory: no symptoms reported Cardiovascular: no symptoms reported Gastrointestinal: No abdominal pain, No hematemesis, No melena, No nausea, No vomiting Genitourinary: no symptoms reported Musculoskeletal: no symptoms reported Skin: no symptoms reported Psychiatric/Neurological: No Symptoms Reported Physical Exam-General Problems Physical Exam Vital Signs Vital Signs - First Documented 11/16/19 09:15 Temp 36.8 Pulse 143 Resp 20 B/P (MAP) 149/99 (116) Pulse Ox 98 O2 Delivery Room Air Capillary Refill : Less Than 3 Seconds General Appearance: WD/WN, no apparent distress Neck: non-tender, full range of motion Respiratory: chest non-tender, normal breath sounds, no respiratory distress Cardiovascular: normal peripheral pulses, no edema Gastrointestinal: non tender, soft, no organomegaly, no pulsatile mass; No distended, No guarding Neurologic/Psychiatric: alert, normal mood/affect, oriented x 3 Skin: normal color, warm/dry Lymphatic: no adenopathy Assessment/Plan Assessment/Plan Admission Diagonsis Inadvertent Gastrotomy Tube Removal Assessment/Plan Inadvertent Gastrotomy Tube Removal - replaced g-tube that is most likely jejunal in origin with an 18F G-tube. Will follow up with [facility] with Gastrografin. Thank you for the consult call if you have any questions. OMAR DEVLIN DO 11/16/19 1105: History of Present Illness History of Present Illness History of Present Illness Consult requested by Dr. Villa for pulled feeding tube. Seen and evaluated in ED. Patient is a 59 year old female that pulled a feeding tube earlier this morning. She and her family never use the tube and are not sure why she has it. Patient has history of hiatal hernia repair and ended up with a pneumothorax and esophageal perforation which she states was about a year ago. She was transferred to where she was sent home on hospice. Patient and family state they really don't have any problem with the tube, it does usually leak around it. Denies n/v fever sweats chills shortness of breath or chest pain. Allergies and Home Medications Allergies Coded Allergies: codeine (Unverified Adverse Reaction, Unknown, 09/03/18) severe stomach pain Home Medications Budesonide/Formoterol Fumarate 10.2 Gm Hfa.aer.ad, 2 PUFF IH BID, (Reported) Cephalexin 500 Mg Capsule, 500 MG PO BID Prescribed by: MALA BLAS on 04/30/19 1538 Hydrocodone/Acetaminophen 118 Ml Solution, 20 ML PEG Q6H PRN for PAIN-MODERATE, (Reported) Lorazepam 2 Mg/1 Ml Oral.conc, 0.25-0.5 ML SL Q2H PRN for ANXIETY, (Reported) Melatonin 3 Mg Tablet, 3 MG PO HS PRN for SLEEP, (Reported) Patient Home Medication List Home Medication List Reviewed: Yes Past Eoreikf-Hkconi-Royjdf Hx Reviewed Nursing Assessment Reviewed/Agree w Nursing PMH: Yes Family Medical History Significant Family History: No Pertinent Family Hx Family Medial History: Hypertension 19 FATHER G8 SISTER Review of Systems-General Constitutional: No chills, No diaphoresis EENTM: No hearing loss, No ear pain, No blurred vision, No double vision Respiratory: No cough, No dyspnea on exertion, No short of breath Cardiovascular: No chest pain, No edema Gastrointestinal: No abdominal pain, No hematemesis, No melena, No nausea, No vomiting Genitourinary: no symptoms reported; No decreased output, No discharge Musculoskeletal: No gout, No joint pain Skin: No change in color, No change in hair/nails Psychiatric/Neurological: Denies Anxiety, Denies Depressed, Denies Emotional Problems Physical Exam-General Problems Physical Exam General Appearance: no apparent distress, thin HEENT: PERRL/EOMI, normal ENT inspection, pharynx normal Neck: non-tender, full range of motion Respiratory: chest non-tender, normal breath sounds, no respiratory distress, no accessory muscle use Cardiovascular: normal peripheral pulses, regular rate, rhythm, other (tube from left chest) Gastrointestinal: non tender, soft, no organomegaly, no pulsatile mass, other (a gastrstomy tube in left upper quadrant, there is a skin opening just below it with succus draining) Rectal: deferred Back: no CVA tenderness Extremities: non-tender, normal inspection Neurologic/Psychiatric: alert, normal mood/affect, oriented x 3 Skin: normal color, warm/dry Lymphatic: no adenopathy Assessment/Plan Assessment/Plan Assessment/Plan Inadvertent jejunostomy tube removal history of hiatal hernia with esophageal perforation Patient and family discussed reasoning to replace the tube since just pulled and they understands. Through the established tract a 18 fr gastrostomy tube was able to be placed without difficulty and the balloon was inflated with 10 mL of saline. Patient tolerated well. Will get Gastrograffin [facility] through the new tube to assure good placement and to verify it is a Jejunostomy tube. All questions asked from family were answered to their satisfaction. Supervisory-Addendum Brief Verification & Attestation Participated in pt care: history, MDM, physical Personally performed: exam, history, MDM, supervision of care Care discussed with: Medical Student Procedures: n/a Results interpretation: Verified all documentation Verification and Attestation of Medical Student E/M Service A medical student performed and documented this service in my presence. I reviewed and verified all information documented by the medical student and made modifications to such information, when appropriate. I personally performed the physical exam and medical decision making. Omar Devlin, Nov 16, 2019,11:14 BENJA CORNEJO [facility] [place] Nov 16, 2019 10:24 OMAR DEVLIN DO Nov 16, 2019 11:05
[2019-11-16] MEDS ORDERED: DIATRIZOATE MEGLUM/SODIUM 37% 120 ML (GASTROGRAFIN) NG ONE (10:45)
--- NOTE | 2019-11-16 10:59 | Diagnostic Imaging Report ---
Exam: Abdominal radiographs, 3 images. Date: November 16, 2019. Indication: 59-year-old female, evaluation of tube placement. Findings: Contrast was administered through the existing jejunostomy tube. There is contrast opacification of small bowel. There is no abnormally extravasated contrast. There is also a gastrostomy tube noted projecting over the expected location of the stomach. Impression: 1. The jejunostomy tube is within small bowel and there is no evidence of leak. 2. Contrast was not administered through the existing gastrostomy tube which projects over the expected location of the stomach. Dictated by: Dictated on workstation # [id number]
[2019-11-16 11:52] VITALS: BP 149/99
== END 2019-11-16 11:52 | disposition home or self-care (01) ==
LOC: EDUNIT# 09:09 → ER 09:11
DX: Z43.1 Encounter for attention to gastrostomy (principal); J45.909 Unspecified asthma, uncomplicated; Z88.5 Allergy status to narcotic agent; Z82.49 Family history of ischemic heart disease and other diseases of the circulatory system
CPT/HCPCS: 43762; 49465

== ENCOUNTER 2019-11-19 11:16 | Emergency (ER) | payer OTHER ==
[~2019-11-19] VITALS: Ht 150 cm; Wt 35.0 kg
--- NOTE | 2019-11-19 11:50 | NUR ---
J TUBE WAS TIGHTENED UP BY CARITO BACON AND WATER WAS ADDED WITHOUT LEAKAGE. CARITO EDUCATED DAUGHTER ON HOW TO DO THIS IF IT LEAKS AGAIN.
--- NOTE | 2019-11-19 11:52 | ED GI ---
General Chief Complaint: Catheter/Drain/Tube Problems Stated Complaint: FEEDING TUBE ISSUES Nursing Triage Note: PT'S DAUGHTER STATES PT WAS IN THIS ER LAST MONDAY AND HAD FEEDING TUBE CHANGED OUT DUE TO OLD ONE FALLING OUT. CC TODAY IS LEAKAGE AROUND THE TUBE. Sepsis Screen: No Definite Risk Source of Information: Patient Exam Limitations: No Limitations History of Present Illness Date Seen by Provider: Nov 19, 2019 Time Seen by Provider: 11:48 Initial Comments To ER with around the jejunostomy tube. She has a gastric tube as well as a j ejunostomy tube, daughter states any time that she gives a feeding through the gastric tube some of it leaks around the jejunostomy tube. This did fall out a few days ago, was replaced with the same size 18 Faroese jejunostomy tube. Timing/Duration: 1-2 Days Severity/Quality: Moderate Activities at Onset: None Associated Symptoms: Denies Symptoms Allergies and Home Medications Allergies Coded Allergies: codeine (Unverified Adverse Reaction, Unknown, 09/03/18) severe stomach pain Home Medications Budesonide/Formoterol Fumarate 10.2 Gm Hfa.aer.ad, 2 PUFF IH BID, (Reported) Cephalexin 500 Mg Capsule, 500 MG PO BID Prescribed by: MALA BLAS on 04/30/19 1538 Hydrocodone/Acetaminophen 118 Ml Solution, 20 ML PEG Q6H PRN for PAIN-MODERATE, (Reported) Lorazepam 2 Mg/1 Ml Oral.conc, 0.25-0.5 ML SL Q2H PRN for ANXIETY, (Reported) Melatonin 3 Mg Tablet, 3 MG PO HS PRN for SLEEP, (Reported) Patient Home Medication List Home Medication List Reviewed: Yes Review of Systems Review of Systems Constitutional: see HPI EENTM: No Symptoms Reported Respiratory: No Symptoms Reported Cardiovascular: No Symptoms Reported Gastrointestinal: See HPI Genitourinary: No Symptoms Reported Musculoskeletal: no symptoms reported Skin: no symptoms reported Psychiatric/Neurological: No Symptoms Reported Endocrine: No Symptoms Reported Hematologic/Lymphatic: No Symptoms Reported Past Hzoxluo-Mreopk-Lmrjmw Hx Patient Social History Alcohol Use: Denies Use Recreational Drug Use: No Smoking Status: Never a Smoker 2nd Hand Smoke Exposure: No Recent Foreign Travel: No Contact w/Someone Who Travel: No Recent Infectious Disease Expo: No Recent Hopitalizations: Yes Physical Abuse: No Sexual Abuse: No Mistreated: No Fear: No Immunizations Up To Date Tetanus Booster (TDap): Unknown Date of Pneumonia Vaccine: Sep 18, 2009 Date of Influenza Vaccine: Nov 15, 2018 Seasonal Allergies Seasonal Allergies: Yes Past Medical History Surgeries: Yes (GASTRIC) Abdominal, Gallbladder, Hysterectomy Respiratory: Yes Asthma Currently Using CPAP: No Currently Using BIPAP: No Cardiac: Yes Hypertension Neurological: No 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 Disorders: No 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 Sexually Transmitted Disease: No HIV/AIDS: No Genitourinary: No Gastrointestinal: Yes (Blind esophagus, G-tube, J-tube) Gastroesophageal Reflux, Hiatal Hernia Musculoskeletal: Yes Chronic Back Pain Endocrine: No HEENT: No Loss of Vision: Bilateral Hearing Impairment: Denies Cancer: No Psychosocial: No Integumentary: No Blood Disorders: No Adverse Reaction/Blood Tranf: No Family Medical History Hypertension 19 FATHER G8 SISTER No Pertinent Family Hx Physical Exam Vital Signs Vital Signs - First Documented 11/19/19 11:29 Temp 36.8 Pulse 106 Resp 18 B/P (MAP) 116/88 (97) Pulse Ox 94 O2 Delivery Room Air Capillary Refill : Less Than 3 Seconds Height/Weight/BMI Height: 4'11.00" Weight: 98lbs. 14.4oz. 44.715946lm; 15.00 BMI Method:Stated General Appearance: WD/WN, no apparent distress Respiratory: no respiratory distress, no accessory muscle use Gastrointestinal: normal bowel sounds, soft, tenderness (there is erythema around the jejunostomy tube with maceration of the skin from the leakage. The balloon on the back side was pulled up a bit tighter against the back wall of the abdomen and the stopper was put flush against the anterior wall of the abdomen, I then gave her 60 cc of tap water through the gastric tube without any leakage from the jejunostomy tube.) Neurologic/Psychiatric: alert, normal mood/affect, oriented x 3 Skin: normal color, warm/dry Procedures/Interventions Patient Education: Explained Benefits, Explained Risks, Pt. Ack. Understanding Breath Sounds per Auscultation: Crackles, Wheezes Heart Sounds per Auscultation: Regular Airway Exam: Mouth opens >2 fingers, Neck Full Range of Motion, Visulation of Uvula Sedation Adminstration Time: 1803 Re-examination Time: 1845 Progress/Results/Core Measures Results/Orders Vital Signs/I&O 11/19/19 11:29 Temp 36.8 Pulse 106 Resp 18 B/P (MAP) 116/88 (97) Pulse Ox 94 O2 Delivery Room Air Blood Pressure Mean: 97 Departure Impression Primary Impression: Jejunostomy tube leak Disposition: 01 HOME, SELF-CARE Condition: Stable Departure-Patient Inst. Decision time for Depature: 11:51 Referrals: CHIQUITA RICH MD (PCP/Family) Primary Care Physician Patient Instructions: NO INSTRUCTIONS GIVEN Add. Discharge Instructions: 1. Return to ER for any concerns 2. Follow-up with your doctor next week All discharge instructions reviewed with patient and/or family. Voiced understanding. CARITO BACON FABRICATOR FOAM RUBBER Nov 19, 2019 11:52
[2019-11-19 11:56] VITALS: BP 116/88
== END 2019-11-19 11:56 | disposition home or self-care (01) ==
LOC: EDUNIT# 11:16 → ER 11:17
DX: K94.23 Gastrostomy malfunction (principal); J45.909 Unspecified asthma, uncomplicated; Z88.5 Allergy status to narcotic agent; Z82.49 Family history of ischemic heart disease and other diseases of the circulatory system
CPT/HCPCS: 99281

== ENCOUNTER 2019-11-20 19:12 | Inpatient (IN) | payer OTHER ==
[~2019-11-20] VITALS: Ht 139.7 cm; Wt 36.0 kg
[2019-11-20] MEDS ORDERED: ONDANSETRON 4 MG/2 ML (SDV) Z0FRAN ONE ×2 (20:24→23:18)
[2019-11-20] MEDS ORDERED: LACTATED RINGERS 1,000 ML IV ONE (20:34)
[2019-11-20 20:43] LABS: BASOPHILS % (AUTO) 0 % (0-10); EOSINOPHILS # (AUTO) 0.2 10^3/uL (0.0-0.3); EOSINOPHILS % (AUTO) 2 % (0-10); HEMATOCRIT 48 % (35-52); HEMOGLOBIN 16.4 G/DL (11.5-16.0); LYMPHOCYTES # (AUTO) 3.3 X 10^3 (1.0-4.0); LYMPHOCYTES % (AUTO) 27 % (12-44); MEAN CORPUSCULAR HEMOGLOBIN 31 PG (25-34); MEAN CORPUSCULAR HGB CONC 34 G/DL (32-36); MEAN CORPUSCULAR VOLUME 91 FL (80-99); MEAN PLATELET VOLUME 9.5 FL (7.4-10.4); MONOCYTES # (AUTO) 0.7 X 10^3 (0.0-1.0); MONOCYTES % (AUTO) 6 % (0-12); NEUTROPHILS # (AUTO) 7.9 X 10^3 (1.8-7.8); NEUTROPHILS % (AUTO) 65 % (42-75); PLATELET COUNT 460 10^3/uL (130-400); RED CELL DISTRIBUTION WIDTH 12.1 % (10.0-14.5); WHITE BLOOD COUNT 12.2 10^3/uL (4.3-11.0)
--- NOTE | 2019-11-20 20:44 | ED GI ---
General Chief Complaint: Catheter/Drain/Tube Problems Stated Complaint: G TUBE COMPLICATION Nursing Triage Note: GIVING FEEDINGS THROUGH TUBE AND PATIENT CANNOT KEEP IT DOWN, KEEPS SPITTING UP. WORRIED ABOUT DEHYDRATION. Sepsis Screen: No Definite Risk Source of Information: Patient Exam Limitations: No Limitations History of Present Illness Date Seen by Provider: Nov 20, 2019 Time Seen by Provider: 20:20 Initial Comments The patient resents to ER by private conveyance from home with family with chief complaints the third visit to the ER in the last week. She's been having increasing drainage around her second G-tube site. Historically she had a surgery for hiatal hernia that had about out, ended up with the esophageal perforation and pneumothorax. She was sent to where they repaired it put into NG tube and they have been feeding her in the gastric tube and not doing anything with the tube that is in her small intestine. Today the daughter who is taking care of it says that she has been changing the dressing every hour or more frequently for thin green secretions. She has not had a bowel movement for several days which is unusual. She's having increasing pain, 8 out of 10. She typically takes about 7.5 mg of liquid hydrocodone for pain but this has not helped as much today. She's having nausea and spitting things up and not able to keep anything down. She's afraid she is becoming dehydrated. No fevers or sick contacts. She does have a dry, nonproductive cough. Historically she's had her gallbladder out, hysterectomy, tubal ligation, 3 surgeries for her stomach. The last 2 times she had presented to the ER were because the G-tube had become displaced. It was replaced and confirmed placement with Gastrografin contrast plain films. Allergies and Home Medications Allergies Coded Allergies: codeine (Unverified Adverse Reaction, Unknown, 09/03/18) severe stomach pain Home Medications Budesonide/Formoterol Fumarate 10.2 Gm Hfa.aer.ad, 2 PUFF IH BID, (Reported) Cephalexin 500 Mg Capsule, 500 MG PO BID Prescribed by: MALA BLAS on 04/30/19 1538 Hydrocodone/Acetaminophen 118 Ml Solution, 20 ML PEG Q6H PRN for PAIN-MODERATE, (Reported) Lorazepam 2 Mg/1 Ml Oral.conc, 0.25-0.5 ML SL Q2H PRN for ANXIETY, (Reported) Melatonin 3 Mg Tablet, 3 MG PO HS PRN for SLEEP, (Reported) Patient Home Medication List Home Medication List Reviewed: Yes Review of Systems Review of Systems Constitutional: No chills, No diaphoresis EENTM: No Blurred Vision, No Double Vision Respiratory: Cough; Denies Shortness of Air Cardiovascular: Denies Chest Pain, Denies Edema Gastrointestinal: See HPI; Denies Abdomen Distended; Abdominal Pain, Constipated; Denies Diarrhea; Nausea, Poor Fluid Intake, Vomiting Genitourinary: Denies Burning, Denies Discharge Musculoskeletal: No back pain, No joint pain Psychiatric/Neurological: Denies Anxiety, Denies Depressed All Other Systems Reviewed Negative Unless Noted: Yes Past Dtftzgg-Deusna-Rqpxyt Hx Patient Social History Alcohol Use: Denies Use Recreational Drug Use: No 2nd Hand Smoke Exposure: No Recent Foreign Travel: No Contact w/Someone Who Travel: No Recent Infectious Disease Expo: No Recent Hopitalizations: No Immunizations Up To Date Tetanus Booster (TDap): Unknown Date of Pneumonia Vaccine: Sep 18, 2009 Date of Influenza Vaccine: Nov 15, 2018 Seasonal Allergies Seasonal Allergies: Yes Past Medical History Surgeries: Yes (GASTRIC) Abdominal, Gallbladder, Hysterectomy Respiratory: Yes Asthma Currently Using CPAP: No Currently Using BIPAP: No Cardiac: Yes Hypertension Neurological: No : No 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 Disorders: No Female 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 Disorders: Denies SHIRT PRESSER History: Hysterectomy Sexually Transmitted Disease: No HIV/AIDS: No Genitourinary: No Gastrointestinal: Yes (Blind esophagus, G-tube, J-tube) Gastroesophageal Reflux, Hiatal Hernia Musculoskeletal: Yes Chronic Back Pain Endocrine: No HEENT: No Loss of Vision: Bilateral Hearing Impairment: Denies Cancer: No Psychosocial: No Integumentary: No Blood Disorders: No Adverse Reaction/Blood Tranf: No Family Medical History Hypertension 19 FATHER G8 SISTER No Pertinent Family Hx Physical Exam Vital Signs Vital Signs - First Documented 11/20/19 19:49 Temp 37.2 Pulse 124 Resp 20 B/P (MAP) 126/91 (103) Pulse Ox 96 Capillary Refill : Less Than 3 Seconds Height/Weight/BMI Height: 4'11.00" Weight: 98lbs. 14.4oz. [id number]; 15.00 BMI Method:Stated General Appearance: cachetic HEENT: normal ENT inspection, pharynx normal Neck: full range of motion, supple, normal inspection Respiratory: lungs clear, normal breath sounds, no respiratory distress, no accessory muscle use Cardiovascular: normal peripheral pulses, regular rate, rhythm, tachycardia (1:15) Peripheral Pulses: 2+ Radial Pulses (R), 2+ Radial Pulses (L) Gastrointestinal: normal bowel sounds, soft; No rebound (all 4 quadrants); tenderness, other (Gastric tube and a second gastric tube presumably in the ileum) Extremities: normal range of motion, non-tender, normal inspection Neurologic/Psychiatric: alert, normal mood/affect, oriented x 3 Skin: normal color, warm/dry Procedures/Interventions Patient Education: Explained Benefits, Explained Risks, Pt. Ack. Understanding Breath Sounds per Auscultation: Crackles, Wheezes Heart Sounds per Auscultation: Regular Airway Exam: Mouth opens >2 fingers, Neck Full Range of Motion, Visulation of Uvula Sedation Adminstration Time: 1803 Re-examination Time: 1845 Progress/Results/Core Measures Results/Orders Lab Results Laboratory Tests Test 11/20/19 20:23 11/20/19 20:54 Range/Units White Blood Count 12.2 H 4.3-11.0 10^3/uL Red Blood Count 5.32 4.35-5.85 10^6/uL Hemoglobin 16.4 H 11.5-16.0 G/DL Hematocrit 48 35-52 % Mean Corpuscular Volume 91 80-99 FL Mean Corpuscular Hemoglobin 31 25-34 PG Mean Corpuscular Hemoglobin Concent 34 32-36 G/DL Red Cell Distribution Width 12.1 10.0-14.5 % Platelet Count 460 H 130-400 10^3/uL Mean Platelet Volume 9.5 7.4-10.4 FL Neutrophils (%) (Auto) 65 42-75 % Lymphocytes (%) (Auto) 27 12-44 % Monocytes (%) (Auto) 6 0-12 % Eosinophils (%) (Auto) 2 0-10 % Basophils (%) (Auto) 0 0-10 % Neutrophils # (Auto) 7.9 H 1.8-7.8 X 10^3 Lymphocytes # (Auto) 3.3 1.0-4.0 X 10^3 Monocytes # (Auto) 0.7 0.0-1.0 X 10^3 Eosinophils # (Auto) 0.2 0.0-0.3 10^3/uL Basophils # (Auto) 0.0 0.0-0.1 10^3/uL Sodium Level 132 L 135-145 MMOL/L Potassium Level 4.0 3.6-5.0 MMOL/L Chloride Level 83 L 98-107 MMOL/L Carbon Dioxide Level 31 21-32 MMOL/L Anion Gap 18 H 5-14 MMOL/L Blood Urea Nitrogen 30 H 7-18 MG/DL Creatinine 1.07 0.60-1.30 MG/DL Estimat Glomerular Filtration Rate 53 BUN/Creatinine Ratio 28 Glucose Level 168 H 70-105 MG/DL Calcium Level 11.0 H 8.5-10.1 MG/DL Corrected Calcium 8.5-10.1 MG/DL Total Bilirubin 0.8 0.1-1.0 MG/DL Aspartate Amino Transf (AST/SGOT) 27 5-34 U/L Alanine Aminotransferase (ALT/SGPT) 35 0-55 U/L Alkaline Phosphatase 106 40-136 U/L C-Reactive Protein High Sensitivity 0.29 0.00-0.50 MG/DL Total Protein 8.9 H 6.4-8.2 GM/DL Albumin 5.0 H 3.2-4.5 GM/DL Lipase 37 8-78 U/L Urine Color YELLOW Urine Clarity CLEAR Urine pH 5.0 5-9 Urine Specific [place] >=1.030 1.016-1.022 Urine Protein 2+ H NEGATIVE Urine Glucose (UA) NEGATIVE NEGATIVE Urine Ketones TRACE H NEGATIVE Urine Nitrite NEGATIVE NEGATIVE Urine Bilirubin 1+ H NEGATIVE Urine Urobilinogen 0.2 < = 1.0 MG/DL Urine Leukocyte Esterase 2+ H NEGATIVE Urine RBC (Auto) 3+ H NEGATIVE Urine RBC 25-50 H /HPF Urine WBC TNTC H /HPF Urine Squamous Epithelial Cells 2-5 /HPF Urine Crystals NONE /LPF Urine Bacteria LARGE H /HPF Urine Casts NONE /LPF Urine Mucus NEGATIVE /LPF Urine Culture Indicated YES Micro Results Microbiology 11/20/19 Influenza Types A,B Antigen (LEONEL) - Final, Complete My Orders Orders - EBONIE TABARES Ondansetron Injection (Zofran Injectio (11/20/19 20:24) Ondansetron Injection (Zofran Injectio (11/20/19 20:45) Influenza A And B Antigens (11/20/19 20:32) Fentanyl Injection (Sublimaze Injection (11/20/19 20:45) Ondansetron Injection (Zofran Injectio (11/20/19 20:45) Cbc With Automated Diff (11/20/19 20:34) Hs C Reactive Protein (11/20/19 20:34) Comprehensive Metabolic Panel (11/20/19 20:34) Lipase (11/20/19 20:34) Influenza A And B Antigens (11/20/19 20:34) Ed Iv/Invasive Line Start (11/20/19 20:34) Lactated Ringers (Lr 1000 Ml Iv Solution (11/20/19 20:34) Ua Culture If Indicated (11/20/19 20:34) Ct Abdomen/Pelvis W (11/20/19 20:34) Iohexol Injection (Omnipaque 350 Mg/Ml 1 (11/20/19 21:15) Received Contrast (Hold Metformin- Contr (11/20/19 21:15) Ns (Ivpb) (Sodium Chloride 0.9% Ivpb Bag (11/20/19 21:15) Urine Culture (11/20/19 20:54) Hydrocodone/Apap Oral Solution (Lortab 7 (11/20/19 22:15) Ceftriaxone For Iv Use (Rocephin For I (11/20/19 22:15) Medications Given in ED Current Medications Medications Dose Ordered Sig/Toni Route Start Time Stop Time Status Last Admin Dose Admin Acetaminophen/ Hydrocodone Bitart 15 ml ONCE ONCE PEG 11/20/19 22:15 11/20/19 22:16 DC 11/20/19 22:25 15 ML Ceftriaxone Sodium 1000 mg/ Sterile Water 10 ml @ 200 mls/hr ONCE ONCE IV 11/20/19 22:15 11/20/19 22:17 DC 11/20/19 22:25 200 MLS/HR Fentanyl Citrate 50 mcg ONCE ONCE IVP 11/20/19 20:45 11/20/19 20:46 DC 11/20/19 20:44 50 MCG Iohexol 50 ml ONCE ONCE IV 11/20/19 21:15 11/20/19 21:28 DC 11/20/19 21:30 50 ML Lactated Ringer's 1,000 ml @ 0 mls/hr Q0M ONCE IV 11/20/19 20:34 3/4/20 20:40 DC 11/20/19 20:44 0 MLS/HR Ondansetron HCl 4 mg ONCE ONCE IVP 11/20/19 20:45 11/20/19 20:46 DC 11/20/19 20:36 4 MG Sodium Chloride 100 ml ONCE ONCE IV 11/20/19 21:15 11/20/19 21:28 DC 11/20/19 21:30 100 ML Vital Signs/I&O 11/20/19 19:49 Temp 37.2 Pulse 124 Resp 20 B/P (MAP) 126/91 (103) Pulse Ox 96 Blood Pressure Mean: 103 Progress Progress Note : Time: 20:42 Progress Note Patient's belly is soft but tender. She's having some dark green bilious thin drainage around the second abdominal ostomy. Bowel obstruction, obstipation, pancreatitis, gastritis/gastroenteritis, PUD, etc.? Plan to get a CT of the abdomen and pelvis with IV contrast if possible. Give her a liter fluids which is greater than 20 mL/kg. Labs urinalysis influenza swab. Diagnostic Imaging Diagonstic Imaging: CT (with IV contrast) Plain Films/CT/US/NM/MRI: abdomen, pelvis Comments NAME: HERBERT XAVIER [facility] REC#: [id number] PT STATUS: REG ER : 1960 PHYSICIAN: EBONIE TABARES MD ADMIT DATE: 11/20/19/ER Draft Date of Exam:11/20/19 CT ABDOMEN/PELVIS W CT ABDOMEN/PELVIS W PROCEDURE: CT abdomen and pelvis with contrast. TECHNIQUE: Multiple contiguous axial images were obtained through the abdomen and pelvis after administration of intravenous contrast. INDICATION: Abdominal pain COMPARISON: 04/29/2019 FINDINGS: There is mild left basilar atelectasis and pleural thickening which has shown overall improvement when compared to previous study. Percutaneous gastrostomy tube has a stable overall appearance when compared to the previous study as well. Contrast injected via the gastrostomy tube appears to have migrated to the level of the colon. In addition, there is separate catheter with balloon inflated at the level of the left costophrenic sulcus. This may be just above the diaphragm. There is biliary ductal dilatation with previous cholecystectomy noted. No focal hepatic or splenic lesion is identified. Note is made of hiatal hernia with fluid in the visualized distal esophagus. There is no evidence of pancreatic, adrenal gland or renal lesion. No free fluid is seen within the abdomen or pelvis. Partially opacified urinary bladder is unremarkable. IMPRESSION: There are 2 balloontipped catheters in the left upper quadrant. One appears to reside within the upper stomach with the 2nd at the level of the left costophrenic sulcus. Clinical correlation is recommended. Otherwise, no acute abnormality or adverse change is identified. Dictated on workstation # [id number] Dict: 11/20/[id number] Trans: 11/20/198 [facility] [id number] Interpreted by: VENTURA YEAGER MD Electronically signed by: Reviewed: Reviewed by Me Departure Communication (Admissions) Time/Spoke to Admitting Phy: 22:50 Discussed the case with Dr. Walter and she agrees to admit the patient to the floor with abx. Impression Primary Impression: UTI (urinary tract infection) Qualified Codes: N30.01 - Acute cystitis with hematuria Additional Impressions: Sepsis Qualified Codes: A41.9 - Sepsis, unspecified organism Cellulitis Qualified Codes: L03.311 - Cellulitis of abdominal wall Disposition: ADMITTED INPATIENT Condition: Stable Admissions Decision to Admit Reason: Admit from ER (General) Decision to Admit/Date: Nov 20, 2019 Time/Decision to Admit Time: 10:15 Departure-Patient Inst. Referrals: CHIQUITA RICH MD (PCP/Family) Primary Care Physician EBONIE TABARES Nov 20, 2019 20:44
[2019-11-20] MEDS ORDERED: ONDANSETRON 4 MG/2 ML (SDV) Z0FRAN IVP ONE ×2 (20:45)
[2019-11-20] MEDS ORDERED: fentaNYL INJECTION 100 MCG/2 ML AMP IVP ONE (20:45)
[2019-11-20 20:58] LABS: ALANINE AMINOTRANSFERASE 35 U/L (0-55); ALKALINE PHOSPHATASE 106 U/L (40-136); BILIRUBIN,TOTAL 0.8 MG/DL (0.1-1.0); BUN/CREATININE RATIO 28; CARBON DIOXIDE 31 MMOL/L (21-32); CHLORIDE 83 MMOL/L (98-107); CREATININE SERUM 1.07 MG/DL (0.60-1.30); GFR ESTIMATED 53; GLUCOSE 168 MG/DL (70-105); LIPASE 37 U/L (8-78); SODIUM 132 MMOL/L (135-145); TOTAL PROTEIN 8.9 GM/DL (6.4-8.2)
[2019-11-20 21:03] LABS: CLARITY,URINE CLEAR; COLOR,URINE YELLOW; GLUCOSE, URINE (UA) NEGATIVE (NEGATIVE); KETONES,URINE TRACE (NEGATIVE); LEUKOCYTE ESTERASE ,URINE 2+ (NEGATIVE); NITRITE,URINE NEGATIVE (NEGATIVE); PROTEIN,URINE 2+ (NEGATIVE)
[2019-11-20] MEDS ORDERED: HOLD METFORMIN - RECEIVED CONTRAST 20 ML VIAL IV SCH (21:15)
[2019-11-20] MEDS ORDERED: NS 100 ML (IVPB) BAG IV ONE (21:15)
[2019-11-20] MEDS ORDERED: IOHEXOL 350 MG/ML 100 ML (OMNIPAQUE 350) VIAL IV ONE (21:15)
[2019-11-20 21:19] LABS: BACTERIA,URINE LARGE /HPF; BILIRUBIN,URINE 1+ (NEGATIVE); RBC,URINE 25-50 /HPF; WBC,URINE TNTC /HPF
--- NOTE | 2019-11-20 21:59 | Diagnostic Imaging Report ---
CT ABDOMEN/PELVIS W PROCEDURE: CT abdomen and pelvis with contrast. TECHNIQUE: Multiple contiguous axial images were obtained through the abdomen and pelvis after administration of intravenous contrast. INDICATION: Abdominal pain COMPARISON: 04/29/2019 FINDINGS: There is mild left basilar atelectasis and pleural thickening which has shown overall improvement when compared to previous study. Percutaneous gastrostomy tube has a stable overall appearance when compared to the previous study as well. Contrast injected via the gastrostomy tube appears to have migrated to the level of the colon. In addition, there is separate catheter with balloon inflated at the level of the left costophrenic sulcus. This may be just above the diaphragm. There is biliary ductal dilatation with previous cholecystectomy noted. No focal hepatic or splenic lesion is identified. Note is made of hiatal hernia with fluid in the visualized distal esophagus. There is no evidence of pancreatic, adrenal gland or renal lesion. No free fluid is seen within the abdomen or pelvis. Partially opacified urinary bladder is unremarkable. IMPRESSION: There are 2 balloontipped catheters in the left upper quadrant. One appears to reside within the upper stomach with the 2nd at the level of the left costophrenic sulcus. Clinical correlation is recommended. Otherwise, no acute abnormality or adverse change is identified. Dictated by: Dictated on workstation # [id number]
[2019-11-20] MEDS ORDERED: HYDROcodone/APAP 7.5MG-325 MG/15 ML (LORTAB) UDC PEG ONE (22:15)
[2019-11-20] MEDS ORDERED: cefTRIAXone FOR IV USE 1,000 MG in WATER (STERILE) FOR INJECTION 10 ML IV ONE (22:15)
--- NOTE | 2019-11-20 23:40 | NUR ---
XAVIERHERBERT admitted to room 417-1, with an admitting diagnosis of SEPSIS, UTI, AND CELLULITIS, on 11/20/19 from [facility], accompanied by FAMILY AND STAFF.HERBERT XAVIER AND FAMILY introduced to surroundings, call light, bed controls, phone, TV, temperature control, lights, meal times, smoking policy, visitor policy, side rail policy, bathrooms and showers. Patient Rights given to patient in the handbook. HERBERT XAVIER verbalizes understanding that [facility] is not responsible for the loss or damage to any personal effects or valuables that are kept in the patients posession during their hospitalization. HERBERT XAVIER verbalizes understanding of Interdisciplinary Patient Education. Patient and/or family were informed about the Rapid Response Team and its purpose.
[2019-11-21] VITALS (7 sets, daily range): BP systolic 111–145; BP diastolic 73–95
--- NOTE | 2019-11-21 00:01 | NUR ---
THIS RN CALLED CUSTOMER SERVICE DRIVER REGARDING ORDER FOR PEPTAMEN 30 ML/HR TUBE FEEDING. DO NOT CARRY THAT FORMULA ON THE FLOOR. CUSTOMER SERVICE DRIVER NOTIFIED THIS RN TO USE JEVITY 1.5 AT 30 ML/HR PER DOCTOR'S ORDER.
[2019-11-21] MEDS ORDERED: NS IV 1000 ML 1,000 ML ONE (00:36)
[2019-11-21] MEDS: NS IV 1000 ML 1,000 ML IV SCH ×3 (02:41→21:02)
[2019-11-21] MEDS ORDERED: APAP 325 MG/10.15 ML LIQ (TYLENOL) UDC PO PRN (02:45)
[2019-11-21] MEDS ORDERED: HYDROcodone/APAP 7.5MG-325 MG/15 ML (LORTAB) UDC PO PRN (02:45)
[2019-11-21] MEDS: fentaNYL INJECTION 100 MCG/2 ML AMP IV PRN ×5 (03:02→21:03)
[2019-11-21 06:25] LABS: BASOPHILS % (AUTO) 0 % (0-10); EOSINOPHILS # (AUTO) 0.1 10^3/uL (0.0-0.3); EOSINOPHILS % (AUTO) 1 % (0-10); HEMATOCRIT 42 % (35-52); HEMOGLOBIN 14.3 G/DL (11.5-16.0); LYMPHOCYTES % (AUTO) 28 % (12-44); MEAN CORPUSCULAR HEMOGLOBIN 31 PG (25-34); MEAN CORPUSCULAR HGB CONC 34 G/DL (32-36); MEAN CORPUSCULAR VOLUME 93 FL (80-99); MEAN PLATELET VOLUME 9.2 FL (7.4-10.4); MONOCYTES # (AUTO) 0.7 X 10^3 (0.0-1.0); MONOCYTES % (AUTO) 7 % (0-12); NEUTROPHILS # (AUTO) 7.1 X 10^3 (1.8-7.8); NEUTROPHILS % (AUTO) 65 % (42-75); PLATELET COUNT 361 10^3/uL (130-400); RED CELL DISTRIBUTION WIDTH 12.2 % (10.0-14.5)
[2019-11-21 06:46] LABS: ALANINE AMINOTRANSFERASE 28 U/L (0-55); ALKALINE PHOSPHATASE 81 U/L (40-136); BILIRUBIN,TOTAL 0.4 MG/DL (0.1-1.0); BUN/CREATININE RATIO 28; CALCIUM 9.7 MG/DL (8.5-10.1); CARBON DIOXIDE 30 MMOL/L (21-32); CHLORIDE 91 MMOL/L (98-107); GFR ESTIMATED > 60; GLUCOSE 129 MG/DL (70-105); POTASSIUM 3.5 MMOL/L (3.6-5.0); SODIUM 134 MMOL/L (135-145); TOTAL PROTEIN 7.4 GM/DL (6.4-8.2)
[2019-11-21] MEDS ORDERED: ONDANSETRON 4 MG/2 ML (SDV) Z0FRAN ONE (06:54)
[2019-11-21 06:55] LABS: EOSINOPHILS % (MANUAL) 1 %; LYMPHOCYTES % (MANUAL) 24 %; MONOCYTES % (MANUAL) 6 %; NEUTROPHILS % (MANUAL) 69 %
[2019-11-21 06:56] LABS: RBC MORPH NORMAL
[2019-11-21] MEDS: ONDANSETRON 4 MG/2 ML (SDV) Z0FRAN IVP PRN ×4 (07:00→21:03)
--- NOTE | 2019-11-21 07:03 | NUR ---
PT REPORTED THAT SHE IS NOT ABLE TO TOLERATE TUBE FEEDINGS RATE GOING AT 30ML/HR. SHE PREFERS FEEDINGS GOING AT 20ML/HR. DR. PARTIDA NOTIFIED AND AGREED TO DECREASE TUBE FEEDINGS AT 20 ML/HR.
--- NOTE | 2019-11-21 09:48 | NUR ---
STILL C/O NAUSEA -- WANTING SOMETHING -- HAS 2 HRS BEFORE I CAN GIVE ANOTHER DOSE OF ZOFRAN -- CALLED AND LEFT MESSAGE FOR DR PARTIDA
--- NOTE | 2019-11-21 10:04 | History & Physical ---
HPI History of Present Illness: Nausea and body aches for "a while", has lost 20 lbs in the last month. She denies diarrhea. Source: patient Date seen by provider: Nov 21, 2019 Time Seen by Provider: 10:02 Attending Physician Lurdes Walter MD PCP Jos Snow MD Consult Date of Admission Nov 20, 2019 at 23:00 Home Medications Home Medications Reviewed patient Home Medication Reconciliation performed by pharmacy medication reconciliations gallery or museum technician and/or nursing. Patients Allergies have been reviewed. Allergies Coded Allergies: codeine (Unverified Adverse Reaction, Unknown, 09/03/18) severe stomach pain LTT-Ivbjge-Pkcvee Hx Patient Social History Alcohol Use: Denies Use Recreational Drug Use: No 2nd Hand Smoke Exposure: No Recent Foreign Travel: No Contact w/other who traveled: No Recent Hopitalizations: No Recent Infectious Disease Expo: No Immunizations Up To Date Tetanus Booster (TDap): Unknown Date of Pneumonia Vaccine: Sep 18, 2019 Date of Influenza Vaccine: Nov 15, 2019 Past Medical History PMHx: Asthma Supplemental oxygen dependent SurgHx: Hiatal hernia repair x 3 Esphageal rupture with T tube placement Venting G tube placement J tube placement Bilateral chest tubes Family Medical History Significant Family History: No Pertinent Family Hx Family History: Hypertension 19 FATHER G8 SISTER Review of Systems ([facility]) Constitutional: No fever EENTM: nose congestion; No throat pain Respiratory: cough, short of breath Cardiovascular: No chest pain Gastrointestinal: see HPI Genitourinary: No decreased output, No dysuria Skin: No rash Reviewed Test Results Reviewed Test Results Lab Laboratory Tests Test 11/20/19 20:23 11/20/19 20:54 11/21/19 06:05 Range/Units White Blood Count 12.2 H 11.0 4.3-11.0 10^3/uL Red Blood Count 5.32 4.57 4.35-5.85 10^6/uL Hemoglobin 16.4 H 14.3 11.5-16.0 G/DL Hematocrit 48 42 35-52 % Mean Corpuscular Volume 91 93 80-99 FL Mean Corpuscular Hemoglobin 31 31 25-34 PG Mean Corpuscular Hemoglobin Concent 34 34 32-36 G/DL Red Cell Distribution Width 12.1 12.2 10.0-14.5 % Platelet Count 460 H 361 130-400 10^3/uL Mean Platelet Volume 9.5 9.2 7.4-10.4 FL Neutrophils (%) (Auto) 65 65 42-75 % Lymphocytes (%) (Auto) 27 28 12-44 % Monocytes (%) (Auto) 6 7 0-12 % Eosinophils (%) (Auto) 2 1 0-10 % Basophils (%) (Auto) 0 0 0-10 % Neutrophils # (Auto) 7.9 H 7.1 1.8-7.8 X 10^3 Lymphocytes # (Auto) 3.3 3.0 1.0-4.0 X 10^3 Monocytes # (Auto) 0.7 0.7 0.0-1.0 X 10^3 Eosinophils # (Auto) 0.2 0.1 0.0-0.3 10^3/uL Basophils # (Auto) 0.0 0.0 0.0-0.1 10^3/uL Sodium Level 132 L 134 L 135-145 MMOL/L Potassium Level 4.0 3.5 L 3.6-5.0 MMOL/L Chloride Level 83 L 91 L 98-107 MMOL/L Carbon Dioxide Level 31 30 21-32 MMOL/L Anion Gap 18 H 13 5-14 MMOL/L Blood Urea Nitrogen 30 H 22 H 7-18 MG/DL Creatinine 1.07 0.80 0.60-1.30 MG/DL Estimat Glomerular Filtration Rate 53 > 60 BUN/Creatinine Ratio 28 28 Glucose Level 168 H 129 H 70-105 MG/DL Calcium Level 11.0 H 9.7 8.5-10.1 MG/DL Corrected Calcium 9.7 8.5-10.1 MG/DL Total Bilirubin 0.8 0.4 0.1-1.0 MG/DL Aspartate Amino Transf (AST/SGOT) 27 23 5-34 U/L Alanine Aminotransferase (ALT/SGPT) 35 28 0-55 U/L Alkaline Phosphatase 106 81 40-136 U/L C-Reactive Protein High Sensitivity 0.29 0.00-0.50 MG/DL Total Protein 8.9 H 7.4 6.4-8.2 GM/DL Albumin 5.0 H 4.0 3.2-4.5 GM/DL Lipase 37 8-78 U/L Urine Color YELLOW Urine Clarity CLEAR Urine pH 5.0 5-9 Urine Specific [place] >=1.030 1.016-1.022 Urine Protein 2+ H NEGATIVE Urine Glucose (UA) NEGATIVE NEGATIVE Urine Ketones TRACE H NEGATIVE Urine Nitrite NEGATIVE NEGATIVE Urine Bilirubin 1+ H NEGATIVE Urine Urobilinogen 0.2 < = 1.0 MG/DL Urine Leukocyte Esterase 2+ H NEGATIVE Urine RBC (Auto) 3+ H NEGATIVE Urine RBC 25-50 H /HPF Urine WBC TNTC H /HPF Urine Squamous Epithelial Cells 2-5 /HPF Urine Crystals NONE /LPF Urine Bacteria LARGE H /HPF Urine Casts NONE /LPF Urine Mucus NEGATIVE /LPF Urine Culture Indicated YES Neutrophils % (Manual) 69 % Lymphocytes % (Manual) 24 % Monocytes % (Manual) 6 % Eosinophils % (Manual) 1 % Blood Morphology Comment NORMAL Radiology CT abdomen/pelvis 11/19: IMPRESSION: There are 2 balloontipped catheters in the left upper quadrant. One appears to reside within the upper stomach with the 2nd at the level of the left costophrenic sulcus. Clinical correlation is r ecommended. Otherwise, no acute abnormality or adverse change is identified. Physical Exam-([facility]) Physical Exam Vital Signs VS - Last 72 Hours, by Label 11/20/19 11/20/19 11/21/19 11/21/19 19:49 23:26 00:10 00:18 Temp 37.2 37.2 36.9 Pulse 124 88 105 Resp 20 20 20 B/P (MAP) 126/91 (103) 129/88 (103) 122/88 Pulse Ox 96 99 99 O2 Delivery Nasal Cannula Nasal Cannula Nasal Cannula O2 Flow Rate 2.00 2.00 2.00 11/21/19 11/21/19 11/21/19 11/21/19 00:24 04:00 08:00 08:07 Temp 36.9 36.6 36.7 Pulse 105 93 99 Resp 20 18 18 B/P (MAP) 122/88 (99) 144/84 (104) 143/90 (107) Pulse Ox 99 99 99 99 O2 Delivery Nasal Cannula Nasal Cannula Nasal Cannula Nasal Cannula O2 Flow Rate 2.00 2.00 2.00 2.00 11/21/19 11/21/19 12:27 14:31 Temp 37.0 37.0 Pulse 115 Resp 18 B/P (MAP) 129/81 (97) Pulse Ox 99 Capillary Refill : Less Than 3 Seconds General Appearance: no apparent distress, thin Respiratory: lungs clear, normal breath sounds Cardiovascular: regular rate, rhythm, no murmur Gastrointestinal: normal bowel sounds, soft, other (gastric tube, jejunostomy tube and T tubes in place with gauze dresing surrounding and no drainage noted at this time) Extremities: No pedal edema Neurologic/Psychiatric: alert, other (flat affect) Skin: normal color, warm/dry Assessment/Plan Assessment/Plan Admission Status: Inpatient Order (span 2 midnights) Reason for Inpatient Admission: Sepsis with serious underlying comorbidity (1) UTI (urinary tract infection) Status: Acute Assessment & Plan: Ceftriaxone, awaiting culture. Qualifiers: Qualified Codes: N30.01 - Acute cystitis with hematuria (2) Sepsis Status: Acute Assessment & Plan: Secondary to urinary tract infection. Leukocytosis resolved this am. Continue ceftriaxone. Qualifiers: Qualified Codes: A41.9 - Sepsis, unspecified organism (3) Nausea Status: Chronic Assessment & Plan: Worsening over last month, not tolerating tube feeds well, reports her pump at home intermittently works, not sure how much she is getting at home. Will add reglan to zofran. Tube evaluations as below. (4) Gastrostomy tube in place Assessment & Plan: Per record review, venting G tube. Has leaking around tube, Surgery consulted, appreciate recommendations. (5) Jejunostomy present Assessment & Plan: Not tolerating tube feeding well, Surgery consulted for evaluation of tubes, appreciate recommendation. (6) Esophageal rupture Status: Chronic Assessment & Plan: History of esophageal rupture around December 2018, had T tube placement and had extended (over a month) ICU stay at after already being in ICU and LTACH in [place]. Review of records indicates that she had severe mucous plugging of her left lung and bilateral chest tubes during that hospitalization. When it was felt she would need tracheostomy to address the lung issue in order to try to improve to try to pursue more GI surgery, she reportedly did not want tracheostomy and decided to go home with hospice services, however in May 2019 she no longer qualified for hospice, and has since been managing tube feeds and T tube and G tube at home with her daughter's help. At this time, she states she does want to try to get better to see if more treatment can be done to get the tubes out. She is stable on nasal cannula, which appears to be similar to her status at d/c from . (7) DVT prophylaxis Assessment & Plan: Enoxaparin Clinical Quality Measures DVT/VTE Risk/Contraindication: Risk Factor Score Per Nursin RFS Level Per Nursing on Admit: 2=Moderate LURDES WALTER MD Nov 21, 2019 10:04
[2019-11-21] MEDS: METOCLOPRAMIDE INJ 10 MG/2 ML (REGLAN) IVP PRN (11:32)
--- NOTE | 2019-11-21 12:07 | NUR ---
"RD ASSESSMENT PMHx: HTN; GERD PT INTERACTION: Pt was awake and pleasant during consult for MST and TF. Pt states current appetite is poor and has been for some time. Note pt is currently NPO and receiving nutrition via TF. Pt states recent issues with n/v. Pt states no recent issues with constipation/diarrhea and that her last BM was 3d ago. Note pt not currently on bowel regimen per chart review. Pt states recent 20# wt loss x6w. This is significant wt loss at 20% x6w. Upon visual exam, pt appears to be small, frail and cachectic with visible clavicles showing and some suborbital fat pad loss, and a BMI of 18.4. Given wt hx, visual exam, and poor PO intake, pt meets criteria for malnutrition per ASPEN guidelines. ABNORMAL NUTRITION-RELATED LAB VALUES LOW: Na 134; K 3.5; Cl 91 HIGH: BUN 22; glu 129 Est. kcal needs: 0523-7543 kcal | 30-35 kcal/kg Est. Pro needs: 43-54 g Pro | 1.2-1.5 g Pro/kg PES STATEMENT: Inadequate oral intake (NI-2.1) related to loss of appetite | nausea | vomiting | NPO status as evidenced by chart review | pt interview INTERVENTION: Pt is currently NPO and currently receiving TF. Would recommend the following TF: Jevity 1.5 at goal rate of 30ml/hr. Begin at 20ml/hr and increase by 5ml q6h as tolerated. Monitor gastric residuals for tolerance. At goal rate, provides 1080 kcal (30kcal/kg); 45 g Pro (1.3 g Pro/kg); and 547ml free water. Flush with 50ml H2O q4h for hydration status. with flushes, provides 847ml free water. Will continue to follow and reassess as pt needs, intake and status change. MONITOR/EVALUATE: PO Intake; Plan of Care; Hydration Status; Weight Status; Lab Values Maria Teresa Saul, MS, RD, LD"
[2019-11-21] MEDS ORDERED: METO-310 PO (15:18)
[2019-11-21] MEDS ORDERED: LORA-404 SL (15:18)
[2019-11-21] MEDS ORDERED: PROC10TA10 PO (15:18)
[2019-11-21] MEDS ORDERED: FENT1PAT8 TD (15:18)
--- NOTE | 2019-11-21 15:22 | NUR ---
UNABLE TO SPEAK WITH THE PT BUT I DID RECEIVE A MED LIST FROM MICHAEL ( I PUT A COPY ON HER CHART) AND SPOKE WITH [facility] TO COMPLETE THE MED REC. THE FOLLOWING ARE FILL DATES FROM [facility]: 10-24-2019 FENTANYL 25MCG #10/30DS 10-24-2019 LORAZEPAM 0.5MG #56/PRN 10-29-2019 HYDROCODONE 7.5 MG LIQUID 1000ML/12DS 11-15-2019 METOCLOPRAMIDE 10MG #100/25DS THE FOLLOWING ARE FILL DATES FROM [facility]: 11-13-2019 HYDROCODONE 7.5MG LIQUID 1000ML/12DS 11-13-2019 PROCHLORPERAZINE 10MG #30/5DS OTC MEDS: MELATONIN
[2019-11-21] MEDS ORDERED: DEXAMETHASONE 4 MG/ML SDV (DECADRON) ONE (15:38)
[2019-11-21] MEDS ORDERED: ACETAMINOPHEN PEG PRN (16:15)
[2019-11-21] MEDS ORDERED: LORazepam 0.5 MG (ATIVAN) TABLET SL PRN (16:15)
[2019-11-21] MEDS ORDERED: ENOXAPARIN 40 MG/0.4 ML (LOVENOX) SYR SQ SCH (16:15)
[2019-11-21] MEDS ORDERED: MELATONIN 3 MG TABLET PO PRN (16:15)
[2019-11-21] MEDS ORDERED: [UNRECOGNIZED DRUG - OTHER] PEG PRN (16:15)
[2019-11-21] MEDS ORDERED: HYDROCODONE PEG PRN (16:15)
--- NOTE | 2019-11-21 16:22 | CONSULTATION REPORT ---
DATE OF SERVICE: 11/21/2019 ATTENDING PRIMARY CARE PHYSICIAN: Dr. Snow. ADMITTING PHYSICIAN: Dr. Walter. HISTORY OF PRESENT ILLNESS: The patient is a 59-year-old female who presented with multiple complications due to a previous hiatal hernia. It appears that she did have a large type 4 hiatal hernia in 2016 who underwent a robotic repair of the hiatal hernia as well as a partial fundoplication. She then developed recurrence of the hernia in 2019 and this was done in [place]. The recurrent hiatal hernia was repaired; however, she developed an esophageal perforation and was transferred to [facility] where she underwent what appears to be a closure of the distal end of the esophagus, thoracic fistula as well as a gastrostomy tube and jejunostomy tube. She had lost a significant amount of weight and was not doing well and it is our understanding that she went for hospice care; however, did improve over time. She has been back several times due to issues with her gastrostomy tube. She was admitted due to nausea and vomiting as well as not tolerating her tube feeds as well as failure to thrive. At this time, upon examination, she does have 3 tubes, one appears to be a thoracic esophagostomy, a gastrostomy tube as well as a feeding jejunostomy tube. She does appear to be very thin and frail and does have intermittent episodes of nausea. PAST MEDICAL HISTORY: 1. Large type 4 hiatal hernia, status post repair and reoccurrence with esophageal perforation 2. Asthma. 3. History of gastroesophageal reflux disease. 4. Chronic degenerative joint disease. PAST SURGICAL HISTORY: Cholecystectomy, hysterectomy, laparoscopic hiatal hernia repair with partial fundoplication, repair of recurrent hiatal hernia with esophageal perforation and thoracic esophagostomy placement as well as a feeding jejunostomy tube and decompressive gastrostomy tube placement, hysterectomy, cholecystectomy. ALLERGIES: CODEINE. MEDICATIONS: Hydrocodone p.r.n., lorazepam p.r.n., melatonin p.r.n., cephalexin 500 mg b.i.d., budesonide 2 puffs b.i.d. SOCIAL HISTORY: Negative smoke, negative alcohol. FAMILY HISTORY: Noncontributory. VITAL SIGNS: Temperature 37.0, blood pressure 129/81, pulse 115, respirations 18, pulse ox 99% on 2 liters nasal cannula. REVIEW OF SYSTEMS: This is a very thin and frail-appearing female, currently nauseous and does have small amounts of what appears to be salivary emesis. There is some mild drainage out of her thoracic esophagostomy tube. There is what appears to be succus entericus within the gastrostomy tube, which was placed to a gravity drainage bag. She states that she was having bowel function before admission. No red blood per rectum, no dark tarry stools. No fever, chills with a steady weight loss over the past year. PHYSICAL EXAMINATION: CHEST: Few scattered breath sounds bilaterally. HEART: Regular, no murmurs. EXTREMITIES: No lower extremity edema, negative Homans sign. HEENT: No scleral icterus. NECK: No cervical lymphadenopathy. ABDOMEN: Soft, nondistended. There is a mild amount of drainage around the gastrostomy tube site with what appears to be a tinea infection around the gastrostomy tube site. SKIN: Warm, dry. LABORATORY DATA: WBC 11.0, hemoglobin 14.3, hematocrit 42, platelets 361. Urinalysis, leukocyte esterase 2+ positive with large amounts of urine bacteria. ASSESSMENT AND PLAN: A 59-year-old female with intolerance of jejunostomy feeding tubes as well as weight loss and failure to thrive. A CT scan was performed, which did not show any dilated loops of small bowel; however, it appears from a clinical standpoint she may have an ileus secondary to a UTI. She does have regurgitation of small bowel contents into the gastrostomy tube and we will place this to a gravity drainage bag. The question is if there is any mechanical obstruction of the small bowel; however, clinically does not appear so. She is currently being treated for urinary tract infection and we will also proceed with a small bowel follow through with Gastrografin through the jejunostomy tube to rule out any mechanical obstruction. The tube coming out of the chest appears to be a spit thoracic esophagostomy tube for comfort and it appears that this is a blind end and she has part of her stomach remaining where there is a gastrostomy tube as well as a jejunostomy tube; however, she is in no condition for any operative repair of this. If any obstruction is identified, we would refer her to the adequate specialist. Job ID: [id number] DocumentID: [id number] Dictated Date: 11/21/2019 15:48:44 Carpet Mechanic Date: 11/21/2019 16:21:26 Dictated By: TAI SANCHEZ MD [facility]
--- NOTE | 2019-11-21 18:41 | NUR ---
PEG TUBE FEEDING ARE ON HOLD -- DR SANCHEZ WILL ADDRESS AFTER BOWEL FOLLOW THROUGH
[2019-11-21] MEDS: ENOXAPARIN 30 MG/0.3 ML (LOVENOX) SYR SC SCH (18:47)
--- NOTE | 2019-11-21 20:44 | Diagnostic Imaging Report ---
INDICATION: Hypoxia PA and lateral views of the chest are obtained with comparison made to study of 04/29/2019. There is air trapping, bilaterally. There is continued blunting of the left costophrenic sulcus which may be due to small amount of left pleural fluid and/or thickening with left perihilar atelectasis and/or scarring. Note is made of calcification of the left hilum likely related to previous granulomatous exposure. There is no evidence of pneumothorax or other adverse change. Catheter does project over the left upper quadrant reaching the level of left costophrenic sulcus. IMPRESSION: Left pleural fluid and/or thickening with catheter projecting over the left costophrenic sulcus. No definite pneumothorax is identified. Catheter coursing through the parietal pleura of the left hemithorax is not excluded. Dictated by: Dictated on workstation # [id number]
[2019-11-21] MEDS: cefTRIAXone 1,000 MG/SWFI 10 ML IV PUSH IV SCH ×2 (21:02)
[2019-11-21] MEDS: DEXAMETHASONE 4 MG/ML SDV (DECADRON) IV PRN (21:03)
[2019-11-22] MEDS: fentaNYL INJECTION 100 MCG/2 ML AMP IV PRN ×2 (00:42→09:38)
[2019-11-22] MEDS: METOCLOPRAMIDE INJ 10 MG/2 ML (REGLAN) IVP PRN (00:43)
[2019-11-22] MEDS: ONDANSETRON 4 MG/2 ML (SDV) Z0FRAN IVP PRN ×3 (02:29→20:23)
[2019-11-22 04:00] VITALS: BP 115/75
[2019-11-22] MEDS: LORazepam INJ 2 MG/ML (ATIVAN) VIAL IVP PRN ×3 (04:12→20:24)
[2019-11-22 04:53] LABS: HEMOGLOBIN 11.9 G/DL (11.5-16.0); MEAN PLATELET VOLUME 8.8 FL (7.4-10.4)
[2019-11-22 05:12] LABS: BUN/CREATININE RATIO 23; CALCIUM 8.9 MG/DL (8.5-10.1); CARBON DIOXIDE 30 MMOL/L (21-32); CHLORIDE 99 MMOL/L (98-107); CREATININE SERUM 0.74 MG/DL (0.60-1.30); GFR ESTIMATED > 60; GLUCOSE 122 MG/DL (70-105); POTASSIUM 3.2 MMOL/L (3.6-5.0); SODIUM 139 MMOL/L (135-145)
--- NOTE | 2019-11-22 07:30 | NUR ---
patient bed soaked with bile drainage from left lower abd tube. gauze and ABD dressing applied to area
[2019-11-22 08:00] VITALS: BP 100/82
[2019-11-22] MEDS: fentaNYL PATCH 25 MCG (DURAGESIC) TD SCH (08:06)
[2019-11-22] MEDS: FENTANYL PATCH REMOVAL TP SCH (08:06)
--- NOTE | 2019-11-22 09:00 | NUR ---
dressing soaked with bile drainage from left lower abd tube. gauze and ABD dressing reapplied to area
[2019-11-22] MEDS: POTASSIUM CL 10MEQ/50ML IVPB 50 ML IV SCH ×4 (09:13→12:50)
[2019-11-22] MEDS: NS IV 1000 ML 1,000 ML IV SCH ×3 (09:13→20:25)
--- NOTE | 2019-11-22 10:15 | NUR ---
Radiology Attempted twice to take patient for Small bowel Follow through. First time patient stated she would not go without nausea and pain medication Second time patient stated after the administration of pain/ nausea medication that she would not go because "radiology is going to torture her by making her lay flat which she refuses to do" radiology cancelled procedure at this time
--- NOTE | 2019-11-22 10:41 | Progress Note ---
THADDEUSROSANA MED STUDENT 11/22/19 1041: Subjective Subjective/Events-last exam Pt reports that last night was rough; the ostomy bag around her G tube was collecting some of the fluid draining, but some of the fluid was also leaking from where the bag attaches to her body. This caused pain and burning. She has continued to have nausea and some clear, foamy emesis. She requested some medication for pain. ROS + for chills (reports she is always cold); ROS - for headache, shortness of breath, chest pain. Review of Systems General: Chills HEENT: No Head Aches Pulmonary: No Dyspnea Cardiovascular: No: Chest Pain Gastrointestinal: Nausea, Vomiting Musculoskeletal: back pain Objective Exam Last Set of Vital Signs Vital Signs Date Time Temp Pulse Resp B/P (MAP) Pulse Ox O2 Delivery O2 Flow Rate FiO2 11/22/19 08:00 37.0 110 20 100/82 (88) 97 Nasal Cannula 2.00 Capillary Refill : Less Than 3 Seconds I&O Intake and Output 11/22/19 00:00 Intake Total 1070 ml Output Total 250 ml Balance 820 ml Intake Oral 0 ml IV Total 1000 ml Tube Feeding 70 ml Output Urine Total 250 ml # Voids 3 Daily Weight Change Unsure/Unresponsive General: Alert, Oriented X3, Mild Distress (Pt's ostomy bag had leaked, and she was very anxious about getting the spillage cleaned up) HEENT: Atraumatic Lungs: Clear to Auscultation Heart: Regular Rate Abdomen: Other (Irritation around G tube site; ostomy bag initially in place, new dressing applied to area during interview) Extremities: No Edema Results/Procedures Lab Laboratory Tests 11/22/19 04:25: White Blood Count 6.0, Red Blood Count 3.86L, Hemoglobin 11.9, Hematocrit 36, Mean Corpuscular Volume 94, Mean Corpuscular Hemoglobin 31, Mean Corpuscular Hemoglobin Concent 33, Red Cell Distribution Width 12.0, Platelet Count 276, Mean Platelet Volume 8.8, Sodium Level 139, Potassium Level 3.2L, Chloride Level 99, Carbon Dioxide Level 30, Anion Gap 10, Blood Urea Nitrogen 17, Creatinine 0.74, Estimat Glomerular Filtration Rate > 60, BUN/Creatinine Ratio 23, Glucose Level 122H, Calcium Level 8.9 Microbiology 11/20/19 Urine Culture - Preliminary, Resulted Mixed Bacterial Claritza With Escherichia coli 11/20/19 Influenza Types A,B Antigen (LEONEL) - Final, Complete Radiology CT abdomen/pelvis 11/19: IMPRESSION: There are 2 balloontipped catheters in the left upper quadrant. One appears to reside within the upper stomach with the 2nd at the level of the left costophrenic sulcus. Clinical correlation is recommended. Otherwise, no acute abnormality or adverse change is identified. Assessment/Plan Assessment/Plan Admission Dx #UTI #Sepsis - Vitals normalized - Receiving NS at 100mL/h - WBCs decreased to 6.0 - Benjamin still in place - Continue ceftriaxone #Nausea - Pt reports that initial nausea medication seemed to work better for her - Continuing to have nausea and emesis of saliva this morning - Planning for small bowel follow through with Gastrografin through J tube today to r/o mechanical obstruction #Pain - Fentanyl available PRN #Hypokalemia - IV replacement ordered; will CTM (1) UTI (urinary tract infection) Status: Acute Assessment & Plan: Ceftriaxone, awaiting culture. Qualifiers: Qualified Codes: N30.01 - Acute cystitis with hematuria (2) Sepsis Status: Acute Assessment & Plan: Secondary to urinary tract infection. Leukocytosis resolved this am. Continue ceftriaxone. Qualifiers: Qualified Codes: A41.9 - Sepsis, unspecified organism (3) Nausea Status: Chronic Assessment & Plan: Worsening over last month, not tolerating tube feeds well, reports her pump at home intermittently works, not sure how much she is getting at home. Will add reglan to zofran. Tube evaluations as below. (4) Gastrostomy tube in place Assessment & Plan: Per record review, venting G tube. Has leaking around tube, Surgery consulted, appreciate recommendations. (5) Jejunostomy present Assessment & Plan: Not tolerating tube feeding well, Surgery consulted for evaluation of tubes, appreciate recommendation. (6) Esophageal rupture Status: Chronic Assessment & Plan: History of esophageal rupture around December 2018, had T tube placement and had extended (over a month) ICU stay at after already being in ICU and LTACH in [place]. Review of records indicates that she had severe mucous plugging of her left lung and bilateral chest tubes during that hospitalization. When it was felt she would need tracheostomy to address the lung issue in order to try to improve to try to pursue more GI surgery, she reportedly did not want tracheostomy and decided to go home with hospice services, however in May 2019 she no longer qualified for hospice, and has since been managing tube feeds and T tube and G tube at home with her daughter's help. At this time, she states she does want to try to get better to see if more treatment can be done to get the tubes out. She is stable on nasal cannula, which appears to be similar to he r status at d/c from . (7) DVT prophylaxis Assessment & Plan: Enoxaparin Clinical Quality Measures DVT/VTE Risk/Contraindication: Risk Factor Score Per Nursin RFS Level Per Nursing on Admit: 2=Moderate SHANNA WALTER MD 11/22/19 1307: Supervisory-Addendum Brief Verification & Attestation Participated in pt care: history, MDM, physical Personally performed: exam, history, MDM Care discussed with: Medical Student Procedures: n/a Verification and Attestation of Medical Student E/M Service A medical student performed and documented this service. I reviewed and verified all information documented by the medical student and made modifications to such information, when appropriate. I personally performed the physical exam and medical decision making. Shanna Walter, Nov 22, 2019,13:06 ROSANA TRAVIS MED STUDENT Nov 22, 2019 10:41 SHANNA WALTER MD Nov 22, 2019 13:07
[2019-11-22 12:00] VITALS: BP 121/78
--- NOTE | 2019-11-22 12:03 | Progress Note ---
Subjective Date Seen by a Provider: Nov 22, 2019 Time Seen by a Provider: 11:45 Subjective/Events-last exam patient not obstructed. had BM today. patient nauseous however will always be due to her pathophysiology of large recurrent HH and thoracic esophagostomy tube. Objective Exam Vital Signs Date Time Temp Pulse Resp B/P (MAP) Pulse Ox O2 Delivery O2 Flow Rate FiO2 11/22/19 08:00 Nasal Cannula 2.00 11/22/19 08:00 37.0 110 20 100/82 (88) 97 Nasal Cannula 2.00 11/22/19 04:00 36.8 64 16 115/75 (88) 95 Nasal Cannula 2.00 11/22/19 00:00 37.0 70 18 100 Nasal Cannula 2.00 11/21/19 20:00 36.7 64 18 111/73 (86) 100 Nasal Cannula 2.00 11/21/19 20:00 100 Nasal Cannula 2.00 11/21/19 17:05 36.5 11/21/19 16:32 36.5 11/21/19 15:55 Nasal Cannula 2.00 11/21/19 15:47 36.5 103 17 145/95 (112) 97 Nasal Cannula 2.00 11/21/19 14:31 37.0 11/21/19 12:27 37.0 115 18 129/81 (97) 99 I & O 11/22/19 07:00 Intake Total 4010 ml Output Total 100 ml Balance 3910 ml Capillary Refill : Less Than 3 Seconds General Appearance: No Apparent Distress HEENT: PERRL/EOMI Neck: Full Range of Motion Respiratory: Chest Non Tender, Decreased Breath Sounds Cardiovascular: Regular Rate, Rhythm Gastrointestinal: normal bowel sounds, non tender, soft Extremity: Normal Capillary Refill Neurologic/Psychiatric: Alert, Oriented x3 Skin: Normal Color Lymphatic: No Adenopathy Results Lab Laboratory Tests 11/22/19 04:25: White Blood Count 6.0, Red Blood Count 3.86L, Hemoglobin 11.9, Hematocrit 36, Mean Corpuscular Volume 94, Mean Corpuscular Hemoglobin 31, Mean Corpuscular Hemoglobin Concent 33, Red Cell Distribution Width 12.0, Platelet Count 276, Mean Platelet Volume 8.8, Sodium Level 139, Potassium Level 3.2L, Chloride Level 99, Carbon Dioxide Level 30, Anion Gap 10, Blood Urea Nitrogen 17, Creatinine 0.74, Estimat Glomerular Filtration Rate > 60, BUN/Creatinine Ratio 23, Glucose Level 122H, Calcium Level 8.9 Microbiology 11/20/19 Urine Culture - Preliminary, Resulted Mixed Bacterial Claritza With Escherichia coli 11/20/19 Influenza Types A,B Antigen (LEONEL) - Final, Complete Assessment/Plan Assessment/Plan Assess & Plan/Chief Complaint UTI with thoracic esophagostomy, gastrostomy and Jejunostomy tube. patient will always have nausea. no continuity with esophagus and stomach. may vent gastrostomy tube PRN. likely due to duodenal reflux. no obstruction distally. start feeding J-tube feeds and advance as tolerated. Clinical Quality Measures DVT/VTE Risk/Contraindication: Risk Factor Score Per Nursin RFS Level Per Nursing on Admit: 2=Moderate TAI SANCHEZ MD Nov 22, 2019 12:03
--- NOTE | 2019-11-22 12:08 | NUR ---
tube feedings restarted per Kido order at 15mls/hr
[2019-11-22] MEDS: HYDROcodone/APAP 7.5MG-325 MG/15 ML (LORTAB) UDC PO PRN ×2 (13:44→20:24)
--- NOTE | 2019-11-22 14:00 | NUR ---
daughter stated she is the sole care providers of her mother at home. daughter stated they have a system at home for dressing changes and she would like to do all dressing changes her self while her mother is here
--- NOTE | 2019-11-22 14:33 | NUR ---
feeding set to 10ml/hr patient stated at home she runs feedings at only 5mls/ hr. patient is tolerating 10mls/ hr well. DANIEL stated feedings need to run slow for now. no more than 15mls/hr with occasional flush
[2019-11-22 16:14] VITALS: BP 115/68
[2019-11-22] MEDS: ENOXAPARIN 30 MG/0.3 ML (LOVENOX) SYR SC SCH (17:28)
[2019-11-22 19:09] VITALS: BP 110/62
[2019-11-22] MEDS: cefTRIAXone 1,000 MG/SWFI 10 ML IV PUSH IV SCH ×2 (20:23)
[2019-11-22] MEDS: DEXAMETHASONE 4 MG/ML SDV (DECADRON) IV PRN (20:23)
[2019-11-23] VITALS: BP 117/73
[2019-11-23] MEDS: HYDROcodone/APAP 7.5MG-325 MG/15 ML (LORTAB) UDC PO PRN (03:14)
[2019-11-23] MEDS: LORazepam INJ 2 MG/ML (ATIVAN) VIAL IVP PRN ×4 (03:14→22:35)
[2019-11-23 07:49] VITALS: BP 121/78
[2019-11-23] MEDS: fentaNYL INJECTION 100 MCG/2 ML AMP IV PRN ×3 (08:58→22:34)
--- NOTE | 2019-11-23 11:50 | Progress Note - Surgery ---
[facility]VI [facility] 11/23/19 1150: Subjective Date Seen by a Provider: Nov 23, 2019 Time Seen by a Provider: 09:42 Subjective/Events-last exam Ms. Cooley stated that she feels nauseated. She states that her "throat and mouth are dry" and was wondering if she could receive a "bolus" of fluid to help with the dryness. She denies any abdominal pain, diarrhea, or constipation. She has no further complaints at this time. Review of Systems HEENT: No Head Aches, No Dysphasia Pulmonary: No Dyspnea, No Cough Cardiovascular: No: Chest Pain, Palpitations, Lt Headedness Gastrointestinal: Nausea, Vomiting; No: Abdominal Pain, Diarrhea, Constipation Genitourinary: No Dysuria, No Frequency, No Incontinence, No Hematuria Musculoskeletal: No: neck pain, back pain Focused Exam Respiratory: Lungs Clear, Normal Breath Sounds, No Accessory Muscle Use, No Respiratory Distress Cardiovascular: Regular Rate, Rhythm, No Edema, No Gallop, No Murmur, Normal Peripheral Pulses Peripheral Pulses: 2+ Carotid (R), 2+ Carotid (L), 2+ Dorsalis Pedis (R), 2+ Left Dors-Pedis (L), 2+ Radial Pulses (R), 2+ Radial Pulses (L) Skin: normal color, warm/dry Objective Exam Vital Signs Date Time Temp Pulse Resp B/P (MAP) Pulse Ox O2 Delivery O2 Flow Rate FiO2 11/23/19 08:00 Nasal Cannula 2.00 11/23/19 07:49 36.8 78 18 121/78 (92) 95 Nasal Cannula 2.00 11/23/19 00:00 36.4 73 18 117/73 (88) 100 Nasal Cannula 2.00 11/22/19 21:52 Nasal Cannula 2.00 11/22/19 20:30 Nasal Cannula 2.00 11/22/19 19:09 36.0 107 20 110/62 (78) 99 Nasal Cannula 2.00 11/22/19 16:14 37.2 85 20 115/68 (84) 98 Nasal Cannula 2.00 11/22/19 12:00 37.2 108 20 121/78 (92) 99 Nasal Cannula 2.00 I & O 11/23/19 07:00 Intake Total 500 ml Output Total 350 ml Balance 150 ml Capillary Refill : Less Than 3 Seconds General Appearance: Mild Distress HEENT: PERRL/EOMI Neck: Normal Inspection, Non Tender, Supple Respiratory: Lungs Clear, Normal Breath Sounds, No Accessory Muscle Use, No Respiratory Distress, Decreased Breath Sounds Cardiovascular: Regular Rate, Rhythm, No Edema, No Gallop, No Murmur, Normal Peripheral Pulses Peripheral Pulses: 2+ Carotid (R), 2+ Carotid (L), 2+ Dorsalis Pedis (R), 2+ Left Dors-Pedis (L), 2+ Radial Pulses (R), 2+ Radial Pulses (L) Gastrointestinal: normal bowel sounds, non tender, soft, no pulsatile mass Extremity: Normal Capillary Refill, Normal Inspection, Normal Range of Motion, Non Tender, No Calf Tenderness, No Pedal Edema Neurologic/Psychiatric: Alert, Oriented x3, No Motor/Sensory Deficits, feed miller II- XII Norm as Tested Skin: Normal Color, Warm/Dry Results Lab Microbiology 11/20/19 Urine Culture - Preliminary, Resulted Mixed Bacterial Claritza With Escherichia coli 11/20/19 Influenza Types A,B Antigen (LEONEL) - Final, Complete Assessment/Plan Assessment/Plan Assessment/Plan UTI + Sepsis: - Continue IV [id number] - NS IVF 75 mL/hr - Incentive Spirometry Esophagostomy (Spits Tube): - NPO - Swabs to hydrate mouth - Monitor for bloody drainage PEG Tube And Duodenal Tube: - Dressing change daily - Continue PEJ Tube feedings Hypokalemia: - IV Potassium 40 mEq/L at a rate of 10 mEq/hr - BMP in the morning Clinical Quality Measures DVT/VTE Risk/Contraindication: Risk Factor Score Per Nursin RFS Level Per Nursing on Admit: 2=Moderate TODD CR DO 11/23/19 1210: Subjective Time Seen by a Provider: 09:42 Subjective/Events-last exam Pt seen and examined, main complaint is that her mouth is dry. Nurse called me last night because of "frothy bloody discharge" coming out around upper tube. Nurse from today states she has not seen any further discharge. Review of Systems General: Fatigue, Malaise Pulmonary: No Dyspnea, No Cough Cardiovascular: No: Chest Pain, Palpitations Gastrointestinal: Nausea, Vomiting; No: Abdominal Pain Objective Exam General Appearance: Chronically ill, Mild Distress HEENT: PERRL/EOMI; No Moist Mucous Membranes (dry) Respiratory: Lungs Clear, Normal Breath Sounds, No Accessory Muscle Use, No Respiratory Distress Cardiovascular: Regular Rate, Rhythm, No Murmur Gastrointestinal: non tender, soft, other (upper tube (probable spit fistula) has dried blood, but nothing actively draining) Assessment/Plan Assessment/Plan Assessment/Plan Hypokalemia - replace Esophagostomy tube - monitor Malnutrition - continue PEG tube feedings with increased Protein Supervisory-Addendum Brief Verification & Attestation Participated in pt care: history, MDM, physical Personally performed: exam, history, MDM Care discussed with: Medical Student Procedures: n/a Verification and Attestation of Medical Student E/M Service A medical student performed and documented this service in my presence. I reviewed and verified all information documented by the medical student and made modifications to such information, when appropriate. I personally performed the physical exam and medical decision making. Todd Cr, Nov 23, 2019,12:10 LEVI HUI [facility] Nov 23, 2019 11:50 TODD CR DO Nov 23, 2019 12:10
--- NOTE | 2019-11-23 12:31 | Progress Note - Hospitalist ---
Subjective HPI/CC On Admission Date Seen by Provider: Nov 23, 2019 Time Seen by Provider: 11:00 Subjective/Events-last exam No evidence of obstruction per evaluation from Dr Ley Appreciate Dr Jil Bragg has no other options for her Pain is an issue so I evaluate her pain meds and change her hydrocodone to more frequent since that is what she feels helps her the most instead of Fentanyl Multiple family members in the room Patient reports she was on Hospice after she left since there was no other option I know patient from last year in IRF Very difficult case considering no easy answer or resolution Feels like her mouth is dry Very difficult situation After rounds at 1900 nurse reports to me that she refusing her tube feedings to run and no normal saline IVF so I told nurse to document refusal which does not help the situation with non-compliance Review of Systems General: Fatigue Gastrointestinal: Nausea, Vomiting, Abdominal Pain Objective Exam Vital Signs Vital Signs Date Time Temp Pulse Resp B/P (MAP) Pulse Ox O2 Delivery O2 Flow Rate FiO2 11/23/19 15:49 38.2 81 16 112/70 (84) 94 Nasal Cannula 2.00 Capillary Refill : Less Than 3 Seconds General Appearance: No Apparent Distress, Anxious, Chronically ill, Cachetic Respiratory: Lungs Clear Cardiovascular: Regular Rate, Rhythm Neurologic/Psychiatric: Alert, Oriented x3, No Motor/Sensory Deficits, Depressed Affect Skin: Normal Color, Warm/Dry Results/Procedures Lab Patient resulted labs reviewed. Assessment/Plan Assessment and Plan Assess & Plan/Chief Complaint Assessment: UTI Thoracic esophagostomy, gastrostomy and Jejunostomy tube Hx of: (1) Paraesophageal hiatal hernia s/p repair in [place] after [address] Milner then sent to last year and sent home on Hospice now revoked hospice (3) Severe chronic debility (4) Protein-energy malnutrition (5) Hx MRSA pneumonia (6) HTN (7) Chronic epigastric pain (8) GERD (gastroesophageal reflux disease) (9) Anemia (10) Thrombocytosis (11)Severe dysphagia requiring J-tube (12) Severe depression Plan: UTI Tx Appreciate all of surgeons' help Very difficult situation since appears to have no resolution Increase pain meds Diagnosis/Problems Diagnosis/Problems (1) UTI (urinary tract infection) Status: Acute Qualifiers: Urinary tract infection type: acute cystitis Hematuria presence: with hematuria Qualified Codes: N30.01 - Acute cystitis with hematuria (2) Debility Status: Chronic (3) Gastrostomy tube in place (4) Jejunostomy present (5) Cachexia Status: Acute Clinical Quality Measures DVT/VTE Risk/Contraindication: Risk Factor Score Per Nursin RFS Level Per Nursing on Admit: 2=Moderate BISHOP VAN DO Nov 23, 2019 12:31
[2019-11-23] MEDS: POTASSIUM CL 10MEQ/50ML IVPB 50 ML IV SCH ×3 (13:56→23:09)
--- NOTE | 2019-11-23 15:00 | NUR ---
Patient c/o nausea at this time, tube feedings stopped at this time. PRN medication administered as ordered.
[2019-11-23] MEDS: ONDANSETRON 4 MG/2 ML (SDV) Z0FRAN IVP PRN (15:03)
[2019-11-23 15:49] VITALS: BP 112/70
[2019-11-23] MEDS: NS IV 1000 ML 1,000 ML IV SCH (16:00)
[2019-11-23] MEDS: ENOXAPARIN 30 MG/0.3 ML (LOVENOX) SYR SC SCH (18:18)
--- NOTE | 2019-11-23 19:03 | NUR ---
Patient c/o of iv burning while potassium running, iv removed and, Iv Restarted, NS and potassium restarted. Patient later c/o IV burning. potassium stopped, NS continued to infuse. Patient told RN that she wants the fluids stopped due to burning and IV taken out. RN stopped fluids per patient request. RN told patient that IV was still able to flush, and we would attempt to look for another IV site. Patient refused for another IV site. Patient states to RN that she wants to go home. RN told patient we could talk to doctor in am about this when her family is here. Patient told RN no, she wanted to go home now. Patient called daughter to come in, daughter came in to talk with patient.
[2019-11-23] MEDS: PROMETHAZINE INJ 25 MG/ML (PHENERGAN) AMP IVP PRN (20:03)
[2019-11-23] MEDS: cefTRIAXone 1,000 MG/SWFI 10 ML IV PUSH IV SCH ×2 (20:08)
--- NOTE | 2019-11-23 21:22 | NUR ---
NOTIFIED DR. VAN OF PATIENT'S RELIEVED ANXIETY AND ALLOWING THIS RN TO RESTART IV FLUID, POTASSIUM, AND ANTIBIOTIC. VOICED CONCERNS ON ATIVAN ORDER BEING Q6 AND PATIENT ALREADY EXHIBITING S/S OF INCREASED ANXIETY ONLY AFTER 1 HOUR AFTER GIVING THE MEDICATION AND FELT THAT IT WASN'T GOING TO BE ABLE TO MAKE IT ANOTHER 5 HOURS. ORDER CHANGED FROM Q6 TO Q2 PER DR. VAN ORDER.
--- NOTE | 2019-11-23 23:07 | NUR ---
SECOND BAG OF POTASSIUM FINISHED INFUSING. PT REFUSES ANY ADDITIONAL BAGS OF POTASSIUM AT THIS TIME.
[2019-11-24 00:07] VITALS: BP 118/68
[2019-11-24] MEDS: NS IV 1000 ML 1,000 ML IV SCH ×3 (00:45→19:38)
[2019-11-24 05:38] LABS: BASOPHILS % (AUTO) 0 % (0-10); EOSINOPHILS # (AUTO) 0.2 10^3/uL (0.0-0.3); EOSINOPHILS % (AUTO) 3 % (0-10); HEMATOCRIT 32 % (35-52); HEMOGLOBIN 10.3 G/DL (11.5-16.0); LYMPHOCYTES # (AUTO) 2.5 X 10^3 (1.0-4.0); LYMPHOCYTES % (AUTO) 33 % (12-44); MEAN CORPUSCULAR HEMOGLOBIN 31 PG (25-34); MEAN CORPUSCULAR HGB CONC 33 G/DL (32-36); MEAN CORPUSCULAR VOLUME 96 FL (80-99); MEAN PLATELET VOLUME 8.4 FL (7.4-10.4); MONOCYTES # (AUTO) 0.5 X 10^3 (0.0-1.0); MONOCYTES % (AUTO) 6 % (0-12); NEUTROPHILS # (AUTO) 4.3 X 10^3 (1.8-7.8); NEUTROPHILS % (AUTO) 57 % (42-75); PLATELET COUNT 201 10^3/uL (130-400); WHITE BLOOD COUNT 7.5 10^3/uL (4.3-11.0)
[2019-11-24 05:59] LABS: ALANINE AMINOTRANSFERASE 88 U/L (0-55); ALBUMIN 2.8 GM/DL (3.2-4.5); ALKALINE PHOSPHATASE 51 U/L (40-136); BILIRUBIN,TOTAL 0.5 MG/DL (0.1-1.0); BUN/CREATININE RATIO 12; CALCIUM 7.9 MG/DL (8.5-10.1); CARBON DIOXIDE 23 MMOL/L (21-32); CHLORIDE 108 MMOL/L (98-107); CREATININE SERUM 0.57 MG/DL (0.60-1.30); GFR ESTIMATED > 60; GLUCOSE 83 MG/DL (70-105); POTASSIUM 3.7 MMOL/L (3.6-5.0); SODIUM 137 MMOL/L (135-145); TOTAL PROTEIN 4.9 GM/DL (6.4-8.2)
--- NOTE | 2019-11-24 06:06 | NUR ---
PT REFUSES ANY AND ALL TUBE FEEDINGS THIS SHIFT.
[2019-11-24 08:15] VITALS: BP 153/88
--- NOTE | 2019-11-24 10:22 | NUR ---
[facility] REFERRAL DONE PER DR. VAN REQUEST. SPOKE WITH GRETEL LE RN @ [phone].
--- NOTE | 2019-11-24 10:33 | Progress Note - Surgery ---
[facility] 11/24/19 1033: Subjective Date Seen by a Provider: Nov 24, 2019 Time Seen by a Provider: 09:55 Subjective/Events-last exam Ms. Cooley was somnolent, and in mild discomfort but easily arousalable during interview. Shes states that her nausea has improved since yesterday. She states that she does have some abdominal discomfort that is present in her LLQ. States that she doesn't notice anything that exacerbates it. She states that she has no issues stooling or voiding. Review of Systems General: Fatigue HEENT: No Head Aches, No Dysphasia, No Sore Throat Pulmonary: No Dyspnea, No Cough Cardiovascular: No: Chest Pain, Palpitations, Lt Headedness Gastrointestinal: Abdominal Pain (LLQ); No: Nausea, Vomiting, Diarrhea, Constipation Genitourinary: No Dysuria, No Frequency, No Incontinence Focused Exam Respiratory: Lungs Clear, Normal Breath Sounds, No Accessory Muscle Use, No Respiratory Distress Cardiovascular: Regular Rate, Rhythm, No Edema, No Gallop, No Murmur, Normal Peripheral Pulses Peripheral Pulses: 2+ Carotid (R), 2+ Carotid (L), 2+ Dorsalis Pedis (R), 2+ Left Dors-Pedis (L), 2+ Radial Pulses (R), 2+ Radial Pulses (L) Skin: normal color, warm/dry, other (PEJ Tube and Spits Fistula Drainage Tube showed no erythema) Objective Exam Vital Signs Date Time Temp Pulse Resp B/P (MAP) Pulse Ox O2 Delivery O2 Flow Rate FiO2 11/24/19 08:15 37.1 82 18 153/88 (109) 100 Nasal Cannula 2.00 11/24/19 08:00 Nasal Cannula 2.00 11/24/19 00:07 37.1 71 17 118/68 (85) 96 Nasal Cannula 2.00 11/23/19 20:00 Nasal Cannula 2.00 11/23/19 15:49 38.2 81 16 112/70 (84) 94 Nasal Cannula 2.00 I & O 11/24/19 07:00 Intake Total 1110 ml Output Total 375 ml Balance 735 ml Capillary Refill : Less Than 3 SecondsLess Than 3 Seconds General Appearance: Anxious, Chronically ill, Cachetic, Moderate Distress HEENT: PERRL/EOMI; No Moist Mucous Membranes (dry) Neck: Normal Inspection, Non Tender, Supple Respiratory: Lungs Clear, Normal Breath Sounds, No Accessory Muscle Use, No Respiratory Distress Cardiovascular: Regular Rate, Rhythm, No Edema, No Gallop, No Murmur, Normal Peripheral Pulses Peripheral Pulses: 2+ Carotid (R), 2+ Carotid (L), 2+ Dorsalis Pedis (R), 2+ Left Dors-Pedis (L), 2+ Radial Pulses (R), 2+ Radial Pulses (L) Gastrointestinal: soft, tenderness (LLQ), other (upper tube (probable spit fis ignacio) has dried blood, but nothing actively draining) Extremity: Normal Capillary Refill, Normal Inspection, Normal Range of Motion, Non Tender, No Calf Tenderness, No Pedal Edema Neurologic/Psychiatric: Alert, Oriented x3, No Motor/Sensory Deficits, Depressed Affect Skin: Normal Color, Warm/Dry Results Lab Laboratory Tests 11/24/19 05:21: White Blood Count 7.5, Red Blood Count 3.27L, Hemoglobin 10.3L, Hematocrit 32L, Mean Corpuscular Volume 96, Mean Corpuscular Hemoglobin 31, Mean Corpuscular Hemoglobin Concent 33, Red Cell Distribution Width 12.0, Platelet Count 201, Mean Platelet Volume 8.4, Neutrophils (%) (Auto) 57, Lymphocytes (%) (Auto) 33, Monocytes (%) (Auto) 6, Eosinophils (%) (Auto) 3, Basophils (%) (Auto) 0, Neutr ophils # (Auto) 4.3, Lymphocytes # (Auto) 2.5, Monocytes # (Auto) 0.5, Eosinophils # (Auto) 0.2, Basophils # (Auto) 0.0, Sodium Level 137, Potassium Level 3.7, Chloride Level 108H, Carbon Dioxide Level 23, Anion Gap 6, Blood Urea Nitrogen 7, Creatinine 0.57L, Estimat Glomerular Filtration Rate > 60, BUN/Creatinine Ratio 12, Glucose Level 83, Calcium Level 7.9L, Corrected Calcium 8.9, Total Bilirubin 0.5, Aspartate Amino Transf (AST/SGOT) 55H, Alanine Aminotransferase (ALT/SGPT) 88H, Alkaline Phosphatase 51, Total Protein 4.9L, Albumin 2.8L Microbiology 11/20/19 Urine Culture - Preliminary, Resulted Mixed Bacterial Claritza With Escherichia coli 11/20/19 Influenza Types A,B Antigen (LEONEL) - Final, Complete Assessment/Plan Assessment/Plan Assessment/Plan Malnutrition: continue feeding through PEJ Tube Multiple Tubes: monitor drainage and patency Hypokalemia: resolved Clinical Quality Measures DVT/VTE Risk/Contraindication: Risk Factor Score Per Nursin RFS Level Per Nursing on Admit: 2=Moderate TODD BRAGG DO 11/24/19 1356: Subjective Time Seen by a Provider: 13:09 Subjective/Events-last exam Pt seen and examined, no changes and she has no complaints. Nursing called me twice last night regarding skin irritation around (I believe) Jejunal tube site. Review of Systems General: Fatigue, Malaise Pulmonary: No Dyspnea, No Cough Cardiovascular: No: Chest Pain, Palpitations Gastrointestinal: Abdominal Pain (mostly at site of skin irritation); No: Nausea, Vomiting Objective Exam General Appearance: Chronically ill, Cachetic Respiratory: Lungs Clear, Normal Breath Sounds Cardiovascular: Regular Rate, Rhythm, No Murmur Gastrointestinal: soft, tenderness (LLQ), other (lower tube with erythema probably from skin irritation due to leaking gastric/enteric contents) Assessment/Plan Assessment/Plan Assessment/Plan Jejunostomy Tube complications Instructed nurse, pt and family member that the tube must be snug and wafer cinched down so that nothing can get out around tube. Wound care may have some special tegaderm to help heal the skin; will try and have them see pt. Supervisory-Addendum Brief Verification & Attestation Participated in pt care: history, MDM, physical Personally performed: exam, history, MDM Care discussed with: Medical Student Procedures: n/a Verification and Attestation of Medical Student E/M Service A medical student performed and documented this service. I then reviewed and verified all information documented by the medical student and made modifications to such information, when appropriate. I personally performed a physical exam, medical decision making and then discussed any differences between the notes and made revisions as necessary to create one note. Todd Bragg , 11/24/19 , 13:56 LEVI [facility] Nov 24, 2019 10:33 TODD BRAGG DO Nov 24, 2019 13:56
--- NOTE | 2019-11-24 10:50 | NUR ---
DECADRON 4MG IV AND ZOFRAN 4MG IV FOR C/O NAUSEA. TEMP 100.4.
[2019-11-24] MEDS: ONDANSETRON 4 MG/2 ML (SDV) Z0FRAN IVP PRN (10:52)
[2019-11-24] MEDS: DEXAMETHASONE 4 MG/ML SDV (DECADRON) IV PRN (10:52)
[2019-11-24 11:08] VITALS: BP 133/86
--- NOTE | 2019-11-24 11:48 | NUR ---
LOWER PEG LEAKING GREEN BILE. DRESSING CHANGED. PT REQUESTING TF @ 10CC/HR. CONNECTED REQUESTED.
--- NOTE | 2019-11-24 14:48 | NUR ---
ABD DRESSING AROUND LOWER PEG SATURATED WITH GREEN BILE. SKIN RED AND EXCORIATED. CLEANSED AND INZO APPLIED. IV LEAKING. REMOVED RT HAND. RESTARTED WITH #22 LEFT WRIST X 1 STICK.
--- NOTE | 2019-11-24 15:21 | Progress Note - Hospitalist ---
Subjective HPI/CC On Admission Date Seen by Provider: Nov 24, 2019 Time Seen by Provider: 10:30 Subjective/Events-last exam Patient refusing tube feedings and potassium Patient very nauseated I spoke to [facility] in-depth and after the review of records they recommended outpatient CTS appt if she chooses to go that route instead of hospice and appt can be made by calling [phone]. They noted the last visit they saw her in clinic she left AMA after resident saw her before attending saw her. Patient not cooperative with most interventions. While Adriane RN was with me she agreed if [facility] would not take her in transfer she would sign up for hospice again. All studies and labs and images have been reviewed by [facility]. Review of Systems General: Fatigue Gastrointestinal: Nausea, Vomiting, Abdominal Pain Objective Exam Vital Signs Vital Signs Date Time Temp Pulse Resp B/P (MAP) Pulse Ox O2 Delivery O2 Flow Rate FiO2 11/24/19 11:08 38.0 85 18 133/86 (102) 95 Nasal Cannula 2.00 Capillary Refill : Less Than 3 SecondsLess Than 3 Seconds General Appearance: WD/WN, Chronically ill, Cachetic, Mild Distress Respiratory: Lungs Clear Cardiovascular: Regular Rate, Rhythm Neurologic/Psychiatric: Alert Results/Procedures Lab Laboratory Tests 11/24/19 05:21 Patient resulted labs reviewed. Assessment/Plan Assessment and Plan Assess & Plan/Chief Complaint Assessment: UTI Thoracic esophagostomy, gastrostomy and Jejunostomy tube Hx of: (1) Paraesophageal hiatal hernia s/p repair in [place] after [address] Milner then sent to [facility] last year and sent home on Hospice now revoked hospice (3) Severe chronic debility (4) Protein-energy malnutrition (5) Hx MRSA pneumonia (6) HTN (7) Chronic epigastric pain (8) GERD (gastroesophageal reflux disease) (9) Anemia (10) Thrombocytosis (11)Severe dysphagia requiring J-tube (12) Severe depression Plan: UTI Tx Appreciate all of surgeons' help Very difficult situation since appears to have no resolution Increase pain meds [facility] declines inpatient transfer and recommended outpatient f/u Patient really needs Hospice there is no other option for her and we have evaluated other avenues Diagnosis/Problems Diagnosis/Problems (1) UTI (urinary tract infection) Status: Acute Qualifiers: Urinary tract infection type: acute cystitis Hematuria presence: with hematuria Qualified Codes: N30.01 - Acute cystitis with hematuria (2) Debility Status: Chronic (3) Gastrostomy tube in place (4) Jejunostomy present (5) Cachexia Status: Acute Clinical Quality Measures DVT/VTE Risk/Contraindication: Risk Factor Score Per Nursin RFS Level Per Nursing on Admit: 2=Moderate BISHOP VAN DO Nov 24, 2019 15:21
--- NOTE | 2019-11-24 16:45 | NUR ---
FENTANYL 50 IV FOR GENERAL DISCOMFORT.
[2019-11-24 16:47] VITALS: BP 141/84
[2019-11-24] MEDS: fentaNYL INJECTION 100 MCG/2 ML AMP IV PRN ×2 (16:50→20:02)
[2019-11-24] MEDS: ENOXAPARIN 30 MG/0.3 ML (LOVENOX) SYR SC SCH (16:50)
[2019-11-24 19:42] VITALS: BP 139/82
[2019-11-24] MEDS: cefTRIAXone 1,000 MG/SWFI 10 ML IV PUSH IV SCH ×2 (20:16)
[2019-11-24] MEDS: LORazepam INJ 2 MG/ML (ATIVAN) VIAL IVP PRN (22:09)
[2019-11-24] MEDS: HYDROcodone/APAP 7.5MG-325 MG/15 ML (LORTAB) UDC PO PRN (22:10)
[2019-11-24] MEDS: FENTANYL PATCH REMOVAL TP SCH (22:53)
[2019-11-24] MEDS: fentaNYL PATCH 25 MCG (DURAGESIC) TD SCH (22:54)
--- NOTE | 2019-11-24 22:57 | NUR ---
PTS FENTANYL PATCH ON RT UPPER ARM WAS TAPED TO ARM PRIOR AND FALLING OFF OF PATIENT. THIS WAS OBSERVED DURING NURSING CARE. SECTIONIZER, YUSEF, IN ROOM WHEN THIS WAS DISCOVERED AND ADVISED THIS RN TO WASTE THE OLD PATCH, WHICH WAS NOT ATTACHED TO PTS SKIN AT ALL, AND TO ADMIN NEW PATCH. NEW PATCH WAS ADMIN TO RIGHT UPPER BACK.
[2019-11-25 00:02] VITALS: BP 141/61
[2019-11-25] MEDS: fentaNYL INJECTION 100 MCG/2 ML AMP IV PRN ×5 (02:08→15:38)
[2019-11-25 04:00] VITALS: BP 121/84
[2019-11-25] MEDS: ONDANSETRON 4 MG/2 ML (SDV) Z0FRAN IVP PRN ×2 (05:41→08:53)
[2019-11-25] MEDS: DEXAMETHASONE 4 MG/ML SDV (DECADRON) IV PRN ×2 (05:41→08:52)
[2019-11-25] MEDS: NS IV 1000 ML 1,000 ML IV SCH (05:42)
[2019-11-25 08:00] VITALS: BP 145/84
[2019-11-25] MEDS: HYDROcodone/APAP 7.5MG-325 MG/15 ML (LORTAB) UDC PO PRN ×2 (08:53→14:13)
[2019-11-25] MEDS ORDERED: FENT1PAT8 TD (10:08)
[2019-11-25] MEDS ORDERED: LORA-404 SL (10:08)
[2019-11-25] MEDS ORDERED: HYDR118S10 PEG (10:08)
--- NOTE | 2019-11-25 10:09 | Discharge Summary ---
Discharge Summary Hospital Course Was the Problem List Reviewed?: Yes Problems/Dx: (1) UTI (urinary tract infection) Status: Acute Qualifiers: Qualified Codes: N30.01 - Acute cystitis with hematuria (2) Debility Status: Chronic (3) Gastrostomy tube in place (4) Jejunostomy present (5) Cachexia Status: Acute Hospital Course Date of Admission: Nov 20, 2019 at 23:00 Admission Diagnosis : Family Physician/Provider: Jos Snow MD Date of Discharge: 11/25/19 Discharge Diagnosis: N/V acute on chronic, J-tube leakage, end of life status Hospital Course: Hospital Course: Pt had a lengthy hospital course for six days. She was admitted for recurrent nausea and considering her esophagus and failed Marisol and chronic gastrointestinal issues. Dr. Ley was consulted and performed a small bowel series showing no evidence for any obstruction and the nausea will continue because of the esophagus dysfunction between the esophagus and stomach there would be no resolution. I did inquire with [facility] and they offered an outpatient follow up if that was needed but she left [facility] last time she was seen so she definitely is a hospice candidate and I updated the social welfare research worker on this and all pain medicine was prescribed at [place]. Very poor prognosis. Labs and Pending Lab Test: Microbiology 11/20/19 Urine Culture - Final, Complete Mixed Bacterial Claritza With Escherichia coli Escherichia coli#2 11/20/19 Influenza Types A,B Antigen (LEONEL) - Final, Complete Home Meds Active Ativan (Lorazepam) 0.5 Mg Tablet 0.5 Mg SL Q6H PRN Fentanyl Patch 25 MCG (Fentanyl) 1 Each Patch.td72 25 Mcg TD Q72H Hydrocodone-Acetamn 7.5-325/15 (Hydrocodone/Acetaminophen) 118 Ml Solution 20 Ml PEG Q6H PRN Reported Prochlorperazine Maleate 10 Mg Tablet 10 Mg PO Q4H PRN Reglan (Metoclopramide HCl) 10 Mg Tablet 10 Mg PO QIDPCHS PRN Melatonin 3 Mg Tablet 3 Mg PO HS PRN Assessment/Pt Instructions [facility] 1 week Hospice enrollment Discharge Planning: <30 minutes discharge planning Discharge Instructions Discharge Diet: Tube Feeding Discharge Physical Examination Vital Signs Vital Signs Date Time Temp Pulse Resp B/P (MAP) Pulse Ox O2 Delivery O2 Flow Rate FiO2 11/25/19 08:00 36.6 82 18 145/84 (104) 97 Nasal Cannula 2.00 General Appearance: No Apparent Distress, WD/WN, Chronically ill, Cachetic Respiratory: Lungs Clear Cardiovascular: Regular Rate, Rhythm Neurologic/Psychiatric: Alert, Oriented x3, Depressed Affect Allergies: Coded Allergies: codeine (Unverified Adverse Reaction, Unknown, 09/03/18) severe stomach pain Discharge Summary Date of Admission Nov 20, 2019 at 23:00 Date of Discharge Discharge Date: Nov 25, 2019 Discharge Diagnosis Assessment: UTI Thoracic esophagostomy, gastrostomy and Jejunostomy tube Hx of: (1) Paraesophageal hiatal hernia s/p repair in [place] after [address] Milner then sent to [facility] last year and sent home on Hospice now revoked hospice (3) Severe chronic debility (4) Protein-energy malnutrition (5) Hx MRSA pneumonia (6) HTN (7) Chronic epigastric pain (8) GERD (gastroesophageal reflux disease) (9) Anemia (10) Thrombocytosis (11)Severe dysphagia requiring J-tube (12) Severe depression Plan: UTI Tx Appreciate all of surgeons' help Very difficult situation since appears to have no resolution Increase pain meds [facility] declines inpatient transfer and recommended outpatient f/u Patient really needs Hospice there is no other option for her and we have evaluated other avenues (1) UTI (urinary tract infection) Status: Acute Qualifiers: Qualified Codes: N30.01 - Acute cystitis with hematuria (2) Debility Status: Chronic (3) Gastrostomy tube in place (4) Jejunostomy present (5) Cachexia Status: Acute Clinical Quality Measures DVT/VTE Risk/Contraindication: Risk Factor Score Per Nursin RFS Level Per Nursing on Admit: 2=Moderate BISHOP VAN DO Nov 25, 2019 10:09
--- OUTSIDE RECORDS SUMMARY | 2019-11-25 11:41 | XMS REPORT | Encounter Summary ---
Author Author [facility] Organization [facility] Address Unknown Phone Unavailable Care Team Providers Care Vacuum Frame Operator Name Role Phone Jos Snow MD PCP Reason for Referral * Radiology Services (Routine) Referred By Contact Referred To Contact Status Reason Specialty Diagnoses / Procedures Jos Snow MD [address] [place] [address] [address] [address] [place] [address] No Auth Needed Radiology Diagnoses Gastrostomy malfunction (HCC) P rocedures IR GASTROSTOMY MA CHANGE GASTROSTOMY TUBE PERCUTANEOUS W/O GDNCE MA REPLACEMENT GASTRO-JEJUNOSTOMY TUBE PERCUTANEOUS Reason for Visit * Radiology Services (Routine) Referred By Contact Referred To Contact Status Reason Specialty Diagnoses / Procedures Jos Snow MD [address] [place] [address] [address] [place] [address] [place] [address] No Auth Needed Radiology Diagnoses Gastrostomy malfunction (HCC) P rocedures IR GASTROSTOMY MA CHANGE GASTROSTOMY TUBE PERCUTANEOUS W/O GDNCE MA REPLACEMENT GASTRO-JEJUNOSTOMY TUBE PERCUTANEOUS Encounter Details Care Team Description Date Type Department Siva Nichole MD [address] [address] [phone] Sanya Todd, RT(R)(),LRT Tami Smith RN Gastrostomy malfunction (HCC) 09/19/2019 [facility] [address] [place] [address] Social History Date Tobacco Use Types Packs/Day Years Used Never Smoker Smokeless Tobacco: Never Used Drinks/Week oz/Week Comments Alcohol Use Never Alcohol Habits Answer Date Recorded How often do you have a drink containing alcohol? Never 01/09/2019 How many drinks containing alcohol do you have on No t asked a typical day when you are drinking? How often do you have six or more drinks on one Not asked occasion? Sex Assigned at Date Recorded Not on file Industry Job Start Date Occupation Not on file Not on file Not on file Travel End Travel History Travel Start No recent travel history available. documented as of this encounter Last Filed Vital Signs Reading Time Taken Comments Vital Sign 136/81 09/19/2019 1:00 PM OUTPATIENT RECEPTIONIST Blood Pressure 111 09/19/2019 1:00 PM OUTPATIENT RECEPTIONIST Pulse 36.8 C (98.3 F) 09/19/2019 12:26 PM OUTPATIENT RECEPTIONIST Temperature - - Respiratory Rate 99% 09/19/2019 1:00 PM OUTPATIENT RECEPTIONIST Oxygen Saturation - - Inhaled Oxygen Concentration - - Weight - - Height - - Body Mass Index documented in this encounter Functional Status Date of Assessment Functional Status Response 02/11/2019 Does the patient have a hearing impairment: No 02/04/2019 Does the patient have a visual impairment: No 02/04/2019 Does the patient have impaired ambulation: No 02/04/2019 Does the patient have an activity of daily living No (ADL) impairment: 02/04/2019 Does the patient have an instrumental activity of No daily living (IADL) impairment: Date of Assessment Cognitive Status Response 02/04/2019 Does the patient have a cognitive impairment: No documented as of this encounter Discharge Instructions * Patient Instructions* Trisha Longoria RN - 09/19/2019 11:42 AM OUTPATIENT RECEPTIONIST INTERVENTIONAL RADIOLOGY G-J tube exchange AFTER THE PROCEDURE: Resume normal feeding and flushing routine. POST-PROCEDURE ACTIVITY: A responsible adult must drive you home. You should not drive, operate heav [email or web address] machinery or do anything that requires concentration for at least 24 hours aft er receiving sedation or anesthesia. It is recommended that a responsible adult be with you until morning. Avoid any exertion for one week. Exertion is lifting over 5 lbs., pushing, pulling or straining. Never use scissors, pins, or other sharp objects near the tube. Avoid bending, crimping or pulling on the tube. Be sure your hands are clean when touching near the tube site. Do not use ointments, creams or powders around the site unless ordered by you r physician. POST-PROCEDURE SITE CARE: Do not submerge the tube site underwater (no tub bath, swimming/hot tub, etc. ) DIET/MEDICATIONS: Avoid any foods or beverages containing alcohol for at least 24 hours after r eceiving sedation or anesthesia. WHEN TO CALL THE DOCTOR: (Please call [phone] for severe symptoms) You have bleeding from the tube site or through the tube. You are coughing up or vomiting blood or see blood in your stool. You have severe pain at the site or increasing abdominal discomfort. (Some so reness at the site is normal for a few days.) You have persistent nausea or vomiting. You have signs of infection such as: -Redness, swelling around the tube (a small area of redness is normal). -Fever greater than 101?F. -Pus-like drainage from around the tube. You have a blocked tube, leaking around the tube site or the tube falls out. For any of the above symptoms or for problems or concerns related to the procedu re, call [phone] for Monday-Monday 7-5. After-hours and weekends, ple ase call [phone] and ask for the Interventional Hvac Project Manager on-keegan fam ATIENT RECEPTIONIST documented in this encounter Medications at Time of Discharge Start Date End Date Medication Sig Dispensed Refills 03/06/2019 acetaminophen (TYLENOL) 20.3 mL by 240 mL 0 160 mg/5 mL oral solution Per J Tube route every 6 hours as needed. 03/06/2019 buPROPion (WELLBUTRIN) 75 one tablet by 60 tablet 0 mg tablet Per J Tube route twice daily. fentaNYL (DURAGESIC) 25 Apply 1 patch 0 mcg/hr patch to top of skin as directed every 72 hours hydrocodone/acetam/diet.s Take by 0 up.11 mouth. (HYDROCODONE-ACETAMINOPH- SUPP11 PO) 03/06/2019 lidocaine (LIDODERM) 5 % Apply one 30 patch 0 topical patch patch topically to affected area every 24 hours. Apply patch for 12 hours, then remove for 12 hours before repeating. 03/06/2019 LORazepam (ATIVAN) 2 Administer 10 mL 0 mg/ml injection 0.25-0.5 mL through vein every 3 hours as needed. 03/06/2019 mirtazapine (REMERON) 7.5 Take one 30 tablet 0 mg tablet tablet by mouth at bedtime daily. 03/06/2019 oxyCODONE (ROXICODONE) 1 Take 5 mL by 473 mL 0 mg/mL oral solution mouth every 3 hours as needed 03/06/2019 pantoprazole(#) Take 20 mL 20 mL 0 (PROTONIX) 2 mg/ml via feeding tube twice daily. 01/18/2019 polyethylene glycol 3350 one packet by 12 each 0 (MIRALAX) 17 g packet Per J Tube route daily. 03/06/2019 prochlorperazine 1-2 mL by SEE 10 mL 0 (COMPAZINE) 5 mg/mL ADMIN injection INSTRUCTIONS route every 6 hours as needed. 01/18/2019 senna/docusate 10 mL by Per 0 (SENOKOT-S) 8.8/50 mg /10 J Tube route mL solution twice daily. documented as of this encounter Progress Notes * Ramona Dennison RN - 09/19/2019 1:00 PM OUTPATIENT RECEPTIONIST Interventional Radiology Outpatient Scheduling Checklist 1. Name of Procedure(s): G-j tube exchange 2. Date of Procedure: 09/19/19 3. Arrival Time: 1200 4. Procedure Time: 1300 5. Correct Procedural Room Assignment: [facility] 6. Blood Thinners Triaged and instructed per protocol: Y/N/NA: NA Confirmed accurate instructions sent to patient: Y/N: NA 7. Procedure Order Verified: Y/N: Yes 9. Patient instructed to have a dray truck driver: Y/N/NA: Yes 10. Patient instructed on NPO status: Y/N/NA: Yes, pt uses tube feed for 100% nutrition. Instructed to hold feeds after 0700, clear liquids okay until 1100, N PO from 1100 until after procedure Confirmed accurate instructions sent to patient: Y/N: Yes 11. Specimen needed: Y/N/NA: NA Verified Order placed: Y/N: Yes 12. Allergies Verified: Y/N: Yes 13. Is there an Iodine Allergy: Y/N: No Does the Procedure Require contrast: Y/N: Yes If so, was the IR- Contrast Allergy Pre-Procedure Medication protocol ordered: Y /NA: NA 14. Does the patient have labs according to IR Pre-procedure Laboratory Paramet er policy: Y/N/NA: Yes, labs in G-drive If No, was the patient instructed to obtain labs prior to procedure: Y/N/NA: NA 15. Will the patient need to be admitted or have a possible admission: Y/N: No If yes, confirmed accurate instructions sent to patient: Y/N/NA: NA 16. Patient States Understanding: Y/N: Yes 17. History of VÍCTOR: Y/N: Pt on continuous O2 If yes, confirm request to bring CPAP sent to patient: Y/N/NA: NA 18. Patient declines electronic procedure instructions: Y/N: No, email sent ATIENT RECEPTIONIST * Trisha Longoria RN - 09/19/2019 12:56 PM OUTPATIENT RECEPTIONIST 1200: Pt in IR c/o tubes leaking. Pt noted to have G-tube, J-tube and T-tube (in the esophagus) 1215: LORETTA De Paz speaking with Dr. Nichole, who states we will not be able to repl justa T-tube, and we should call pt physicians to figure out POC. LORETTA Aguero spoke with Dr. Jos Snow ([phone]) pt's PCP, who was unable to help, because he is not following her drains. He is not sure who the appropriate physician to talk to about this. We will continue to reach out and try to figure out a POC. 1249: Paged Ricardo Arce MD (called back and states he is not sure next steps, a s he was the discharge physician in February, but was not the following physician po st hospitalization). 1253: linus Aguero RN on the phone with Dr. Escobar, who states that we s hould not remove/replace either the G-tube or J-tube, and instead, pt needs to h ave an esophogram. Pt's phone numbers were verified and given to the physician, who will have his national secretary call the patient to have an esophogram scheduled. [facility] also gave pt the phone number for direct to Dr. Fairchild's national secretary. LORETTA Aguero updated pt on POC. Pt and daughter Elizabeth deny questions at this time. This RN emptied T-tube. Will unhook pt and help d/c. ATIENT RECEPTIONIST documented in this encounter Miscellaneous Notes * Patient Education - Ramona Dennison RN - 09/19/2019 1:00 PM OUTPATIENT RECEPTIONIST Dear Ms. Eloise Cooley, Thank you for choosing [facility] Interventional Rad iology for your procedure. Your appointment information is listed below: Appointment Date: 09/19/19 Appointment Time: 1:00 PM Arrival Time: 12:00 PM Location: [facility]: [address] [place] [address] Parking: available in the front of the building INTERVENTIONAL RADIOLOGY PRE-PROCEDURE INSTRUCTIONS SEDATION You are scheduled for a procedure in Interventional Radiology with procedural se dation. Please follow these instructions and any direction from your Primary Ca re/Managing Physician. If you have questions about your procedure or need to re schedule please call [phone]. Medication Instructions: You may take the following medications with a small sip of water: <ALL MEDICATIONS> Diet Instructions: a. (8) hours before your procedure, stop your regular diet and start a clear liq uid diet. b. (6) hours before your procedure, (7:00 AM) discontinue tube feedings and chew ing tobacco. c. (2) hours before your procedure, (11:00 AM) discontinue clear liquids. You s hould have nothing by mouth. This includes GUM or CANDY. Day of Exam Instructions: 1. Bathe or shower with an antibacterial soap prior to your appointment. 2. If you have a history of Obstructive Sleep Apnea (VÍCTOR) bring your CPAP/BIPAP. 3. Bring a list of your current medications and the dosages. 4. Wear comfortable clothing and leave valuables at home. 5. Arrive (1) hour prior to your appointment. This time will be spent registeri ng, interviewing, assessing, educating and preparing you for the test. ? You will be with us anywhere from 30 minutes to 6 hours after your exam depend ing on your procedure. 6. You may be sedated for the procedure. A responsible adult must drive you home (no Uber, taxis or buses are allowed). If you do not have a dray truck driver we will be u nable to perform your procedure. 7. You will not be able to return to work or drive the same day if receiving sed ation. Interventional Radiology Team Perioperative and Procedural Scheduling Department [facility] ATIENT RECEPTIONIST documented in this encounter Plan of Treatment Not on filedocumented as of this encounter Procedures Comments Procedure Name Priority Date/Time Associated Diag nosis IR GASTROSTOMY Routine 09/19/2019 Gastrostomy mal function 1:10 PM OUTPATIENT RECEPTIONIST (HCC) documented in this encounter Results * IR GASTROSTOMY (09/19/2019 1:10 PM OUTPATIENT RECEPTIONIST) Specimen Narrative Performed At This IR procedure does not require a dictated result. [facility] Performing Organization Address City/State/[facility] Ph one Number [facility] documented in this encounter Visit Diagnoses Diagnosis Gastrostomy malfunction (HCC) Mechanical complication of gastrostomy documented in this encounter Additional Health Concerns Resolved Time Infection Noted Time SENIOR GEOLOGIST 02/09/2019 3:14 PM CDT MRSA 02/09/2019 3:15 PM CDT documented as of this encounter
--- OUTSIDE RECORDS SUMMARY | 2019-11-25 11:41 | XMS REPORT | Encounter Summary ---
Author Author [facility] Organization [facility] Address Unknown Phone Unavailable Care Team Providers Care Drapery Inspector Name Role Phone Jos Snow MD PCP Encounter Details Care Team Description Date Type Department Monisha Daily RN Injury of esophagus, sequela (Primary Dx ) 10/17/2019 Orders Only [facility] [address] [facility] [place] [address] Social History Date Tobacco Use Types Packs/Day [...] history available. documented as of this encounter Functional Status Date of Assessment [...] impairment: No documented as of this encounter Plan of Treatment Not on filedocumented as of this encounter Results * CHEST 2 VIEWS (10/17/2019 9:36 AM RIVET HEATER GAS) Specimen Impressions Performed At [facility] improved aeration of the left lung, with mil d residual left pleural [facility] fluid and/or thickening. Predominantly linear left basilar opaci ties, likely atelectasis or scarring. Finalized by TRISH DUNNE M.D. on 10/17 1:10 PM. Dictated by TRISH DUNNE M.D. on 10/17/2019 1:07 PM. Narrative Performed At CHEST 2 VIEWS [facility] Clinical history: esophageal perforatio n. Comparison: Chest radiograph 03/04/2019 Findings: Heart size within normal limits. A T-tu be is faintly visualized overlying the left hemithorax. Improved aeration of t he left lung, with mild residual left pleural thickening and/or fluid. Areas of atelectasis or scarring in the left lung base. No definite pneumothorax. Procedure Note Interface, Radiant Results - 10/17/2019 1:13 PM RIVET HEATER GAS CHEST 2 VIEWS Clinical history: esophageal perforation. Comparison: Chest radiograph 03/04/2019 Findings: Heart size within normal limits. A T-tube is faintly visualized overlying the left hemithorax. Improved aeration of the left lung, with mild residual left pleural thickening and/or fluid. Areas of atelectasis or scarring in the left lung base. No definite pneumothorax. IMPRESSION [facility] improved aeration of the left lung, with mild residual left pleural fluid and/or thickening. Predominantly linear left basilar opacities, likely atelectasis or scarring. Finalized by TRISH DUNNE M.D. on 10/17/2019 1:10 PM. Dictated by TRISH DUNNE M.D. on 10/17/2019 1:07 PM. Performing Organization Address City/State/Zipcode Ph one Number [facility] documented in this encounter Visit Diagnoses Diagnosis Injury of esophagus, sequela - Primary documented in this encounter Additional Health Concerns Resolved Time Infection Noted Time FACILITY REHAB DIRECTOR 02/09/2019 3:14 PM CDT MRSA 02/09/2019 3:15 PM CDT documented as of this encounter
--- OUTSIDE RECORDS SUMMARY | 2019-11-25 11:41 | XMS REPORT | Clinical Summary ---
Author Author [facility] Organization [facility] Address Unknown Phone Unavailable Care Team Providers Care Helper Steel Fabrication Name Role Phone Jos Snow MD PCP Source Comments Some departments are not documenting in the electronic medical record. If you d o not see the information that you expected, contact Release of Information in [facility] [employer] Information Management department at [phone] for further assistan ce in locating additional records.[facility] Allergies Comments Active Allergy Reactions Severity Noted Date Codeine VOMITING Low 01/09/2019 Medications End Date Status Medication Sig Dispensed Refills Start Date Active polyethylene glycol 3350 one packet by 12 each 0 (MIRALAX) 17 g packet Per J Tube 9 route daily. Active senna/docusate 10 mL by Per 0 (SENOKOT-S) 8.8/50 mg /10 J Tube route 9 mL solution twice daily. Active acetaminophen (TYLENOL) 20.3 mL by 240 mL 0 160 mg/5 mL oral solution Per J Tube 9 route every 6 hours as needed. Active oxyCODONE (ROXICODONE) 1 Take 5 mL by 473 mL 0 mg/mL oral solution mouth every 3 9 hours as needed Active pantoprazole(#) Take 20 mL 20 mL 0 (PROTONIX) 2 mg/ml via feeding 9 tube twice daily. Active buPROPion (WELLBUTRIN) 75 one tablet by 60 tablet 0 mg tablet Per J Tube 9 route twice daily. Active lidocaine (LIDODERM) 5 % Apply one 30 patch 0 0 topical patch patch 9 topically to affected area every 24 hours. Apply patch for 12 hours, then remove for 12 hours before repeating. Active LORazepam (ATIVAN) 2 Administer 10 mL 0 03/06 /201 mg/ml injection 0.25-0.5 mL 9 through vein every 3 hours as needed. Active mirtazapine (REMERON) 7.5 Take one 30 tablet 0 03/06/201 mg tablet tablet by 9 mouth at bedtime daily. Active prochlorperazine 1-2 mL by SEE 10 mL 0 03/06/2 01 (COMPAZINE) 5 mg/mL ADMIN 9 injection INSTRUCTIONS route every 6 hours as needed. Active hydrocodone/acetam/diet.s Take by 0 up.11 mouth. 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 Encephalopathy acute 02/11/2019 Stage II pressure ulcer 01/30/2019 Acute systolic CHF (congestive heart failure) 2018 Respiratory failure 01/27/2019 HTN (hypertension) 01/18/2019 S/P percutaneous endoscopic gastrostomy (PEG) tube pl acement 01/10/2019 Hypokalemia 01/10/2019 On mechanically assisted ventilation 01/10/2019 Moderate protein-calorie malnutrition 01/10/2019 S/P thoracotomy 01/10/2019 Back pain 01/09/2019 Hiatal hernia 01/09/2019 Moderate asthma without complication 01/09/2019 Esophageal injury 01/09/2019 H/O hiatal hernia Resolved Problems Problem Noted Date Resolved Date Hemorrhagic shock 02/11/2019 03/06/2019 Acute constipation 01/17/2019 01/18/2019 Vasogenic shock 01/10/2019 01/17/2019 SIRS (systemic inflammatory response syndrome) 01/10/2019 01/17/2019 Encounters Care Team Description Date Type Specialty Brodie Luciano 10/28/2019 Documentation Cardiothoracic Surg Brdoie Sebastian 10/18/2019 Documentation Cardiothoracic Surg Isma Prieto MD 10/17/2019 Office Visit Cardiothoracic Surg Stephanie García, SENIOR SOFTWARE DEVELOPMENT MANAGER-1ST GRADE TEACHER 10/17/2019 Hospital Radiology Encounter Monisha Daily, LORETTA Injury of esophagus, sequela (Primary Dx ) 10/17/2019 Orders Only Cardiothoracic Surg Monisha Santacruz RN Injury of esophagus, sequela (Primary Dx ) 09/27/2019 Orders Only Cardiothoracic Surg Siva Michaud MD Roos, Danny, RT(R)(),LRT Tami Smith RN Gastrostomy malfunction (HCC) 09/19/2019 Hospital Radiology Encounter from Last 3 Months Social History Date Tobacco Use Types Packs/Day [...] Travel Start No recent travel history available. Last Filed Vital Signs Reading Time Taken Comments Vital Sign 136/81 09/19/2019 1:00 PM PRINT GRAPHIC DESIGNER Blood Pressure 111 09/19/2019 1:00 PM PRINT GRAPHIC DESIGNER Pulse 36.8 C (98.3 F) 09/19/2019 12:26 PM PRINT GRAPHIC DESIGNER Temperature - - Respiratory Rate 99% 09/19/2019 1:00 PM PRINT GRAPHIC DESIGNER Oxygen Saturation - - Inhaled Oxygen Concentration 45.3 kg (99 lb 13.9 oz) 03/01/2019 5:00 AM CDT Weight 149.9 cm (4' 11.02") 02/11/2019 6:00 AM CDT Height 20.16 02/11/2019 6:00 AM CDT Body Mass Index Plan of Treatment Health Maintenance Due Date Last Done Comments DTAP/TDAP VACCINES (1 - 1973 Tdap) HIV SCREENING 1977 PHYSICAL (COMPREHENSIVE) 1980 EXAM CERVICAL CANCER SCREENING 1992 BREAST CANCER SCREENING 2002 COLORECTAL CANCER 2012 SCREENING SHINGLES RECOMBINANT 2012 VACCINE (1 of 2) INFLUENZA VACCINE 04/18/2019 HEPATITIS C SCREENING Completed 01/27/2019 Implants Device Identifier Shelf Expiration Date Model / Serial / L ot Implanted Type Area Manufactur [id number] 09/06/2023 [id number] / N/A / [id number] Kit Catheter 16cm 13.5fr Valentín Right: Neck COV IDIEN Elite Straight Extension - Sn/A SURGICAL Implanted: Qty: 1 on 02/06/2019 by DEVICES Jagdish Gillis MD at [facility] Procedures Comments Procedure Name Priority Date/Time Associated Diag nosis CHEST 2 VIEWS Routine 10/17/2019 Injury of esoph wai, 9:36 AM PRINT GRAPHIC DESIGNER sequela IR GASTROSTOMY Routine 09/19/2019 Gastrostomy mal function 1:10 PM PRINT GRAPHIC DESIGNER (HCC) from Last 3 Months Results * CHEST 2 VIEWS (10/17/2019 9:36 AM PRINT GRAPHIC DESIGNER) Specimen Impressions Performed At [facility] improved aeration [...] Interface, Radiant Results - 10/17/2019 1:13 PM PRINT GRAPHIC DESIGNER CHEST 2 VIEWS Clinical history: esophageal perforation. [...] on 10/17/2019 1:07 PM. Performing Organization Address [facility] one Number [facility] * IR GASTROSTOMY (09/19/2019 1:10 PM PRINT GRAPHIC DESIGNER) Specimen Narrative Performed At This IR procedure does not require a dictated result. [facility] Performing Organization Address [facility] one Number [facility]OS[facility] from Last 3 Months Additional Health Concerns Resolved Time Infection Noted Time COMPUTER SYSTEMS CONSULTANT 02/09/2019 3:14 PM CDT MRSA 02/09/2019 3:15 PM CDT Advance Directives Patient Spinner Iron Explanation Type Date Recorded Advance 01/17/2019 1:24 PM Directive/DPOA Date Inactivated Comments Code Status Date Activated 03/06/2019 2:26 PM DNAR-Comfort 03/04/2019 2:15 PM Measures Only 03/04/2019 2:15 PM Full Code 01/27/2019 2:59 PM Provider has discussed Code Status No, more discussi on w/Patient or Family? needed 01/18/2019 6:44 PM Full Code 01/09/2019 7:07 PM Provider has discussed Code Status No, more discussi on w/Patient or Family? needed
--- OUTSIDE RECORDS SUMMARY | 2019-11-25 11:41 | XMS REPORT | Encounter Summary ---
Author Author [facility] Organization [facility] Address Unknown Phone Unavailable Care Team Providers Care Business Planning Analyst Name Role Phone Jos Snow MD PCP Encounter Details Care Team Description Date Type Department Monisha Blanca RN Injury of esophagus, sequela (Primary Dx ) 09/27/2019 Orders Only [facility] [address] [facility] [place] [address] Social History Date Tobacco Use Types Packs/Day [...] impairment: No documented as of this encounter Miscellaneous Notes * Addendum Note - Monisha Blanca RN - 09/27/2019 3:49 PM IMPORT COORDINATOR Addended by: MONISHA BLANCA on: 11/18/2019 10:54 AM Modules accepted: Orders RT COORDINATOR documented in this encounter Plan of Treatment Not on filedocumented as of this encounter Visit Diagnoses Diagnosis Injury of esophagus, sequela - Primary documented in this encounter Additional Health Concerns Resolved Time Infection Noted Time RETAIL INVENTORY CONTROL CLERK 02/09/2019 3:14 PM CDT MRSA 02/09/2019 3:15 PM CDT documented as of this encounter
--- OUTSIDE RECORDS SUMMARY | 2019-11-25 11:41 | XMS REPORT | Encounter Summary ---
Author Author [facility] Organization [facility] Address Unknown Phone Unavailable Care Team Providers Care College Dean Name Role Phone Jos Snow MD PCP Reason for Visit * Reason Comments Follow Up eval for esophageal perfora tion with T-tube Encounter Details Care Team Description Date Type Department Isma Escobar MD [address] [address] 10/17/2019 Office Visit The [facility] [address] [id number] Social History Date Tobacco Use Types Packs/Day [...] filedocumented as of this encounter Visit Diagnoses Not on filedocumented in this encounter Additional Health Concerns Resolved Time Infection Noted Time LIVESTOCK NUTRITIONIST 02/09/2019 3:14 PM CDT MRSA 02/09/2019 3:15 PM CDT documented as of this encounter
--- OUTSIDE RECORDS SUMMARY | 2019-11-25 11:41 | XMS REPORT | Encounter Summary ---
Author Author [facility] Organization [facility] Address Unknown Phone Unavailable Care Team Providers Care Latex Foam Worker Name Role Phone Jos Snow MD PCP Encounter Details Care Team Description Date Type Department Brodie Luciano 10/28/2019 Documentation The [id number] [place] [address] Social History Date Tobacco Use Types Packs/Day [...] impairment: No documented as of this encounter Progress Notes * Brodie Luciano - 10/28/2019 11:15 AM GENERAL FOUNDRY WORKER Second attempt made to reach patient to reschedule lung cancer screening. Jen santamaria was scheduled for 10/17/2019 but left appointment after check-in. Voicemail le ft. Routing to RN to send letter to patient. RAL FOUNDRY WORKER documented in this encounter Plan of Treatment Not on filedocumented as of this encounter Visit Diagnoses Not on filedocumented in this encounter Additional Health Concerns Resolved Time Infection Noted Time PHOTOGRAPHIC ENLARGER OPERATOR 02/09/2019 3:14 PM CDT MRSA 02/09/2019 3:15 PM CDT documented as of this encounter
--- OUTSIDE RECORDS SUMMARY | 2019-11-25 11:41 | XMS REPORT | Encounter Summary ---
Author Author [facility] Organization [facility] Address Unknown Phone Unavailable Care Team Providers Care Locomotive Mechanic Name Role Phone Jos Snow MD PCP Encounter Details Care Team Description Date Type Department Brodie Luciano 10/18/2019 Documentation The [id number] [place] [address] Social History Date Tobacco Use Types Packs/Day [...] encounter Progress Notes * Brodie Luciano - 10/18/2019 3:27 PM CASH REGISTER MECHANIC Patient walked out of appointment on 10/17/2019. Attempted to reach patient via telephone. unable to leave message. Will try to reach patient again in 1 week. REGISTER MECHANIC documented in this encounter Plan of Treatment Not on filedocumented as of this encounter Visit Diagnoses Not on filedocumented in this encounter Additional Health Concerns Resolved Time Infection Noted Time SUPERVISOR FEED HOUSE 02/09/2019 3:14 PM CDT MRSA 02/09/2019 3:15 PM CDT documented as of this encounter
--- OUTSIDE RECORDS SUMMARY | 2019-11-25 11:41 | XMS REPORT | Encounter Summary ---
Author Author [facility] Organization [facility] Address Unknown Phone Unavailable Care Team Providers Care Auto Dismantler Name Role Phone Jos Snow MD PCP Encounter Details Care Team Description Date Type Department Stephanie Lara, SUPERVISOR CIGAR PROCESSING-FAMILY PROTECTION SPECIALIST [address] [facility] [id number] [place] [address] [phone] 10/17/2019 [facility] [address] [address] Social History Date Tobacco Use Types Packs/Day [...] impairment: No documented as of this encounter Medications at Time of Discharge [...] twice daily. documented as of this encounter Plan of Treatment Not on filedocumented as of this encounter Procedures Comments Procedure Name Priority Date/Time Associated Diag nosis CHEST 2 VIEWS Routine 10/17/2019 Injury of russoph wai, 9:36 AM VE TEACHER sequela documented in this encounter Results * CHEST 2 VIEWS (10/17/2019 9:36 AM VE TEACHER) Specimen Impressions Performed At [facility] improved aeration [...] Interface, Radiant Results - 10/17/2019 1:13 PM VE TEACHER CHEST 2 VIEWS Clinical history: esophageal perforation. [...] Visit Diagnoses Diagnosis Injury of esophagus, sequela documented in this encounter Additional Health Concerns Resolved Time Infection Noted Time PUBLIC HEALTH WORKER 02/09/2019 3:14 PM CDT MRSA 02/09/2019 3:15 PM CDT documented as of this encounter
--- OUTSIDE RECORDS SUMMARY | 2019-11-25 11:42 | XMS REPORT | Encounter Summary ---
Author Author [facility] Organization [facility] Address Unknown Phone Unavailable Care Team Providers Care Air Compressor Mechanic Name Role Phone No Pcp, Na PCP Unavailable Reason for Referral * Radiology Services (Routine) Referred By Contact Referred To Contact Status Reason Specialty Diagnoses / Procedures Jos Snow MD [address] [place] [address] [place] [place] [address] [place] [address] No Auth Needed Radiology Diagnoses Gastrostomy malfunction (HCC) P rocedures IR GASTROSTOMY SD CHANGE GASTROSTOMY TUBE PERCUTANEOUS W/O GDNCE SD REPLACEMENT GASTRO-JEJUNOSTOMY TUBE PERCUTANEOUS Encounter Details Care Team Description Date Type Department Ramona Dennison RN Gastrostomy malfunction (HCC) (Primary D x) 08/13/2019 Orders Only The [facility] Radiology [address] [address] Social History Date Tobacco Use Types Packs/Day [...] filedocumented as of this encounter Results * IR GASTROSTOMY (09/19/2019 1:10 PM EXAM PROCTOR) Specimen Narrative Performed At This IR procedure does not require a dictated result. 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
--- OUTSIDE RECORDS SUMMARY | 2019-11-25 11:46 | XMS REPORT | Continuity of Care Document ---
Author Organization Unknown Address Unknown Phone Unavailable Allergies Active Description Code Type Severity Reaction Onset Reported/Identified Relationship to Patient Clinical Status Yes seasonal seasonal Un known N/A 11/28/2014 Yes No Known Drug Allergies [id number] Drug Allergy Unknown N/A 06/13/2016 Yes codeine [id number] Drug Allergy Unknown N/A 09/03/2018 Yes codeine NKMA N/A GI issues 09/24/2018 Medications Medication Packaging Start Date St op Date Route Dosage Sig HYDROcodone-acetaminophen(HY DROcodone-acetaminophen 5 mg-325 mg oral tablet) 1 tabs 11/14/2018 Oral 1 tabs, Oral, q6 hr, 0 Refill(s) Lactated Ringers Injection(L actated Ringers Injection 1,000 mL) 1,000 mL 11/14/2018 11/14/2018 IV 10 mL/hr, IV midazolam(Versed) 2 mL 11/14/2018 11/14/2018 IV Push 2 mg 2 mg = 2 mL, IV Push, Once gabapentin(gabapentin) 2 cap s 11/14/2018 11/14/2018 Oral 600 mg 600 mg = 2 caps, Oral, Once famotidine(Pepcid) 2 mL 11/14/2018 11/14/2018 IV Push 20 mg 20 mg = 2 mL, IV Push, Once acetaminophen(acetaminophen) 2 tabs 11/14/2018 11/14/2018 Oral 650 mg 650 mg = 2 tabs, Oral, Once fentaNYL(fentaNYL) 1 mL 11/14/2018 11/14/2018 IV Push 50 mcg 50 mcg = 1 mL, IV Push, q15min, PRN: Pain Lactated Ringers Injection(L actated Ringers Injection 1,000 mL) 1,000 mL 11/14/2018 11/15/2018 IV 125 mL/hr, IV ondansetron(Zofran) 2 mL 11/14/2018 11/16/2018 IV 4 mg 4 mg = 2 mL, IV, q6hr, PRN: Nausea or Vomiting enoxaparin(Lovenox) 0.4 mL 11/14/2018 11/16/2018 SubCutaneous 40 mg 40 mg = 0.4 mL, SubCutaneous, Daily famotidine(Pepcid) 2 mL 11/14/2018 11/16/2018 IV 20 mg 20 mg = 2 mL, IV, BID acetaminophen(Ofirmev) 100 m L 11/14/2018 11/14/2018 IV Piggyback 1,000 mg 1,000 mg = 100 mL, 400 mL/hr , IV Piggyback, q6hr HYDROmorphone(Dilaudid range dose) 1 mL 11/14/2018 11/16/2018 IV Push 1 mg 1 mg = 1 mL, IV Push, q2hr, PRN: Pain HYDROcodone-acetaminophen(Lo rtab Elixir 5 mg-216 mg/10 mL oral elixir range dose) 20 mL 11/15/2018 11/16/2018 Oral 20 mL, Oral, q6hr, PRN: Pain Moderate (4-6) hydrALAZINE(hydrALAZINE) 0.5 mL 11/15/2018 11/16/2018 IV Push 10 mg 10 mg = 0.5 mL, IV Push, q4hr, PRN: Hypertension/High Blood Pressure Lactated Ringers Injection(L actated Ringers Injection 1,000 mL) 1,000 mL 11/15/2018 11/16/2018 IV 100 mL/hr, IV labetalol(labetalol) 2 mL 11/15/2018 11/15/2018 IV Push 10 mg 10 mg = 2 mL, IV Push, Once, PRN: Hypertension/High Blood Pressure budesonide-formoterol(Symbic ort 80 mcg-4.5 mcg/inh inhalation aerosol) 2 puffs 11/16/2018 11/16/2018 Inhalation 2 puffs , Inhalation, BID fluticasone-salmeterol(Advai r HFA 115 mcg-21 mcg/inh inhalation aerosol) 2 puffs 11/16/2018 11/16/2018 Inhalation 2 puffs , Inhalation, BID ipratropium-albuterol(DuoNeb 0.5 mg-2.5 mg/3 mL inhalation solution) 3 mL 11/16/2018 11/16/2018 NE B 3 mL, NEB, q2hr (scheduled), PRN: Bronchospasms pantoprazole(Protonix) 1 tab s 11/16/2018 11/16/2018 Oral 40 mg 40 mg = 1 tabs, Oral, Daily gabapentin(gabapentin) 1 cap s 11/16/2018 11/16/2018 Oral 400 mg 400 mg = 1 caps, Oral, TID celecoxib(CeleBREX) 1 caps 11/16/2018 11/16/2018 Oral 100 mg 100 mg = 1 caps, Oral, BID HYDROcodone-acetaminophen(HY DROcodone-acetaminophen 7.5 mg-325 mg/15 mL oral solution) 20 mL 11/16/2018 11/23/2018 Oral 20 mL, Oral, q6hr, for 7 days, PRN: Pain Moderate (4-6), 500 mL, 0 Refill(s) Problems Date Dx Coded Attending Type Code Diagnosis Diagnosed By 11/28/2014 Ot 558.9 JOAO NF GASTROENTERIT NEC 11/28/2014 Ot 787.03 VOM ITING ALONE 12/08/2015 JACQUELIN RIVERA DO Ot K21.9 [...] RIVERA DO Ot R07.89 12/18/2015 Ot R10.13 EPI GASTRIC PAIN 12/18/2015 Ot Z01.818 EN COUNTER FOR OTHER PREPROCEDURAL EXAMIN 12/21/2015 Ot R10.13 [...] Ot K29.70 GASTRITIS, UNSPECIFIED, WITHOUT BLEEDING 01/05/2016 CICI SEVILLA MD Ot K44.9 DIAPHRAGMATIC HERNIA WITHOUT OBSTRUCTION 01/06/2016 DI RILEY, CICI Bowser Ot K29.70 GASTRITIS, UNSPECIFIED, WITHOUT BLEEDING 01/06/2016 DI RILEY, CICI M Ot K44.9 DIAPHRAGMATIC HERNIA WITHOUT OBSTRUCTION 01/07/2016 CICI SEVILLA MD Ot K44.9 DIAPHRAGMATIC HERNIA WITHOUT OBSTRUCTION 01/07/2016 DI RILEY, CICI M Ot Z01.818 ENCOUNTER FOR OTHER PREPROCEDURAL EXAMIN 01/07/2016 CICI SEVILLA MD Ot Z11.2 ENCOUNTER FOR SCREENING FOR OTHER BACTER 01/08/2016 CICI SEVILLA MD Ot K44.9 DIAPHRAGMATIC HERNIA WITHOUT OBSTRUCTION 01/08/2016 CICI SEVILLA MD M Ot Z01.818 ENCOUNTER FOR OTHER PREPROCEDURAL EXAMIN 01/08/2016 CICI SEVILLA MD Ot Z11.2 ENCOUNTER FOR SCREENING FOR OTHER BACTER 01/19/2016 CICI SEVILLA MD Ot K44.0 DIAPHRAGMATIC HERNIA WITH OBSTRUCTION, W 01/19/2016 CICI SEVILLA MD Ot R13.10 DYSPHAGIA, UNSPECIFIED 06/13/2016 CICI SEVILLA [...] WITHOUT OBSTRUCTION OR GA 06/21/2016 MERARY SERRA MAGNETIC GRINDER OPERATOR Ot K42.9 UMBILICAL HERNIA WITHOUT OBSTRUCTION OR 06/23/2016 DI RILEY, CICI Bowser Ot K43.9 VENTRAL HERNIA WITHOUT OBSTRUCTION OR GA 08/24/2016 MERARY SERRA MAGNETIC GRINDER OPERATOR Ot K42.9 UMBILICAL HERNIA WITHOUT OBSTRUCTION OR 08/26/2016 MERARY SERRA MAGNETIC GRINDER OPERATOR Ot K42.9 UMBILICAL HERNIA WITHOUT OBSTRUCTION OR 08/31/2016 PEREZ, NICO L MAGNETIC GRINDER OPERATOR Ot J44 .9 CHRONIC OBSTRUCTIVE PULMONARY DISEASE, U 08/31/2016 PEREZ, NICO L MAGNETIC GRINDER OPERATOR Ot J45.909 UNSPECIFIED ASTHMA, UNCOMPLICATED 08/31/2016 PEREZ, NICO L MAGNETIC GRINDER OPERATOR Ot Z79.899 OTHER LYFT DRIVER (CURRENT) DRUG THERAPY 09/14/2016 PEREZ, NICO L MAGNETIC GRINDER OPERATOR Ot J44 .9 CHRONIC OBSTRUCTIVE PULMONARY DISEASE, U 09/14/2016 PEREZ, NICO L MAGNETIC GRINDER OPERATOR Ot J45.909 UNSPECIFIED ASTHMA, UNCOMPLICATED 09/14/2016 PEREZ, NICO L MAGNETIC GRINDER OPERATOR Ot Z79.899 OTHER SENIOR LIVING (CURRENT) DRUG THERAPY 11/14/2016 MERARY SERRA MAGNETIC GRINDER OPERATOR Ot K42.9 UMBILICAL HERNIA WITHOUT OBSTRUCTION OR 11/14/2016 PEREZ, NICO L MAGNETIC GRINDER OPERATOR Ot J44 .9 CHRONIC OBSTRUCTIVE PULMONARY DISEASE, U 11/14/2016 PEREZ, NICO L MAGNETIC GRINDER OPERATOR Ot J45.909 UNSPECIFIED ASTHMA, UNCOMPLICATED 11/14/2016 PEREZ, NICO L MAGNETIC GRINDER OPERATOR Ot Z79.899 OTHER LYFT DRIVER (CURRENT) DRUG THERAPY 11/14/2016 MERARY SERRA MAGNETIC GRINDER OPERATOR Ot K42.9 UMBILICAL HERNIA WITHOUT OBSTRUCTION OR 12/21/2016 PEREZ, NICO L MAGNETIC GRINDER OPERATOR Ot N63 UNSPECIFIED LUMP IN BREAST 12/21/2016 PEREZ, NICO L MAGNETIC GRINDER OPERATOR Ot N64 .4 MASTODYNIA 12/21/2016 PEREZ, NICO L MAGNETIC GRINDER OPERATOR Ot N63 UNSPECIFIED LUMP IN BREAST 12/21/2016 PEREZ, NICO L MAGNETIC GRINDER OPERATOR Ot N64 .4 MASTODYNIA 12/30/2016 PEREZ, NICO L MAGNETIC GRINDER OPERATOR Ot D24 .1 BENIGN NEOPLASM OF RIGHT BREAST 01/03/2017 MERARY SERRA MAGNETIC GRINDER OPERATOR Ot K42.9 UMBILICAL HERNIA WITHOUT OBSTRUCTION OR 01/03/2017 NICO PEREZ MAGNETIC GRINDER OPERATOR Ot J44 .9 CHRONIC OBSTRUCTIVE PULMONARY DISEASE, U 01/03/2017 NICO PEREZ Lily MAGNETIC GRINDER OPERATOR Ot J45.909 UNSPECIFIED ASTHMA, UNCOMPLICATED 01/03/2017 NICO PEREZ MAGNETIC GRINDER OPERATOR Ot Z79.899 OTHER SENIOR LIVING (CURRENT) DRUG THERAPY 01/03/2017 PEREZNICO Lily MAGNETIC GRINDER OPERATOR Ot N63 UNSPECIFIED LUMP IN BREAST 01/03/2017 PEREZNICO Lily MAGNETIC GRINDER OPERATOR Ot N64 .4 MASTODYNIA 01/03/2017 NICO PEREZ Lily MAGNETIC GRINDER OPERATOR Ot D24 .1 BENIGN NEOPLASM OF RIGHT BREAST 01/03/2017 MERARY SERRA MAGNETIC GRINDER OPERATOR Ot K42.9 UMBILICAL HERNIA WITHOUT OBSTRUCTION OR 01/04/2017 NICO PEREZ Lily MAGNETIC GRINDER OPERATOR Ot D24 .1 BENIGN NEOPLASM OF RIGHT BREAST 01/05/2017 NICO PEREZ Lily MAGNETIC GRINDER OPERATOR Ot D24 .1 BENIGN NEOPLASM OF RIGHT BREAST 01/06/2017 PEREZNICO Lily MAGNETIC GRINDER OPERATOR Ot N63 UNSPECIFIED LUMP IN BREAST 01/06/2017 NICO PEREZ Lily MAGNETIC GRINDER OPERATOR Ot N64 .4 MASTODYNIA 01/13/2017 NICO PEREZ Lily MAGNETIC GRINDER OPERATOR Ot D24 .1 BENIGN NEOPLASM OF RIGHT BREAST 02/02/2017 PEREZNICO Lily MAGNETIC GRINDER OPERATOR Ot D24 .1 BENIGN NEOPLASM OF RIGHT BREAST 03/22/2017 PEREZNICO Lily MAGNETIC GRINDER OPERATOR Ot D24 .1 BENIGN NEOPLASM OF RIGHT BREAST 06/28/2017 PEREZNICO Lily MAGNETIC GRINDER OPERATOR Ot M54.16 RADICULOPATHY, LUMBAR REGION 07/17/2018 CHEVY BANDA MD Ot J45.909 UNSPECIFIED ASTHMA, UNCOMPLICATED 07/17/2018 CHEVY BANDA MD, Ot K21.9 GASTRO-ESOPHAGEAL REFLUX DISEASE WITHOUT 07/17/2018 CHEVY BANDA MD Ot K46.9 UNSPECIFIED ABDOMINAL HERNIA WITHOUT OBS 07/17/2018 CHEVY BANDA MD Ot K57.30 DVRTCLOS OF LG INT W/O PERFORATION OR AB 07/17/2018 CHEVY BANDA MD Ot N39.0 URINARY TRACT INFECTION, SITE NOT SPECIF 07/17/2018 CHEVY BANDA MD Ot R10.13 EPIGASTRIC PAIN 07/17/2018 CHEVY BANDA MD, Ot Z87.19 PERSONAL HISTORY OF OTHER DISEASES OF TH 07/17/2018 CHEVY BANDA MD, Ot Z90.49 ACQUIRED [...] MD, Ot Z98.890 OTHER SPECIFIED POSTPROCEDURAL STATES 07/31/2018 DI RILEY, CICI Bowser Ot Z01.818 ENCOUNTER FOR OTHER PREPROCEDURAL EXAMIN 08/02/2018 MERARY SERRA APRN Ot K42.9 UMBILICAL HERNIA WITHOUT OBSTRUCTION OR 08/02/2018 NICO PEREZ APRN Ot J44 .9 CHRONIC OBSTRUCTIVE PULMONARY DISEASE, U 08/02/2018 NICO PEREZ APRN Ot J45.909 UNSPECIFIED ASTHMA, UNCOMPLICATED 08/02/2018 NICO PEREZ APRN Ot Z79.899 OTHER LYFT DRIVER (CURRENT) DRUG THERAPY 08/02/2018 NICO PEREZ APRN Ot N63 UNSPECIFIED LUMP IN BREAST 08/02/2018 PEREZNICO CANO Lily MAGNETIC GRINDER OPERATOR Ot N64 .4 MASTODYNIA 08/02/2018 NICO PEREZ Lily MAGNETIC GRINDER OPERATOR Ot D24 .1 BENIGN NEOPLASM OF RIGHT BREAST 08/02/2018 PEREZNICO Lily MAGNETIC GRINDER OPERATOR Ot M54.16 RADICULOPATHY, LUMBAR REGION 08/06/2018 DI RILEY, CICI Bowser Ot K44.9 DIAPHRAGMATIC HERNIA WITHOUT OBSTRUCTION 08/06/2018 DI RILEY, CICI Bowser Ot K57.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 08/07/2018 DI RILEY, CICI Bowser Ot K44.9 DIAPHRAGMATIC HERNIA WITHOUT OBSTRUCTION 08/07/2018 DI RILEY, CICI Bowser Ot K57.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 08/15/2018 DI RIELY, CICI Bowser Ot K44.9 DIAPHRAGMATIC HERNIA WITHOUT OBSTRUCTION 08/15/2018 DI RILEY, CICI Bowser Ot K57.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 09/03/2018 MERARY SERRA MAGNETIC GRINDER OPERATOR Ot K42.9 UMBILICAL HERNIA WITHOUT OBSTRUCTION OR 09/03/2018 CHRIS NICO Lily MAGNETIC GRINDER OPERATOR Ot J44 .9 CHRONIC OBSTRUCTIVE PULMONARY DISEASE, U 09/03/2018 CHRIS NICO L MAGNETIC GRINDER OPERATOR Ot J45.909 UNSPECIFIED ASTHMA, UNCOMPLICATED 09/03/2018 CHRIS NICO L MAGNETIC GRINDER OPERATOR Ot Z79.899 OTHER LYFT DRIVER (CURRENT) DRUG THERAPY 09/03/2018 CHRIS NICO L MAGNETIC GRINDER OPERATOR Ot N63 UNSPECIFIED LUMP IN BREAST 09/03/2018 CHRIS NICO Lily MAGNETIC GRINDER OPERATOR Ot N64 .4 MASTODYNIA 09/03/2018 CHRIS NICO Lily MAGNETIC GRINDER OPERATOR Ot D24 .1 BENIGN NEOPLASM OF RIGHT BREAST 09/03/2018 CHRIS NICO L MAGNETIC GRINDER OPERATOR Ot M54.16 RADICULOPATHY, LUMBAR REGION 09/04/2018 ANA RILEY, BRAYDON Browne Ot J45.909 UNSPECIFIED ASTHMA, UNCOMPLICATED 09/04/2018 ANA RILEY, BRAYDON Browne Ot K21.9 GASTRO-ESOPHAGEAL REFLUX DISEASE WITHOUT 09/04/2018 ANA RILEY, BRAYDON Browne Ot K44.9 DIAPHRAGMATIC HERNIA WITHOUT OBSTRUCTION 09/04/2018 ANA RILEY, BRAYDON Browne Ot R10.10 UPPER ABDOMINAL PAIN, UNSPECIFIED 09/04/2018 ANA RILEY, BRAYDON Browne Ot Z87.19 PERSONAL HISTORY OF OTHER DISEASES OF TH 09/04/2018 ANA RILEY, BRAYDON Browne Ot Z88.5 ALLERGY STATUS TO NARCOTIC AGENT STATUS 09/04/2018 BRAYDON PEREZ MD, Ot Z90.710 ACQUIRED ABSENCE OF BOTH CERVIX AND UTER 09/04/2018 ANA RILEY, BRAYDON Browne Ot Z98.890 OTHER SPECIFIED POSTPROCEDURAL STATES 11/21/2018 Vincent,, Diaz Final G89. 29 Other chronic pain 11/21/2018 Loryent,Cemle Final J 45.909 Unspecified asthma, uncomplicated 11/21/2018 Vihn,Cemle Final K21. 9 Gastro-esophageal reflux disease without esophagitis 11/21/2018 Vinh,Cemle Admitting K44.9 Diaphragmatic hernia without obstruction or gangrene 11/21/2018 Vinh,Cemle Final R00. 0 Tachycardia, unspecified 11/21/2018 Vincent,, Diaz Final Z90. 49 Acquired absence of other specified parts of digestive tract 11/21/2018 Loryent,Cemle Final K44. 0 Diaphragmatic hernia with obstruction, without gangrene 11/27/2018 DI RILEY, CICI Bowser Ot E83.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 METABOLISM 11/27/2018 DI RILEY, CIIC Bowser Ot E87.6 HYPOKALEMIA 11/27/2018 DI RILEY, CICI Bowser Ot J18.9 PNEUMONIA, UNSPECIFIED ORGANISM 11/27/2018 DI RILEY, CICI Bowser Ot J45.909 UNSPECIFIED ASTHMA, UNCOMPLICATED 11/27/2018 DI RILEY, CICI Bowser Ot J95.811 POSTPROCEDURAL PNEUMOTHORAX 11/27/2018 DI RILEY, CICI Bowser Ot J98.09 OTHER DISEASES OF BRONCHUS, NOT ELSEWHER 11/27/2018 DI RILEY, CICI Bowser Ot J98.11 ATELECTASIS 11/27/2018 DI RILEY, CICI Bowser Ot R00.0 TACHYCARDIA, UNSPECIFIED 11/27/2018 DI RILEY, CICI Bowser Ot R03.0 ELEVATED BLOOD-PRESSURE READING, W/O KATHRYN 11/27/2018 DI RILEY, CICI Bowser Ot R13.10 DYSPHAGIA, UNSPECIFIED 11/27/2018 DI RILEY, CICI M Ot T81.82XA EMPHYSEMA (SUBCUTANEOUS) RESULTING FROM 11/27/2018 DI RILEY, CICI M Ot E83.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 METABOLISM 11/27/2018 DI RILEY, CICI M Ot E87.6 HYPOKALEMIA 11/27/2018 CICI SEVILLA MD M Ot J18.9 PNEUMONIA, UNSPECIFIED ORGANISM 11/27/2018 CICI SEVILLA MD M Ot J45.909 UNSPECIFIED ASTHMA, UNCOMPLICATED 11/27/2018 CICI SEVILLA MD M Ot J95.811 POSTPROCEDURAL PNEUMOTHORAX 11/27/2018 CICI SEVILLA MD M Ot J98.09 OTHER DISEASES OF BRONCHUS, NOT ELSEWHER 11/27/2018 CICI ESVILLA MD M Ot J98.11 ATELECTASIS 11/27/2018 CICI SEVILLA MD M Ot R00.0 TACHYCARDIA, UNSPECIFIED 11/27/2018 CICI SEVILLA MD Ot R03.0 ELEVATED BLOOD-PRESSURE READING, W/O KATHRYN 11/27/2018 CICI SEVILLA MD M Ot R13.10 DYSPHAGIA, UNSPECIFIED 11/27/2018 CICI SEVILLA MD M Ot T81.82XA EMPHYSEMA (SUBCUTANEOUS) RESULTING FROM 11/28/2018 CICI SEVILLA MD M Ot E83.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 METABOLISM 11/28/2018 CICI SEVILLA MD M Ot E87.6 HYPOKALEMIA 11/28/2018 CICI SEVILLA MD M Ot J18.9 PNEUMONIA, UNSPECIFIED ORGANISM 11/28/2018 CICI SEVILLA MD M Ot J45.909 UNSPECIFIED ASTHMA, UNCOMPLICATED 11/28/2018 CICI SEVILLA MD M Ot J95.811 POSTPROCEDURAL PNEUMOTHORAX 11/28/2018 CICI [...] OF PHOSPHORUS METABOLISM 11/28/2018 DI RILEY, CICI Bowser Ot E87.6 HYPOKALEMIA 11/28/2018 DI RILEY, CICI M Ot J18.9 PNEUMONIA, UNSPECIFIED ORGANISM 11/28/2018 DI RILEY, CICI M Ot J45.909 UNSPECIFIED ASTHMA, UNCOMPLICATED 11/28/2018 DI RILEY, CICI M Ot J93.9 PNEUMOTHORAX, UNSPECIFIED 11/28/2018 DI RILEY, CICI M Ot J98.09 OTHER DISEASES OF BRONCHUS, NOT ELSEWHER 11/28/2018 DI RILEY, CICI M Ot J98.11 ATELECTASIS 11/28/2018 CICI SEVILLA MD M Ot 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 11/28/2018 DI RILEY, CICI M Ot R00.0 TACHYCARDIA, UNSPECIFIED 11/28/2018 DI RILEY, CICI M Ot R03.0 ELEVATED BLOOD-PRESSURE READING, W/O KATHRYN 11/28/2018 DI RILEY, CICI M Ot R13.10 DYSPHAGIA, [...] CICI M Ot 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 11/29/2018 CICI SEVILLA MD M Ot R00.0 TACHYCARDIA, UNSPECIFIED 11/29/2018 DI RILEY, CICI M Ot R03.0 ELEVATED BLOOD-PRESSURE READING, W/O KATHRYN 11/29/2018 LUCERO SEVILLA MDVIER M Ot R13.10 DYSPHAGIA, UNSPECIFIED 11/29/2018 DI RILEY, CICI M Ot E83.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 METABOLISM 11/29/2018 DI RILEY, CICI M Ot E87.6 HYPOKALEMIA 11/29/2018 CICI SEVILLA MD M Ot J18.9 PNEUMONIA, UNSPECIFIED ORGANISM 11/29/2018 DI RILEY, CICI M Ot J45.909 UNSPECIFIED ASTHMA, UNCOMPLICATED 11/29/2018 DI RILEY, CICI M Ot J93.9 PNEUMOTHORAX, UNSPECIFIED 11/29/2018 DI RILEY, CICI M Ot J98.09 OTHER DISEASES OF BRONCHUS, NOT ELSEWHER 11/29/2018 CICI SEVILLA MD M Ot J98.11 ATELECTASIS 11/29/2018 CICI SEVILLA MD M Ot 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 11/29/2018 CICI SEVILLA MD M Ot R00.0 TACHYCARDIA, UNSPECIFIED 11/29/2018 CICI SEVILLA MD M Ot R03.0 ELEVATED BLOOD-PRESSURE READING, W/O KATHRYN 11/29/2018 DI RILEY, CICI M Ot R13.10 DYSPHAGIA, UNSPECIFIED 11/30/2018 DI RILEY, CICI M Ot E44.0 MODERATE PROTEIN-CALORIE MALNUTRITION 11/30/2018 CICI SEVILLA MD M Ot E83.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 METABOLISM 11/30/2018 DI RILEY, CICI M Ot E87.6 HYPOKALEMIA 11/30/2018 DI RILEY, CICI M Ot J15.212 PNEUMONIA DUE TO METHICILLIN RESISTANT S 11/30/2018 CICI SEVILLA MD M Ot J18.9 PNEUMONIA, UNSPECIFIED ORGANISM 11/30/2018 DI RILEY, CICI M Ot J45.909 UNSPECIFIED ASTHMA, UNCOMPLICATED 11/30/2018 CICI SEVILLA MD M Ot J93.9 PNEUMOTHORAX, UNSPECIFIED 11/30/2018 DI RILEY, CICI M Ot J98.09 OTHER DISEASES OF BRONCHUS, NOT ELSEWHER 11/30/2018 CICI SEVILLA MD M Ot J98.11 ATELECTASIS 11/30/2018 CICI SEVILLA MD M Ot 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9 MAJOR DEPRESSIVE DISORDER, SINGLE EPISOD 12/06/2018 REHAN REAL BISHOP Ot G72.81 CRITICAL ILLNESS MYOPATHY 12/06/2018 REHAN REAL BISHOP Ot J15.21 2 PNEUMONIA DUE TO METHICILLIN RESISTANT S 12/06/2018 REHAN REAL BISHOP Ot J98.09 OTHER DISEASES OF BRONCHUS, NOT ELSEWHER 12/06/2018 REHAN REAL BISHOP Ot J98.11 ATELECTASIS 12/06/2018 BISHOP VAN DO Ot K21.9 GASTRO-ESOPHAGEAL REFLUX DISEASE WITHOUT 12/06/2018 BISHOP VAN DO Ot R13.10 DYSPHAGIA, UNSPECIFIED 12/06/2018 BISHOP VAN DO Ot Z48.81 5 ENCNTR FOR SURGICAL AFTCR FOLLOWING SURG 12/07/2018 BISHOP VAN DO Ot B37.1 PULMONARY CANDIDIASIS 12/07/2018 BISHOP VAN DO Ot D47.3 ESSENTIAL (HEMORRHAGIC) THROMBOCYTHEMIA 12/07/2018 GARRY VAN DOI Ot D64.9 ANEMIA, UNSPECIFIED 12/07/2018 GARRY VAN DOI Ot E46 UNSPECIFIED PROTEIN-CALORIE MALNUTRITION 12/07/2018 BISHOP VAN DO Ot F32.9 MAJOR DEPRESSIVE DISORDER, SINGLE EPISOD 12/07/2018 REHAN REAL BISHOP Ot G72.81 CRITICAL ILLNESS MYOPATHY 12/07/2018 REHAN REAL BISHOP Ot J15.21 2 PNEUMONIA DUE TO METHICILLIN RESISTANT S 12/07/2018 REHAN REAL BISHOP Ot J98.09 OTHER DISEASES OF BRONCHUS, NOT ELSEWHER 12/07/2018 GARRY VAN DOI Ot J98.11 ATELECTASIS 12/07/2018 BISHOP VAN DO Ot K21.9 GASTRO-ESOPHAGEAL REFLUX DISEASE WITHOUT 12/07/2018 GARRY VAN DOI Ot R13.10 DYSPHAGIA, UNSPECIFIED 12/07/2018 GARRY VAN DOI Ot Z48.81 5 ENCNTR FOR SURGICAL AFTCR FOLLOWING SURG 12/08/2018 GARRY VAN DOI Ot B37.1 PULMONARY CANDIDIASIS 12/08/2018 REHAN REAL BISHOP Ot D47.3 ESSENTIAL (HEMORRHAGIC) THROMBOCYTHEMIA 12/08/2018 REHAN REAL BISHOP Ot D64.9 ANEMIA, UNSPECIFIED 12/08/2018 GARRY VAN DOI Ot E46 UNSPECIFIED PROTEIN-CALORIE MALNUTRITION 12/08/2018 BISHOP VAN DO Ot F32.9 MAJOR DEPRESSIVE DISORDER, SINGLE EPISOD 12/08/2018 GARRY VAN DOI Ot G72.81 CRITICAL ILLNESS MYOPATHY 12/08/2018 GARRY VAN DOI Ot J15.21 2 PNEUMONIA DUE TO METHICILLIN RESISTANT S 12/08/2018 GARRY VAN DOI Ot J98.09 OTHER DISEASES OF BRONCHUS, NOT ELSEWHER 12/08/2018 GARRY VAN DOI Ot J98.11 ATELECTASIS 12/08/2018 BISHOP VAN DO Ot K21.9 GASTRO-ESOPHAGEAL REFLUX DISEASE WITHOUT 12/08/2018 GARRY VAN DOI Ot R13.10 DYSPHAGIA, UNSPECIFIED 12/08/2018 BISHOP VAN DO Ot Z48.81 5 ENCNTR FOR SURGICAL AFTCR FOLLOWING SURG 12/09/2018 BISHOP VAN DO Ot B37.1 PULMONARY CANDIDIASIS 12/09/2018 GARRY VAN DOI Ot D47.3 ESSENTIAL (HEMORRHAGIC) THROMBOCYTHEMIA 12/09/2018 GARRY VAN DOI Ot D64.9 ANEMIA, UNSPECIFIED 12/09/2018 REHAN REAL BISHOP Ot E46 UNSPECIFIED PROTEIN-CALORIE MALNUTRITION 12/09/2018 GARRY VAN DOI Ot F32.9 MAJOR DEPRESSIVE DISORDER, SINGLE EPISOD 12/09/2018 REHAN REAL BISHOP Ot G72.81 CRITICAL ILLNESS MYOPATHY 12/09/2018 GARRY VAN DOI Ot J15.21 2 PNEUMONIA DUE TO METHICILLIN RESISTANT S 12/09/2018 REHAN REAL BISHOP Ot J98.09 OTHER DISEASES OF BRONCHUS, NOT ELSEWHER 12/09/2018 GARRY VAN DOI Ot J98.11 ATELECTASIS 12/09/2018 GARRY VAN DOI Ot K21.9 GASTRO-ESOPHAGEAL REFLUX DISEASE WITHOUT 12/09/2018 GARRY VAN DOI Ot R13.10 DYSPHAGIA, UNSPECIFIED 12/09/2018 GARRY VAN DOI Ot Z48.81 5 ENCNTR FOR SURGICAL AFTCR FOLLOWING SURG 12/10/2018 REHAN REAL BISHOP Ot B37.1 PULMONARY CANDIDIASIS 12/10/2018 REHAN REAL BISHOP Ot D47.3 ESSENTIAL (HEMORRHAGIC) THROMBOCYTHEMIA 12/10/2018 REHAN REAL BISHOP Ot D64.9 ANEMIA, UNSPECIFIED 12/10/2018 REHAN REAL BISHOP Ot E46 UNSPECIFIED PROTEIN-CALORIE MALNUTRITION 12/10/2018 REHAN REAL BISHOP Ot F32.9 MAJOR DEPRESSIVE DISORDER, SINGLE EPISOD 12/10/2018 REHAN REAL BISHOP Ot G72.81 CRITICAL ILLNESS MYOPATHY 12/10/2018 GARRY VAN DOI Ot J15.21 2 PNEUMONIA DUE TO METHICILLIN RESISTANT S 12/10/2018 REHAN REAL BISHOP Ot J98.09 OTHER DISEASES OF BRONCHUS, NOT ELSEWHER 12/10/2018 GARRY VAN DOI Ot J98.11 ATELECTASIS 12/10/2018 GARRY VAN DOI Ot K21.9 GASTRO-ESOPHAGEAL REFLUX DISEASE WITHOUT 12/10/2018 GARRY VAN DOI Ot R13.10 DYSPHAGIA, UNSPECIFIED 12/10/2018 BISHOP VAN DO Ot Z48.81 5 ENCNTR FOR SURGICAL AFTCR FOLLOWING SURG 12/11/2018 GARRY VAN DOI Ot B37.1 PULMONARY CANDIDIASIS 12/11/2018 REHAN REAL BISHOP Ot D47.3 ESSENTIAL (HEMORRHAGIC) THROMBOCYTHEMIA 12/11/2018 REHAN REAL BISHOP Ot D64.9 ANEMIA, UNSPECIFIED 12/11/2018 REHAN REAL BISHOP Ot E46 UNSPECIFIED PROTEIN-CALORIE MALNUTRITION 12/11/2018 REHAN REAL BISHOP Ot F32.9 MAJOR DEPRESSIVE DISORDER, SINGLE EPISOD 12/11/2018 GARRY VAN DOI Ot G72.81 CRITICAL ILLNESS MYOPATHY 12/11/2018 BISHOP VAN DO Ot J15.21 2 PNEUMONIA DUE TO METHICILLIN RESISTANT S 12/11/2018 BISHOP VAN DO Ot J98.09 OTHER DISEASES OF BRONCHUS, NOT ELSEWHER 12/11/2018 BISHOP VAN DO Ot J98.11 ATELECTASIS 12/11/2018 BISHOP VAN DO Ot K21.9 GASTRO-ESOPHAGEAL REFLUX DISEASE WITHOUT 12/11/2018 BISHOP VAN DO Ot R13.10 DYSPHAGIA, UNSPECIFIED 12/11/2018 BISHOP VAN DO Ot Z48.81 5 ENCNTR FOR SURGICAL AFTCR FOLLOWING SURG 12/11/2018 BISHOP VAN DO Ot B37.1 PULMONARY CANDIDIASIS 12/11/2018 BISHOP VAN DO Ot D47.3 ESSENTIAL (HEMORRHAGIC) THROMBOCYTHEMIA 12/11/2018 BISHOP VAN DO Ot D64.9 ANEMIA, UNSPECIFIED 12/11/2018 BISHOP VAN DO Ot E46 UNSPECIFIED PROTEIN-CALORIE MALNUTRITION 12/11/2018 BISHOP VAN DO Ot F32.9 MAJOR DEPRESSIVE DISORDER, SINGLE EPISOD 12/11/2018 BISHOP VAN DO Ot G72.81 CRITICAL ILLNESS MYOPATHY 12/11/2018 BISHOP VAN DO Ot J15.21 2 PNEUMONIA DUE TO METHICILLIN RESISTANT S 12/11/2018 BISHOP VAN DO Ot J98.09 OTHER DISEASES OF BRONCHUS, NOT ELSEWHER 12/11/2018 BISHOP VAN DO Ot J98.11 ATELECTASIS 12/11/2018 BISHOP VAN DO Ot K21.9 GASTRO-ESOPHAGEAL REFLUX DISEASE WITHOUT 12/11/2018 BISHOP VAN DO Ot K76.89 OTHER SPECIFIED DISEASES OF LIVER 12/11/2018 BISHOP VAN DO Ot R13.10 DYSPHAGIA, UNSPECIFIED 12/11/2018 BISHOP VAN DO Ot Z48.81 5 ENCNTR FOR SURGICAL AFTCR FOLLOWING SURG 12/12/2018 SAM COLLINS DO Ot J98. 11 ATELECTASIS 12/13/2018 SAM COLLINS DO Ot J98. 09 OTHER DISEASES OF BRONCHUS, NOT ELSEWHER 12/13/2018 SAM COLLINS DO Ot J98. 11 ATELECTASIS 12/13/2018 SAM COLLINS DO Ot J98. 09 OTHER DISEASES OF BRONCHUS, NOT ELSEWHER 12/13/2018 SAM COLLINS DO Ot J98. 11 ATELECTASIS 12/28/2018 SAM COLLINS DO Ot J98. 09 OTHER DISEASES OF BRONCHUS, NOT ELSEWHER 12/28/2018 SAM COLLINS DO, Ot J98. 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 01/09/2019 TAI SANCHEZ MD, Ot E43 UNSPECIFIED SEVERE PROTEIN-CALORIE MALNU 01/09/2019 TAI SANCHEZ MD, Ot E86.0 DEHYDRATION 01/09/2019 TAI SANCHEZ MD, Ot G72.81 CRITICAL ILLNESS MYOPATHY 01/09/2019 TAI SANCHEZ MD Ot I10 ESSENTIAL (PRIMARY) HYPERTENSION 01/09/2019 TAI SANCHEZ MD, Ot J45.90 9 UNSPECIFIED ASTHMA, UNCOMPLICATED 01/09/2019 TAI SANCHEZ MD, Ot K21.9 GASTRO-ESOPHAGEAL REFLUX DISEASE WITHOUT 01/09/2019 TAI SANCHEZ MD, Ot K22.2 ESOPHAGEAL OBSTRUCTION 01/09/2019 TAI SANCHEZ MD, Ot K91.71 ACCIDENTAL PNCTR LAC OF A DGSTV SYS OR 01/09/2019 TAI SANCHEZ MD, Ot R13.14 DYSPHAGIA, PHARYNGOESOPHAGEAL PHASE 01/09/2019 TAI SANCHEZ MD, Ot R53.81 OTHER MALAISE 01/09/2019 TAI SANCHEZ MD Ot R64 CACHEXIA 01/09/2019 TAI SANCHEZ MD, Ot R73.9 HYPERGLYCEMIA, UNSPECIFIED 01/09/2019 TAI SANCHEZ MD, Ot Z68.1 BODY MASS INDEX (BMI) 19.9 OR LESS, ADUL 01/13/2019 TAI SANCHEZ MD, Ot Z01.81 8 ENCOUNTER FOR OTHER PREPROCEDURAL EXAMIN 04/30/2019 MALA BLAS MD Ot D64. 9 ANEMIA, UNSPECIFIED 04/30/2019 MALA BLAS MD, Ot D72.829 ELEVATED WHITE BLOOD CELL COUNT, UNSPECI 04/30/2019 MALA BLAS MD Ot G89. 29 OTHER CHRONIC PAIN 04/30/2019 MALA BLAS MD Ot I10 ESSENTIAL (PRIMARY) HYPERTENSION 04/30/2019 MALA BLAS MD, Ot J45.909 UNSPECIFIED ASTHMA, UNCOMPLICATED 04/30/2019 MALA BLAS MD Ot K21. 9 GASTRO-ESOPHAGEAL REFLUX DISEASE WITHOUT 04/30/2019 MALA BLAS MD, Ot K44. 9 DIAPHRAGMATIC HERNIA WITHOUT OBSTRUCTION 04/30/2019 MALA BLAS MD, Ot M54. 5 LOW BACK PAIN 04/30/2019 MALA BLAS MD Ot N39. 0 URINARY TRACT INFECTION, SITE NOT SPECIF 04/30/2019 MALA BLAS MD Ot Z66 DO NOT RESUSCITATE 04/30/2019 MALA BLAS MD, Ot Z79.899 OTHER SENIOR LIVING (CURRENT) DRUG THERAPY 04/30/2019 MALA BLAS MD, Ot Z87. 01 PERSONAL HISTORY OF PNEUMONIA (RECURRENT 04/30/2019 MALA BLAS MD Ot Z88. 5 ALLERGY STATUS TO NARCOTIC AGENT STATUS 04/30/2019 MALA BLAS MD Ot Z93. 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 08/01/2019 MERARY SERRA APRN Ot K42.9 UMBILICAL HERNIA WITHOUT OBSTRUCTION OR 08/01/2019 NICO PEREZ APRN Ot J44 .9 CHRONIC OBSTRUCTIVE PULMONARY DISEASE, U 08/01/2019 NICO PEREZ APRN Ot J45.909 UNSPECIFIED ASTHMA, UNCOMPLICATED 08/01/2019 NICO PEREZ APRN Ot Z79.899 OTHER SENIOR LIVING (CURRENT) DRUG THERAPY 08/01/2019 NICO PEREZ MAGNETIC GRINDER OPERATOR Ot N63 UNSPECIFIED LUMP IN BREAST 08/01/2019 NICO PEREZ MAGNETIC GRINDER OPERATOR Ot N64 .4 MASTODYNIA 08/01/2019 NICO PEREZ MAGNETIC GRINDER OPERATOR Ot D24 .1 BENIGN NEOPLASM OF RIGHT BREAST 08/01/2019 NICO PEREZ MAGNETIC GRINDER OPERATOR Ot M54.16 RADICULOPATHY, LUMBAR REGION 08/01/2019 SAM COLLINS DO Ot J98. 09 OTHER DISEASES OF BRONCHUS, NOT ELSEWHER 08/01/2019 SAM COLLINS DO Ot J98. 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 09 OTHER DISEASES OF BRONCHUS, NOT ELSEWHER 11/16/2019 SAM COLLINS DO Ot J98. 11 ATELECTASIS 11/16/2019 MARIEE DO, JOSE L Ot J45.9 09 UNSPECIFIED ASTHMA, UNCOMPLICATED 11/16/2019 MARIEE DO, JOSE L Ot Z43.1 ENCOUNTER FOR ATTENTION TO GASTROSTOMY 11/16/2019 MARIEE DO, JOSE L Ot Z82.4 9 FAMILY HX OF ISCHEM HEART DIS AND OTH DI 11/16/2019 MARIEE DO, JOSE L Ot Z88.5 ALLERGY STATUS TO NARCOTIC AGENT STATUS 11/19/2019 MARIEE DO, JOSE L Ot J45.9 09 UNSPECIFIED ASTHMA, UNCOMPLICATED 11/19/2019 MARIEE DO, JOSE L Ot Z43.1 ENCOUNTER FOR ATTENTION TO GASTROSTOMY 11/19/2019 MARIEE DO, JOSE L Ot Z82.4 9 FAMILY HX OF ISCHEM HEART DIS AND OTH DI 11/19/2019 KODI REAL JOSE L Ot Z88.5 ALLERGY STATUS TO NARCOTIC AGENT STATUS 11/19/2019 MERARY SERRA MAGNETIC GRINDER OPERATOR Ot K42.9 UMBILICAL HERNIA WITHOUT OBSTRUCTION OR 11/19/2019 PEREZ, NICO L MAGNETIC GRINDER OPERATOR Ot J44 .9 CHRONIC OBSTRUCTIVE PULMONARY DISEASE, U 11/19/2019 PEREZ, NICO L MAGNETIC GRINDER OPERATOR Ot J45.909 UNSPECIFIED ASTHMA, UNCOMPLICATED 11/19/2019 PEREZ, NICO L MAGNETIC GRINDER OPERATOR Ot Z79.899 OTHER SENIOR LIVING (CURRENT) DRUG THERAPY 11/19/2019 PEREZ, NICO L MAGNETIC GRINDER OPERATOR Ot N63 UNSPECIFIED LUMP IN BREAST 11/19/2019 PEREZ, NICO L MAGNETIC GRINDER OPERATOR Ot N64 .4 MASTODYNIA 11/19/2019 PEREZ, NICO L MAGNETIC GRINDER OPERATOR Ot D24 .1 BENIGN NEOPLASM OF RIGHT BREAST 11/19/2019 CHRIS NICO L MAGNETIC GRINDER OPERATOR Ot M54.16 RADICULOPATHY, LUMBAR REGION 11/19/2019 SAM COLLINS DO Ot J98. 09 OTHER DISEASES OF BRONCHUS, NOT ELSEWHER 11/19/2019 SAM COLLINS DO Ot J98. 11 ATELECTASIS 11/19/2019 CARITO BACON APRN Ot J45.909 UNSPECIFIED ASTHMA, UNCOMPLICATED 11/19/2019 CARITO BACON APRN Ot K94.23 GASTROSTOMY MALFUNCTION 11/19/2019 CARITO BACON APRN Ot Z82.49 FAMILY HX OF ISCHEM HEART DIS AND OTH DI 11/19/2019 CARITO BACON APRN Ot Z88 .5 ALLERGY STATUS TO NARCOTIC AGENT STATUS 11/19/2019 MERARY SERRA APRN Ot K42.9 UMBILICAL HERNIA WITHOUT OBSTRUCTION OR 11/19/2019 PEREZ, NICO L MAGNETIC GRINDER OPERATOR Ot J44 .9 CHRONIC OBSTRUCTIVE PULMONARY DISEASE, U 11/19/2019 PEREZ, NICO L MAGNETIC GRINDER OPERATOR Ot J45.909 UNSPECIFIED ASTHMA, UNCOMPLICATED 11/19/2019 PEREZ, NICO L MAGNETIC GRINDER OPERATOR Ot Z79.899 OTHER SENIOR LIVING (CURRENT) DRUG THERAPY 11/19/2019 PEREZ, NICO L MAGNETIC GRINDER OPERATOR Ot N63 UNSPECIFIED LUMP IN BREAST 11/19/2019 PEREZ, NICO L MAGNETIC GRINDER OPERATOR Ot N64 .4 MASTODYNIA 11/19/2019 NICO PEREZ MAGNETIC GRINDER OPERATOR Ot D24 .1 BENIGN NEOPLASM OF RIGHT BREAST 11/19/2019 NICO PEREZ MAGNETIC GRINDER OPERATOR Ot M54.16 RADICULOPATHY, LUMBAR REGION 11/19/2019 SAM COLLINS DO Ot J98. 09 OTHER DISEASES OF BRONCHUS, NOT ELSEWHER 11/19/2019 SAM COLLINS DO Ot J98. 11 ATELECTASIS 11/21/2019 VAN DO, BISHOP Ot A41.9 SEPSIS, UNSPECIFIED ORGANISM 11/21/2019 VAN DO, BISHOP Ot I10 ESSENTIAL (PRIMARY) HYPERTENSION 11/21/2019 VAN DO, BISHOP Ot J45.90 9 UNSPECIFIED ASTHMA, UNCOMPLICATED 11/21/2019 VAN DO, BISHOP Ot K21.9 GASTRO-ESOPHAGEAL REFLUX DISEASE WITHOUT 11/21/2019 VAN DO, BISHOP Ot K94.22 GASTROSTOMY INFECTION 11/21/2019 VAN DO, BISHOP Ot L03.31 1 CELLULITIS OF ABDOMINAL WALL 11/21/2019 VAN DO, BISHOP Ot M54.9 DORSALGIA, UNSPECIFIED 11/21/2019 VAN DO, BISHOP Ot N39.0 URINARY TRACT INFECTION, SITE NOT SPECIF 11/22/2019 VAN DO, BISHOP Ot A41.9 SEPSIS, UNSPECIFIED ORGANISM 11/22/2019 VAN DO, BISHOP Ot I10 ESSENTIAL (PRIMARY) HYPERTENSION 11/22/2019 VAN DO, BISHOP Ot J45.90 9 UNSPECIFIED ASTHMA, UNCOMPLICATED 11/22/2019 VAN DO, BISHOP Ot K21.9 GASTRO-ESOPHAGEAL REFLUX DISEASE WITHOUT 11/22/2019 VAN DO, BISHOP Ot K94.22 GASTROSTOMY INFECTION 11/22/2019 VAN DO, BISHOP Ot L03.31 1 CELLULITIS OF ABDOMINAL WALL 11/22/2019 VAN DO, BISHOP Ot M54.9 DORSALGIA, UNSPECIFIED 11/22/2019 VAN DO, BISHOP Ot N39.0 URINARY TRACT INFECTION, SITE NOT SPECIF 11/22/2019 MERARY SERRA APRN Ot K42.9 UMBILICAL HERNIA WITHOUT OBSTRUCTION OR 11/22/2019 NICO PEREZ MAGNETIC GRINDER OPERATOR Ot J44 .9 CHRONIC OBSTRUCTIVE PULMONARY DISEASE, U 11/22/2019 NICO PEREZ MAGNETIC GRINDER OPERATOR Ot J45.909 UNSPECIFIED ASTHMA, UNCOMPLICATED 11/22/2019 NICO PEREZ MAGNETIC GRINDER OPERATOR Ot Z79.899 OTHER SENIOR LIVING (CURRENT) DRUG THERAPY 11/22/2019 NICO PEREZ MAGNETIC GRINDER OPERATOR Ot N63 UNSPECIFIED LUMP IN BREAST 11/22/2019 NICO PEREZ MAGNETIC GRINDER OPERATOR Ot N64 .4 MASTODYNIA 11/22/2019 NICO PEREZ MAGNETIC GRINDER OPERATOR Ot D24 .1 BENIGN NEOPLASM OF RIGHT BREAST 11/22/2019 NICO PEREZ MAGNETIC GRINDER OPERATOR Ot M54.16 RADICULOPATHY, LUMBAR REGION 11/22/2019 SAM COLLINS DO Ot J98. 09 OTHER DISEASES OF BRONCHUS, NOT ELSEWHER 11/22/2019 SAM COLLINS DO Ot J98. 11 ATELECTASIS 11/22/2019 REHAN REAL BISHOP Ot A41.9 SEPSIS, UNSPECIFIED ORGANISM 11/22/2019 REHAN REAL BISHOP Ot I10 ESSENTIAL (PRIMARY) HYPERTENSION 11/22/2019 REHAN REAL BISHOP Ot J45.90 9 UNSPECIFIED ASTHMA, UNCOMPLICATED 11/22/2019 REHAN REAL BISHOP Ot K21.9 GASTRO-ESOPHAGEAL REFLUX DISEASE WITHOUT 11/22/2019 REHAN REAL BISHOP Ot K94.22 GASTROSTOMY INFECTION 11/22/2019 REHAN REAL BISHOP Ot L03.31 1 CELLULITIS OF ABDOMINAL WALL 11/22/2019 REHAN RELA BISHOP Ot M54.9 DORSALGIA, UNSPECIFIED 11/22/2019 REHAN REAL BISHOP Ot N39.0 URINARY TRACT INFECTION, SITE NOT SPECIF 11/23/2019 CARITO BACON APRN Ot J45.909 UNSPECIFIED ASTHMA, UNCOMPLICATED 11/23/2019 CARITO BACON APRN Ot K94.23 GASTROSTOMY MALFUNCTION 11/23/2019 CARITO BACON MAGNETIC GRINDER OPERATOR Ot Z82.49 FAMILY HX OF ISCHEM HEART DIS AND OTH DI 11/23/2019 CARITO BACON MAGNETIC GRINDER OPERATOR Ot Z88 .5 ALLERGY STATUS TO NARCOTIC AGENT STATUS 11/23/2019 REHAN REAL BISHOP Ot A41.9 SEPSIS, UNSPECIFIED ORGANISM 11/23/2019 REHAN REAL BISHOP Ot I10 ESSENTIAL (PRIMARY) HYPERTENSION 11/23/2019 REHAN REAL BISHOP Ot J45.90 9 UNSPECIFIED ASTHMA, UNCOMPLICATED 11/23/2019 VANGARRY DYKES DOI Ot K21.9 GASTRO-ESOPHAGEAL REFLUX DISEASE WITHOUT 11/23/2019 VANJANIA REAL BISHOP Ot K94.22 GASTROSTOMY INFECTION 11/23/2019 BISHOP VAN DO Ot L03.31 1 CELLULITIS OF ABDOMINAL WALL 11/23/2019 BISHOP VAN DO Ot M54.9 DORSALGIA, UNSPECIFIED 11/23/2019 VANBISHOP DYKES DO Ot N39.0 URINARY TRACT INFECTION, SITE NOT SPECIF Procedures Code Description Performed By Per formed On [id number] JALLOH PPLEMENT R DIAPHRAGM WITH NONAUT SUB, 01/13/2016 [id number] JALLOH PPLEMENT L DIAPHRAGM WITH NONAUT SUB, 01/13/2016 [id number] RE POSITION STOMACH, PERCUTANEOUS ENDOSCO 01/13/2016 [id number] RE POSITION TRANSVERSE COLON, PERC ENDO A 01/13/2016 [id number] 01/13/2016 [id number] RE STRICTION OF ESOPHAGOGASTRIC JUNCTION, 01/13/20 16 [id number] RE POSITION PANCREAS, PERCUTANEOUS ENDOSC 01/13/2016 [id number] RO BOTIC ASSISTED PROCEDURE OF TRUNK, PER 01/13/2016 [id number] Ro botic Assisted Procedure of Trunk Region, Percutaneous Endoscopic Approac 11/14/[id number] ROB OF L PLEURAL CAV WITH DRAIN DEV 11/23/[id number] ROB OF LEFT LOWER LOBE [place]CH[place], EN 11/25/2018 [id number] EX TIRPATION OF MATTER FROM LEFT LOWER LO 11/25/2018 [id number] EX TIRPATION OF MATTER FROM RIGHT MAIN BR 12/06/2018 [id number] EX TIRPATION OF MATTER FROM LEFT MAIN BRO 12/06/2018 [id number] EX CISION OF ESOPHAGOGASTRIC JUNCTION, EN 01/08/2019 Results Test Result Range Methicillin resistant Staphylococcus aur eus (MRSA) screening culture - 06/15/16 07:45 MRSA SCREEN RESULT MRSA ISOLATED NRG Complete blood count (CBC) with automate d white blood cell (WBC) differential - 08/30/16 07:36 Blood leukocytes automated count (number/volume) 5.5 10*3/uL 4.3-11.0 Blood erythrocytes automated count (number/volume) 4.92 10*6/uL 4.35-5.85 Venous blood hemoglobin measurement (mass/volume) 14.7 g/dL 11.5-16.0 Blood hematocrit (volume fraction) 44 % 35-52 Automated erythrocyte mean corpuscular volume 90 [ foz_us] 80-99 Automated erythrocyte mean corpuscular h emoglobin (mass per erythrocyte) 30 pg 25-34 Automated erythrocyte mean corpuscular h emoglobin concentration measurement (mass/volume) 33 g/dL 32-36 Automated erythrocyte distribution width ratio 12. 5 % 10.0- 14.5 Automated blood platelet count (count/volume) 296 10*3/uL [...] 10*3 1.0-4.0 Blood monocytes automated count (number/volume) 0. 3 10*3 0.0-1.0 Automated eosinophil count 0.2 10*3/uL 0 .0-0.3 Automated blood basophil count (count/volume) 0.0 10*3/uL 0.0-0.1 Comprehensive metabolic panel - 08/30/16 07:36 Serum or plasma sodium measurement (moles/volume) 139 mmol/L 135-145 Serum or plasma potassium measurement (moles/volume) 4.5 mmol/L 3.6-5.0 Serum or plasma chloride measurement (moles/volume) 107 mmol/L 98-107 Carbon dioxide 24 mmol/L 21-32 Serum or plasma anion gap determination (moles/volume) 8 mmol/L 5-14 Serum or plasma urea nitrogen measurement (mass/volume ) 15 mg/dL 7-18 Serum or plasma creatinine measurement (mass/volume) 0.74 mg/dL 0.60-1.30 Serum or plasma urea nitrogen/creatinine mass ratio 20 NRG Serum or plasma creatinine measurement w ith calculation of estimated glomerular filtration rate > NRG Serum or plasma glucose measurement (mass/volume) 103 mg/dL 70-105 Serum or plasma calcium measurement (mass/volume) 9.6 mg/dL 8.5-10.1 Serum or plasma total bilirubin measurement (mass/volu me) 0.3 mg/dL 0.1-1.0 Serum or plasma alkaline phosphatase vaibhav surement (enzymatic activity/volume) 75 U/L 40-136 Serum or plasma aspartate aminotransfera se measurement (enzymatic activity/volume) 16 U/L 5-34 Serum or plasma alanine aminotransferase measurement (enzymatic activity/volume) 21 U/L 0-55 Serum or plasma protein measurement (mass/volume) 7.0 g/dL 6.4-8.2 Serum or plasma albumin measurement (mass/volume) 4.2 g/dL 3.2-4.5 Lipid 1996 panel - 08/30/16 07:36 Serum or plasma triglyceride measurement (mass/volume) 73 mg/dL <150 Serum or plasma cholesterol measurement (mass/volume) 177 mg/dL < 200 Serum or plasma cholesterol in HDL measurement (mass/v olume) 57 mg/dL 40-60 Cholesterol in LDL [mass/volume] in serum or plasma by direct assay 105 mg/dL 1-129 Serum or plasma cholesterol in VLDL measurement (mass/ volume) 15 mg/dL 5-40 Complete blood count (CBC) with automate d white blood cell (WBC) differential - 07/17/18 07:50 Blood leukocytes automated count (number/volume) 5.3 10*3/uL 4.3-11.0 Blood erythrocytes automated count (number/volume) 4.50 10*6/uL 4.35-5.85 Venous blood hemoglobin measurement (mass/volume) 13.9 g/dL 11.5-16.0 Blood hematocrit (volume fraction) 41 % 35-52 Automated erythrocyte mean corpuscular volume 91 [ foz_us] 80-99 Automated erythrocyte mean corpuscular h emoglobin (mass per erythrocyte) 31 pg 25-34 Automated erythrocyte mean corpuscular h emoglobin concentration measurement (mass/volume) 34 g/dL 32-36 Automated erythrocyte distribution width ratio 12. 6 % 10.0- 14.5 Automated blood platelet count (count/volume) 245 10*3/uL [...] 10*3 1.0-4.0 Blood monocytes automated count (number/volume) 0. 3 10*3 0.0-1.0 Automated eosinophil count 0.2 10*3/uL 0 .0-0.3 Automated blood basophil count (count/volume) 0.0 10*3/uL 0.0-0.1 Comprehensive metabolic panel - 07/17/18 07:50 Serum or plasma sodium measurement (moles/volume) 140 mmol/L 135-145 Serum or plasma potassium measurement (moles/volume) 4.0 mmol/L 3.6-5.0 Serum or plasma chloride measurement (moles/volume) 109 mmol/L 98-107 Carbon dioxide 23 mmol/L 21-32 Serum or plasma anion gap determination (moles/volume) 8 mmol/L 5-14 Serum or plasma urea nitrogen measurement (mass/volume ) 19 mg/dL 7-18 Serum or plasma creatinine measurement (mass/volume) 0.72 mg/dL 0.60-1.30 Serum or plasma urea nitrogen/creatinine mass ratio 26 NRG Serum or plasma creatinine measurement w ith calculation of estimated glomerular filtration rate > NRG Serum or plasma glucose measurement (mass/volume) 108 mg/dL 70-105 Serum or plasma calcium measurement (mass/volume) 9.3 mg/dL 8.5-10.1 Serum or plasma total bilirubin measurement (mass/volu me) 0.6 mg/dL 0.1-1.0 Serum or plasma alkaline phosphatase vaibhav surement (enzymatic activity/volume) 50 U/L 40-136 Serum or plasma aspartate aminotransfera se measurement (enzymatic activity/volume) 17 U/L 5-34 Serum or plasma alanine aminotransferase measurement (enzymatic activity/volume) 15 U/L 0-55 Serum or plasma protein measurement (mass/volume) 6.8 g/dL 6.4-8.2 Serum or plasma albumin measurement (mass/volume) 4.1 g/dL 3.2-4.5 CALCIUM CORRECTED 9.2 mg/dL 8.5-10.1 Serum or plasma amylase measurement (enz ymatic activity/volume) - 07/17/18 07:50 Serum or plasma amylase measurement (enzymatic activit y/volume) 70 U/L 25-125 Lipase - 07/17/18 07:50 Lipase 26 U/L 8-78 Complete urinalysis with reflex to cultu re - 07/17/18 09:10 Urine color determination YELLOW NRG Urine clarity determination CLEAR NR G Urine pH measurement by test strip 8 5-9 Specific gravity of urine by test strip 1.015 1.016-1.022 Urine protein assay by test strip, semi-quantitative NEGATIVE NEGATIVE Urine glucose detection by automated test strip NE GATIVE NEGATIVE Erythrocytes detection in urine sediment by light micr oscopy NEGATIVE NEGATIVE Urine ketones detection by automated test strip NE GATIVE NEGATIVE Urine nitrite detection by test strip NEGATIVE NEGATIVE Urine total bilirubin detection by test strip NEGA TIVE NEGATIVE Urine urobilinogen measurement by automated test strip (mass/volume) NORMAL NORMAL Urine leukocyte esterase detection by dipstick 2+ NEGATIVE Automated urine sediment erythrocyte cou nt by microscopy (number/high power field) NONE NRG Automated urine sediment leukocyte count by microscopy (number/high power field) [HPF] NRG Bacteria detection in urine sediment by light microsco py MODERATE NRG Squamous epithelial cells detection in u rine sediment by light microscopy 5-10 NRG Crystals detection in urine sediment by light microsco py NONE NRG Casts detection in urine sediment by light microscopy NONE NRG Mucus detection in urine sediment by light microscopy NEGATIVE NRG Complete urinalysis with reflex to culture YES NRG Bacterial urine culture - 07/17/18 09:10 Bacterial urine culture NG NRG Complete blood count (CBC) with automate d white blood cell (WBC) differential - 09/03/18 21:30 Blood leukocytes automated count (number/volume) 9.0 10*3/uL 4.3-11.0 Blood erythrocytes automated count (number/volume) 4.63 10*6/uL 4.35-5.85 Venous blood hemoglobin measurement (mass/volume) 14.0 g/dL 11.5-16.0 Blood hematocrit (volume fraction) 42 % 35-52 Automated erythrocyte mean corpuscular volume 90 [ foz_us] 80-99 Automated erythrocyte mean corpuscular h emoglobin (mass per erythrocyte) 30 pg 25-34 Automated erythrocyte mean corpuscular h emoglobin concentration measurement (mass/volume) 34 g/dL 32-36 Automated erythrocyte distribution width ratio 11. 9 % 10.0- 14.5 Automated blood platelet count (count/volume) 236 10*3/uL [...] 10*3 1.0-4.0 Blood monocytes automated count (number/volume) 0. 3 10*3 0.0-1.0 Automated eosinophil count 0.0 10*3/uL 0 .0-0.3 Automated blood basophil count (count/volume) 0.0 10*3/uL 0.0-0.1 Comprehensive metabolic panel - 09/03/18 21:30 Serum or plasma sodium measurement (moles/volume) 138 mmol/L 135-145 Serum or plasma potassium measurement (moles/volume) 4.8 mmol/L 3.6-5.0 Serum or plasma chloride measurement (moles/volume) 103 mmol/L 98-107 Carbon dioxide 24 mmol/L 21-32 Serum or plasma anion gap determination (moles/volume) 11 mmol/L 5-14 Serum or plasma urea nitrogen measurement (mass/volume ) 13 mg/dL 7-18 Serum or plasma creatinine measurement (mass/volume) 0.74 mg/dL 0.60-1.30 Serum or plasma urea nitrogen/creatinine mass ratio 18 NRG Serum or plasma creatinine measurement w ith calculation of estimated glomerular filtration rate > NRG Serum or plasma glucose measurement (mass/volume) 134 mg/dL 70-105 Serum or plasma calcium measurement (mass/volume) 9.2 mg/dL 8.5-10.1 Serum or plasma total bilirubin measurement (mass/volu me) 0.5 mg/dL 0.1-1.0 Serum or plasma alkaline phosphatase vaibhav surement (enzymatic activity/volume) 53 U/L 40-136 Serum or plasma aspartate aminotransfera se measurement (enzymatic activity/volume) 23 U/L 5-34 Serum or plasma alanine aminotransferase measurement (enzymatic activity/volume) 25 U/L 0-55 Serum or plasma protein measurement (mass/volume) 6.7 g/dL 6.4-8.2 Serum or plasma albumin measurement (mass/volume) 3.9 g/dL 3.2-4.5 CALCIUM CORRECTED 9.3 mg/dL 8.5-10.1 Lipase - 09/03/18 21:30 Lipase 19 U/L 8-78 Glucose NPT - 11/14/18 10:11 Glucose NPT 89 mg/dL 70-100 Glucose NPT - 11/15/18 00:25 Glucose NPT 138 mg/dL 70-100 Glucose NPT - 11/15/18 05:53 Glucose NPT 101 mg/dL 70-100 CBC With Platelet No Differential - 10/20 05/06 06:14 HCT 38.6 % 37.0-47.0 HGB 12.9 g/dL 12.0-16.0 MCH 30.5 pg 27.0-32.0 MCHC 33.4 g/dL 32.0-36.0 MCV 91.3 fL 82.0-99.0 MPV 9.1 fL 9.4-12.4 Platelet Count 218 K/uL 150-400 RBC 4.23 10*6/uL 4.00-5.20 RDW 13.3 % 11.5-14.5 WBC 7.5 K/uL 4.8-10.8 Magnesium - 11/15/18 06:14 Magnesium 1.8 mg/dL 1.8-2.5 Renal Function Panel - 11/15/18 06:14 Albumin 2.9 g/dL 3.5-4.8 Anion Gap 12 mEq/L 3-20 BUN 12 mg/dL 4-20 Calcium 8.7 mg/dL 8.6-10.0 Chloride 108 mEq/L 99-109 CO2 22 mEq/L 22-32 Creatinine 0.64 mg/dL 0.44-1.03 Glucose 97 mg/dL 70-100 Phosphorus 3.8 mg/dL 2.4-4.7 Potassium 4.4 mEq/L 3.6-5.1 Sodium 142 mEq/L 136-144 eGFR - 11/15/18 06:14 eGFR >60 mL/min >60 Glucose NPT - 11/15/18 11:51 Glucose NPT 90 mg/dL 70-100 CBC With Platelet No Differential - 10/06 05:30 HCT 38.1 % 37.0-47.0 HGB 12.3 g/dL 12.0-16.0 MCH 29.9 pg 27.0-32.0 MCHC 32.3 g/dL 32.0-36.0 MCV 92.7 fL 82.0-99.0 MPV 8.6 fL 9.4-12.4 Platelet Count 232 K/uL 150-400 RBC 4.11 10*6/uL 4.00-5.20 RDW 13.7 % 11.5-14.5 WBC 8.9 K/uL 4.8-10.8 Renal Function Panel - 11/16/18 05:30 Albumin 2.8 g/dL 3.5-4.8 Anion Gap 8 mEq/L 3-20 BUN 10 mg/dL 4-20 Calcium 8.7 mg/dL 8.6-10.0 Chloride 104 mEq/L 99-109 CO2 26 mEq/L 22-32 Creatinine 0.53 mg/dL 0.44-1.03 Glucose 116 mg/dL 70-100 Phosphorus 2.7 mg/dL 2.4-4.7 Potassium 3.5 mEq/L 3.6-5.1 Sodium 138 mEq/L 136-144 eGFR - 11/16/18 05:30 eGFR >60 mL/min >60 Troponin - 11/16/18 06:49 Troponin <0.05 ng/mL <0.06 Complete blood count (CBC) with automate d white blood cell (WBC) differential - 11/23/18 14:57 Blood leukocytes automated count (number/volume) 11.7 10*3/uL 4.3-11.0 Blood erythrocytes automated count (number/volume) 4.76 10*6/uL 4.35-5.85 Venous blood hemoglobin measurement (mass/volume) 13.8 g/dL 11.5-16.0 Blood hematocrit (volume fraction) 43 % 35-52 Automated erythrocyte mean corpuscular volume 90 [ foz_us] 80-99 Automated erythrocyte mean corpuscular h emoglobin (mass per erythrocyte) 29 pg 25-34 Automated erythrocyte mean corpuscular h emoglobin concentration measurement (mass/volume) 32 g/dL 32-36 Automated erythrocyte distribution width ratio 13. 4 % 10.0- 14.5 Automated blood platelet count (count/volume) 299 10*3/uL [...] 10*3 1.0-4.0 Blood monocytes automated count (number/volume) 0. 5 10*3 0.0-1.0 Automated eosinophil count 0.3 10*3/uL 0 .0-0.3 Automated blood basophil count (count/volume) 0.1 10*3/uL 0.0-0.1 Blood lactic acid measurement (moles/vol ume) - 11/23/18 14:57 Blood lactic acid measurement (moles/volume) 1.03 mmol/L 0.50-2.00 PT panel in platelet poor plasma by coag ulation assay - 11/23/18 14:57 Prothrombin time (PT) in platelet poor plasma by coagu lation assay 13.7 s 12.2-14.7 INR in platelet poor plasma or blood by coagulation as say 1.1 0.8-1.4 Activated partial thromboplastin time (a PTT) in platelet poor plasma bycoagulation assay - 11/23/18 14:57 Activated partial thromboplastin time (a PTT) in platelet poor plasma bycoagulation assay 32 s 24-35 Influenza virus A and B antigen detectio n - 11/23/18 14:57 FLU RESULT NEGATIVE FOR INFLUENZA A AND B ANTIGENS BY [facility] Comprehensive metabolic panel - 11/23/18 14:57 Serum or plasma sodium measurement (moles/volume) 141 mmol/L 135-145 Serum or plasma potassium measurement (moles/volume) 3.9 mmol/L 3.6-5.0 Serum or plasma chloride measurement (moles/volume) 103 mmol/L 98-107 Carbon dioxide 22 mmol/L 21-32 Serum or plasma anion gap determination (moles/volume) 16 mmol/L 5-14 Serum or plasma urea nitrogen measurement (mass/volume ) 13 mg/dL 7-18 Serum or plasma creatinine measurement (mass/volume) 0.60 mg/dL 0.60-1.30 Serum or plasma urea nitrogen/creatinine mass ratio 22 NRG Serum or plasma creatinine measurement w ith calculation of estimated glomerular filtration rate > NRG Serum or plasma glucose measurement (mass/volume) 93 mg/dL 70-105 Serum or plasma calcium measurement (mass/volume) 9.4 mg/dL 8.5-10.1 Serum or plasma total bilirubin measurement (mass/volu me) 0.6 mg/dL 0.1-1.0 Serum or plasma alkaline phosphatase vaibhav surement (enzymatic activity/volume) 90 U/L 40-136 Serum or plasma aspartate aminotransfera se measurement (enzymatic activity/volume) 37 U/L 5-34 Serum or plasma alanine aminotransferase measurement (enzymatic activity/volume) 59 U/L 0-55 Serum or plasma protein measurement (mass/volume) 7.7 g/dL 6.4-8.2 Serum or plasma albumin measurement (mass/volume) 3.8 g/dL 3.2-4.5 CALCIUM CORRECTED 9.6 mg/dL 8.5-10.1 Blood manual differential performed dete ction - 11/23/18 14:57 Blood monocytes/100 leukocytes 4 % NRG Manual blood segmented neutrophils/100 leukocytes 83 % NRG Blood band neutrophils/100 leukocytes 0 % NRG Manual blood lymphocytes/100 leukocytes 12 % NRG Manual eosinophils/100 leukocytes in nose 1 % NRG Manual blood basophils/100 leukocytes 0 % NRG Blood erythrocyte morphology finding identification NORMAL NRG Serum or plasma troponin i.cardiac measu rement (mass/volume) - 11/23/18 14:57 Serum or plasma troponin i.cardiac measurement (mass/v olume) < ng/mL <0.028 Serum or plasma lithium measurement (mol es/volume) - 11/23/18 14:57 BNP level 18.0 pg/mL <100.0 Bacterial blood culture - 11/23/18 14:57 Bacterial blood culture NG NRG Bacterial blood culture - 11/23/18 15:30 Bacterial blood culture NG NRG Complete urinalysis with reflex to cultu re - 11/23/18 18:00 Urine color determination YELLOW NRG Urine clarity determination CLEAR NR G Urine pH measurement by test strip 5 5-9 Specific gravity of urine by test strip 1.015 1.016-1.022 Urine protein assay by test strip, semi-quantitative 2+ NEGATIVE Urine glucose detection by automated test strip NE GATIVE NEGATIVE Erythrocytes detection in urine sediment by light micr oscopy NEGATIVE NEGATIVE Urine ketones detection by automated test strip 4+ NEGATIVE Urine nitrite detection by test strip NEGATIVE NEGATIVE Urine total bilirubin detection by test strip NEGA TIVE NEGATIVE Urine urobilinogen measurement by automated test strip (mass/volume) NORMAL NORMAL Urine leukocyte esterase detection by dipstick 1+ NEGATIVE Automated urine sediment erythrocyte cou nt by microscopy (number/high power field) NONE NRG Automated urine sediment leukocyte count by microscopy (number/high power field) [HPF] NRG Bacteria detection in urine sediment by light microsco py NEGATIVE NRG Squamous epithelial cells detection in u rine sediment by light microscopy 5-10 NRG Crystals detection in urine sediment by light microsco py NONE NRG Casts detection in urine sediment by light microscopy NONE NRG Mucus detection in urine sediment by light microscopy NEGATIVE NRG Complete urinalysis with reflex to culture NO NRG Bacterial urine culture - 11/23/18 18:00 Bacterial urine culture NG NRG Complete blood count (CBC) with automate d white blood cell (WBC) differential - 11/24/18 03:28 Blood leukocytes automated count (number/volume) 12.1 10*3/uL 4.3-11.0 Blood erythrocytes automated count (number/volume) 3.80 10*6/uL 4.35-5.85 Venous blood hemoglobin measurement (mass/volume) 11.4 g/dL 11.5-16.0 Blood hematocrit (volume fraction) 35 % 35-52 Automated erythrocyte mean corpuscular volume 92 [ foz_us] 80-99 Automated erythrocyte mean corpuscular h emoglobin (mass per erythrocyte) 30 pg 25-34 Automated erythrocyte mean corpuscular h emoglobin concentration measurement (mass/volume) 33 g/dL 32-36 Automated erythrocyte distribution width ratio 13. 6 % 10.0- 14.5 Automated blood platelet count (count/volume) 290 10*3/uL [...] 10*3 1.0-4.0 Blood monocytes automated count (number/volume) 0. 5 10*3 0.0-1.0 Automated eosinophil count 0.5 10*3/uL 0 .0-0.3 Automated blood basophil count (count/volume) 0.0 10*3/uL 0.0-0.1 Whole blood basic metabolic panel - 06/06 03:28 Serum or plasma sodium measurement (moles/volume) 143 mmol/L 135-145 Serum or plasma potassium measurement (moles/volume) 3.3 mmol/L 3.6-5.0 Serum or plasma chloride measurement (moles/volume) 112 mmol/L 98-107 Carbon dioxide 19 mmol/L 21-32 Serum or plasma anion gap determination (moles/volume) 12 mmol/L 5-14 Serum or plasma urea nitrogen measurement (mass/volume ) 11 mg/dL 7-18 Serum or plasma creatinine measurement (mass/volume) 0.52 mg/dL 0.60-1.30 Serum or plasma urea nitrogen/creatinine mass ratio 21 NRG Serum or plasma creatinine measurement w ith calculation of estimated glomerular filtration rate > NRG Serum or plasma glucose measurement (mass/volume) 77 mg/dL 70-105 Serum or plasma calcium measurement (mass/volume) 8.2 mg/dL 8.5-10.1 Serum or plasma phosphate measurement (m ass/volume) - 11/24/18 03:28 Serum or plasma phosphate measurement (mass/volume) 3.3 mg/dL 2.3-4.7 Magnesium - 11/24/18 03:28 Magnesium 1.6 mg/dL 1.8-2.4 Arterial blood gas measurement - 9 00:30 Blood pCO2 44 mm[Hg] 35-45 Blood pO2 79 mm[Hg] 79-93 Arterial blood bicarbonate measurement (moles/volume) 25 mmol/L 23-27 Arterial blood base excess by calculation 0.6 mmol /L -2.5-2.5 Arterial blood oxygen saturation measurement 96 % 94-100 * Inhaled oxygen flow rate 15L NRG Arterial blood pH measurement with patient temperature correction 7.38 7.37-7.43 Arterial blood carbon dioxide, total measurement (mole s/volume) 26.5 mmol/L 21.0-31.0 Body site RIGHT RADIAL NRG Assessment of wrist artery patency prior to arterial p uncture YES-POS NRG Setting of ventilation mode NO NR G Measurement of body temperature 98.8 NRG Complete blood count (CBC) with automate d white blood cell (WBC) differential - 11/25/18 03:30 Blood leukocytes automated count (number/volume) 11.5 10*3/uL 4.3-11.0 Blood erythrocytes automated count (number/volume) 4.22 10*6/uL 4.35-5.85 Venous blood hemoglobin measurement (mass/volume) 12.3 g/dL 11.5-16.0 Blood hematocrit (volume fraction) 38 % 35-52 Automated erythrocyte mean corpuscular volume 91 [ foz_us] 80-99 Automated erythrocyte mean corpuscular h emoglobin (mass per erythrocyte) 29 pg 25-34 Automated erythrocyte mean corpuscular h emoglobin concentration measurement (mass/volume) 32 g/dL 32-36 Automated erythrocyte distribution width ratio 13. 1 % 10.0- 14.5 Automated blood platelet count (count/volume) 322 10*3/uL [...] 10*3 1.0-4.0 Blood monocytes automated count (number/volume) 0. 5 10*3 0.0-1.0 Automated eosinophil count 0.4 10*3/uL 0 .0-0.3 Automated blood basophil count (count/volume) 0.0 10*3/uL 0.0-0.1 Whole blood basic metabolic panel - 11/16 03:30 Serum or plasma sodium measurement (moles/volume) 143 mmol/L 135-145 Serum or plasma potassium measurement (moles/volume) 3.3 mmol/L 3.6-5.0 Serum or plasma chloride measurement (moles/volume) 106 mmol/L 98-107 Carbon dioxide 20 mmol/L 21-32 Serum or plasma anion gap determination (moles/volume) 17 mmol/L 5-14 Serum or plasma urea nitrogen measurement (mass/volume ) 9 mg/dL 7-18 Serum or plasma creatinine measurement (mass/volume) 0.54 mg/dL 0.60-1.30 Serum or plasma urea nitrogen/creatinine mass ratio 17 NRG Serum or plasma creatinine measurement w ith calculation of estimated glomerular filtration rate > NRG Serum or plasma glucose measurement (mass/volume) 108 mg/dL 70-105 Serum or plasma calcium measurement (mass/volume) 8.3 mg/dL 8.5-10.1 Serum or plasma phosphate measurement (m ass/volume) - 11/25/18 03:30 Serum or plasma phosphate measurement (mass/volume) 2.9 mg/dL 2.3-4.7 Magnesium - 11/25/18 03:30 Magnesium 1.5 mg/dL 1.8-2.4 Sputum Gram stain - 11/25/18 13:10 Sputum Gram stain Few Gram positive cocci in clust ers NRG Bacteria identification in bronchial spe cimen by aerobe culture - 11/25/18 13:10 QUANTITY OF GROWTH . NRG Bacteria identification in bronchial specimen by aerob e culture YEAST NRG FTX;REPORTABLE LESS THAN 1,000 CFU/ML N RG FREE TEXT ENTRY 2 SUSCEPTIBILITY REPORT RCD 11/27 1 2:05 NRG FREE TEXT ENTRY 3 MRSA REPORTED TO MELL 11/27 1 2:24 NRG RML Sensitivity Panel - 11/25/18 13:10 Oxacillin susceptibility test by minimum inhibitory co ncentration R NRG Clindamycin susceptibility test by minimum inhibitory concentration <= NRG Erythromycin susceptibility test by minimum inhibitory concentration > NRG Trimethoprim/sulfamethoxazole susceptibi lity test by minimum inhibitoryconcentration S NRG Vancomycin susceptibility test by minimum inhibitory c oncentration 1 NRG Levofloxacin susceptibility test by minimum inhibitory concentration <= NRG Rifampin susceptibility test by minimum inhibitory con centration <= NRG Cefazolin susceptibility test by minimum inhibitory co ncentration > NRG Linezolid susceptibility test by minimum inhibitory co ncentration 2 NRG Penicillin G susceptibility test by minimum inhibitory concentration > NRG Moxifloxacin susceptibility test by minimum inhibitory concentration <= NRG Minocycline susc LEONEL <= NRG C FUNGUS SPUTUM FLUID TISSUE - 11/25/18 13:10 QUANTITY OF GROWTH FEW NRG C FUNGUS SPUTUM FLUID TISSUE [id number] N RG Mycobacterium species detection by organ ism specific culture - 11/25/18 13:10 Serum or plasma lithium measurement (mol es/volume) - 11/25/18 14:00 BNP level 62.6 pg/mL <100.0 Complete urinalysis with reflex to cultu re - 11/25/18 21:29 Urine color determination YELLOW NRG Urine clarity determination CLEAR NR G Urine pH measurement by test strip 5 5-9 Specific gravity of urine by test strip 1.015 1.016-1.022 Urine protein assay by test strip, semi-quantitative 1+ NEGATIVE Urine glucose detection by automated test strip NE GATIVE NEGATIVE Erythrocytes detection in urine sediment by light micr oscopy NEGATIVE NEGATIVE Urine ketones detection by automated test strip NE GATIVE NEGATIVE Urine nitrite detection by test strip NEGATIVE NEGATIVE Urine total bilirubin detection by test strip NEGA TIVE NEGATIVE Urine urobilinogen measurement by automated test strip (mass/volume) NORMAL NORMAL Urine leukocyte esterase detection by dipstick 1+ NEGATIVE Automated urine sediment erythrocyte cou nt by microscopy (number/high power field) NONE NRG Automated urine sediment leukocyte count by microscopy (number/high power field) [HPF] NRG Bacteria detection in urine sediment by light microsco py TRACE NRG Squamous epithelial cells detection in u rine sediment by light microscopy RARE NRG Crystals detection in urine sediment by light microsco py NONE NRG Casts detection in urine sediment by light microscopy PRESENT NRG Mucus detection in urine sediment by light microscopy NEGATIVE NRG Complete urinalysis with reflex to culture NO NRG Yeast detection in urine sediment by light microscopy FEW NRG Hyaline casts detection in urine sediment by light leonel roscopy 2-5 NRG Complete blood count (CBC) with automate d white blood cell (WBC) differential - 11/26/18 03:29 Blood leukocytes automated count (number/volume) 13.3 10*3/uL 4.3-11.0 Blood erythrocytes automated count (number/volume) 4.05 10*6/uL 4.35-5.85 Venous blood hemoglobin measurement (mass/volume) 11.9 g/dL 11.5-16.0 Blood hematocrit (volume fraction) 37 % 35-52 Automated erythrocyte mean corpuscular volume 91 [ foz_us] 80-99 Automated erythrocyte mean corpuscular h emoglobin (mass per erythrocyte) 29 pg 25-34 Automated erythrocyte mean corpuscular h emoglobin concentration measurement (mass/volume) 32 g/dL 32-36 Automated erythrocyte distribution width ratio 13. 2 % 10.0- 14.5 Automated blood platelet count (count/volume) 366 10*3/uL [...] 10*3 1.0-4.0 Blood monocytes automated count (number/volume) 0. 3 10*3 0.0-1.0 Automated eosinophil count 0.3 10*3/uL 0 .0-0.3 Automated blood basophil count (count/volume) 0.0 10*3/uL 0.0-0.1 Whole blood basic metabolic panel - 11/16 10/06 03:29 Serum or plasma sodium measurement (moles/volume) 137 mmol/L 135-145 Serum or plasma potassium measurement (moles/volume) 4.8 mmol/L 3.6-5.0 Serum or plasma chloride measurement (moles/volume) 106 mmol/L 98-107 Carbon dioxide 24 mmol/L 21-32 Serum or plasma anion gap determination (moles/volume) 7 mmol/L 5-14 Serum or plasma urea nitrogen measurement (mass/volume ) 5 mg/dL 7-18 Serum or plasma creatinine measurement (mass/volume) 0.58 mg/dL 0.60-1.30 Serum or plasma urea nitrogen/creatinine mass ratio 9 NRG Serum or plasma creatinine measurement w ith calculation of estimated glomerular filtration rate > NRG Serum or plasma glucose measurement (mass/volume) 136 mg/dL 70-105 Serum or plasma calcium measurement (mass/volume) 7.9 mg/dL 8.5-10.1 Serum or plasma phosphate measurement (m ass/volume) - 11/26/18 03:29 Serum or plasma phosphate measurement (mass/volume) 1.8 mg/dL 2.3-4.7 Magnesium - 11/26/18 03:29 Magnesium 1.9 mg/dL 1.8-2.4 Serum or plasma triglyceride measurement (mass/volume) - 11/26/18 03:29 Serum or plasma triglyceride measurement (mass/volume) 78 mg/dL <150 PREALBUMIN - 11/26/18 03:29 PREALBUM <3.0 18.0-37.0 Blood lactic acid measurement (moles/vol ume) - 11/26/18 20:15 Blood lactic acid measurement (moles/volume) 1.09 mmol/L 0.50-2.00 Bacterial blood culture - 11/26/18 20:15 Bacterial blood culture NG NRG Bacterial blood culture - 11/26/18 20:19 Bacterial blood culture NG NRG Complete blood count (CBC) with automate d white blood cell (WBC) differential - 11/27/18 03:49 Blood leukocytes automated count (number/volume) 17.1 10*3/uL 4.3-11.0 Blood erythrocytes automated count (number/volume) 3.59 10*6/uL 4.35-5.85 Venous blood hemoglobin measurement (mass/volume) 10.5 g/dL 11.5-16.0 Blood hematocrit (volume fraction) 32 % 35-52 Automated erythrocyte mean corpuscular volume 90 [ foz_us] 80-99 Automated erythrocyte mean corpuscular h emoglobin (mass per erythrocyte) 29 pg 25-34 Automated erythrocyte mean corpuscular h emoglobin concentration measurement (mass/volume) 32 g/dL 32-36 Automated erythrocyte distribution width ratio 12. 9 % 10.0- 14.5 Automated blood platelet count (count/volume) 347 10*3/uL [...] 10*3 1.0-4.0 Blood monocytes automated count (number/volume) 0. 7 10*3 0.0-1.0 Automated eosinophil count 0.2 10*3/uL 0 .0-0.3 Automated blood basophil count (count/volume) 0.0 10*3/uL 0.0-0.1 Comprehensive metabolic panel - 11/27/18 03:49 Serum or plasma sodium measurement (moles/volume) 136 mmol/L 135-145 Serum or plasma potassium measurement (moles/volume) 3.7 mmol/L 3.6-5.0 Serum or plasma chloride measurement (moles/volume) 102 mmol/L 98-107 Carbon dioxide 27 mmol/L 21-32 Serum or plasma anion gap determination (moles/volume) 7 mmol/L 5-14 Serum or plasma urea nitrogen measurement (mass/volume ) 5 mg/dL 7-18 Serum or plasma creatinine measurement (mass/volume) 0.48 mg/dL 0.60-1.30 Serum or plasma urea nitrogen/creatinine mass ratio 10 NRG Serum or plasma creatinine measurement w ith calculation of estimated glomerular filtration rate > NRG Serum or plasma glucose measurement (mass/volume) 121 mg/dL 70-105 Serum or plasma calcium measurement (mass/volume) 7.8 mg/dL 8.5-10.1 Serum or plasma total bilirubin measurement (mass/volu me) 0.7 mg/dL 0.1-1.0 Serum or plasma alkaline phosphatase vaibhav surement (enzymatic activity/volume) 292 U/L 40-136 Serum or plasma aspartate aminotransfera se measurement (enzymatic activity/volume) 63 U/L 5-34 Serum or plasma alanine aminotransferase measurement (enzymatic activity/volume) 128 U/L 0-55 Serum or plasma protein measurement (mass/volume) 5.0 g/dL 6.4-8.2 Serum or plasma albumin measurement (mass/volume) 2.2 g/dL 3.2-4.5 CALCIUM CORRECTED 9.2 mg/dL 8.5-10.1 Serum or plasma phosphate measurement (m ass/volume) - 11/27/18 03:49 Serum or plasma phosphate measurement (mass/volume) 2.8 mg/dL 2.3-4.7 Magnesium - 11/27/18 03:49 Magnesium 1.4 mg/dL 1.8-2.4 Methicillin resistant Staphylococcus aur eus (MRSA) screening culture - 11/27/18 08:10 Methicillin resistant Staphylococcus aureus (MRSA) scr eening culture NEG NRG Complete blood count (CBC) with automate d white blood cell (WBC) differential - 11/28/18 03:40 Blood leukocytes automated count (number/volume) 12.3 10*3/uL 4.3-11.0 Blood erythrocytes automated count (number/volume) 3.61 10*6/uL 4.35-5.85 Venous blood hemoglobin measurement (mass/volume) 10.7 g/dL 11.5-16.0 Blood hematocrit (volume fraction) 33 % 35-52 Automated erythrocyte mean corpuscular volume 90 [ foz_us] 80-99 Automated erythrocyte mean corpuscular h emoglobin (mass per erythrocyte) 30 pg 25-34 Automated erythrocyte mean corpuscular h emoglobin concentration measurement (mass/volume) 33 g/dL 32-36 Automated erythrocyte distribution width ratio 13. 0 % 10.0- 14.5 Automated blood platelet count (count/volume) 425 10*3/uL [...] 10*3 1.0-4.0 Blood monocytes automated count (number/volume) 0. 7 10*3 0.0-1.0 Automated eosinophil count 0.5 10*3/uL 0 .0-0.3 Automated blood basophil count (count/volume) 0.0 10*3/uL 0.0-0.1 Comprehensive metabolic panel - 11/28/18 03:45 Serum or plasma sodium measurement (moles/volume) 138 mmol/L 135-145 Serum or plasma potassium measurement (moles/volume) 3.5 mmol/L 3.6-5.0 Serum or plasma chloride measurement (moles/volume) 103 mmol/L 98-107 Carbon dioxide 28 mmol/L 21-32 Serum or plasma anion gap determination (moles/volume) 7 mmol/L 5-14 Serum or plasma urea nitrogen measurement (mass/volume ) 7 mg/dL 7-18 Serum or plasma creatinine measurement (mass/volume) 0.49 mg/dL 0.60-1.30 Serum or plasma urea nitrogen/creatinine mass ratio 14 NRG Serum or plasma creatinine measurement w ith calculation of estimated glomerular filtration rate > NRG Serum or plasma glucose measurement (mass/volume) 106 mg/dL 70-105 Serum or plasma calcium measurement (mass/volume) 8.1 mg/dL 8.5-10.1 Serum or plasma total bilirubin measurement (mass/volu me) 0.5 mg/dL 0.1-1.0 Serum or plasma alkaline phosphatase vaibhav surement (enzymatic activity/volume) 271 U/L 40-136 Serum or plasma aspartate aminotransfera se measurement (enzymatic activity/volume) 37 U/L 5-34 Serum or plasma alanine aminotransferase measurement (enzymatic activity/volume) 92 U/L 0-55 Serum or plasma protein measurement (mass/volume) 5.5 g/dL 6.4-8.2 Serum or plasma albumin measurement (mass/volume) 2.4 g/dL 3.2-4.5 CALCIUM CORRECTED 9.4 mg/dL 8.5-10.1 Serum or plasma phosphate measurement (m ass/volume) - 11/28/18 03:45 Serum or plasma phosphate measurement (mass/volume) 2.7 mg/dL 2.3-4.7 Magnesium - 11/28/18 03:45 Magnesium 1.8 mg/dL 1.8-2.4 Vancomycin trough - 11/28/18 20:00 Vancomycin trough 7.2 ug/mL 10.0-20.0 Complete blood count (CBC) with automate d white blood cell (WBC) differential - 11/29/18 03:44 Blood leukocytes automated count (number/volume) 8.9 10*3/uL 4.3-11.0 Blood erythrocytes automated count (number/volume) 3.57 10*6/uL 4.35-5.85 Venous blood hemoglobin measurement (mass/volume) 10.5 g/dL 11.5-16.0 Blood hematocrit (volume fraction) 32 % 35-52 Automated erythrocyte mean corpuscular volume 91 [ foz_us] 80-99 Automated erythrocyte mean corpuscular h emoglobin (mass per erythrocyte) 29 pg 25-34 Automated erythrocyte mean corpuscular h emoglobin concentration measurement (mass/volume) 33 g/dL 32-36 Automated erythrocyte distribution width ratio 12. 8 % 10.0- 14.5 Automated blood platelet count (count/volume) 392 10*3/uL [...] 10*3 1.0-4.0 Blood monocytes automated count (number/volume) 0. 9 10*3 0.0-1.0 Automated eosinophil count 0.5 10*3/uL 0 .0-0.3 Automated blood basophil count (count/volume) 0.0 10*3/uL 0.0-0.1 Whole blood basic metabolic panel - 11/16 01/04 03:44 Serum or plasma sodium measurement (moles/volume) 137 mmol/L 135-145 Serum or plasma potassium measurement (moles/volume) 3.3 mmol/L 3.6-5.0 Serum or plasma chloride measurement (moles/volume) 103 mmol/L 98-107 Carbon dioxide 25 mmol/L 21-32 Serum or plasma anion gap determination (moles/volume) 9 mmol/L 5-14 Serum or plasma urea nitrogen measurement (mass/volume ) 5 mg/dL 7-18 Serum or plasma creatinine measurement (mass/volume) 0.48 mg/dL 0.60-1.30 Serum or plasma urea nitrogen/creatinine mass ratio 10 NRG Serum or plasma creatinine measurement w ith calculation of estimated glomerular filtration rate > NRG Serum or plasma glucose measurement (mass/volume) 123 mg/dL 70-105 Serum or plasma calcium measurement (mass/volume) 8.2 mg/dL 8.5-10.1 Serum or plasma phosphate measurement (m ass/volume) - 11/29/18 03:44 Serum or plasma phosphate measurement (mass/volume) 3.2 mg/dL 2.3-4.7 Magnesium - 11/29/18 03:44 Magnesium 1.7 mg/dL 1.8-2.4 Liver function panel (serum or plasma al k phos, alb, total and direct bili, total protein, ALT, AST) - 11/29/18 03:44 Serum or plasma total bilirubin measurement (mass/volu me) 0.3 mg/dL 0.1-1.0 Serum or plasma alkaline phosphatase vaibhav surement (enzymatic activity/volume) 213 U/L 40-136 Serum or plasma aspartate aminotransfera se measurement (enzymatic activity/volume) 34 U/L 5-34 Serum or plasma alanine aminotransferase measurement (enzymatic activity/volume) 69 U/L 0-55 Serum or plasma protein measurement (mass/volume) 5.7 g/dL 6.4-8.2 Serum or plasma albumin measurement (mass/volume) 2.5 g/dL 3.2-4.5 Bilirubin direct 0.2 mg/dL 0.0-0.3 Serum or plasma indirect bilirubin measurement (mass/v olume) 0.1 mg/dL NRG Complete blood count (CBC) with automate d white blood cell (WBC) differential - 11/30/18 05:16 Blood leukocytes automated count (number/volume) 9.8 10*3/uL 4.3-11.0 Blood erythrocytes automated count (number/volume) 3.68 10*6/uL 4.35-5.85 Venous blood hemoglobin measurement (mass/volume) 10.8 g/dL 11.5-16.0 Blood hematocrit (volume fraction) 33 % 35-52 Automated erythrocyte mean corpuscular volume 89 [ foz_us] 80-99 Automated erythrocyte mean corpuscular h emoglobin (mass per erythrocyte) 29 pg 25-34 Automated erythrocyte mean corpuscular h emoglobin concentration measurement (mass/volume) 33 g/dL 32-36 Automated erythrocyte distribution width ratio 13. 2 % 10.0- 14.5 Automated blood platelet count (count/volume) 491 10*3/uL [...] 10*3 1.0-4.0 Blood monocytes automated count (number/volume) 1. 0 10*3 0.0-1.0 Automated eosinophil count 0.5 10*3/uL 0 .0-0.3 Automated blood basophil count (count/volume) 0.1 10*3/uL 0.0-0.1 Comprehensive metabolic panel - 11/30/18 05:16 Serum or plasma sodium measurement (moles/volume) 135 mmol/L 135-145 Serum or plasma potassium measurement (moles/volume) 4.3 mmol/L 3.6-5.0 Serum or plasma chloride measurement (moles/volume) 105 mmol/L 98-107 Carbon dioxide 21 mmol/L 21-32 Serum or plasma anion gap determination (moles/volume) 9 mmol/L 5-14 Serum or plasma urea nitrogen measurement (mass/volume ) 5 mg/dL 7-18 Serum or plasma creatinine measurement (mass/volume) 0.52 mg/dL 0.60-1.30 Serum or plasma urea nitrogen/creatinine mass ratio 10 NRG Serum or plasma creatinine measurement w ith calculation of estimated glomerular filtration rate > NRG Serum or plasma glucose measurement (mass/volume) 126 mg/dL 70-105 Serum or plasma calcium measurement (mass/volume) 8.5 mg/dL 8.5-10.1 Serum or plasma total bilirubin measurement (mass/volu me) 0.3 mg/dL 0.1-1.0 Serum or plasma alkaline phosphatase vaibhav surement (enzymatic activity/volume) 228 U/L 40-136 Serum or plasma aspartate aminotransfera se measurement (enzymatic activity/volume) 43 U/L 5-34 Serum or plasma alanine aminotransferase measurement (enzymatic activity/volume) 69 U/L 0-55 Serum or plasma protein measurement (mass/volume) 6.1 g/dL 6.4-8.2 Serum or plasma albumin measurement (mass/volume) 2.6 g/dL 3.2-4.5 CALCIUM CORRECTED 9.6 mg/dL 8.5-10.1 Serum or plasma phosphate measurement (m ass/volume) - 11/30/18 05:16 Serum or plasma phosphate measurement (mass/volume) 4.0 mg/dL 2.3-4.7 Magnesium - 11/30/18 05:16 Magnesium 1.9 mg/dL 1.8-2.4 Vancomycin trough - 11/30/18 12:25 Vancomycin trough 17.4 ug/mL 10.0-20.0 Capillary blood glucose measurement by g lucometer (mass/volume) - 12/01/18 05:28 Capillary blood glucose measurement by glucometer (mas s/volume) 132 mg/dL 70-110 Complete blood count (CBC) with automate d white blood cell (WBC) differential - 12/02/18 05:13 Blood leukocytes automated count (number/volume) 11.4 10*3/uL 4.3-11.0 Blood erythrocytes automated count (number/volume) 3.84 10*6/uL 4.35-5.85 Venous blood hemoglobin measurement (mass/volume) 11.1 g/dL 11.5-16.0 Blood hematocrit (volume fraction) 34 % 35-52 Automated erythrocyte mean corpuscular volume 89 [ foz_us] 80-99 Automated erythrocyte mean corpuscular h emoglobin (mass per erythrocyte) 29 pg 25-34 Automated erythrocyte mean corpuscular h emoglobin concentration measurement (mass/volume) 32 g/dL 32-36 Automated erythrocyte distribution width ratio 13. 2 % 10.0- 14.5 Automated blood platelet count (count/volume) 455 10*3/uL [...] 10*3 1.0-4.0 Blood monocytes automated count (number/volume) 1. 1 10*3 0.0-1.0 Automated eosinophil count 0.6 10*3/uL 0 .0-0.3 Automated blood basophil count (count/volume) 0.1 10*3/uL 0.0-0.1 Comprehensive metabolic panel - 12/02/18 05:13 Serum or plasma sodium measurement (moles/volume) 133 mmol/L 135-145 Serum or plasma potassium measurement (moles/volume) 4.3 mmol/L 3.6-5.0 Serum or plasma chloride measurement (moles/volume) 103 mmol/L 98-107 Carbon dioxide 21 mmol/L 21-32 Serum or plasma anion gap determination (moles/volume) 9 mmol/L 5-14 Serum or plasma urea nitrogen measurement (mass/volume ) 8 mg/dL 7-18 Serum or plasma creatinine measurement (mass/volume) 0.53 mg/dL 0.60-1.30 Serum or plasma urea nitrogen/creatinine mass ratio 15 NRG Serum or plasma creatinine measurement w ith calculation of estimated glomerular filtration rate > NRG Serum or plasma glucose measurement (mass/volume) 127 mg/dL 70-105 Serum or plasma calcium measurement (mass/volume) 8.8 mg/dL 8.5-10.1 Serum or plasma total bilirubin measurement (mass/volu me) 0.3 mg/dL 0.1-1.0 Serum or plasma alkaline phosphatase vaibhav surement (enzymatic activity/volume) 217 U/L 40-136 Serum or plasma aspartate aminotransfera se measurement (enzymatic activity/volume) 49 U/L 5-34 Serum or plasma alanine aminotransferase measurement (enzymatic activity/volume) 66 U/L 0-55 Serum or plasma protein measurement (mass/volume) 6.7 g/dL 6.4-8.2 Serum or plasma albumin measurement (mass/volume) 2.8 g/dL 3.2-4.5 CALCIUM CORRECTED 9.8 mg/dL 8.5-10.1 Blood manual differential performed dete ction - 12/02/18 05:13 Blood monocytes/100 leukocytes 12 % NRG Manual blood segmented neutrophils/100 leukocytes 77 % NRG Manual blood lymphocytes/100 leukocytes 10 % NRG Manual eosinophils/100 leukocytes in nose 1 % NRG Serum or plasma phosphate measurement (m ass/volume) - 12/02/18 05:13 Serum or plasma phosphate measurement (mass/volume) 4.5 mg/dL 2.3-4.7 Magnesium - 12/02/18 05:13 Magnesium 1.9 mg/dL 1.8-2.4 Capillary blood glucose measurement by g lucometer (mass/volume) - 12/03/18 05:20 Capillary blood glucose measurement by glucometer (mas s/volume) 112 mg/dL 70-110 Capillary blood glucose measurement by g lucometer (mass/volume) - 12/04/18 05:32 Capillary blood glucose measurement by glucometer (mas s/volume) 117 mg/dL 70-110 Complete blood count (CBC) with automate d white blood cell (WBC) differential - 12/04/18 09:42 Blood leukocytes automated count (number/volume) 10.6 10*3/uL 4.3-11.0 Blood erythrocytes automated count (number/volume) 3.74 10*6/uL 4.35-5.85 Venous blood hemoglobin measurement (mass/volume) 10.9 g/dL 11.5-16.0 Blood hematocrit (volume fraction) 34 % 35-52 Automated erythrocyte mean corpuscular volume 90 [ foz_us] 80-99 Automated erythrocyte mean corpuscular h emoglobin (mass per erythrocyte) 29 pg 25-34 Automated erythrocyte mean corpuscular h emoglobin concentration measurement (mass/volume) 33 g/dL 32-36 Automated erythrocyte distribution width ratio 13. 6 % 10.0- 14.5 Automated blood platelet count (count/volume) 425 10*3/uL [...] 10*3 1.0-4.0 Blood monocytes automated count (number/volume) 0. 9 10*3 0.0-1.0 Automated eosinophil count 0.6 10*3/uL 0 .0-0.3 Automated blood basophil count (count/volume) 0.1 10*3/uL 0.0-0.1 Comprehensive metabolic panel - 12/04/18 09:42 Serum or plasma sodium measurement (moles/volume) 129 mmol/L 135-145 Serum or plasma potassium measurement (moles/volume) 4.1 mmol/L 3.6-5.0 Serum or plasma chloride measurement (moles/volume) 103 mmol/L 98-107 Carbon dioxide 23 mmol/L 21-32 Serum or plasma anion gap determination (moles/volume) 3 mmol/L 5-14 Serum or plasma urea nitrogen measurement (mass/volume ) 11 mg/dL 7-18 Serum or plasma creatinine measurement (mass/volume) 0.59 mg/dL 0.60-1.30 Serum or plasma urea nitrogen/creatinine mass ratio 19 NRG Serum or plasma creatinine measurement w ith calculation of estimated glomerular filtration rate > NRG Serum or plasma glucose measurement (mass/volume) 125 mg/dL 70-105 Serum or plasma calcium measurement (mass/volume) 9.0 mg/dL 8.5-10.1 Serum or plasma total bilirubin measurement (mass/volu me) 0.3 mg/dL 0.1-1.0 Serum or plasma alkaline phosphatase vaibhav surement (enzymatic activity/volume) 230 U/L 40-136 Serum or plasma aspartate aminotransfera se measurement (enzymatic activity/volume) 46 U/L 5-34 Serum or plasma alanine aminotransferase measurement (enzymatic activity/volume) 70 U/L 0-55 Serum or plasma protein measurement (mass/volume) 6.9 g/dL 6.4-8.2 Serum or plasma albumin measurement (mass/volume) 2.8 g/dL 3.2-4.5 CALCIUM CORRECTED 10.0 mg/dL 8.5-10.1 Capillary blood glucose measurement by g lucometer (mass/volume) - 12/05/18 06:22 Capillary blood glucose measurement by glucometer (mas s/volume) 127 mg/dL 70-110 Capillary blood glucose measurement by g lucometer (mass/volume) - 12/06/18 06:12 Capillary blood glucose measurement by glucometer (mas s/volume) 128 mg/dL 70-110 Mycobacterium species detection by organ ism specific culture - 12/06/18 09:25 Sputum Gram stain - 12/06/18 09:25 Sputum Gram stain columnar epithelial cells NRG Bacteria identification in bronchial spe cimen by aerobe culture - 12/06/18 09:25 QUANTITY OF GROWTH . NRG Bacteria identification in bronchial specimen by aerob e culture USUAL RESP NRG FTX;REPORTABLE GREATER THAN 20,000 CFU/ML NRG C FUNGUS SPUTUM FLUID TISSUE - 12/06/18 09:25 C FUNGUS SPUTUM FLUID TISSUE NG N RG Capillary blood glucose measurement by g lucometer (mass/volume) - 12/07/18 06:36 Capillary blood glucose measurement by glucometer (mas s/volume) 105 mg/dL 70-110 Capillary blood glucose measurement by g lucometer (mass/volume) - 12/08/18 05:42 Capillary blood glucose measurement by glucometer (mas s/volume) 122 mg/dL 70-110 Sputum Gram stain - 12/08/18 10:33 Sputum Gram stain Mixed Bacterial Claritza NRG Bacterial sputum culture - 12/08/18 10:3 3 FREE TEXT EXTERNAL LARGE AMOUNT NRG QUANTITY OF GROWTH . NRG Bacterial sputum culture USUAL RESP NRG Capillary blood glucose measurement by g lucometer (mass/volume) - 12/08/18 17:00 Capillary blood glucose measurement by glucometer (mas s/volume) 108 mg/dL 70-110 Capillary blood glucose measurement by g lucometer (mass/volume) - 12/09/18 05:30 Capillary blood glucose measurement by glucometer (mas s/volume) 96 mg/dL 70-110 Complete blood count (CBC) with automate d white blood cell (WBC) differential - 12/09/18 09:23 Blood leukocytes automated count (number/volume) 7.1 10*3/uL 4.3-11.0 Blood erythrocytes automated count (number/volume) 3.55 10*6/uL 4.35-5.85 Venous blood hemoglobin measurement (mass/volume) 10.5 g/dL 11.5-16.0 Blood hematocrit (volume fraction) 32 % 35-52 Automated erythrocyte mean corpuscular volume 90 [ foz_us] 80-99 Automated erythrocyte mean corpuscular h emoglobin (mass per erythrocyte) 30 pg 25-34 Automated erythrocyte mean corpuscular h emoglobin concentration measurement (mass/volume) 33 g/dL 32-36 Automated erythrocyte distribution width ratio 13. 8 % 10.0- 14.5 Automated blood platelet count (count/volume) 380 10*3/uL 130-400 Automated blood platelet mean volume measurement 8.0 [foz_us] 7.4-10.4 Automated blood neutrophils/100 leukocytes 68 % 42-75 Automated blood lymphocytes/100 leukocytes 18 % 12-44 Blood monocytes/100 leukocytes 7 % 0-12 Automated blood eosinophils/100 leukocytes 7 % 0-10 Automated blood basophils/100 leukocytes 1 % 0-10 Blood neutrophils automated count (number/volume) 4.8 10*3 1.8-7.8 Blood lymphocytes automated count (number/volume) 1.2 10*3 1.0-4.0 Blood monocytes automated count (number/volume) 0. 5 10*3 0.0-1.0 Automated eosinophil count 0.5 10*3/uL 0 .0-0.3 Automated blood basophil count (count/volume) 0.0 10*3/uL 0.0-0.1 Comprehensive metabolic panel - 12/09/18 09:23 Serum or plasma sodium measurement (moles/volume) 135 mmol/L 135-145 Serum or plasma potassium measurement (moles/volume) 4.3 mmol/L 3.6-5.0 Serum or plasma chloride measurement (moles/volume) 100 mmol/L 98-107 Carbon dioxide 25 mmol/L 21-32 Serum or plasma anion gap determination (moles/volume) 10 mmol/L 5-14 Serum or plasma urea nitrogen measurement (mass/volume ) 10 mg/dL 7-18 Serum or plasma creatinine measurement (mass/volume) 0.58 mg/dL 0.60-1.30 Serum or plasma urea nitrogen/creatinine mass ratio 17 NRG Serum or plasma creatinine measurement w ith calculation of estimated glomerular filtration rate > NRG Serum or plasma glucose measurement (mass/volume) 87 mg/dL 70-105 Serum or plasma calcium measurement (mass/volume) 9.3 mg/dL 8.5-10.1 Serum or plasma total bilirubin measurement (mass/volu me) 0.5 mg/dL 0.1-1.0 Serum or plasma alkaline phosphatase vaibhav surement (enzymatic activity/volume) 913 U/L 40-136 Serum or plasma aspartate aminotransfera se measurement (enzymatic activity/volume) 237 U/L 5-34 Serum or plasma alanine aminotransferase measurement (enzymatic activity/volume) 270 U/L 0-55 Serum or plasma protein measurement (mass/volume) 7.0 g/dL 6.4-8.2 Serum or plasma albumin measurement (mass/volume) 2.9 g/dL 3.2-4.5 CALCIUM CORRECTED 10.2 mg/dL 8.5-10.1 Capillary blood glucose measurement by g lucometer (mass/volume) - 12/09/18 16:18 Capillary blood glucose measurement by glucometer (mas s/volume) 80 mg/dL 70-110 Capillary blood glucose measurement by g lucometer (mass/volume) - 12/09/18 20:29 Capillary blood glucose measurement by glucometer (mas s/volume) 81 mg/dL 70-110 Capillary blood glucose measurement by g lucometer (mass/volume) - 12/10/18 05:03 Capillary blood glucose measurement by glucometer (mas s/volume) 81 mg/dL 70-110 Capillary blood glucose measurement by g lucometer (mass/volume) - 12/10/18 17:15 Capillary blood glucose measurement by glucometer (mas s/volume) 82 mg/dL 70-110 Capillary blood glucose measurement by g lucometer (mass/volume) - 12/11/18 06:32 Capillary blood glucose measurement by glucometer (mas s/volume) 65 mg/dL 70-110 Capillary blood glucose measurement by g lucometer (mass/volume) - 12/11/18 07:56 Capillary blood glucose measurement by glucometer (mas s/volume) 75 mg/dL 70-110 C FUNGUS SPUTUM FLUID TISSUE - 01/08/19 13:00 QUANTITY OF GROWTH Many NRG IDENTIFICATION TO FOLLOW FURTHER IDENTIFICATION TO FOLLOW NRG C FUNGUS SPUTUM FLUID TISSUE [id number] N RG Mycobacterium species detection by organ ism specific culture - 01/08/19 13:44 Mycobacterium species detection by organism specific c ulture TNP NRG Automated blood complete blood count (he mogram) panel - 01/08/19 18:45 Blood leukocytes automated count (number/volume) 26.2 10*3/uL 4.3-11.0 Blood erythrocytes automated count (number/volume) 4.92 10*6/uL 4.35-5.85 Venous blood hemoglobin measurement (mass/volume) 14.2 g/dL 11.5-16.0 Blood hematocrit (volume fraction) 44 % 35-52 Automated erythrocyte mean corpuscular volume 90 [ foz_us] 80-99 Automated erythrocyte mean corpuscular h emoglobin (mass per erythrocyte) 29 pg 25-34 Automated erythrocyte mean corpuscular h emoglobin concentration measurement (mass/volume) 32 g/dL 32-36 Automated erythrocyte distribution width ratio 14. 9 % 10.0- 14.5 Automated blood platelet count (count/volume) 424 10*3/uL 130-400 Automated blood platelet mean volume measurement 9.2 [foz_us] 7.4-10.4 Comprehensive metabolic panel - 01/08/19 18:45 Serum or plasma sodium measurement (moles/volume) 143 mmol/L 135-145 Serum or plasma potassium measurement (moles/volume) 3.7 mmol/L 3.6-5.0 Serum or plasma chloride measurement (moles/volume) 109 mmol/L 98-107 Carbon dioxide 11 mmol/L 21-32 Serum or plasma anion gap determination (moles/volume) 23 mmol/L 5-14 Serum or plasma urea nitrogen measurement (mass/volume ) 12 mg/dL 7-18 Serum or plasma creatinine measurement (mass/volume) 0.87 mg/dL 0.60-1.30 Serum or plasma urea nitrogen/creatinine mass ratio 14 NRG Serum or plasma creatinine measurement w ith calculation of estimated glomerular filtration rate > NRG Serum or plasma glucose measurement (mass/volume) 206 mg/dL 70-105 Serum or plasma calcium measurement (mass/volume) 9.6 mg/dL 8.5-10.1 Serum or plasma total bilirubin measurement (mass/volu me) 0.4 mg/dL 0.1-1.0 Serum or plasma alkaline phosphatase vaibhav surement (enzymatic activity/volume) 153 U/L 40-136 Serum or plasma aspartate aminotransfera se measurement (enzymatic activity/volume) 45 U/L 5-34 Serum or plasma alanine aminotransferase measurement (enzymatic activity/volume) 25 U/L 0-55 Serum or plasma protein measurement (mass/volume) 7.6 g/dL 6.4-8.2 Serum or plasma albumin measurement (mass/volume) 3.4 g/dL 3.2-4.5 CALCIUM CORRECTED 10.1 mg/dL 8.5-10.1 PREALBUMIN - 01/08/19 18:45 PREALBUM 7.8 % 18.0-37.0 Automated blood complete blood count (he mogram) panel - 01/09/19 05:05 Blood leukocytes automated count (number/volume) 18.5 10*3/uL 4.3-11.0 Blood erythrocytes automated count (number/volume) 4.46 10*6/uL 4.35-5.85 Venous blood hemoglobin measurement (mass/volume) 13.0 g/dL 11.5-16.0 Blood hematocrit (volume fraction) 39 % 35-52 Automated erythrocyte mean corpuscular volume 88 [ foz_us] 80-99 Automated erythrocyte mean corpuscular h emoglobin (mass per erythrocyte) 29 pg 25-34 Automated erythrocyte mean corpuscular h emoglobin concentration measurement (mass/volume) 33 g/dL 32-36 Automated erythrocyte distribution width ratio 14. 8 % 10.0- 14.5 Automated blood platelet count (count/volume) 296 10*3/uL 130-400 Automated blood platelet mean volume measurement 9.1 [foz_us] 7.4-10.4 PT panel in platelet poor plasma by coag ulation assay - 01/09/19 05:05 Prothrombin time (PT) in platelet poor plasma by coagu lation assay 14.2 s 12.2-14.7 INR in platelet poor plasma or blood by coagulation as say 1.1 0.8-1.4 Comprehensive metabolic panel - 01/09/19 05:05 Serum or plasma sodium measurement (moles/volume) 143 mmol/L 135-145 Serum or plasma potassium measurement (moles/volume) 3.7 mmol/L 3.6-5.0 Serum or plasma chloride measurement (moles/volume) 109 mmol/L 98-107 Carbon dioxide 15 mmol/L 21-32 Serum or plasma anion gap determination (moles/volume) 19 mmol/L 5-14 Serum or plasma urea nitrogen measurement (mass/volume ) 12 mg/dL 7-18 Serum or plasma creatinine measurement (mass/volume) 0.75 mg/dL 0.60-1.30 Serum or plasma urea nitrogen/creatinine mass ratio 16 NRG Serum or plasma creatinine measurement w ith calculation of estimated glomerular filtration rate > NRG Serum or plasma glucose measurement (mass/volume) 174 mg/dL 70-105 Serum or plasma calcium measurement (mass/volume) 9.0 mg/dL 8.5-10.1 Serum or plasma total bilirubin measurement (mass/volu me) 0.4 mg/dL 0.1-1.0 Serum or plasma alkaline phosphatase vaibhav surement (enzymatic activity/volume) 120 U/L 40-136 Serum or plasma aspartate aminotransfera se measurement (enzymatic activity/volume) 42 U/L 5-34 Serum or plasma alanine aminotransferase measurement (enzymatic activity/volume) 27 U/L 0-55 Serum or plasma protein measurement (mass/volume) 6.5 g/dL 6.4-8.2 Serum or plasma albumin measurement (mass/volume) 2.8 g/dL 3.2-4.5 CALCIUM CORRECTED 10.0 mg/dL 8.5-10.1 Serum or plasma phosphate measurement (m ass/volume) - 01/09/19 05:05 Serum or plasma phosphate measurement (mass/volume) 4.5 mg/dL 2.3-4.7 Magnesium - 01/09/19 05:05 Magnesium 1.2 mg/dL 1.8-2.4 Serum or plasma triglyceride measurement (mass/volume) - 01/09/19 05:05 Serum or plasma triglyceride measurement (mass/volume) 79 mg/dL <150 Complete blood count (CBC) with automate d white blood cell (WBC) differential - 04/29/19 10:58 Blood leukocytes automated count (number/volume) 11.8 10*3/uL 4.3-11.0 Blood erythrocytes automated count (number/volume) 2.79 10*6/uL 4.35-5.85 Venous blood hemoglobin measurement (mass/volume) 8.9 g/dL 11.5-16.0 Blood hematocrit (volume fraction) 28 % 35-52 Automated erythrocyte mean corpuscular volume 100 [foz_us] 80-99 Automated erythrocyte mean corpuscular h emoglobin (mass per erythrocyte) 32 pg 25-34 Automated erythrocyte mean corpuscular h emoglobin concentration measurement (mass/volume) 32 g/dL 32-36 Automated erythrocyte distribution width ratio 13. 7 % 10.0- 14.5 Automated blood platelet count (count/volume) 467 10*3/uL 130-400 Automated blood platelet mean volume measurement 8.2 [foz_us] 7.4-10.4 Automated blood neutrophils/100 leukocytes 81 % 42-75 Automated blood lymphocytes/100 leukocytes 13 % 12-44 Blood monocytes/100 leukocytes 5 % 0-12 Automated blood eosinophils/100 leukocytes 1 % 0-10 Automated blood basophils/100 leukocytes 0 % 0-10 Blood neutrophils automated count (number/volume) 9.6 10*3 1.8-7.8 Blood lymphocytes automated count (number/volume) 1.5 10*3 1.0-4.0 Blood monocytes automated count (number/volume) 0. 5 10*3 0.0-1.0 Automated eosinophil count 0.1 10*3/uL 0 .0-0.3 Automated blood basophil count (count/volume) 0.0 10*3/uL 0.0-0.1 Comprehensive metabolic panel - 04/29/19 10:58 Serum or plasma sodium measurement (moles/volume) 140 mmol/L 135-145 Serum or plasma potassium measurement (moles/volume) 4.2 mmol/L 3.6-5.0 Serum or plasma chloride measurement (moles/volume) 101 mmol/L 98-107 Carbon dioxide 28 mmol/L 21-32 Serum or plasma anion gap determination (moles/volume) 11 mmol/L 5-14 Serum or plasma urea nitrogen measurement (mass/volume ) 20 mg/dL 7-18 Serum or plasma creatinine measurement (mass/volume) 0.66 mg/dL 0.60-1.30 Serum or plasma urea nitrogen/creatinine mass ratio 30 NRG Serum or plasma creatinine measurement w ith calculation of estimated glomerular filtration rate > NRG Serum or plasma glucose measurement (mass/volume) 159 mg/dL 70-105 Serum or plasma calcium measurement (mass/volume) 10.1 mg/dL 8.5-10.1 Serum or plasma total bilirubin measurement (mass/volu me) 0.3 mg/dL 0.1-1.0 Serum or plasma alkaline phosphatase vaibhav surement (enzymatic activity/volume) 87 U/L 40-136 Serum or plasma aspartate aminotransfera se measurement (enzymatic activity/volume) 14 U/L 5-34 Serum or plasma alanine aminotransferase measurement (enzymatic activity/volume) 18 U/L 0-55 Serum or plasma protein measurement (mass/volume) 7.9 g/dL 6.4-8.2 Serum or plasma albumin measurement (mass/volume) 3.6 g/dL 3.2-4.5 CALCIUM CORRECTED 10.4 mg/dL 8.5-10.1 Serum or plasma C reactive protein measu rement (mass/volume) - 04/29/19 10:58 Serum or plasma C reactive protein measurement (mass/v olume) 6.79 mg/dL 0.00-0.50 Blood lactic acid measurement (moles/vol ume) - 04/29/19 10:58 Blood lactic acid measurement (moles/volume) 1.02 mmol/L 0.50-2.00 Bacterial blood culture - 04/29/19 10:58 Bacterial blood culture NG NRG Complete urinalysis with reflex to cultu re - 04/29/19 12:24 Urine color determination YELLOW NRG Urine clarity determination CLEAR NR G Urine pH measurement by test strip 6 5-9 Specific gravity of urine by test strip 1.015 1.016-1.022 Urine protein assay by test strip, semi-quantitative 1+ NEGATIVE Urine glucose detection by automated test strip NE GATIVE NEGATIVE Erythrocytes detection in urine sediment by light micr oscopy NEGATIVE NEGATIVE Urine ketones detection by automated test strip NE GATIVE NEGATIVE Urine nitrite detection by test strip NEGATIVE NEGATIVE Urine total bilirubin detection by test strip NEGA TIVE NEGATIVE Urine urobilinogen measurement by automated test strip (mass/volume) NORMAL NORMAL Urine leukocyte esterase detection by dipstick 3+ NEGATIVE Automated urine sediment erythrocyte cou nt by microscopy (number/high power field) NONE NRG Automated urine sediment leukocyte count by microscopy (number/high power field) [HPF] NRG Bacteria detection in urine sediment by light microsco py MODERATE NRG Squamous epithelial cells detection in u rine sediment by light microscopy 5-10 NRG Crystals detection in urine sediment by light microsco py NONE NRG Casts detection in urine sediment by light microscopy NONE NRG Mucus detection in urine sediment by light microscopy NEGATIVE NRG Complete urinalysis with reflex to culture YES NRG Bacterial urine culture - 04/29/19 12:24 Bacterial urine culture [id number] NRG COLONY COUNT >100,000/ML NRG FTX;REPORTABLE SUSCEPTIBILITY REPORTED 05/01/19 11: 15 NRG FREE TEXT ENTRY 2 ID REPORTED 05/01/19 9:30 NRG Dirithromycin susceptibility test by dis k diffusion - 04/29/19 12:24 Gentamicin susceptibility test by minimum inhibitory c oncentration <= NRG Trimethoprim/sulfamethoxazole susceptibi lity test by minimum inhibitoryconcentration <= NRG Levofloxacin susceptibility test by minimum inhibitory concentration <= NRG Ampicillin susceptibility test by minimum inhibitory c oncentration > NRG Cefazolin susceptibility test by minimum inhibitory co ncentration > NRG Ceftriaxone susceptibility test by minimum inhibitory concentration <= NRG Ciprofloxacin susceptibility test by minimum inhibitor y concentration 1 NRG Meropenem susceptibility test by minimum inhibitory co ncentration <= NRG Nitrofurantoin susceptibility test by mi nimum inhibitory concentration <= NRG Amoxicillin and clavulanate potassium susc LEONEL > NRG Bacterial blood culture - 04/29/19 13:37 Bacterial blood culture NG NRG Gram stain microscopy - 04/29/19 15:14 Gram stain microscopy Mixed Bacterial Claritza NRG Bacterial body fluid culture - 04/29/19 15:14 FREE TEXT EXTERNAL SUSCEPTIBILITY REPORTED 05/05 13 :25 NRG QUANTITY OF GROWTH . NRG FREE TEXT ENTRY 2 NO INDUCIBLE CLINDAMYCIN RESISTA NCE NRG FREE TEXT ENTRY 3 RESISTANT ORGANISM/CONTACT PRECA UTIONS NRG Bacterial body fluid culture SEE COMMEN NRG Dirithromycin susceptibility test by dis k diffusion - 04/29/19 15:14 Trimethoprim/sulfamethoxazole susceptibi lity test by minimum inhibitoryconcentration <= NRG Levofloxacin susceptibility test by minimum inhibitory concentration <= NRG Piperacillin/tazobactam susceptibility t est by minimum inhibitory concentration R NRG Dirithromycin susceptibility test by dis k diffusion - 04/29/19 15:14 Oxacillin susceptibility test by minimum inhibitory co ncentration > NRG Clindamycin susceptibility test by minimum inhibitory concentration <= NRG Erythromycin susceptibility test by minimum inhibitory concentration > NRG Trimethoprim/sulfamethoxazole susceptibi lity test by minimum inhibitoryconcentration <= NRG Vancomycin susceptibility test by minimum inhibitory c oncentration 1 NRG Levofloxacin susceptibility test by minimum inhibitory concentration <= NRG Rifampin susceptibility test by minimum inhibitory con centration <= NRG Cefazolin susceptibility test by minimum inhibitory co ncentration > NRG Linezolid susceptibility test by minimum inhibitory co ncentration <= NRG Penicillin G susceptibility test by minimum inhibitory concentration > NRG Moxifloxacin susceptibility test by minimum inhibitory concentration <= NRG Minocycline susc LEONEL <= NRG Gram stain microscopy - 04/29/19 15:42 Gram stain microscopy Few Gram positive cocci in c lusters NR Bacteria identification in wound by cult ure - 04/29/19 15:42 Bacteria identification in wound by culture [id number] NRG FREE TEXT EXTERNAL NO BETA STREP, STAPH AUREUS, OR NRG QUANTITY OF GROWTH SMALL AMOUNT NRG FREE TEXT ENTRY 2 PSEUDOMONAS ISOLATED NRG Complete blood count (CBC) with automate d white blood cell (WBC) differential - 04/30/19 04:49 Blood leukocytes automated count (number/volume) 8.6 10*3/uL 4.3-11.0 Blood erythrocytes automated count (number/volume) 2.32 10*6/uL 4.35-5.85 Venous blood hemoglobin measurement (mass/volume) 7.2 g/dL 11.5-16.0 Blood hematocrit (volume fraction) 23 % 35-52 Automated erythrocyte mean corpuscular volume 100 [foz_us] 80-99 Automated erythrocyte mean corpuscular h emoglobin (mass per erythrocyte) 31 pg 25-34 Automated erythrocyte mean corpuscular h emoglobin concentration measurement (mass/volume) 31 g/dL 32-36 Automated erythrocyte distribution width ratio 13. 7 % 10.0- 14.5 Automated blood platelet count (count/volume) 437 10*3/uL 130-400 Automated blood platelet mean volume measurement 8.0 [foz_us] 7.4-10.4 Automated blood neutrophils/100 leukocytes 64 % 42-75 Automated blood lymphocytes/100 leukocytes 26 % 12-44 Blood monocytes/100 leukocytes 7 % 0-12 Automated blood eosinophils/100 leukocytes 2 % 0-10 Automated blood basophils/100 leukocytes 0 % 0-10 Blood neutrophils automated count (number/volume) 5.5 10*3 1.8-7.8 Blood lymphocytes automated count (number/volume) 2.3 10*3 1.0-4.0 Blood monocytes automated count (number/volume) 0. 6 10*3 0.0-1.0 Automated eosinophil count 0.2 10*3/uL 0 .0-0.3 Automated blood basophil count (count/volume) 0.0 10*3/uL 0.0-0.1 Whole blood basic metabolic panel - 04/18 12/04 04:49 Serum or plasma sodium measurement (moles/volume) 142 mmol/L 135-145 Serum or plasma potassium measurement (moles/volume) 3.9 mmol/L 3.6-5.0 Serum or plasma chloride measurement (moles/volume) 104 mmol/L 98-107 Carbon dioxide 26 mmol/L 21-32 Serum or plasma anion gap determination (moles/volume) 12 mmol/L 5-14 Serum or plasma urea nitrogen measurement (mass/volume ) 11 mg/dL 7-18 Serum or plasma creatinine measurement (mass/volume) 0.64 mg/dL 0.60-1.30 Serum or plasma urea nitrogen/creatinine mass ratio 17 NRG Serum or plasma creatinine measurement w ith calculation of estimated glomerular filtration rate > NRG Serum or plasma glucose measurement (mass/volume) 107 mg/dL 70-105 Serum or plasma calcium measurement (mass/volume) 9.5 mg/dL 8.5-10.1 CBC - 08/19/19 15:40 WHITE BLOOD CELL COUNT 11.1 Thousand/uL 3.8-10.8 RED BLOOD CELL COUNT 3.56 Million/uL 3.8 0-5.10 HEMOGLOBIN 11.1 g/dL 11.7-15.5 HEMATOCRIT 32.4 % 35.0-45.0 MCV 91.0 fL 80.0-100.0 MCH 31.2 pg 27.0-33.0 MCHC 34.3 g/dL 32.0-36.0 RDW 12.8 % 11.0-15.0 PLATELET COUNT 413 Thousand/uL 140-400 MPV 8.9 fL 7.5-12.5 ABSOLUTE NEUTROPHILS 7148 cells/uL 1500- 7800 ABSOLUTE LYMPHOCYTES 3019 cells/uL 850-3 900 ABSOLUTE MONOCYTES 622 cells/uL 200-950 ABSOLUTE EOSINOPHILS 255 cells/uL 15-500 ABSOLUTE BASOPHILS 56 cells/uL 0-200 NEUTROPHILS 64.4 % NRG LYMPHOCYTES 27.2 % NRG MONOCYTES 5.6 % NRG EOSINOPHILS 2.3 % NRG BASOPHILS 0.5 % NRG Complete blood count (CBC) with automate d white blood cell (WBC) differential - 11/20/19 20:23 Blood leukocytes automated count (number/volume) 12.2 10*3/uL 4.3-11.0 Blood erythrocytes automated count (number/volume) 5.32 10*6/uL 4.35-5.85 Venous blood hemoglobin measurement (mass/volume) 16.4 g/dL 11.5-16.0 Blood hematocrit (volume fraction) 48 % 35-52 Automated erythrocyte mean corpuscular volume 91 [ foz_us] 80-99 Automated erythrocyte mean corpuscular h emoglobin (mass per erythrocyte) 31 pg 25-34 Automated erythrocyte mean corpuscular h emoglobin concentration measurement (mass/volume) 34 g/dL 32-36 Automated erythrocyte distribution width ratio 12. 1 % 10.0- 14.5 Automated blood platelet count (count/volume) 460 10*3/uL 130-400 Automated blood platelet mean volume measurement 9.5 [foz_us] 7.4-10.4 Automated blood neutrophils/100 leukocytes 65 % 42-75 Automated blood lymphocytes/100 leukocytes 27 % 12-44 Blood monocytes/100 leukocytes 6 % 0-12 Automated blood eosinophils/100 leukocytes 2 % 0-10 Automated blood basophils/100 leukocytes 0 % 0-10 Blood neutrophils automated count (number/volume) 7.9 10*3 1.8-7.8 Blood lymphocytes automated count (number/volume) 3.3 10*3 1.0-4.0 Blood monocytes automated count (number/volume) 0. 7 10*3 0.0-1.0 Automated eosinophil count 0.2 10*3/uL 0 .0-0.3 Automated blood basophil count (count/volume) 0.0 10*3/uL 0.0-0.1 Comprehensive metabolic panel - 11/20/19 20:23 Serum or plasma sodium measurement (moles/volume) 132 mmol/L 135-145 Serum or plasma potassium measurement (moles/volume) 4.0 mmol/L 3.6-5.0 Serum or plasma chloride measurement (moles/volume) 83 mmol/L 98-107 Carbon dioxide 31 mmol/L 21-32 Serum or plasma anion gap determination (moles/volume) 18 mmol/L 5-14 Serum or plasma urea nitrogen measurement (mass/volume ) 30 mg/dL 7-18 Serum or plasma creatinine measurement (mass/volume) 1.07 mg/dL 0.60-1.30 Serum or plasma urea nitrogen/creatinine mass ratio 28 NRG Serum or plasma creatinine measurement w ith calculation of estimated glomerular filtration rate 53 NRG Serum or plasma glucose measurement (mass/volume) 168 mg/dL 70-105 Serum or plasma calcium measurement (mass/volume) 11.0 mg/dL 8.5-10.1 Serum or plasma total bilirubin measurement (mass/volu me) 0.8 mg/dL 0.1-1.0 Serum or plasma alkaline phosphatase vaibhav surement (enzymatic activity/volume) 106 U/L 40-136 Serum or plasma aspartate aminotransfera se measurement (enzymatic activity/volume) 27 U/L 5-34 Serum or plasma alanine aminotransferase measurement (enzymatic activity/volume) 35 U/L 0-55 Serum or plasma protein measurement (mass/volume) 8.9 g/dL 6.4-8.2 Serum or plasma albumin measurement (mass/volume) 5.0 g/dL 3.2-4.5 Lipase - 11/20/19 20:23 Lipase 37 U/L 8-78 Serum or plasma C reactive protein measu rement (mass/volume) - 11/20/19 20:23 Serum or plasma C reactive protein measurement (mass/v olume) 0.29 mg/dL 0.00-0.50 Influenza virus A and B antigen detectio n - 11/20/19 20:34 FLU RESULT NEGATIVE FOR INFLUENZA A AND B ANTIGENS BY IA NRG Complete urinalysis with reflex to cultu re - 11/20/19 20:54 Urine color determination YELLOW NRG Urine clarity determination CLEAR NR G Urine pH measurement by test strip 5.0 5-9 Specific gravity of urine by test strip >= 1.016-1.022 Urine protein assay by test strip, semi-quantitative 2+ NEGATIVE Urine glucose detection by automated test strip NE GATIVE NEGATIVE Erythrocytes detection in urine sediment by light micr oscopy 3+ NEGATIVE Urine ketones detection by automated test strip TR SOLOMON NEGATIVE Urine nitrite detection by test strip NEGATIVE NEGATIVE Urine total bilirubin detection by test strip 1+ NEGATIVE Urine urobilinogen measurement by automated test strip (mass/volume) 0.2 mg/dL < = 1.0 Urine leukocyte esterase detection by dipstick 2+ NEGATIVE Automated urine sediment erythrocyte cou nt by microscopy (number/high power field) [HPF] NRG Automated urine sediment leukocyte count by microscopy (number/high power field) TNTC NRG Bacteria detection in urine sediment by light microsco py LARGE NRG Squamous epithelial cells detection in u rine sediment by light microscopy 2-5 NRG Crystals detection in urine sediment by light microsco py NONE NRG Casts detection in urine sediment by light microscopy NONE NRG Mucus detection in urine sediment by light microscopy NEGATIVE NRG Complete urinalysis with reflex to culture YES NRG Bacterial urine culture - 11/20/19 20:54 Bacterial urine culture [id number] NRG COLONY COUNT >100,000/ML NRG FTX;REPORTABLE SUSCEPTIBILITY REPORTED 11-24-19 114 9 NRG FREE TEXT ENTRY 2 PRELIM RAPID ID TEST AT P 11/20 16:45 NRG FREE TEXT ENTRY 3 RML REPORTED E COLI ID 36 A.M. NRG Dirithromycin susceptibility test by dis k diffusion - 11/20/19 20:54 Gentamicin susceptibility test by minimum inhibitory c oncentration <= NRG Trimethoprim/sulfamethoxazole susceptibi lity test by minimum inhibitoryconcentration <= NRG Levofloxacin susceptibility test by minimum inhibitory concentration <= NRG Ampicillin susceptibility test by minimum inhibitory c oncentration > NRG Cefazolin susceptibility test by minimum inhibitory co ncentration > NRG Ceftriaxone susceptibility test by minimum inhibitory concentration <= NRG Ciprofloxacin susceptibility test by minimum inhibitor y concentration 1 NRG Meropenem susceptibility test by minimum inhibitory co ncentration <= NRG Nitrofurantoin susceptibility test by mi nimum inhibitory concentration <= NRG Amoxicillin and clavulanate potassium susc LEONEL > NRG Dirithromycin susceptibility test by dis k diffusion - 11/20/19 20:54 Gentamicin susceptibility test by minimum inhibitory c oncentration <= NRG Trimethoprim/sulfamethoxazole susceptibi lity test by minimum inhibitoryconcentration <= NRG Levofloxacin susceptibility test by minimum inhibitory concentration <= NRG Ampicillin susceptibility test by minimum inhibitory c oncentration <= NRG Cefazolin susceptibility test by minimum inhibitory co ncentration 8 NRG Ceftriaxone susceptibility test by minimum inhibitory concentration <= NRG Ciprofloxacin susceptibility test by minimum inhibitor y concentration 1 NRG Meropenem susceptibility test by minimum inhibitory co ncentration <= NRG Nitrofurantoin susceptibility test by mi nimum inhibitory concentration <= NRG Amoxicillin and clavulanate potassium susc LEONEL = NRG Blood CBC with ordered manual differenti al panel - 11/21/19 06:05 Blood leukocytes automated count (number/volume) 11.0 10*3/uL 4.3-11.0 Blood erythrocytes automated count (number/volume) 4.57 10*6/uL 4.35-5.85 Venous blood hemoglobin measurement (mass/volume) 14.3 g/dL 11.5-16.0 Blood hematocrit (volume fraction) 42 % 35-52 Automated erythrocyte mean corpuscular volume 93 [ foz_us] 80-99 Automated erythrocyte mean corpuscular h emoglobin (mass per erythrocyte) 31 pg 25-34 Automated erythrocyte mean corpuscular h emoglobin concentration measurement (mass/volume) 34 g/dL 32-36 Automated erythrocyte distribution width ratio 12. 2 % 10.0- 14.5 Automated blood platelet count (count/volume) 361 10*3/uL 130-400 Automated blood platelet mean volume measurement 9.2 [foz_us] 7.4-10.4 Automated blood neutrophils/100 leukocytes 65 % 42-75 Automated blood lymphocytes/100 leukocytes 28 % 12-44 Blood monocytes/100 leukocytes 6 % NRG Automated blood eosinophils/100 leukocytes 1 % 0-10 Automated blood basophils/100 leukocytes 0 % 0-10 Blood neutrophils automated count (number/volume) 7.1 10*3 1.8-7.8 Blood lymphocytes automated count (number/volume) 3.0 10*3 1.0-4.0 Blood monocytes automated count (number/volume) 0. 7 10*3 0.0-1.0 Automated eosinophil count 0.1 10*3/uL 0 .0-0.3 Automated blood basophil count (count/volume) 0.0 10*3/uL 0.0-0.1 Manual blood segmented neutrophils/100 leukocytes 69 % NRG Manual blood lymphocytes/100 leukocytes 24 % NR Manual eosinophils/100 leukocytes in nose 1 % NR Blood erythrocyte morphology finding identification [facility] Comprehensive metabolic panel - 11/21/19 06:05 Serum or plasma sodium measurement (moles/volume) 134 mmol/L 135-145 Serum or plasma potassium measurement (moles/volume) 3.5 mmol/L 3.6-5.0 Serum or plasma chloride measurement (moles/volume) 91 mmol/L 98-107 Carbon dioxide 30 mmol/L 21-32 Serum or plasma anion gap determination (moles/volume) 13 mmol/L 5-14 Serum or plasma urea nitrogen measurement (mass/volume ) 22 mg/dL 7-18 Serum or plasma creatinine measurement (mass/volume) 0.80 mg/dL 0.60-1.30 Serum or plasma urea nitrogen/creatinine mass ratio 28 NRG Serum or plasma creatinine measurement w ith calculation of estimated glomerular filtration rate > NRG Serum or plasma glucose measurement (mass/volume) 129 mg/dL 70-105 Serum or plasma calcium measurement (mass/volume) 9.7 mg/dL 8.5-10.1 Serum or plasma total bilirubin measurement (mass/volu me) 0.4 mg/dL 0.1-1.0 Serum or plasma alkaline phosphatase vaibhav surement (enzymatic activity/volume) 81 U/L 40-136 Serum or plasma aspartate aminotransfera se measurement (enzymatic activity/volume) 23 U/L 5-34 Serum or plasma alanine aminotransferase measurement (enzymatic activity/volume) 28 U/L 0-55 Serum or plasma protein measurement (mass/volume) 7.4 g/dL 6.4-8.2 Serum or plasma albumin measurement (mass/volume) 4.0 g/dL 3.2-4.5 CALCIUM CORRECTED 9.7 mg/dL 8.5-10.1 Automated blood complete blood count (he mogram) panel - 11/22/19 04:25 Blood leukocytes automated count (number/volume) 6.0 10*3/uL 4.3-11.0 Blood erythrocytes automated count (number/volume) 3.86 10*6/uL 4.35-5.85 Venous blood hemoglobin measurement (mass/volume) 11.9 g/dL 11.5-16.0 Blood hematocrit (volume fraction) 36 % 35-52 Automated erythrocyte mean corpuscular volume 94 [ foz_us] 80-99 Automated erythrocyte mean corpuscular h emoglobin (mass per erythrocyte) 31 pg 25-34 Automated erythrocyte mean corpuscular h emoglobin concentration measurement (mass/volume) 33 g/dL 32-36 Automated erythrocyte distribution width ratio 12. 0 % 10.0- 14.5 Automated blood platelet count (count/volume) 276 10*3/uL 130-400 Automated blood platelet mean volume measurement 8.8 [foz_us] 7.4-10.4 Whole blood basic metabolic panel - 03/07 04:25 Serum or plasma sodium measurement (moles/volume) 139 mmol/L 135-145 Serum or plasma potassium measurement (moles/volume) 3.2 mmol/L 3.6-5.0 Serum or plasma chloride measurement (moles/volume) 99 mmol/L 98-107 Carbon dioxide 30 mmol/L 21-32 Serum or plasma anion gap determination (moles/volume) 10 mmol/L 5-14 Serum or plasma urea nitrogen measurement (mass/volume ) 17 mg/dL 7-18 Serum or plasma creatinine measurement (mass/volume) 0.74 mg/dL 0.60-1.30 Serum or plasma urea nitrogen/creatinine mass ratio 23 NRG Serum or plasma creatinine measurement w ith calculation of estimated glomerular filtration rate > NRG Serum or plasma glucose measurement (mass/volume) 122 mg/dL 70-105 Serum or plasma calcium measurement (mass/volume) 8.9 mg/dL 8.5-10.1 Complete blood count (CBC) with automate d white blood cell (WBC) differential - 11/24/19 05:21 Blood leukocytes automated count (number/volume) 7.5 10*3/uL 4.3-11.0 Blood erythrocytes automated count (number/volume) 3.27 10*6/uL 4.35-5.85 Venous blood hemoglobin measurement (mass/volume) 10.3 g/dL 11.5-16.0 Blood hematocrit (volume fraction) 32 % 35-52 Automated erythrocyte mean corpuscular volume 96 [ foz_us] 80-99 Automated erythrocyte mean corpuscular h emoglobin (mass per erythrocyte) 31 pg 25-34 Automated erythrocyte mean corpuscular h emoglobin concentration measurement (mass/volume) 33 g/dL 32-36 Automated erythrocyte distribution width ratio 12. 0 % 10.0- 14.5 Automated blood platelet count (count/volume) 201 10*3/uL 130-400 Automated blood platelet mean volume measurement 8.4 [foz_us] 7.4-10.4 Automated blood neutrophils/100 leukocytes 57 % 42-75 Automated blood lymphocytes/100 leukocytes 33 % 12-44 Blood monocytes/100 leukocytes 6 % 0-12 Automated blood eosinophils/100 leukocytes 3 % 0-10 Automated blood basophils/100 leukocytes 0 % 0-10 Blood neutrophils automated count (number/volume) 4.3 10*3 1.8-7.8 Blood lymphocytes automated count (number/volume) 2.5 10*3 1.0-4.0 Blood monocytes automated count (number/volume) 0. 5 10*3 0.0-1.0 Automated eosinophil count 0.2 10*3/uL 0 .0-0.3 Automated blood basophil count (count/volume) 0.0 10*3/uL 0.0-0.1 Comprehensive metabolic panel - 11/24/19 05:21 Serum or plasma sodium measurement (moles/volume) 137 mmol/L 135-145 Serum or plasma potassium measurement (moles/volume) 3.7 mmol/L 3.6-5.0 Serum or plasma chloride measurement (moles/volume) 108 mmol/L 98-107 Carbon dioxide 23 mmol/L 21-32 Serum or plasma anion gap determination (moles/volume) 6 mmol/L 5-14 Serum or plasma urea nitrogen measurement (mass/volume ) 7 mg/dL 7-18 Serum or plasma creatinine measurement (mass/volume) 0.57 mg/dL 0.60-1.30 Serum or plasma urea nitrogen/creatinine mass ratio 12 NRG Serum or plasma creatinine measurement w ith calculation of estimated glomerular filtration rate > NRG Serum or plasma glucose measurement (mass/volume) 83 mg/dL 70-105 Serum or plasma calcium measurement (mass/volume) 7.9 mg/dL 8.5-10.1 Serum or plasma total bilirubin measurement (mass/volu me) 0.5 mg/dL 0.1-1.0 Serum or plasma alkaline phosphatase vaibhav surement (enzymatic activity/volume) 51 U/L 40-136 Serum or plasma aspartate aminotransfera se measurement (enzymatic activity/volume) 55 U/L 5-34 Serum or plasma alanine aminotransferase measurement (enzymatic activity/volume) 88 U/L 0-55 Serum or plasma protein measurement (mass/volume) 4.9 g/dL 6.4-8.2 Serum or plasma albumin measurement (mass/volume) 2.8 g/dL 3.2-4.5 CALCIUM CORRECTED 8.9 mg/dL 8.5-10.1 Radiology Report from [id number] on 11/16 06:44:00 Reason For ExamTo check for leaksREPORTI NDICATION: Status post fundoplication.EXAMINATION: Note is made of extraluminal gas, presumed on a postsurgical basis.FINDINGS: Swallowing was normal. There is expected postoperative narrowing ofthe distal thoracic esophagus through the EG junction without evidence of leakor mechanical obstruction. Gastric filling and emptying was normal.IMPRESSION: Presumed postoperative extraluminal gas visualized in the abdomen.Expected postoperative distortion of the distal esophagus without obstruction,leak or suspicious finding.Tech Comments: Fluoroscopy time (in minut es): .45 minDictated on workstation:[id number] Line FINAL DICTATED BY: VENTURA REYNOSO MDDICTATED DT/TM: 11/15/2018 2:42 PMSIGNED BY: VENTURA REYNOSO MDSIGNED (ELECTRONIC SIGNATURE): 11/15/2018 4:56 PMTECHNOLOGIST: MADELEINE SORTO ARRT Encounters ACCT No. Visit Date/Time Discharge Status Pt. Type Provider Facility Loc./Unit Complaint [id number] 11/14/2018 09:25:00 16:28:00 DIS Inpatient Justice Kyle [facility] [place] VCF F7SE recurrent paraesopha geal hernia // robot assist recurrent pa [id number] 11/17/2018 05:20:34 Document Registration [id number] 11/16/2018 05:20:24 Document Registration [id number] 11/15/2018 05:19:53 Document Registration [id number] 11/19/2019 11:17:00 11:56:00 DIS Outpatient CARITO BACON APRN [facility] ER FEEDING TUBE ISSUES [id number] 11/16/2019 09:11:00 11:52:00 DIS Emergency MARIEE DOJOSE L [facility] ER DIGESTIVE TUBE FELL OUT [id number] 04/29/2019 18:50:00 16:40:00 DIS Inpatient MALA BLAS MD [facility] 4TH UTI,CHRONIC PAIN [id number] 01/08/2019 16:15:00 16:55:00 DIS Inpatient TAI SANCHEZ MD [facility] 4TH DYSPHAGIA [id number] 01/07/2019 12:52:00 13:16:00 DIS Outpatient TAI SANCHEZ MD [facility] PREOP EGD [id number] 01/03/2019 10:15:00 019 23:59:59 CLS Preadmit NICO PEREZ MAGNETIC GRINDER OPERATOR [facility] RAD ABN WEIGHT LOSS,HTN,CHR ONIC PAIN [id number] 11/30/2018 11:25:00 019 10:25:00 DIS Inpatient VAN DO BISHOP Alie ia [facility] IRF DEBILITY, PNUEMONIA [id number] 12/06/2018 08:46:00 019 23:59:59 CLS Outpatient SAM COLLINS DO [facility] ENDO PERSISTENT WORSENING AT ELECTASIS [id number] 11/23/2018 19:05:00 11:20:00 DIS Inpatient DI RILEY, CICI Bowser [facility] 4TH PNEUMOTHORAX,LEFT [id number] 09/03/2018 20:06:00 018 01:59:00 DIS Emergency ANA RILEY, BRAYDON Browne [facility] ER HAD EPIDURAL DO NE TODAY/STOMACH PAIN [id number] 08/06/2018 09:02:00 018 23:59:59 CLS Outpatient DI RILEY, CICI Bowser [facility] ENDO EPIGASTIC PAIN/GERD [id number] 07/31/2018 06:38:00 018 15:21:00 DIS Outpatient DI RILEY, CICI Bowser [facility] PREOP EGD [id number] 07/17/2018 07:36:00 018 10:55:00 DIS Emergency CHEVY BANDA MD [facility] ER ABD PAIN [id number] 06/16/2017 07:40:00 017 23:59:59 CLS Outpatient NICO PEREZ MAGNETIC GRINDER OPERATOR [facility] RAD LUMBAR RADICULOPATHY [id number] 12/28/2016 08:29:00 017 23:59:59 CLS Outpatient NICO PEREZ MAGNETIC GRINDER OPERATOR [facility] RAD RT BREAST MASS [id number] 12/20/2016 07:35:00 017 23:59:59 CLS Outpatient NICO PEREZ MAGNETIC GRINDER OPERATOR [facility] RAD RT BREAST PAIN,TUGGING X1 MONTH [id number] 08/30/2016 07:23:00 23:59:59 CLS Outpatient NICO PEREZ MAGNETIC GRINDER OPERATOR [facility] LAB LYFT DRIVER MEDICATIONS USE,ASTHMA/COPD [id number] 06/15/2016 07:22:00 016 13:00:00 DIS Outpatient CICI SEVILLA MD [facility] VENTRAL HERNIA [id number] 06/13/2016 05:51:00 14:36:00 DIS Outpatient CICI SEVILLA MD [facility] PREOP VENTRAL HERNIA [id number] 06/07/2016 14:29:00 23:59:59 CLS Outpatient MERARY SERRA MAGNETIC GRINDER OPERATOR [facility] RAD UMBILICAL HERNIA,SEVER E PAIN W/ UMBILICAL BULGE [id number] 01/13/2016 08:57:00 016 12:30:00 DIS Inpatient CICI SEVILLA MD [facility] 4TH HIATAL HERNIA [id number] 01/07/2016 08:48:00 016 09:23:00 DIS Outpatient CICI SEVILLA MD [facility] PREOP HIATAL HERNIA [id number] 12/21/2015 11:52:00 15:20:00 DIS Outpatient CICI SEVILLA MD [facility] UPPER GASTRIC PAIN [id number] 12/08/2015 09:39:00 016 13:02:00 DIS Emergency JACQUELIN RIVERA DO [facility] ER CP, CHEST TIGHTNESS [id number] 11/20/2019 23:00:[address] Inpatient BISHOP VAN DO [facility] 4TH SEPSIS, UTI, CELLUTITIS [id number] 12/18/2015 07:34:00 Document Registration [id number] 12/08/2015 13:09:00 Document Registration [id number] 12/08/2015 13:09:00 Document Registration [id number] 11/28/2014 08:18:00 Document Registration [id number] 11/15/2019 11:40:00 11/15/2019 23:59: 59 [facility] Outpatient [facility] [id number] 08/19/2019 16:00:00 Document Registration
[2019-11-25] MEDS: PROMETHAZINE INJ 25 MG/ML (PHENERGAN) AMP IVP PRN ×2 (11:55→15:36)
[2019-11-25 12:00] VITALS: BP 152/94
--- NOTE | 2019-11-25 15:01 | NUR ---
CM/SS: Visited with pt as to plan for discharge Plan: Pt will discharge to home with [facility] Summary: Pt has asked that this worker speak with her daughter as to discharge plan. Pt is aware that physician has recommended hospice. Call to daughter Elizabeth Love - [phone] - she is in the hospital and is ok to visit with this worker. Daughter reports that they have previously had [facility] and she would like to have them again. They are given the choice list and report that is who they prefer. Daughter indicated there are no identified equipment needs at this time. Information faxed to [facility] for referral. Returned call from [facility] they indicate that they have talked with daughter and that pt will need a face to face before coming back on Hospice. They will plan to do it once pt is discharged from the hospital. Daughter can take pt home via private car, after her mammogram appt after 3:00pm today.
[2019-11-25] MEDS ORDERED: PROM25TA14 PO (15:06)
--- NOTE | 2019-11-25 15:45 | NUR ---
Pastoral care visit. pt asleep, will monitor.
[2019-11-25 16:00] VITALS: BP 127/75
[2019-11-25 16:25] VITALS: BP 127/75
--- NOTE | 2019-11-25 16:25 | NUR ---
HERBERT XAVIER demonstrates understanding of discharge instructions and accurately returns instructions upon questioning. Copy of Post-Discharge Instructions given to PT AND DAUGHTER. HERBERT XAVIER is able to manage continuing needs after discharge. Patients belongings returned to PT. Patient discharged from [facility]- on 11/25/19 at 1625. HERBERT XAVIER left floor via W/C, accompanied by STAFF AND DAUGHTER PER AUTO.
== END 2019-11-25 16:25 | disposition hospice, home (50) | DRG 393 ==
LOC: EDUNIT# 19:12 → ER 19:14 → 4TH 23:00
PROVIDERS: ADMIT Family Medicine; ATTEND Internal Medicine
DX: K94.22 Gastrostomy infection (principal); A41.9 Sepsis, unspecified organism; L03.311 Cellulitis of abdominal wall; N39.0 Urinary tract infection, site not specified; K56.7 Ileus, unspecified; E46 Unspecified protein-calorie malnutrition; R64 Cachexia; R13.10 Dysphagia, unspecified; I10 Essential (primary) hypertension; K21.9 Gastro-esophageal reflux disease without esophagitis; J45.909 Unspecified asthma, uncomplicated; M54.9 Dorsalgia, unspecified; D64.9 Anemia, unspecified; D47.3 Essential (hemorrhagic) thrombocythemia; F32.9 Major depressive disorder, single episode, unspecified; Z91.19 Patient's noncompliance with other medical treatment and regimen; E87.6 Hypokalemia; Z99.81 Dependence on supplemental oxygen
CPT/HCPCS: 36415; 71046; 74177; 80048; 80053; 81000; 83690; 85007; 85025; 85027; 86141; 87077; 87088; 87186; 87804

== ENCOUNTER 2020-04-19 07:47 | Emergency (ER) | payer OTHER ==
[~2020-04-19] VITALS: Ht 149.8 cm; Wt 39.0 kg
[~2020-04-19 07:47] MED LIST changes: +FENT1PAT8 TD; +LORA-404 SL; +MELA3TAB39 PO; -MELA3TAB65 PO; +PROC10TA10 PO; +PROM25TA14 PO
--- OUTSIDE RECORDS SUMMARY | 2020-04-19 07:56 | XMS REPORT | Encounter Summary ---
Author Author [facility] Organization [facility] Address Unknown Phone Unavailable Care Team Providers Care Sight Effects Specialist Name Role Phone Jos Snow MD PCP Encounter Details Care Team Description Date Type Department Brodie Luciano 10/28/2019 Documentation [id number] [place] [address] Social History Date Tobacco Use Types Packs/Day [...] * Brodie Luciano - 10/28/2019 11:15 AM BAND INSTRUMENT REPAIRER Second attempt made to reach patient to reschedule lung cancer screening. Jen santamaria was scheduled for 10/17/2019 but left appointment after check-in. Voicemail le ft. Routing to RN to send letter to patient. INSTRUMENT REPAIRER documented in this encounter Plan of Treatment Not on filedocumented as of this encounter Visit Diagnoses Not on filedocumented in this encounter Additional Health Concerns Resolved Time Infection Noted Time NURSING UNIT CLERK 02/09/2019 3:14 PM CDT MRSA 02/09/2019 3:15 PM CDT documented as of this encounter
--- OUTSIDE RECORDS SUMMARY | 2020-04-19 07:56 | XMS REPORT | Encounter Summary ---
Author Author [facility] Organization [facility] Address Unknown Phone Unavailable Care Team Providers Care Coil Winder Name Role Phone Jos Snow MD PCP Encounter Details Care Team Description Date Type Department 11/21/2019 [facility] [address] [place] [id number] Social History Date Tobacco Use Types Packs/Day [...] Procedure Name Priority Date/Time Associated Diag nosis GENERAL RAD CHEST Routine 11/21/2019 EXTERNAL IMAGING 12:[address] ATTENDANT documented in this encounter Results * GENERAL RAD CHEST EXTERNAL IMAGING (11/21/2019 12:[address] ATTENDANT) Specimen Narrative Performed At This order has been auto finalized and does not contain a result. 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
--- OUTSIDE RECORDS SUMMARY | 2020-04-19 07:56 | XMS REPORT | Clinical Summary ---
Author Author [facility] Organization [facility] Address Unknown Phone Unavailable Care Team Providers Care Window Caser Name Role Phone Jos Snow MD PCP Source Comments Some departments are not documenting in the electronic medical record. If you d o not see the information that you expected, contact Release of Information in [facility] [employer] Information Management department at [phone] for further assistan ce in locating additional records.[facility] Allergies Comments Active Allergy Reactions Severity Noted [...] SIRS (systemic inflammatory response syndrome) 01/10/2019 01/17/2019 Social History Date Tobacco Use Types Packs/Day [...] Comments Vital Sign 136/81 09/19/2019 1:00 PM DESKTOP SUPPORT ASSOCIATE Blood Pressure 111 09/19/2019 1:00 PM DESKTOP SUPPORT ASSOCIATE Pulse 36.8 C (98.3 F) 09/19/2019 12:26 PM DESKTOP SUPPORT ASSOCIATE Temperature - - Respiratory Rate 99% 09/19/2019 1:00 PM DESKTOP SUPPORT ASSOCIATE Oxygen Saturation - - Inhaled Oxygen Concentration 45.3 kg (99 lb 13.9 oz) 03/01/2019 5:00 AM CDT Weight 149.9 cm (4' 11.02") 02/11/2019 6:00 AM CDT Height 20.16 02/11/2019 6:00 AM CDT Body Mass Index Plan of Treatment Health Maintenance Due Date Last Done Comments HIV SCREENING 1977 DTAP/TDAP VACCINES (1 - 1980 Tdap) PHYSICAL (COMPREHENSIVE) 1980 EXAM CERVICAL CANCER SCREENING 1983 BREAST CANCER SCREENING 2002 COLORECTAL CANCER 2012 SCREENING SHINGLES RECOMBINANT 2012 VACCINE (1 of 2) INFLUENZA VACCINE 06/18/2020 HEPATITIS C SCREENING Completed 01/27/2019 Implants Device Identifier Shelf Expiration Date Model / Serial / L ot Implanted Type Area Manufactur er [id number] 09/06/2023 [id number] / N/A / [id number] Kit Catheter 16cm 13.5fr Valentín Right: Neck COV IDIEN Elite Straight Extension - Sn/A SURGICAL Implanted: Qty: 1 on 02/06/2019 by DEVICES Jagdish Gillis MD at [facility] Results Not on filefrom Last 3 Months Additional Health Concerns Resolved Time Infection Noted Time PROBATE JUDGE 02/09/2019 3:14 PM CDT MRSA 02/09/2019 3:15 PM CDT Advance Directives Patient Entertainment Centre Manager Explanation Type Date Recorded Advance 01/17/2019 1:24 [...]
--- OUTSIDE RECORDS SUMMARY | 2020-04-19 07:56 | XMS REPORT | Encounter Summary ---
Author Author [facility] Organization [facility] Address Unknown Phone Unavailable Care Team Providers Care Laundry Route Driver Name Role Phone Jos Snow MD PCP Encounter Details Care Team Description Date Type Department 11/20/2019 [facility] [address] [place] [id number] Social History Date Tobacco Use Types Packs/Day [...] Procedure Name Priority Date/Time Associated Diag nosis CT ABD/PEL EXTERNAL Routine 11/20/2019 IMAGING 12:00 AM TICKET AGENT documented in this encounter Results * CT ABD/PEL EXTERNAL IMAGING (11/20/2019 12:00 AM TICKET AGENT) Specimen Narrative Performed At This order has been auto finalized and does not contain a result. 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
--- OUTSIDE RECORDS SUMMARY | 2020-04-19 07:57 | XMS REPORT | Continuity of Care Document ---
Author Organization Unknown Address Unknown Phone Unavailable Allergies Active Description Code Type Severity Reaction Onset Reported/Identified Relationship to Patient Clinical Status Yes seasonal seasonal Un known N/A 11/28/2014 Yes No Known Drug Allergies [id number] Drug Allergy Unknown N/A 06/13/2016 Yes codeine [id number] Drug Allergy Unknown N/A 09/03/2018 Yes codeine NKMA N/A GI issues 09/24/2018 Yes codeine NKMA N/A GI issues 09/24/2018 Medications Medication Packaging Start Date St op Date Route Dosage Sig gabapentin(gabapentin 400 mg oral capsule) 1 caps 09/24/2018 Oral 400 mg 400 mg = 1 caps, Oral, TID, 0 Refill(s) oxycodone-acetaminophen(oxyc odone-acetaminophen 5 mg-300 mg oral tablet) 09/24/2018 Oral 1-2 tabs, Oral, q4hr, PRN: as needed for pain, 0 Refill(s) celecoxib(CeleBREX) 09/24/2018 Oral Oral , BID, 0 Refill(s) omeprazole(omeprazole 20 mg oral delayed release capsule) 1 caps 09/24/2018 Oral 2 0 mg 20 mg = 1 caps, Oral, Daily, 0 Refill(s) budesonide-formoterol(Symbicort) 09/24/2018 Inhalation Inhalation, BID, 0 Refill(s) sucralfate(sucralfate 1 g oral tablet) 1 tabs 09/24/2018 Oral 1 g 1 g = 1 tabs, Oral, QIDACHS, 0 Refill(s) HYDROcodone-acetaminophen(HY DROcodone-acetaminophen 5 mg-325 mg oral tablet) [...] CICI Bowser Ot R13.10 DYSPHAGIA, UNSPECIFIED 06/13/2016 DI RILEY, CICI Bowser Ot K43.9 VENTRAL HERNIA WITHOUT OBSTRUCTION OR GA 06/13/2016 DI RILEY, CICI Bowser Ot Z01.818 ENCOUNTER FOR OTHER PREPROCEDURAL EXAMIN 06/14/2016 DI RILEY, CICI Bowser Ot K43.9 VENTRAL HERNIA WITHOUT OBSTRUCTION OR GA 06/14/2016 DI RILEY, CICI Bowser Ot Z01.818 ENCOUNTER FOR OTHER PREPROCEDURAL EXAMIN 06/15/2016 MERARY SERRA FINE SANDER Ot K42.9 UMBILICAL HERNIA WITHOUT OBSTRUCTION OR 06/17/2016 DI RILEY, CICI Bowser Ot K43.9 VENTRAL HERNIA WITHOUT OBSTRUCTION OR GA 06/19/2016 DI RILEY, CICI Bowser Ot K43.9 VENTRAL HERNIA WITHOUT OBSTRUCTION OR GA 06/19/2016 DI RILEY, CICI Bowser Ot Z01.818 ENCOUNTER FOR OTHER PREPROCEDURAL EXAMIN 06/20/2016 DI RILEY, ICCI Bowser Ot K43.9 VENTRAL HERNIA WITHOUT OBSTRUCTION OR GA 06/21/2016 MERARY SERRA FINE SANDER Ot K42.9 UMBILICAL HERNIA WITHOUT OBSTRUCTION OR 06/23/2016 CICI SEVILLA MD Ot K43.9 VENTRAL HERNIA WITHOUT OBSTRUCTION OR GA 08/24/2016 MERARY SERRA FINE SANDER Ot K42.9 UMBILICAL HERNIA WITHOUT OBSTRUCTION OR 08/26/2016 MERARY SERRA FINE SANDER Ot K42.9 UMBILICAL HERNIA WITHOUT OBSTRUCTION OR 08/31/2016 NICO PEREZ FINE SANDER Ot J44 .9 CHRONIC OBSTRUCTIVE PULMONARY DISEASE, U 08/31/2016 NICO PEREZ FINE SANDER Ot J45.909 UNSPECIFIED ASTHMA, UNCOMPLICATED 08/31/2016 NICO PEREZ FINE SANDER Ot Z79.899 OTHER FILLER SHAKER (CURRENT) DRUG THERAPY 09/14/2016 NICO PEREZ FINE SANDER Ot J44 .9 CHRONIC OBSTRUCTIVE PULMONARY DISEASE, U 09/14/2016 NICO PEREZ FINE SANDER Ot J45.909 UNSPECIFIED ASTHMA, UNCOMPLICATED 09/14/2016 NICO PEREZ FINE SANDER Ot Z79.899 OTHER FILLER SHAKER (CURRENT) DRUG THERAPY 11/14/2016 MERARY SERRA FINE SANDER Ot K42.9 UMBILICAL HERNIA WITHOUT OBSTRUCTION OR 11/14/2016 PEREZ, NICO L FINE SANDER Ot J44 .9 CHRONIC OBSTRUCTIVE PULMONARY DISEASE, U 11/14/2016 CHRIS NICO L FINE SANDER Ot J45.909 UNSPECIFIED ASTHMA, UNCOMPLICATED 11/14/2016 PEREZTOMERI L FINE SANDER Ot Z79.899 OTHER FILLER SHAKER (CURRENT) DRUG THERAPY 11/14/2016 MERARY SERRA FINE SANDER Ot K42.9 UMBILICAL HERNIA WITHOUT OBSTRUCTION OR 12/21/2016 PEREZ NICO L FINE SANDER Ot N63 UNSPECIFIED LUMP IN BREAST 12/21/2016 PEREZ, NICO L FINE SANDER Ot N64 .4 MASTODYNIA 12/21/2016 PEREZ, NICO L FINE SANDER Ot N63 UNSPECIFIED LUMP IN BREAST 12/21/2016 CHRIS NICO L FINE SANDER Ot N64 .4 MASTODYNIA 12/30/2016 CHRIS NICO L FINE SANDER Ot D24 .1 BENIGN NEOPLASM OF RIGHT BREAST 01/03/2017 MERARY SERRA FINE SANDER Ot K42.9 UMBILICAL HERNIA WITHOUT OBSTRUCTION OR 01/03/2017 CHRIS NICO L FINE SANDER Ot J44 .9 CHRONIC OBSTRUCTIVE PULMONARY DISEASE, U 01/03/2017 CHRIS NICO L FINE SANDER Ot J45.909 UNSPECIFIED ASTHMA, UNCOMPLICATED 01/03/2017 CHRIS NICO L FINE SANDER Ot Z79.899 OTHER CARE HOME (CURRENT) DRUG THERAPY 01/03/2017 CHRIS NICO L FINE SANDER Ot N63 UNSPECIFIED LUMP IN BREAST 01/03/2017 CHRIS NICO L FINE SANDER Ot N64 .4 MASTODYNIA 01/03/2017 CHRIS NICO L FINE SANDER Ot D24 .1 BENIGN NEOPLASM OF RIGHT BREAST 01/03/2017 MERARY SERRA FINE SANDER Ot K42.9 UMBILICAL HERNIA WITHOUT OBSTRUCTION OR 01/04/2017 PEREZ NICO L FINE SANDER Ot D24 .1 BENIGN NEOPLASM OF RIGHT BREAST 01/05/2017 PEREZ, NICO L FINE SANDER Ot D24 .1 BENIGN NEOPLASM OF RIGHT BREAST 01/06/2017 TOMER PEREZI L FINE SANDER Ot N63 UNSPECIFIED LUMP IN BREAST 01/06/2017 TOMER PEREZI L FINE SANDER Ot N64 .4 MASTODYNIA 01/13/2017 NICO PEREZ FINE SANDER Ot D24 .1 BENIGN NEOPLASM OF RIGHT BREAST 02/02/2017 NICO PEREZ FINE SANDER Ot D24 .1 BENIGN NEOPLASM OF RIGHT BREAST 03/22/2017 NICO PEREZ FINE SANDER Ot D24 .1 BENIGN NEOPLASM OF RIGHT BREAST 06/28/2017 NICO PEREZ FINE SANDER Ot M54.16 RADICULOPATHY, LUMBAR REGION 07/17/2018 CHEVY [...] OTHER DISEASES OF TH 07/17/2018 CHEVY BANDA MD Ot Z90.49 ACQUIRED ABSENCE OF OTHER SPECIFIED PART 07/17/2018 CHEVY BANDA MD Ot Z90.710 ACQUIRED ABSENCE OF BOTH CERVIX AND UTER 07/17/2018 CHEVY BANDA MD Ot Z98.890 OTHER SPECIFIED POSTPROCEDURAL STATES 07/19/2018 CHEVY BANDA MD, Ot J45.909 UNSPECIFIED ASTHMA, UNCOMPLICATED 07/19/2018 CHEVY BANDA MD Ot K21.9 GASTRO-ESOPHAGEAL REFLUX DISEASE WITHOUT 07/19/2018 CHEVY BANDA MD Ot K46.9 UNSPECIFIED ABDOMINAL HERNIA WITHOUT OBS 07/19/2018 CHEVY BANDA MD Ot K57.30 DVRTCLOS OF LG INT W/O PERFORATION OR AB 07/19/2018 CHEVY BANDA MD Ot N39.0 URINARY TRACT INFECTION, SITE NOT SPECIF 07/19/2018 CHEVY BANDA MD Ot R10.13 EPIGASTRIC PAIN 07/19/2018 CHEVY BANDA MD Ot Z87.19 PERSONAL HISTORY OF OTHER DISEASES OF TH 07/19/2018 CHEVY BANDA MD Ot Z90.49 ACQUIRED ABSENCE OF OTHER SPECIFIED PART 07/19/2018 CHEVY BANDA MD Ot Z90.710 ACQUIRED ABSENCE OF BOTH CERVIX AND UTER 07/19/2018 CHEVY BANDA MD Ot Z98.890 OTHER SPECIFIED POSTPROCEDURAL STATES 07/31/2018 DI RILEY, CICI Bowser Ot Z01.818 ENCOUNTER FOR OTHER PREPROCEDURAL EXAMIN 08/02/2018 MERARY SERRA FINE SANDER Ot K42.9 UMBILICAL HERNIA WITHOUT OBSTRUCTION OR 08/02/2018 NICO PEREZ L FINE SANDER Ot J44 .9 CHRONIC OBSTRUCTIVE PULMONARY DISEASE, U 08/02/2018 PEREZNICO CANO L FINE SANDER Ot J45.909 UNSPECIFIED ASTHMA, UNCOMPLICATED 08/02/2018 PEREZTOMER CANOI L FINE SANDER Ot Z79.899 OTHER FILLER SHAKER (CURRENT) DRUG THERAPY 08/02/2018 TOMER PEREZI L FINE SANDER Ot N63 UNSPECIFIED LUMP IN BREAST 08/02/2018 CHRIS NICO L FINE SANDER Ot N64 .4 MASTODYNIA 08/02/2018 PEREZNICO CANO L FINE SANDER Ot D24 .1 BENIGN NEOPLASM OF RIGHT BREAST 08/02/2018 NICO PEREZ L FINE SANDER Ot M54.16 RADICULOPATHY, LUMBAR REGION 08/06/2018 CICI SEVILLA MD Ot K44.9 DIAPHRAGMATIC HERNIA WITHOUT OBSTRUCTION 08/06/2018 CICI SEVILLA MD Ot K57.32 DVTRCLI OF [...] W/O PERFORATION OR ABS 09/03/2018 MERARY SERRA FINE SANDER Ot K42.9 UMBILICAL HERNIA WITHOUT OBSTRUCTION OR 09/03/2018 NICO PEREZ L FINE SANDER Ot J44 .9 CHRONIC OBSTRUCTIVE PULMONARY DISEASE, U 09/03/2018 NICO PEREZ FINE SANDER Ot J45.909 UNSPECIFIED ASTHMA, UNCOMPLICATED 09/03/2018 NICO PEREZ FINE SANDER Ot Z79.899 OTHER CARE HOME (CURRENT) DRUG THERAPY 09/03/2018 NICO PEREZ FINE SANDER Ot N63 UNSPECIFIED LUMP IN BREAST 09/03/2018 NICO PEREZ FINE SANDER Ot N64 .4 MASTODYNIA 09/03/2018 NICO PEREZ FINE SANDER Ot D24 .1 BENIGN NEOPLASM OF RIGHT BREAST 09/03/2018 NICO PEREZ FINE SANDER Ot M54.16 RADICULOPATHY, LUMBAR REGION 09/04/2018 BRAYDON PEREZ MD Ot J45.909 UNSPECIFIED ASTHMA, UNCOMPLICATED 09/04/2018 BRAYDON PEREZ MD Ot K21.9 GASTRO-ESOPHAGEAL REFLUX DISEASE WITHOUT 09/04/2018 BRAYDON PEREZ MD Ot K44.9 DIAPHRAGMATIC HERNIA WITHOUT OBSTRUCTION 09/04/2018 BRAYDON PEREZ MD Ot R10.10 UPPER ABDOMINAL PAIN, UNSPECIFIED 09/04/2018 BRAYDON PEREZ MD Ot Z87.19 PERSONAL HISTORY OF OTHER DISEASES OF TH 09/04/2018 BRAYDON PEREZ MD Ot Z88.5 ALLERGY STATUS TO NARCOTIC AGENT STATUS 09/04/2018 BRAYDON PEREZ MD Ot Z90.710 ACQUIRED ABSENCE OF BOTH CERVIX AND UTER 09/04/2018 BRAYDON PEREZ MD Ot Z98.890 OTHER SPECIFIED POSTPROCEDURAL STATES 11/21/2018 Justice Kyle Final G89. 29 Other chronic pain 11/21/2018 Justice Kyle Final J 45.909 Unspecified asthma, uncomplicated 11/21/2018 Justice Kyle Final K21. 9 Gastro-esophageal reflux disease without esophagitis 11/21/2018 Justice Kyle Admitting K44.9 Diaphragmatic hernia without obstruction or gangrene 11/21/2018 Justice Kyle Final R00. 0 Tachycardia, unspecified 11/21/2018 Justice Kyle Final Z90. 49 Acquired absence of other specified parts of digestive tract 11/21/2018 Vincent,, Diaz Final K44. 0 Diaphragmatic hernia with obstruction, without gangrene 11/27/2018 DI RILEY, CICI M Ot E83.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 METABOLISM 11/27/2018 DI RILEY, CICI Bowser Ot E87.6 HYPOKALEMIA 11/27/2018 DI RILEY, CICI Bowser Ot J18.9 PNEUMONIA, UNSPECIFIED ORGANISM 11/27/2018 DI RILEY, CICI Bowser Ot J45.909 UNSPECIFIED ASTHMA, UNCOMPLICATED 11/27/2018 DI RILEY, CICI Bowser Ot J95.811 POSTPROCEDURAL PNEUMOTHORAX 11/27/2018 CICI SEVILLA [...] MD Ot J18.9 PNEUMONIA, UNSPECIFIED ORGANISM 11/27/2018 DI RILEY, CICI Bowser Ot J45.909 UNSPECIFIED ASTHMA, UNCOMPLICATED 11/27/2018 CICI [...] (SUBCUTANEOUS) RESULTING FROM 11/28/2018 DI RILEY, CICI Bowser Ot E83.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 METABOLISM 11/28/2018 DI RILEY, CICI Bowser Ot E87.6 HYPOKALEMIA 11/28/2018 DI RILEY, CICI Bowser Ot J18.9 PNEUMONIA, UNSPECIFIED ORGANISM 11/28/2018 DI RILEY, CICI Bowser Ot J45.909 UNSPECIFIED ASTHMA, UNCOMPLICATED 11/28/2018 DI RILEY, CICI Bowser Ot J95.811 POSTPROCEDURAL PNEUMOTHORAX 11/28/2018 CICI SEVILLA MD Ot J98.09 OTHER DISEASES OF BRONCHUS, NOT ELSEWHER 11/28/2018 CICI SEVILLA MD Ot J98.11 ATELECTASIS 11/28/2018 CICI SEVILLA MD Ot R00.0 TACHYCARDIA, UNSPECIFIED 11/28/2018 CICI SEVILLA MD Ot R03.0 ELEVATED BLOOD-PRESSURE READING, W/O KATHRYN 11/28/2018 CICI SEVILLA MD Ot R13.10 DYSPHAGIA, UNSPECIFIED 11/28/2018 CICI SEVILLA MD M Ot T81.82XA EMPHYSEMA (SUBCUTANEOUS) RESULTING FROM 11/28/2018 CICI SEVILLA MD Ot E83.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 METABOLISM 11/28/2018 CICI SEVILLA MD Ot E87.6 HYPOKALEMIA 11/28/2018 CICI SEVILLA MD Ot J18.9 PNEUMONIA, UNSPECIFIED ORGANISM 11/28/2018 CICI SEVILLA MD Ot J45.909 UNSPECIFIED ASTHMA, UNCOMPLICATED 11/28/2018 CICI SEVILLA MD Ot J93.9 PNEUMOTHORAX, UNSPECIFIED 11/28/2018 CICI SEVILLA MD Ot J98.09 OTHER DISEASES OF BRONCHUS, NOT ELSEWHER 11/28/2018 CICI SEVILLA MD Ot J98.11 ATELECTASIS 11/28/2018 CICI SEVILLA MD Ot 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 11/28/2018 CICI SEVILLA MD Ot R00.0 TACHYCARDIA, UNSPECIFIED 11/28/2018 CICI SEVILLA MD Ot R03.0 ELEVATED BLOOD-PRESSURE READING, W/O KATHRYN 11/28/2018 SEVILLA MD, CICI M Ot R13.10 DYSPHAGIA, UNSPECIFIED 11/29/2018 [...] CICI Bowser Ot R00.0 TACHYCARDIA, UNSPECIFIED 11/29/2018 DI RILEY, CICI Bowser Ot R03.0 ELEVATED [...] R13.10 DYSPHAGIA, UNSPECIFIED 11/30/2018 DI RILEY, CICI Bowser Ot E44.0 MODERATE PROTEIN-CALORIE MALNUTRITION 11/30/2018 DI RILEY, CICI Bowser Ot E83.39 OTHER [...] J93.9 PNEUMOTHORAX, UNSPECIFIED 11/30/2018 DI RILEY, CICI Bowser Ot J98.09 OTHER DISEASES OF BRONCHUS, NOT ELSEWHER 11/30/2018 DI RILEY, CICI Bowser Ot J98.11 ATELECTASIS 11/30/2018 DI RILEY, CICI Bowser Ot 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 11/30/2018 DI RILEY, CICI Bowser Ot K21.9 GASTRO-ESOPHAGEAL REFLUX DISEASE WITHOUT 11/30/2018 DI RILEY, CICI Bowser Ot R00.0 TACHYCARDIA, UNSPECIFIED 11/30/2018 DI RILEY, CICI Bowser Ot R03.0 ELEVATED BLOOD-PRESSURE READING, W/O KATHRYN 11/30/2018 DI RILEY, CICI Bowser Ot R13.10 DYSPHAGIA, UNSPECIFIED 12/06/2018 BISHOP VAN DO Ot B37.1 PULMONARY CANDIDIASIS 12/06/2018 BISHOP VAN DO Ot D47.3 ESSENTIAL (HEMORRHAGIC) THROMBOCYTHEMIA 12/06/2018 BISHOP VAN DO Ot D64.9 ANEMIA, UNSPECIFIED 12/06/2018 BISHOP VAN DO Ot E46 UNSPECIFIED PROTEIN-CALORIE MALNUTRITION 12/06/2018 BISHOP VAN DO Ot F32.9 MAJOR DEPRESSIVE DISORDER, SINGLE EPISOD 12/06/2018 BISHOP VAN DO Ot G72.81 CRITICAL ILLNESS MYOPATHY 12/06/2018 BISHOP VAN DO Ot J15.21 2 PNEUMONIA DUE TO METHICILLIN RESISTANT S 12/06/2018 BISHOP VAN DO Ot J98.09 OTHER DISEASES OF BRONCHUS, NOT ELSEWHER 12/06/2018 BISHOP VAN DO Ot J98.11 ATELECTASIS 12/06/2018 BISHOP VAN DO Ot K21.9 GASTRO-ESOPHAGEAL REFLUX DISEASE WITHOUT 12/06/2018 GARRY VAN DOI Ot R13.10 DYSPHAGIA, UNSPECIFIED 12/06/2018 GARRY VAN DOI Ot Z48.81 5 ENCNTR FOR SURGICAL AFTCR FOLLOWING SURG 12/07/2018 GARRY VAN DOI Ot B37.1 PULMONARY CANDIDIASIS 12/07/2018 GARRY VAN DOI Ot D47.3 ESSENTIAL (HEMORRHAGIC) THROMBOCYTHEMIA 12/07/2018 REHAN REAL BISHOP Ot D64.9 ANEMIA, UNSPECIFIED 12/07/2018 REHAN REAL BISHOP Ot E46 UNSPECIFIED PROTEIN-CALORIE MALNUTRITION 12/07/2018 BISHOP VAN DO Ot F32.9 MAJOR DEPRESSIVE DISORDER, SINGLE EPISOD 12/07/2018 GARRY VAN DOI Ot G72.81 CRITICAL ILLNESS MYOPATHY 12/07/2018 GARRY VAN DOI Ot J15.21 2 PNEUMONIA DUE TO METHICILLIN RESISTANT S 12/07/2018 GARRY VAN DOI Ot J98.09 OTHER DISEASES OF BRONCHUS, NOT ELSEWHER 12/07/2018 GARRY VAN DOI Ot J98.11 ATELECTASIS 12/07/2018 BISHOP VAN DO Ot K21.9 GASTRO-ESOPHAGEAL REFLUX DISEASE WITHOUT 12/07/2018 BISHOP VAN DO Ot R13.10 DYSPHAGIA, UNSPECIFIED 12/07/2018 BISHOP VAN DO Ot Z48.81 5 ENCNTR FOR SURGICAL AFTCR FOLLOWING SURG 12/08/2018 BISHOP VAN DO Ot B37.1 PULMONARY CANDIDIASIS 12/08/2018 BISHOP VAN DO Ot D47.3 ESSENTIAL (HEMORRHAGIC) THROMBOCYTHEMIA 12/08/2018 GARRY VAN DOI Ot D64.9 ANEMIA, UNSPECIFIED 12/08/2018 GARRY VAN DOI Ot E46 UNSPECIFIED PROTEIN-CALORIE MALNUTRITION 12/08/2018 BISHOP VAN DO Ot F32.9 MAJOR DEPRESSIVE DISORDER, SINGLE EPISOD 12/08/2018 GARRY VAN DOI Ot G72.81 CRITICAL ILLNESS MYOPATHY 12/08/2018 REHAN REAL BISHOP Ot J15.21 2 PNEUMONIA DUE TO METHICILLIN RESISTANT S 12/08/2018 GARRY VAN DOI Ot J98.09 OTHER DISEASES OF BRONCHUS, NOT ELSEWHER 12/08/2018 REHAN REAL BISHOP Ot J98.11 ATELECTASIS 12/08/2018 GARRY AVN DOI Ot K21.9 GASTRO-ESOPHAGEAL REFLUX DISEASE WITHOUT 12/08/2018 GARRY VAN DOI Ot R13.10 DYSPHAGIA, UNSPECIFIED 12/08/2018 REHAN REAL BISHOP Ot Z48.81 5 ENCNTR FOR SURGICAL AFTCR FOLLOWING SURG 12/09/2018 REHAN REAL BISHOP Ot B37.1 PULMONARY CANDIDIASIS 12/09/2018 REHAN REAL BISHOP Ot D47.3 ESSENTIAL (HEMORRHAGIC) THROMBOCYTHEMIA 12/09/2018 REAHN REAL BISHOP Ot D64.9 ANEMIA, UNSPECIFIED 12/09/2018 REHAN REAL BISHOP Ot E46 UNSPECIFIED PROTEIN-CALORIE MALNUTRITION 12/09/2018 GARRY VAN DOI Ot F32.9 MAJOR DEPRESSIVE DISORDER, SINGLE EPISOD 12/09/2018 REHAN REAL BISHOP Ot G72.81 CRITICAL ILLNESS MYOPATHY 12/09/2018 REHAN REAL BISHOP Ot J15.21 2 PNEUMONIA DUE TO METHICILLIN RESISTANT S 12/09/2018 REHAN REAL BISHOP Ot J98.09 OTHER DISEASES OF BRONCHUS, NOT ELSEWHER 12/09/2018 REHAN REAL BISHOP Ot J98.11 ATELECTASIS 12/09/2018 GARRY VAN DOI Ot K21.9 GASTRO-ESOPHAGEAL REFLUX DISEASE WITHOUT 12/09/2018 REHAN REAL BISHOP Ot R13.10 DYSPHAGIA, UNSPECIFIED 12/09/2018 GARRY VAN DOI Ot Z48.81 5 ENCNTR FOR SURGICAL AFTCR FOLLOWING SURG 12/10/2018 BISHOP VAN DO Ot B37.1 PULMONARY CANDIDIASIS 12/10/2018 REHAN REAL BISHOP Ot D47.3 ESSENTIAL (HEMORRHAGIC) THROMBOCYTHEMIA 12/10/2018 REHAN REAL BISHOP Ot D64.9 ANEMIA, UNSPECIFIED 12/10/2018 REHAN REAL BISHOP Ot E46 UNSPECIFIED PROTEIN-CALORIE MALNUTRITION 12/10/2018 REHAN REAL BISHOP Ot F32.9 MAJOR DEPRESSIVE DISORDER, SINGLE EPISOD 12/10/2018 REHAN REAL BISHOP Ot G72.81 CRITICAL ILLNESS MYOPATHY 12/10/2018 REHAN REAL BISHOP Ot J15.21 2 PNEUMONIA DUE TO METHICILLIN RESISTANT S 12/10/2018 BISHOP VAN DO Ot J98.09 OTHER DISEASES OF BRONCHUS, NOT ELSEWHER 12/10/2018 GARRY VAN DOI Ot J98.11 ATELECTASIS 12/10/2018 BISHOP VAN DO Ot K21.9 GASTRO-ESOPHAGEAL REFLUX DISEASE WITHOUT 12/10/2018 GARRY VAN DOI Ot R13.10 DYSPHAGIA, UNSPECIFIED 12/10/2018 BISHOP VAN DO Ot Z48.81 5 ENCNTR FOR SURGICAL AFTCR FOLLOWING SURG 12/11/2018 GARRY VAN DOI Ot B37.1 PULMONARY CANDIDIASIS 12/11/2018 GARRY VAN DOI Ot D47.3 ESSENTIAL (HEMORRHAGIC) THROMBOCYTHEMIA 12/11/2018 GARRY VAN DOI Ot D64.9 ANEMIA, UNSPECIFIED 12/11/2018 GARRY VAN DOI Ot E46 UNSPECIFIED PROTEIN-CALORIE MALNUTRITION 12/11/2018 BISHOP VAN DO Ot F32.9 MAJOR DEPRESSIVE DISORDER, SINGLE EPISOD 12/11/2018 BISHOP VAN DO Ot G72.81 CRITICAL ILLNESS MYOPATHY 12/11/2018 BISHOP VAN DO Ot J15.21 2 PNEUMONIA DUE TO METHICILLIN RESISTANT S 12/11/2018 GARRY VAN DOI Ot J98.09 OTHER DISEASES [...] BISHOP Ot D47.3 ESSENTIAL (HEMORRHAGIC) THROMBOCYTHEMIA 12/11/2018 GARRY VAN DOI Ot D64.9 ANEMIA, UNSPECIFIED 12/11/2018 REHAN REAL BISHOP Ot E46 UNSPECIFIED PROTEIN-CALORIE MALNUTRITION 12/11/2018 GARRY VAN DOI Ot F32.9 MAJOR DEPRESSIVE [...] SURGICAL AFTCR FOLLOWING SURG 12/12/2018 SAM COLLINS DO, Ot J98. 11 ATELECTASIS 12/13/2018 SAM COLLINS DO Ot J98. 09 OTHER DISEASES OF BRONCHUS, NOT ELSEWHER 12/13/2018 SAM COLLINS DO Ot J98. 11 ATELECTASIS 12/13/2018 SAM COLLINS DO Ot J98. 09 OTHER DISEASES OF BRONCHUS, NOT ELSEWHER 12/13/2018 SAM COLLINS DO Ot J98. 11 ATELECTASIS 12/28/2018 SAM COLLINS DO Ot J98. 09 OTHER DISEASES OF BRONCHUS, NOT ELSEWHER 12/28/2018 SAM COLLINS DO Ot J98. 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 01/09/2019 TAI SANCHEZ MD, Ot E43 UNSPECIFIED SEVERE PROTEIN-CALORIE MALNU 01/09/2019 TAI SANCHEZ MD, Ot E86.0 DEHYDRATION 01/09/2019 TAI SANCHEZ MD Ot G72.81 CRITICAL ILLNESS MYOPATHY 01/09/2019 TAI SANCHEZ MD, Ot I10 ESSENTIAL (PRIMARY) HYPERTENSION 01/09/2019 TAI SANCHEZ MD, Ot J45.90 9 UNSPECIFIED ASTHMA, UNCOMPLICATED 01/09/2019 TAI SANCHEZ MD, Ot K21.9 GASTRO-ESOPHAGEAL REFLUX DISEASE WITHOUT 01/09/2019 TAI SANCHEZ MD, Ot K22.2 ESOPHAGEAL OBSTRUCTION 01/09/2019 TAI SANCHEZ MD Ot K91.71 ACCIDENTAL PNCTR LAC OF A DGSTV SYS OR 01/09/2019 TAI SANCHEZ MD, Ot R13.14 DYSPHAGIA, PHARYNGOESOPHAGEAL PHASE 01/09/2019 TAI SANCHEZ MD, Ot R53.81 OTHER MALAISE 01/09/2019 TAI SANCHEZ MD, Ot R64 CACHEXIA 01/09/2019 TAI SANCHEZ MD, Ot R73.9 HYPERGLYCEMIA, UNSPECIFIED 01/09/2019 TAI SANCHEZ MD, Ot Z68.1 BODY MASS INDEX (BMI) 19.9 OR LESS, ADUL 01/13/2019 TAI SANCHEZ MD, Ot Z01.81 8 ENCOUNTER FOR OTHER PREPROCEDURAL EXAMIN 04/30/2019 MALA BLAS MD, Ot D64. 9 ANEMIA, UNSPECIFIED 04/30/2019 MALA BLAS MD, Ot D72.829 ELEVATED WHITE BLOOD CELL COUNT, UNSPECI 04/30/2019 MALA BLAS MD, Ot G89. 29 OTHER CHRONIC PAIN 04/30/2019 MALA BLAS MD, Ot I10 ESSENTIAL (PRIMARY) HYPERTENSION 04/30/2019 MALA BLAS MD, Ot J45.909 UNSPECIFIED ASTHMA, UNCOMPLICATED 04/30/2019 MALA BLAS MD, Ot K21. 9 GASTRO-ESOPHAGEAL REFLUX DISEASE WITHOUT 04/30/2019 MALA BLAS MD, Ot K44. 9 DIAPHRAGMATIC HERNIA WITHOUT OBSTRUCTION 04/30/2019 MALA BLAS MD, Ot M54. 5 LOW BACK PAIN 04/30/2019 MALA BLAS MD, Ot N39. 0 URINARY TRACT INFECTION, SITE NOT SPECIF 04/30/2019 MALA BLAS MD, Ot Z66 DO NOT RESUSCITATE 04/30/2019 MALA BLAS MD, Ot Z79.899 OTHER CARE HOME (CURRENT) DRUG THERAPY 04/30/2019 WAN RILEY, MALA Bowser Ot Z87. 01 PERSONAL HISTORY OF PNEUMONIA (RECURRENT 04/30/2019 WAN RILEY, MALA Bowser Ot Z88. 5 ALLERGY STATUS TO NARCOTIC AGENT STATUS 04/30/2019 WAN RILEY, MALA Bowser Ot Z93. 1 GASTROSTOMY STATUS 04/30/2019 WAN RILEY, MALA Bowser Ot Z93. 4 OTHER ARTIFICIAL OPENINGS OF GASTROINTES 08/01/2019 MERARY SERRA FINE SANDER Ot K42.9 UMBILICAL HERNIA WITHOUT OBSTRUCTION OR 08/01/2019 PEREZ, NICO L FINE SANDER Ot J44 .9 CHRONIC OBSTRUCTIVE PULMONARY DISEASE, U 08/01/2019 PEREZ, NICO L FINE SANDER Ot J45.909 UNSPECIFIED ASTHMA, UNCOMPLICATED 08/01/2019 PEREZ, NICO L FINE SANDER Ot Z79.899 OTHER FILLER SHAKER (CURRENT) DRUG THERAPY 08/01/2019 PEREZ, NICO L FINE SANDER Ot N63 UNSPECIFIED LUMP IN BREAST 08/01/2019 CHRIS NICO L FINE SANDER Ot N64 .4 MASTODYNIA 08/01/2019 PEREZ, NICO L FINE SANDER Ot D24 .1 BENIGN NEOPLASM OF RIGHT BREAST 08/01/2019 PEREZ, NICO L FINE SANDER Ot M54.16 RADICULOPATHY, LUMBAR REGION 08/01/2019 SAM COLLINS DO Ot J98. 09 OTHER DISEASES OF BRONCH[place], NOT ELSEWHER 08/01/2019 SAM COLLINS DO Ot J98. 11 ATELECTASIS 11/16/2019 MERARY SERRA FINE SANDER Ot K42.9 UMBILICAL HERNIA WITHOUT OBSTRUCTION OR 11/16/2019 PEREZ, NICO L FINE SANDER Ot J44 .9 CHRONIC OBSTRUCTIVE PULMONARY DISEASE, U 11/16/2019 PEREZ, NICO L FINE SANDER Ot J45.909 UNSPECIFIED ASTHMA, UNCOMPLICATED 11/16/2019 PEREZ, NICO L FINE SANDER Ot Z79.899 OTHER CARE HOME (CURRENT) DRUG THERAPY 11/16/2019 PEREZ, NICO L FINE SANDER Ot N63 UNSPECIFIED LUMP IN BREAST 11/16/2019 PEREZ, NICO L FINE SANDER Ot N64 .4 MASTODYNIA 11/16/2019 PEREZ, NICO L FINE SANDER Ot D24 .1 BENIGN NEOPLASM OF RIGHT BREAST 11/16/2019 NICO PEREZ FINE SANDER Ot M54.16 RADICULOPATHY, LUMBAR REGION 11/16/2019 SAM COLLINS DO, Ot J98. 09 OTHER DISEASES OF BRONCH[place], NOT ELSEWHER 11/16/2019 SAM COLLINS DO, Ot J98. 11 ATELECTASIS 11/16/2019 MARIEE DO, [...] ISCHEM HEART DIS AND OTH DI 11/19/2019 MARIEE DO, JOSE L Ot Z88.5 ALLERGY STATUS TO NARCOTIC AGENT STATUS 11/19/2019 MERARY SERRA FINE SANDER Ot K42.9 UMBILICAL HERNIA WITHOUT OBSTRUCTION OR 11/19/2019 NICO PEREZ FINE SANDER Ot J44 .9 CHRONIC OBSTRUCTIVE PULMONARY DISEASE, U 11/19/2019 NICO PEREZ FINE SANDER Ot J45.909 UNSPECIFIED ASTHMA, UNCOMPLICATED 11/19/2019 NICO PEREZ FINE SANDER Ot Z79.899 OTHER CARE HOME (CURRENT) DRUG THERAPY 11/19/2019 NICO PEREZ FINE SANDER Ot N63 UNSPECIFIED LUMP IN BREAST 11/19/2019 NICO PEREZ FINE SANDER Ot N64 .4 MASTODYNIA 11/19/2019 NICO PEREZ FINE SANDER Ot D24 .1 BENIGN NEOPLASM OF RIGHT BREAST 11/19/2019 NICO PEREZ FINE SANDER Ot M54.16 RADICULOPATHY, LUMBAR REGION 11/19/2019 SAM COLLINS DO Ot J98. 09 OTHER DISEASES OF BRONCH[place], NOT ELSEWHER 11/19/2019 SAM COLLINS DO, Ot J98. 11 ATELECTASIS 11/19/2019 CARITO BACON FINE SANDER Ot J45.909 UNSPECIFIED ASTHMA, UNCOMPLICATED 11/19/2019 CARITO BACON FINE SANDER Ot K94.23 GASTROSTOMY MALFUNCTION 11/19/2019 CARITO BACON FINE SANDER Ot Z82.49 FAMILY HX OF ISCHEM HEART DIS AND OTH DI 11/19/2019 CARITO BACON FINE SANDER Ot Z88 .5 ALLERGY STATUS TO NARCOTIC AGENT STATUS 11/19/2019 MERARY SERRA FINE SANDER Ot K42.9 UMBILICAL HERNIA WITHOUT OBSTRUCTION OR 11/19/2019 NICO PEREZ FINE SANDER Ot J44 .9 CHRONIC OBSTRUCTIVE PULMONARY DISEASE, U 11/19/2019 NICO PEREZ L FINE SANDER Ot J45.909 UNSPECIFIED ASTHMA, UNCOMPLICATED 11/19/2019 CHRIS NICO L FINE SANDER Ot Z79.899 OTHER FILLER SHAKER (CURRENT) DRUG THERAPY 11/19/2019 NICO PEREZ L FINE SANDER Ot N63 UNSPECIFIED LUMP IN BREAST 11/19/2019 TOMER PEREZI L FINE SANDER Ot N64 .4 MASTODYNIA 11/19/2019 NICO PEREZ FINE SANDER Ot D24 .1 BENIGN NEOPLASM OF RIGHT BREAST 11/19/2019 CHRIS NICO L FINE SANDER Ot M54.16 RADICULOPATHY, LUMBAR REGION 11/19/2019 SAM COLLINS DO Ot J98. 09 OTHER DISEASES OF BR[place], NOT ELSEWHER 11/19/2019 SAM COLLINS DO Ot J98. 11 ATELECTASIS 11/21/2019 REHAN REAL BISHOP Ot A41.9 SEPSIS, UNSPECIFIED ORGANISM 11/21/2019 REHAN REAL BISHOP Ot I10 ESSENTIAL (PRIMARY) HYPERTENSION 11/21/2019 REHAN REAL BISHOP Ot J45.90 9 UNSPECIFIED ASTHMA, UNCOMPLICATED 11/21/2019 REHAN REAL BISHOP Ot K21.9 GASTRO-ESOPHAGEAL REFLUX DISEASE WITHOUT 11/21/2019 REHAN REAL BISHOP Ot K94.22 GASTROSTOMY INFECTION 11/21/2019 REHAN REAL BISHOP Ot L03.31 1 CELLULITIS OF ABDOMINAL WALL 11/21/2019 REHAN REAL BISHOP Ot M54.9 DORSALGIA, UNSPECIFIED 11/21/2019 REHAN REAL BISHOP Ot N39.0 URINARY TRACT INFECTION, SITE NOT SPECIF 11/22/2019 VAN DO, BISHOP Ot A41.9 SEPSIS, UNSPECIFIED ORGANISM 11/22/2019 VAN DO, BISHOP Ot I10 ESSENTIAL (PRIMARY) HYPERTENSION 11/22/2019 AVN DO, BISHOP Ot J45.90 9 UNSPECIFIED ASTHMA, UNCOMPLICATED 11/22/2019 VAN DO, BISHOP Ot K21.9 GASTRO-ESOPHAGEAL REFLUX DISEASE WITHOUT 11/22/2019 VAN DO, BISHOP Ot K94.22 GASTROSTOMY INFECTION 11/22/2019 VAN DO, BISHOP Ot L03.31 1 CELLULITIS OF ABDOMINAL WALL 11/22/2019 VAN DO, BISHOP Ot M54.9 DORSALGIA, UNSPECIFIED 11/22/2019 VAN DO, BISHOP Ot N39.0 URINARY TRACT INFECTION, SITE NOT SPECIF 11/22/2019 MERARY SERRA FINE SANDER Ot K42.9 UMBILICAL HERNIA WITHOUT OBSTRUCTION OR 11/22/2019 NICO PEREZ FINE SANDER Ot J44 .9 CHRONIC OBSTRUCTIVE PULMONARY DISEASE, U 11/22/2019 NICO PEREZ FINE SANDER Ot J45.909 UNSPECIFIED ASTHMA, UNCOMPLICATED 11/22/2019 NICO PEREZ FINE SANDER Ot Z79.899 OTHER CARE HOME (CURRENT) DRUG THERAPY 11/22/2019 NICO PEREZ L FINE SANDER Ot N63 UNSPECIFIED LUMP IN BREAST 11/22/2019 NICO PEREZ L FINE SANDER Ot N64 .4 MASTODYNIA 11/22/2019 NICO PEREZ L FINE SANDER Ot D24 .1 BENIGN NEOPLASM OF RIGHT BREAST 11/22/2019 NICO PEREZ FINE SANDER Ot M54.16 RADICULOPATHY, LUMBAR REGION 11/22/2019 SAM COLLINS DO Ot J98. 09 OTHER DISEASES OF BRONCHUS, NOT ELSEWHER 11/22/2019 SAM COLLINS DO Ot J98. 11 ATELECTASIS 11/22/2019 VAN DO, BISHOP Ot A41.9 SEPSIS, [...] J45.909 UNSPECIFIED ASTHMA, UNCOMPLICATED 11/23/2019 CARITO BACON FINE SANDER Ot K94.23 GASTROSTOMY MALFUNCTION 11/23/2019 CARITO BACON FINE SANDER Ot Z82.49 FAMILY HX OF ISCHEM HEART DIS AND OTH DI 11/23/2019 CARITO BACON APRN Ot Z88 .5 ALLERGY STATUS TO NARCOTIC AGENT STATUS 11/23/2019 VAN DO, BISHOP Ot A41.9 SEPSIS, UNSPECIFIED ORGANISM 11/23/2019 VAN DO, BISHOP Ot I10 ESSENTIAL (PRIMARY) HYPERTENSION 11/23/2019 VAN DO, BISHOP Ot J45.90 9 UNSPECIFIED ASTHMA, UNCOMPLICATED 11/23/2019 VAN DO, BISHOP Ot K21.9 GASTRO-ESOPHAGEAL REFLUX DISEASE WITHOUT 11/23/2019 VAN DO, BISHOP Ot K94.22 GASTROSTOMY INFECTION 11/23/2019 VAN DO, BISHOP Ot L03.31 1 CELLULITIS OF ABDOMINAL WALL 11/23/2019 VAN DO, BISHOP Ot M54.9 DORSALGIA, UNSPECIFIED 11/23/2019 VAN DO, BISHOP Ot N39.0 URINARY TRACT INFECTION, SITE NOT SPECIF 11/25/2019 VAN DO, BISHOP Ot A41.9 SEPSIS, UNSPECIFIED ORGANISM 11/25/2019 VAN DO, BISHOP Ot I10 ESSENTIAL (PRIMARY) HYPERTENSION 11/25/2019 VAN DO, BISHOP Ot J45.90 9 UNSPECIFIED ASTHMA, UNCOMPLICATED 11/25/2019 VAN DO, BISHOP Ot K21.9 GASTRO-ESOPHAGEAL REFLUX DISEASE WITHOUT 11/25/2019 VAN DO, BISHOP Ot K94.22 GASTROSTOMY INFECTION 11/25/2019 VAN DO, BISHOP Ot L03.31 1 CELLULITIS OF ABDOMINAL WALL 11/25/2019 VAN DO, BISHOP Ot M54.9 DORSALGIA, UNSPECIFIED 11/25/2019 VAN DO, BISHOP Ot N39.0 URINARY TRACT INFECTION, SITE NOT SPECIF 11/25/2019 VAN DO, BISHOP Ot A41.9 SEPSIS, UNSPECIFIED ORGANISM 11/25/2019 VAN DO, BISHOP Ot D47.3 ESSENTIAL (HEMORRHAGIC) THROMBOCYTHEMIA 11/25/2019 VAN DO, BISHOP Ot D64.9 ANEMIA, UNSPECIFIED 11/25/2019 VAN DO, BISHOP Ot E46 UNSPECIFIED PROTEIN-CALORIE MALNUTRITION 11/25/2019 VAN DO, BISHOP Ot E87.6 HYPOKALEMIA 11/25/2019 VAN DO, BISHOP Ot F32.9 MAJOR DEPRESSIVE DISORDER, SINGLE EPISOD 11/25/2019 VAN DO, BISHOP Ot I10 ESSENTIAL (PRIMARY) HYPERTENSION 11/25/2019 VAN DO, BISHOP Ot J45.90 9 UNSPECIFIED ASTHMA, UNCOMPLICATED 11/25/2019 VAN DO, BISHOP Ot K21.9 GASTRO-ESOPHAGEAL REFLUX DISEASE WITHOUT 11/25/2019 VAN DO, BISHOP Ot K56.7 ILEUS, UNSPECIFIED 11/25/2019 VAN DO, BISHOP Ot K94.22 GASTROSTOMY INFECTION 11/25/2019 VAN DO, BISHOP Ot L03.31 1 CELLULITIS OF ABDOMINAL WALL 11/25/2019 VAN DO, BISHOP Ot M54.9 DORSALGIA, UNSPECIFIED 11/25/2019 VAN DO, BISHOP Ot N39.0 URINARY TRACT INFECTION, SITE NOT SPECIF 11/25/2019 VAN DO, BISHOP Ot R13.10 DYSPHAGIA, UNSPECIFIED 11/25/2019 VAN DO, BISHOP Ot R64 CACHEXIA 11/25/2019 VAN DO, BISHOP Ot Z91.19 PATIENT'S NONCOMPLIANCE W [facility] TR 11/25/2019 VAN DO, BISHOP Ot Z99.81 DEPENDENCE ON SUPPLEMENTAL OXYGEN Procedures Code Description Performed By Per formed On [id number] JALLOH PPLEMENT R DIAPHRAGM WITH NONAUT SUB, 01/13/2016 [id number] JALLOH PPLEMENT L DIAPHRAGM WITH NONAUT SUB, 01/13/2016 [id number] RE POSITION STOMACH, PERCUTANEOUS ENDOSCO 01/13/2016 [id number] RE POSITION TRANSVERSE COLON, PERC ENDO A 01/13/2016 [id number] 01/13/2016 [id number] RE STRICTION OF ESOPHAGOGASTRIC JUNCTION, 01/13/20 16 [id number] RE POSITION PANCREAS, PERCUTANEOUS ENDOSC 01/13/2016 [id number] RO BOTIC ASSISTED PROCEDURE OF TRUNK, PER 01/13/2016 [id number] Ro botic Assisted Procedure of Trunk Region, Percutaneous Endoscopic Approac 11/14/[id number] ROB OF L PLEURAL CAV WITH DRAIN DEV 11/23/[id number] ROB OF LEFT LOWER LOBE BRONCHUS, EN 11/25/2018 [id number] EX TIRPATION OF MATTER FROM LEFT LOWER LO 11/25/2018 [id number] EX TIRPATION OF MATTER FROM RIGHT MAIN BR 12/06/2018 [id number] EX TIRPATION OF MATTER FROM LEFT MAIN BRO 12/06/2018 [id number] EX CISION OF ESOPHAGOGASTRIC JUNCTION, EN 01/08/2019 [...] INFLUENZA A AND B ANTIGENS BY IA [facility] Comprehensive metabolic panel - 11/23/18 14:57 Serum [...] FEW NRG C FUNGUS SPUTUM FLUID TISSUE [id number] N RG Mycobacterium species detection by organ [...] Blood lactic acid measurement (moles/vol ume) - 03/11/19 20:15 Blood lactic acid measurement (moles/volume) 1.09 [...] indirect bilirubin measurement (mass/v olume) 0.1 mg/dL NR Complete blood count (CBC) with automate d [...] FOLLOW NRG C FUNGUS SPUTUM FLUID TISSUE [id number] N RG Mycobacterium species detection by organ [...] culture - 04/29/19 12:24 Bacterial urine culture [id number] NRG COLONY COUNT >100,000/ML NRG FTX;REPORTABLE SUSCEPTIBILITY [...] Few Gram positive cocci in c lusters NRG Bacteria identification in wound by cult ure - 04/29/19 15:42 Bacteria identification in wound by culture [id number] 003 NRG FREE TEXT EXTERNAL NO BETA [...] culture - 11/20/19 20:54 Bacterial urine culture [id number] NRG COLONY COUNT >100,000/ML NRG FTX;REPORTABLE SUSCEPTIBILITY REPORTED 11-24-19, 114 9 NRG FREE TEXT ENTRY 2 PRELIM RAPID ID TEST AT [facility] 11/20 16:45 NRG FREE TEXT ENTRY 3 RML REPORTED E COLI ID 3/6 A.M. NRG Dirithromycin susceptibility test by dis [...] NRG Manual blood lymphocytes/100 leukocytes 24 % NRG Manual eosinophils/100 leukocytes in nose 1 % NRG Blood erythrocyte morphology finding identification NORMAL NR Comprehensive metabolic panel - 11/21/19 06:05 Serum [...] CORRECTED 8.9 mg/dL 8.5-10.1 Radiology Report from [id number] on 11/16 06:44:00 Reason For ExamTo check [...] time (in minut es): .45 minDictated on workstation:[id number] Line FINAL DICTATED BY: VENTURA REYNOSO MDDICTATED DT/TM: 11/15/2018 2:42 PMSIGNED BY: VENTURA REYNOSO MDSIGNED (ELECTRONIC SIGNATURE): 11/15/2018 4:56 PMTECHNOLOGIST: MADELEINE SORTO ARRT Encounters ACCT No. Visit Date/Time Discharge Status Pt. Type Provider Facility Loc./Unit Complaint [id number] 09/24/2018 09:52:00 019 23:59:00 DIS Outpatient Diaz Justice [facility] FC Surg NPV Hernia [id number] 09/25/2018 05:21:41 Document Registration [id number] 11/20/2019 23:00:00 16:25:00 DIS Inpatient BISHOP VAN DO, V [facility] 4TH SEPSIS, UTI, CELLUTITIS [id number] 11/19/2019 11:17:00 11:56:00 DIS Emergency CARITO BACON FINE SANDER Via [facility] ER FEEDING TUBE ISSUES [id number] 11/16/2019 09:11:00 11:52:00 DIS Emergency JOSE MARIEE DO [facility] ER DIGESTIVE TUBE FELL OUT [id number] 04/29/2019 18:50:00 16:40:00 DIS Inpatient WAN RILEY, MALA Bowser [facility] 4TH UTI,CHRONIC PAIN [id number] 01/08/2019 16:15:00 16:55:00 DIS Inpatient TAI SANCHEZ MD [facility] 4TH DYSPHAGIA [id number] 01/07/2019 12:52:00 13:16:00 DIS Outpatient TAI SANCHEZ MD [facility] PREOP EGD [id number] 01/03/2019 10:15:00 23:59:59 CLS Preadmit NICO PEREZ FINE SANDER [facility] RAD ABN WEIGHT LOSS,HTN,CHR ONIC PAIN [id number] 11/30/2018 11:25:00 10:25:00 DIS Inpatient BISHOP VAN DO, V [facility] IRF DEBILITY, PNUEMONIA [id number] 12/06/2018 08:46:00 23:59:59 CLS Outpatient SAM COLLINS DO [facility] ENDO PERSISTENT WORSENING AT ELECTASIS [id number] 11/23/2018 19:05:00 11:20:00 DIS Inpatient DI RILEY, CICI Bowser [facility] 4TH PNEUMOTHORAX,LEFT [id number] 09/03/2018 20:06:00 01:59:00 DIS Emergency BRAYDON PEREZ MD [facility] ER HAD EPIDURAL DO NE TODAY/STOMACH PAIN [id number] 08/06/2018 09:02:00 018 23:59:59 CLS Outpatient CICI SEVILLA MD [facility] ENDO EPIGASTIC PAIN/GERD [id number] 07/31/2018 06:38:00 15:21:00 DIS Outpatient CICI SEVILLA MD [facility] PREOP EGD [id number] 07/17/2018 07:36:00 10:55:00 DIS Emergency CHEVY BANDA MD [facility] ER ABD PAIN [id number] 06/16/2017 07:40:00 017 23:59:59 CLS Outpatient NICO PEREZ APRN [facility] RAD LUMBAR RADICULOPATHY [id number] 12/28/2016 08:29:00 017 23:59:59 CLS Outpatient NICO PEREZ FINE SANDER [facility] RAD RT BREAST MASS [id number] 12/20/2016 07:35:00 017 23:59:59 CLS Outpatient NICO PEREZ APRN [facility] RAD RT BREAST PAIN,TUGGING X1 MONTH [id number] 08/30/2016 07:23:00 016 23:59:59 CLS Outpatient NICO PEREZ FINE SANDER [facility] LAB FILLER SHAKER MEDICATIONS USE,ASTHMA/COPD [id number] 06/15/2016 07:22:00 016 13:00:00 DIS Outpatient CICI SEVILLA MD [facility] SDC VENTRAL HERNIA [id number] 06/13/2016 05:51:00 016 14:36:00 DIS Outpatient CICI SEVILLA MD [facility] PREOP VENTRAL HERNIA [id number] 06/07/2016 14:29:00 016 23:59:59 CLS Outpatient MERARY SERRA FINE SANDER [facility] RAD UMBILICAL HERNIA,SEVER E PAIN W/ UMBILICAL BULGE [id number] 01/13/2016 08:57:00 12:30:00 DIS Inpatient DI RILEY, CICI Bowser [facility] 4TH HIATAL HERNIA [id number] 01/07/2016 08:48:00 016 09:23:00 DIS Outpatient CICI SEVILLA MD [facility] PREOP HIATAL HERNIA [id number] 12/21/2015 11:52:00 016 15:20:00 DIS Outpatient DI RILEY, CICI Bowser [facility] SDC UPPER GASTRIC PAIN [id number] 12/08/2015 09:39:00 13:02:00 DIS Emergency JACQUELIN RIVERA DO [facility] ER CP, CHEST TIGHTNESS [id number] 12/18/2015 07:34:00 Document Registration [id number] 12/08/2015 13:09:00 Document Registration [id number] 12/08/2015 13:09:00 Document Registration [id number] 11/28/2014 08:18:00 Document Registration [id number] 11/15/2019 11:40:00 11/15/2019 23:59: 59 C[id number] 08/19/2019 16:00:00 Document Registration [id number] 11/14/2018 09:25:00 16:28:00 DIS Inpatient Justice Kyle [facility] [place] VCF F7SE recurrent paraesopha geal hernia // robot assist recurrent pa [id number] 11/17/2018 05:20:34 Document Registration [id number] 11/16/2018 05:20:24 Document Registration [id number] 11/15/2018 05:19:53 Document Registration
[2020-04-19 08:26] VITALS: BP 92/68
--- NOTE | 2020-04-19 08:30 | ED GI ---
General Stated Complaint: FEEDING TUBE PROBLEMS History of Present Illness Date Seen by Provider: Apr 19, 2020 Time Seen by Provider: 08:30 Initial Comments 59-year-old female presents with dislodgment of her gastrostomy tube. She reports it happened around 7 AM this morning. Patient to his been there for many years. She denies any other complaints. Patient has both a G-tube and J-tube present. She had procedures done at [facility] but has not followed up with them in a long time. Allergies and Home Medications Allergies Coded Allergies: codeine (Unverified Adverse Reaction, Unknown, 09/03/18) severe stomach pain Home Medications Fentanyl 1 Each Patch.td72, 25 MCG TD Q72H Prescribed by: BISHOP VAN on 11/25/19 1008 Hydrocodone/Acetaminophen 118 Ml Solution, 20 ML PEG Q6H PRN for PAIN-MODERATE Prescribed by: BISHOP VAN on 11/25/19 1008 Lorazepam 0.5 Mg Tablet, 0.5 MG SL Q6H PRN for AGITATION Prescribed by: BISHOP VAN on 11/25/19 1008 Melatonin 3 Mg Tablet, 3 MG PO HS PRN for SLEEP, (Reported) Metoclopramide HCl 10 Mg Tablet, 10 MG PO QIDPCHS PRN for NAUSEA/VOMITING-3RD LINE, (Reported) Prochlorperazine Maleate 10 Mg Tablet, 10 MG PO Q4H PRN for NAUSEA/VOMITING-4TH LINE, (Reported) Promethazine HCl 25 Mg Tablet, 25 MG PO Q3HR PRN for NAUSEA/VOMITING Prescribed by: ROHAN MONTES on 11/25/19 1506 Patient Home Medication List Home Medication List Reviewed: Yes Review of Systems Review of Systems Constitutional: No chills, No fever Respiratory: Denies Cough, Denies Shortness of Air Gastrointestinal: See HPI; Denies Abdomen Distended, Denies Abdominal Pain Musculoskeletal: no symptoms reported Skin: no symptoms reported Psychiatric/Neurological: No Symptoms Reported Endocrine: No Symptoms Reported Past Jqkwdxb-Jkdfuy-Wuriji Hx Past Med/Social Hx: Reviewed Nursing Past Med/Soc Hx Patient Social History 2nd Hand Smoke Exposure: No Recent Foreign Travel: No Contact w/Someone Who Travel: No Recent Hopitalizations: No Immunizations Up To Date Tetanus Booster (TDap): Unknown Date of Pneumonia Vaccine: Sep 18, 2019 Date of Influenza Vaccine: Nov 15, 2019 Seasonal Allergies Seasonal Allergies: Yes Past Medical History Surgeries: Yes (GASTRIC) Abdominal, Gallbladder, Hysterectomy Respiratory: Yes Asthma Currently Using CPAP: No Currently Using BIPAP: No Cardiac: Yes Hypertension Neurological: No 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 Disorders: No Female 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 Disorders: Denies 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 Sexually Transmitted Disease: No HIV/AIDS: No Genitourinary: No Gastrointestinal: Yes (Blind esophagus, G-tube, J-tube) Gastroesophageal Reflux, Hiatal Hernia Musculoskeletal: Yes Chronic Back Pain Endocrine: No HEENT: No Loss of Vision: Bilateral Hearing Impairment: Denies Cancer: No Psychosocial: No Integumentary: No Blood Disorders: No Adverse Reaction/Blood Tranf: No Family Medical History Hypertension 19 FATHER G8 SISTER No Pertinent Family Hx Physical Exam Vital Signs Vital Signs - First Documented 04/19/20 08:26 Temp 36.7 Pulse 104 Resp 18 B/P (MAP) 92/68 (76) Pulse Ox 100 O2 Delivery Room Air Capillary Refill : Height/Weight/BMI Height: 4'11.00" Weight: 98lbs. 14.4oz. 44.620196wh; 18.44 BMI Method:Stated General Appearance: no apparent distress, cachetic, other (chronically ill) Respiratory: no respiratory distress, no accessory muscle use Cardiovascular: other (stoma for G-tube with tube missing. J-tube present other drainage tube present) Gastrointestinal: non tender, soft Procedures/Interventions Patient Education: Explained Benefits, Explained Risks, Pt. Ack. Understanding Breath Sounds per Auscultation: Crackles, Wheezes Heart Sounds per Auscultation: Regular Airway Exam: Mouth opens >2 fingers, Neck Full Range of Motion, Visulation of Uvula Sedation Adminstration Time: 1803 Re-examination Time: 1845 Additional Procedures: gastric tube replacement Progress Gastric tube was replaced with an 18 Polish. Patient tolerated well with no immediate complications Progress/Results/Core Measures Results/Orders Vital Signs/I&O 04/19/20 08:26 Temp 36.7 Pulse 104 Resp 18 B/P (MAP) 92/68 (76) Pulse Ox 100 O2 Delivery Room Air Departure Impression Primary Impression: Dislodged gastrostomy tube Disposition: 01 HOME, SELF-CARE Condition: Stable Departure-Patient Inst. Referrals: CHIQUITA RICH MD (PCP/Family) Primary Care Physician Patient Instructions: How to Care for Your PEG Tube , Gastrostomy, Permanent and Temporary (DC) Add. Discharge Instructions: Follow-up with [facility] or a general surgeon next week for continuation of care and recheck JOSE MARIEE DO Apr 19, 2020 08:30
--- NOTE | 2020-04-19 09:06 | NUR ---
Spoke with pt's daughter via phone regarding discharge plan.
== END 2020-04-19 09:08 | disposition home or self-care (01) ==
LOC: EDUNIT# 07:47 → ER 07:49
DX: Z43.1 Encounter for attention to gastrostomy (principal); I10 Essential (primary) hypertension; J45.909 Unspecified asthma, uncomplicated; M54.9 Dorsalgia, unspecified; G89.29 Other chronic pain; Z79.899 Other long term (current) drug therapy; Z88.5 Allergy status to narcotic agent
CPT/HCPCS: 99282

== ENCOUNTER 2020-04-22 07:44 | Emergency (ER) | payer SELFPAY ==
[~2020-04-22] VITALS: Ht 149.6 cm; Wt 40.9 kg
--- NOTE | 2020-04-22 08:05 | ED GI ---
General Chief Complaint: Catheter/Drain/Tube Problems Stated Complaint: DENTAL PAIN Source of Information: Patient Exam Limitations: No Limitations History of Present Illness Date Seen by Provider: Apr 22, 2020 Time Seen by Provider: 07:46 Initial Comments Patient presents ER by private conveyance with chief complaint that this morning around 6 am, she had a PEG tube displaced accidentally. She says it was on her left flank and goes into her esophagus. She also has a PEG tube in her stomach but she does feeds through and a third tube which she says she does not do anything with and it does not drain. She is not sure what is 4. She is a history of multiple surgeries. She says it started off with a hernia surgery that she then developed recurrent pneumothoraces and had spent 4 months in the hospital. She does not member what all surgeries were done to her stomach but she now has 3 indwelling gastric tubes. She does not have any urinary tubes. She's not having any fever chills nausea vomiting. She has a normal amount of small drainage. She's noticed that the tube was recently displaced from her esophagus has been having decreased drainage over the past 4 days. She had her initial surgery in [place] and Dr. Milner locally had done surgery as well as she's had multiple surgeries through . Allergies and Home Medications Allergies Coded Allergies: codeine (Unverified Adverse Reaction, Unknown, 09/03/18) severe stomach pain Home Medications Fentanyl 1 Each Patch.td72, 25 MCG TD Q72H Prescribed by: BISHOP VAN on 11/25/19 1008 Hydrocodone/Acetaminophen 118 Ml Solution, 20 ML PEG Q6H PRN for PAIN-MODERATE Prescribed by: BISHOP VAN on 11/25/19 1008 Lorazepam 0.5 Mg Tablet, 0.5 MG SL Q6H PRN for AGITATION Prescribed by: BISHOP VAN on 11/25/19 1008 Melatonin 3 Mg Tablet, 3 MG PO HS PRN for SLEEP, (Reported) Metoclopramide HCl 10 Mg Tablet, 10 MG PO QIDPCHS PRN for NAUSEA/VOMITING-3RD LINE, (Reported) Prochlorperazine Maleate 10 Mg Tablet, 10 MG PO Q4H PRN for NAUSEA/VOMITING-4TH LINE, (Reported) Promethazine HCl 25 Mg Tablet, 25 MG PO Q3HR PRN for NAUSEA/VOMITING Prescribed by: ROHAN MONTES on 11/25/19 1506 Patient Home Medication List Home Medication List Reviewed: Yes Review of Systems Review of Systems Constitutional: No chills, No diaphoresis EENTM: No Blurred Vision, No Double Vision Respiratory: Denies Cough, Denies Shortness of Air Cardiovascular: Denies Chest Pain, Denies Lightheadedness Gastrointestinal: Denies Constipated, Denies Diarrhea Genitourinary: Denies Burning, Denies Discharge Musculoskeletal: No back pain, No joint pain Skin: No pruritus, No rash All Other Systems Reviewed Negative Unless Noted: Yes Past Alwoklo-Llbqhb-Kknurx Hx Patient Social History Alcohol Use: Denies Use Recreational Drug Use: No Smoking Status: Never a Smoker 2nd Hand Smoke Exposure: No Recent Foreign Travel: No Contact w/Someone Who Travel: No Recent Hopitalizations: No Immunizations Up To Date Tetanus Booster (TDap): Unknown Date of Pneumonia Vaccine: Sep 18, 2019 Date of Influenza Vaccine: Nov 15, 2019 Seasonal Allergies Seasonal Allergies: Yes Past Medical History Surgeries: Yes (GASTRIC) Abdominal, Gallbladder, Hysterectomy Respiratory: Yes Asthma Currently Using CPAP: No Currently Using BIPAP: No Cardiac: Yes Hypertension Neurological: No 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 Disorders: No 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 Sexually Transmitted Disease: No HIV/AIDS: No Genitourinary: No Gastrointestinal: Yes (Blind esophagus, G-tube, J-tube) Gastroesophageal Reflux, Hiatal Hernia Musculoskeletal: Yes Chronic Back Pain Endocrine: No HEENT: No Loss of Vision: Bilateral Hearing Impairment: Denies Cancer: No Psychosocial: No Integumentary: No Blood Disorders: No Adverse Reaction/Blood Tranf: No Family Medical History Hypertension 19 FATHER G8 SISTER No Pertinent Family Hx Physical Exam Vital Signs Vital Signs - First Documented 04/22/20 07:50 Temp 36.0 Pulse 100 B/P (MAP) 112/72 (85) Pulse Ox 18 O2 Delivery Nasal Cannula O2 Flow Rate 2.00 Capillary Refill : Height/Weight/BMI Height: 4'11.00" Weight: 98lbs. 14.4oz. [id number]; 17.00 BMI Method:Stated General Appearance: WD/WN, no apparent distress HEENT: PERRL/EOMI, pharynx normal Neck: non-tender, normal inspection Respiratory: lungs clear, normal breath sounds, no respiratory distress, no accessory muscle use Cardiovascular: normal peripheral pulses, regular rate, rhythm, tachycardia Peripheral Pulses: 2+ Radial Pulses (R), 2+ Radial Pulses (L) Gastrointestinal: normal bowel sounds, non tender, soft, other (left esophagostomy with some healthy granulation tissue peduncle and clear ointment without significant drainage/discharge.) Extremities: normal range of motion, non-tender, normal capillary refill Neurologic/Psychiatric: alert, normal mood/affect, oriented x 3 Skin: normal color, warm/dry Procedures/Interventions Patient Education: Explained Benefits, Explained Risks, Pt. Ack. Understanding Breath Sounds per Auscultation: Crackles, Wheezes Heart Sounds per Auscultation: Regular Airway Exam: Mouth opens >2 fingers, Neck Full Range of Motion, Visulation of Uvula Sedation Adminstration Time: 180 Re-examination Time: 1844 Progress/Results/Core Measures Results/Orders Lab Results Laboratory Tests Test 04/22/20 08:44 Range/Units White Blood Count 8.7 4.3-11.0 10^3/uL Red Blood Count 2.68 L 4.35-5.85 10^6/uL Hemoglobin 9.2 L 11.5-16.0 G/DL Hematocrit 28 L 35-52 % Mean Corpuscular Volume 104 H 80-99 FL Mean Corpuscular Hemoglobin 34 25-34 PG Mean Corpuscular Hemoglobin Concent 33 32-36 G/DL Red Cell Distribution Width 11.8 10.0-14.5 % Platelet Count 342 130-400 10^3/uL Mean Platelet Volume 8.1 7.4-10.4 FL Neutrophils (%) (Auto) 70 42-75 % Lymphocytes (%) (Auto) 22 12-44 % Monocytes (%) (Auto) 7 0-12 % Eosinophils (%) (Auto) 2 0-10 % Basophils (%) (Auto) 0 0-10 % Neutrophils # (Auto) 6.1 1.8-7.8 X 10^3 Lymphocytes # (Auto) 1.9 1.0-4.0 X 10^3 Monocytes # (Auto) 0.6 0.0-1.0 X 10^3 Eosinophils # (Auto) 0.2 0.0-0.3 10^3/uL Basophils # (Auto) 0.0 0.0-0.1 10^3/uL Sodium Level 138 135-145 MMOL/L Potassium Level 3.4 L 3.6-5.0 MMOL/L Chloride Level 100 98-107 MMOL/L Carbon Dioxide Level 22 21-32 MMOL/L Anion Gap 16 H 5-14 MMOL/L Blood Urea Nitrogen 24 H 7-18 MG/DL Creatinine 1.00 0.60-1.30 MG/DL Estimat Glomerular Filtration Rate 57 BUN/Creatinine Ratio 24 Glucose Level 103 70-105 MG/DL Calcium Level 9.0 8.5-10.1 MG/DL Corrected Calcium 9.8 8.5-10.1 MG/DL Total Bilirubin 0.1 0.1-1.0 MG/DL Aspartate Amino Transf (AST/SGOT) 12 5-34 U/L Alanine Aminotransferase (ALT/SGPT) 6 0-55 U/L Alkaline Phosphatase 81 40-136 U/L Total Protein 6.2 L 6.4-8.2 GM/DL Albumin 3.0 L 3.2-4.5 GM/DL My Orders Orders - EBONIE TABARES Cbc With Automated Diff (04/22/20 08:26) Comprehensive Metabolic Panel (04/22/20 08:26) Ed Iv/Invasive Line Start (04/22/20 08:36) Ns Iv 500 Ml (Sodium Chloride 0.9%) (04/22/20 08:36) Iohexol Injection (Omnipaque 350 Mg/Ml 1 (04/22/20 09:15) Received Contrast (Hold Metformin- Contr (04/22/20 09:15) Ct Chest Wo (04/22/20 08:50) Ondansetron Injection (Zofran Injectio (04/22/20 12:45) Promethazine Injection (Phenergan Injec (04/22/20 13:00) Ng/Feeding Tube Insertertion (04/22/20 12:54) Ed Iv/Invasive Line Start (04/22/20 12:58) Ns (Ivpb) (Sodium Chloride 0.9%) (04/22/20 12:58) Ns (Ivpb) (Sodium Chloride 0.9%) (04/22/20 12:56) Medications Given in ED Current Medications Medications Dose Ordered Sig/Toni Route Start Time Stop Time Status Last Admin Dose Admin Iohexol 100 ml ONCE ONCE IV 04/22/20 09:15 04/22/20 09:20 DC 04/22/20 09:29 100 ML Ondansetron HCl 8 mg ONCE ONCE IVP 04/22/20 12:45 04/22/20 12:46 DC 04/22/20 12:38 8 MG Promethazine HCl 25 mg ONCE ONCE IVP 04/22/20 13:00 04/22/20 13:01 DC 04/22/20 13:04 25 MG Sodium Chloride 250 ml @ 0 mls/hr Q0M ONCE IV 04/22/20 12:58 04/22/20 12:59 DC 04/22/20 13:04 250 MLS/HR Sodium Chloride 500 ml @ 0 mls/hr Q0M ONCE IV 04/22/20 08:36 04/22/20 08:37 DC 04/22/20 08:48 500 MLS/HR Vital Signs/I&O 04/22/20 07:50 Temp 36.0 Pulse 100 B/P (MAP) 112/72 (85) Pulse Ox 18 O2 Delivery Nasal Cannula O2 Flow Rate 2.00 Progress Progress Note #1: Time: 08:29 Progress Note Patient's not having any respiratory distress but she is having tachycardia. Plan to get a plain film and some basic labs with concern for fistula formation, empyema, etc. She is afebrile and has aseptic vital signs other than a hernia 110. We'll give her 500 mL of normal saline. She is on her baseline oxygen use. We did attempt to pass a 14 Telugu lubricated Benjamin catheter unsuccessfully beyond about 6 cm. Progress Note #2: Time: 08:49 Progress Note Spoke with Felice pierre and after he spoke to Dr. Escobar, CT surgery who did the original procedure he felt that it was probably not necessary to have esophagostomy tube anymore. He recommended a CT of the chest with oral contrast and cloud the images to [facility] for his review. Progress Note #3: Time: 11:[address] and asked radiology to cloud imaging up to [facility]. Progress Note #4: Time: 13:15 Progress Note Discussed findings with patient and she is agreeable to go to [facility]. She would like some extra antinausea medication in addition to the Zofran so he ordered 25 mg of Phenergan to be ran in over 250 cc of fluid. Progress Note #5: Time: 13:23 Progress Note 2 attempts were made to pass an NG tube unsuccessfully. Patient could not breathe through either nostril when the other was occluded. She did have a little epistaxis on the left nostril anteriorly. We decided to abandon the efforts as it was making her gagging and choking worse thereby increasing her risk of aspiration. Oxymetazoline was applied to her bilateral nostrils. Diagnostic Imaging Diagonstic Imaging: CT Plain Films/CT/US/NM/MRI: chest Comments [facility], [place] NAME: [facility] REC#: [id number] PT STATUS: REG ER : 1960 PHYSICIAN: EBONIE TABARES MD ADMIT DATE: 04/22/20/ER Draft Date of Exam:04/22/20 CT CHEST WO PROCEDURE: CT chest without contrast. TECHNIQUE: Multiple contiguous axial images were obtained through the chest without the use of intravenous contrast. Auto Exposure Controls were utilized during the CT exam to meet ALARA standards for radiation dose reduction. INDICATION: Esophagostomy tube displacement. This study is performed for further evaluation. COMPARISON: Correlation is made with the CT chest study from 04/29/2019. FINDINGS: The patient's left esophagostomy tube seen on the previous CT chest is no longer visualized and has apparently been removed. The patient did ingest a small amount of oral Omnipaque 350 contrast. Contrast is seen within the esophagus. There is trace high density in the medial aspect of the esophagostomy tract. There were punctate densities on the prior CT but the degree of density on today's study appears to be slightly greater and the possibility of minimal ingested contrast within the medial esophagoscopy tube tract cannot be entirely excluded. There is a minimal gas and fluid collection along the left chest wall near the tube entry point measuring 18 mm. Erosive changes within the adjacent rib are again noted. The left lower lobe and lingula again demonstrate some areas of scarring or subsegmental atelectasis. The right lung is clear. There is no pneumothorax identified. No definite pericardial or pleural fluid is detected. IMPRESSION: The previously noted left-sided esophagostomy tube has been pulled. There is questionable trace extraluminal contrast along the medial aspect of the esophagostomy tube tract. No gross extravasation is seen. There is also a very small gas and fluid collection along the left chest wall at the previous tube entry site. The remainder of the study appears to be stable. Dictated on workstation # [id number] Dict: 04/22/20 0959 Trans: 04/22/20 1020 [id number] Interpreted by: FAIZA KEE MD Electronically signed by: Reviewed: Reviewed by Me Consults : Consulting Physician: TAI SANCHEZ MD Consults Notes Discussed the case with general surgery and he has non destructive testing supervisor with esophagoscopy me to placement by endoscopy. He would recommend sending the patient somewhere with GI who is familiar with this procedure or a thoracic surgeon. He would recommend going to the place where she had all of her wharton rgeries. He does recall the patient having a hiatal hernia repair and on revision she had nonviable tissue and so ended up with a blind esophagus, esophagostomy tube, gastrostomy tube and a jejunostomy tube. The surgeon also recommended that these have frequent palpitations with blockage and fistulas area Departure Impression Primary Impression: Esophagostomy complications Disposition: 02 XFER SHT-TRM HOSP Condition: Stable Transfer Transfer Reason: Exceeds level of care Transfer Progress Notes 0825: Discussed the case with the triage nurse at [facility]. Charles will call us back with an accepting physician. 1300: Dr. Escobar, cardiac arrest surgery would like us to place an NG tube and he accepts the patient to do a decompressive endoscopy. He is to talk to the patient about appropriate surgical intervention. He is concerned about her risk of aspiration related to the distal esophageal pouch that has formed. Triage nurseFelice will call us back with a room number. Transfer Facility: [facility] Method of Transfer: EMS Departure-Patient Inst. Referrals: CHIQUITA RICH MD (PCP/Family) Primary Care Physician EBONIE TABARES Apr 22, 2020 08:05
--- NOTE | 2020-04-22 08:19 | NUR ---
UNABLE TO PLACE PEG TUBE BY DR TABARES.
[2020-04-22] MEDS ORDERED: NS IV 500 ML 500 ML IV ONE (08:36)
[2020-04-22 08:51] LABS: BASOPHILS % (AUTO) 0 % (0-10); EOSINOPHILS # (AUTO) 0.2 10^3/uL (0.0-0.3); EOSINOPHILS % (AUTO) 2 % (0-10); HEMATOCRIT 28 % (35-52); HEMOGLOBIN 9.2 G/DL (11.5-16.0); LYMPHOCYTES # (AUTO) 1.9 X 10^3 (1.0-4.0); LYMPHOCYTES % (AUTO) 22 % (12-44); MEAN CORPUSCULAR HEMOGLOBIN 34 PG (25-34); MEAN CORPUSCULAR HGB CONC 33 G/DL (32-36); MEAN CORPUSCULAR VOLUME 104 FL (80-99); MEAN PLATELET VOLUME 8.1 FL (7.4-10.4); MONOCYTES # (AUTO) 0.6 X 10^3 (0.0-1.0); MONOCYTES % (AUTO) 7 % (0-12); NEUTROPHILS # (AUTO) 6.1 X 10^3 (1.8-7.8); NEUTROPHILS % (AUTO) 70 % (42-75); PLATELET COUNT 342 10^3/uL (130-400); RED CELL DISTRIBUTION WIDTH 11.8 % (10.0-14.5); WHITE BLOOD COUNT 8.7 10^3/uL (4.3-11.0)
--- NOTE | 2020-04-22 08:56 | NUR ---
DR WONG TO ROOM TO TALK WITH PATIENT ABOUT [facility] WHATS TO DO.
--- NOTE | 2020-04-22 09:06 | NUR ---
TO CT PER CART.
[2020-04-22 09:12] LABS: BILIRUBIN,TOTAL 0.1 MG/DL (0.1-1.0); POTASSIUM 3.4 MMOL/L (3.6-5.0); TOTAL PROTEIN 6.2 GM/DL (6.4-8.2)
[2020-04-22] MEDS ORDERED: IOHEXOL 350 MG/ML 100 ML (OMNIPAQUE 350) VIAL IV ONE (09:15)
[2020-04-22] MEDS ORDERED: HOLD METFORMIN - RECEIVED CONTRAST 20 ML VIAL IV SCH (09:15)
--- NOTE | 2020-04-22 09:41 | NUR ---
RETURN FROM CT NO CHANGE PATIENT IS AWARE THAT WE ARE WATING FOR CT RESULTS . Addendum: 04/22/20 at 0943 by PMCCLURE FLUIDS CON'T TO INFUSE.
--- NOTE | 2020-04-22 10:21 | Diagnostic Imaging Report ---
PROCEDURE: CT chest without contrast. TECHNIQUE: Multiple contiguous axial images were obtained through the chest without the use of intravenous contrast. Auto Exposure Controls were utilized during the CT exam to meet ALARA standards for radiation dose reduction. INDICATION: Esophagostomy tube displacement. This study is performed for further evaluation. COMPARISON: Correlation is made with the CT chest study from 04/29/2019. FINDINGS: The patient's left esophagostomy tube seen on the previous CT chest is no longer visualized and has apparently been removed. The patient did ingest a small amount of oral Omnipaque 350 contrast. Contrast is seen within the esophagus. There is trace high density in the medial aspect of the esophagostomy tract. There were punctate densities on the prior CT but the degree of density on today's study appears to be slightly greater and the possibility of minimal ingested contrast within the medial esophagoscopy tube tract cannot be entirely excluded. There is a minimal gas and fluid collection along the left chest wall near the tube entry point measuring 18 mm. Erosive changes within the adjacent rib are again noted. The left lower lobe and lingula again demonstrate some areas of scarring or subsegmental atelectasis. The right lung is clear. There is no pneumothorax identified. No definite pericardial or pleural fluid is detected. IMPRESSION: The previously noted left-sided esophagostomy tube has been pulled. There is questionable trace extraluminal contrast along the medial aspect of the esophagostomy tube tract. No gross extravasation is seen. There is also a very small gas and fluid collection along the left chest wall at the previous tube entry site. The remainder of the study appears to be stable. Dictated by: Dictated on workstation # [id number]
--- NOTE | 2020-04-22 12:10 | NUR ---
CALLED TO ROOM PATIENT WANTING TO KNOW ABOUT [facility] INFORMED [facility] HAS THE CT IMAGES AND WAITNG BANQUET CHEF FROM THEM.
--- NOTE | 2020-04-22 12:14 | NUR ---
PATIENT INFORMED STAFF THAT IT TIME FOR PAIN MEDS AND ANXIETY DAUGHTER REMAINS OUTSIDE WILL BRING MEDS TO DOOR SO THEY CAN BE GIVEN PATIENT REPORTS SHE IS NEEDS TO EAT EXPLAINED THAT NEEDS TO REMAIN NPO TILL WE HEAR FROM [facility].
--- NOTE | 2020-04-22 12:38 | NUR ---
MEET DAUGHTER AT ER DOOR HOME MEDS GIVEN HYDROCODONE 7.5 MG PUT DOWN FEEDING TUVE AND FLUSED WITH WATER ATIVAN AND PROCHOLRPERAZIPNE CRUSHED AND PLACED IN WATED AND PLACED DOWN TUBE. PATENT BECOMING C/O NAUSEA BECAUSE SHE NEEDS TO EAT ZPFRAN ORDERED.
[2020-04-22] MEDS ORDERED: ONDANSETRON 4 MG/2 ML (SDV) Z0FRAN IVP ONE (12:45)
[2020-04-22] MEDS ORDERED: NS (IVPB) 250 ML ONE (12:56)
[2020-04-22] MEDS ORDERED: NS (IVPB) 250 ML IV ONE (12:58)
[2020-04-22] MEDS ORDERED: PROMETHAZINE INJ 25 MG/ML (PHENERGAN) AMP IVP ONE (13:00)
--- NOTE | 2020-04-22 13:09 | NUR ---
PHONE ,W/C AND O2 TANK GIVEN TO DAUGHTER MÓNICA ARITA PER PATIENT REQUEST. ALONG WITH HOME MEDS OF HYDROCODONE ,ATIVAN, AND NAUSEA MED
--- NOTE | 2020-04-22 13:14 | NUR ---
[facility] HAS ACCEPTED WILL CALL BACK WITH ROOM
--- NOTE | 2020-04-22 13:22 | NUR ---
[facility] REQUEST THAT NG BE PLACED TO THE LEVEL OF XIPHOID PROCESS TUBE UNABE TO BE PASSED BY DR TABARES.
--- NOTE | 2020-04-22 13:31 | NUR ---
SHIFT CAPTAIN RICK NOTIFOED OF TRANSFR TO [facility]
--- NOTE | 2020-04-22 13:45 | NUR ---
EMS CALLED FOR TRANSFER
--- NOTE | 2020-04-22 14:17 | NUR ---
REPORT TO [facility]
--- NOTE | 2020-04-22 14:44 | NUR ---
EMS HERE FOR TRANSFER
[2020-04-22 14:55] VITALS: BP 140/82
[2020-04-22] MEDS ORDERED: OXYMETAZOLINE (AFRIN) 0.05% NA 30 ML BTL SCH (21:00)
== END 2020-04-22 14:44 | disposition short-term general hospital (02) ==
LOC: EDUNIT# 07:44 → ER 07:46
DX: K94.33 Esophagostomy malfunction (principal); Z88.5 Allergy status to narcotic agent; Z90.710 Acquired absence of both cervix and uterus; Z82.49 Family history of ischemic heart disease and other diseases of the circulatory system
CPT/HCPCS: 36415; 71250; 80053; 85025; 96361; 96374; 96375

== ENCOUNTER 2020-12-07 08:40 | Emergency (ER) | payer MEDICAID ==
[~2020-12-07] VITALS: Ht 149.8 cm; Wt 47.2 kg
[~2020-12-07 08:40] MED LIST changes: +AMLO-250 PO; -AMLO5TAB9 PO; -CIPR500T4 PO; +CIPR500T5 PO; -POLY17PO31 PO; +POLY17PO54 PO
--- NOTE | 2020-12-07 09:25 | ED General ---
General Chief Complaint: Catheter/Drain/Tube Problems Stated Complaint: FEEDING TUBE REINSERT Nursing Triage Note: TO ROOM PER W/C REPORTS HER FEEDING TUBE CAME OUT AT 630 TODAY. Nursing Sepsis Screen: No Definite Risk Source of Information: Patient, Family Exam Limitations: No Limitations History of Present Illness Date Seen by Provider: Dec 07, 2020 Time Seen by Provider: 09:08 Initial Comments Patient is a 60-year-old female who presents to the emergency department today with a chief complaint of dislodged feeding tube. Patient states that the tube fell out at around 7 30-7 45 this morning. She is not complaining of any pain related to the dislodgment. No recent fevers chills. No abdominal pain that is out of proportion to her previous. Patient is asking for a pain pill. She is not had any nausea or vomiting. All other review of systems reviewed and negative except as stated. Timing/Duration: 1 Hour Associated Systoms: Denies Symptoms Allergies and Home Medications Allergies Coded Allergies: codeine (Unverified Adverse Reaction, Unknown, 09/03/18) severe stomach pain Home Medications Fentanyl 1 Each Patch.td72, 25 MCG TD Q72H Prescribed by: BISHOP VAN on 11/25/19 1008 Hydrocodone/Acetaminophen 118 Ml Solution, 20 ML PEG Q6H PRN for PAIN-MODERATE Prescribed by: BISHOP VAN on 11/25/19 1008 Lorazepam 0.5 Mg Tablet, 0.5 MG SL Q6H PRN for AGITATION Prescribed by: BISHOP VAN on 11/25/19 1008 Melatonin 3 Mg Tablet, 3 MG PO HS PRN for SLEEP, (Reported) Metoclopramide HCl 10 Mg Tablet, 10 MG PO QIDPCHS PRN for NAUSEA/VOMITING-3RD LINE, (Reported) Prochlorperazine Maleate 10 Mg Tablet, 10 MG PO Q4H PRN for NAUSEA/VOMITING-4TH LINE, (Reported) Promethazine HCl 25 Mg Tablet, 25 MG PO Q3HR PRN for NAUSEA/VOMITING Prescribed by: ROHAN MONTES on 11/25/19 1506 Patient Home Medication List Home Medication List Reviewed: Yes Review of Systems Review of Systems Constitutional: see HPI Respiratory: no symptoms reported Cardiovascular: no symptoms reported Gastrointestinal: no symptoms reported, other (Dislodged feeding tube) Genitourinary: no symptoms reported All Other Systems Reviewed Negative Unless Noted: Yes Past Bhlethh-Xktklr-Hrgmfz Hx Patient Social History Alcohol Use: Denies Use Smoking Status: Never a Smoker 2nd Hand Smoke Exposure: No Recent Infectious Disease Expo: No Recent Hopitalizations: No Immunizations Up To Date Tetanus Booster (TDap): Unknown Date of Pneumonia Vaccine: Sep 18, 2019 Date of Influenza Vaccine: Nov 15, 2019 Seasonal Allergies Seasonal Allergies: Yes Past Medical History Surgeries: Yes (GASTRIC) Abdominal, Gallbladder, Hysterectomy Respiratory: Yes Asthma Currently Using CPAP: No Currently Using BIPAP: No Cardiac: Yes Hypertension Neurological: No 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 Disorders: No 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 Sexually Transmitted Disease: No HIV/AIDS: No Genitourinary: No Gastrointestinal: Yes (Blind esophagus, G-tube, J-tube) Gastroesophageal Reflux, Hiatal Hernia Musculoskeletal: Yes Chronic Back Pain Endocrine: No HEENT: No Loss of Vision: Bilateral Hearing Impairment: Denies Cancer: No Psychosocial: No Integumentary: No Blood Disorders: No Adverse Reaction/Blood Tranf: No Family Medical History Hypertension 19 FATHER G8 SISTER No Pertinent Family Hx Physical Exam Vital Signs Vital Signs - First Documented 12/07/20 08:54 Temp 36.6 Pulse 115 Resp 18 B/P (MAP) 144/80 (101) Pulse Ox 95 O2 Delivery Room Air Capillary Refill : Less Than 3 Seconds Height, Weight, BMI Height: 4'11.00" Weight: 98lbs. 14.4oz. [id number]; 21.00 BMI Method:Stated General Appearance: No Apparent Distress, WD/WN Respiratory: No Accessory Muscle Use, No Respiratory Distress Gastrointestinal: Soft, Tenderness (Diffuse mild tenderness), Other (PEG tube site at left lower quadrant shows erythema around the skin, stoma appears clean.) Extremity: Normal Range of Motion Neurologic/Psychiatric: Alert, Oriented x3, No Motor/Sensory Deficits, Normal Mood/Affect Procedures/Interventions Patient Education: Explained Benefits, Explained Risks, Pt. Ack. Understanding Breath Sounds per Auscultation: Crackles, Wheezes Heart Sounds per Auscultation: Regular Airway Exam: Mouth opens >2 fingers, Neck Full Range of Motion, Visulation of Uvula Sedation Adminstration Time: 1803 Re-examination Time: 1845 Progress/Results/Core Measures Suspected Sepsis Recent Fever Within 48 Hours: No Infection Criteria Present: None New/Unexplained Altered Menta: No Sepsis Screen: No Definite Risk SIRS Temperature: Pulse: 115 Respiratory Rate: 18 Blood Pressure 144 /80 Mean: 101 Results/Orders My Orders Orders - LAMINE DELUNA MD Oxycodone/Acet 10/325mg Tablet (Percocet (12/07/20 09:30) Peg Tube Check (12/07/20 09:16) Diatrizoate Meglum/Sodium 37% (Gastrogra (12/07/20 09:45) Medications Given in ED Current Medications Medications Dose Ordered Sig/Toni Route Start Time Stop Time Status Last Admin Dose Admin Diatrizoate Meglum/ Diatrizoate Sod 120 ml ONCE ONCE NG 12/07/20 09:45 12/07/20 09:46 12/07/20 09:39 30 ML Vital Signs/I&O 12/07/20 08:54 Temp 36.6 Pulse 115 Resp 18 B/P (MAP) 144/80 (101) Pulse Ox 95 O2 Delivery Room Air Capillary Refill : Less Than 3 Seconds Blood Pressure Mean: 101 Progress Note : Time: 09:23 Progress Note Size 18 Taiwanese PEG tube replaced to the stoma of the PEG tube site in the left lower quadrant. No complications. PEG tube went in easily. Placement will be confirmed by x-ray. 0944 Peg tube appears to be adequately positioned by Xray Departure Impression Primary Impression: Irritation around percutaneous endoscopic gastrostomy (PEG) tube site Additional Impression: PEG tube malfunction Disposition: 01 HOME, SELF-CARE Condition: Stable Departure-Patient Inst. Decision time for Depature: 09:25 Referrals: CHIQUITA RICH MD (PCP/Family) Primary Care Physician Patient Instructions: How to Care for Your PEG Tube Add. Discharge Instructions: Keep the PEG tube site clean dry and covered. Follow-up with your primary care doctor and your specialists as scheduled. Return to the emergency department for any new, concerning or emergent complaints. LAMINE DELUNA MD Dec 07, 2020 09:25
[2020-12-07] MEDS ORDERED: oxyCODONE/APAP 10/325MG (PERCOCET 10) TABLET PO ONE (09:30)
[2020-12-07] MEDS ORDERED: DIATRIZOATE MEGLUM/SODIUM 37% 120 ML (GASTROGRAFIN) NG ONE (09:45)
--- NOTE | 2020-12-07 09:57 | Diagnostic Imaging Report ---
INDICATION: PEG tube replacement. DETAILS OF THE PROCEDURE: The preliminary radiograph of the abdomen does show surgical clips in the right upper quadrant. There is a PEG tube overlying the left abdomen. 30 cc of Gastrografin contrast was injected and repeat radiographs of the abdomen were obtained. There appears to be contrast within small bowel loops in the left abdomen. No extravasation of contrast is seen. IMPRESSION: Satisfactory jejunostomy tube replacement. Dictated by: Dictated on workstation # [id number]
[2020-12-07 10:02] VITALS: BP 135/83
== END 2020-12-07 10:02 | disposition home or self-care (01) ==
LOC: EDUNIT# 08:40 → ER 08:42
DX: K94.23 Gastrostomy malfunction (principal); J45.909 Unspecified asthma, uncomplicated; I10 Essential (primary) hypertension; K21.9 Gastro-esophageal reflux disease without esophagitis; Z88.5 Allergy status to narcotic agent
CPT/HCPCS: 43762; 49465

== ENCOUNTER 2021-05-21 13:56 | Emergency (ER) | payer MEDICAID ==
[~2021-05-21] VITALS: Ht 149.8 cm; Wt 51.3 kg
[2021-05-21] MEDS ORDERED: SULF473O9 PO (15:41)
--- NOTE | 2021-05-21 15:42 | ED GI ---
General Chief Complaint: Catheter/Drain/Tube Problems Stated Complaint: PEG TUBE FELL OUT Nursing Triage Note: Pt arrival to ER with complaint of dislodged tube in abdomen x20 minutes. Pt states that this is a back up tube for the other tube that is in the abdomen. Pt is a poor historian and states that Dr. Alie long did the surgery. Pt has some discomfort around the site and states that the pain started last week. PT states that tubes are in place after complications from several hernia repair surgeries. Source of Information: Patient, Family Exam Limitations: No Limitations History of Present Illness Date Seen by Provider: May 21, 2021 Time Seen by Provider: 15:00 Initial Comments Patient presents to the ER with 2 abdominal feeding tubes, the superior 1 of which has fallen out. She is requesting that it be replaced. She describes this tube as a "just in case" tube. She does not use it for anything at this time. She uses the lower tube for feeds. 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 She has a d raining stoma on the chest to manage esophageal secretions. There is a significant amount of granulation tissue accumulated around the stoma of the upper feeding tube and a significant amount of odor and erythema to the surrounding skin. Allergies and Home Medications Allergies Coded Allergies: codeine (Unverified Adverse Reaction, Unknown, 09/03/18) severe stomach pain Patient Home Medication List Home Medication List Reviewed: Yes Fentanyl (Fentanyl Patch 25 MCG) 1 Each Patch.td72, 25 MCG TD Q72H Prescribed by: BISHOP VAN on 11/25/19 1008 Hydrocodone/Acetaminophen (Hydrocodone-Acetamn 7.5-325/15) 118 Ml Solution, 20 ML PEG Q6H PRN for PAIN-MODERATE Prescribed by: BISHOP VAN on 11/25/19 1008 Lorazepam (Ativan) 0.5 Mg Tablet, 0.5 MG SL Q6H PRN for AGITATION Prescribed by: BISHOP VAN on 11/25/19 1008 Melatonin (Melatonin) 3 Mg Tablet, 3 MG PO HS PRN for SLEEP, (Reported) Entered as Reported by: ROSANA GUILLEN on 04/30/19 1000 Metoclopramide HCl (Reglan) 10 Mg Tablet, 10 MG PO QIDPCHS PRN for NAUSEA/VOMITING-3RD LINE, (Reported) Entered as Reported by: CHRISTIE MEANS on 11/21/19 1518 Prochlorperazine Maleate (Prochlorperazine Maleate) 10 Mg Tablet, 10 MG PO Q4H PRN for NAUSEA/VOMITING-4TH LINE, (Reported) Entered as Reported by: CHRISTIE MEANS on 11/21/19 1518 Promethazine HCl (Promethazine Tablet) 25 Mg Tablet, 25 MG PO Q3HR PRN for NAUSEA/VOMITING Prescribed by: ROHAN MONTES on 11/25/19 1506 Sulfamethoxazole/Trimethoprim (Sulfamethoxazole-Tmp Susp 200MG/40MG/5ML) 473 Ml Oral.susp, 20 ML PO BID Prescribed by: BRAYDON LYLES on 05/21/21 1541 Review of Systems Review of Systems Constitutional: no symptoms reported EENTM: No Symptoms Reported Respiratory: No Symptoms Reported Cardiovascular: No Symptoms Reported Gastrointestinal: See HPI Genitourinary: No Symptoms Reported Musculoskeletal: no symptoms reported Skin: see HPI Psychiatric/Neurological: No Symptoms Reported Endocrine: No Symptoms Reported Hematologic/Lymphatic: No Symptoms Reported Past Kwqhnwq-Ogxtgt-Vtpbad Hx Patient Social History Tobacco Use?: No Use of E-Cig and/or Vaping dev: No Substance use?: No Alcohol Use?: No Pt feels they are or have been: No Immunizations Up To Date Tetanus Booster (TDap): Unknown Influenza Vaccine Up-to-Date: No; Not Current Seasonal Allergies Seasonal Allergies: Yes Past Medical History Surgeries: Yes (GASTRIC) Abdominal (Fundoplication resulting in esophageal rupture. 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 Sexually Transmitted Disease: No HIV/AIDS: No Genitourinary: No Gastrointestinal: Yes (Blind esophagus, G-tube, J-tube, esophageal rupture) Gastroesophageal Reflux, Hiatal Hernia Musculoskeletal: Yes Chronic Back Pain Endocrine: No HEENT: No Loss of Vision: Bilateral Hearing Impairment: Denies Cancer: No Psychosocial: No Integumentary: No Blood Disorders: No Adverse Reaction/Blood Tranf: No Family Medical History Hypertension 19 FATHER G8 SISTER No Pertinent Family Hx Physical Exam Vital Signs Vital Signs - First Documented 05/21/21 14:02 Temp 36.9 Pulse 122 Resp 18 B/P (MAP) 179/96 (123) Pulse Ox 94 O2 Delivery Room Air Capillary Refill : Less Than 3 Seconds Height/Weight/BMI Height: 4'11.00" Weight: 98lbs. 14.4oz. 44.990539zc; 22.00 BMI Method:Stated General Appearance: WD/WN, no apparent distress HEENT: normal ENT inspection Neck: normal inspection Respiratory: lungs clear, normal breath sounds, no respiratory distress Cardiovascular: regular rate, rhythm, no edema, no murmur Gastrointestinal: non tender, soft; No distended Extremities: normal inspection Neurologic/Psychiatric: no motor/sensory deficits, alert, normal mood/affect, oriented x 3 Skin: other (Granulation tissue accumulation around the upper feeding tube stoma. Erythema, odor, and moisture of the granulation tissue and surrounding skin. Intact stoma for the esophagus. Lower feeding tube has gastric drainage seeping from the edges but otherwise normal.) Procedures/Interventions Patient Education: Explained Benefits, Explained Risks, Pt. Ack. Understanding Breath Sounds per Auscultation: Crackles, Wheezes Heart Sounds per Auscultation: Regular Airway Exam: Mouth opens >2 fingers, Neck Full Range of Motion, Visulation of Uvula Sedation Adminstration Time: 1803 Re-examination Time: 1845 Progress/Results/Core Measures Results/Orders Vital Signs/I&O 05/21/21 05/21/21 14:02 15:53 Temp 36.9 Pulse 122 101 Resp 18 20 B/P (MAP) 179/96 (123) 147/83 Pulse Ox 94 96 O2 Delivery Room Air Room Air Blood Pressure Mean: 123 Progress Progress Note : Progress Note Betadine was applied to the stoma for the tube. After lubricating a new 18 F tube was easily inserted. However, partial inflation of the tube caused her significant discomfort. I discussed the situation with Dr. Escobar at [facility]. He reports the upper tube does not have a luminal termination. This was a tract that originally ran from the distal esophagus through the pleura. It is currently not used for anything but remains there to keep the tract open. He explained that it will not support a fully inflated bulb. He advised leaving the tube in place without inflation of the bulb. The tube is not completely necessary but is simply there is a placeholder should distract be needed for uti lization later. He agrees with starting antibiotics and would like to see the patient in his clinic next . There was erythema, odor, and a large formation of granulation tissue at the upper stoma site. Associated cellulitis and/or candidiasis was suspected. Patient was advised to resume using her antifungal powder and to start antibiotics as prescribed. Departure Impression Primary Impression: G-tube site cellulitis Additional Impression: Problem with gastrostomy tube Disposition: HOME, SELF-CARE Condition: Stable Departure-Patient Inst. Decision time for Depature: 15:30 Referrals: CHIQUITA RICH MD (PCP/Family) Primary Care Physician Patient Instructions: Cellulitis (Skin Infection), Adult (DC) Add. Discharge Instructions: Follow-up with Dr. Gonzalez Next . Call for an appointment time on Monday. In the meantime leave your upper tube in place if at all possible. Start the antibiotic as prescribed and continue until you see Dr. Strange. You should also use the antifungal powder once or twice a day on your irritated skin. Call with questions or concerns. Return to the ER if you have worsening symptoms. All discharge instructions reviewed with patient and/or family. Voiced understanding. Scripts Sulfamethoxazole/Trimethoprim (Sulfamethoxazole-Tmp Susp 200MG/40MG/5ML) 473 Ml Oral.susp 20 ML PO BID, #280 ML Prov: BRAYDON PEREZ MD 05/21/21 Copy Copies To 1: CHIQUITA RICH MD, JOSHUA T MD May 21, 2021 15:42
[2021-05-21 15:53] VITALS: BP 147/83
== END 2021-05-21 15:46 | disposition home or self-care (01) ==
LOC: EDUNIT# 13:56 → ER 13:58
DX: L03.311 Cellulitis of abdominal wall (principal); K94.20 Gastrostomy complication, unspecified; J45.909 Unspecified asthma, uncomplicated; I10 Essential (primary) hypertension; G89.29 Other chronic pain; M54.9 Dorsalgia, unspecified; Z79.891 Long term (current) use of opiate analgesic; Z79.899 Other long term (current) drug therapy
CPT/HCPCS: 99281

== ENCOUNTER 2021-05-21 17:11 | Emergency (ER) | payer MEDICAID ==
[~2021-05-21] VITALS: Ht 149.8 cm; Wt 51.3 kg
[~2021-05-21 17:11] MED LIST changes: +SULF473O9 PO
[2021-05-21 17:53] VITALS: BP 147/90
--- NOTE | 2021-05-21 18:09 | ED Suture Removal/Wound Check ---
Suture/Wound Re-check General Appearance: WD/WN, no apparent distress Skin Exam: normal color, warm/dry Physical Exam Vital Signs Vital Signs - First Documented 05/21/21 17:53 Pulse 100 Resp 16 B/P (MAP) 147/90 (109) Pulse Ox 94 O2 Delivery Room Air Capillary Refill : Less Than 3 Seconds Departure Impression Primary Impression: G-tube site cellulitis Additional Impression: Problem with gastrostomy tube Disposition: HOME, SELF-CARE Condition: Improved Departure-Patient Inst. Decision time for Depature: 18:08 Referrals: CHIQUITA RICH MD (PCP/Family) Primary Care Physician Patient Instructions: Cellulitis (Skin Infection), Adult ED Add. Discharge Instructions: For PEG tube in the tract if possible. If it falls out, you may gently try to reinsert it as long as it is clean. If you are unable to reinsert it, leave it out and receive further instructions at your follow-up appointment. Use your antibiotics and the antifungal powder as prescribed. Call with questions or concerns. All discharge instructions reviewed with patient and/or family. Voiced understanding. BRAYDON PEREZ MD May 21, 2021 18:09
== END 2021-05-21 18:22 | disposition home or self-care (01) ==
LOC: EDUNIT# 17:11 → ER 17:12
DX: K94.20 Gastrostomy complication, unspecified (principal)
CPT/HCPCS: 99281

== ENCOUNTER 2021-06-24 02:24 | Emergency (ER) | payer MEDICAID ==
[~2021-06-24] VITALS: Ht 149.8 cm; Wt 60.0 kg
--- NOTE | 2021-06-24 03:13 | ED GI ---
General Chief Complaint: Catheter/Drain/Tube Problems Stated Complaint: FEEDING TUBE FELL OUT Nursing Triage Note: Pt arrival to ER via wheelchair with complaint of Dislodged Feeding Tube. Pt states that it became dislodged and fell out around 0200. Pt has no other complaints. Source of Information: Patient Exam Limitations: No Limitations History of Present Illness Date Seen by Provider: Jun 24, 2021 Time Seen by Provider: 02:50 Initial Comments This 60-year-old woman presents to the emergency room with a dislodged PEG tube. She denies any other complications. She has a complicated history documented well in prior visits. Allergies and Home Medications Allergies Coded Allergies: codeine (Unverified Adverse Reaction, Unknown, 09/03/18) severe stomach pain Patient Home Medication List Home Medication List Reviewed: Yes Fentanyl (Fentanyl Patch 25 MCG) 1 Each Patch.td72, 25 MCG TD Q72H Prescribed by: BISHOP VAN on 11/25/19 1008 Hydrocodone/Acetaminophen (Hydrocodone-Acetamn 7.5-325/15) 118 Ml Solution, 20 ML PEG Q6H PRN for PAIN-MODERATE Prescribed by: BISHOP VAN on 11/25/19 1008 Lorazepam (Ativan) 0.5 Mg Tablet, 0.5 MG SL Q6H PRN for AGITATION Prescribed by: BISHOP VAN on 11/25/19 1008 Melatonin (Melatonin) 3 Mg Tablet, 3 MG PO HS PRN for SLEEP, (Reported) Entered as Reported by: ROSANA GUILLEN on 04/30/19 1000 Metoclopramide HCl (Reglan) 10 Mg Tablet, 10 MG PO QIDPCHS PRN for NAUSEA/VOMITING-3RD LINE, (Reported) Entered as Reported by: CHRISTIE MEANS on 11/21/19 1518 Prochlorperazine Maleate (Prochlorperazine Maleate) 10 Mg Tablet, 10 MG PO Q4H PRN for NAUSEA/VOMITING-4TH LINE, (Reported) Entered as Reported by: CHRISTIE MEANS on 11/21/19 1518 Promethazine HCl (Promethazine Tablet) 25 Mg Tablet, 25 MG PO Q3HR PRN for NAUSEA/VOMITING Prescribed by: ROHAN MONTES on 11/25/19 1506 Sulfamethoxazole/Trimethoprim (Sulfamethoxazole-Tmp Susp 200MG/40MG/5ML) 473 Ml Oral.susp, 20 ML PO BID Prescribed by: BRAYDON LYLES on 05/21/21 1541 Review of Systems Review of Systems Constitutional: no symptoms reported Gastrointestinal: See HPI Skin: no symptoms reported Past Ltzegyk-Yucorc-Dpcvaa Hx Patient Social History Tobacco Use?: No Use of E-Cig and/or Vaping dev: No Substance use?: No Alcohol Use?: No Pt feels they are or have been: No Immunizations Up To Date Tetanus Booster (TDap): Unknown Influenza Vaccine Up-to-Date: No; Not Current Seasonal Allergies Seasonal Allergies: Yes Past Medical History Surgeries: Yes (GASTRIC TUBE) Abdominal (Hiatal hernia repair with esoph rupture, venting esophagostomy and blind esophagus), Gallbladder, Hysterectomy Respiratory: Yes Asthma Currently Using CPAP: No Currently Using BIPAP: No Cardiac: Yes Hypertension Neurological: No 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 Disorders: No 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 Sexually Transmitted Disease: No HIV/AIDS: No Genitourinary: No Gastrointestinal: Yes (Blind esophagus, G-tube, J-tube) Gastroesophageal Reflux, Hiatal Hernia Musculoskeletal: Yes Chronic Back Pain Endocrine: No HEENT: No Loss of Vision: Bilateral Hearing Impairment: Denies Cancer: No Psychosocial: No Integumentary: No Blood Disorders: No Adverse Reaction/Blood Tranf: No Family Medical History Hypertension 19 FATHER G8 SISTER No Pertinent Family Hx Physical Exam Vital Signs Vital Signs - First Documented 06/24/21 02:46 Temp 36.6 Pulse 122 Resp 20 B/P (MAP) 165/95 (118) Pulse Ox 97 O2 Delivery Room Air Capillary Refill : Less Than 3 Seconds Height/Weight/BMI Height: 4'11.00" Weight: 98lbs. 14.4oz. 44.222996yr; 26.00 BMI Method:Stated General Appearance: WD/WN, no apparent distress Respiratory: lungs clear, normal breath sounds Gastrointestinal: non tender, soft, other (Ostomy open with good skin integrity) Neurologic/Psychiatric: alert, normal mood/affect, oriented x 3 Skin: normal color, warm/dry Procedures/Interventions Patient Education: Explained Benefits, Explained Risks, Pt. Ack. Understanding Breath Sounds per Auscultation: Crackles, Wheezes Heart Sounds per Auscultation: Regular Airway Exam: Mouth opens >2 fingers, Neck Full Range of Motion, Visulation of Uvula Sedation Adminstration Time: 1803 Re-examination Time: 1845 Progress/Results/Core Measures Results/Orders Vital Signs/I&O 06/24/21 06/24/21 02:46 03:24 Temp 36.6 Pulse 122 112 Resp 20 20 B/P (MAP) 165/95 (118) 159/91 Pulse Ox 97 96 O2 Delivery Room Air Room Air Blood Pressure Mean: 118 Progress Progress Note : Progress Note Betadine applied. Lubricated 18 Nepali G-tube was replaced. G-tube flushed without pain. No aspiration was achieved. Cuff adjusted and bulb inflated. Departure Impression Primary Impression: Problem with gastrostomy tube Disposition: HOME, SELF-CARE Condition: Improved Departure-Patient Inst. Decision time for Depature: 03:05 Referrals: CHIQUITA RICH MD (PCP/Family) Primary Care Physician Patient Instructions: Gastrostomy, Permanent and Temporary Add. Discharge Instructions: Use your G-tube as previously instructed. Call with questions or concerns. Return to care if you have notable complications. All discharge instructions reviewed with patient and/or family. Voiced understanding. BRAYDON PEREZ MD Jun 24, 2021 03:13
[2021-06-24 03:24] VITALS: BP 159/91
== END 2021-06-24 03:18 | disposition home or self-care (01) ==
LOC: EDUNIT# 02:24 → ER 02:26
DX: K94.23 Gastrostomy malfunction (principal); I10 Essential (primary) hypertension; J45.909 Unspecified asthma, uncomplicated; Z88.5 Allergy status to narcotic agent; Z90.710 Acquired absence of both cervix and uterus
CPT/HCPCS: 99281

== ENCOUNTER 2021-06-29 15:59 | Emergency (ER) | payer MEDICAID ==
[~2021-06-29] VITALS: Ht 150 cm; Wt 54.0 kg
[2021-06-29 16:05] VITALS: BP 133/96
--- NOTE | 2021-06-29 17:03 | ED Respiratory ---
General Chief Complaint: Catheter/Drain/Tube Problems Stated Complaint: TRACH FELL OUT Nursing Triage Note: PT STATES HER TRACH TUBE CAME OUT THIS A.M. History of Present Illness Date Seen by Provider: Jun 29, 2021 Time Seen by Provider: 16:10 Initial Comments 60-year-old female presents after her trach became dislodged. She reports coughing hard this morning and after that having difficulty with that. Her daughter attempted to reinsert it with no success. She is denying any shortness of breath. Timing/Duration: this morning Associated Symptoms: denies symptoms Allergies and Home Medications Allergies Coded Allergies: codeine (Unverified Adverse Reaction, Unknown, 09/03/18) severe stomach pain Patient Home Medication List Home Medication List Reviewed: Yes Fentanyl (Fentanyl Patch 25 MCG) 1 Each Patch.td72, 25 MCG TD Q72H Prescribed by: BISHOP VAN on 11/25/19 1008 Hydrocodone/Acetaminophen (Hydrocodone-Acetamn 7.5-325/15) 118 Ml Solution, 20 ML PEG Q6H PRN for PAIN-MODERATE Prescribed by: BISHOP VAN on 11/25/19 1008 Lorazepam (Ativan) 0.5 Mg Tablet, 0.5 MG SL Q6H PRN for AGITATION Prescribed by: BISHOP VAN on 11/25/19 1008 Melatonin (Melatonin) 3 Mg Tablet, 3 MG PO HS PRN for SLEEP, (Reported) Entered as Reported by: ROSANA GUILLEN on 04/30/19 1000 Metoclopramide HCl (Reglan) 10 Mg Tablet, 10 MG PO QIDPCHS PRN for NAUSEA/VOMITING-3RD LINE, (Reported) Entered as Reported by: CHRISTIE MEANS on 11/21/19 1518 Prochlorperazine Maleate (Prochlorperazine Maleate) 10 Mg Tablet, 10 MG PO Q4H PRN for NAUSEA/VOMITING-4TH LINE, (Reported) Entered as Reported by: CHRSITIE MEANS on 11/21/19 1518 Promethazine HCl (Promethazine Tablet) 25 Mg Tablet, 25 MG PO Q3HR PRN for NAUSEA/VOMITING Prescribed by: ROHAN MONTES on 11/25/19 1506 Sulfamethoxazole/Trimethoprim (Sulfamethoxazole-Tmp Susp 200MG/40MG/5ML) 473 Ml Oral.susp, 20 ML PO BID Prescribed by: BRAYDON LYLES on 05/21/21 1541 Review of Systems Review of Systems Constitutional: no symptoms reported, see HPI Respiratory: no symptoms reported, see HPI; No short of breath; other (neck noted to have stoma for Trach, no erythema, drainage or bleeding.) All Other Systems Reviewed Negative Unless Noted: Yes Past Oszdgcl-Hpxyrh-Joauyh Hx Patient Social History Smoking Status: Never a Smoker Substance use?: No Alcohol Use?: No Immunizations Up To Date Tetanus Booster (TDap): Unknown COVID19 Vaccine Restorative Aide: NO SHOTS Seasonal Allergies Seasonal Allergies: Yes Past Medical History Surgeries: Yes (GASTRIC TUBE) Abdominal, Gallbladder, Hysterectomy Respiratory: Yes Asthma Currently Using CPAP: No Currently Using BIPAP: No Cardiac: Yes Hypertension Neurological: No 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 Disorders: No 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 Transmitted Disease: No HIV/AIDS: No Genitourinary: No Gastrointestinal: Yes (Blind esophagus, G-tube, J-tube) Gastroesophageal Reflux, Hiatal Hernia Musculoskeletal: Yes Chronic Back Pain Endocrine: No HEENT: No Loss of Vision: Bilateral Hearing Impairment: Denies Cancer: No Psychosocial: No Integumentary: No Blood Disorders: No Adverse Reaction/Blood Tranf: No Family Medical History Reviewed Nursing Family Hx Hypertension 19 FATHER G8 SISTER No Pertinent Family Hx Physical Exam Vital Signs - First Documented 06/29/21 16:05 Temp 35.9 Pulse 114 Resp 18 B/P (MAP) 133/96 (108) Pulse Ox 95 O2 Delivery Room Air Capillary Refill : Less Than 3 Seconds Height: 4'11.00" Weight: 98lbs. 14.4oz. 44.370249go; 24.00 BMI Method:Stated General Appearance: WD/WN, no apparent distress Neck: non-tender, full range of motion, supple Respiratory: chest non-tender, lungs clear, normal breath sounds Cardiovascular: normal peripheral pulses, regular rate, rhythm Neurologic/Psychiatric: no motor/sensory deficits, alert, normal mood/affect, oriented x 3 Procedures/Interventions Patient Education: Explained Benefits, Explained Risks, Pt. Ack. Understanding Breath Sounds per Auscultation: Crackles, Wheezes Heart Sounds per Auscultation: Regular Airway Exam: Mouth opens >2 fingers, Neck Full Range of Motion, Visulation of Uvula Sedation Adminstration Time: 180 Re-examination Time: 1844 Progress/Results/Core Measures Suspected Sepsis SIRS Temperature: Pulse: 114 Respiratory Rate: 18 Blood Pressure 133 /96 Mean: 108 Results/Orders Vital Signs/I&O 06/29/21 16:05 Temp 35.9 Pulse 114 Resp 18 B/P (MAP) 133/96 (108) Pulse Ox 95 O2 Delivery Room Air Capillary Refill : Less Than 3 Seconds Blood Pressure Mean: 108 Progress Note : Progress Note Trach tube re-inserted without complications by RT. Patient denies any complaints. Departure Impression Primary Impression: Tracheostomy complication Qualified Codes: J95.09 - Other tracheostomy complication Disposition: HOME, SELF-CARE Condition: Improved Departure-Patient Inst. Decision time for Depature: 17:00 Referrals: CHIQUITA RICH MD (PCP/Family) Primary Care Physician Patient Instructions: How to Care for a Tracheostomy Add. Discharge Instructions: Follow-up with your trach surgeon at . Return to the emergency department for new, urgent healthcare needs. All discharge instructions reviewed with patient and/or family. Voiced understanding. IGOR ROBERT Jun 29, 2021 17:03
== END 2021-06-29 17:10 | disposition home or self-care (01) ==
LOC: EDUNIT# 15:59 → ER 16:01
DX: J95.09 Other tracheostomy complication (principal); J45.909 Unspecified asthma, uncomplicated; I10 Essential (primary) hypertension; G89.29 Other chronic pain; M54.9 Dorsalgia, unspecified; Z79.891 Long term (current) use of opiate analgesic
CPT/HCPCS: 99281

== ENCOUNTER 2021-07-09 20:25 | Emergency (ER) | payer MEDICAID ==
[~2021-07-09] VITALS: Ht 157.4 cm; Wt 70.0 kg
--- NOTE | 2021-07-09 20:47 | ED GI ---
General Chief Complaint: Catheter/Drain/Tube Problems Stated Complaint: FEEDING TUBE CAME OUT Source of Information: Patient Exam Limitations: No Limitations History of Present Illness Date Seen by Provider: Jul 09, 2021 Time Seen by Provider: 20:32 Initial Comments 60-year-old female G-tube dependent coming in because her G-tube fell out just prior to arrival. She was due for her 8:00 pain medication when this was noticed. The tube has been in place for many years and has a mature tract. Otherwise denying any other issues. Allergies and Home Medications Allergies Coded Allergies: codeine (Unverified Adverse Reaction, Unknown, 09/03/18) severe stomach pain Patient Home Medication List Home Medication List Reviewed: Yes Fentanyl (Fentanyl Patch 25 MCG) 1 Each Patch.td72, 25 MCG TD Q72H Prescribed by: BISHOP VAN on 11/25/19 1008 Hydrocodone/Acetaminophen (Hydrocodone-Acetamn 7.5-325/15) 118 Ml Solution, 20 ML PEG Q6H PRN for PAIN-MODERATE Prescribed by: BISHOP VAN on 11/25/19 1008 Lorazepam (Ativan) 0.5 Mg Tablet, 0.5 MG SL Q6H PRN for AGITATION Prescribed by: BISHOP VAN on 11/25/19 1008 Melatonin (Melatonin) 3 Mg Tablet, 3 MG PO HS PRN for SLEEP, (Reported) Entered as Reported by: ROSANA GUILLEN on 04/30/19 1000 Metoclopramide HCl (Reglan) 10 Mg Tablet, 10 MG PO QIDPCHS PRN for NAUSEA/VOMITING-3RD LINE, (Reported) Entered as Reported by: CHRISTIE MEANS on 11/21/19 1518 Prochlorperazine Maleate (Prochlorperazine Maleate) 10 Mg Tablet, 10 MG PO Q4H PRN for NAUSEA/VOMITING-4TH LINE, (Reported) Entered as Reported by: CHRISTIE MEANS on 11/21/19 1518 Promethazine HCl (Promethazine Tablet) 25 Mg Tablet, 25 MG PO Q3HR PRN for NAUSEA/VOMITING Prescribed by: ROHAN MONTES on 11/25/19 1506 Sulfamethoxazole/Trimethoprim (Sulfamethoxazole-Tmp Susp 200MG/40MG/5ML) 473 Ml Oral.susp, 20 ML PO BID Prescribed by: BRAYDON LYLES on 05/21/21 1541 Review of Systems Review of Systems Constitutional: no symptoms reported EENTM: No Symptoms Reported Respiratory: No Symptoms Reported Cardiovascular: No Symptoms Reported Gastrointestinal: No Symptoms Reported Genitourinary: No Symptoms Reported Musculoskeletal: no symptoms reported Skin: no symptoms reported Psychiatric/Neurological: No Symptoms Reported Endocrine: No Symptoms Reported Hematologic/Lymphatic: No Symptoms Reported All Other Systems Reviewed Negative Unless Noted: Yes Past Nyigvhv-Ebryka-Effvpe Hx Patient Social History Tobacco Use?: No Use of E-Cig and/or Vaping dev: No Substance use?: No Alcohol Use?: No Pt feels they are or have been: No Immunizations Up To Date Tetanus Booster (TDap): Unknown Influenza Vaccine Up-to-Date: No; Not Current Seasonal Allergies Seasonal Allergies: Yes Past Medical History Surgeries: Yes (GASTRIC TUBE) Abdominal, Gallbladder, Hysterectomy Respiratory: Yes Asthma Currently Using CPAP: No Currently Using BIPAP: No Cardiac: Yes Hypertension Neurological: No 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 Disorders: No Female 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 14.4oz. 44.910081oa; 24.00 BMI Method:Stated General Appearance: WD/WN, no apparent distress HEENT: PERRL/EOMI, normal ENT inspection, pharynx normal Neck: non-tender, full range of motion, supple, normal inspection Respiratory: chest non-tender, lungs clear, normal breath sounds, no respiratory distress, no accessory muscle use Cardiovascular: regular rate, rhythm, no edema, no murmur Gastrointestinal: normal bowel sounds, non tender, soft; No guarding, No rebound; other (G-tube stoma patent with gastric contents leaking) Extremities: normal range of motion, non-tender, normal inspection, no pedal edema, no calf tenderness, normal capillary refill Back: normal inspection Neurologic/Psychiatric: no motor/sensory deficits, alert, normal mood/affect Skin: normal color, warm/dry Lymphatic: no adenopathy Procedures/Interventions Patient Education: Explained Benefits, Explained Risks, Pt. Ack. Understanding Breath Sounds per Auscultation: Crackles, Wheezes Heart Sounds per Auscultation: Regular Airway Exam: Mouth opens >2 fingers, Neck Full Range of Motion, Visulation of Uvula Sedation Adminstration Time: 180 Re-examination Time: 1844 Additional Procedures: gastric tube replacement Progress 18 [place]orese gastric tube placed with lubricant without any pain or issue. Gastric contents aspirated afterwards confirming placement. Balloon inflated. Patient tolerated procedure well. Progress/Results/Core Measures Progress Progress Note : Progress Note 60-year-old female with above history coming in because her G-tube fell out. ABCs were intact and vitals were stable on presentation. She brought the G-tube with her which was an 18 [place]orese. The balloon is deflated, and the patient does not remember doing this. I was able to inflate the balloon and it did stay inflated but there was what appeared to be a slow subtle leak. Replaced this tube with a replica and she tolerated the procedure well. She was then discharged home in stable condition with strict return precautions Departure Impression Primary Impression: Problem with gastrostomy tube Disposition: 01 HOME, SELF-CARE Condition: Stable Departure-Patient Inst. Decision time for Depature: 20:46 Referrals: CHIQUITA RICH MD (PCP/Family) Primary Care Physician Patient Instructions: How to Care for Your Gastrostomy Tube Add. Discharge Instructions: If you continue to have significant leakage around the G-tube site, you may want to follow-up with the surgeon that placed it, and they may change the size or try different tube. All discharge instructions reviewed with patient and/or family. Voiced understanding. MOLLY HOYT MD Jul 09, 2021 20:47
[2021-07-09 21:22] VITALS: BP 129/79
== END 2021-07-09 21:11 | disposition home or self-care (01) ==
LOC: EDUNIT# 20:25 → ER 20:26
DX: K94.23 Gastrostomy malfunction (principal); I10 Essential (primary) hypertension; K21.9 Gastro-esophageal reflux disease without esophagitis; J45.909 Unspecified asthma, uncomplicated; Z90.710 Acquired absence of both cervix and uterus; Z88.5 Allergy status to narcotic agent; Z79.899 Other long term (current) drug therapy
CPT/HCPCS: 99281

== ENCOUNTER 2021-08-25 12:44 | Emergency (ER) | payer MEDICAID ==
[~2021-08-25] VITALS: Ht 149.9 cm; Wt 59.0 kg
--- NOTE | 2021-08-25 13:22 | ED Respiratory ---
General Chief Complaint: Foreign Body Stated Complaint: TRACH TUBE MISSING History of Present Illness Date Seen by Provider: Aug 25, 2021 Time Seen by Provider: 13:05 Initial Comments 60 year old female with trach present for 12-18 months. 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 Surgeries completed at [facility]. 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 It was not dislodged and present in the bag or dressing she has on.Dressing is securely taped to neck and chest. She looked on floor around her and it was not found. She denies cough, SOA or other resp compromise. Last time she had tub feeding, 829. Timing/Duration: just prior to arrival Prior Episodes/Possible Cause: occasional episodes Associated Symptoms: denies symptoms Allergies and Home Medications Allergies Coded Allergies: codeine (Unverified Adverse Reaction, Unknown, 09/03/18) severe stomach pain Patient Home Medication List Home Medication List Reviewed: Yes Fentanyl (Fentanyl Patch 25 MCG) 1 Each Patch.td72, 25 MCG TD Q72H Prescribed by: BISHOP VAN on 11/25/19 1008 Hydrocodone/Acetaminophen (Hydrocodone-Acetamn 7.5-325/15) 118 Ml Solution, 20 ML PEG Q6H PRN for PAIN-MODERATE Prescribed by: BISHOP VAN on 11/25/19 1008 Lorazepam (Ativan) 0.5 Mg Tablet, 0.5 MG SL Q6H PRN for AGITATION Prescribed by: BISHOP VAN on 11/25/19 1008 Melatonin (Melatonin) 3 Mg Tablet, 3 MG PO HS PRN for SLEEP, (Reported) Entered as Reported by: ROSANA GUILLEN on 04/30/19 1000 Metoclopramide HCl (Reglan) 10 Mg Tablet, 10 MG PO QIDPCHS PRN for NAUSEA/VOMITING-3RD LINE, (Reported) Entered as Reported by: CHRISTIE MEANS on 11/21/19 1518 Prochlorperazine Maleate (Prochlorperazine Maleate) 10 Mg Tablet, 10 MG PO Q4H PRN for NAUSEA/VOMITING-4TH LINE, (Reported) Entered as Reported by: CHRISTIE MEANS on 11/21/19 1518 Promethazine HCl (Promethazine Tablet) 25 Mg Tablet, 25 MG PO Q3HR PRN for NAUSEA/VOMITING Prescribed by: ROHAN MONTES on 11/25/19 1506 Sulfamethoxazole/Trimethoprim (Sulfamethoxazole-Tmp Susp 200MG/40MG/5ML) 473 Ml Oral.susp, 20 ML PO BID Prescribed by: BRAYDON LYLES on 05/21/21 1541 Review of Systems Review of Systems Constitutional: no symptoms reported, see HPI Respiratory: see HPI; No short of breath; other (aspirated resp tube) Gastrointestinal: no symptoms reported, see HPI All Other Systems Reviewed Negative Unless Noted: Yes Past Agpsnlh-Bzxkfz-Qvxzyz Hx Immunizations Up To Date Tetanus Booster (TDap): Unknown Seasonal Allergies Seasonal Allergies: Yes Past Medical History Surgeries: Yes (GASTRIC TUBE) Abdominal, Gallbladder, Hysterectomy Respiratory: Yes Asthma Currently Using CPAP: No Currently Using BIPAP: No Cardiac: Yes Hypertension Neurological: No 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 Disorders: No Female 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 Sexually Transmitted Disease: No HIV/AIDS: No Genitourinary: No Gastrointestinal: Yes (Blind esophagus, G-tube, J-tube) Gastroesophageal Reflux, Hiatal Hernia Musculoskeletal: Yes Chronic Back Pain Endocrine: No HEENT: No Loss of Vision: Bilateral Hearing Impairment: Denies Cancer: No Psychosocial: No Integumentary: No Blood Disorders: No Adverse Reaction/Blood Tranf: No Family Medical History Reviewed Nursing Family Hx Hypertension 19 FATHER G8 SISTER No Pertinent Family Hx Physical Exam Vital Signs - First Documented 08/25/21 08/25/21 12:52 17:06 Temp 36.9 Pulse 112 Resp 16 B/P (MAP) 151/91 (111) Pulse Ox 97 O2 Delivery Room Air Capillary Refill : Height: 4'11.00" Weight: 98lbs. 14.4oz. 44.521024do; 28.00 BMI Method:Stated General Appearance: WD/WN, no apparent distress HEENT: PERRL/EOMI, normal ENT inspection, TMs normal, pharynx normal Neck: non-tender, full range of motion, other (trach stoma with clear to purulent drainage, erythema (chronic) to neck. Dressing and d/c bag removed, tube not present. Tube not visualized. ) Respiratory: chest non-tender, lungs clear, normal breath sounds, no respiratory distress, no accessory muscle use Cardiovascular: normal peripheral pulses, regular rate, rhythm Gastrointestinal: normal bowel sounds, non tender, soft Neurologic/Psychiatric: no motor/sensory deficits, alert, normal mood/affect, oriented x 3 Skin: normal color, warm/dry Procedures/Interventions Patient Education: Explained Benefits, Explained Risks, Pt. Ack. Understanding Breath Sounds per Auscultation: Crackles, Wheezes Heart Sounds per Auscultation: Regular Airway Exam: Mouth opens >2 fingers, Neck Full Range of Motion, Visulation of Uvula Sedation Adminstration Time: 180 Re-examination Time: 1844 Progress/Results/Core Measures Suspected Sepsis SIRS Temperature: Pulse: Respiratory Rate: Blood Pressure / Mean: Results/Orders My Orders Orders - IGOR ROBERT Chest 1 View, Ap/Pa Only (08/25/21 13:06) Vital Signs/I&O 08/25/21 08/25/21 12:52 17:06 Temp 36.9 Pulse 112 84 Resp 16 19 B/P (MAP) 151/91 (111) 140/82 Pulse Ox 97 O2 Delivery Room Air Room Air Capillary Refill : Progress Note : Time: 13:05 Progress Note Patient seen and evaluated. RT present suctioned stoma, not able to visualize tube. 1330 Will consult anesthesia for general surgery. 1400 spoke to ANTONIO [place], did not feel they could visualize the tube with their scope. Spoke to Dr. Ley, recommended the patient follow up with surgeon at [facility]. 1430 Dr. Devlin here, evaluated patient. Will plan bronchosopy to try and remove the tube. Patient agreeable. 1500 patient changing into Gown, tube found in shirt. Notified endoscopy and Dr. Devlin. He will come in place a different tube. 1530 22 Fr Rectal catheter tube inserted by Dr. Devlin Small amount of fluid in balloon to secure it. Patient tolerated procedure well. Used ice pack to act as a drainage device for the tube. Secured to the tube safely. The patient has continued to have no shortness of breath or difficulty breathing. 1600 patient discharge instructions and return precautions reviewed. All questions answered Diagnostic Imaging Diagonstic Imaging: Xray Plain Films/CT/US/NM/MRI: chest Comments NAME: HERBERT XAVIER MED REC#: [id number] PT STATUS: REG ER : 1960 PHYSICIAN: IGOR ROBERT ADMIT DATE: 08/25/21/ER Draft Date of Exam:08/25/21 CHEST 1 VIEW, AP/PA ONLY INDICATION: Displaced tracheostomy tube. TIME OF EXAM: 1:21 p.m. COMPARISON: Correlation is made with prior chest from 01/08/2019. FINDINGS: Heart is enlarged but stable. Lungs appear to be clear. No endotracheal tube or tracheostomy tube is visualized on this radiograph. There is no effusion or pneumothorax. IMPRESSION: No acute feature detected. Dictated on workstation # [id number] Dict: 08/25/21 1318 Trans: 08/25/21 1320 [id number] Interpreted by: FAIZA KEE MD Electronically signed by: Reviewed: Reviewed by Me Departure Impression Primary Impression: Tracheostomy complication Qualified Codes: J95.09 - Other tracheostomy complication Disposition: 01 HOME, SELF-CARE Condition: Improved Departure-Patient Inst. Decision time for Depature: 15:20 Referrals: CHIQUITA RICH MD (PCP/Family) Primary Care Physician Patient Instructions: Tracheotomy (DC) Add. Discharge Instructions: Follow up with Dr. Devlin, as needed. Continue Trach care. Return to Surgeon at , as needed. Return to Emergency Dept for new, urgent needs. All discharge instructions reviewed with patient and/or family. Voiced understanding. Copy Copies To 1: INGRIS DEVLIN AMY ARNP Aug 25, 2021 13:22
[2021-08-25 17:06] VITALS: BP 140/82
--- NOTE | 2021-08-25 17:10 | Consultation - Surgery ---
History of Present Illness History of Present Illness Patient Consulted On(marbella/time) 08/25/21 15:04 Date Seen by Provider: Aug 25, 2021 Time Seen by Provider: 15:04 History of Present Illness Consult requested by Ana Luisa Rowell for dislodged tube. Seen and evaluated emergency department. Patient is a 60-year-old female who approximately 2 years ago underwent a repeat Marisol fundoplication. She states that she had a hole in her esophagus and had to be transferred to [facility]. Patient states that the stomach and the esophagus had to be . She had a feeding tube already in place for nutrition. Patient states that she had to have a tube placed in the neck so that her esophagus could drain. Patient today had the tube possibly swallowed down into the esophagus. It was draining typically into the bag her secretions. She states she still has to spit up secretions even at times when this is draining properly. Patient had a cervical esophagostomy matured for this tube to be placed through. Patient with no other complaints. She denies any nausea vomiting fever sweats chills shortness of breath or chest pain. Patient surgeon is Dr. Escobar at which she saw last April and is planning to see him in September to start discussing reconnecting the stomach and esophagus. Allergies and Home Medications Allergies Coded Allergies: codeine (Unverified Adverse Reaction, Unknown, 09/03/18) severe stomach pain Patient Home Medication List Home Medication List Reviewed: Yes Fentanyl (Fentanyl Patch 25 MCG) 1 Each Patch.td72, 25 MCG TD Q72H Prescribed by: BISHOP VAN on 11/25/19 1008 Hydrocodone/Acetaminophen (Hydrocodone-Acetamn 7.5-325/15) 118 Ml Solution, 20 ML PEG Q6H PRN for PAIN-MODERATE Prescribed by: BISHOP VAN on 11/25/19 1008 Lorazepam (Ativan) 0.5 Mg Tablet, 0.5 MG SL Q6H PRN for AGITATION Prescribed by: BISHOP VAN on 11/25/19 1008 Melatonin (Melatonin) 3 Mg Tablet, 3 MG PO HS PRN for SLEEP, (Reported) Entered as Reported by: ROSANA GUILLEN on 04/30/19 1000 Metoclopramide HCl (Reglan) 10 Mg Tablet, 10 MG PO QIDPCHS PRN for NA USEA/VOMITING-3RD LINE, (Reported) Entered as Reported by: CHRISTIE MEANS on 11/21/19 1518 Prochlorperazine Maleate (Prochlorperazine Maleate) 10 Mg Tablet, 10 MG PO Q4H PRN for NAUSEA/VOMITING-4TH LINE, (Reported) Entered as Reported by: CHRISTIE MEANS on 11/21/19 1518 Promethazine HCl (Promethazine Tablet) 25 Mg Tablet, 25 MG PO Q3HR PRN for NAUSEA/VOMITING Prescribed by: ROHAN MONTES on 11/25/19 1506 Sulfamethoxazole/Trimethoprim (Sulfamethoxazole-Tmp Susp 200MG/40MG/5ML) 473 Ml Oral.susp, 20 ML PO BID Prescribed by: BRAYDON LYLES on 05/21/21 1541 Past Oqmkqog-Ejyytk-Mllcil Hx Patient Social History Smoking Status: Never a Smoker 2nd Hand Smoke Exposure: No Recent Hopitalizations: No Alcohol Use?: No Have you traveled recently?: No Immunizations Up To Date Tetanus Booster (TDap): Unknown Date of Pneumonia Vaccine: Sep 18, 2019 Date of Influenza Vaccine: Nov 15, 2019 Seasonal Allergies Seasonal Allergies: Yes Surgeries History of Surgeries: Yes (GASTRIC TUBE) Surgeries: Abdominal, Gallbladder, Hysterectomy Respiratory History of Respiratory Disorde: Yes Respiratory Disorders: Asthma Cardiovascular History of Cardiac Disorders: Yes Cardiac Disorders: Hypertension Neurological History of Neurological Disord: No 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 System Hx 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 Disorders: No Sexually Transmitted Disease: No HIV/AIDS: No Female 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 Genitourinary History of Genitourinary Disor: No Gastrointestinal History of Gastrointestinal Di: Yes (Blind esophagus, G-tube, J-tube) Gastrointestinal Disorders: Gastroesophageal Reflux, Hiatal Hernia Musculoskeletal History of Musculoskeletal Dis: Yes Musculoskeletal Disorders: Chronic Back Pain Endocrine History of Endocrine Disorders: No HEENT History of HEENT Disorders: No Loss of Vision: Bilateral Hearing Impairment: Denies Cancer History of Cancer: No Psychosocial History of Psychiatric Problem: No Integumentary History of Skin or Integumenta: No Blood Transfusions History of Blood Disorders: No Adverse Reaction to a Blood Tr: No Reviewed Nursing Assessment Reviewed/Agree w Nursing PMH: Yes Family Medical History Significant Family History: No Pertinent Family Hx Family Medial History: Hypertension 19 FATHER G8 SISTER Review of Systems-General Constitutional: No chills, No diaphoresis EENTM: No blurred vision, No double vision Respiratory: No cough, No dyspnea on exertion Cardiovascular: No chest pain, No palpitations Gastrointestinal: No nausea, No vomiting Genitourinary: No decreased output, No discharge Musculoskeletal: No gout, No joint pain Skin: No change in color, No change in hair/nails Psychiatric/Neurological: Denies Anxiety, Denies Depressed, Denies Emotional Problems All Other Systems Reviewed Negative Unless Noted: Yes (Negative excepted noted.) Physical Exam-General Problems Physical Exam Vital Signs Vital Signs - First Documented 08/25/21 12:52 Temp 36.9 Pulse 112 Resp 16 B/P (MAP) 151/91 (111) O2 Delivery Room Air Capillary Refill : Less Than 3 Seconds General Appearance: WD/WN, no apparent distress HEENT: PERRL/EOMI, normal ENT inspection Neck: full range of motion, supple, other (Esophagostomy left neck lower) Respiratory: chest non-tender, no respiratory distress, no accessory muscle use Cardiovascular: regular rate, rhythm, no JVD Gastrointestinal: non tender, soft, other (Feeding tube) Rectal: deferred Back: normal inspection, no CVA tenderness Extremities: non-tender, normal inspection Neurologic/Psychiatric: no motor/sensory deficits, alert, normal mood/affect, oriented x 3 Skin: normal color, warm/dry Lymphatic: no adenopathy Assessment/Plan Assessment/Plan Assessment/Plan Malfunction esophagostomy tube 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 We discussed replacing the tube with a 22 [place] Benjamin catheter. Patient understands and agrees with plan. I did talk to her surgeon at who agrees with plan as well. She has follow-up arranged with him. If she has any issues she should either follow-up with myself for him. Patient was positioned to to where the cervical esophagostomy is well exposed. A lubricated 22 [place]an Benjamin catheter was able to be inserted without difficulty through the esophagostomy into the esophagus and advanced without difficulty. Secretions returned through catheter. The balloon was inflated with 5 cc of saline. Patient tolerated without any complication. INGRIS DEVLIN DO Aug 25, 2021 17:09
== END 2021-08-25 17:06 | disposition home or self-care (01) ==
LOC: EDUNIT# 12:44 → ER 12:46
DX: J95.09 Other tracheostomy complication (principal); J45.909 Unspecified asthma, uncomplicated; I10 Essential (primary) hypertension; G89.29 Other chronic pain; M54.9 Dorsalgia, unspecified; Z79.891 Long term (current) use of opiate analgesic
CPT/HCPCS: 71045

== ENCOUNTER 2021-10-05 20:44 | Emergency (ER) | payer MEDICAID ==
--- NOTE | 2021-10-05 20:55 | ED GI ---
General Chief Complaint: Catheter/Drain/Tube Problems Stated Complaint: FEEDING TUBE CLOGGED Source of Information: Patient Exam Limitations: No Limitations (CARITO BACON APRN) History of Present Illness Date Seen by Provider: Oct 05, 2021 Time Seen by Provider: 20:55 Initial Comments To ER by private vehicle accompanied by her daughter with reports of her gastric tube being clogged. She had some difficulty feeding at about 5 PM and currently is unable to get anything to go through. No fevers or chills. 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 Timing/Duration: 1-2 Days Location: Generalized Abdomen Radiation: No Radiation Activities at Onset: None Associated Symptoms: Denies Symptoms (CARITO BACON APRN) Allergies and Home Medications Allergies Coded Allergies: codeine (Unverified Adverse Reaction, Unknown, 09/03/18) severe stomach pain Patient Home Medication List Home Medication List Reviewed: Yes (CARITO BACON APRN) Fentanyl (Fentanyl Patch 25 MCG) 1 Each Patch.td72, 25 MCG TD Q72H Prescribed by: BISHOP VAN on 11/25/19 1008 Hydrocodone/Acetaminophen (Hydrocodone-Acetamn 7.5-325/15) 118 Ml Solution, 20 ML PEG Q6H PRN for PAIN-MODERATE Prescribed by: BISHOP VAN on 11/25/19 1008 Lorazepam (Ativan) 0.5 Mg Tablet, 0.5 MG SL Q6H PRN for AGITATION Prescribed by: BISHOP VAN on 11/25/19 1008 Melatonin (Melatonin) 3 Mg Tablet, 3 MG PO HS PRN for SLEEP, (Reported) Entered as Reported by: ROSANA GUILLEN on 04/30/19 1000 Metoclopramide HCl (Reglan) 10 Mg Tablet, 10 MG PO QIDPCHS PRN for NAUSEA/VO MITING-3RD LINE, (Reported) Entered as Reported by: CHRISTIE MEANS on 11/21/19 1518 Prochlorperazine Maleate (Prochlorperazine Maleate) 10 Mg Tablet, 10 MG PO Q4H PRN for NAUSEA/VOMITING-4TH LINE, (Reported) Entered as Reported by: CHRISTIE MEANS on 11/21/19 1518 Promethazine HCl (Promethazine Tablet) 25 Mg Tablet, 25 MG PO Q3HR PRN for NAUSEA/VOMITING Prescribed by: ROHAN MONTES on 11/25/19 1506 Sulfamethoxazole/Trimethoprim (Sulfamethoxazole-Tmp Susp 200MG/40MG/5ML) 473 Ml Oral.susp, 20 ML PO BID Prescribed by: BRAYDON LYLES on 05/21/21 1541 Review of Systems Review of Systems Constitutional: see HPI EENTM: No Symptoms Reported Respiratory: No Symptoms Reported Cardiovascular: No Symptoms Reported Gastrointestinal: No Symptoms Reported Genitourinary: No Symptoms Reported Musculoskeletal: no symptoms reported Skin: no symptoms reported Psychiatric/Neurological: No Symptoms Reported Endocrine: No Symptoms Reported Hematologic/Lymphatic: No Symptoms Reported (CARITO BACON APRN) Past Eslmjxi-Vowefh-Zoeexx Hx Immunizations Up To Date Tetanus Booster (TDap): Unknown (CARITO BACON APRN) Seasonal Allergies Seasonal Allergies: Yes (CARITO BACON APRN) Past Medical History Surgeries: Yes (GASTRIC TUBE) Abdominal, Gallbladder, Hysterectomy Respiratory: Yes Asthma Currently Using CPAP: No Currently Using BIPAP: No Cardiac: Yes Hypertension Neurological: No 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 Disorders: No Female 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 Disorders: Denies 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 Sexually Transmitted Disease: No HIV/AIDS: No Genitourinary: No Gastrointestinal: Yes (Blind esophagus, G-tube, J-tube) Gastroesophageal Reflux, Hiatal Hernia Musculoskeletal: Yes Chronic Back Pain Endocrine: No HEENT: No Loss of Vision: Bilateral Hearing Impairment: Denies Cancer: No Psychosocial: No Integumentary: No Blood Disorders: No Adverse Reaction/Blood Tranf: No (CARITO BACON APRN) Family Medical History Hypertension 19 FATHER G8 SISTER No Pertinent Family Hx (CARITO BACON APRN) Physical Exam Vital Signs Vital Signs - First Documented 10/05/21 20:50 Temp 37.7 Pulse 113 Resp 16 B/P (MAP) 174/99 (124) Pulse Ox 95 O2 Delivery Room Air (FIONA HUFF DO) Vital Signs Capillary Refill : (CARITO BACON APRN) Height/Weight/BMI Height: 4'11.00" Weight: 98lbs. 14.4oz. 44.202208qk; 26.00 BMI Method:Stated General Appearance: WD/WN, no apparent distress HEENT: PERRL/EOMI, normal ENT inspection Neck: non-tender, full range of motion Respiratory: no respiratory distress, no accessory muscle use Gastrointestinal: normal bowel sounds, non tender, soft Extremities: normal range of motion Neurologic/Psychiatric: alert, normal mood/affect, oriented x 3 Skin: normal color, warm/dry (CARITO BACON APRN) Procedures/Interventions Patient Education: Explained Benefits, Explained Risks, Pt. Ack. Understanding Breath Sounds per Auscultation: Crackles, Wheezes Heart Sounds per Auscultation: Regular Airway Exam: Mouth opens >2 fingers, Neck Full Range of Motion, Visulation of Uvula Sedation Adminstration Time: 180 Re-examination Time: 1844 (CARITO BACON APRN) Progress/Results/Core Measures Results/Orders Vital Signs/I&O 10/05/21 10/05/21 20:50 21:23 Temp 37.7 37.7 Pulse 113 99 Resp 16 16 B/P (MAP) 174/99 (124) 151/100 Pulse Ox 95 95 O2 Delivery Room Air Room Air (FIONA HUFF DO) Departure Communication (Admissions) 2119- Italian gastrostomy tube clogged. This was deflated, removed and replaced with a new 1 wihtout difficulty and easily flushed with 30ml tapwater . (CARITO BACON APRN) Impression Primary Impression: PEG tube malfunction Disposition: 01 HOME, SELF-CARE Condition: Stable Departure-Patient Inst. Decision time for Depature: 21:05 (CARITO BACON APRN) Referrals: CHIQUITA RICH MD (PCP/Family) Primary Care Physician Patient Instructions: NO INSTRUCTIONS GIVEN ATTENDING PHYSICIAN NOTE: I WAS PHYSICALLY PRESENT ER PHYSICIAN WHEN THIS PATIENT WAS IN ER, BUT I WAS NOT INVOLVED IN ANY DECISION MAKING OR ANY CARE OF THIS PATIENT. (FIONA HUFF DO) CARITO BACON APRN Oct 05, 2021 20:55 FIONA HUFF DO Oct 05, 2021 23:38
[2021-10-05 21:23] VITALS: BP 151/100
== END 2021-10-05 21:23 | disposition home or self-care (01) ==
LOC: EDUNIT# 20:44 → ER 20:46
DX: K94.23 Gastrostomy malfunction (principal); J45.909 Unspecified asthma, uncomplicated; I10 Essential (primary) hypertension; G89.29 Other chronic pain; M54.9 Dorsalgia, unspecified; Z79.891 Long term (current) use of opiate analgesic
CPT/HCPCS: 43762

== ENCOUNTER 2021-12-27 10:35 | Inpatient (IN) | payer MEDICARE, MEDICAID ==
[~2021-12-27] VITALS: Ht 148.8 cm; Wt 73.2 kg
[~2021-12-27 10:35] MED LIST changes: +METO-310 JT
[2021-12-27] MEDS ORDERED: fentaNYL INJ 100 MCG/2 ML AMP IVP ONE (11:00)
[2021-12-27] MEDS ORDERED: VANCOMYCIN INJECTION 1,000 MG in NS (IVPB) 250 ML IV ONE (11:00)
[2021-12-27] MEDS ORDERED: PIPERACILLIN SODIUM/TAZOBACTAM 4.5 GM in NS (IVPB) 100 ML IV ONE (11:00)
[2021-12-27] MEDS ORDERED: NS IV 1000 ML 1,000 ML IV SCH (11:00)
[2021-12-27] MEDS ORDERED: PANTOPRAZOLE 40 MG (PROTONIX) VIAL IV ONE (11:00)
[2021-12-27 11:17] LABS: ALBUMIN 4.6 GM/DL (3.2-4.5); BASOPHILS % (AUTO) 1 % (0-10); CHLORIDE 93 MMOL/L (98-107); EOSINOPHILS % (AUTO) 1 % (0-10); HEMATOCRIT 53 % (35-52); HEMOGLOBIN 16.9 g/dL (11.5-16.0); LYMPHOCYTES # (AUTO) 1.3 10^3/uL (1.0-4.0); LYMPHOCYTES % (AUTO) 25 % (12-44); MEAN CORPUSCULAR HEMOGLOBIN 33 pg (25-34); MEAN CORPUSCULAR HGB CONC 32 g/dL (32-36); MEAN CORPUSCULAR VOLUME 105 fL (80-99); MEAN PLATELET VOLUME 9.2 fL (9.0-12.2); MONOCYTES # (AUTO) 0.6 10^3/uL (0.0-1.0); MONOCYTES % (AUTO) 12 % (0-12); NEUTROPHILS # (AUTO) 3.2 10^3/uL (1.8-7.8); NEUTROPHILS % (AUTO) 62 % (42-75); PLATELET COUNT 488 10^3/uL (130-400); SODIUM 140 MMOL/L (135-145); WHITE BLOOD COUNT 5.2 10^3/uL (4.3-11.0)
[2021-12-27 11:18] LABS: CALCIUM 9.6 MG/DL (8.5-10.1)
[2021-12-27 11:19] LABS: GLUCOSE 156 MG/DL (70-105); INR 0.9 (0.8-1.4); POTASSIUM 4.8 MMOL/L (3.6-5.0); PROTHROMBIN TIME PATIENT 12.9 SEC (12.2-14.7)
[2021-12-27 11:20] LABS: TOTAL PROTEIN 8.9 GM/DL (6.4-8.2)
[2021-12-27 11:21] LABS: BILIRUBIN,TOTAL 1.2 MG/DL (0.1-1.0); CARBON DIOXIDE 24 MMOL/L (21-32)
[2021-12-27 11:23] LABS: ALKALINE PHOSPHATASE 189 U/L (40-136); CREATININE SERUM 1.84 MG/DL (0.60-1.30); GFR ESTIMATED 31
[2021-12-27 11:24] LABS: BUN/CREATININE RATIO 29
[2021-12-27 11:26] LABS: ALANINE AMINOTRANSFERASE 97 U/L (0-55)
--- NOTE | 2021-12-27 11:31 | ED Abdominal Pain ---
General Chief Complaint: Abdominal/GI Problems Stated Complaint: CONSTIPATION Nursing Triage Note: PT BROUGHT IN BY [facility] FROM HOME WITH CONSTIPATION. PT HAS EXTENSIVE GI HX AND SURGERIES. Source of Information: Patient Exam Limitations: No Limitations History of Present Illness Date Seen by Provider: Dec 27, 2021 Time Seen by Provider: 10:54 Initial Comments Patient to the ER by EMS from home with chief complaint she is having about a week of progressively worsening abdominal distention, fecalization around her gastrostomy tube. No Fever, Nausea. Not passing stools or gas. Hx of hyst, hiatal hernia surgery that resulted and esophagus not being hooked up to stomach. She has a PEG tube in and was doing her feeds on a pump overnight but is not sure how much she actually got in. She did take some pain medicine thr ough her gastrostomy tube prior to coming in this morning and does not feel like it is controlling her chronic low back pain. She does not have a history of bowel obstruction but she does have chronic constipation. She has been taken laxatives in the past week. No enemas. Allergies and Home Medications Allergies Coded Allergies: codeine (Unverified Adverse Reaction, Unknown, 09/03/18) severe stomach pain Patient Home Medication List Home Medication List Reviewed: Yes Fentanyl (Fentanyl Patch 25 MCG) 1 Each Patch.td72, 25 MCG TD Q72H Prescribed by: BISHOP VAN on 11/25/19 1008 Hydrocodone/Acetaminophen (Hydrocodone-Acetamn 7.5-325/15) 118 Ml Solution, 20 ML PEG Q6H PRN for PAIN-MODERATE Prescribed by: BISHOP VAN on 11/25/19 1008 Lorazepam (Ativan) 0.5 Mg Tablet, 0.5 MG SL Q6H PRN for AGITATION Prescribed by: BISHOP VAN on 11/25/19 1008 Melatonin (Melatonin) 3 Mg Tablet, 3 MG PO HS PRN for SLEEP, (Reported) Entered as Reported by: ROSANA GUILLEN on 04/30/19 1000 Metoclopramide HCl (Reglan) 10 Mg Tablet, 10 MG PO QIDPCHS PRN for NAUSEA/VOMITING-3RD LINE, (Reported) Entered as Reported by: CHRISTIE MEANS on 11/21/19 1518 Prochlorperazine Maleate (Prochlorperazine Maleate) 10 Mg Tablet, 10 MG PO Q4H PRN for NAUSEA/VOMITING-4TH LINE, (Reported) Entered as Reported by: CHRISTIE MEANS on 11/21/19 1518 Promethazine HCl (Promethazine Tablet) 25 Mg Tablet, 25 MG PO Q3HR PRN for NAUSEA/VOMITING Prescribed by: ROHAN MONTES on 11/25/19 1506 Sulfamethoxazole/Trimethoprim (Sulfamethoxazole-Tmp Susp 200MG/40MG/5ML) 473 Ml Oral.susp, 20 ML PO BID Prescribed by: BRAYDON LYLES on 05/21/21 1541 Review of Systems Review of Systems Constitutional: No chills, No fever; malaise EENTM: No Blurred Vision, No Double Vision Respiratory: Denies Cough, Denies Shortness of Air Cardiovascular: Denies Chest Pain, Denies Lightheadedness Gastrointestinal: See HPI, Abdomen Distended, Abdominal Pain, Constipated; Denies Diarrhea, Denies Nausea; Poor Fluid Intake Genitourinary: Denies Burning, Denies Discharge Musculoskeletal: No back pain, No joint pain Psychiatric/Neurological: Denies Anxiety, Denies Depressed All Other Systems Reviewed Negative Unless Noted: Yes Past Kmedpde-Ohhsrf-Shtzbi Hx Patient Social History Tobacco Use?: No Use of E-Cig and/or Vaping dev: No Substance use?: No Alcohol Use?: No Pt feels they are or have been: No Immunizations Up To Date Tetanus Booster (TDap): Unknown First/Initial COVID19 Vaccinat: WITHIN THE PAST 7 DAYS Second COVID19 Vaccination Kedar: WITHIN THE PAST 7 DAYS Third COVID19 Vaccination Date: WITHIN THE PAST 7 DAYS Seasonal Allergies Seasonal Allergies: Yes Past Medical History Surgeries: Yes (GASTRIC TUBE) Abdominal, Gallbladder, Hysterectomy Respiratory: Yes Asthma Currently Using CPAP: No Currently Using BIPAP: No Cardiac: Yes Hypertension Neurological: No 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 Disorders: No 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 Sexually Transmitted Disease: No HIV/AIDS: No Genitourinary: No Gastrointestinal: Yes (Blind esophagus, G-tube, J-tube) Gastroesophageal Reflux, Hiatal Hernia Musculoskeletal: Yes Chronic Back Pain Endocrine: No HEENT: No Loss of Vision: Bilateral Hearing Impairment: Denies Cancer: No Psychosocial: No Integumentary: No Blood Disorders: No Adverse Reaction/Blood Tranf: No Family Medical History Hypertension 19 FATHER G8 SISTER No Pertinent Family Hx Physical Exam Vital Signs Vital Signs - First Documented 12/27/21 10:39 Temp 37.9 Pulse 138 Resp 17 B/P (MAP) 131/99 (110) Pulse Ox 96 O2 Delivery Nasal Cannula O2 Flow Rate 2.00 Capillary Refill : Less Than 3 Seconds Height/Weight/BMI Height: 4'11.00" Weight: 98lbs. 14.4oz. 44.623675mz; 25.00 BMI Method:Stated General Appearance: moderate distress, other (Chronically ill) HEENT: PERRL/EOMI, normal ENT inspection, pharynx normal Neck: full range of motion, supple, normal inspection Respiratory: lungs clear, normal breath sounds, no respiratory distress, no accessory muscle use Cardiovascular: normal peripheral pulses, regular rate, rhythm Peripheral Pulses: 2+ Radial Pulses (R), 2+ Radial Pulses (L) Gastrointestinal: abnormal bowel sounds (High-pitched, tinkling all 4 quadrants), distended, tenderness (Mild tenderness all 4 quadrants), other (Gastrostomy tube with fecalized gastric contents coming out and around the tube. Foul-smelling. Mild erythema but no induration or purulence noted.) Extremities: normal range of motion, non-tender, normal inspection, normal capillary refill Skin: normal color, warm/dry Focused Exam Lactate Level 12/27/21 10:44: Lactic Acid Level 1.53 Lactic Acid Level Laboratory Tests Test 12/27/21 10:44 Lactic Acid Level 1.53 MMOL/L (0.50-2.00) Procedures/Interventions Patient Education: Explained Benefits, Explained Risks, Pt. Ack. Understanding Breath Sounds per Auscultation: Crackles, Wheezes Heart Sounds per Auscultation: Regular Airway Exam: Mouth opens >2 fingers, Neck Full Range of Motion, Visulation of Uvula Sedation Adminstration Time: 1803 Re-examination Time: 1845 Progress/Results/Core Measures Results/Orders Lab Results Laboratory Tests Test 12/27/21 10:44 Range/Units White Blood Count 5.2 4.3-11.0 10^3/uL Red Blood Count 5.06 3.80-5.11 10^6/uL Hemoglobin 16.9 H 11.5-16.0 g/dL Hematocrit 53 H 35-52 % Mean Corpuscular Volume 105 H 80-99 fL Mean Corpuscular Hemoglobin 33 25-34 pg Mean Corpuscular Hemoglobin Concent 32 32-36 g/dL Red Cell Distribution Width 12.2 10.0-14.5 % Platelet Count 488 H 130-400 10^3/uL Mean Platelet Volume 9.2 9.0-12.2 fL Immature Granulocyte % (Auto) 0 % Neutrophils (%) (Auto) 62 42-75 % Lymphocytes (%) (Auto) 25 12-44 % Monocytes (%) (Auto) 12 0-12 % Eosinophils (%) (Auto) 1 0-10 % Basophils (%) (Auto) 1 0-10 % Neutrophils # (Auto) 3.2 1.8-7.8 10^3/uL Lymphocytes # (Auto) 1.3 1.0-4.0 10^3/uL Monocytes # (Auto) 0.6 0.0-1.0 10^3/uL Eosinophils # (Auto) 0.0 0.0-0.3 10^3/uL Basophils # (Auto) 0.0 0.0-0.1 10^3/uL Immature Granulocyte # (Auto) 0.0 0.0-0.1 10^3/uL Neutrophils % (Manual) 37 % Lymphocytes % (Manual) 24 % Monocytes % (Manual) 12 % Band Neutrophils 27 % Macrocytosis SLIGHT Prothrombin Time 12.9 12.2-14.7 SEC INR Comment 0.9 0.8-1.4 Activated Partial Thromboplast Time 33 24-35 SEC Sodium Level 140 135-145 MMOL/L Potassium Level 4.8 3.6-5.0 MMOL/L Chloride Level 93 L 98-107 MMOL/L Carbon Dioxide Level 24 21-32 MMOL/L Anion Gap 23 H 5-14 MMOL/L Blood Urea Nitrogen 53 H 7-18 MG/DL Creatinine 1.84 H 0.60-1.30 MG/DL Estimat Glomerular Filtration Rate 31 BUN/Creatinine Ratio 29 Glucose Level 156 H 70-105 MG/DL Lactic Acid Level 1.53 0.50-2.00 MMOL/L Calcium Level 9.6 8.5-10.1 MG/DL Corrected Calcium 8.5-10.1 MG/DL Total Bilirubin 1.2 H 0.1-1.0 MG/DL Aspartate Amino Transf (AST/SGOT) 49 H 5-34 U/L Alanine Aminotransferase (ALT/SGPT) 97 H 0-55 U/L Alkaline Phosphatase 189 H 40-136 U/L Total Protein 8.9 H 6.4-8.2 GM/DL Albumin 4.6 H 3.2-4.5 GM/DL Lipase 21 8-78 U/L My Orders Orders - EBONIE TABARES Cbc With Automated Diff (12/27/21 11:00) Comprehensive Metabolic Panel (12/27/21 11:00) Blood Culture (12/27/21:00) Sputum Culture (12/27/21 11:00) Urinalysis (12/27/21:00) Urine Culture (12/27/21 11:00) Protime With Inr (12/27/21:00) Partial Thromboplastin Time (12/27/21:00) Chest 1 View, Ap/Pa Only (12/27/21 11:00) Ed Iv/Invasive Line Start (12/27/21 11:00) Ed Iv/Invasive Line Start (12/27/21 11:00) Vital Signs Adult Sepsis Patie Q15M (12/27/21 11:00) O2 (12/27/21 11:00) Remove Rings In Anticipation O (12/27/21 11:00) Lactic Acid Analyzer (12/27/21 11:00) Ns Iv 1000 Ml (Sodium Chloride 0.9%) (12/27/21 11:00) Piperacillin Sodium/Tazobactam (Zosyn Vi (12/27/21 11:00) Vancomycin Injection (Vancomycin Injecti (12/27/21 11:00) Pantoprazole Injection (Protonix Injecti (12/27/21 11:00) Fentanyl Inj (Sublimaze Injection) (12/27/21 11:00) Manual Differential (12/27/21 10:44) Lipase (12/27/21 11:53) Ed Iv/Invasive Line Start (12/27/21 11:54) Ns Iv 500 Ml (Sodium Chloride 0.9%) (12/27/21 12:00) Ct Abdomen/Pelvis Wo (12/27/21 11:54) Diatrizoate Meglum/Sodium 37% (Gastrogra (12/27/21 13:15) Morphine Injection (Morphine Injection (12/27/21 13:20) Ondansetron Injection (Zofran Injectio (12/27/21 13:30) Medications Given in ED Current Medications Medications Dose Ordered Sig/Toni Route Start Time Stop Time Status Last Admin Dose Admin Diatrizoate Meglum/ Diatrizoate Sod 120 ml ONCE ONCE PO 12/27/21 13:15 12/27/21 13:16 DC 12/27/21 13:16 50 ML Fentanyl Citrate 50 mcg ONCE ONCE IVP 12/27/21 11:00 12/27/21 11:04 DC 12/27/21 11:08 50 MCG Ondansetron HCl 8 mg ONCE ONCE IVP 12/27/21 13:30 12/27/21 13:31 DC 12/27/21 13:35 8 MG Pantoprazole 40 mg ONCE ONCE IV 12/27/21 11:00 12/27/21 11:04 DC 12/27/21 11:08 40 MG Sodium Chloride 500 ml @ 0 mls/hr Q0M ONCE IV 12/27/21 12:00 12/27/21 12:01 DC 12/27/21 13:18 0 MLS/HR Vital Signs/I&O 12/27/21 10:39 Temp 37.9 Pulse 138 Resp 17 B/P (MAP) 131/99 (110) Pulse Ox 96 O2 Delivery Nasal Cannula O2 Flow Rate 2.00 Blood Pressure Mean: 110 Progress Progress Note : Time: 12:27 Progress Note Concern for bowel obstruction. We removed 300 cc of foul fecalized gastric contents and put oral contrast in. Her GFR is only 31 so we gave her 1500 cc of fluids which is greater than 20 mL/kg to the septic work-up based on her possible infection, tachycardia. We did give her Zosyn and vancomycin but she does not have a white count or fever. 50 mcg of fentanyl did something to reduce her pain. Most of her discomfort was in her low back which is her chronic pain. I suspect she is probably not absorbing her typical opiates through her GI tract at this time. Diagnostic Imaging Diagonstic Imaging: CT (With oral contrast only) Plain Films/CT/US/NM/MRI: abdomen, pelvis Comments NAME: HERBERT XAVIER MED REC#: [id number] PT STATUS: REG ER : 1960 PHYSICIAN: EBONIE TABARES MD ADMIT DATE: 12/27/21/ER Draft Date of Exam:12/27/21 CT ABDOMEN/PELVIS WO EXAMINATION: CT abdomen and pelvis without contrast. TECHNIQUE: Multiple contiguous axial images were obtained through the abdomen and pelvis without the use of intravenous contrast. All CT scans use one or more of the following dose optimizing techniques: automated exposure control, MA and/or KvP adjustment based on patient size and exam type or iterative reconstruction. HISTORY: Bowel obstruction COMPARISON: 11/20/2019 FINDINGS: Lung bases: Bibasilar dependent atelectasis. Solid organs: The liver is normal. The gallbladder is surgically absent. There is no biliary ductal dilation. Pancreas is normal. Spleen is normal. Adrenal glands are normal. The kidneys are normal without visualized calculus or hydronephrosis. Bowel: There are multiple dilated loops of small bowel which measure up to 4.1 cm. Possible transition point within the right lower quadrant. There is diffuse dilatation of the colon with fluid seen throughout. Peritoneum: There is no intraperitoneal free fluid or free air. No suspicious lymphadenopathy. Vasculature: Calcification of the aorta without aneurysm. Musculoskeletal: No suspicious osseous lesion or compression fracture. Pelvis: The uterus is surgically absent. No adnexal mass. The urinary bladder is normal. IMPRESSION: 1. Findings concerning for small bowel obstruction with a possible transition point in the right lower quadrant. 2. Fluid distention of the colon which can be seen with diarrheal state. Dictated on workstation # [id number] Dict: 12/27/21 1330 Trans: 12/27/21 1335 [facility] [id number] Interpreted by: ADITYA MARQUEZ DO Electronically signed by: Reviewed: Reviewed by Al Diagonstic Imaging: Xray Plain Films/CT/US/NM/MRI: chest Comments [facility]. [place], [place] NAME: HERBERT XAVIER Jey MED REC#: [id number] PT STATUS: REG ER : 1960 PHYSICIAN: EBONIE TABARES MD ADMIT DATE: 12/27/21/ER Draft Date of Exam:12/27/21 CHEST 1 VIEW, AP/PA ONLY CLINICAL INDICATION: Patient with constipation. Patient has extensive GI history of surgeries. EXAM: Portable chest x-ray upright view. COMPARISON: Chest x-ray dated 08/25/2021. FINDINGS: There is a tube or drain overlying the mediastinal region. Previously patient had tubing overlying the left lung base region. There is a small left pleural effusion and mild bibasilar atelectasis versus infiltrate which has slightly progressed. There is minimal atelectasis in the right perihilar region which has slightly progressed. The remainder of the lungs are clear. There is no pneumothorax. Pulmonary vasculature and cardiac silhouette are within normal limits. Surgical clips overlying right upper quadrant. There is interval progression of air distended loops of small bowel and colon noted. Bones show no significant abnormality. IMPRESSION: 1: There is interval development of a small left pleural effusion and mild basilar atelectasis and/or infiltrate. 2: There is a drain or tube overlying the mediastinal area. Clinical correlation suggested. 3: There is interval progression of air distended loops of small bowel and colon. If there is concern for intestinal obstruction, CT scan would better evaluate. Dictated on workstation # [id number] Dict: 12/27/21 1202 Trans: 12/27/21 1212 [facility] [id number] Interpreted by: KE SARMIENTO MD Electronically signed by: Reviewed: Reviewed by Me Departure Communication (Admissions) Time/Spoke to Admitting Phy: 14:[address] Walter agrees to admit the patient for bowel obstruction with consult to surgery. She will put in orders. Time/Spoke to Consulting Phy: 13:[address] Bragg. [phone] Bragg return phone call and we reviewed imaging and he is okay with keeping her here with medical admission. Impression Primary Impression: Small bowel obstruction Disposition: HOME, SELF-CARE Condition: Stable Admissions Decision to Admit Reason: Admit from ER (General) Decision to Admit/Date: Dec 27, 2021 Time/Decision to Admit Time: 13:46 Departure-Patient Inst. Referrals: CHIQUITA RICH MD (PCP/Family) Primary Care Physician EBONIE TABARES Dec 27, 2021 11:31
[2021-12-27 11:52] LABS: BAND NEUTROPHILS 27 %; LYMPHOCYTES % (MANUAL) 24 %; MONOCYTES % (MANUAL) 12 %; NEUTROPHILS % (MANUAL) 37 %
[2021-12-27] MEDS ORDERED: NS IV 500 ML 500 ML IV ONE (12:00)
--- NOTE | 2021-12-27 12:12 | Diagnostic Imaging Report ---
CLINICAL INDICATION: Patient with constipation. Patient has extensive GI history of surgeries. EXAM: Portable chest x-ray upright view. COMPARISON: Chest x-ray dated 08/25/2021. FINDINGS: There is a tube or drain overlying the mediastinal region. Previously patient had tubing overlying the left lung base region. There is a small left pleural effusion and mild bibasilar atelectasis versus infiltrate which has slightly progressed. There is minimal atelectasis in the right perihilar region which has slightly progressed. The remainder of the lungs are clear. There is no pneumothorax. Pulmonary vasculature and cardiac silhouette are within normal limits. Surgical clips overlying right upper quadrant. There is interval progression of air distended loops of small bowel and colon noted. Bones show no significant abnormality. IMPRESSION: 1: There is interval development of a small left pleural effusion and mild basilar atelectasis and/or infiltrate. 2: There is a drain or tube overlying the mediastinal area. Clinical correlation suggested. 3: There is interval progression of air distended loops of small bowel and colon. If there is concern for intestinal obstruction, CT scan would better evaluate. Dictated by: Dictated on workstation # [id number]
[2021-12-27] MEDS ORDERED: DIATRIZOATE MEGLUM/SODIUM 37% 120 ML (GASTROGRAFIN) PO ONE (13:15)
[2021-12-27] MEDS ORDERED: morphine INJ 10 MG/ML 1ML (SYR OR VIAL) IVP STA (13:20)
[2021-12-27] MEDS ORDERED: ONDANSETRON 4 MG/2 ML (SDV) Z0FRAN IVP ONE (13:30)
--- NOTE | 2021-12-27 13:36 | Diagnostic Imaging Report ---
EXAMINATION: CT abdomen and pelvis without contrast. TECHNIQUE: Multiple contiguous axial images were obtained through the abdomen and pelvis without the use of intravenous contrast. All CT scans use one or more of the following dose optimizing techniques: automated exposure control, MA and/or KvP adjustment based on patient size and exam type or iterative reconstruction. HISTORY: Bowel obstruction COMPARISON: 11/20/2019 FINDINGS: Lung bases: Bibasilar dependent atelectasis. Solid organs: The liver is normal. The gallbladder is surgically absent. There is no biliary ductal dilation. Pancreas is normal. Spleen is normal. Adrenal glands are normal. The kidneys are normal without visualized calculus or hydronephrosis. Bowel: There are multiple dilated loops of small bowel which measure up to 4.1 cm. Possible transition point within the right lower quadrant. There is diffuse dilatation of the colon with fluid seen throughout. Peritoneum: There is no intraperitoneal free fluid or free air. No suspicious lymphadenopathy. Vasculature: Calcification of the aorta without aneurysm. Musculoskeletal: No suspicious osseous lesion or compression fracture. Pelvis: The uterus is surgically absent. No adnexal mass. The urinary bladder is normal. IMPRESSION: 1. Findings concerning for small bowel obstruction with a possible transition point in the right lower quadrant. 2. Fluid distention of the colon which can be seen with diarrheal state. Dictated by: Dictated on workstation # [id number]
[2021-12-27] MEDS ORDERED: PATIENT MAY USE OWN MEDS, ALL PO SCH (16:00)
[2021-12-27] MEDS ORDERED: PHARMACY TO DOSE SQ SCH (16:00)
[2021-12-27] MEDS ORDERED: NALOXONE 0.4 MG/ML 1 ML (NARCAN) VIAL IV PRN (16:00)
--- NOTE | 2021-12-27 16:29 | Consultation - Surgery ---
JOSH MYLES 12/27/21 1629: History of Present Illness History of Present Illness Patient Consulted On([place]/time) 12/27/21 16:24 Date Seen by Provider: Dec 27, 2021 Time Seen by Provider: 16:24 Reason for Visit: Small Bowel Obstruction History of Present Illness Patient is a 61 year old female who presented to [facility] ER with worsening abdominal pain and distention that started around one week ago. Patient states that initially she just felt "a little constipated". Patient states that she has be en having small bowel movements throughout the past week and so initially she didn't think she had an obstruction. Her pain and distention got worse, so she decided to go the ER. Patient states she has had intermittent nausea, but they gave her zofran in the ER and it seemed to help. In the ER patient had a CT scan showing a possible transition point in the right lower quadrant. 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 She currently takes all of her feedings through her gastric tube. Patient is currently seen by "Dr. Strange" at , who plans on reversing the esophageal diversion when the patient gets her strength back. Patient has been having some leaking from her gastric tube, and states that this has been going on for awhile. Patient states that since arriving to the ER she has not had a bowel movement. Allergies and Home Medications Allergies Coded Allergies: codeine (Unverified Adverse Reaction, Unknown, 09/03/18) severe stomach pain Patient Home Medication List Fentanyl (Fentanyl Patch 25 MCG) 1 Each Patch.td72, 25 MCG TD Q72H Prescribed by: BISHOP VAN on 11/25/19 1008 Hydrocodone/Acetaminophen (Hydrocodone-Acetamn 7.5-325/15) 118 Ml Solution, 20 ML PEG Q6H PRN for PAIN-MODERATE Prescribed by: BISHOP VAN on 11/25/19 1008 Lorazepam (Ativan) 0.5 Mg Tablet, 0.5 MG SL Q6H PRN for AGITATION Prescribed by: BISHOP VAN on 11/25/19 1008 Melatonin (Melatonin) 3 Mg Tablet, 3 MG PO HS PRN for SLEEP, (Reported) Entered as Reported by: ROSANA GUILLEN on 04/30/19 1000 Metoclopramide HCl (Reglan) 10 Mg Tablet, 10 MG PO QIDPCHS PRN for NAUSEA/VOMITING-3RD LINE, (Reported) Entered as Reported by: CHRISTIE MEANS on 11/21/19 1518 Prochlorperazine Maleate (Prochlorperazine Maleate) 10 Mg Tablet, 10 MG PO Q4H PRN for NAUSEA/VOMITING-4TH LINE, (Reported) Entered as Reported by: CHRISTIE MEANS on 11/21/19 1518 Promethazine HCl (Promethazine Tablet) 25 Mg Tablet, 25 MG PO Q3HR PRN for NAUSEA/VOMITING Prescribed by: ROHAN MONTES on 11/25/19 1506 Sulfamethoxazole/Trimethoprim (Sulfamethoxazole-Tmp Susp 200MG/40MG/5ML) 473 Ml Oral.susp, 20 ML PO BID Prescribed by: BRAYDON LYLES on 05/21/21 1541 Past Xdmtsjk-Gttktr-Jinoih Hx Patient Social History Smoking Status: Never a Smoker 2nd Hand Smoke Exposure: No Recent Hopitalizations: No Alcohol Use?: No Have you traveled recently?: No Immunizations Up To Date Tetanus Booster (TDap): Unknown Date of Pneumonia Vaccine: Sep 18, 2019 Date of Influenza Vaccine: Nov 15, 2019 Seasonal Allergies Seasonal Allergies: Yes Surgeries History of Surgeries: Yes (GASTRIC TUBE) Surgeries: Abdominal, Gallbladder, Hysterectomy Respiratory History of Respiratory Disorde: Yes Respiratory Disorders: Asthma (Uses nebulizer at home; albuterol) Cardiovascular History of Cardiac Disorders: Yes Cardiac Disorders: Hypertension Neurological History of Neurological Disord: No 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 System Hx 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 Disorders: No Sexually Transmitted Disease: No HIV/AIDS: No Female 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 Disorders: Denies [employer] History: Hysterectomy Genitourinary History of Genitourinary Disor: No Gastrointestinal History of Gastrointestinal Di: Yes (Blind esophagus, G-tube, J-tube) Gastrointestinal Disorders: Gastroesophageal Reflux, Hiatal Hernia Musculoskeletal History of Musculoskeletal Dis: Yes Musculoskeletal Disorders: Chronic Back Pain Endocrine History of Endocrine Disorders: No HEENT History of HEENT Disorders: No Loss of Vision: Bilateral Hearing Impairment: Denies Cancer History of Cancer: No Psychosocial History of Psychiatric Problem: No Integumentary History of Skin or Integumenta: No Blood Transfusions History of Blood Disorders: No Adverse Reaction to a Blood Tr: No Family Medical History Significant Family History: Heart Disease (Mother's side) Family Medial History: Hypertension 19 FATHER G8 SISTER Review of Systems-General Constitutional: No chills, No diaphoresis Respiratory: cough (chronic due to secretions and blind esophagous), short of breath (currently on 3L O2) Cardiovascular: No chest pain, No palpitations Gastrointestinal: abdominal pain (Umbilical ), constipation, nausea Genitourinary: No dysuria, No frequency Musculoskeletal: back pain (chronic) Physical Exam-General Problems Physical Exam Vital Signs Vital Signs - First Documented Capillary Refill : Less Than 3 Seconds General Appearance: WD/WN, no apparent distress HEENT: PERRL/EOMI Neck: supple Respiratory: chest non-tender, no respiratory distress, no accessory muscle use Cardiovascular: normal peripheral pulses, regular rate, rhythm Gastrointestinal: distended, tenderness, other (Gastric tube LUQ, has leaking around tubing, skin around tubing appears chronically irritated ) Rectal: deferred Extremities: non-tender, no pedal edema, no calf tenderness Neurologic/Psychiatric: alert, oriented x 3 Skin: normal color, warm/dry Data Review Labs Laboratory Tests 12/27/21 10:44: White Blood Count 5.2, Red Blood Count 5.06, Hemoglobin 16.9H, Hematocrit 53H, Mean Corpuscular Volume 105H, Mean Corpuscular Hemoglobin 33, Mean Corpuscular Hemoglobin Concent 32, Red Cell Distribution Width 12.2, Platelet Count 488H, Mean Platelet Volume 9.2, Immature Granulocyte % (Auto) 0, Neutrophils (%) (Auto) 62, Lymphocytes (%) (Auto) 25, Monocytes (%) (Auto) 12, Eosinophils (%) (Auto) 1, Basophils (%) (Auto) 1, Neutrophils # (Auto) 3.2, Lymphocytes # (Auto) 1.3, Monocytes # (Auto) 0.6, Eosinophils # (Auto) 0.0, Basophils # (Auto) 0.0, Immature Granulocyte # (Auto) 0.0, Neutrophils % (Manual) 37, Lymphocytes % (Manual) 24, Monocytes % (Manual) 12, Band Neutrophils 27, Macrocytosis SLIGHT, Prothrombin Time 12.9, INR Comment 0.9, Activated Partial Thromboplast Time 33, Sodium Level 140, Potassium Level 4.8, Chloride Level 93L, Carbon Dioxide Level 24, Anion Gap 23H, Blood Urea Nitrogen 53H, Creatinine 1.84H, Estimat Glomerular Filtration Rate 31, BUN/Creatinine Ratio 29, Glucose Level 156H, Lactic Acid Level 1.53, Calcium Level 9.6, Corrected Calcium , Total Bilirubin 1.2H, Aspartate Amino Transf (AST/SGOT) 49H, Alanine Aminotransferase (ALT/SGPT) 97H, Alkaline Phosphatase 189H, Total Protein 8.9H, Albumin 4.6H, Lipase 21 Assessment/Plan Assessment/Plan Admission Diagonsis Abdominal pain SBO Assessment/Plan Assessment Small Bowel Obstruction Hypochloremia Extensive history of abdominal surgery with gastric tube placement Hypertension Tachycardia Chronic low back pain Asthma Plan Make patient NPO IVF Repeat imaging tomorrow Continue Zofran for nausea control Fentanyl patch for pain management Breathing treatments TODD SANTIAGO DO 12/28/21 0907: History of Present Illness History of Present Illness Time Seen by Provider: 15:04 History of Present Illness Surgery asked to consult regarding small bowel obstruction. HPI per ED: Patient to the ER by EMS from home with chief complaint she is having about a week of progressively worsening abdominal distention, fecalizatio n around her gastrostomy tube. No Fever, Nausea. Not passing stools or gas. Hx of hyst, hiatal hernia surgery that resulted and esophagus not being hooked up to stomach. She has a PEG tube in and was doing her feeds on a pump overnight but is not sure how much she actually got in. She did take some pain medicine through her gastrostomy tube prior to coming in this morning and does not feel like it is controlling her chronic low back pain. She does not have a history of bowel obstruction but she does have chronic constipation. She has been taken laxatives in the past week. No enemas. When I saw pt and her daughter, they stated her belly is usually never this big. They stated she has been "constipated" lately and nothing is helping that. Abd pain has increased with the distention and constipation. It is an "all over" abdominal pain. She normally does walk around her house a little and has been trying to do some PT. Allergies and Home Medications Allergies Coded Allergies: codeine (Unverified Adverse Reaction, Unknown, 09/03/18) severe stomach pain Patient Home Medication List Home Medication List Reviewed: Yes Fentanyl (Fentanyl Patch 25 MCG) 1 Each Patch.td72, 25 MCG TD Q72H Prescribed by: BISHOP VAN on 11/25/19 1008 Hydrocodone/Acetaminophen (Hydrocodone-Acetamn 7.5-325/15) 118 Ml Solution, 20 ML PEG Q6H PRN for PAIN-MODERATE Prescribed by: BISHOP VAN on 11/25/19 1008 Lorazepam (Ativan) 0.5 Mg Tablet, 0.5 MG SL Q6H PRN for AGITATION Prescribed by: BISHOP VAN on 11/25/19 1008 Melatonin (Melatonin) 3 Mg Tablet, 3 MG PO HS PRN for SLEEP, (Reported) Entered as Reported by: ROSANA GUILLEN on 04/30/19 1000 Metoclopramide HCl (Reglan) 10 Mg Tablet, 10 MG PO QIDPCHS PRN for NAUSEA/VOMITING-3RD LINE, (Reported) Entered as Reported by: CHRISTIE MEANS on 11/21/19 1518 Prochlorperazine Maleate (Prochlorperazine Maleate) 10 Mg Tablet, 10 MG PO Q4H PRN for NAUSEA/VOMITING-4TH LINE, (Reported) Entered as Reported by: CHRISTIE MEANS on 11/21/19 1518 Promethazine HCl (Promethazine Tablet) 25 Mg Tablet, 25 MG PO Q3HR PRN for NAUSEA/VOMITING Prescribed by: ROHAN MONTES on 11/25/19 1506 Sulfamethoxazole/Trimethoprim (Sulfamethoxazole-Tmp Susp 200MG/40MG/5ML) 473 Ml Oral.susp, 20 ML PO BID Prescribed by: BRAYDON LYLES on 05/21/21 1541 Past Eehzmyn-Nudqdf-Xotbyr Hx Patient Social History Smoking Status: Never a Smoker Alcohol Use?: No Surgeries History of Surgeries: Yes (J-tube placement, partial Esophagectomy) Surgeries: Abdominal (multiple abd), Gallbladder, Hysterectomy Respiratory History of Respiratory Disorde: Yes Respiratory Disorders: Asthma (Uses nebulizer at home; albuterol) Cardiovascular History of Cardiac Disorders: No Neurological History of Neurological Disord: No Genitourinary History of Genitourinary Disor: No Gastrointestinal History of Gastrointestinal Di: Yes Gastrointestinal Disorders: Obstructive Bowel Musculoskeletal History of Musculoskeletal Dis: Yes Musculoskeletal Disorders: Arthritis, Chronic Back Pain HEENT History of HEENT Disorders: No Loss of Vision: Denies Hearing Impairment: Denies Cancer History of Cancer: No Psychosocial History of Psychiatric Problem: Yes Behavioral Health Disorders: Depression Family Medical History Significant Family History: Heart Disease (Mother's side) Family Medial History: Hypertension 19 FATHER G8 SISTER Review of Systems-General Constitutional: No chills, No diaphoresis; malaise, weakness EENTM: No blurred vision, No mouth swelling, No epistaxis Respiratory: cough (chronic due to secretions and blind esophagous), short of breath (currently on 3L O2) Cardiovascular: No chest pain, No palpitations Gastrointestinal: abdominal pain (Umbilical ), constipation, nausea, other (abdominal distention) Musculoskeletal: No back pain (chronic); muscle stiffness, muscle weakness Skin: No change in color, No change in hair/nails Psychiatric/Neurological: Denies Anxiety; Depressed; Denies Seizure Physical Exam-General Problems Physical Exam General Appearance: WD/WN, mild distress, obese Eyes: Bilateral Eye PERRL, Bilateral Eye EOMI HEENT: pharynx normal; No scleral icterus (R), No scleral icterus (L) Neck: non-tender, supple Respiratory: chest non-tender, lungs clear, no respiratory distress, no accessory muscle use Cardiovascular: regular rate, rhythm, no murmur Gastrointestinal: distended, tenderness (diffusely), other (J tube LUQ, has leaking around tubing, skin around tubing appears chronically irritated ) Rectal: deferred Extremities: non-tender, no pedal edema, no calf tenderness Neurologic/Psychiatric: alert, oriented x 3, depressed affect Skin: normal color, warm/dry Lymphatic: no adenopathy (neck, axilla or groin) Data Review Radiology Date of Exam:12/27/21 CT ABDOMEN/PELVIS WO EXAMINATION: CT abdomen and pelvis without contrast. TECHNIQUE: Multiple contiguous axial images were obtained through the abdomen and pelvis without the use of intravenous contrast. All CT scans use one or more of the following dose optimizing techniques: automated exposure control, MA and/or KvP adjustment based on patient size and exam type or iterative reconstruction. HISTORY: Bowel obstruction COMPARISON: 11/20/2019 FINDINGS: Lung bases: Bibasilar dependent atelectasis. Solid organs: The liver is normal. The gallbladder is surgically absent. There is no biliary ductal dilation. Pancreas is normal. Spleen is normal. Adrenal glands are normal. The kidneys are normal without visualized calculus or hydronephrosis. Bowel: There are multiple dilated loops of small bowel which measure up to 4.1 cm. Possible transition point within the right lower quadrant. There is diffuse dilatation of the colon with fluid seen throughout. Peritoneum: There is no intraperitoneal free fluid or free air. No suspicious lymphadenopathy. Vasculature: Calcification of the aorta without aneurysm. Musculoskeletal: No suspicious osseous lesion or compression fracture. Pelvis: The uterus is surgically absent. No adnexal mass. The urinary bladder is normal. IMPRESSION: 1. Findings concerning for small bowel obstruction with a possible transition point in the right lower quadrant. 2. Fluid distention of the colon which can be seen with diarrheal state. Dictated by: Dictated on workstation # [id number] Dict: 12/27/21 1330 Trans: 12/27/21 1337 CV [id number] Interpreted by: ADITYA MARQUEZ DO Electronically signed by: ADITYA MARQUEZ DO 12/27/21 133 Assessment/Plan Assessment/Plan Assessment/Plan Partial Small Bowel Obstruction Hypochloremia Extensive history of abdominal surgery with Jejunostomy tube placement Hypertension Tachycardia Chronic low back pain Asthma Plan NPO, IVF, Repeat Abd Xray tomorrow to check on progress of contrast Continue Zofran for nausea control, Fentanyl patch for pain management Breathing treatments PRN Supervisory-Addendum Brief Verification & Attestation Participated in pt care: history, MDM, physical Personally performed: exam, history, MDM, supervision of care Care discussed with: Medical Student Procedures: n/a Verification and Attestation of Medical Student E/M Service A medical student performed and documented this service. I then reviewed and verified all information documented by the medical student and made modifications to such information, when appropriate. I personally performed a physical exam, medical decision making and then discussed any differences between the notes and made revisions as necessary to create one note. Todd Cr , 12/28/21 , 09:11 JOSH MYLES Dec 27, 2021 16:29 TODD CR DO Dec 28, 2021 09:07
[2021-12-27] MEDS ORDERED: ENOXAPARIN INJECTION 30 MG/0.3 ML SYR SC SCH (16:30)
[2021-12-27] MEDS: morphine INJ 4 MG/ML 1 ML (VIAL/SYRINGE) IV PRN ×2 (16:36→21:06)
[2021-12-27] MEDS: NS IV 1000 ML 1,000 ML IV SCH (16:40)
[2021-12-27 19:51] VITALS: BP 133/77
[2021-12-27] MEDS ORDERED: RT-ALBUTEROL/IPRATROPIUM 3 ML (DUONEB) VIAL ONE (21:27)
[2021-12-27] MEDS ORDERED: RT-ALBUTEROL/IPRATROPIUM 3 ML (DUONEB) VIAL INH PRN (21:30)
[2021-12-27 23:33] VITALS: BP 134/88
[2021-12-28] MEDS: NS IV 1000 ML 1,000 ML IV SCH ×5 (00:48→21:25)
[2021-12-28] MEDS: morphine INJ 4 MG/ML 1 ML (VIAL/SYRINGE) IV PRN ×6 (00:49→21:25)
[2021-12-28] MEDS: RT-ALBUTEROL/IPRATROPIUM 3 ML (DUONEB) VIAL INH SCH ×3 (02:44→22:09)
[2021-12-28 05:00] VITALS: BP 121/82
[2021-12-28 06:00] LABS: BASOPHILS % (AUTO) 1 % (0-10); EOSINOPHILS # (AUTO) 0.1 10^3/uL (0.0-0.3); EOSINOPHILS % (AUTO) 1 % (0-10); HEMATOCRIT 41 % (35-52); LYMPHOCYTES # (AUTO) 1.5 10^3/uL (1.0-4.0); LYMPHOCYTES % (AUTO) 23 % (12-44); MEAN CORPUSCULAR HEMOGLOBIN 34 pg (25-34); MEAN CORPUSCULAR HGB CONC 32 g/dL (32-36); MEAN CORPUSCULAR VOLUME 107 fL (80-99); MONOCYTES # (AUTO) 0.8 10^3/uL (0.0-1.0); MONOCYTES % (AUTO) 12 % (0-12); NEUTROPHILS # (AUTO) 3.9 10^3/uL (1.8-7.8); NEUTROPHILS % (AUTO) 62 % (42-75); PLATELET COUNT 316 10^3/uL (130-400); WHITE BLOOD COUNT 6.3 10^3/uL (4.3-11.0)
[2021-12-28 06:10] LABS: ALBUMIN 3.4 GM/DL (3.2-4.5); POTASSIUM 4.3 MMOL/L (3.6-5.0)
[2021-12-28 06:11] LABS: CALCIUM 8.3 MG/DL (8.5-10.1)
[2021-12-28 06:12] LABS: TOTAL PROTEIN 6.2 GM/DL (6.4-8.2)
[2021-12-28 06:14] LABS: BILIRUBIN,TOTAL 0.7 MG/DL (0.1-1.0)
[2021-12-28 06:16] LABS: CREATININE SERUM 0.88 MG/DL (0.60-1.30)
[2021-12-28 07:50] VITALS: BP 115/60
--- NOTE | 2021-12-28 08:02 | Progress Note - Surgery ---
JOSH MYLES 12/28/21 0802: Subjective Date Seen by a Provider: Dec 28, 2021 Time Seen by a Provider: 07:40 Subjective/Events-last exam Patient states she feels slightly better today than yesterday. Still having bouts of nausea. Did have one small bowel movement yesterday. States she has not been passing flatus. Patient states she is now having some trouble with urination as well. Stating it ng when she urinates and she feels like she is not voiding fully. Patient states she has a history with urinary retention and has had to have a catheter placed in the past after her surgeries. Patient is currently on room air. Review of Systems HEENT: No Head Aches, No Visual Changes Pulmonary: No Dyspnea; Cough (chronic; 2/2 mucous secretions and blind esophagus ) Cardiovascular: No: Chest Pain, Palpitations Gastrointestinal: Nausea, Abdominal Pain (RLQ and LLQ); No: Vomiting Genitourinary: Dysuria, Retention (Feels like not voiding fully), Other (Suprapubic pain) Focused Exam Lactate Level 12/27/21 10:44: Lactic Acid Level 1.53 Objective Exam Vital Signs Date Time Temp Pulse Resp B/P (MAP) Pulse Ox O2 Delivery O2 Flow Rate FiO2 12/28/21 07:50 36.0 90 18 115/60 (78) 97 Nasal Cannula 2.00 12/28/21 05:00 36.2 97 18 121/82 (95) 96 Nasal Cannula 2.00 12/28/21 02:44 94 Nasal Cannula 2.00 12/27/21 23:33 36.0 121 16 134/88 (103) 94 Nasal Cannula 2.00 12/27/21 23:13 35.7 124 91 21 12/27/21 20:01 91 Room Air 12/27/21 19:51 35.7 124 18 133/77 (95) 91 Room Air 12/27/21 16:15 Nasal Cannula 2.00 12/27/21 15:42 115 22 144/93 96 Nasal Cannula 2.00 12/27/21 10:39 Nasal Cannula 2.00 12/27/21 10:39 37.9 138 17 131/99 (110) 96 Nasal Cannula 2.00 I & O 12/28/21 07:00 Intake Total 1500 ml Balance 1500 ml Capillary Refill : Less Than 3 Seconds General Appearance: No Apparent Distress, WD/WN Neck: Non Tender, Supple Respiratory: Chest Non Tender, No Accessory Muscle Use, No Respiratory Distress, Decreased Breath Sounds (Lower lobes) Cardiovascular: Regular Rate, Rhythm, Normal Peripheral Pulses Peripheral Pulses: 2+ Radial Pulses (R), 2+ Radial Pulses (L) Gastrointestinal: distended, tenderness, other (Gastric tube LUQ, has leaking around tubing, skin around tubing appears chronically irritated ) Extremity: Non Tender, No Calf Tenderness, No Pedal Edema Neurologic/Psychiatric: Alert, Oriented x3, Depressed Affect Skin: Normal Color, Warm/Dry Results Lab Laboratory Tests 12/27/21 10:44: White Blood Count 5.2, Red Blood Count 5.06, Hemoglobin 16.9H, Hematocrit 53H, Mean Corpuscular Volume 105H, Mean Corpuscular Hemoglobin 33, Mean Corpuscular Hemoglobin Concent 32, Red Cell Distribution Width 12.2, Platelet Count 488H, Mean Platelet Volume 9.2, Immature Granulocyte % (Auto) 0, Neutrophils (%) (Auto) 62, Lymphocytes (%) (Auto) 25, Monocytes (%) (Auto) 12, Eosinophils (%) (Auto) 1, Basophils (%) (Auto) 1, Neutrophils # (Auto) 3.2, Lymphocytes # (Auto) 1.3, Monocytes # (Auto) 0.6, Eosinophils # (Auto) 0.0, Basophils # (Auto) 0.0, Immature Granulocyte # (Auto) 0.0, Neutrophils % (Manual) 37, Lymphocytes % (Manual) 24, Monocytes % (Manual) 12, Band Neutrophils 27, Macrocytosis SLIGHT, Prothrombin Time 12.9, INR Comment 0.9, Activated Partial Thromboplast Time 33, Sodium Level 140, Potassium Level 4.8, Chloride Level 93L, Carbon Dioxide Level 24, Anion Gap 23H, Blood Urea Nitrogen 53H, Creatinine 1.84H, Estimat Glomerular Filtration Rate 31, BUN/Creatinine Ratio 29, Glucose Level 156H, Lactic Acid Level 1.53, Calcium Level 9.6, Corrected Calcium , Total Bilirubin 1.2H, Aspa rtate Amino Transf (AST/SGOT) 49H, Alanine Aminotransferase (ALT/SGPT) 97H, Alkaline Phosphatase 189H, Total Protein 8.9H, Albumin 4.6H, Lipase 21 12/28/21 05:44: White Blood Count 6.3, Red Blood Count 3.86, Hemoglobin 13.0#, Hematocrit 41, Mean Corpuscular Volume 107H, Mean Corpuscular Hemoglobin 34, Mean Corpuscular Hemoglobin Concent 32, Red Cell Distribution Width 12.1, Platelet Count 316, Mean Platelet Volume 9.0, Immature Granulocyte % (Auto) 0, Neutrophils (%) (Auto) 62, Lymphocytes (%) (Auto) 23, Monocytes (%) (Auto) 12, Eosinophils (%) (Auto) 1, Basophils (%) (Auto) 1, Neutrophils # (Auto) 3.9, Lymphocytes # (Auto) 1.5, Monocytes # (Auto) 0.8, Eosinophils # (Auto) 0.1, Basophils # (Auto) 0.0, Immature Granulocyte # (Auto) 0.0, Sodium Level 141, Potassium Level 4.3, Chloride Level 103, Carbon Dioxide Level 24, Anion Gap 14, Blood Urea Nitrogen 45H, Creatinine 0.88, Estimat Glomerular Filtration Rate 76, BUN/Creatinine Ratio 51, Glucose Level 102, Calcium Level 8.3L, Corrected Calcium 8.8, Total Bilirubin 0.7, Aspartate Amino Transf (AST/SGOT) 23, Alanine Aminotransferase (ALT/SGPT) 54, Alkaline Phosphatase 122, Total Protein 6.2L, Albumin 3.4 Assessment/Plan Assessment/Plan Assessment/Plan Assessment Small Bowel Obstruction Suprapubic pain w/ painful urination and feelings of incomplete voiding Hypochloremia, resolved Extensive history of abdominal surgery with gastric tube placement Hypertension Tachycardia , intermittent, currently not Chronic low back pain Asthma Plan Continue NPO IVF Urinalyisis with culture and if positive susceptibility testing Repeat imaging tomorrow Continue Zofran for nausea control Pain management Breathing treatments CHRISTO SANTIAGO DO 12/28/21 1545: Subjective Time Seen by a Provider: 11:33 Subjective/Events-last exam Pt seen and examined, no changes....still distended with abdominal pain. She has chronic pain and is also asking for her Fentanyl patch. Does not appear to be in any distress when talking to me. Review of Systems General: Fatigue, Malaise Pulmonary: No Dyspnea; Cough (chronic; 2/2 mucous secretions and blind esophagus ) Cardiovascular: No: Chest Pain, Palpitations Gastrointestinal: Nausea, Abdominal Pain (RLQ and LLQ); No: Vomiting Genitourinary: Dysuria, Retention (Feels like not voiding fully), Other (Suprapubic pain) Objective Exam General Appearance: No Apparent Distress, WD/WN Respiratory: Chest Non Tender, No Accessory Muscle Use, No Respiratory Distress, Decreased Breath Sounds (Lower lobes) Cardiovascular: Regular Rate, Rhythm, Normal Peripheral Pulses Gastrointestinal: distended (tense), tenderness, other (Gastric tube LUQ, has leaking around tubing, skin around tubing appears chronically irritated ) Assessment/Plan Assessment/Plan Assessment/Plan Partial Small Bowel Obstruction Suprapubic pain w/ painful urination and feelings of incomplete voiding Hypochloremia, resolved Extensive history of abdominal surgery with Jejunostomy tube placement Hypertension Tachycardia , intermittent, currently not Chronic low back pain Asthma Plan Continue NPO, IVF Urinalyisis with culture and if positive susceptibility testing Repeat imaging tomorrow Continue Zofran for nausea control Pain management Breathing treatments PRN I gave pt a few options; 1) do nothing and see if it resolves 2) give it another day or so and then go to surgery 3) go to surgery today 4) I also told her I would try and get a hold of her [facility] surgeon for an opinion, he may want her to go up there, or she could go on her own. I reviewed the Abd Flat plate and unforutnately the contrast has not moved; plus, I think the air and distention is worse. My feeling is she will eventually need surgery during this visit. Supervisory-Addendum Brief Verification & Attestation Participated in pt care: history, MDM, physical Personally performed: exam, history, MDM, supervision of care Care discussed with: Medical Student Procedures: n/a Verification and Attestation of Medical Student E/M Service A medical student performed and documented this service. I then reviewed and verified all information documented by the medical student and made modifications to such information, when appropriate. I personally performed a physical exam, medical decision making and then discussed any differences between the notes and made revisions as necessary to create one note. Christo Cr , 12/28/21 , 15:46 JOSH MYLES Dec 28, 2021 08:02 CHRISTO CR DO Dec 28, 2021 15:45
[2021-12-28] MEDS: ONDANSETRON 4 MG/2 ML (SDV) Z0FRAN IVP PRN ×2 (09:04→16:03)
--- NOTE | 2021-12-28 09:07 | Diagnostic Imaging Report ---
EXAM: ABDOMEN/KUB 1VIEW INDICATION: Abdominal pain. COMPARISON: CT abdomen and pelvis without contrast 12/27/2021. FINDINGS: There remains gaseous distention involving loops of both small bowel and colon. There is residual contrast in the small bowel. Some of this contrast has reached the rectum. Cholecystectomy clips. No acute osseous findings. IMPRESSION: Gaseous distention of loops of small bowel and colon have improved compared to yesterday's CT. There remains enteric contrast within the proximal small bowel. However, some of this contrast has also reached the rectum. Dictated by: Dictated on workstation # [id number]
--- NOTE | 2021-12-28 10:05 | History & Physical ---
HPI History of Present Illness: 61 yo female with history of complications after hiatal hernia surgery now with blind esophagus and drain for esophagus out of neck and J tube. She has noted that the there is leaking on her bandages around her tube x 1 week, abdominal pain now. Small bowel movement since admit, doesn't recall last one prior. No vomiting. Chronic congestion. Cough and shortness of breath for "a while". Denies fever. Last saw Dr. Escobar "a while ago", maybe a year, doesn't remember, surgeon in [place] with . She reports being on fentanyl patches for chronic pain, but last refill was in Dec for one month supply. Oxycodone has been filled regularly. Source: patient Date seen by provider: Dec 28, 2021 Time Seen by Provider: 10:00 Attending Physician Lurdes Partida MD PCP Jos Snow MD Consult Date of Admission Dec 27, 2021 at 14:50 Home Medications Home Medications Reviewed patient Home Medication Reconciliation performed by pharmacy medication reconciliations veterinary technician instructor and/or nursing. Patients Allergies have been reviewed. Allergies Coded Allergies: codeine (Unverified Adverse Reaction, Unknown, 09/03/18) severe stomach pain [id number] Hx Patient Social History Smoking Status: Never a Smoker 2nd Hand Smoke Exposure: No Recent Hopitalizations: No Alcohol Use?: No Have you traveled recently?: No Immunizations Up To Date Tetanus Booster (TDap): Unknown First/Initial COVID19 Vaccinat: 09/24/2021 Second COVID19 Vaccination Kedar: 11/16/2021 COVID19 Vaccine Emergency Department Rn: [facility]avian Past Medical History PMHx: Asthma Depression Anxiety SurgHx: Cholecystectomy Hysterectomy Paraesophageal hernia repair with incarcerated transverse colon and tail of pancreas 02/2016 Ventral hernia repair with mesh 05/2016 EGD showing recurrent paraesophgeal hernia 07/2018 (referred to [facility]) Repeat paraesophageal hernia repair 11/14/2018 in [place] Left pneumonothorax with chest tube placement 11/23/2018 Bronchoscopy 12/06/2018 EGD noting severe esophageal stricutre with microperforation 01/08/2019 (transferred to ) T tube placement at , gastric and jejeunostomy tubes placed, discharged on hospice not wanting major interventions T tube lost and readmitted 04/2020 to and had EGD and tube placement, enteral feedings started per jejunostomy portion with gastrostomy portion to drainage Cervical esophagostomy placed 05/04/2020 at Family Medical History Significant Family History: Heart Disease (Mother's side) Family History: Hypertension 19 FATHER G8 SISTER Review of Systems ([facility]) Constitutional: No fever EENTM: nose congestion; No throat pain Respiratory: short of breath Gastrointestinal: abdominal pain, nausea; No vomiting Genitourinary: dysuria (this morning) Musculoskeletal: No joint pain, No muscle pain Skin: No rash Psychiatric/Neurological: Anxiety, Depressed Reviewed Test Results Reviewed Test Results Lab Laboratory Tests Test 12/27/21 10:44 12/28/21 05:44 Range/Units White Blood Count 5.2 6.3 4.3-11.0 10^3/uL Red Blood Count 5.06 3.86 3.80-5.11 10^6/uL Hemoglobin 16.9 H 13.0 # 11.5-16.0 g/dL Hematocrit 53 H 41 35-52 % Mean Corpuscular Volume 105 H 107 H 80-99 fL Mean Corpuscular Hemoglobin 33 34 25-34 pg Mean Corpuscular Hemoglobin Concent 32 32 32-36 g/dL Red Cell Distribution Width 12.2 12.1 10.0-14.5 % Platelet Count 488 H 316 130-400 10^3/uL Mean Platelet Volume 9.2 9.0 9.0-12.2 fL Immature Granulocyte % (Auto) 0 0 % Neutrophils (%) (Auto) 62 62 42-75 % Lymphocytes (%) (Auto) 25 23 12-44 % Monocytes (%) (Auto) 12 12 0-12 % Eosinophils (%) (Auto) 1 1 0-10 % Basophils (%) (Auto) 1 1 0-10 % Neutrophils # (Auto) 3.2 3.9 1.8-7.8 10^3/uL Lymphocytes # (Auto) 1.3 1.5 1.0-4.0 10^3/uL Monocytes # (Auto) 0.6 0.8 0.0-1.0 10^3/uL Eosinophils # (Auto) 0.0 0.1 0.0-0.3 10^3/uL Basophils # (Auto) 0.0 0.0 0.0-0.1 10^3/uL Immature Granulocyte # (Auto) 0.0 0.0 0.0-0.1 10^3/uL Neutrophils % (Manual) 37 % Lymphocytes % (Manual) 24 % Monocytes % (Manual) 12 % Band Neutrophils 27 % Macrocytosis SLIGHT Prothrombin Time 12.9 12.2-14.7 SEC INR Comment 0.9 0.8-1.4 Activated Partial Thromboplast Time 33 24-35 SEC Sodium Level 140 141 135-145 MMOL/L Potassium Level 4.8 4.3 3.6-5.0 MMOL/L Chloride Level 93 L 103 98-107 MMOL/L Carbon Dioxide Level 24 24 21-32 MMOL/L Anion Gap 23 H 14 5-14 MMOL/L Blood Urea Nitrogen 53 H 45 H 7-18 MG/DL Creatinine 1.84 H 0.88 0.60-1.30 MG/DL Estimat Glomerular Filtration Rate 31 76 BUN/Creatinine Ratio 29 51 Glucose Level 156 H 102 70-105 MG/DL Lactic Acid Level 1.53 0.50-2.00 MMOL/L Calcium Level 9.6 8.3 L 8.5-10.1 MG/DL Corrected Calcium 8.8 8.5-10.1 MG/DL Total Bilirubin 1.2 H 0.7 0.1-1.0 MG/DL Aspartate Amino Transf (AST/SGOT) 49 H 23 5-34 U/L Alanine Aminotransferase (ALT/SGPT) 97 H 54 0-55 U/L Alkaline Phosphatase 189 H 122 40-136 U/L Total Protein 8.9 H 6.2 L 6.4-8.2 GM/DL Albumin 4.6 H 3.4 3.2-4.5 GM/DL Lipase 21 8-78 U/L Radiology Date of Exam:12/27/21 CT ABDOMEN/PELVIS WO EXAMINATION: CT abdomen and pelvis without contrast. TECHNIQUE: Multiple contiguous axial images were obtained through the abdomen and pelvis without the use of intravenous contrast. All CT scans use one or more of the following dose optimizing techniques: automated exposure control, MA and/or KvP adjustment based on patient size and exam type or iterative reconstruction. HISTORY: Bowel obstruction COMPARISON: 11/20/2019 FINDINGS: Lung bases: Bibasilar dependent atelectasis. Solid organs: The liver is normal. The gallbladder is surgically absent. There is no biliary ductal dilation. Pancreas is normal. Spleen is normal. Adrenal glands are normal. The kidneys are normal without visualized calculus or hydronephrosis. Bowel: There are multiple dilated loops of small bowel which measure up to 4.1 cm. Possible transition point within the right lower quadrant. There is diffuse dilatation of the colon with fluid seen throughout. Peritoneum: There is no intraperitoneal free fluid or free air. No suspicious lymphadenopathy. Vasculature: Calcification of the aorta without aneurysm. Musculoskeletal: No suspicious osseous lesion or compression fracture. Pelvis: The uterus is surgically absent. No adnexal mass. The urinary bladder is normal. IMPRESSION: 1. Findings concerning for small bowel obstruction with a possible transition point in the right lower quadrant. 2. Fluid distention of the colon which can be seen with diarrheal state. Dictated by: Dictated on workstation # [id number] Dict: 12/27/21 133 Trans: 12/27/211336 CV [id number] Interpreted by: ADITYA MARQUEZ DO Electronically signed by: ADITYA MARQUEZ DO 12/27/21 1337 Physical Exam-([facility]) Physical Exam Vital Signs VS - Last 72 Hours, by Label 12/27/21 12/27/21 12/27/21 12/27/21 10:39 10:39 15:42 16:15 Temp 37.9 Pulse 138 115 Resp 17 22 B/P (MAP) 131/99 (110) 144/93 Pulse Ox 96 96 O2 Delivery Nasal Cannula Nasal Cannula Nasal Cannula Nasal Cannula O2 Flow Rate 2.00 2.00 2.00 2.00 12/27/21 12/27/21 12/27/21 12/27/21 19:51 20:01 23:13 23:33 Temp 35.7 35.7 36.0 Pulse 124 124 121 Resp 18 16 B/P (MAP) 133/77 (95) 134/88 (103) Pulse Ox 91 91 91 94 O2 Delivery Room Air Room Air Nasal Cannula O2 Flow Rate 2.00 FiO2 21 12/28/21 12/28/21 12/28/21 12/28/21 02:44 05:00 07:50 08:00 Temp 36.2 36.0 Pulse 97 90 Resp 18 18 B/P (MAP) 121/82 (95) 115/60 (78) Pulse Ox 94 96 97 O2 Delivery Nasal Cannula Nasal Cannula Nasal Cannula Nasal Cannula O2 Flow Rate 2.00 2.00 2.00 1.00 12/28/21 12/28/21 12/28/21 08:09 11:20 14:47 Temp 36.0 Pulse 100 Resp 18 B/P (MAP) 123/60 (81) Pulse Ox 95 96 95 O2 Delivery Nasal Cannula Nasal Cannula Nasal Cannula O2 Flow Rate 1.00 1.00 1.00 Capillary Refill : Less Than 3 Seconds General Appearance: mild distress Respiratory: lungs clear, normal breath sounds Cardiovascular: regular rate, rhythm, no murmur Gastrointestinal: soft, tenderness, other (foul smelling yellow/brown drainage on dressing around J tube and onto towel in bed) Neurologic/Psychiatric: alert, other (flat affect) Skin: pallor Assessment/Plan Assessment/Plan Admission Status: Inpatient Order (span 2 midnights) Reason for Inpatient Admission: SBO with complex gastrointestinal system (1) Acute kidney injury Status: Acute Assessment & Plan: Secondary to dehydration related to SBO, resolved overnight with IVF. (2) Small bowel obstruction Status: Acute Assessment & Plan: Bowel rest, pain control, IVF. Surgery consulted, appreciate recommendations. (3) Elevated liver enzymes Status: Resolved Assessment & Plan: Elevated bilirubin, AST, ALT on admit, resolved overnight. (4) Jejunostomy present Status: Chronic Assessment & Plan: Uses jejeunostomy tube for enteral feedings typically and g tube for venting. Draining fecal appearing material around tube, see bowel obstruction diagnosis. (5) Gastrostomy tube in place (6) Chronic pain Status: Chronic Assessment & Plan: IV morphine for now due to SBO. On oxycodone at home, reportedly on fentanyl patches but would have run out if using regularly, previously also on morphine in addition to these two, but this was stopped, per her primary they were working toward tapering in anticipate of future procedures for her esophageal complications. (7) DVT prophylaxis Status: Acute Assessment & Plan: Enoxaparin LURDES PARTIDA MD Dec 28, 2021 10:05
[2021-12-28 11:20] VITALS: BP 123/60
[2021-12-28] MEDS ORDERED: ALBU2.5V4 INH (12:34)
[2021-12-28] MEDS ORDERED: BUDE10.26 INH (12:34)
[2021-12-28] MEDS ORDERED: ALBU90AE INH (12:34)
[2021-12-28] MEDS ORDERED: OXYC10TA7 JT (12:34)
[2021-12-28] MEDS ORDERED: ROPI0.253 JT (12:34)
[2021-12-28] MEDS ORDERED: PROM12.511 JT (12:34)
[2021-12-28] MEDS ORDERED: LORA-405 JT (12:34)
[2021-12-28] MEDS ORDERED: SERT-413 JT (12:34)
[2021-12-28] MEDS ORDERED: ALBU18HF2 INH (14:17)
[2021-12-28] MEDS ORDERED: FESO45ML JT (14:17)
[2021-12-28] MEDS ORDERED: MORP100S7 JT (14:17)
[2021-12-28] MEDS ORDERED: DIPH25TA65 JT (14:17)
[2021-12-28] MEDS ORDERED: PANT40SU JT (14:17)
[2021-12-28 16:00] VITALS: BP 142/84
[2021-12-28] MEDS: ENOXAPARIN 40 MG/0.4 ML (LOVENOX) SYR SC SCH (16:03)
[2021-12-28 19:48] VITALS: BP 139/82
[2021-12-28] MEDS: LORazepam INJ 2 MG/ML (ATIVAN) VIAL IVP PRN (21:25)
[2021-12-29] VITALS (8 sets, daily range): BP systolic 115–143; BP diastolic 59–76
[2021-12-29] MEDS: morphine INJ 4 MG/ML 1 ML (VIAL/SYRINGE) IV PRN ×5 (01:52→23:13)
[2021-12-29] MEDS: RT-ALBUTEROL/IPRATROPIUM 3 ML (DUONEB) VIAL INH SCH ×3 (02:17→15:27)
[2021-12-29] MEDS: ONDANSETRON 4 MG/2 ML (SDV) Z0FRAN IVP PRN (05:17)
[2021-12-29] MEDS: NS IV 1000 ML 1,000 ML IV SCH (06:05)
[2021-12-29 06:08] LABS: HEMATOCRIT 37 % (35-52); HEMOGLOBIN 11.3 g/dL (11.5-16.0); MEAN CORPUSCULAR HEMOGLOBIN 34 pg (25-34); MEAN CORPUSCULAR HGB CONC 31 g/dL (32-36); MEAN CORPUSCULAR VOLUME 109 fL (80-99); MEAN PLATELET VOLUME 9.1 fL (9.0-12.2); PLATELET COUNT 242 10^3/uL (130-400); WHITE BLOOD COUNT 5.6 10^3/uL (4.3-11.0)
[2021-12-29 06:24] LABS: ALBUMIN 2.9 GM/DL (3.2-4.5); POTASSIUM 3.6 MMOL/L (3.6-5.0)
[2021-12-29 06:27] LABS: TOTAL PROTEIN 5.5 GM/DL (6.4-8.2)
[2021-12-29 06:29] LABS: BILIRUBIN,TOTAL 0.4 MG/DL (0.1-1.0)
[2021-12-29 06:30] LABS: CREATININE SERUM 0.65 MG/DL (0.60-1.30)
--- NOTE | 2021-12-29 07:56 | Progress Note - Surgery ---
JOSH MYLES 12/29/21 0756: Subjective Date Seen by a Provider: Dec 29, 2021 Time Seen by a Provider: 07:52 Subjective/Events-last exam Patient states she feels about the same as yesterday. Still having some nausea that is controlled with zofran. Patient had a small bowel movement this morning, but nothing major. Patient states she wants to wait and hear Dr. Strange's recommendations before making a decision on her next step. Review of Systems HEENT: No Head Aches, No Visual Changes Pulmonary: Dyspnea, Cough Cardiovascular: No: Chest Pain, Palpitations Gastrointestinal: Nausea, Abdominal Pain; No: Vomiting Genitourinary: No Dysuria, No Frequency Focused Exam Lactate Level 12/27/21 10:44: Lactic Acid Level 1.53 Objective Exam Vital Signs Date Time Temp Pulse Resp B/P (MAP) Pulse Ox O2 Delivery O2 Flow Rate FiO2 12/29/21 07:20 36.8 89 18 143/75 (97) 96 Nasal Cannula 1.00 12/29/21 02:17 94 Nasal Cannula 1.00 12/28/21 22:07 95 Nasal Cannula 1.00 12/28/21 20:00 Nasal Cannula 1.00 12/28/21 19:48 36.0 90 18 139/82 (101) 95 Nasal Cannula 1.00 12/28/21 16:00 35.8 92 18 142/84 (103) 93 Nasal Cannula 1.00 12/28/21 14:47 95 Nasal Cannula 1.00 12/28/21 11:20 36.0 100 18 123/60 (81) 96 Nasal Cannula 1.00 12/28/21 08:09 95 Nasal Cannula 1.00 12/28/21 08:00 Nasal Cannula 1.00 I & O 12/29/21 07:00 Intake Total 1950 ml Output Total 450 ml Balance 1500 ml Capillary Refill : Less Than 3 Seconds General Appearance: No Apparent Distress, WD/WN Neck: Non Tender, Supple Respiratory: Chest Non Tender, Normal Breath Sounds (anterior listening posts only), No Accessory Muscle Use, No Respiratory Distress Cardiovascular: Regular Rate, Rhythm, Normal Peripheral Pulses Peripheral Pulses: 2+ Radial Pulses (R), 2+ Radial Pulses (L) Gastrointestinal: soft, tenderness, other (foul smelling yellow/brown drainage on dressing around J tube and onto towel in bed) Extremity: Non Tender, No Calf Tenderness, No Pedal Edema Neurologic/Psychiatric: Alert, Oriented x3, Depressed Affect Skin: Normal Color, Warm/Dry Results Lab Laboratory Tests 12/29/21 05:45: White Blood Count 5.6, Red Blood Count 3.37L, Hemoglobin 11.3L, Hematocrit 37, Mean Corpuscular Volume 109H, Mean Corpuscular Hemoglobin 34, Mean Corpuscular Hemoglobin Concent 31L, Red Cell Distribution Width 11.8, Platelet Count 242, Mean Platelet Volume 9.1, Sodium Level 146H, Potassium Level 3.6, Chloride Level 112H, Carbon Dioxide Level 18L, Anion Gap 16H, Blood Urea Nitrogen 30H, Creatinine 0.65, Estimat Glomerular Filtration Rate 101, BUN/Creatinine Ratio 46, Glucose Level 64L, Calcium Level 8.0L, Corrected Calcium 8.9, Total Biliru bin 0.4, Aspartate Amino Transf (AST/SGOT) 21, Alanine Aminotransferase (ALT/SGPT) 36, Alkaline Phosphatase 100, Total Protein 5.5L, Albumin 2.9L Microbiology 12/27/21 Blood Culture - Preliminary, Resulted No growth Assessment/Plan Assessment/Plan Assessment/Plan Partial Small Bowel Obstruction Suprapubic pain w/ painful urination and feelings of incomplete voiding Hypochloremia, resolved Extensive history of abdominal surgery with Jejunostomy tube placement Hypertension Tachycardia , intermittent, currently not Chronic low back pain Asthma Plan Continue NPO, IVF Repeat imaging tomorrow Continue Zofran for nausea control Pain management Breathing treatments PRN I gave pt a few options; 1) do nothing and see if it resolves 2) give it another day or so and then go to surgery 3) go to surgery today 4) I also told her I would try and get a hold of her [facility] surgeon for an opinion. Got gayla of his RN yesterday and am awaiting a call back. On the Abd Flat plate yesterday the contrast has not moved; plus, I think the air and distention is worse. My feeling is she will eventually need surgery during this visit. TODD CR DO 12/29/21 1634: Subjective Time Seen by a Provider: 11:06 Subjective/Events-last exam Pt seen and examined, states she is still having pain and only very tiny BMs. Does not feel any better than yesterday. Review of Systems HEENT: No Head Aches, No Visual Changes Pulmonary: Dyspnea, Cough Cardiovascular: No: Chest Pain, Palpitations Gastrointestinal: Nausea, Abdominal Pain; No: Vomiting Genitourinary: No Dysuria, No Frequency Objective Exam General Appearance: No Apparent Distress, WD/WN Respiratory: Chest Non Tender, Normal Breath Sounds (anterior listening posts only), No Accessory Muscle Use, No Respiratory Distress Cardiovascular: Regular Rate, Rhythm, Normal Peripheral Pulses Gastrointestinal: soft, distended, tenderness, other (foul smelling yellow/brown drainage on dressing around J tube and onto towel in bed) Assessment/Plan Assessment/Plan Assessment/Plan Partial Small Bowel Obstruction Suprapubic pain w/ painful urination and feelings of incomplete voiding Hypochloremia, resolved Extensive history of abdominal surgery with Jejunostomy tube placement Hypertension Tachycardia , intermittent, currently not Chronic low back pain Asthma Plan Continue NPO, IVF Continue Zofran for nausea control Pain management Breathing treatments PRN I talked to the pt and told her I got a hold of her [facility] surgeon; gave him my assessment and all information, his opinion was to go ahead with surgery. Pt wanted to talk to her daughter about surgery. I went back about 10min ago and she said her daughter had agreed with surgery and therefore will schedule it for tonight and get consent. Supervisory-Addendum Brief Verification & Attestation Participated in pt care: history, MDM, physical Personally performed: exam, history, MDM, supervision of care Care discussed with: Medical Student Procedures: n/a Verification and Attestation of Medical Student E/M Service A medical student performed and documented this service. I then reviewed and verified all information documented by the medical student and made modifications to such information, when appropriate. I personally performed a physical exam, medical decision making and then discussed any differences between the notes and made revisions as necessary to create one note. Todd Cr , 12/29/21 , 16:34 SHAMEKAJOSH Dec 29, 2021 07:56 TODD CR DO Dec 29, 2021 16:34
[2021-12-29] MEDS ORDERED: D5 1/2 NS 1000 ML IV SOLUTION 1,000 ML IV ONE (09:08)
[2021-12-29] MEDS: D5 1/2 NS 1000 ML IV SOLUTION 1,000 ML IV SCH ×2 (09:11→16:44)
[2021-12-29] MEDS: LORazepam INJ 2 MG/ML (ATIVAN) VIAL IVP PRN ×2 (11:42→23:11)
[2021-12-29] MEDS ORDERED: LACTATED RINGERS 1,000 ML IV PRN (14:30)
[2021-12-29] MEDS: ENOXAPARIN 40 MG/0.4 ML (LOVENOX) SYR SC SCH (16:44)
--- NOTE | 2021-12-29 18:14 | Progress Note ---
Subjective Subjective/Events-last exam Seen at 1020. Afebrile, reports passing small amount of stool but not feeling any better. Focused Exam Lactate Level 12/27/21 10:44: Lactic Acid Level 1.53 Objective Exam Last Set of Vital Signs Vital Signs Date Time Temp Pulse Resp B/P (MAP) Pulse Ox O2 Delivery O2 Flow Rate FiO2 12/29/21 16:00 35.9 81 18 138/76 (96) 95 Room Air 12/29/21 15:27 1.00 12/27/21 23:13 21 Capillary Refill : Less Than 3 Seconds I&O Intake and Output 12/29/21 00:00 Intake Total 2950 ml Output Total 450 ml Balance 2500 ml Intake Oral 0 ml IV Total 2950 ml Output Urine Total 450 ml # Voids 2 # Bowel Movements 2 General: Alert, No Acute Distress Lungs: Clear to Auscultation, Normal Air Movement Heart: Regular Rate, No Murmurs Abdomen: Normal Bowel Sounds, Other (ttp, decreased drainage around tube compared to yesterday) Extremities: No Edema Neuro: Normal Speech Psych/Mental Status: Mood NL Results/Procedures Lab Laboratory Tests 12/29/21 05:45: White Blood Count 5.6, Red Blood Count 3.37L, Hemoglobin 11.3L, Hematocrit 37, Mean Corpuscular Volume 109H, Mean Corpuscular Hemoglobin 34, Mean Corpuscular Hemoglobin Concent 31L, Red Cell Distribution Width 11.8, Platelet Count 242, Mean Platelet Volume 9.1, Sodium Level 146H, Potassium Level 3.6, Chloride Level 112H, Carbon Dioxide Level 18L, Anion Gap 16H, Blood Urea Nitrogen 30H, Creatinine 0.65, Estimat Glomerular Filtration Rate 101, BUN/Creatinine Ratio 46, Glucose Level 64L, Calcium Level 8.0L, Corrected Calcium 8.9, Total Bilirubin 0.4, Aspartate Amino Transf (AST/SGOT) 21, Alanine Aminotransferase (ALT/SGPT) 36, Alkaline Phosphatase 100, Total Protein 5.5L, Albumin 2.9L Microbiology 12/27/21 Blood Culture - Preliminary, Resulted No growth Radiology Date of Exam:12/27/21 CT ABDOMEN/PELVIS WO EXAMINATION: CT abdomen and pelvis without contrast. TECHNIQUE: Multiple contiguous axial images were obtained through the abdomen and pelvis without the use of intravenous contrast. All CT scans use one or more of the following dose optimizing techniques: automated exposure control, MA and/or KvP adjustment based on patient size and exam type or iterative reconstruction. HISTORY: Bowel obstruction COMPARISON: 11/20/2019 FINDINGS: Lung bases: Bibasilar dependent atelectasis. Solid organs: The liver is normal. The gallbladder is surgically absent. There is no biliary ductal dilation. Pancreas is normal. Spleen is normal. Adrenal glands are normal. The kidneys are normal without visualized calculus or hydronephrosis. Bowel: There are multiple dilated loops of small bowel which measure up to 4.1 cm. Possible transition point within the right lower quadrant. There is diffuse dilatation of the colon with fluid seen throughout. Peritoneum: There is no intraperitoneal free fluid or free air. No suspicious lymphadenopathy. Vasculature: Calcification of the aorta without aneurysm. Musculoskeletal: No suspicious osseous lesion or compression fracture. Pelvis: The uterus is surgically absent. No adnexal mass. The urinary bladder is normal. IMPRESSION: 1. Findings concerning for small bowel obstruction with a possible transition point in the right lower quadrant. 2. Fluid distention of the colon which can be seen with diarrheal state. Dictated by: Dictated on workstation # [id number] Dict: 12/27/21 1330 Trans: 12/27/21 1337 [facility] [id number] Interpreted by: ADITYA MARQUEZ DO Electronically signed by: ADITYA MARQUEZ DO 12/27/21 1337 Assessment/Plan Assessment/Plan (1) Acute kidney injury Status: Resolved Assessment & Plan: Secondary to dehydration related to SBO, resolved overnight with IVF. (2) Small bowel obstruction Status: Acute Assessment & Plan: Bowel rest, pain control, IVF. Surgery consulted, appreciate recommendations. (3) Elevated liver enzymes Status: Resolved Assessment & Plan: Elevated bilirubin, AST, ALT on admit, resolved overnight. (4) Jejunostomy present Status: Chronic Assessment & Plan: Uses jejeunostomy tube for enteral feedings typically and g tube for venting. Draining fecal appearing material around tube, see bowel obstruction diagnosis. (5) Gastrostomy tube in place (6) Chronic pain Status: Chronic Assessment & Plan: IV morphine for now due to SBO. On oxycodone at home, reportedly on fentanyl patches but would have run out if using regularly, previously also on morphine in addition to these two, but this was stopped, per her primary they were working toward tapering in anticipate of future procedures for her esophageal complications. (7) DVT prophylaxis Status: Acute Assessment & Plan: Enoxaparin LURDES PARTIDA MD Dec 29, 2021 18:14
[2021-12-29] MEDS: LACTATED RINGERS 1,000 ML IV PRN ×3 (18:25→21:30)
[2021-12-29] MEDS ORDERED: SUCCINYLCHOLINE INJ 100 MG/5 ML SYR/VIAL ONE (19:10)
[2021-12-29] MEDS ORDERED: ROCURONIUM 10 MG/ML 5 ML SYRINGE IV ONE ×2 (19:10→20:41)
[2021-12-29] MEDS ORDERED: MIDAZOLAM 2 MG/2 ML (VERSED) VIAL ONE (19:10)
[2021-12-29] MEDS ORDERED: fentaNYL INJ 100 MCG/2 ML AMP ONE ×2 (19:10→22:25)
[2021-12-29] MEDS ORDERED: LIDOCAINE PF 2% 5 ML (XYLOCAINE) VIAL ONE (19:10)
[2021-12-29] MEDS ORDERED: ONDANSETRON 4 MG/2 ML (SDV) Z0FRAN ONE (19:10)
[2021-12-29] MEDS ORDERED: proPOfol 200 MG/20 ML (DIPRIVAN) VIAL IV ONE (19:10)
[2021-12-29] MEDS ORDERED: ceFAZolin INJECTION 2,000 MG ONE (19:30)
[2021-12-29] MEDS ORDERED: GLYCOPYRROLATE 0.2 MG/ML (ROBINUL) 2 ML VIAL ONE (21:25)
[2021-12-29] MEDS ORDERED: NEOSTIGMINE 3 MG/3 ML VIAL ONE (21:25)
[2021-12-29] MEDS ORDERED: BUPIVACAINE 0.5% 30 ML (SENSORCAINE) VIAL ONE (21:34)
[2021-12-29] MEDS ORDERED: SEVOFLURANE (ULTANE) 15 ML INHAL SOLN ONE ×2 (21:48→21:49)
[2021-12-29] MEDS ORDERED: PROMETHAZINE INJ 25 MG/ML (PHENERGAN) AMP IVP ONE (22:30)
[2021-12-29] MEDS ORDERED: MEPERIDINE (DEMEROL) INJ 50 MG/ML IVP ONE (22:30)
[2021-12-29] MEDS ORDERED: ONDANSETRON 4 MG/2 ML (SDV) Z0FRAN IVP PRN (22:30)
[2021-12-29] MEDS ORDERED: fentaNYL INJ 100 MCG/2 ML AMP IVP ONE (22:30)
--- NOTE | 2021-12-29 22:45 | Progress Note-Post Operative ---
Post-Operative Progess Note Surgeon (s)/Floral Decorator (s) Surgeon TODD CR DO Floral Decorator: Romelia Pre-Operative Diagnosis PSBO Post-Operative Diagnosis PSBO secondary to adhesions LBO secondary to stricture Adhesions Procedure & Operative Findings Date of Procedure 12/29/21 Procedure Performed/Findings Colon resection with end Colostomy - Palmer's procedure Colotomy with manual decompression Lysis of adhesions Partial Omentectomy Anesthesia Type GET Estimated Blood Loss Estimated blood loss (mL): 50ml Specimens/Packing Specimens Removed Portion of Sigmoid colon Omentum Packin TODD CR DO Dec 29, 2021 22:45
[2021-12-30] VITALS (9 sets, daily range): BP systolic 116–132; BP diastolic 69–84
[2021-12-30] MEDS: morphine INJ 4 MG/ML 1 ML (VIAL/SYRINGE) IV PRN ×10 (01:48→22:12)
--- NOTE | 2021-12-30 02:17 | OPERATIVE REPORT ---
DATE OF SERVICE: 12/29/2021 PREOPERATIVE DIAGNOSIS: Partial small-bowel obstruction. POSTOPERATIVE DIAGNOSES: 1. Partial small-bowel obstruction secondary to adhesions. 2. Large bowel obstruction secondary to stricture. 3. Adhesions. PROCEDURES: 1. Colon resection with end colostomy, Emilie's procedure. 2. Colotomy with manual decompression. 3. Lysis of adhesions. 4. Partial omentectomy. SURGEON: Christo Bragg DO LOAD TEST MECHANIC: Omar León DO. ANESTHESIA: General endotracheal tube. SPECIMEN: Portion of sigmoid colon, omentum. BLOOD LOSS: Approximately 50 mL. FLUIDS: Per anesthesia. POSTOPERATIVE CONDITION: Stable. INDICATION FOR PROCEDURE: The patient is a 61-year-old female, who has a long complicated course secondary to a perforation during a laparoscopic Marisol. She currently has a spit fistula and a jejunostomy tube. She has been like this for 4 years. They have been waiting to get her stronger to be able to possibly reconnect her GI tract. She presented with a distended abdomen. CT showed area of partial small-bowel obstruction, transition point had given her some contrast, did not move through the small bowel and large bowel looked worse the next day on flat plate, did speak with her cardiothoracic surgeon at and he agreed with surgery and therefore, the patient consented to surgery today. FINDINGS: The patient had some omentum that had trapped the large bowel. She had an adhesion that was causing a partial small-bowel obstruction and then found a stricture, it would felt like a mass in the sigmoid colon. This was removed and sent to pathology. PROCEDURE NOTE: After informed consent was obtained, the patient was brought to the operating room, placed on the operating table in supine position. She was sterilely prepped and draped in normal fashion. Midline incision made with #10 blade, carried down through the skin into subcutaneous tissue, then deepened down to subcutaneous tissue with Bovie electrocautery down to fascia. Fascia was incised with Bovie electrocautery, bluntly entered the abdomen, swept a finger around and then protected the bowel with my hand and increased the incision superiorly and inferiorly. Upon entering, noted very dilated transverse colon and looked like the omentum had wrapped over and around and down to the base of the mesentery started freeing up this omentum and did a partial omentectomy, passed this off table and sent to pathology. We carefully started taking the adhesions out getting the omentum off of the base of the mesentery and then elected to take this off the transverse colon, it almost looked like it had been twisted, started running the small bowel, found the jejunostomy tube and found the ligament of Treitz. There were some adhesions. These were carefully taken down, found a large portion of small bowel proximal to the ligament of Treitz that was actually under and around this small intestine, able to push this back under to be in a correct position, ran a small intestine, found 2 small adhesions down in the pelvis. These were cut with Metzenbaum scissors, able to remove these and then finally able to run the small intestine all the way to the terminal ileum into the cecum. The colon was very distended at least 8 cm of the transverse colon about the same at the cecum. The descending colon was also about 6 cm could not see any other obstructions and at this point because there was so much fluid and did not feel like we were able to get this back in her belly. I placed a pursestring on the tinea of the cecum and then made an incision with a Bovie electrocautery and placed suction and then manually decompressed the small bowel working from the descending colon, across the transverse colon and into the ascending colon and cecum to suction this out as well as then mainly decompressing the small bowel carefully milking all of the fecal material and fluid through the small bowel to the cecum to be able to suction all this out. Once this was done, then closed this colotomy with a pursestring suture we had placed and then did another [id number] suture to close the incision then ran the large bowel and found what felt like a mass and an adhesion on the left pelvic wall and felt like a mass in the sigmoid colon. Everything was stuck to the left side, carefully started taking this down with some Bovie electrocautery as well as blunt dissection, taking down this trying to stay away from the vascular structures and the ureter on the left, able to free this up and then get down under this mass and placed a contour stapler, clamped and then held for 30 seconds, then fired thereby removing this. Then using LigaSure, coming across the mesentery and coming up past this area of what felt like mass and inflammation to a good portion just proximal to this area, which was probably in the descending colon, used another contour stapler reload to clamp across and transect. At this point then removed this, passed this off table, actually open it up, we felt it was a tumor, but it looked like it may have just been a reaction from inflammatory response secondary to diverticulitis. This was sent to pathology. At this point, copiously irrigated with normal saline. Tagged the rectal stump with a 3-0 Prolene. All of the bowel was now freed up. There was no spillage of any fecal contents and at this point, then elected to make an incision in the left lower quadrant, cut a circular incision with a Bovie electrocautery and then carried this down to the fascia, made a cruciate incision in the fascia and then bluntly spread the muscle, rectus muscle went through and then grasped with a [place] grasped the distal colon to bring this through the abdominal wall to create our end colostomy therefore, by doing a Emilie's procedure. At this point, ran the intestine again, did not find any other pathology and then elected to close the incision with #1 double stranded PDS suture running from superior portion to inferior portion tying to itself. Copiously irrigated this with normal saline and then closing the incision with queta. Then, did a Maddi type colostomy [place] grasping the colon having cut off the staple line and then cut it, grasping the colon with a 3-0 Vicryl at the opening and then down along the colon itself and then on the skin doing this at 3, 6, 9, and 12 o'clock position to [place] this colon open and then in between each of these placed 2 more 3-0 Vicryl stitches, thereby maturing the colostomy, placed a colostomy device. The patient was then transferred to recovery room in stable condition. Sponge, instrument and needle count correct at the end of the case. Dr. León assisted in this case helping to make incisions, close incisions and helping to identify and hold anatomy out of the way. Job ID: [id number] DocumentID: [id number] Dictated Date: 12/29/2021 22:50:41 Sr Risk Management Consultant Date: 12/30/2021 02:16:53 Dictated By: DO MOHAN MACKENZIE
[2021-12-30] MEDS: D5 1/2 NS 1000 ML IV SOLUTION 1,000 ML IV SCH ×4 (02:23→22:12)
[2021-12-30] MEDS: RT-ALBUTEROL/IPRATROPIUM 3 ML (DUONEB) VIAL INH SCH ×5 (03:24→20:21)
[2021-12-30 06:25] LABS: HEMATOCRIT 39 % (35-52); HEMOGLOBIN 12.7 g/dL (11.5-16.0); MEAN CORPUSCULAR HEMOGLOBIN 34 pg (25-34); MEAN CORPUSCULAR HGB CONC 32 g/dL (32-36); MEAN CORPUSCULAR VOLUME 105 fL (80-99); MEAN PLATELET VOLUME 8.9 fL (9.0-12.2); PLATELET COUNT 303 10^3/uL (130-400); WHITE BLOOD COUNT 12.6 10^3/uL (4.3-11.0)
[2021-12-30 06:45] LABS: POTASSIUM 3.5 MMOL/L (3.6-5.0)
[2021-12-30 06:46] LABS: CALCIUM 7.8 MG/DL (8.5-10.1)
[2021-12-30 06:51] LABS: CREATININE SERUM 0.65 MG/DL (0.60-1.30)
--- NOTE | 2021-12-30 08:41 | Progress Note - Surgery ---
JOSH MYLES 12/30/21 0841: Subjective Date Seen by a Provider: Dec 30, 2021 Time Seen by a Provider: 07:35 Subjective/Events-last exam Patient lying in bed resting upon entering the room. She is S/P day 1 ex-lap with end colostomy. States she feels less bloated than before the surgery, but that she is having pain at her incision sites, is requesting additional pain medications. Her ostomy is patent and pink, and her bag contains trace stool. Review of Systems General: No Chills, No Night Sweats HEENT: No Head Aches, No Visual Changes Pulmonary: Dyspnea, Cough Cardiovascular: No: Chest Pain, Palpitations Gastrointestinal: Abdominal Pain; No: Nausea, Vomiting Focused Exam Lactate Level 12/27/21 10:44: Lactic Acid Level 1.53 Objective Exam Vital Signs Date Time Temp Pulse Resp B/P (MAP) Pulse Ox O2 Delivery O2 Flow Rate FiO2 12/30/21 08:17 37.0 113 18 129/79 (96) 98 Room Air 12/30/21 07:53 98 Nasal Cannula 3.00 12/30/21 03:25 95 Nasal Cannula 2.00 12/30/21 00:24 Nasal Cannula 1.00 12/29/21 23:00 Nasal Cannula 3 12/29/21 22:50 36.1 14 128/60 (82) 100 Nasal Cannula 3 12/29/21 22:40 16 123/61 (81) 100 Nasal Cannula 3 12/29/21 22:30 12 119/59 (79) 100 OxyMask 10 12/29/21 22:30 OxyMask 10 12/29/21 22:20 11 115/60 (78) 100 OxyMask 10 12/29/21 22:10 12 121/63 (82) 100 OxyMask 10 12/29/21 22:00 OxyMask 10 12/29/21 22:00 36.2 26 119/66 (83) 100 OxyMask 10 12/29/21 16:00 35.9 81 18 138/76 (96) 95 Room Air 12/29/21 15:27 95 Nasal Cannula 1.00 I & O 12/30/21 07:00 Intake Total 2470 ml Output Total 740 ml Balance 1730 ml Capillary Refill : Less Than 3 Seconds General Appearance: No Apparent Distress, WD/WN Neck: Non Tender, Supple Respiratory: Normal Breath Sounds (anterior listening posts only. On 2L NC), No Accessory Muscle Use, No Respiratory Distress Cardiovascular: Regular Rate, Rhythm, Normal Peripheral Pulses Peripheral Pulses: 2+ Radial Pulses (R), 2+ Radial Pulses (L) Gastrointestinal: soft, tenderness, other (Ostomy pink and patent; stool in bag. Still having leakage around base of J-tube) Extremity: Non Tender, No Calf Tenderness, No Pedal Edema Neurologic/Psychiatric: Alert, Oriented x3, Depressed Affect Skin: Normal Color, Warm/Dry Results Lab Laboratory Tests 12/30/21 06:15: White Blood Count 12.6H, Red Blood Count 3.75L, Hemoglobin 12.7, Hematocrit 39, Mean Corpuscular Volume 105H, Mean Corpuscular Hemoglobin 34, Mean Corpuscular Hemoglobin Concent 32, Red Cell Distribution Width 11.6, Platelet Count 303, Mean Platelet Volume 8.9L, Sodium Level 139, Potassium Level 3.5L, Chloride Level 109H, Carbon Dioxide Level 18L, Anion Gap 12, Blood Urea Nitrogen 14, Creatinine 0.65, Estimat Glomerular Filtration Rate 101, BUN/Creatinine Ratio 22, Glucose Level 240H, Calcium Level 7.8L Microbiology 12/27/21 Blood Culture - Preliminary, Resulted No growth Assessment/Plan Assessment/Plan Assessment/Plan Partial Small Bowel Obstruction \ - S/P day 1 ex lap w/ end colostomy for potential diverticular stricture/mass, awaiting pathology Suprapubic pain w/ painful urination and feelings of incomplete voiding Hypokalemia Hypochloremia, resolved Extensive history of abdominal surgery with Jejunostomy tube placement Hypertension Tachycardia , intermittent, currently not Chronic low back pain Asthma Plan Continue IVF Continue Zofran for nausea control Pain management KCl replacement Breathing treatments PRN Patient status post day 1 ex lap with end colostomy. Discussed with patient's family yesterday that this colostomy doesn't need to be permanent and can be reversed if patient is able to get her strength up. Ideally at [facility] when they do her esophageal reversal. Patient states her abdomen does feel less distended and painful than before the surgery, but that she is having pain at her incision sites. Continue to monitor. CHRISTO BRAGG DO 12/30/21 1157: Subjective Time Seen by a Provider: 10:17 Subjective/Events-last exam Pt seen and examined, states she is having some moderate pain. Laying in bed, not wanting to move much. Review of Systems General: No Chills, No Night Sweats Pulmonary: Dyspnea, Cough Cardiovascular: No: Chest Pain, Palpitations Gastrointestinal: Abdominal Pain; No: Nausea, Vomiting Objective Exam General Appearance: No Apparent Distress, WD/WN HEENT: PERRL/EOMI Respiratory: Normal Breath Sounds (anterior listening posts only. On 2L NC), No Accessory Muscle Use, No Respiratory Distress Cardiovascular: Regular Rate, Rhythm, No Murmur, Normal Peripheral Pulses Gastrointestinal: tenderness, other (Ostomy pink and patent; stool in bag. Still having leakage around base of J-tube) Extremity: No Pedal Edema Neurologic/Psychiatric: Depressed Affect Skin: Pallor Assessment/Plan Assessment/Plan Assessment/Plan Partial Small Bowel Obstruction \ Large bowel obstruction - S/P day 1 ex lap w/ end colostomy for potential diverticular stricture/mass, awaiting pathology Suprapubic pain w/ painful urination and feelings of incomplete voiding Hypokalemia Hypochloremia, resolved Extensive history of abdominal surgery with Jejunostomy tube placement Hypertension Tachycardia , intermittent, currently not Chronic low back pain Asthma Plan Continue IVF Continue Zofran for nausea control Pain management KCl replacement Breathing treatments PRN Patient status post day 1 ex lap with end colostomy. Discussed with patient's family yesterday that this colostomy doesn't need to be permanent and can be reversed if patient is able to get her strength up. Ideally at [facility] when they do her esophageal reversal. Patient states her abdomen does feel less distended and painful than before the surgery, but that she is having pain at her incision sites. Encourage pt to ambulate and use IS, will start trickling in some tube feeds. Supervisory-Addendum Brief Verification & Attestation Participated in pt care: history, MDM, physical Personally performed: exam, history, MDM, supervision of care Care discussed with: Medical Student Procedures: n/a Verification and Attestation of Medical Student E/M Service A medical student performed and documented this service. I then reviewed and verified all information documented by the medical student and made modifications to such information, when appropriate. I personally performed a physical exam, medical decision making and then discussed any differences between the notes and made revisions as necessary to create one note. Christo Bragg , 12/30/21 , 11:57 YOUNGERJOSH Dec 30, 2021 08:41 CHRISTO BRAGG DO Dec 30, 2021 11:57
[2021-12-30] MEDS: LORazepam INJ 2 MG/ML (ATIVAN) VIAL IVP PRN ×2 (10:57→20:32)
--- NOTE | 2021-12-30 13:15 | Anesthesia-General Post-Op ---
General Patient Condition Mental Status/LOC: Same as Preop Cardiovascular: Satisfactory Nausea/Vomiting: Absent Respiratory: Satisfactory Pain: Controlled Complications: Absent Post Op Complications Complications None Follow Up Care/Instructions Patient Instructions None needed. Anesthesia/Patient Condition Patient Condition Patient is doing well, no complaints, stable vital signs, no apparent adverse anesthesia problems. No complications reported per nursing. GRISELDA FAITH CRNA Dec 30, 2021 13:15
[2021-12-30] MEDS: ENOXAPARIN 40 MG/0.4 ML (LOVENOX) SYR SC SCH (16:02)
--- NOTE | 2021-12-30 16:47 | Progress Note ---
Subjective Subjective/Events-last exam She is very tired and reports pain is not controlled currently. Had surgery last night. Objective Exam Last Set of Vital Signs Vital Signs Date Time Temp Pulse Resp B/P (MAP) Pulse Ox O2 Delivery O2 Flow Rate FiO2 12/30/21 16:27 37.0 119 22 120/84 (96) 98 Nasal Cannula 3.00 12/30/21 15:31 32 Capillary Refill : Less Than 3 Seconds I&O Intake and Output 12/30/21 00:00 Intake Total 3470 ml Output Total 540 ml Balance 2930 ml Intake Oral 0 ml IV Total 3470 ml Output Urine Total 540 ml # Voids 2 # Bowel Movements 1 General: Alert, No Acute Distress Lungs: Clear to Auscultation, Normal Air Movement Heart: Regular Rate, No Murmurs Abdomen: Soft, Other (ostomy in place with dark output, dressing in place to incision) Psych/Mental Status: Mental Status NL Results/Procedures Lab Laboratory Tests 12/30/21 06:15: White Blood Count 12.6H, Red Blood Count 3.75L, Hemoglobin 12.7, Hematocrit 39, Mean Corpuscular Volume 105H, Mean Corpuscular Hemoglobin 34, Mean Corpuscular Hemoglobin Concent 32, Red Cell Distribution Width 11.6, Platelet Count 303, Mean Platelet Volume 8.9L, Sodium Level 139, Potassium Level 3.5L, Chloride Level 109H, Carbon Dioxide Level 18L, Anion Gap 12, Blood Urea Nitrogen 14, Creatinine 0.65, Estimat Glomerular Filtration Rate 101, BUN/Creatinine Ratio 22, Glucose Level 240H, Calcium Level 7.8L Microbiology 12/27/21 Blood Culture - Preliminary, Resulted No growth Radiology Date of Exam:12/27/21 CT ABDOMEN/PELVIS WO EXAMINATION: CT abdomen and pelvis without contrast. TECHNIQUE: Multiple contiguous axial images were obtained through the abdomen and pelvis without the use of intravenous contrast. All CT scans use one or more of the following dose optimizing techniques: automated exposure control, MA and/or KvP adjustment based on patient size and exam type or iterative reconstruction. HISTORY: Bowel obstruction COMPARISON: 11/20/2019 FINDINGS: Lung bases: Bibasilar dependent atelectasis. Solid organs: The liver is normal. The gallbladder is surgically absent. There is no biliary ductal dilation. Pancreas is normal. Spleen is normal. Adrenal glands are normal. The kidneys are normal without visualized calculus or hydronephrosis. Bowel: There are multiple dilated loops of small bowel which measure up to 4.1 cm. Possible transition point within the right lower quadrant. There is diffuse dilatation of the colon with fluid seen throughout. Peritoneum: There is no intraperitoneal free fluid or free air. No suspicious lymphadenopathy. Vasculature: Calcification of the aorta without aneurysm. Musculoskeletal: No suspicious osseous lesion or compression fracture. Pelvis: The uterus is surgically absent. No adnexal mass. The urinary bladder is normal. IMPRESSION: 1. Findings concerning for small bowel obstruction with a possible transition point in the right lower quadrant. 2. Fluid distention of the colon which can be seen with diarrheal state. Dictated by: Dictated on workstation # [id number] Dict: 12/27/21 1330 Trans: 12/27/21 133 CV [id number] Interpreted by: ADITYA MARQUEZ DO Electronically signed by: ADITYA MARQUEZ DO 12/27/21 1332 Assessment/Plan Assessment/Plan (1) Acute kidney injury Status: Resolved Assessment & Plan: Secondary to dehydration related to SBO, resolved overnight with IVF. (2) Small bowel obstruction Status: Acute Assessment & Plan: Bowel rest, pain control, IVF. Surgery consulted, appreciate recommendations. 12/30- s/p colon resection with end colostomy, lysis of adhesions and partial omentectomy last night (3) Elevated liver enzymes Status: Resolved Assessment & Plan: Elevated bilirubin, AST, ALT on admit, resolved overnight. (4) Jejunostomy present Status: Chronic Assessment & Plan: Uses jejeunostomy tube for enteral feedings typically and g tube for venting. Draining fecal appearing material around tube, see bowel obstruction diagnosis. (5) Gastrostomy tube in place (6) Chronic pain Status: Chronic Assessment & Plan: IV morphine for now due to SBO. On oxycodone at home, reportedly on fentanyl patches but would have run out if using regularly, previously also on morphine in addition to these two, but this was stopped, per her primary they were working toward tapering in anticipate of future procedures for her esophageal complications. (7) DVT prophylaxis Status: Acute Assessment & Plan: Enoxaparin LURDES PARTIDA MD Dec 30, 2021 16:47
[2021-12-30] MEDS ORDERED: NS IV 500 ML 500 ML ONE (18:09)
[2021-12-30] MEDS ORDERED: NS (IVPB) 500 ML IV ONE (18:15)
[2021-12-30 20:24] LABS: HEMATOCRIT 38 % (35-52); HEMOGLOBIN 11.8 g/dL (11.5-16.0); MEAN CORPUSCULAR HEMOGLOBIN 34 pg (25-34); MEAN CORPUSCULAR HGB CONC 31 g/dL (32-36); MEAN CORPUSCULAR VOLUME 108 fL (80-99); MEAN PLATELET VOLUME 9.2 fL (9.0-12.2); PLATELET COUNT 288 10^3/uL (130-400); WHITE BLOOD COUNT 15.5 10^3/uL (4.3-11.0)
[2021-12-30 20:37] LABS: ALBUMIN 2.5 GM/DL (3.2-4.5); POTASSIUM 3.5 MMOL/L (3.6-5.0)
[2021-12-30 20:38] LABS: CALCIUM 7.8 MG/DL (8.5-10.1)
[2021-12-30 20:40] LABS: TOTAL PROTEIN 4.9 GM/DL (6.4-8.2)
[2021-12-30 20:41] LABS: BILIRUBIN,TOTAL 0.6 MG/DL (0.1-1.0)
[2021-12-30 20:43] LABS: CREATININE SERUM 0.61 MG/DL (0.60-1.30)
[2021-12-30] MEDS: PIPERACILLIN SODIUM/TAZOBACTAM 4.5 GM in NS (IVPB) 100 ML IV SCH (21:21)
[2021-12-31] VITALS (20 sets, daily range): BP systolic 101–139; BP diastolic 60–85
[2021-12-31] MEDS: morphine INJ 4 MG/ML 1 ML (VIAL/SYRINGE) IV PRN ×10 (00:07→20:54)
[2021-12-31] MEDS: PIPERACILLIN SODIUM/TAZOBACTAM 4.5 GM in NS (IVPB) 100 ML IV SCH ×3 (04:05→20:51)
[2021-12-31] MEDS: D5 1/2 NS 1000 ML IV SOLUTION 1,000 ML IV SCH ×3 (05:06→18:54)
[2021-12-31 05:12] LABS: BASOPHILS # (AUTO) 0.1 10^3/uL (0.0-0.1); BASOPHILS % (AUTO) 0 % (0-10); EOSINOPHILS # (AUTO) 0.1 10^3/uL (0.0-0.3); EOSINOPHILS % (AUTO) 0 % (0-10); HEMATOCRIT 37 % (35-52); HEMOGLOBIN 11.6 g/dL (11.5-16.0); LYMPHOCYTES # (AUTO) 3.5 10^3/uL (1.0-4.0); LYMPHOCYTES % (AUTO) 25 % (12-44); MEAN CORPUSCULAR HEMOGLOBIN 33 pg (25-34); MEAN CORPUSCULAR HGB CONC 31 g/dL (32-36); MEAN CORPUSCULAR VOLUME 107 fL (80-99); MEAN PLATELET VOLUME 9.3 fL (9.0-12.2); MONOCYTES # (AUTO) 0.8 10^3/uL (0.0-1.0); MONOCYTES % (AUTO) 6 % (0-12); NEUTROPHILS # (AUTO) 9.8 10^3/uL (1.8-7.8); NEUTROPHILS % (AUTO) 68 % (42-75); PLATELET COUNT 248 10^3/uL (130-400); WHITE BLOOD COUNT 14.4 10^3/uL (4.3-11.0)
[2021-12-31 05:26] LABS: ALBUMIN 2.5 GM/DL (3.2-4.5); POTASSIUM 3.2 MMOL/L (3.6-5.0)
[2021-12-31 05:28] LABS: CALCIUM 7.8 MG/DL (8.5-10.1)
[2021-12-31 05:29] LABS: TOTAL PROTEIN 4.8 GM/DL (6.4-8.2)
[2021-12-31 05:31] LABS: BILIRUBIN,TOTAL 0.6 MG/DL (0.1-1.0)
[2021-12-31 05:32] LABS: PHOSPHORUS 1.3 MG/DL (2.3-4.7)
[2021-12-31 05:33] LABS: CREATININE SERUM 0.61 MG/DL (0.60-1.30)
[2021-12-31 05:36] LABS: MAGNESIUM 1.4 MG/DL (1.6-2.4)
[2021-12-31] MEDS: MAGNESIUM 1 GM/100 ML IVPB 100 ML IV SCH ×4 (06:05→07:13)
[2021-12-31] MEDS: POTASSIUM CL 10MEQ/50ML IVPB 50 ML IV SCH ×5 (06:13→08:19)
[2021-12-31] MEDS: KCL 20 MEQ TAB (K-DUR) PO SCH (06:50)
[2021-12-31] MEDS ORDERED: POTASSIUM PHOSPHATE INJ 30 MM in NS (IVPB) 250 ML IV NR (07:26)
[2021-12-31] MEDS: RT-ALBUTEROL/IPRATROPIUM 3 ML (DUONEB) VIAL INH SCH ×2 (08:09→21:19)
[2021-12-31] MEDS: LORazepam INJ 2 MG/ML (ATIVAN) VIAL IVP PRN ×2 (09:01→20:54)
--- NOTE | 2021-12-31 09:05 | Tele-ICU Progress Note ---
Subjective Date Seen by a Provider: Dec 31, 2021 Time Seen by a Provider: 09:05 Subjective/Events-last exam Today is a postop day 2 for this woman who underwent exploratory laparotomy and replacement of G-tube adhesion lysis, colon resection with end colostomy and partial omentectomy. She was on the surgical floor and she developed a last night shortness of breath, and there is some feculent material coming out of her G-tube and also there is some blood in the colostomy. Now those symptoms resolved and breathing better. Denies any chest pain. Review of Systems ROS PER RN Sepsis Event Evaluation Height, Weight, BMI Height: 4'11.00" Weight: 98lbs. 14.4oz. 44.445911lj; 25.56 BMI Method:Stated Focused Exam Lactate Level 12/30/21 20:04: Lactic Acid Level 1.65 Exam Exam Patient acknowledged, consented, and participated in this virtual visit which was conducted using real time audio/video Vital Signs Date Time Temp Pulse Resp B/P (MAP) Pulse Ox O2 Delivery O2 Flow Rate FiO2 12/31/21 08:09 98 Nasal Cannula 1.00 12/31/21 08:00 115 10 98 Nasal Cannula 3.00 12/31/21 07:00 121 12/31/21 07:00 114 19 122/73 (89) 98 Nasal Cannula 3.00 12/31/21 06:00 128 10 119/85 (96) 97 Nasal Cannula 3.00 12/31/21 05:00 114 12 137/82 (100) 98 Nasal Cannula 3.00 12/31/21 04:00 131 12 139/81 (100) 98 Nasal Cannula 3.00 12/31/21 04:00 98 Nasal Cannula 1.00 12/31/21 03:00 121 18 117/74 (88) 98 Nasal Cannula 3.00 12/31/21 02:00 124 17 110/70 (83) 98 Nasal Cannula 3.00 12/31/21 01:00 125 12/31/21 01:00 125 16 109/70 (83) 98 Nasal Cannula 3.00 12/31/21 00:16 97 Nasal Cannula 1.00 12/31/21 00:00 117 17 118/71 (87) 99 Nasal Cannula 3.00 12/30/21 23:00 122 12 116/69 (85) 98 Nasal Cannula 3.00 12/30/21 22:00 122 16 122/70 (87) 99 Nasal Cannula 3.00 12/30/21 21:00 121 17 117/78 (91) 99 Nasal Cannula 3.00 12/30/21 20:45 131 16 123/78 (93) 98 Nasal Cannula 3.00 12/30/21 20:32 98 Nasal Cannula 1.00 12/30/21 20:30 130 10 127/79 (95) 98 Nasal Cannula 3.00 12/30/21 20:26 128 12/30/21 20:15 135 18 127/79 (95) 98 Nasal Cannula 3.00 12/30/21 19:44 36.7 134 21 132/76 (94) 98 Nasal Cannula 3.00 12/30/21 16:27 37.0 119 22 120/84 (96) 98 Nasal Cannula 3.00 12/30/21 15:31 124 98 32 12/30/21 14:23 99 Nasal Cannula 3.00 I & O 12/31/21 07:00 Intake Total 1100 ml Output Total 500 ml Balance 600 ml Height & Weight Height: 4'11.00" Weight: 98lbs. 14.4oz. 44.935776ji; 25.56 BMI Method:Stated General Appearance: No Apparent Distress, WD/WN HEENT: PERRL/EOMI Neck: Non Tender, Supple Respiratory: Normal Breath Sounds (anterior listening posts only. On 2L NC), No Accessory Muscle Use, No Respiratory Distress Cardiovascular: Regular Rate, Rhythm, No Murmur, Normal Peripheral Pulses Capillary Refill: Less Than 3 Seconds Peripheral Pulses: 2+ Radial Pulses (R), 2+ Radial Pulses (L) Gastrointestinal: tenderness, other (Ostomy pink and patent; stool in bag. Still having leakage around base of J-tube) Extremity: No Pedal Edema Neurologic/Psychiatric: Depressed Affect Skin: Pallor Other comments PE PER RN Results Lab Laboratory Tests 12/30/21 06:15 12/30/21 20:04 12/30/21 20:17 12/31/21 04:16 Assessment/Plan Assessment/Plan 1. Small bowel obstruction and large bowel obstruction secondary to adhesions. Status post exploratory laparotomy postop day 2 with resection of colon status post heart months pouch placement. 2. Postop respiratory distress improved. 3. Possible sepsis with leukocytosis on broad-spectrum antibiotic. 4. Elevated liver enzymes we will continue to monitor. 5. History of asthma currently stable. Recommendations 1. Continue hydration 2. IV antibiotics with Zosyn per general surgery recommendation 3. DVT prophylaxis and ulcer prophylaxis. 4. Nebulizer treatment on a as needed basis 5. Monitor electrolytes, BUN/creatinine and hemoglobin. Critical Care: Critically Ill Patient Time spent with patient (mins): 25 CARO BALDERAS MD Dec 31, 2021 09:05
--- NOTE | 2021-12-31 09:10 | Progress Note ---
Subjective Subjective/Events-last exam Moved to ICU overnight with persistent tachycardia, concern for developing sepsis, started Zosyn. Lactic acid okay. She is still complaining of severe pain this morning. Focused Exam Lactate Level 12/30/21 20:04: Lactic Acid Level 1.65 Objective Exam Last Set of Vital Signs Vital Signs Date Time Temp Pulse Resp B/P (MAP) Pulse Ox O2 Delivery O2 Flow Rate FiO2 12/31/21 09:00 121 13 120/74 (89) 97 Nasal Cannula 1.00 12/30/21 19:44 36.7 12/30/21 15:31 32 Capillary Refill : Less Than 3 Seconds I&O Intake and Output 12/31/21 00:00 Intake Total 1000 ml Output Total 475 ml Balance 525 ml Intake Oral 0 ml IV Total 1000 ml Output Urine Total 475 ml General: Alert, Mild Distress Lungs: Clear to Auscultation Heart: Other (tachycardic) Abdomen: Other (esophageal drain tube in place from cervical area, G/J tube in place with green drainage around site, ostomy in place with dark blood in bag) Extremities: Other (edema in arms, no edema in legs, feet cold to touch but pedal pulses 2+) Neuro: Normal Speech Psych/Mental Status: Other (flat affect) Results/Procedures Lab Laboratory Tests 12/30/21 20:04: White Blood Count 15.5H, Red Blood Count 3.52L, Hemoglobin 11.8, Hematocrit 38, Mean Corpuscular Volume 108H, Mean Corpuscular Hemoglobin 34, Mean Corpuscular Hemoglobin Concent 31L, Red Cell Distribution Width 11.8, Platelet Count 288, Mean Platelet Volume 9.2, Lactic Acid Level 1.65 12/30/21 20:17: Sodium Level 137, Potassium Level 3.5L, Chloride Level 106, Carbon Dioxide Level 20L, Anion Gap 11, Blood Urea Nitrogen 11, Creatinine 0.61, Estimat Glomerular Filtration Rate 103, BUN/Creatinine Ratio 18, Glucose Level 148H, Calcium Level 7.8L, Corrected Calcium 9.0, Total Bilirubin 0.6, Aspartate Amino Transf (AST/SGOT) 46H, Alanine Aminotransferase (ALT/SGPT) 60H, Alkaline Phosphatase 83, Total Protein 4.9L, Albumin 2.5L 12/31/21 04:16: White Blood Count 14.4H, Red Blood Count 3.49L, Hemoglobin 11.6, Hematocrit 37, Mean Corpuscular Volume 107H, Mean Corpuscular Hemoglobin 33, Mean Corpuscular Hemoglobin Concent 31L, Red Cell Distribution Width 11.7, Platelet Count 248, Mean Platelet Volume 9.3, Sodium Level 138, Potassium Level 3.2L, Chloride Level 106, Carbon Dioxide Level 20L, Anion Gap 12, Blood Urea Nitrogen 10, Creatinine 0.61, Estimat Glomerular Filtration Rate 103, BUN/Creatinine Ratio 16, Glucose Level 139H, Calcium Level 7.8L, Corrected Calcium 9.0, Total Bilirubin 0.6, Aspartate Amino Transf (AST/SGOT) 56H, Alanine Aminotransferase (ALT/SGPT) 72H, Alkaline Phosphatase 94, Total Protein 4.8L, Albumin 2.5L, Immature Granulocyte % (Auto) 1, Neutrophils (%) (Auto) 68, Lymphocytes (%) (Auto) 25, Monocytes (%) (Auto) 6, Eosinophils (%) (Auto) 0, Basophils (%) (Auto) 0, Neutrophils # (Auto) 9.8H, Lymphocytes # (Auto) 3.5, Monocytes # (Auto) 0.8, Eosinophils # (Auto) 0.1, Basophils # (Auto) 0.1, Immature Granulocyte # (Auto) 0.2H, Phosphorus Level 1.3L, Magnesium Level 1.4L Microbiology 12/27/21 Blood Culture - Preliminary, Resulted No growth Radiology Date of Exam:12/27/21 CT ABDOMEN/PELVIS WO EXAMINATION: CT abdomen and pelvis without contrast. TECHNIQUE: Multiple contiguous axial images were obtained through the abdomen and pelvis without the use of intravenous contrast. All CT scans use one or more of the following dose optimizing techniques: automated exposure control, MA and/or KvP adjustment based on patient size and exam type or iterative reconstruction. HISTORY: Bowel obstruction COMPARISON: 11/20/2019 FINDINGS: Lung bases: Bibasilar dependent atelectasis. Solid organs: The liver is normal. The gallbladder is surgically absent. There is no biliary ductal dilation. Pancreas is normal. Spleen is normal. Adrenal glands are normal. The kidneys are normal without visualized calculus or hydronephrosis. Bowel: There are multiple dilated loops of small bowel which measure up to 4.1 cm. Possible transition point within the right lower quadrant. There is diffuse dilatation of the colon with fluid seen throughout. Peritoneum: There is no intraperitoneal free fluid or free air. No suspicious lymphadenopathy. Vasculature: Calcification of the aorta without aneurysm. Musculoskeletal: No suspicious osseous lesion or compression fracture. Pelvis: The uterus is surgically absent. No adnexal mass. The urinary bladder is normal. IMPRESSION: 1. Findings concerning for small bowel obstruction with a possible transition point in the right lower quadrant. 2. Fluid distention of the colon which can be seen with diarrheal state. Dictated by: Dictated on workstation # [id number] Dict: 12/27/21 1330 Trans: 12/27/21 133 CV [id number] Interpreted by: ADITYA MARQUEZ DO Electronically signed by: ADITYA MARQUEZ DO 12/27/21 [id number] Assessment/Plan Assessment/Plan (1) Acute kidney injury Status: Resolved Assessment & Plan: Secondary to dehydration related to SBO, resolved overnight with IVF. (2) Small bowel obstruction Status: Acute Assessment & Plan: Bowel rest, pain control, IVF. Surgery consulted, appreciate recommendations. 12/30- s/p colon resection with end colostomy, lysis of adhesions and partial omentectomy last night 12/31- started Zosyn and transferred to ICU, lactic acid okay, BP okay but remains tachycardic, possibly due to pain, resume home fentanyl patch but will start at 50 mcg given the unclear history of consistent use. (3) Elevated liver enzymes Status: Acute Assessment & Plan: Elevated bilirubin, AST, ALT on admit, resolved overnight. 12/31 increased again post-surgery, monitor. (4) Jejunostomy present Status: Chronic Assessment & Plan: Uses jejeunostomy tube for enteral feedings typically and g tube for venting. Still having some drainage around tube. (5) Gastrostomy tube in place (6) Chronic pain Status: Chronic Assessment & Plan: IV morphine for now due to SBO. On oxycodone at home, reportedly on fentanyl patches but would have run out if using regularly, previously also on morphine in addition to these two, but this was stopped, per her primary they were working toward tapering in anticipate of future procedures for her esophageal complications. 12/31 restart fentanyl patch at 50 mcg (prevoius home dose 100 mcg, but last fill in August making unclear how often and how much she was using) (7) DVT prophylaxis Status: Acute Assessment & Plan: Enoxaparin LURDES PARTIDA MD Dec 31, 2021 09:10
[2021-12-31] MEDS: fentaNYL PATCH 50 MCG (DURAGESIC) TD SCH (09:38)
--- NOTE | 2021-12-31 09:46 | Progress Note - Surgery ---
OJSH MYLES 12/31/21 0946: Subjective Date Seen by a Provider: Dec 31, 2021 Time Seen by a Provider: 07:35 Subjective/Events-last exam Patient was transferred to the ICU last night after developing tachycarda and increasing leukocytosis, meeting sepsis criteria. Patient was placed on pip/tazo . Patient currently states she doesn't feel well. She states she had increasing dyspnea and pain last night before they transferred her to the ICU. States her breathing is back to her baseline now. She is still having breakthrough pain, and is wanting to know if there is something else we can try for the pain. Her pulse is in the 120's when I was in the room, on telemetry it appears to be sinus tachycardia. Her WBC count was 15.5 last night is now 14.4 Her stoma is patent and pink. Her colostomy bag contains a good amount of blood. Her RN let me know that she was bleeding from her j-tube last night as well. It doesn't appear to be bleeding right now. Review of Systems General: No Chills, No Night Sweats HEENT: No Head Aches, No Visual Changes Pulmonary: Dyspnea (last night, at baseline now), Cough Cardiovascular: No: Chest Pain, Palpitations Gastrointestinal: Abdominal Pain; No: Nausea, Vomiting Focused Exam Lactate Level 12/30/21 20:04: Lactic Acid Level 1.65 Objective Exam Vital Signs Date Time Temp Pulse Resp B/P (MAP) Pulse Ox O2 Delivery O2 Flow Rate FiO2 12/31/21 09:00 121 13 120/74 (89) 97 Nasal Cannula 1.00 12/31/21 08:09 98 Nasal Cannula 1.00 12/31/21 08:00 115 10 98 Nasal Cannula 3.00 12/31/21 07:00 121 12/31/21 07:00 114 19 122/73 (89) 98 Nasal Cannula 3.00 12/31/21 06:00 128 10 119/85 (96) 97 Nasal Cannula 3.00 12/31/21 05:00 114 12 137/82 (100) 98 Nasal Cannula 3.00 12/31/21 04:00 131 12 139/81 (100) 98 Nasal Cannula 3.00 12/31/21 04:00 98 Nasal Cannula 1.00 12/31/21 03:00 121 18 117/74 (88) 98 Nasal Cannula 3.00 12/31/21 02:00 124 17 110/70 (83) 98 Nasal Cannula 3.00 12/31/21 01:00 125 12/31/21 01:00 125 16 109/70 (83) 98 Nasal Cannula 3.00 12/31/21 00:16 97 Nasal Cannula 1.00 12/31/21 00:00 117 17 118/71 (87) 99 Nasal Cannula 3.00 12/30/21 23:00 122 12 116/69 (85) 98 Nasal Cannula 3.00 12/30/21 22:00 122 16 122/70 (87) 99 Nasal Cannula 3.00 12/30/21 21:00 121 17 117/78 (91) 99 Nasal Cannula 3.00 12/30/21 20:45 131 16 123/78 (93) 98 Nasal Cannula 3.00 12/30/21 20:32 98 Nasal Cannula 1.00 12/30/21 20:30 130 10 127/79 (95) 98 Nasal Cannula 3.00 12/30/21 20:26 128 12/30/21 20:15 135 18 127/79 (95) 98 Nasal Cannula 3.00 12/30/21 19:44 36.7 134 21 132/76 (94) 98 Nasal Cannula 3.00 12/30/21 16:27 37.0 119 22 120/84 (96) 98 Nasal Cannula 3.00 12/30/21 15:31 124 98 32 12/30/21 14:23 99 Nasal Cannula 3.00 I & O 12/31/21 07:00 Intake Total 1100 ml Output Total 500 ml Balance 600 ml Capillary Refill : Less Than 3 Seconds General Appearance: Chronically ill, Mild Distress HEENT: PERRL/EOMI Neck: Supple Respiratory: Lungs Clear (anterior posts only), Normal Breath Sounds (anterior listening posts only. On 2L NC), No Accessory Muscle Use, No Respiratory Distress Cardiovascular: No Murmur, Normal Peripheral Pulses, Tachycardia Peripheral Pulses: 2+ Radial Pulses (R), 2+ Radial Pulses (L) Gastrointestinal: soft; No distended (patient also denies feeling bloated); tenderness (mild tenderness near surgical sites; patient states it hurts bad), other (Ostomy pink and patent; stool in bag. Still having leakage around base of J-tube) Extremity: No Calf Tenderness, Pedal Edema (1+ bilat), Other Neurologic/Psychiatric: Alert, Oriented x3, Depressed Affect Skin: Pallor Results Lab Laboratory Tests 12/30/21 20:04: White Blood Count 15.5H, Red Blood Count 3.52L, Hemoglobin 11.8, Hematocrit 38, Mean Corpuscular Volume 108H, Mean Corpuscular Hemoglobin 34, Mean Corpuscular Hemoglobin Concent 31L, Red Cell Distribution Width 11.8, Platelet Count 288, Mean Platelet Volume 9.2, Lactic Acid Level 1.65 12/30/21 20:17: Sodium Level 137, Potassium Level 3.5L, Chloride Level 106, Carbon Dioxide Level 20L, Anion Gap 11, Blood Urea Nitrogen 11, Creatinine 0.61, Estimat Glomerular Filtration Rate 103, BUN/Creatinine Ratio 18, Glucose Level 148H, Calcium Level 7.8L, Corrected Calcium 9.0, Total Bilirubin 0.6, Aspartate Amino Transf (AST/SGOT) 46H, Alanine Aminotransferase (ALT/SGPT) 60H, Alkaline Phosphatase 83, Total Protein 4.9L, Albumin 2.5L 12/31/21 04:16: White Blood Count 14.4H, Red Blood Count 3.49L, Hemoglobin 11.6, Hematocrit 37, Mean Corpuscular Volume 107H, Mean Corpuscular Hemoglobin 33, Mean Corpuscular Hemoglobin Concent 31L, Red Cell Distribution Width 11.7, Platelet Count 248, Mean Platelet Volume 9.3, Sodium Level 138, Potassium Level 3.2L, Chloride Level 106, Carbon Dioxide Level 20L, Anion Gap 12, Blood Urea Nitrogen 10, Creatinine 0.61, Estimat Glomerular Filtration Rate 103, BUN/Creatinine Ratio 16, Glucose Level 139H, Calcium Level 7.8L, Corrected Calcium 9.0, Total Bilirubin 0.6, Aspartate Amino Transf (AST/SGOT) 56H, Alanine Aminotransferase (ALT/SGPT) 72H, Alkaline Phosphatase 94, Total Protein 4.8L, Albumin 2.5L, Immature Granulocyte % (Auto) 1, Neutrophils (%) (Auto) 68, Lymphocytes (%) (Auto) 25, Monocytes (%) (Auto) 6, Eosinophils (%) (Auto) 0, Basophils (%) (Auto) 0, Neutrophils # (Auto) 9.8H, Lymphocytes # (Auto) 3.5, Monocytes # (Auto) 0.8, Eosinophils # (Auto) 0.1, Basophils # (Auto) 0.1, Immature Granulocyte # (Auto) 0.2H, Phosphorus Level 1.3L, Magnesium Level 1.4L Microbiology 12/27/21 Blood Culture - Preliminary, Resulted No growth Assessment/Plan Assessment/Plan Assessment/Plan Partial Small Bowel Obstruction \ Large bowel obstruction - S/P day 2 ex lap w/ end colostomy for potential diverticular stricture/mass, awaiting pathology Sepsis, leukocytosis and tachycardia. - Started patient on pip/tazo, white count down this morning, heart rate still up, consider rate control with medication Hypokalemia Extensive history of abdominal surgery with Jejunostomy tube placement Hypertension Tachycardia Elevated LFT's, continue to monitor Chronic low back pain Asthma Plan Pip/Tazo Continue IVF Continue Zofran for nausea control Pain management KCl replacement Breathing treatments PRN Patient status post day 2 ex lap with end colostomy. Discussed with patient's family yesterday that this colostomy doesn't need to be permanent and can be reversed if patient is able to get her strength up. Ideally at when they do her esophageal reversal. Patient states her abdomen does feel less distended and painful than before the surgery, but that she is having pain at her incision sites. Encourage pt to ambulate and use IS. Will continue to monitor her WBC's and tachycardia. WBC counts are currently trending down. If her tachycardia does not start to show signs of improvement could consider rate control low does B- brennon or non-dihydropyridine CCB as her BP tolerates. CHRISTO BRAGG DO 12/31/21 1557: Subjective Time Seen by a Provider: 10:25 Subjective/Events-last exam Pt seen and examined, doing much better than yesterday. Main complaint is of pain. Review of Systems Pulmonary: Dyspnea (last night, at baseline now), Cough Cardiovascular: No: Chest Pain, Palpitations Gastrointestinal: Abdominal Pain; No: Nausea, Vomiting Objective Exam General Appearance: Chronically ill, Mild Distress Respiratory: Lungs Clear (anterior posts only), Normal Breath Sounds (anterior listening posts only. On 2L NC), No Accessory Muscle Use, No Respiratory Distress Cardiovascular: No Murmur, Tachycardia Gastrointestinal: soft; No distended (patient also denies feeling bloated); tenderness (mild tenderness near surgical sites; patient states it hurts bad), other (Ostomy pink and patent; stool in bag. Still having leakage around base of J-tube) Extremity: Pedal Edema (1+ bilat), Other Neurologic/Psychiatric: Depressed Affect Assessment/Plan Assessment/Plan Assessment/Plan Partial Small Bowel Obstruction \ Large bowel obstruction - S/P day 2 ex lap w/ end colostomy for potential diverticular stricture/mass, awaiting pathology Sepsis, leukocytosis and tachycardia. - Started patient on pip/tazo, white count down this morning, heart rate still up, consider rate control with medication Hypokalemia Extensive history of abdominal surgery with Jejunostomy tube placement Hypertension Tachycardia Elevated LFT's, continue to monitor Chronic low back pain Asthma Plan Pip/Tazo Continue IVF Continue Zofran for nausea control Pain management KCl replacement Breathing treatments PRN Patient status post day 2 ex lap with end colostomy. Pt looks way better than yesterday. Patient states her abdomen does feel less distended and painful than before the surgery, but that she is having pain at her incision sites. Encourage pt to ambulate and use IS. Will continue to monitor her WBC's and tachycardia. WBC counts are currently trending down. If her tachycardia does not start to show signs of improvement could consider rate control low does B-brennon or non- dihydropyridine CCB as her BP tolerates. I pulled the J-tube tighter against skin; this was part of the problem and why bile was able to leak around tube. Supervisory-Addendum Brief Verification & Attestation Participated in pt care: history, MDM, physical Personally performed: exam, history, MDM, supervision of care Care discussed with: Medical Student Procedures: n/a Verification and Attestation of Medical Student E/M Service A medical student performed and documented this service. I then reviewed and verified all information documented by the medical student and made modifications to such information, when appropriate. I personally performed a physical exam, medical decision making and then discussed any differences between the notes and made revisions as necessary to create one note. Christo Bragg , 12/31/21 , 15:56 JOSH MYLES Dec 31, 2021 09:46 CHRISTO BRAGG DO Dec 31, 2021 15:57
[2021-12-31] MEDS ORDERED: NON-FORMULARY MEDICATION 1 EA EA (Oxycodone HCl 10 MG) JT PRN (15:45)
[2021-12-31] MEDS: ENOXAPARIN 40 MG/0.4 ML (LOVENOX) SYR SC SCH (16:58)
[2021-12-31] MEDS: ONDANSETRON 4 MG/2 ML (SDV) Z0FRAN IVP PRN (16:58)
[2022-01-01] VITALS (17 sets, daily range): BP systolic 97–123; BP diastolic 60–83
[2022-01-01] MEDS: morphine INJ 4 MG/ML 1 ML (VIAL/SYRINGE) IV PRN ×4 (00:04→08:06)
[2022-01-01] MEDS: D5 1/2 NS 1000 ML IV SOLUTION 1,000 ML IV SCH ×4 (01:33→22:35)
[2022-01-01] MEDS: PIPERACILLIN SODIUM/TAZOBACTAM 4.5 GM in NS (IVPB) 100 ML IV SCH ×3 (03:48→19:56)
[2022-01-01 04:27] LABS: BASOPHILS % (AUTO) 0 % (0-10); EOSINOPHILS # (AUTO) 0.2 10^3/uL (0.0-0.3); EOSINOPHILS % (AUTO) 1 % (0-10); HEMATOCRIT 28 % (35-52); HEMOGLOBIN 9.1 g/dL (11.5-16.0); LYMPHOCYTES # (AUTO) 2.4 10^3/uL (1.0-4.0); LYMPHOCYTES % (AUTO) 23 % (12-44); MEAN CORPUSCULAR HEMOGLOBIN 34 pg (25-34); MEAN CORPUSCULAR HGB CONC 33 g/dL (32-36); MEAN CORPUSCULAR VOLUME 103 fL (80-99); MEAN PLATELET VOLUME 9.1 fL (9.0-12.2); MONOCYTES # (AUTO) 0.5 10^3/uL (0.0-1.0); MONOCYTES % (AUTO) 4 % (0-12); NEUTROPHILS # (AUTO) 7.2 10^3/uL (1.8-7.8); NEUTROPHILS % (AUTO) 69 % (42-75); PLATELET COUNT 206 10^3/uL (130-400); WHITE BLOOD COUNT 10.4 10^3/uL (4.3-11.0)
[2022-01-01 04:37] LABS: ALBUMIN 1.9 GM/DL (3.2-4.5); POTASSIUM 3.2 MMOL/L (3.6-5.0)
[2022-01-01 04:38] LABS: CALCIUM 7.2 MG/DL (8.5-10.1)
[2022-01-01 04:41] LABS: BILIRUBIN,TOTAL 0.4 MG/DL (0.1-1.0)
[2022-01-01 04:43] LABS: CREATININE SERUM 0.57 MG/DL (0.60-1.30); PHOSPHORUS 1.9 MG/DL (2.3-4.7)
[2022-01-01 04:46] LABS: MAGNESIUM 1.5 MG/DL (1.6-2.4)
[2022-01-01] MEDS: MAGNESIUM 1 GM/100 ML IVPB 100 ML IV SCH ×3 (05:08→06:16)
[2022-01-01] MEDS: POTASSIUM CL 10MEQ/50ML IVPB 50 ML IV SCH ×3 (05:08→06:16)
--- NOTE | 2022-01-01 06:14 | Progress Note - Hospitalist ---
Subjective HPI/CC On Admission Date Seen by Provider: Jan 01, 2022 Time Seen by Provider: 11:30 Subjective/Events-last exam Patient doing a lot better Moving to fourth floor today Pain is much more controlled Overall severe debility noted Lethargic Review of Systems General: Fatigue, Malaise Gastrointestinal: Abdominal Pain Focused Exam Lactate Level 12/30/21 20:04: Lactic Acid Level 1.65 Objective Exam Vital Signs Vital Signs Date Time Temp Pulse Resp B/P (MAP) Pulse Ox O2 Delivery O2 Flow Rate FiO2 01/02/22 03:45 36.3 113 18 122/82 (95) 95 Room Air 01/01/22 12:00 1.00 12/30/21 15:31 32 Capillary Refill : Less Than 3 Seconds General Appearance: No Apparent Distress, WD/WN, Chronically ill Respiratory: No Accessory Muscle Use, No Respiratory Distress, Decreased Breath Sounds Cardiovascular: Regular Rate, Rhythm Neurologic/Psychiatric: Alert, Oriented x3 Results/Procedures Lab Laboratory Tests 01/02/22 04:57 Patient resulted labs reviewed. Assessment/Plan Assessment and Plan Assess & Plan/Chief Complaint Assessment: Acute kidney injury Tachycardia episodes suspicion for sepsis transfer to ICU for 12/31/21 Status post small bowel obstruction required lysis of adhesions and partial omentectomy 12/29/2021 Colostomy status Jejunostomy tube status Tracheostomy status Chronic pain Severe debility Plan: Transfer to fourth floor Maintain antibiotics empirically Supportive care Critical Care Critically Ill Patient BSIHOP VAN DO Jan 01, 2022 06:14
[2022-01-01] MEDS: KCL 20 MEQ TAB (K-DUR) PO SCH (06:16)
[2022-01-01] MEDS: RT-ALBUTEROL/IPRATROPIUM 3 ML (DUONEB) VIAL INH SCH ×2 (06:46→18:32)
[2022-01-01] MEDS ORDERED: POTASSIUM PHOSPHATE INJ 30 MM in NS (IVPB) 250 ML IV ONE (07:30)
[2022-01-01] MEDS: LORazepam INJ 2 MG/ML (ATIVAN) VIAL IVP PRN ×2 (08:05→21:45)
--- NOTE | 2022-01-01 09:34 | Progress Note - Surgery ---
JOSH MYLES 01/01/22 0934: Subjective Date Seen by a Provider: Jan 01, 2022 Time Seen by a Provider: 08:30 Subjective/Events-last exam Patient lying in bed when I entered the room. Patient states she feels about the same as yesterday. Still having some leakage from her J-tube, appears to be g astric contents. Her colostomy bag is filled with stool mixed with some maroon blood. Stoma appears pink and patent. Review of Systems General: No Chills, No Night Sweats HEENT: No Head Aches, No Visual Changes Pulmonary: Dyspnea; No Cough Cardiovascular: No: Chest Pain, Palpitations Gastrointestinal: Nausea, Abdominal Pain; No: Vomiting Genitourinary: No Dysuria, No Frequency; Other (states like she feels like she has to urinate; explained this could be from her catheter) Musculoskeletal: back pain Focused Exam Lactate Level 12/30/21 20:04: Lactic Acid Level 1.65 Objective Exam Vital Signs Date Time Temp Pulse Resp B/P (MAP) Pulse Ox O2 Delivery O2 Flow Rate FiO2 01/01/22 08:00 36.0 01/01/22 08:00 108 17 103/60 (74) 98 Nasal Cannula 1.00 01/01/22 07:00 117 01/01/22 07:00 114 14 113/62 (79) 98 Nasal Cannula 1.00 01/01/22 06:46 97 Nasal Cannula 1.00 01/01/22 06:00 112 15 110/66 (81) 97 Nasal Cannula 1.00 01/01/22 05:00 104 18 102/62 (75) 97 Nasal Cannula 1.00 01/01/22 04:00 96 Nasal Cannula 1.00 01/01/22 04:00 112 17 111/60 (77) 98 Nasal Cannula 1.00 01/01/22 03:00 105 17 111/64 (80) 99 Nasal Cannula 1.00 01/01/22 02:00 101 20 103/69 (80) 98 Nasal Cannula 1.00 01/01/22 01:00 106 22 105/60 (75) 99 Nasal Cannula 1.00 01/01/22 01:00 109 01/01/22 00:00 97 Nasal Cannula 1.00 01/01/22 00:00 105 18 111/64 (80) 97 Nasal Cannula 1.00 01/01/22 00:00 37.1 12/31/21 23:00 122 20 108/68 (81) 97 Nasal Cannula 1.00 12/31/21 22:00 113 18 102/74 (83) 97 Nasal Cannula 1.00 12/31/21 21:19 99 Nasal Cannula 1.00 12/31/21 21:00 113 17 125/79 (94) 98 Nasal Cannula 1.00 12/31/21 20:00 112 18 117/79 (92) 98 Nasal Cannula 1.00 12/31/21 20:00 98 Nasal Cannula 1.00 12/31/21 20:00 36.2 12/31/21 19:00 Nasal Cannula 1.00 12/31/21 19:00 106 18 103/60 (74) 98 Nasal Cannula 1.00 12/31/21 19:00 109 12/31/21 18:00 111 9 111/66 (81) 98 Nasal Cannula 1.00 12/31/21 17:00 111 10 133/73 (93) 97 Nasal Cannula 1.00 12/31/21 16:34 98 Nasal Cannula 1.00 12/31/21 16:00 112 9 122/72 (89) 97 Nasal Cannula 1.00 12/31/21 16:00 36.2 12/31/21 15:00 115 11 111/73 (86) 96 Nasal Cannula 1.00 12/31/21 14:00 114 19 101/71 (81) 97 Nasal Cannula 1.00 12/31/21 13:00 122 12 97 Nasal Cannula 1.00 12/31/21 12:53 114 12/31/21 12:15 98 Nasal Cannula 1.00 12/31/21 12:00 113 24 98 Nasal Cannula 1.00 12/31/21 11:00 114 19 97 Nasal Cannula 1.00 12/31/21 10:00 116 21 128/73 (91) 98 Nasal Cannula 1.00 I & O 01/01/22 07:00 Intake Total 3290 ml Output Total 2250 ml Balance 1040 ml Capillary Refill : Less Than 3 Seconds General Appearance: No Apparent Distress, Chronically ill HEENT: PERRL/EOMI Neck: Non Tender, Supple Respiratory: Lungs Clear (anterior posts only), Normal Breath Sounds (anterior listening posts only. On 1L NC), No Accessory Muscle Use, No Respiratory Distress Cardiovascular: No Murmur, Normal Peripheral Pulses, Tachycardia Peripheral Pulses: 2+ Radial Pulses (R), 2+ Radial Pulses (L) Gastrointestinal: soft, distended (patient also denies feeling bloated), tenderness (mild tenderness near surgical sites), other (Ostomy pink and patent; stool in bag. Still having some leakage at base of J-tube) Extremity: Non Tender, No Calf Tenderness, Pedal Edema (1+ bilat), Other (SCD's in place) Neurologic/Psychiatric: Alert, Oriented x3, Depressed Affect Skin: Pallor Results Lab Laboratory Tests 12/31/21 11:27: Glucometer 121H 01/01/22 04:17: White Blood Count 10.4, Red Blood Count 2.69L, Hemoglobin 9.1#L, Hematocrit 28L, Mean Corpuscular Volume 103H, Mean Corpuscular Hemoglobin 34, Mean Corpuscular Hemoglobin Concent 33, Red Cell Distribution Width 11.8, Platelet Count 206, Mean Platelet Volume 9.1, Immature Granulocyte % (Auto) 2, Neutrophils (%) (A uto) 69, Lymphocytes (%) (Auto) 23, Monocytes (%) (Auto) 4, Eosinophils (%) (Auto) 1, Basophils (%) (Auto) 0, Neutrophils # (Auto) 7.2, Lymphocytes # (Auto) 2.4, Monocytes # (Auto) 0.5, Eosinophils # (Auto) 0.2, Basophils # (Auto) 0.0, Immature Granulocyte # (Auto) 0.2H, Sodium Level 133L, Potassium Level 3.2L, Chloride Level 104, Carbon Dioxide Level 20L, Anion Gap 9, Blood Urea Nitrogen 6L, Creatinine 0.57L, Estimat Glomerular Filtration Rate 105, BUN/Creatinine Ratio 11, Glucose Level 134H, Calcium Level 7.2L, Corrected Calcium 8.9, Phosphorus Level 1.9L, Magnesium Level 1.5L, Total Bilirubin 0.4, Aspartate Amino Transf (AST/SGOT) 31, Alanine Aminotransferase (ALT/SGPT) 53, Alkaline Phosphatase 82, Total Protein 4.0L, Albumin 1.9L Microbiology 12/31/21 MRSA Screen - Final, Complete MRSA not isolated 12/30/21 Blood Culture - Preliminary, Resulted No growth Assessment/Plan Assessment/Plan Assessment/Plan Partial Small Bowel Obstruction \\ Large bowel obstruction - S/P day 3 ex lap w/ end colostomy for potential diverticular stricture/mass, awaiting pathology Sepsis - leukocytosis resolved, patient no longer meets criteria - Started patient on pip/tazo, white count down to 10.4 this morning heart rate still up, consider rate control with medication Anemia - Hgb 9.1 this morning Hypokalemia Extensive history of abdominal surgery with Jejunostomy tube placement Hypertension Tachycardia Elevated LFT's, continue to monitor Chronic low back pain Asthma Plan Pip/Tazo Continue IVF Continue Zofran for nausea control Pain management KCl replacement Breathing treatments PRN Patient status post day 3 ex lap with end colostomy. Patient states her abdomen does feel less distended and painful than before the surgery, but that she is having pain at her incision sites. Encourage pt to ambulate, use IS, and sit up in her chair, as she is currently not. Will continue to monitor her WBC's and tachycardia. WBC counts are currently trending down. If her tachycardia does not start to show signs of improvement could consider rate control low does B- brennon or non-dihydropyridine CCB as her BP tolerates. Patient's urine output was 0.75 ml/kg/hr, can remove her catheter. Patient could be moved to the floor today. CHRISTO BRAGG DO 01/01/22 1455: Subjective Time Seen by a Provider: 11:08 Subjective/Events-last exam Pt seen and examined, states she is doing ok. Looks about the same as . Nurse states she is asking for pain meds "like clockwork and always states pain is 10 out of 10". Review of Systems General: No Chills, No Night Sweats; Fatigue Pulmonary: Dyspnea; No Cough Cardiovascular: No: Chest Pain, Palpitations Gastrointestinal: Nausea, Abdominal Pain; No: Vomiting Genitourinary: Other (states like she feels like she has to urinate; explained this could be from her catheter) Musculoskeletal: back pain (chronic) Objective Exam General Appearance: No Apparent Distress, Chronically ill Respiratory: Lungs Clear (anterior posts only), Normal Breath Sounds (anterior listening posts only. On 1L NC), No Accessory Muscle Use, No Respiratory Distress Cardiovascular: No Murmur, Tachycardia Gastrointestinal: soft, distended (patient also denies feeling bloated), tenderness (mild tenderness near surgical sites), other (Ostomy pink and patent; stool in bag. Still having some leakage at base of J-tube) Extremity: Pedal Edema (1+ bilat), Other (SCD's in place) Neurologic/Psychiatric: Depressed Affect Assessment/Plan Assessment/Plan Assessment/Plan Partial Small Bowel Obstruction \\ Large bowel obstruction - S/P day 3 ex lap w/ end colostomy for potential diverticular stricture/mass, awaiting pathology Sepsis - leukocytosis resolved, patient no longer meets criteria - Started pat ient on pip/tazo, white count down to 10.4 this morning heart rate still up, consider rate control with medication Anemia - Hgb 9.1 this morning Hypokalemia Extensive history of abdominal surgery with Jejunostomy tube placement and spit fistula for upper esophagus Hypertension Tachycardia Elevated LFT's, continue to monitor Chronic low back pain Asthma Plan Pip/Tazo Continue IVF Continue Zofran for nausea control Pain management KCl replacement Breathing treatments PRN Patient status post day 3 ex lap with end colostomy. Patient states her abdomen does feel less distended and painful than before the surgery, but that she is h aving pain at her incision sites. Encourage pt to ambulate, use IS, and sit up in her chair, as she is currently not. Will continue to monitor her WBC's and tachycardia. WBC counts are currently trending down. If her tachycardia does not start to show signs of improvement could consider rate control low does B- brennon or non-dihydropyridine CCB as her BP tolerates. Patient's urine output was 0.75 ml/kg/hr, can remove her catheter. Patient could be moved to the floor today. I again pulled the J-tube a little tighter and told nurse to resume trickle tube feeds. Will stop IV morphine and use just Fentanyl and Oxy. Supervisory-Addendum Brief Verification & Attestation Participated in pt care: history, MDM, physical Personally performed: exam, history, MDM, supervision of care Care discussed with: Medical Student Procedures: n/a Verification and Attestation of Medical Student E/M Service A medical student performed and documented this service. I then reviewed and verified all information documented by the medical student and made modifications to such information, when appropriate. I personally performed a physical exam, medical decision making and then discussed any differences between the notes and made revisions as necessary to create one note. Christo Bragg , 01/01/22 , 14:55 JOSH MYLES Jan 01, 2022 09:34 CHRISTO BRAGG DO Jan 01, 2022 14:55
--- NOTE | 2022-01-01 10:15 | Tele-ICU Progress Note ---
Subjective Date Seen by a Provider: Jan 01, 2022 Time Seen by a Provider: 10:15 Subjective/Events-last exam Patient is awake alert and denies any respiratory distress however she complains of constant pain despite the getting multiple opioid medications. I was wondering whether she is addicted to opioid medications. There is no active bleeding. Hemodynamically stable. Consider giving IV Toradol for pain control if okay with general surgery. Review of Systems ROS PER RN Sepsis Event Evaluation Height, Weight, BMI Height: 4'11.00" Weight: 98lbs. 14.4oz. 44.947688jo; 25.56 BMI Method:Stated Focused Exam Lactate Level 12/30/21 20:04: Lactic Acid Level 1.65 Exam Exam Patient acknowledged, consented, and participated in this virtual visit which was conducted using real time audio/video Vital Signs Date Time Temp Pulse Resp B/P (MAP) Pulse Ox O2 Delivery O2 Flow Rate FiO2 01/01/22 10:00 124 13 121/70 (87) 97 Nasal Cannula 1.00 01/01/22 09:00 112 18 97/61 (73) 99 Nasal Cannula 1.00 01/01/22 08:00 36.0 01/01/22 08:00 98 Nasal Cannula 1.00 01/01/22 08:00 108 17 103/60 (74) 98 Nasal Cannula 1.00 01/01/22 07:00 117 01/01/22 07:00 114 14 113/62 (79) 98 Nasal Cannula 1.00 01/01/22 06:46 97 Nasal Cannula 1.00 01/01/22 06:00 112 15 110/66 (81) 97 Nasal Cannula 1.00 01/01/22 05:00 104 18 102/62 (75) 97 Nasal Cannula 1.00 01/01/22 04:00 96 Nasal Cannula 1.00 01/01/22 04:00 112 17 111/60 (77) 98 Nasal Cannula 1.00 01/01/22 03:00 105 17 111/64 (80) 99 Nasal Cannula 1.00 01/01/22 02:00 101 20 103/69 (80) 98 Nasal Cannula 1.00 01/01/22 01:00 106 22 105/60 (75) 99 Nasal Cannula 1.00 01/01/22 01:00 109 01/01/22 00:00 97 Nasal Cannula 1.00 01/01/22 00:00 105 18 111/64 (80) 97 Nasal Cannula 1.00 01/01/22 00:00 37.1 12/31/21 23:00 122 20 108/68 (81) 97 Nasal Cannula 1.00 12/31/21 22:00 113 18 102/74 (83) 97 Nasal Cannula 1.00 12/31/21 21:19 99 Nasal Cannula 1.00 12/31/21 21:00 113 17 125/79 (94) 98 Nasal Cannula 1.00 12/31/21 20:00 112 18 117/79 (92) 98 Nasal Cannula 1.00 12/31/21 20:00 98 Nasal Cannula 1.00 12/31/21 20:00 36.2 12/31/21 19:00 Nasal Cannula 1.00 12/31/21 19:00 106 18 103/60 (74) 98 Nasal Cannula 1.00 12/31/21 19:00 109 12/31/21 18:00 111 9 111/66 (81) 98 Nasal Cannula 1.00 12/31/21 17:00 111 10 133/73 (93) 97 Nasal Cannula 1.00 12/31/21 16:34 98 Nasal Cannula 1.00 12/31/21 16:00 112 9 122/72 (89) 97 Nasal Cannula 1.00 12/31/21 16:00 36.2 12/31/21 15:00 115 11 111/73 (86) 96 Nasal Cannula 1.00 12/31/21 14:00 114 19 101/71 (81) 97 Nasal Cannula 1.00 12/31/21 13:00 122 12 97 Nasal Cannula 1.00 12/31/21 12:53 114 12/31/21 12:15 98 Nasal Cannula 1.00 12/31/21 12:00 113 24 98 Nasal Cannula 1.00 12/31/21 11:00 114 19 97 Nasal Cannula 1.00 I & O 01/01/22 07:00 Intake Total 3290 ml Output Total 2250 ml Balance 1040 ml Height & Weight Height: 4'11.00" Weight: 98lbs. 14.4oz. [id number]; 25.56 BMI Method:Stated General Appearance: No Apparent Distress, Chronically ill HEENT: PERRL/EOMI Neck: Non Tender, Supple Respiratory: Lungs Clear (anterior posts only), Normal Breath Sounds (anterior listening posts only. On 1L NC), No Accessory Muscle Use, No Respiratory Distress Cardiovascular: No Murmur, Normal Peripheral Pulses, Tachycardia Capillary Refill: Less Than 3 Seconds Peripheral Pulses: 2+ Radial Pulses (R), 2+ Radial Pulses (L) Gastrointestinal: soft, distended (patient also denies feeling bloated), tenderness (mild tenderness near surgical sites), other (Ostomy pink and patent; stool in bag. Still having some leakage at base of J-tube) Extremity: Non Tender, No Calf Tenderness, Pedal Edema (1+ bilat), Other (SCD's in place) Neurologic/Psychiatric: Alert, Oriented x3, Depressed Affect Skin: Pallor Other comments PE PER RN Results Lab Laboratory Tests 12/30/21 20:04 12/30/21 20:17 12/31/21 04:16 01/01/22 04:17 Assessment/Plan Assessment/Plan 1. Small bowel obstruction and large bowel obstruction secondary to adhesions. Status post exploratory laparotomy postop day 2 with resection of colon status post heart months pouch placement. 2. Postop respiratory distress improved. 3. Possible sepsis with leukocytosis on broad-spectrum antibiotic. 4. Elevated liver enzymes we will continue to monitor. 5. History of asthma currently stable. Recommendations 1. Continue hydration 2. IV antibiotics with Zosyn per general surgery recommendation 3. DVT prophylaxis and ulcer prophylaxis. 4. Nebulizer treatment on a as needed basis 5. Monitor electrolytes, BUN/creatinine and hemoglobin. Critical Care: Critically Ill Patient Time spent with patient (mins): 20 CARO BALDERAS MD Jan 01, 2022 10:15
--- NOTE | 2022-01-01 10:20 | Physical Therapy Evaluation ---
PT Evaluation-General Medical Diagnosis Admission Date Dec 27, 2021 at 14:50 Medical Diagnosis: SBO Onset Date: Dec 27, 2021 Therapy Diagnosis Therapy Diagnosis: decreased mobility, weakness Height/Weight Height (Feet): 4 Height (Inches): 11.00 Weight (Pounds): 98 Weight (Ounces): 14.4 Precautions Precautions/Isolations: Fall Prevention, Standard Precautions Weight Bear Status Right Lower Extremity: Right Full Weight Bearing Left Lower Extremity: Left Full Weight Bearing Referral Physician: Dr. Woodard Reason for Referral: Evaluation/Treatment Medical History Pertinent Medical History: GERD, HTN Current History Hiatal hernia surgery complications. Reviewed History: Yes Prior Prior Level of Function SCALE: Activities may be completed with or without assistive devices. 7-Wjcwckypjg-ryqhpnc completes the activity by him/herself with no assistance from a helper. 5-Set-up or Clean-up Assistance-helper sets up or cleans up; patient completes activity. [place] assists only prior to or following the activity. 4-Supervision or Touching Assistance-helper provides verbal cues and/or touching/steadying and/or contact guard assistance as patient completes activity . Assistance may be provided throughout the activity or intermittently. 3-Partial/Moderate Assistance-helper does LESS THAN HALF the effort. [place] lifts, holds or supports trunk or limbs, but provides less than half the effort. 2-Substantial/Maximal Assistance-helper does MORE THAN HALF the effort. [place] lifts or holds trunk or limbs and provides more than half the effort. 0-Gloilugjm-okinng does ALL the effort. Patient does none of the effort to complete the activity. Or, the assistance of 2 or more helpers is required for the patient to complete the activity. If activity was not attempted, code reason: 7-Patient Refused. 9-Not Applicable-not attempted and the patient did not perform the activity before the current illness, exacerbation or injury. 10-Not Attempted due to Environmental Limitations-(lack of equipment, weather restraints, etc.). 88-Not Attempted due to Medical Conditions or Safety Concerns. Bed Mobility: 6 Transfers (B,C,W/C): 6 Gait: 6 PT Evaluation-Current Subjective Pt. in bed with eyes closed, does agrees to therapy after therapist encouragement but says "I don't want to." Pt/Family Goals home Objective Patient Orientation: Person ROM/Strength ROM Upper Extremities See OT ROM Lower Extremities WFL (B) hip, knee, ankle Strength Upper Extremities See OT Strength Lower Extremities Grossly 3/5 Integumentary/Posture Integumentary see nursing notes, colostomy bag Posture kyphotic Neuromuscular (Tone, Coordination, Reflexes) diminished Sensory Vision: Wears Glasses Hearing: Functional Sensation Right Upper Extremit: Intact Sensation Left Upper Extremity: Intact Sensation Right Lower Extremit: Intact Sensation Left Lower Extremity: Intact Transfers Roll Left to Right (QC): 2 Sit to Lying (QC): 2 Lying to Sitting/Side of Bed(Q: 2 Gait Does the Patient Walk?: No and Walking Goal IS indicated Balance Sitting Static: Fair Treatment additional rolling R/L for gown and bedding change with assist from nurse aide Assessment/Needs Pt. is a 61 y.o. female with decreased mobility and weakness following SBO. Pt. is currently max A/dependent with mobility; she keeps eyes closed during session but provides very little active movement of extremities. Pt. frequently asks for pain meds, nursing aware. Pt. would benefit from skilled PT to improve mobility and strength to return home (I). Rehab Potential: Fair PT Custodial Goals Core Cutter Goals PT Core Cutter Goals Time Frame: Jan 12, 2022 Roll Left & Right (QC): 4 Sit to Lying (QC): 4 Lying-Sitting on Side/Bed(QC): 4 Sit to Stand (QC): 4 Chair/Jsq-vj-Cawwd Xfer(QC): 4 Toilet Transfer (QC): 4 Does the Patient Walk: Yes Walk 10 feet (QC): 4 Walk 50ft with 2 Turns (QC): 4 PT Plan Problem List Problem List: Activity Tolerance, Functional Strength, Safety, Balance, Gait, Transfer, Bed Mobility, ROM Treatment/Plan Treatment Plan: Continue Plan of Care Treatment Plan: Bed Mobility, Concurrent Therapy, Education, Functional Activity April, Functional Strength, Gait, Safety, Therapeutic Exercise, Transfers Treatment Duration: Jan 12, 2022 Frequency: 6 times per week Estimated Hrs Per Day: .25 hour per day Patient and/or Family Agrees t: Yes Time/GCodes Time In: 0950 Time Out: 1010 Total Billed Treatment Time: 20 Total Billed Treatment 1, EVH 10', FA 10' ENRRIQUE DANIELSON PT Jan 01, 2022 10:20
[2022-01-01] MEDS: ENOXAPARIN 40 MG/0.4 ML (LOVENOX) SYR SC SCH (16:15)
[2022-01-02] MEDS: D5 1/2 NS 1000 ML IV SOLUTION 1,000 ML IV SCH ×4 (02:20→23:39)
[2022-01-02 03:45] VITALS: BP 122/82
[2022-01-02] MEDS: PIPERACILLIN SODIUM/TAZOBACTAM 4.5 GM in NS (IVPB) 100 ML IV SCH ×3 (04:52→19:32)
[2022-01-02 05:06] LABS: BASOPHILS % (AUTO) 0 % (0-10); EOSINOPHILS # (AUTO) 0.2 10^3/uL (0.0-0.3); EOSINOPHILS % (AUTO) 2 % (0-10); HEMATOCRIT 29 % (35-52); HEMOGLOBIN 9.7 g/dL (11.5-16.0); LYMPHOCYTES # (AUTO) 2.3 10^3/uL (1.0-4.0); LYMPHOCYTES % (AUTO) 23 % (12-44); MEAN CORPUSCULAR HEMOGLOBIN 34 pg (25-34); MEAN CORPUSCULAR HGB CONC 33 g/dL (32-36); MEAN CORPUSCULAR VOLUME 102 fL (80-99); MEAN PLATELET VOLUME 8.9 fL (9.0-12.2); MONOCYTES # (AUTO) 0.6 10^3/uL (0.0-1.0); MONOCYTES % (AUTO) 6 % (0-12); NEUTROPHILS # (AUTO) 6.7 10^3/uL (1.8-7.8); NEUTROPHILS % (AUTO) 66 % (42-75); PLATELET COUNT 266 10^3/uL (130-400)
[2022-01-02 05:26] LABS: ALBUMIN 2.1 GM/DL (3.2-4.5); POTASSIUM 3.7 MMOL/L (3.6-5.0)
[2022-01-02 05:27] LABS: CALCIUM 7.8 MG/DL (8.5-10.1)
[2022-01-02 05:28] LABS: TOTAL PROTEIN 4.6 GM/DL (6.4-8.2)
[2022-01-02 05:30] LABS: BILIRUBIN,TOTAL 0.3 MG/DL (0.1-1.0)
[2022-01-02 05:32] LABS: CREATININE SERUM 0.57 MG/DL (0.60-1.30)
[2022-01-02 05:35] LABS: MAGNESIUM 1.6 MG/DL (1.6-2.4)
--- NOTE | 2022-01-02 05:42 | Progress Note - Hospitalist ---
Subjective HPI/CC On Admission Date Seen by Provider: Jan 02, 2022 Time Seen by Provider: 08:00 Subjective/Events-last exam Patient doing about the same Severe pain continues Smells of stool Prognosis appears to be very poor senior living Palliative care will be updated tomorrow Labs reviewed Review of Systems General: Fatigue, Malaise Gastrointestinal: Abdominal Pain Focused Exam Lactate Level 12/30/21 20:04: Lactic Acid Level 1.65 Objective Exam Vital Signs Vital Signs Date Time Temp Pulse Resp B/P (MAP) Pulse Ox O2 Delivery O2 Flow Rate FiO2 01/02/22 15:37 37.0 124 18 134/87 (103) 97 Nasal Cannula 2.00 01/02/22 15:33 21 Capillary Refill : Less Than 3 Seconds General Appearance: No Apparent Distress, WD/WN, Chronically ill Respiratory: Lungs Clear, Normal Breath Sounds Neurologic/Psychiatric: Alert, Oriented x3 Results/Procedures Lab Laboratory Tests 01/02/22 04:57 Patient resulted labs reviewed. Assessment/Plan Assessment and Plan Assess & Plan/Chief Complaint Assessment: Acute kidney injury Tachycardia episodes suspicion for sepsis transfer to ICU for 12/31/21 Status post small bowel obstruction required lysis of adhesions and partial omentectomy 12/29/2021 Colostomy status Jejunostomy tube status Tracheostomy status Chronic pain Severe debility Plan: Transfer to fourth floor Maintain antibiotics empirically Supportive care 01/02/22: Monitor closely Prognosis poor Critical Care Critically Ill Patient BISHOP VAN DO Jan 02, 2022 05:42
[2022-01-02] MEDS: KCL 20 MEQ TAB (K-DUR) PO SCH (06:01)
[2022-01-02] MEDS: ONDANSETRON 4 MG/2 ML (SDV) Z0FRAN IVP PRN ×2 (06:35→14:26)
[2022-01-02] MEDS: RT-ALBUTEROL/IPRATROPIUM 3 ML (DUONEB) VIAL INH SCH ×2 (07:46→21:14)
[2022-01-02 07:56] VITALS: BP 146/92
[2022-01-02] MEDS: LORazepam INJ 2 MG/ML (ATIVAN) VIAL IVP PRN (08:29)
[2022-01-02] MEDS ORDERED: PROMETHAZINE INJ 25 MG/ML (PHENERGAN) AMP IVP PRN (10:15)
[2022-01-02 11:31] VITALS: BP 132/84
--- NOTE | 2022-01-02 11:42 | Progress Note - Surgery ---
JOSH MYLES 01/02/22 1142: Subjective Date Seen by a Provider: Jan 02, 2022 Time Seen by a Provider: 10:10 Subjective/Events-last exam Patient very nauseous this morning with increased salivary secretions. States she is spitting up more than she has had to since she got here. Patient's Hgb is stable today at 9.7, up from 9.1 yesterday. Patient's daughter was in the room this morning and states that she is still having increased leakage from the J- tube when they open it. She is wondering if we did her fluids like they do at home if this would help the problem. She states their machine at home cannot push fluids and feeds, so they do 35cc fluid bolus every three hours and with medications. Patient's J-tube was loose again today, so I tightened it back up. Still having gastric secretions. Her ostomy is patent and pink. Contents similar to yesterday, stool contents mixed with trace maroon blood. Review of Systems General: No Chills, No Night Sweats HEENT: No Head Aches, No Visual Changes Pulmonary: Dyspnea; No Cough Cardiovascular: No: Chest Pain, Palpitations Gastrointestinal: Nausea, Abdominal Pain; No: Vomiting Focused Exam Lactate Level 12/30/21 20:04: Lactic Acid Level 1.65 Objective Exam Vital Signs Date Time Temp Pulse Resp B/P (MAP) Pulse Ox O2 Delivery O2 Flow Rate FiO2 01/02/22 08:00 98 Nasal Cannula 1.00 01/02/22 07:56 36.7 127 20 146/92 (110) 92 Room Air 01/02/22 07:46 92 Room Air 0.00 01/02/22 03:45 36.3 113 18 122/82 (95) 95 Room Air 01/01/22 23:58 36.1 110 18 118/81 (93) 97 Room Air 01/01/22 20:00 98 Room Air 01/01/22 19:45 36.4 124 18 109/74 (86) 98 Room Air 01/01/22 18:35 96 Room Air 01/01/22 16:26 37.1 112 18 123/83 (96) 97 Room Air 01/01/22 14:40 36.9 113 14 117/76 (90) 94 Room Air 01/01/22 12:00 121 8 118/76 (90) 97 Nasal Cannula 1.00 01/01/22 12:00 98 Room Air 01/01/22 11:46 36.4 I & O 01/02/22 07:00 Intake Total 310 ml Output Total 3375 ml Balance -3065 ml Capillary Refill : Less Than 3 Seconds General Appearance: WD/WN, Chronically ill Neck: Supple Respiratory: Lungs Clear, Normal Breath Sounds (anterior posts only), No Accessory Muscle Use, No Respiratory Distress Cardiovascular: Regular Rate, Rhythm, Normal Peripheral Pulses Peripheral Pulses: 2+ Radial Pulses (R), 2+ Radial Pulses (L) Gastrointestinal: soft; No distended; tenderness (mild tenderness near surgical sites), other (Ostomy pink and patent; stool in bag with trace maroon blood. Still having some leakage at base of J-tube) Extremity: Normal Capillary Refill, Pedal Edema (1+ bilat), Other (SCD's in place; slight swelling in her hands bilaterally) Neurologic/Psychiatric: Alert, Oriented x3, Depressed Affect Skin: Pallor Results Lab Laboratory Tests 01/02/22 04:57: White Blood Count 10.0, Red Blood Count 2.88L, Hemoglobin 9.7L, Hematocrit 29L, Mean Corpuscular Volume 102H, Mean Corpuscular Hemoglobin 34, Mean Corpuscular Hemoglobin Concent 33, Red Cell Distribution Width 11.5, Platelet Count 266, Mean Platelet Volume 8.9L, Immature Granulocyte % (Auto) 3, Neutrophils (%) (Auto) 66, Lymphocytes (%) (Auto) 23, Monocytes (%) (Auto) 6, Eosinophils (%) ( Auto) 2, Basophils (%) (Auto) 0, Neutrophils # (Auto) 6.7, Lymphocytes # (Auto) 2.3, Monocytes # (Auto) 0.6, Eosinophils # (Auto) 0.2, Basophils # (Auto) 0.0, Immature Granulocyte # (Auto) 0.3H, Sodium Level 135, Potassium Level 3.7, C hloride Level 105, Carbon Dioxide Level 20L, Anion Gap 10, Blood Urea Nitrogen 4L, Creatinine 0.57L, Estimat Glomerular Filtration Rate 105, BUN/Creatinine Ratio 7, Glucose Level 126H, Calcium Level 7.8L, Corrected Calcium 9.3, Magnesium Level 1.6, Total Bilirubin 0.3, Aspartate Amino Transf (AST/SGOT) 14, Alanine Aminotransferase (ALT/SGPT) 37, Alkaline Phosphatase 82, Total Protein 4.6L, Albumin 2.1L Microbiology 12/31/21 MRSA Screen - Final, Complete MRSA not isolated 12/30/21 Blood Culture - Preliminary, Resulted No growth Assessment/Plan Assessment/Plan Assessment/Plan Partial Small Bowel Obstruction \\ Large bowel obstruction - S/P day 4 ex lap w/ end colostomy for potential diverticular stricture/mass, awaiting pathology Sepsis - leukocytosis resolved, patient no longer meets criteria - Started patient on pip/tazo, white count down to 10.0 this morning heart rate still up, consider rate control with medication Anemia - Hgb 9.7 this morning, up from 9.1 yesterday Hypokalemia - okay at 3.7 this morning Extensive history of abdominal surgery with Jejunostomy tube placement and spit fistula for upper esophagus Hypertension Tachycardia Elevated LFT's, continue to monitor Chronic low back pain Asthma Plan Pip/Tazo Continue IVF Continue Zofran for nausea control - added reglan Q4 for breakthrough nausea Pain management - Currently Fentanyl and Oxycodone KCl replacement Breathing treatments PRN Patient status post day 4 ex lap with end colostomy. Patient states her abdomen does feel less distended and painful than before the surgery, but that she is having pain at her incision sites. Encourage pt to ambulate, use IS, and sit up in her chair, as she is currently not. Will continue to monitor her WBC's and tachycardia. WBC counts are currently trending down. If her tachycardia does not start to show signs of improvement could consider rate control low does B- brennon or non-dihydropyridine CCB as her BP tolerates. Patient's urine output is good, can remove her catheter. I again pulled the J-tube a little tighter and told nurse to resume trickle tube feeds, but they had to be D/C'd this morning due to nausea. Daughter says that at home they do not give IV fluids and use fluid boluses of 35CC Q3hr and with her medications. States they do not have as much of an issue with backloading of J-tube/nausea with feeding. Also states they only feed at night at 62 ml/hr. Could consider trying this along with trickling feeds to attempt to give patient some nourishment without increasing her nausea. CHRISTO BRAGG DO 01/02/22 1445: Subjective Time Seen by a Provider: 13:33 Subjective/Events-last exam Pt seen and examined. Nursing states she has been having nausea and spitting up, still getting stuff coming out around J-tube. Pt states she feels worse than yesterday because of pain all over, but when I asked her it was mostly back pain she was complaining of; which is chronic. Review of Systems General: Fatigue, Malaise HEENT: No Head Aches, No Visual Changes Pulmonary: Dyspnea; No Cough Cardiovascular: No: Chest Pain, Palpitations Gastrointestinal: Nausea, Vomiting ("spitting up mucous"), Abdominal Pain Objective Exam General Appearance: Chronically ill (pt looks pale again and not as healthy appearing as yesterday), Other (She states she has not move out of bed for 2-3 days) HEENT: PERRL/EOMI Respiratory: Lungs Clear, Normal Breath Sounds (anterior posts only), No Accessory Muscle Use, No Respiratory Distress Cardiovascular: Regular Rate, Rhythm, No Murmur Gastrointestinal: soft; No distended; tenderness (mild tenderness near surgical sites), other (Ostomy pink and patent; stool in bag with trace maroon blood. Still having some leakage at base of J-tube) Extremity: Pedal Edema (1+ bilat), Other (SCD's in place; slight swelling in her hands bilaterally) Neurologic/Psychiatric: Depressed Affect Skin: Pallor Assessment/Plan Assessment/Plan Assessment/Plan Partial Small Bowel Obstruction \\ Large bowel obstruction - S/P day 4 ex lap w/ end colostomy for potential diverticular stricture/mass, awaiting pathology Sepsis - leukocytosis resolved, patient no longer meets criteria - Started patient on pip/tazo, white count down to 10.0 this morning heart rate still up, consider rate control with medication Anemia - Hgb 9.7 this morning, up from 9.1 yesterday Hypokalemia - okay at 3.7 this morning Extensive history of abdominal surgery with Jejunostomy tube placement and spit fistula for upper esophagus Hypertension Tachycardia Elevated LFT's, continue to monitor Chronic low back pain Asthma Plan Pip/Tazo Continue IVF Continue Zofran for nausea control - added reglan Q4 for breakthrough nausea Pain management - Currently Fentanyl and Oxycodone KCl replacement Breathing treatments PRN Patient status post day 4 ex lap with end colostomy. Patient states her abdomen does feel less distended and painful than before the surgery, but that she is having pain at her incision sites. Encourage pt to ambulate, use IS, and sit up in her chair, as she is currently not. Will continue to monitor her WBC's and tachycardia. WBC counts are currently trending down. If her tachycardia does not start to show signs of improvement could consider rate control low does B- brennon or non-dihydropyridine CCB as her BP tolerates. Patient's urine output is good, can remove her catheter. I again pulled the J-tube a little tighter and told nurse to resume trickle tube feeds, but they had to be D/C'd this morning due to nausea. Daughter says that at home they do not give IV fluids and use fluid boluses of 35CC Q3hr and with her medications. States they do not have as much of an issue with backloading of J-tube/nausea with feeding. Also states they only feed at night at 62 ml/hr. Could consider trying this along with trickling feeds to attempt to give patient some nourishment without increasing her nausea. I told pt she has to move, get out of bed, walk and use IS or else she will never get better. Supervisory-Addendum Brief Verification & Attestation Participated in pt care: history, MDM, physical Personally performed: exam, history, MDM, supervision of care Care discussed with: Medical Student Procedures: n/a Verification and Attestation of Medical Student E/M Service A medical student performed and documented this service. I then reviewed and verified all information documented by the medical student and made modifications to such information, when appropriate. I personally performed a physical exam, medical decision making and then discussed any differences between the notes and made revisions as necessary to create one note. Christo Bragg , 01/02/22 , 14:45 JOSH MYLES Jan 02, 2022 11:42 CHRISTO BRAGG DO Jan 02, 2022 14:45
[2022-01-02 15:33] VITALS: BP 132/84
[2022-01-02 15:37] VITALS: BP 134/87
[2022-01-02] MEDS: ENOXAPARIN 40 MG/0.4 ML (LOVENOX) SYR SC SCH (16:57)
[2022-01-02 20:05] VITALS: BP 128/84
[2022-01-03] VITALS (7 sets, daily range): BP systolic 109–135; BP diastolic 68–84
[2022-01-03] MEDS: PIPERACILLIN SODIUM/TAZOBACTAM 4.5 GM in NS (IVPB) 100 ML IV SCH ×3 (03:23→19:33)
[2022-01-03 04:43] LABS: BASOPHILS % (AUTO) 0 % (0-10); EOSINOPHILS # (AUTO) 0.2 10^3/uL (0.0-0.3); EOSINOPHILS % (AUTO) 2 % (0-10); HEMATOCRIT 27 % (35-52); HEMOGLOBIN 8.9 g/dL (11.5-16.0); LYMPHOCYTES % (AUTO) 23 % (12-44); MEAN CORPUSCULAR HEMOGLOBIN 34 pg (25-34); MEAN CORPUSCULAR HGB CONC 33 g/dL (32-36); MEAN CORPUSCULAR VOLUME 102 fL (80-99); MEAN PLATELET VOLUME 9.2 fL (9.0-12.2); MONOCYTES # (AUTO) 0.6 10^3/uL (0.0-1.0); MONOCYTES % (AUTO) 7 % (0-12); NEUTROPHILS % (AUTO) 66 % (42-75); PLATELET COUNT 240 10^3/uL (130-400)
[2022-01-03 04:57] LABS: ALBUMIN 2.1 GM/DL (3.2-4.5)
[2022-01-03 04:58] LABS: POTASSIUM 3.2 MMOL/L (3.6-5.0)
[2022-01-03 04:59] LABS: CALCIUM 7.7 MG/DL (8.5-10.1)
[2022-01-03 05:00] LABS: TOTAL PROTEIN 4.4 GM/DL (6.4-8.2)
[2022-01-03 05:02] LABS: BILIRUBIN,TOTAL 0.3 MG/DL (0.1-1.0)
[2022-01-03 05:03] LABS: CREATININE SERUM 0.56 MG/DL (0.60-1.30)
[2022-01-03 05:06] LABS: MAGNESIUM 1.5 MG/DL (1.6-2.4)
[2022-01-03] MEDS: KCL 20 MEQ TAB (K-DUR) PO SCH (06:21)
[2022-01-03] MEDS: D5 1/2 NS 1000 ML IV SOLUTION 1,000 ML IV SCH ×2 (06:38→16:47)
[2022-01-03] MEDS ORDERED: KCL 20 MEQ TAB (K-DUR) PO ONE ×2 (07:00→09:00)
[2022-01-03] MEDS: RT-ALBUTEROL/IPRATROPIUM 3 ML (DUONEB) VIAL INH SCH ×4 (07:07→18:17)
--- NOTE | 2022-01-03 07:40 | Progress Note - Surgery ---
JOSH MYLES 01/03/22 0740: Subjective Date Seen by a Provider: Jan 03, 2022 Time Seen by a Provider: 07:15 Subjective/Events-last exam Patient was lying in bed today. She states that her pain is a 10/10 today, but that it is her back pain, which is chronic for her. Patient states that her [place]io sea has been better and she has been tolerating her feedings more. Patient states that she has not got up or attempted to move at all. Patient does state that her abdomen feels more tender today, at midline. Her ostomy appears patent and pink, with brown appearing stool in her ostomy. I do not notice any blood in her colostomy bag this morning, but patients Hgb is at 8.9. down from 9.7 yesterday. Review of Systems General: No Chills, No Night Sweats HEENT: No Head Aches, No Visual Changes Pulmonary: No Dyspnea, No Cough Cardiovascular: No: Chest Pain, Palpitations Gastrointestinal: Abdominal Pain (midline); No: Nausea Genitourinary: No Dysuria, No Frequency Musculoskeletal: back pain Objective Exam Vital Signs Date Time Temp Pulse Resp B/P (MAP) Pulse Ox O2 Delivery O2 Flow Rate FiO2 01/03/22 07:09 99 Nasal Cannula 1.00 01/03/22 04:00 36.2 96 17 126/77 (93) 98 Nasal Cannula 2.00 01/03/22 00:00 36.4 108 19 132/79 (96) 98 Nasal Cannula 2.00 01/02/22 21:14 96 Nasal Cannula 1.00 01/02/22 20:05 36.9 113 17 128/84 (99) 98 Nasal Cannula 2.00 01/02/22 19:34 Nasal Cannula 1.00 01/02/22 15:37 37.0 124 18 134/87 (103) 97 Nasal Cannula 2.00 01/02/22 15:33 36.5 111 98 21 01/02/22 11:31 36.5 111 20 132/84 (100) 98 Nasal Cannula 1.00 01/02/22 08:15 Nasal Cannula 1.00 01/02/22 08:00 98 Nasal Cannula 1.00 01/02/22 07:56 36.7 127 20 146/92 (110) 92 Room Air 01/02/22 07:46 92 Room Air 0.00 I & O 01/03/22 07:00 Intake Total 2370 ml Output Total 3030 ml Balance -660 ml Capillary Refill : Less Than 3 Seconds General Appearance: No Apparent Distress, Chronically ill Neck: Supple Respiratory: Lungs Clear, Normal Breath Sounds (anterior posts only ) Cardiovascular: Regular Rate, Rhythm, No Murmur Peripheral Pulses: 2+ Radial Pulses (R), 2+ Radial Pulses (L) Gastrointestinal: distended (Patients abdomen feels more distended to me t ne), tenderness (mild tenderness near surgical sites), other (Ostomy pink and patent; stool in bag, I did not notice blood this AM. Still having some leakage at base of J-tube, but the paste appears to be holding the J tube in place much better) Extremity: Normal Capillary Refill (hands bilaterally), Pedal Edema (1+ bilat), Other (SCD's in place; slight swelling in her hands bilaterally) Neurologic/Psychiatric: Alert, Oriented x3, Depressed Affect Skin: Pallor Results Lab Laboratory Tests 01/03/22 04:30: White Blood Count 9.0, Red Blood Count 2.63L, Hemoglobin 8.9L, Hematocrit 27L, Mean Corpuscular Volume 102H, Mean Corpuscular Hemoglobin 34, Mean Corpuscular Hemoglobin Concent 33, Red Cell Distribution Width 11.6, Platelet Count 240, Mean Platelet Volume 9.2, Immature Granulocyte % (Auto) 2, Neutrophils (%) (Auto) 66, Lymphocytes (%) (Auto) 23, Monocytes (%) (Auto) 7, Eosinophils (%) (Auto) 2, Basophils (%) (Auto) 0, Neutrophils # (Auto) 6.0, Lymphocytes # (Auto) 2.0, Monocytes # (Auto) 0.6, Eosinophils # (Auto) 0.2, Basophils # (Auto) 0.0, Immature Granulocyte # (Auto) 0.2H, Sodium Level 137, Potassium Level 3.2L, Chloride Level 106, Carbon Dioxide Level 21, Anion Gap 10, Blood Urea Nitrogen 3L, Creatinine 0.56L, Estimat Glomerular Filtration Rate 105, BUN/Creatinine Ratio 5, Glucose Level 116H, Calcium Level 7.7L, Corrected Calcium 9.2, Magnesium Level 1.5L, Total Bilirubin 0.3, Aspartate Amino Transf (AST/SGOT) 12, Alanine Aminotransferase (ALT/SGPT) 27, Alkaline Phosphatase 78, Total Protein 4.4L, Albumin 2.1L Microbiology 12/31/21 MRSA Screen - Final, Complete MRSA not isolated 12/30/21 Blood Culture - Preliminary, Resulted No growth Assessment/Plan Assessment/Plan Assessment/Plan Partial Small Bowel Obstruction \ Large bowel obstruction - S/P day 5 ex lap w/ end colostomy for potential diverticular stricture/mass, awaiting pathology Sepsis - leukocytosis resolved, patient no longer meets criteria - Started patient on pip/tazo, white count down to 9.0 this morning. Anemia - Hgb 8.9 this morning, down from 9.7 yesterday Hypokalemia - 3.2 this morning, continue replacement Extensive history of abdominal surgery with Jejunostomy tube placement and spit fistula for upper esophagus Hypertension Tachycardia - intermittent, not currently Elevated LFT's, continue to monitor Chronic low back pain Asthma Plan Pip/Tazo Continue IVF Continue Zofran for nausea control - added reglan Q4 for breakthrough nausea Pain management - Currently Fentanyl and Oxycodone KCl replacement Breathing treatments PRN Patient status post day 5 ex lap with end colostomy. Patient states her abdomen does feel less distended and painful than before the surgery, but that she is having pain at her incision sites. However, on examination her abdomen feels slightly more distended today. Encourage pt to ambulate, use IS, and sit up in her chair, as she is currently not. Will continue to monitor her WBC's and tachycardia, both appear improved today. If her tachycardia does not start to show signs of improvement could consider rate control low does B-brennon or non- dihydropyridine CCB as her BP tolerates. Patient's urine output is good, can remove her catheter. Patient states that today she seems to be tolerating her feeds more than she has in the past, continue to monitor. TODD BRAGG DO 01/03/22 1411: Subjective Time Seen by a Provider: 12:29 Subjective/Events-last exam Pt seen and examined, looks better today and more alert. States she is feeling a little better. Daughter states the tube feeds seem to be going down. Review of Systems General: No Chills, No Night Sweats; Fatigue, Malaise Pulmonary: No Dyspnea, No Cough Cardiovascular: No: Chest Pain, Palpitations Gastrointestinal: Abdominal Pain (midline); No: Nausea Genitourinary: No Dysuria, No Frequency Musculoskeletal: back pain Objective Exam General Appearance: No Apparent Distress, Chronically ill Respiratory: Lungs Clear, Normal Breath Sounds (anterior posts only ), No Accessory Muscle Use, No Respiratory Distress Cardiovascular: Regular Rate, Rhythm, No Murmur Gastrointestinal: distended (Patients abdomen feels more distended to me today), tenderness (mild tenderness near surgical sites), other (Ostomy pink and patent; stool in bag, I did not notice blood this AM. Still having some leakage at base of J-tube, but the paste appears to be holding the J tube in place much better) Extremity: Pedal Edema (1+ bilat), Other (SCD's in place; slight swelling in her hands bilaterally) Neurologic/Psychiatric: Depressed Affect Skin: Pallor Assessment/Plan Assessment/Plan Assessment/Plan Partial Small Bowel Obstruction \ Large bowel obstruction - S/P day 5 ex lap w/ end colostomy for potential diverticular stricture/mass, awaiting pathology Sepsis - leukocytosis resolved, patient no longer meets criteria - Started patient on pip/tazo, white count down to 9.0 this morning. Anemia - Hgb 8.9 this morning, down from 9.7 yesterday Hypokalemia - 3.2 this morning, continue replacement Extensive history of abdominal surgery with Jejunostomy tube placement and spit fistula for upper esophagus Hypertension Tachycardia - intermittent, not currently Elevated LFT's, continue to monitor Chronic low back pain Asthma Plan Pip/Tazo Continue IVF Continue Zofran for nausea control - added reglan Q4 for breakthrough nausea Pain management - Currently Fentanyl and Oxycodone KCl replacement Breathing treatments PRN Patient status post day 5 ex lap with end colostomy. Patient states her abdomen does feel less distended and painful than before the surgery, but that she is having pain at her incision sites. However, on examination her abdomen feels slightly more distended today. Encourage pt to ambulate, use IS, and sit up in her chair, as she is currently not; also told her she must allow/work with PT. Will continue to monitor her WBC's and tachycardia, both appear improved today. Patient states that today she seems to be tolerating her feeds more than she has in the past, continue to monitor. Supervisory-Addendum Brief Verification & Attestation Participated in pt care: history, MDM, physical Personally performed: exam, history, MDM, supervision of care Care discussed with: Medical Student Procedures: n/a Verification and Attestation of Medical Student E/M Service A medical student performed and documented this service. I then reviewed and verified all information documented by the medical student and made modifications to such information, when appropriate. I personally performed a physical exam, medical decision making and then discussed any differences between the notes and made revisions as necessary to create one note. Todd Bragg , 01/03/22 , 14:11 JOSH MYLES Jan 03, 2022 07:40 TODD BRAGG DO Jan 03, 2022 14:11
[2022-01-03] MEDS: fentaNYL PATCH 50 MCG (DURAGESIC) TD SCH (07:46)
[2022-01-03] MEDS ORDERED: POTASSIUM BICARB 20 MEQ (EFFER-K) TABLET PO ONE (08:00)
--- NOTE | 2022-01-03 09:58 | Physical Therapy Daily Note ---
PT Daily Note-Current Subjective Patient agrees to PT. Mental Status Patient Orientation: Normal For Age Attachments: Colostomy/Ileostomy, Oxygen, PEG Tube, Benjamin Catheter, IV Transfers SCALE: Activities may be completed with or without assistive devices. 7-Gdboyrkrak-hitzbfb completes the activity by him/herself with no assistance from a helper. 5-Set-up or Clean-up Assistance-helper sets up or cleans up; patient completes activity. [place] assists only prior to or following the activity. 4-Supervision or Touching Assistance-helper provides verbal cues and/or touching/steadying and/or contact guard assistance as patient completes a ctivity. Assistance may be provided throughout the activity or intermittently. 3-Partial/Moderate Assistance-helper does LESS THAN HALF the effort. [place] lifts, holds or supports trunk or limbs, but provides less than half the effort. 2-Substantial/Maximal Assistance-helper does MORE THAN HALF the effort. [place] lifts or holds trunk or limbs and provides more than half the effort. 2-Yzzxltbxz-xzrqkx does ALL the effort. Patient does none of the effort to complete the activity. Or, the assistance of 2 or more helpers is required for the patient to complete the activity. If activity was not attempted, code reason: 7-Patient Refused. 9-Not Applicable-not attempted and the patient did not perform the activity before the current illness, exacerbation or injury. 10-Not Attempted due to Environmental Limitations-(lack of equipment, weather restraints, etc.). 88-Not Attempted due to Medical Conditions or Safety Concerns. Sit to Lying (QC): 2 Lying to Sitting/Side of Bed(Q: 2 Sit to Stand (QC): 3 patient able to perform sit to stand to FWW SBA x 2 sets. PT assist with side stepping toward HOB to reposition. Patient sat EOB x 8 min Weight Bearing Right Lower Extremity: Right Full Weight Bearing Left Lower Extremity: Left Full Weight Bearing Gait Training Distance: 5 side steps PT assist Exercises Supine Ex: Ankle pumps, Quad Set, Heel Slides Supine Reps: 8 Assessment Patient improving with display on increase strength and mobility. Patient requires time to complete all functional tasks and returned to bed with needs met. Increase activity as tolerated by patient. PT Builder'S Labourer Goals Builder'S Labourer Goals PT [facility] Goals Time Frame: Jan 12, 2022 Roll Left & Right (QC): 4 Sit to Lying (QC): 4 Lying-Sitting on Side/Bed(QC): 4 Sit to Stand (QC): 4 Chair/Lwl-zz-Egidy Xfer(QC): 4 Toilet Transfer (QC): 4 Does the Patient Walk: Yes Walk 10 feet (QC): 4 Walk 50ft with 2 Turns (QC): 4 PT Plan Treatment/Plan Treatment Plan: Continue Plan of Care Treatment Plan: Bed Mobility, Concurrent Therapy, Education, Functional Activity April, Functional Strength, Gait, Safety, Therapeutic Exercise, Transfers Treatment Duration: Jan 12, 2022 Frequency: 6 times per week Estimated Hrs Per Day: .25 hour per day Patient and/or Family Agrees t: Yes Time/GCodes Time In: 850 Time Out: 908 Total Billed Treatment Time: 18 Total Billed Treatment 1 visit FA 18 min CONNOR HARPER PT Jan 03, 2022 09:58
--- NOTE | 2022-01-03 11:12 | Occupational Therapy Eval ---
OT Evaluation-General/PLF Medical Diagnosis Admission Date Dec 27, 2021 at 14:50 Medical Diagnosis: SBO Onset Date: Dec 27, 2021 Therapy Diagnosis Therapy Diagnosis: reduced adl status Height/Weight Height (Feet): 4 Height (Inches): 11.00 Weight (Pounds): 98 Weight (Ounces): 14.4 Precautions Precautions/Isolations: Fall Prevention, Standard Precautions Referral Physician: Dr. Woodard Referral Reason: Evaluation/Treatment Medical History Pertinent Medical History: GERD, HTN Additional Medical History hiatal hernia surgery complications Current History Pt arrives to ER with SBO. Per patient, she lives in a single story home with he r daughter. She was using a walker at baseline and was indep with adls. She does not get into the bath anymore and instead takes sponge bathes seated at the sink. Daughter performs IADLs. Reviewed History: Yes Social History Home: Single Level Current Living Status: Children Entry Into Home: Stairs With Railing Steps Into Home: 5 ADL-Prior Level of Function SCALE: Activities may be completed with or without assistive devices. 1-Mxamcnwcwy-izpaiky completes the activity by him/herself with no assistance from a helper. 5-Set-up or Clean-up Assistance-helper sets up or cleans up; patient completes activity. [place] assists only prior to or following the activity. 4-Supervision or Touching Assistance-helper provides verbal cues and/or touching/steadying and/or contact guard assistance as patient completes activity. Assistance may be provided throughout the activity or intermittently. 3-Partial/Moderate Assistance-helper does LESS THAN HALF the effort. [place] lifts, holds or supports trunk or limbs, but provides less than half the effort. 2-Substantial/Maximal Assistance-helper does MORE THAN HALF the effort. [place] lifts or holds trunk or limbs and provides more than half the effort. 4-Bhoauhpsc-meigjv does ALL the effort. Patient does none of the effort to complete the activity. Or, the assistance of 2 or more helpers is required for the patient to complete the activity. If activity was not attempted, code reason: 7-Patient Refused. 9-Not Applicable-not attempted and the patient did not perform the activity before the current illness, exacerbation or injury. 10-Not Attempted due to Environmental Limitations-(lack of equipment, weather restraints, etc.). 88-Not Attempted due to Medical Conditions or Safety Concerns. Self Care: Independent Functional Cognition: Needed Some Help OT Current Status Subjective Pt reports 10/10 pain at rest in abdomen and back. Per patient, pain meds given ~2 hours prior. Appearance Pt left supine in bed, all needs within reach. Mental Status/Objective Attachments: Colostomy/Ileostomy, Benjamin Catheter, IV, Oxygen, PEG Tube, Telemetry Current Glasses/Contacts: Yes Hearing Aids: No Hand Dominance: Right Upper Extremity ROM ~3/4 AROM bilateral shoulders Upper Extremity Strength no tested secondary to pain. Pt appears very debilitated, possibly 2+/5 throughout ADL-Treatment Eating (QC): 1 (Peg tube that elvia manages) Oral Hygiene (QC): 4 On/Off Footwear (QC): 1 Toileting Hygiene (QC): 1 (colostomy) Pt supine in bed, reports 10/10 pain at rest. Grooming tasks performed at bed level with supervision/set up. Pt moving extra slowly with all tasks. Declines OOB activities or any further adls secondary to pain. Requires mod a to roll R/L, fatigues quickly with limited tasks. Education OT Patient Education: Correct positioning, Modified ADL techniques, Progress toward Goal/Update tx plan, Purpose of tx/functional activities, Rehab process, Safety issues, Transfer techniques Teaching Recipient: Patient Teaching Methods: Demonstration, Discussion Response to Teaching: Verbalize Understanding, Reinforcement Needed OT Traffic Worker Goals Traffic Worker Goals Time Frame: Jan 15, 2022 Oral Hygiene (QC): 5 Shower/Bathe Self (QC): 4 Upper Body Dressing (QC): 4 Lower Body Dressing (QC): 4 On/Off Footwear (QC): 3 1=Demonstrate adherence to instructed precautions during ADL tasks. 2=Patient will verbalize/demonstrate understanding of assistive devices/modifications for ADL. 3=Patient will improve strength/tolerance for activity to enable patient to perform ADL's. OT Education/Plan Problem List/Assessment Assessment: Decreased Activ Tolerance, Decreased UE Strength, Impaired Bed Mobility, Impaired Cognition, Impaired Funct Balance, Impaired Self-Care Skills, Restricted Funct UE ROM Discharge Recommendations Plan/Recommendations: Continue POC Therapy Discharge Recommendati: Post Acute OT Treatment Plan/Plan of Care Treatment,Training & Education: Yes Patient would benefit from OT for education, treatment and training to promote independence in ADL's, mobility, safety and/or upper extremity function for ADL's. Plan of Care: ADL Retraining, Caregiver Training, Functional Mobility, Group Exercise/Act as Ind, UE Funct Exercise/Act Treatment Duration: Jan 15, 2022 Frequency: 3 times per week (3-5x/week) Estimated Hrs Per Day: .25 hour per day Agreement: Yes Rehab Potential: Fair Time/GCodes Start Time: 10:36 Stop Time: 10:46 Total Time Billed (hr/min): 10 Billed Treatment Time 1 visit Nancy Elizabeth OT Jan 03, 2022 11:12
--- NOTE | 2022-01-03 11:20 | Progress Note - Hospitalist ---
ESTELA CLIFTON 01/03/22 1120: Subjective HPI/CC On Admission Date Seen by Provider: Jan 03, 2022 Time Seen by Provider: 08:45 Subjective/Events-last exam The patient was laying in bed this morning and was not in acute distress. She did report her pain as 10/10, however seems to be overstated and does not match her clinical presentation. She reports that her pain is in her abdomen around her surgical site, and also in her back. She had no other complaints. Review of Systems General: No Chills; Other (no fevers) HEENT: No Head Aches, No Visual Changes Pulmonary: No Dyspnea, No Cough Cardiovascular: No: Chest Pain, Palpitations Gastrointestinal: No: Nausea, Vomiting Genitourinary: No Dysuria, No Hematuria Musculoskeletal: back pain Neurological: No: Change in speech, Confusion Objective Exam Vital Signs Vital Signs Date Time Temp Pulse Resp B/P (MAP) Pulse Ox O2 Delivery O2 Flow Rate FiO2 01/03/22 15:52 35.6 109 16 128/84 (99) 97 Nasal Cannula 1.00 01/02/22 15:33 21 Capillary Refill : Less Than 3 Seconds General Appearance: No Apparent Distress, Chronically ill, Obese HEENT: PERRL/EOMI, Pharynx Normal, Moist Mucous Membranes Neck: Full Range of Motion, Normal Inspection, Non Tender, Supple Respiratory: Chest Non Tender, Lungs Clear, Normal Breath Sounds, No Accessory Muscle Use, No Respiratory Distress Cardiovascular: No Edema, No Gallop, No JVD, No Murmur, Normal Peripheral Pulses, Tachycardia Gastrointestinal: Normal Bowel Sounds, Other (colostomy bag in place, brown stool with no blood in the bag) Extremity: Normal Inspection, Normal Range of Motion, Non Tender, No Calf Tenderness, No Pedal Edema Neurologic/Psychiatric: Alert, Oriented x3, No Motor/Sensory Deficits, Normal Mood/Affect Skin: Normal Color, Warm/Dry Lymphatic: No Adenopathy Results/Procedures Lab Laboratory Tests 01/03/22 04:30 Patient resulted labs reviewed. Assessment/Plan Assessment and Plan Assess & Plan/Chief Complaint Assessment: KIARA SBO status post ex-lap requiring lysis of adehsions and partial omentectomy Elevated liver enzymes Colostomy status Jejunostomy tube status Tracheostomy status Anemia Hypokalemia Hypertension Tachycardia (intermittent) severe debility chronic pain DVT prophylaxis Plan KIARA SBO status post ex-lap requiring lysis of adhesions and partial omentectomy Elevated liver enzymes Colostomy status Jejunostomy tube status Tracheostomy status Anemia Hypokalemia Hypertension Tachycardia (intermittent) suspicion for sepsis transfer to ICU for 12/31/21 severe debility chronic pain PT will continue on Zosyn. IV fluids will be decreased. We will not increase her current narcotic pain medication due to her SBO history. Continue to monitor Hbg, and colostomy bag for blood. Monitor heart rate. Continue oral potassium therapy. PT will likely need hospice care. DVT prophylaxis Lovenox injections KRUPA VAN DO 01/04/22 0541: Subjective Subjective/Events-last exam Pt is doing about the same Reports her pain is 10/10 but not lining up with clinical scenario I will consult palliative care to see what the next step in her care will be Review of Systems Gastrointestinal: Abdominal Pain Objective Exam General Appearance: No Apparent Distress, WD/WN, Chronically ill Respiratory: Lungs Clear, Normal Breath Sounds Cardiovascular: Regular Rate, Rhythm Neurologic/Psychiatric: Alert, Oriented x3, Depressed Affect Assessment/Plan Assessment and Plan Assess & Plan/Chief Complaint Supportive care Palliative care consult Supervisory-Addendum Brief Verification & Attestation Participated in pt care: history, MDM, physical Personally performed: exam, history, MDM, supervision of care Care discussed with: Medical Student Procedures: n/a Results interpretation: Verified all documentation Verification and Attestation of Medical Student E/M Service A medical student performed and documented this service in my presence. I reviewed and verified all information documented by the medical student and made modifications to such information, when appropriate. I personally performed the physical exam and medical decision making. Krupa Van, Jan 04, 2022,05:40 ESTELA CLIFTON Jan 03, 2022 11:20 KRUPA VAN DO Jan 04, 2022 05:41
[2022-01-03] MEDS: ENOXAPARIN 40 MG/0.4 ML (LOVENOX) SYR SC SCH (16:48)
[2022-01-04] MEDS: D5 1/2 NS 1000 ML IV SOLUTION 1,000 ML IV SCH ×2 (00:28→11:28)
[2022-01-04] MEDS: PIPERACILLIN SODIUM/TAZOBACTAM 4.5 GM in NS (IVPB) 100 ML IV SCH ×2 (04:51→11:28)
[2022-01-04 04:59] LABS: BASOPHILS % (AUTO) 0 % (0-10); EOSINOPHILS # (AUTO) 0.3 10^3/uL (0.0-0.3); EOSINOPHILS % (AUTO) 3 % (0-10); HEMATOCRIT 27 % (35-52); HEMOGLOBIN 8.9 g/dL (11.5-16.0); LYMPHOCYTES # (AUTO) 2.2 10^3/uL (1.0-4.0); LYMPHOCYTES % (AUTO) 22 % (12-44); MEAN CORPUSCULAR HEMOGLOBIN 34 pg (25-34); MEAN CORPUSCULAR HGB CONC 33 g/dL (32-36); MEAN CORPUSCULAR VOLUME 103 fL (80-99); MEAN PLATELET VOLUME 8.7 fL (9.0-12.2); MONOCYTES # (AUTO) 0.6 10^3/uL (0.0-1.0); MONOCYTES % (AUTO) 6 % (0-12); NEUTROPHILS # (AUTO) 6.5 10^3/uL (1.8-7.8); NEUTROPHILS % (AUTO) 65 % (42-75); PLATELET COUNT 315 10^3/uL (130-400); WHITE BLOOD COUNT 9.9 10^3/uL (4.3-11.0)
[2022-01-04 05:08] LABS: ALBUMIN 2.3 GM/DL (3.2-4.5)
[2022-01-04 05:10] LABS: CALCIUM 8.1 MG/DL (8.5-10.1)
[2022-01-04] MEDS: KCL 20 MEQ TAB (K-DUR) PO SCH (05:10)
[2022-01-04 05:11] LABS: TOTAL PROTEIN 4.9 GM/DL (6.4-8.2)
[2022-01-04 05:13] LABS: BILIRUBIN,TOTAL 0.3 MG/DL (0.1-1.0)
[2022-01-04 05:14] LABS: CREATININE SERUM 0.57 MG/DL (0.60-1.30)
[2022-01-04 05:17] LABS: MAGNESIUM 1.6 MG/DL (1.6-2.4)
[2022-01-04 07:30] VITALS: BP 122/81
--- NOTE | 2022-01-04 07:36 | Progress Note - Surgery ---
JOSH MYLES 01/04/22 0736: Subjective Date Seen by a Provider: Jan 04, 2022 Time Seen by a Provider: 07:10 Subjective/Events-last exam Patient looks much better this morning. She is beginning to have some color back in her skin. Feedings are titrated at 35 ml per hour, which is the rate that nutrition wants her to be at. She states she worked with PT yesterday. I asked patient if she thought she would be able to get up and go to the bathroom if we removed her quiroga, she said she wasn't sure yet. Patients abdomen feels the same as yesterday, not becoming more distended. Patients stoma is patent and pink, ostomy bag contains stool. I do not see trace blood in her ostomy bag this morning. Patient states her nausea is much better and she has not been receiving her nausea medication. She is still complaining of her chronic pain. Review of Systems General: No Chills, No Night Sweats HEENT: No Head Aches, No Visual Changes Pulmonary: No Dyspnea (on room air), No Cough Cardiovascular: No: Chest Pain, Palpitations Gastrointestinal: Abdominal Pain; No: Nausea, Vomiting Musculoskeletal: back pain Objective Exam Vital Signs Date Time Temp Pulse Resp B/P (MAP) Pulse Ox O2 Delivery O2 Flow Rate FiO2 01/03/22 23:25 36.5 106 18 109/68 (82) 95 Room Air 01/03/22 19:43 Room Air 01/03/22 19:42 35.6 116 16 135/80 (98) 96 Room Air 01/03/22 18:17 99 Nasal Cannula 1.00 01/03/22 15:52 35.6 109 16 128/84 (99) 97 Nasal Cannula 1.00 01/03/22 14:32 99 Nasal Cannula 1.00 01/03/22 11:35 35.7 110 17 130/83 (99) 99 Nasal Cannula 1.00 01/03/22 10:28 99 Nasal Cannula 1.00 01/03/22 08:00 Nasal Cannula 1.00 01/03/22 07:59 36.3 101 16 129/80 (96) 97 Nasal Cannula 1.00 I & O 01/04/22 07:00 Intake Total 1990 ml Output Total 4350 ml Balance -2360 ml Capillary Refill : Less Than 3 Seconds General Appearance: No Apparent Distress, WD/WN, Chronically ill Neck: Supple Respiratory: Lungs Clear, Normal Breath Sounds, No Accessory Muscle Use, No Respiratory Distress (on room air) Cardiovascular: Regular Rate, Rhythm, No Murmur, Normal Peripheral Pulses Peripheral Pulses: 2+ Radial Pulses (R), 2+ Radial Pulses (L) Gastrointestinal: distended (stable compared to yesterday), tenderness (mild tenderness near surgical sites), other (Ostomy pink and patent; stool in bag, I did not notice blood this AM. Still having some leakage at base of J-tube, but the paste appears to be holding the J tube in place much better) Extremity: Normal Capillary Refill, Non Tender, No Calf Tenderness, Pedal Edema (trace in LE; hand swelling appears slightly worse today) Neurologic/Psychiatric: Alert, Oriented x3, Depressed Affect Skin: Normal Color, Warm/Dry Results Lab Laboratory Tests 01/04/22 04:54: White Blood Count 9.9, Red Blood Count 2.63L, Hemoglobin 8.9L, Hematocrit 27L, Mean Corpuscular Volume 103H, Mean Corpuscular Hemoglobin 34, Mean Corpuscular Hemoglobin Concent 33, Red Cell Distribution Width 11.9, Platelet Count 315, Mean Platelet Volume 8.7L, Immature Granulocyte % (Auto) 3, Neutrophils (%) (Auto) 65, Lymphocytes (%) (Auto) 22, Monocytes (%) (Auto) 6, Eosinophils (%) (Auto) 3, Basophils (%) (Auto) 0, Neutrophils # (Auto) 6.5, Lymphocytes # (Auto) 2.2, Monocytes # (Auto) 0.6, Eosinophils # (Auto) 0.3, Basophils # (Auto) 0.0, Immature Granulocyte # (Auto) 0.3H, Sodium Level 138, Potassium Level 4.0, Chloride Level 106, Carbon Dioxide Level 22, Anion Gap 10, Blood Urea Nitrogen 4L, Creatinine 0.57L, Estimat Glomerular Filtration Rate 105, BUN/Creatinine Ratio 7, Glucose Level 133H, Calcium Level 8.1L, Corrected Calcium 9.5, Magnesium Level 1.6, Total Bilirubin 0.3, Aspartate Amino Transf (AST/SGOT) 49H, Alanine Aminotransferase (ALT/SGPT) 69H, Alkaline Phosphatase 109, Total Protein 4.9L, Albumin 2.3L Microbiology 12/31/21 MRSA Screen - Final, Complete MRSA not isolated 12/30/21 Blood Culture - Preliminary, Resulted No growth Assessment/Plan Assessment/Plan Assessment/Plan Partial Small Bowel Obstruction \ Large bowel obstruction - S/P day 6 ex lap w/ end colostomy for potential diverticular stricture/mass, awaiting pathology Sepsis - resolved- Patient on pip/tazo, white count 9.9. Anemia - Hgb 8.9 this morning, appears stable Hypokalemia - 4.0 this morning, continue to monitor Extensive history of abdominal surgery with Jejunostomy tube placement and spit fistula for upper esophagus Tachycardia - intermittent, not currently Elevated LFT's, intermittent, continue to monitor Chronic low back pain with long-term opiate use Hypertension Asthma Plan Pip/Tazo Continue IVF Continue Zofran for nausea control, added promethazine Q4 for breakthrough nausea, patient currently not using either Pain management - Currently Fentanyl and Oxycodone KCl replacement as needed Breathing treatments PRN Patient status post day 6 ex lap with end colostomy. Still awaiting pathology. Patient is currently getting her feeding at the rate calculated by nutrition and tolerating it. I think the next goal should be to attempt to D/C quiroga and have patient get up to use the restroom. Patient is currently working with PT. Patient also had discussions with Palliative care RN. If patient is able to start getting up to use the bathroom, I think the discussion can be had on what the next step is for the patient. I think she would benefit from in patient rehab or going to an outpatient facility with rehab capabilities, with the end goal being getting surgery at for Ostomy and esophageal reversal. CHRISTO CR DO 01/04/22 1150: Subjective Time Seen by a Provider: 11:04 Subjective/Events-last exam Pt seen and examined, states she is feeling better. Still has back pain. Review of Systems General: No Chills, No Night Sweats; Fatigue Pulmonary: No Dyspnea (on room air), No Cough Cardiovascular: No: Chest Pain, Palpitations Gastrointestinal: Abdominal Pain; No: Nausea, Vomiting Musculoskeletal: back pain Objective Exam General Appearance: No Apparent Distress, Chronically ill Respiratory: Lungs Clear, Normal Breath Sounds, No Accessory Muscle Use, No Respiratory Distress (on room air) Cardiovascular: Regular Rate, Rhythm, No Murmur Gastrointestinal: distended (stable compared to yesterday), tenderness (mild tenderness near surgical sites), other (Ostomy pink and patent; stool in bag, I did not notice blood this AM. Still having some leakage at base of J-tube, but the paste appears to be holding the J tube in place much better) Extremity: Pedal Edema (trace in LE; hand swelling appears slightly worse today) Neurologic/Psychiatric: Depressed Affect Assessment/Plan Assessment/Plan Assessment/Plan Partial Small Bowel Obstruction \ Large bowel obstruction - S/P day 6 ex lap w/ end colostomy for potential diverticular stricture/mass, awaiting pathology Sepsis - resolved- Patient on pip/tazo, white count 9.9. Anemia - Hgb 8.9 this morning, appears stable Hypokalemia - 4.0 this morning, continue to monitor Extensive history of abdominal surgery with Jejunostomy tube placement and spit fistula for upper esophagus Tachycardia - intermittent, not currently Elevated LFT's, intermittent, continue to monitor Chronic low back pain with long-term opiate use Hypertension Asthma Plan Pip/Tazo Continue IVF Continue Zofran for nausea control, added promethazine Q4 for breakthrough nausea, patient currently not using either Pain management - Currently Fentanyl and Oxycodone KCl replacement as needed Breathing treatments PRN Patient's feeding at the appropriate rate now. Plan to D/C quiroga and have patient get up to use the restroom. Patient is currently working with PT. Plan to get patient to rehab, LTAC or SNF to help rehab with PT/OT etc. End goal being getting surgery at for Ostomy and esophageal reversal. Supervisory-Addendum Brief Verification & Attestation Participated in pt care: history, MDM, physical Personally performed: exam, history, MDM, supervision of care Care discussed with: Medical Student Procedures: n/a Verification and Attestation of Medical Student E/M Service A medical student performed and documented this service. I then reviewed and verified all information documented by the medical student and made modifications to such information, when appropriate. I personally performed a physical exam, medical decision making and then discussed any differences between the notes and made revisions as necessary to create one note. Christo Cr , 01/04/22 , 11:50 JOSH MYLES Jan 04, 2022 07:36 CHRISTO CR DO Jan 04, 2022 11:50
[2022-01-04] MEDS: RT-ALBUTEROL/IPRATROPIUM 3 ML (DUONEB) VIAL INH SCH ×3 (07:51→15:42)
--- NOTE | 2022-01-04 11:14 | Physical Therapy Daily Note ---
PT Daily Note-Current Subjective Pt agrees to PT. Pt complains of pain in her legs while doing supine EX. Pain Numeric Pain Scale: 10-Worst Possible Pain Mental Status Patient Orientation: Normal For Age Attachments: NG Tube, Colostomy/Ileostomy, Benjamin Catheter, IV Transfers SCALE: Activities may be completed with or without assistive devices. 5-Rhpzbpthox-zgvxsqe completes the activity by him/herself with no assistance from a helper. 5-Set-up or Clean-up Assistance-helper sets up or cleans up; patient completes activity. [place] assists only prior to or following the activity. 4-Supervision or Touching Assistance-helper provides verbal cues and/or touching/steadying and/or contact guard assistance as patient completes activity. Assistance may be provided throughout the activity or intermittently. 3-Partial/Moderate Assistance-helper does LESS THAN HALF the effort. [place] lifts, holds or supports trunk or limbs, but provides less than half the effort. 2-Substantial/Maximal Assistance-helper does MORE THAN HALF the effort. [place] lifts or holds trunk or limbs and provides more than half the effort. 4-Ividiatqx-yqbctb does ALL the effort. Patient does none of the effort to complete the activity. Or, the assistance of 2 or more helpers is required for the patient to complete the activity. If activity was not attempted, code reason: 7-Patient Refused. 9-Not Applicable-not attempted and the patient did not perform the activity before the current illness, exacerbation or injury. 10-Not Attempted due to Environmental Limitations-(lack of equipment, weather restraints, etc.). 88-Not Attempted due to Medical Conditions or Safety Concerns. Roll Left & Right (QC): 4 Sit to Lying (QC): 3 Lying to Sitting/Side of Bed(Q: 3 Sit to Stand (QC): 4 SBA while standing, min assist with bed mobility with exception of rolling Weight Bearing Right Lower Extremity: Right Full Weight Bearing Left Lower Extremity: Left Full Weight Bearing Gait Training Does the Patient Walk?: Yes Distance: 5 side steps Gait Persons Needed: 1 Gait Assistive Device: FWW SBA with side stepping Exercises Supine Ex: Ankle pumps, Quad Set, Heel Slides Supine Reps: 8 Assessment Current Status: Fair Progress Pt declined sitting up in chair after much encouragement. Pt complains of muscle discomfort while doing EX. Pt can side step and stand with SBA. Pt sat at EOB for few minutes. Min assist with getting back in bed. Patient appears to self limit. PT Alf Goals Alf Goals PT Zinc Chloride Operator Goals Time Frame: Jan 12, 2022 Roll Left & Right (QC): 4 Sit to Lying (QC): 4 Lying-Sitting on Side/Bed(QC): 4 Sit to Stand (QC): 4 Chair/Kfa-kz-Zjpzy Xfer(QC): 4 Toilet Transfer (QC): 4 Does the Patient Walk: Yes Walk 10 feet (QC): 4 Walk 50ft with 2 Turns (QC): 4 PT Plan Treatment/Plan Treatment Plan: Continue Plan of Care Treatment Plan: Bed Mobility, Concurrent Therapy, Education, Functional Activity April, Functional Strength, Gait, Safety, Therapeutic Exercise, Transfers Treatment Duration: Jan 12, 2022 Frequency: 6 times per week Estimated Hrs Per Day: .25 hour per day Patient and/or Family Agrees t: Yes Time/GCodes Time In: 1030 Time Out: 1048 Total Billed Treatment Time: 18 Total Billed Treatment 1, FA (18 min) CONNOR HARPER PT Jan 04, 2022 11:14
--- NOTE | 2022-01-04 11:46 | Progress Note - Hospitalist ---
ESTELA CLIFTON 01/04/22 1146: Subjective HPI/CC On Admission Date Seen by Provider: Jan 04, 2022 Time Seen by Provider: 09:05 Subjective/Events-last exam The patient was laying in bed this morning and was not in acute distress. She reports her pain continues as a 10/10, however this seems to be overstated and not match her clinical presentation. She reports her pain is located in her abdomen and her lower back. She denies nausea. She has no other complaints. Review of Systems General: No Chills; Other (no fever ) HEENT: No Head Aches, No Visual Changes Pulmonary: No Dyspnea, No Cough Cardiovascular: No: Chest Pain, Palpitations Gastrointestinal: No: Nausea, Vomiting Genitourinary: No Dysuria, No Frequency Neurological: No: Change in speech, Confusion Objective Exam Vital Signs Vital Signs Date Time Temp Pulse Resp B/P (MAP) Pulse Ox O2 Delivery O2 Flow Rate FiO2 01/04/22 11:18 98 Room Air 01/04/22 07:30 35.8 103 17 122/81 (95) 01/03/22 18:17 1.00 01/02/22 15:33 21 Capillary Refill : Less Than 3 Seconds General Appearance: No Apparent Distress, Chronically ill HEENT: PERRL/EOMI, Moist Mucous Membranes Neck: Full Range of Motion, Normal Inspection, Non Tender, Supple Respiratory: Chest Non Tender, Lungs Clear, Normal Breath Sounds, No Accessory Muscle Use, No Respiratory Distress Cardiovascular: Regular Rate, Rhythm, No Edema, No Murmur, Normal Peripheral Pulses Gastrointestinal: Normal Bowel Sounds, No Organomegaly, No Pulsatile Mass, Soft, Tenderness (at R middle abdomen ) Extremity: Normal Inspection, Normal Range of Motion, Non Tender, No Calf Tenderness, No Pedal Edema Neurologic/Psychiatric: Alert, Oriented x3, No Motor/Sensory Deficits, Normal Mood/Affect Skin: Normal Color, Warm/Dry Lymphatic: No Adenopathy Results/Procedures Lab Laboratory Tests 01/04/22 04:54 Patient resulted labs reviewed. Assessment/Plan Assessment and Plan Assess & Plan/Chief Complaint Assessment: IKARA SBO status post ex-lap requiring lysis of adehsions and partial omentectomy Elevated liver enzymes Colostomy status Jejunostomy tube status Tracheostomy status Anemia Hypokalemia Hypertension Tachycardia (intermittent) severe debility chronic pain DVT prophylaxis Plan KIARA SBO status post ex-lap requiring lysis of adhesions and partial omentectomy Elevated liver enzymes Colostomy status Jejunostomy tube status Tracheostomy status Anemia Hypokalemia Hypertension Tachycardia (intermittent) suspicion for sepsis transfer to ICU for 12/31/21 severe debility chronic pain PT is planned to finish her Zosyn therapy today. PT will likely need to be in a group home care facility, or on home-health. Appreciate surgery. Continue Zofran and promethazine prn for nausea control. Continue IVF. Monitor liver enzymes. Continue PT/OT. DVT prophylaxis Lovenox injections KRUPA VAN DO 01/05/22 0544: Supervisory-Addendum Brief Verification & Attestation Participated in pt care: history, MDM, physical Personally performed: exam, history, MDM, supervision of care Care discussed with: Medical Student Procedures: n/a Results interpretation: Verified all documentation Verification and Attestation of Medical Student E/M Service A medical student performed and documented this service in my presence. I reviewed and verified all information documented by the medical student and made modifications to such information, when appropriate. I personally performed the physical exam and medical decision making. Krupa Van, Jan 05, 2022,05:44 ESTELA CLIFTON Jan 04, 2022 11:46 KRUPA VAN DO Jan 05, 2022 05:44
--- NOTE | 2022-01-04 11:59 | Occupational Ther Daily Note ---
OT Current Status-Daily Note Subjective Pt alert, laying in bed with daughter present in room when BAKER entered. Pt agreed to therapy. Mental Status/Objective Patient Orientation: Person, Place, Time, Situation ADL-Treatment Pt agreed to complete washing of face. After gathering of materials, pt was able to cleanse/dry her face. When asked if pt, would like to comb hair pt declined, but she accepted assist from therapist. Pt required max a to complete basic grooming task of combing hair while laying in bed. After session, pt laying in bed. Daughter present in room, all needs met and call light in reach. Therapy Code Descriptions/Definitions Functional [place] Measure: 0=Not Assessed/NA 4=Minimal Assistance 1=Total Assistance 5=Supervision or Setup 2=Maximal Assistance 6=Modified [place] 3=Moderate Assistance 7=Complete IndependenceSCALE: Activities may be completed with or without assistive devices. 2-Qastbubvbw-wkwuwop completes the activity by him/herself with no assistance from a helper. 5-Set-up or Clean-up Assistance-helper sets up or cleans up; patient completes activity. [place] assists only prior to or following the activity. 4-Supervision or Touching Assistance-helper provides verbal cues and/or touching/steadying and/or contact guard assistance as patient completes activity. Assistance may be provided throughout the activity or intermittently. 3-Partial/Moderate Assistance-helper does LESS THAN HALF the effort. [place] l ifts, holds or supports trunk or limbs, but provides less than half the effort. 2-Substantial/Maximal Assistance-helper does MORE THAN HALF the effort. [place] lifts or holds trunk or limbs and provides more than half the effort. 0-Leeyonpqk-mhfglo does ALL the effort. Patient does none of the effort to complete the activity. Or, the assistance of 2 or more helpers is required for t he patient to complete the activity. If activity was not attempted, code reason: 7-Patient Refused. 9-Not Applicable-not attempted and the patient did not perform the activity before the current illness, exacerbation or injury. 10-Not Attempted due to Environmental Limitations-(lack of equipment, weather restraints, etc.). 88-Not Attempted due to Medical Conditions or Safety Concerns. Education OT Patient Education: Correct positioning, Modified ADL techniques, Purpose of tx/functional activities Teaching Recipient: Patient Teaching Methods: Demonstration, Discussion Response to Teaching: Verbalize Understanding, Return Demonstration OT Paint Roller Covers Supervisor Goals Paint Roller Covers Supervisor Goals Time Frame: Jan 15, 2022 Oral Hygiene (QC): 5 Shower/Bathe Self (QC): 4 Upper Body Dressing (QC): 4 Lower Body Dressing (QC): 4 On/Off Footwear (QC): 3 1=Demonstrate adherence to instructed precautions during ADL tasks. 2=Patient will verbalize/demonstrate understanding of assistive devices/modifications for ADL. 3=Patient will improve strength/tolerance for activity to enable patient to perform ADL's. OT Education/Plan Problem List/Assessment Assessment: Decreased Activ Tolerance, Decreased UE Strength, Impaired I ADL's, Impaired Self-Care Skills Discharge Recommendations Plan/Recommendations: Continue POC Treatment Plan/Plan of Care Patient would benefit from OT for education, treatment and training to promote independence in ADL's, mobility, safety and/or upper extremity function for ADL's. Plan of Care: ADL Retraining, Caregiver Training, Functional Mobility, Group Exercise/Act as Ind, UE Funct Exercise/Act Treatment Duration: Jan 15, 2022 Frequency: 3 times per week (3-5x/week) Estimated Hrs Per Day: .25 hour per day Agreement: Yes Rehab Potential: Fair Time/GCodes Start Time: 11:40 Stop Time: 11:51 Total Time Billed (hr/min): 11 Billed Treatment Time 1 visit- ADL 1 (11mins) MADALYN CURRAN Jan 04, 2022 11:59
[2022-01-04] MEDS: ONDANSETRON 4 MG/2 ML (SDV) Z0FRAN IVP PRN ×2 (12:15→16:44)
[2022-01-04] MEDS ORDERED: ENOX40DI8 SC (12:36)
[2022-01-04] MEDS ORDERED: FENT1PAT9 TD (12:36)
[2022-01-04] MEDS ORDERED: PIPE4.5F IV (12:36)
--- NOTE | 2022-01-04 12:37 | Discharge Summary ---
Discharge Summary Hospital Course Was the Problem List Reviewed?: Yes Problems/Dx: (1) Small bowel obstruction Status: Acute (2) PEG tube malfunction Status: Acute (3) Tracheostomy complication Status: Acute Hospital Course With all these people having so many problems juices date of Admission: Dec 27, 2021 at 14:50 Admission Diagnosis : Family Physician/Provider: Jos Snow MD Date of Discharge: 01/04/22 Discharge Diagnosis: Small bowel obstruction, trach status, G-tube leakage Hospital Course: Pt is doing about the same Getting on edge of bed with therapy Smells of stool from bowel obstruction and J [facility] Course: Patient was admitted on 12/27/21 and discharged on 01/04/22. Patient was admitted from the ED to the 4th floor. Chest Xray on 12/27/21 showed evidence of a small bowel obstruction which was followed up with a CT of the abdomen and pelvis without contrast on the same date, which showed findings concerning for a small bowel obstruction. Patient received CBC testing throughout her hospital course, which showed a down-trending hemoglobin resulting in anemia. CBC testing also demonstrated Leukocytosis between 12/30/21 to . CMP demonstrated hypokalemia on 12/30/21. On 12/30/21 she had a colon resection with end colostomy requiring lysis of adhesions and a partial omentectomy. The patient was transfered to the ICU on 12/31/21 due to episodes of tachycardia which were suspicious for sepsis. She moved back to the 4th floor on 01/01/22. The PT rec eived IV Zosyn therapy starting on 12/30/21 due to the sepsis concerns. Zosyn therapy was stopped today. Her surgical incision, and colostomy bag contents were monitored throughout her hospital stay. Her hemoglobin levels were monitored throughout her hospital course. Her pain was managed with Fentanyl and Oxycodone. The PT recieved replacement potassium through her hospital course for hypokalemia correction. IVF were administered throughout her hospital course. On discharge, the PT will be sent to [facility]. This summary does not include the entirety of the patient's visit and is only a short description of pertinent information. For the complete hospital course, please refer to the patient's chart. Date of Admission: 12/27/21 Date of Discharge: 01/04/22 Attending Physician: Dr. Krupa Woodard, DO Admission Diagnosis: Small Bowel Obstruction Discharge Diagnosis: Severe debility poor prognosis Consultations: General surgery, Tele-ICU Procedures: Colon resection with end colostomy requiring lysis of adhesions and a partial omentectomy ESTELA CLIFTON Jan 04, 2022 13:23 Labs and Pending Lab Test: Laboratory Tests 01/04/22 04:54: White Blood Count 9.9, Red Blood Count 2.63L, Hemoglobin 8.9L, Hematocrit 27L, Mean Corpuscular Volume 103H, Mean Corpuscular Hemoglobin 34, Mean Corpuscular Hemoglobin Concent 33, Red Cell Distribution Width 11.9, Platelet Count 315, Mean Platelet Volume 8.7L, Immature Granulocyte % (Auto) 3, Neutrophils (%) (Auto) 65, Lymphocytes (%) (Auto) 22, Monocytes (%) (Auto) 6, Eosinophils (%) (Auto) 3, Basophils (%) (Auto) 0, Neutrophils # (Auto) 6.5, Lymphocytes # (Auto) 2.2, Monocytes # (Auto) 0.6, Eosinophils # (Auto) 0.3, Basophils # (Auto) 0.0, Immature Granulocyte # (Auto) 0.3H, Sodium Level 138, Potassium Level 4.0, Chloride Level 106, Carbon Dioxide Level 22, Anion Gap 10, Blood Urea Nitrogen 4L, Creatinine 0.57L, Estimat Glomerular Filtration Rate 105, BUN/Creatinine Ratio 7, Glucose Level 133H, Calcium Level 8.1L, Corrected Calcium 9.5, Magnesium Level 1.6, Total Bilirubin 0.3, Aspartate Amino Transf (AST/SGOT) 49H, Alanine Aminotransferase (ALT/SGPT) 69H, Alkaline Phosphatase 109, Total Protein 4.9L, Albumin 2.3L Microbiology 12/31/21 MRSA Screen - Final, Complete MRSA not isolated 12/30/21 Blood Culture - Preliminary, Resulted No growth Home Meds Active Fentanyl Patch 50 MCG (Fentanyl) 50 Mcg/Hour Patch.td72 50 Mcg TD Q72H 7 Days Enoxaparin Sodium 40 Mg/0.4 Ml Syringe 40 Mg SC Q24H 7 Days Zosyn 4.5 gm/100 ml Galaxy Bag (Ttnmcgezccee-Hsiz-Mgjlslmj,Iso) 4.5 Gram/100 Ml Froz.piggy 4.5 Gm IV Q8H 3 Days Reported Protonix (Pantoprazole Sodium) 40 Mg Granpkt.dr 40 Mg JT HS Benadryl Allergy (Diphenhydramine HCl) 25 Mg Tablet 25 Mg JT Q6H Ferrous Sulfate 220 Mg/5 Ml Elixir 5 Ml JT TID Morphine Conc. 20mg/ml (Morphine Sulfate) 100 Mg/5 Ml Solution 0.5-1 Ml JT Q4H PRN Ventolin Hfa (Albuterol Sulfate) 18 Gm Hfa.aer.ad 2 Puff INH Q4H PRN Albuterol Sulfate 2.5 Mg/3 Ml Vial.neb 3 Ml INH Q4H PRN Oxycodone HCl 10 Mg Tablet 10 Mg JT Q4H PRN Promethazine HCl 12.5 Mg Tablet 12.5 Mg JT Q6H Ativan (Lorazepam) 1 Mg Tablet 1 Mg JT Q6H PRN Ropinirole HCl 0.25 Mg Tablet 0.25 Mg JT HS Sertraline HCl 50 Mg Tablet 50 Mg JT DAILY Reglan (Metoclopramide HCl) 10 Mg Tablet 10 Mg JT Q6H Assessment/Pt Instructions Transfer to [place] Discharge Planning: <30 minutes discharge planning Discharge Instructions Discharge Diet: No Restrictions Discharge Physical Examination Vital Signs Vital Signs Date Time Temp Pulse Resp B/P (MAP) Pulse Ox O2 Delivery O2 Flow Rate FiO2 01/04/22 11:18 98 Room Air 01/04/22 07:30 35.8 103 17 122/81 (95) 01/03/22 18:17 1.00 01/02/22 15:33 21 General Appearance: No Apparent Distress, WD/WN, Chronically ill, Obese Allergies: Coded Allergies: codeine (Unverified Adverse Reaction, Unknown, 09/03/18) severe stomach pain Discharge Summary Date of Admission Dec 27, 2021 at 14:50 Date of Discharge Discharge Date: Jan 04, 2022 Discharge Diagnosis Supportive care Palliative care consult KRUPA WOODARD DO Jan 04, 2022 12:37
--- NOTE | 2022-01-04 13:23 | Progress Note ---
ESTELA CLIFTON 01/04/22 1323: Progress Note Brief Hospital Course: Patient was admitted on 12/27/21 and discharged on 01/04/22. Patient was admitted from the ED to the 4th floor. Chest Xray on 12/27/21 showed evidence of a small bowel obstruction which was followed up with a CT of the abdomen and pelvis without contrast on the same date, which showed findings concerning for a small bowel obstruction. Patient received CBC testing throughout her hospital course, which showed a down-trending hemoglobin resulting in anemia. CBC testing also demonstrated Leukocytosis between 12/30/21 to . CMP demonstrated hypokalemia on 12/30/21. On 12/30/21 she had a colon resection with end colostomy requiring lysis of adhesions and a partial omentectomy. The patient was transfered to the ICU on 12/31/21 due to episodes of tachycardia which were suspicious for sepsis. She moved back to the 4th floor on 01/01/22. The PT received IV Zosyn therapy starting on 12/30/21 due to the sepsis concerns. Zosyn therapy was stopped today. Her surgical incision, and colostomy bag contents were monitored throughout her hospital stay. Her hemoglobin levels were monitored throughout her hospital course. Her pain was managed with Fentanyl and Oxycodone. The PT recieved replacement potassium through her hospital course for hypokalemia correction. IVF were administered throughout her hospital course. On discharge, the PT will be sent to [facility]. This summary does not include the entirety of the patient's visit and is only a short description of pertinent information. For the complete hospital course, please refer to the patient's chart. Date of Admission: 12/27/21 Date of Discharge: 01/04/22 Attending Physician: Dr. Krupa Woodard DO Admission Diagnosis: Small Bowel Obstruction Discharge Diagnosis: Severe debility poor prognosis Consultations: General surgery, Tele-ICU Procedures: Colon resection with end colostomy requiring lysis of adhesions and a partial omentectomy KRUPA WOODARD DO 01/05/22 0544: Supervisory-Addendum Brief Verification & Attestation Participated in pt care: history, MDM, physical Personally performed: exam, history, MDM, supervision of care Care discussed with: Medical Student Procedures: n/a Results interpretation: Verified all documentation Verification and Attestation of Medical Student E/M Service A medical student performed and documented this service in my presence. I reviewed and verified all information documented by the medical student and made modifications to such information, when appropriate. I personally performed the physical exam and medical decision making. Krupa Woodard, Jan 05, 2022,05:44 ESTELA CLIFTON Jan 04, 2022 13:23 KRUPA WOODARD DO Jan 05, 2022 05:44
[2022-01-04 16:00] VITALS: BP 140/81
[2022-01-04] MEDS: ENOXAPARIN 40 MG/0.4 ML (LOVENOX) SYR SC SCH ×2 (16:44→16:56)
[2022-01-04 17:28] VITALS: BP 140/81
== END 2022-01-04 17:29 | DRG 329 ==
LOC: EDUNIT# 10:35 → ER 10:36 → 4TH 14:50 → ICU 12-30 20:20 → 4TH 01-01 14:13
PROVIDERS: ADMIT Family Medicine; ATTEND Internal Medicine
PROC: 0D1N0Z4 Bypass Sigmoid Colon to Cutaneous, Open Approach (ICD-10-PCS; 2021-12-29)
PROC: 0D980ZZ Drainage of Small Intestine, Open Approach (ICD-10-PCS; 2021-12-29)
PROC: 0DBU0ZZ Excision of Omentum, Open Approach (ICD-10-PCS; 2021-12-29)
PROC: 0DBN0ZZ Excision of Sigmoid Colon, Open Approach (ICD-10-PCS; principal; 2021-12-29 19:20)
DX: K56.51 Intestinal adhesions [bands], with partial obstruction (principal); A41.9 Sepsis, unspecified organism; N17.9 Acute kidney failure, unspecified; K56.699 Other intestinal obstruction unspecified as to partial versus complete obstruction; E86.0 Dehydration; Z93.1 Gastrostomy status; Z93.4 Other artificial openings of gastrointestinal tract status; R33.9 Retention of urine, unspecified; K59.09 Other constipation; E87.6 Hypokalemia; R06.03 Acute respiratory distress; F41.9 Anxiety disorder, unspecified; E87.8 Other disorders of electrolyte and fluid balance, not elsewhere classified; F32.A Depression, unspecified; R74.8 Abnormal levels of other serum enzymes; J45.909 Unspecified asthma, uncomplicated; I10 Essential (primary) hypertension; K21.9 Gastro-esophageal reflux disease without esophagitis; M54.9 Dorsalgia, unspecified; H54.7 Unspecified visual loss; Z82.49 Family history of ischemic heart disease and other diseases of the circulatory system; Z88.5 Allergy status to narcotic agent
CPT/HCPCS: 36415; 36569; 71045; 74018; 74176; 76937; 80048; 80053; 82947; 83605; 83690; 83735; 84100; 85007; 85025; 85027; 85610; 85730; 87040; 87081; 94640; 94664; 94760; 96361; 96374; 96375

== ENCOUNTER 2022-02-04 11:45 | Emergency (ER) | payer MEDICARE, MEDICAID ==
[~2022-02-04] VITALS: Ht 149 cm; Wt 56.0 kg
[~2022-02-04 11:45] MED LIST changes: +ALBU18HF2 INH; +ALBU2.5V4 INH; +ALBU90AE INH; +BUDE10.26 INH; +DIPH25TA65 JT; +ENOX40DI8 SC; +FENT1PAT9 TD; +FESO45ML JT; +LORA-405 JT; +MORP100S7 JT; +OXYC10TA7 JT; +PANT40SU JT; +PIPE4.5F IV; +PROM12.511 JT; +ROPI0.253 JT; +SERT-413 JT
--- NOTE | 2022-02-04 12:19 | ED General ---
General Stated Complaint: PORT IS BLOCKED Source of Information: Patient Exam Limitations: No Limitations (MOLLY LERMA) History of Present Illness Date Seen by Provider: February 04, 2022 Time Seen by Provider: 12:17 Initial Comments Patient is a 61-year-old female who presents ED for clogged PICC line. Patient has home health nurse that comes out and checks blood. Had blood drawn from the PICC line yesterday and uses for TPN. Daughter at bedside concerned that she was not able to flush the line today. Concern for clogged PICC line. No other concerns at this time. Requesting flushing at this time (MOLLY LERMA) Allergies and Home Medications Allergies Coded Allergies: codeine (Unverified Adverse Reaction, Unknown, 09/03/18) severe stomach pain Patient Home Medication List Home Medication List Reviewed: Yes (MOLLY LERMA) Albuterol Sulfate (Albuterol Sulfate) 2.5 Mg/3 Ml Vial.neb, 3 ML INH Q4H PRN for SHORTNESS OF BREATH, (Reported) Entered as Reported by: LURDES PARTIDA on 12/28/21 1234 Albuterol Sulfate (Ventolin Hfa) 18 Gm Hfa.aer.ad, 2 PUFF INH Q4H PRN for SHORTNESS OF BREATH, (Reported) Entered as Reported by: CHRISTIE MEANS on 12/28/21 1417 Diphenhydramine HCl (Benadryl Allergy) 25 Mg Tablet, 25 MG JT Q6H, (Reported) Entered as Reported by: CHRISTIE MEANS on 12/28/21 1417 Enoxaparin Sodium (Enoxaparin Sodium) 40 Mg/0.4 Ml Syringe, 40 MG SC Q24H Prescribed by: BISHOP VAN on 01/04/22 1236 Fentanyl (Fentanyl Patch 50 MCG) 50 Mcg/Hour Patch.td72, 50 MCG TD Q72H Prescribed by: BISHOP VAN on 01/04/22 1236 Ferrous Sulfate (Ferrous Sulfate) 220 Mg/5 Ml Elixir, 5 ML JT TID, (Reported) Entered as Reported by: CHRISTIE MEANS on 12/28/21 1417 Lorazepam (Ativan) 1 Mg Tablet, 1 MG JT Q6H PRN for ANXIETY, (Reported) Entered as Reported by: LURDES PARTIDA on 12/28/21 1234 Metoclopramide HCl (Reglan) 10 Mg Tablet, 10 MG JT Q6H, (Reported) Entered as Reported by: CHRISTIE MEANS on 11/21/19 1518 Morphine Sulfate (Morphine Conc. 20mg/ml) 100 Mg/5 Ml Solution, 0.5-1 ML JT Q4H PRN for PAIN-SEVERE (8-10), (Reported) Entered as Reported by: CHRISTIE MEANS on 12/28/21 1417 Oxycodone HCl (Oxycodone HCl) 10 Mg Tablet, 10 MG JT Q4H PRN for PAIN- BREAKTHROUGH, (Reported) Entered as Reported by: LURDES PARTIDA on 12/28/21 1234 Pantoprazole Sodium (Protonix) 40 Mg Granpkt.dr, 40 MG JT HS, (Reported) Entered as Reported by: CHRISTIE MEANS on 12/28/21 1417 Uzaalloicrer-Rmjy-Zpviwwrw,Iso (Zosyn 4.5 gm/100 ml Galaxy Bag) 4.5 Gram/100 Ml Froz.piggy, 4.5 GM IV Q8H Prescribed by: BISHOP VAN on 01/04/22 1236 Promethazine HCl (Promethazine HCl) 12.5 Mg Tablet, 12.5 MG JT Q6H, (Reported) Entered as Reported by: LURDES PARTIDA on 12/28/21 1234 Ropinirole HCl (Ropinirole HCl) 0.25 Mg Tablet, 0.25 MG JT HS, (Reported) Entered as Reported by: LURDES PARTIDA on 12/28/21 1234 Sertraline HCl (Sertraline HCl) 50 Mg Tablet, 50 MG JT DAILY, (Reported) Entered as Reported by: LURDES PARTIDA on 12/28/21 1234 Review of Systems Review of Systems Constitutional: No chills EENTM: No blurred vision, No double vision Respiratory: No cough, No dyspnea on exertion Cardiovascular: No chest pain Gastrointestinal: No abdominal pain, No diarrhea, No nausea, No vomiting Genitourinary: No decreased output, No discharge Musculoskeletal: No back pain, No joint pain Skin: No change in color, No change in hair/nails (MOLLY LERMA) All Other Systems Reviewed Negative Unless Noted: Yes (MOLLY LERMA) Past Gxbkwhc-Guiafp-Xpgasq Hx Immunizations Up To Date Tetanus Booster (TDap): Unknown First/Initial COVID19 Vaccinat: 09/24/2021 Second COVID19 Vaccination Kedar: 11/16/2021 (MOLLY LERMA) Seasonal Allergies Seasonal Allergies: Yes (MOLLY LERMA) Past Medical History Surgeries: Yes (J-tube placement, partial Esophagectomy) Abdominal, Gallbladder, Hysterectomy Respiratory: Yes Asthma Currently Using CPAP: No Currently Using BIPAP: No Cardiac: No Hypertension Neurological: No 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 Disorders: No Female 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 Disorders: Denies 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 Sexually Transmitted Disease: No HIV/AIDS: No Genitourinary: No Gastrointestinal: Yes Obstructive Bowel Musculoskeletal: Yes Arthritis, Chronic Back Pain Endocrine: No HEENT: No Loss of Vision: Denies Hearing Impairment: Denies Cancer: No Psychosocial: Yes Depression Integumentary: No Blood Disorders: No Adverse Reaction/Blood Tranf: No (MOLLY LERMA) Family Medical History Hypertension 19 FATHER G8 SISTER Heart Disease (MOLLY LERMA) Physical Exam Vital Signs Vital Signs - First Documented 02/04/22 12:24 Temp 36.4 Pulse 99 Resp 20 B/P (MAP) 151/96 (114) O2 Delivery Room Air (BRAYDON PEREZ MD) Vital Signs Capillary Refill : (MOLLY LERMA) Height, Weight, BMI Height: 4'11.00" Weight: 98lbs. 14.4oz. 44.124952fl; 25.56 BMI Method:Stated General Appearance: No Apparent Distress, WD/WN Eyes: Bilateral Eye Normal Inspection, Bilateral Eye PERRL, Bilateral Eye EOMI HEENT: PERRL/EOMI, TMs Normal, Normal ENT Inspection, Pharynx Normal Neck: Full Range of Motion, Normal Inspection, Non Tender, Supple Respiratory: Chest Non Tender, Lungs Clear, Normal Breath Sounds, No Accessory Muscle Use Cardiovascular: Regular Rate, Rhythm, No Edema, No Gallop, No JVD, No Murmur Gastrointestinal: Normal Bowel Sounds, Non Tender, Other (Colostomy bag noted) Extremity: Normal Capillary Refill, Normal Inspection, Normal Range of Motion, Non Tender Neurologic/Psychiatric: Alert, Oriented x3, No Motor/Sensory Deficits, Normal Mood/Affect Skin: Normal Color, Warm/Dry (MOLLY LERMA) Procedures/Interventions Patient Education: Explained Benefits, Explained Risks, Pt. Ack. Understanding Breath Sounds per Auscultation: Crackles, Wheezes Heart Sounds per Auscultation: Regular Airway Exam: Mouth opens >2 fingers, Neck Full Range of Motion, Visulation of Uvula Sedation Adminstration Time: 180 Re-examination Time: 184 (MOLLY LERMA) Progress/Results/Core Measures Suspected Sepsis SIRS Temperature: Pulse: Respiratory Rate: Blood Pressure / Mean: (MOLLY LERMA) Results/Orders Vital Signs/I&O 02/04/22 12:24 Temp 36.4 Pulse 99 Resp 20 B/P (MAP) 151/96 (114) O2 Delivery Room Air (BRAYDON PEREZ MD) Vital Signs/I&O Capillary Refill : (MOLLY LERMA) Departure Communication (PCP) Successfully flushed the PICC line. Patient has no other current complaints. Discussed PICC line care at home. They agree with plan of action. (MOLLY LERMA) Impression Primary Impression: Occluded PICC line Disposition: 01 HOME, SELF-CARE Condition: Stable Departure-Patient Inst. Decision time for Depature: 12:19 (MOLLY LERMA) Referrals: CHIQUITA RICH MD (PCP/Family) Primary Care Physician Patient Instructions: General (DC) ATTENDING PHYSICIAN NOTE: I was physically present as attending physician in the emergency department during the care of this patient, but I was not directly involved in the decision making or delivery of care for this patient. (BRAYDON PEREZ MD) MOLLY LERMA February 04, 2022 12:19 BRAYDON PEREZ MD February 04, 2022 19:32
[2022-02-04 12:24] VITALS: BP 151/96
== END 2022-02-04 12:36 | disposition home or self-care (01) ==
LOC: EDUNIT# 11:45 → ER 11:46
DX: T82.594A Other mechanical complication of infusion catheter, initial encounter (principal)
CPT/HCPCS: 99281

== ENCOUNTER 2022-02-13 11:11 | Inpatient (IN) | payer MEDICARE, MEDICAID ==
[~2022-02-13] VITALS: Ht 150 cm; Wt 45.0 kg
--- NOTE | 2022-02-13 11:29 | ED General ---
General Chief Complaint: Abdominal/GI Problems Stated Complaint: PEG TUBE PROBLEMS Nursing Triage Note: DRY HEAVING, PEG TUBE REMOVED, PT REPORTS DEHYDRATED Source of Information: Patient, EMS Exam Limitations: No Limitations History of Present Illness Date Seen by Provider: February 13, 2022 Time Seen by Provider: 11:19 Initial Comments Patient is a 61-year-old female who presents to the emergency department today with a chief complaint of generalized malaise, fatigue and weakness. She has generalized abdominal discomfort that occasionally is more on the left side of her abdomen than anywhere else. She thinks she is dehydrated. 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 She has a drainage tube from her esophagus at the base of her neck. She also was in the hospital approximately December of this year and had a bowel obstruction and perforation which resulted in a colostomy. After the Marisol she had a PEG tube placed in the left side of her abdomen. While she was in recovery at [facility] from the colostomy the PEG tube became dislodged and would not stay in. [facility] reportedly talked to "Dr. Strange" the patient surgeon at and he stated that he would wait for the PEG tube site to heal and then he would put in the new one. Since that time the patient has been being fed by TPN through a PICC line in her right upper extremity. She thinks that she is not getting enough fluids. She does come in quite tachycardic in the 135 range. Her blood pressure is good. Her oxygen saturations are good. She is exhibiting no increased work of breathing. She does state that she is nauseated. Daughter at the bedside states she has had increased drainage from the PEG tube site to where she is having to change the bag overlying the site multiple times per day. She is also having to change the drainage bag from the esophagus multiple times a day whereas previously she did not have to do this. She is having normal yellow-brown stool out of her colostomy site. She denies urinary tract symptoms. No rashes or upper respiratory tract symptoms. All other review of systems reviewed and negative except as stated. Timing/Duration: 1-2 Days Associated Systoms: Malaise, Nausea/Vomiting, Weakness Allergies and Home Medications Allergies Coded Allergies: codeine (Unverified Adverse Reaction, Unknown, 09/03/18) severe stomach pain Patient Home Medication List Home Medication List Reviewed: Yes Albuterol Sulfate (Albuterol Sulfate) 2.5 Mg/3 Ml Vial.neb, 3 ML INH Q4H PRN for SHORTNESS OF BREATH, (Reported) Entered as Reported by: LURDES PARTIDA on 12/28/21 1234 Albuterol Sulfate (Ventolin Hfa) 18 Gm Hfa.aer.ad, 2 PUFF INH Q4H PRN for SHORTNESS OF BREATH, (Reported) Entered as Reported by: CHRISTIE MEANS on 12/28/21 1417 Diphenhydramine HCl (Benadryl Allergy) 25 Mg Tablet, 25 MG JT Q6H, (Reported) Entered as Reported by: CHRISTIE MEANS on 12/28/21 141 Enoxaparin Sodium (Enoxaparin Sodium) 40 Mg/0.4 Ml Syringe, 40 MG SC Q24H Prescribed by: BISHOP VAN on 01/04/22 1236 Fentanyl (Fentanyl Patch 50 MCG) 50 Mcg/Hour Patch.td72, 50 MCG TD Q72H Prescribed by: BISHOP VAN on 01/04/22 1236 Ferrous Sulfate (Ferrous Sulfate) 220 Mg/5 Ml Elixir, 5 ML JT TID, (Reported) Entered as Reported by: CHRISTIE MEANS on 12/28/21 141 Lorazepam (Ativan) 1 Mg Tablet, 1 MG JT Q6H PRN for ANXIETY, (Reported) Entered as Reported by: LURDES PARTIDA on 12/28/21 1234 Metoclopramide HCl (Reglan) 10 Mg Tablet, 10 MG JT Q6H, (Reported) Entered as Reported by: CHRISTIE MEANS on 11/21/19 1518 Morphine Sulfate (Morphine Conc. 20mg/ml) 100 Mg/5 Ml Solution, 0.5-1 ML JT Q4H PRN for PAIN-SEVERE (8-10), (Reported) Entered as Reported by: CHRISTIE MEANS on 12/28/21 1417 Ondansetron (Ondansetron Odt) 4 Mg Tab.rapdis, 4 MG PO Q6H PRN for nausea Prescribed by: LAMINE DELUNA on 02/13/22 1528 Oxycodone HCl (Oxycodone HCl) 10 Mg Tablet, 10 MG JT Q4H PRN for PAIN- BREAKTHROUGH, (Reported) Entered as Reported by: LURDES PARTIDA on 12/28/21 1234 Pantoprazole Sodium (Protonix) 40 Mg Granpkt.dr, 40 MG JT HS, (Reported) Entered as Reported by: CHRISTIE MEANS on 12/28/21 1417 Hpwkyritokbf-Dkhh-Zrngiwoa,Iso (Zosyn 4.5 gm/100 ml Galaxy Bag) 4.5 Gram/100 Ml Froz.piggy, 4.5 GM IV Q8H Prescribed by: BISHOP VAN on 01/04/22 1236 Promethazine HCl (Promethazine HCl) 12.5 Mg Tablet, 12.5 MG JT Q6H, (Reported) Entered as Reported by: LURDES PARTIDA on 12/28/21 1234 Ropinirole HCl (Ropinirole HCl) 0.25 Mg Tablet, 0.25 MG JT HS, (Reported) Entered as Reported by: LURDES PARTIDA on 12/28/21 1234 Sertraline HCl (Sertraline HCl) 50 Mg Tablet, 50 MG JT DAILY, (Reported) Entered as Reported by: LURDES PARTIDA on 12/28/21 1234 Review of Systems Review of Systems Constitutional: see HPI EENTM: no symptoms reported Respiratory: no symptoms reported Cardiovascular: no symptoms reported Gastrointestinal: abdominal pain, nausea, other ("dry heaving") Genitourinary: no symptoms reported Musculoskeletal: no symptoms reported Skin: no symptoms reported Psychiatric/Neurological: No Symptoms Reported All Other Systems Reviewed Negative Unless Noted: Yes Past Ckddcqk-Qjmruh-Truohs Hx Immunizations Up To Date Tetanus Booster (TDap): Unknown First/Initial COVID19 Vaccinat: 09/24/2021 Second COVID19 Vaccination Kedar: 11/16/2021 Third COVID19 Vaccination Date: 09/24/2021 Seasonal Allergies Seasonal Allergies: Yes Past Medical History Surgeries: Yes (J-tube placement, partial Esophagectomy) Abdominal, Gallbladder, Hysterectomy Respiratory: Yes Asthma Currently Using CPAP: No Currently Using BIPAP: No Cardiac: No Hypertension Neurological: No 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 Disorders: No Female 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 Disorders: Denies 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 Sexually Transmitted Disease: No HIV/AIDS: No Genitourinary: No Gastrointestinal: Yes Obstructive Bowel Musculoskeletal: Yes Arthritis, Chronic Back Pain Endocrine: No HEENT: No Loss of Vision: Denies Hearing Impairment: Denies Cancer: No Psychosocial: Yes Depression Integumentary: No Blood Disorders: No Adverse Reaction/Blood Tranf: No Family Medical History Hypertension 19 FATHER G8 SISTER Heart Disease Physical Exam Vital Signs Vital Signs - First Documented 02/13/22 02/13/22 11:18 11:31 Temp 37.3 Pulse 130 Resp 22 B/P (MAP) 137/100 (112) Pulse Ox 96 O2 Delivery Room Air Capillary Refill : Height, Weight, BMI Height: 4'11.00" Weight: 98lbs. 14.4oz. 44.233399yn; 20.00 BMI Method:Stated General Appearance: No Apparent Distress, Chronically ill Eyes: Bilateral Eye Normal Inspection, Bilateral Eye PERRL, Bilateral Eye EOMI HEENT: PERRL/EOMI, Other (dry mucous membranes) Neck: Other (esophageal tube at base of neck, no surrounding erythema. no purulence) Respiratory: Lungs Clear, Normal Breath Sounds, No Accessory Muscle Use, No Respiratory Distress Cardiovascular: Regular Rate, Rhythm, Normal Peripheral Pulses, Tachycardia (132 HR) Gastrointestinal: Soft, Other (Colostomy noted left lower quadrant with another bag overlying the former PEG tube site. There is clear yellowish fluid at this ostomy site that resembles urine. The abdomen is diffusely soft but still mildly tender. Not distended. Bowel sounds are present. I removed the dressing from a midline surgical scar and the scar looks to be well-healing without erythema. She does have a little redness forming at the top of the right side of her abdomen just under her right breast. It is not draining. It is slightly warm.) Extremity: Normal Inspection, No Pedal Edema Neurologic/Psychiatric: Alert, Oriented x3, No Motor/Sensory Deficits, Depressed Affect Skin: Warm/Dry, Pallor Focused Exam Lactate Level 02/13/22 12:10: Lactic Acid Level 1.55 Lactic Acid Level Laboratory Tests Test 02/13/22 12:10 Lactic Acid Level 1.55 MMOL/L (0.50-2.00) Procedures/Interventions Patient Education: Explained Benefits, Explained Risks, Pt. Ack. Understanding Breath Sounds per Auscultation: Crackles, Wheezes Heart Sounds per Auscultation: Regular Airway Exam: Mouth opens >2 fingers, Neck Full Range of Motion, Visulation of Uvula Sedation Adminstration Time: 1803 Re-examination Time: 1845 Progress/Results/Core Measures Suspected Sepsis SIRS Temperature: Pulse: 130 Respiratory Rate: Laboratory Tests 02/13/22 12:10: White Blood Count 7.6 Blood Pressure 137 /100 Mean: 112 02/13/22 12:10: Lactic Acid Level 1.55 Laboratory Tests 02/13/22 12:10: Creatinine 0.63, INR Comment 1.0, Platelet Count 138, Total Bilirubin 1.5H Results/Orders Lab Results Laboratory Tests Test 02/13/22 11:50 02/13/22 12:10 02/13/22 14:00 Range/Units Influenza Type A (RT-PCR) Not Detected Not Detecte Influenza Type B (RT-PCR) Not Detected Not Detecte SARS-CoV-2 RNA (RT-PCR) Not Detected Not Detecte White Blood Count 7.6 4.3-11.0 10^3/uL Red Blood Count 4.08 3.80-5.11 10^6/uL Hemoglobin 12.7 11.5-16.0 g/dL Hematocrit 40 35-52 % Mean Corpuscular Volume 97 80-99 fL Mean Corpuscular Hemoglobin 31 25-34 pg Mean Corpuscular Hemoglobin Concent 32 32-36 g/dL Red Cell Distribution Width 12.3 10.0-14.5 % Platelet Count 138 130-400 10^3/uL Mean Platelet Volume 10.5 9.0-12.2 fL Immature Granulocyte % (Auto) 1 % Neutrophils (%) (Auto) 83 H 42-75 % Lymphocytes (%) (Auto) 11 L 12-44 % Monocytes (%) (Auto) 5 0-12 % Eosinophils (%) (Auto) 0 0-10 % Basophils (%) (Auto) 0 0-10 % Neutrophils # (Auto) 6.3 1.8-7.8 10^3/uL Lymphocytes # (Auto) 0.9 L 1.0-4.0 10^3/uL Monocytes # (Auto) 0.4 0.0-1.0 10^3/uL Eosinophils # (Auto) 0.0 0.0-0.3 10^3/uL Basophils # (Auto) 0.0 0.0-0.1 10^3/uL Immature Granulocyte # (Auto) 0.1 0.0-0.1 10^3/uL Percent Immature Platelet Fraction 3.0 0.0-7.6 % Prothrombin Time 13.3 12.2-14.7 SEC INR Comment 1.0 0.8-1.4 Activated Partial Thromboplast Time 31 24-35 SEC Sodium Level 138 135-145 MMOL/L Potassium Level 4.0 3.6-5.0 MMOL/L Chloride Level 109 H 98-107 MMOL/L Carbon Dioxide Level 16 L 21-32 MMOL/L Anion Gap 13 5-14 MMOL/L Blood Urea Nitrogen 25 H 7-18 MG/DL Creatinine 0.63 0.60-1.30 MG/DL Estimat Glomerular Filtration Rate 102 BUN/Creatinine Ratio 40 Glucose Level 168 H 70-105 MG/DL Lactic Acid Level 1.55 0.50-2.00 MMOL/L Calcium Level 9.0 8.5-10.1 MG/DL Corrected Calcium 9.6 8.5-10.1 MG/DL Total Bilirubin 1.5 H 0.1-1.0 MG/DL Aspartate Amino Transf (AST/SGOT) 51 H 5-34 U/L Alanine Aminotransferase (ALT/SGPT) 113 H 0-55 U/L Alkaline Phosphatase 231 H 40-136 U/L Total Protein 7.7 6.4-8.2 GM/DL Albumin 3.3 3.2-4.5 GM/DL Urine Color ORANGE Urine Clarity SL CLOUDY Urine pH 6.0 5-9 Urine Specific [place] >=1.030 1.016-1.022 Urine Protein 2+ H NEGATIVE Urine Glucose (UA) NEGATIVE NEGATIVE Urine Ketones NEGATIVE NEGATIVE Urine Nitrite NEGATIVE NEGATIVE Urine Bilirubin 1+ H NEGATIVE Urine Urobilinogen 0.2 < = 1.0 MG/DL Urine Leukocyte Esterase NEGATIVE NEGATIVE Urine RBC (Auto) NEGATIVE NEGATIVE Urine RBC NONE /HPF Urine WBC 10-25 H /HPF Urine Squamous Epithelial Cells 5-10 /HPF Urine Crystals NONE /LPF Urine Bacteria FEW H /HPF Urine Casts PRESENT /LPF Urine Granular Casts 5-10 H /LPF Urine Mucus NEGATIVE /LPF Urine Culture Indicated CULTURE PENDING My Orders Orders - LAMINE DELUNA MD Cbc With Automated Diff (02/13/22 11:27) Comprehensive Metabolic Panel (02/13/22 11:27) Blood Culture (02/13/22 11:27) Sputum Culture (02/13/22 11:) Urinalysis (02/13/22 11:) Urine Culture (02/13/22:) Protime With Inr (02/13/22 11:) Partial Thromboplastin Time (02/13/22 11:) Chest 1 View, Ap/Pa Only (02/13/22 11:) Ed Iv/Invasive Line Start (02/13/22 11:) Ed Iv/Invasive Line Start (02/13/22 11:) Vital Signs Adult Sepsis Patie Q15M (02/13/22 11:) O2 (02/13/22 11:) Remove Rings In Anticipation O (02/13/22:) Lactic Acid Analyzer (02/13/22 11:) Covid 19 Inhouse Test (02/13/22 11:) Influenza A And B By Pcr (02/13/22 11:) Isolation Central Supply Req (02/13/22 11:27) Ns Iv 1000 Ml (Sodium Chloride 0.9%) (02/13/22 11:30) Ondansetron Injection (Zofran Injectio (02/13/22 11:45) Ondansetron Injection (Zofran Injectio (02/13/22 11:32) Ns Iv 1000 Ml (Sodium Chloride 0.9%) (02/13/22 14:00) Morphine Injection (Morphine Injection (02/13/22 14:06) Alteplase (Cathflo) Injection (Cathflo (02/13/22 14:45) Pantoprazole Injection (Protonix Injecti (02/13/22 14:45) Ed Admission (Communication) (02/13/22 16:00) Meropenem (Merrem 1000 Mg) (02/13/22 16:00) Vancomycin Injection (Vancomycin Injecti (02/13/22 16:00) Medications Given in ED Current Medications Medications Dose Ordered Sig/Toni Route Start Time Stop Time Status Last Admin Dose Admin Ondansetron HCl 4 mg ONCE ONCE IVP 02/13/22 11:45 02/13/22 11:46 DC 02/13/22 11:34 4 MG Pantoprazole 40 mg ONCE ONCE IV 02/13/22 14:45 02/13/22 14:46 DC 02/13/22 15:34 40 MG Vancomycin HCl 1000 mg/Sodium Chloride 250 ml @ 250 mls/hr ONCE ONCE IV 02/13/22 16:00 02/13/22 16:59 DC 02/13/22 16:24 250 MLS/HR Vital Signs/I&O 02/13/22 02/13/22 11:18 11:31 Temp 37.3 37.3 Pulse 130 127 Resp 22 B/P (MAP) 137/100 (112) 134/96 Pulse Ox 96 96 O2 Delivery Room Air Room Air Capillary Refill : Blood Pressure Mean: 112 Progress Note #1: Time: 15:15 Progress Note Discussed with [facility] out [facility]. They stated that if they got an order sent to them for teaching for medications to be flush to the PICC line in addition to the TPN they could provide that service. They could instruct the daughter on how to push meds through the IV. Patient remains still little bit tachycardic in the upper 1 teens. She states "I feel bad". Her blood pressure however is in the 130s systolic. She is afebrile. Her oxygen saturations are normal. She does have a white count of 7.6 with a slight left shift. She also has evidence of the urinary tract infection as well. Chest x- ray did not show anything remarkable for an acute pneumonia. She is certainly not exhibiting signs of respiratory distress persistent cough or other concerning pulmonary findings. Her abdomen is soft. She has bowel sounds. She has output from both the former J-tube site as well as her colostomy bag. She has not dry heaves or exhibited any signs of needing to vomit. I do not suspect a new obstruction. I do not suspect any acute infectious process in her abdomen because the exam is so benign. I have reassured Herbert as well as her daughter. I will put her on some antibiotics for UTI. A couple of years ago she grew out E. coli that was sensitive to Macrobid. We will start her on that as well as send over prescription for ODT Zofran. I encouraged the daughter to call [facility] in order to get her IV prescription of Protonix. I also encouraged the daughter to call "Dr. Vigil" office on Monday in [place] to arrange a follow-up appointment to further evaluate the PEG tube site as it has so much drainage. She needs close follow-up especially in light of all of the multiple surgeries and complications she has had in the last 6 months. Progress Note #2: Time: 15:58 Progress Note Discussed with Dr. Van for [facility] as I realized while typing out discharge instructions I have no way to administer antibiotics to this patient at home. She has bumped a slight temperature to 100.4. Her heart rate is still elevated in the 117 range. Although she is not hypotensive, she is not hypoxic, she does not have an elevated white blood cell count, she is SIRS criteria with now fever, tachycardia and a source of infection. Dr. Van requested that I start her on meropenem and vancomycin. She also requested that I make Dr. LEY aware of the patient's admission so that he can pass on the information to Dr. Bragg once he comes back on service on Monday. Progress Note #3: Time: 17:14 Progress Note notified now temp is 102. will give 15mg toradol Diagnostic Imaging Diagonstic Imaging: Xray Plain Films/CT/US/NM/MRI: chest Comments [facility]. [place], [place] NAME: HERBERT XAVIER [facility] REC#: [id number] PT STATUS: REG ER : 1960 PHYSICIAN: LAMINE DELUNA MD ADMIT DATE: 02/13/22/ER Draft Date of Exam:02/13/22 CHEST 1 VIEW, AP/PA ONLY CLINICAL INDICATIONS: Patient dry heaving and PICC removed. EXAM: Portable chest x-ray upright view. COMPARISON: Chest x-ray dated 12/23/2021. FINDINGS: There is interval progression of amorphous airspace opacities involving left lung base which may represent atelectasis. Superimposed infiltrate cannot be completely excluded. There is progression of a small left pleural effusion. The remainder of lungs are clear. Right PICC line seen with tip in the distal superior vena cava. Tubing seen overlying the mediastinal region again noted. There is no pneumothorax. Pulmonary vasculature and cardiac silhouette are within normal limits. Suspected calcified lymph nodes in the left hilar region. IMPRESSION: 1: There is progression of left lung base atelectasis or infiltrate. There is progression of a small left pleural effusion. 2: Interval placement right PICC line in good position. Dictated on workstation # [id number] Dict: 02/13/22 1156 Trans: 02/13/22 1206 CV [id number] Interpreted by: KE SARMIENTO MD Electronically signed by: Departure Communication (Admissions) Time/Spoke to Admitting Phy: 15:[address] Van - will put in que'd orders Time/Spoke to Consulting Phy: 16:[address] Ley Impression Primary Impression: Dehydration Additional Impressions: Chronic abdominal pain UTI (urinary tract infection) Qualified Codes: N30.00 - Acute cystitis without hematuria Disposition: ADMITTED INPATIENT Condition: Stable Admissions Decision to Admit Reason: Admit from ER (General) Decision to Admit/Date: February 13, 2022 Time/Decision to Admit Time: 15:55 Departure-Patient Inst. Decision time for Depature: 15:21 Referrals: CHIQUITA RICH MD (PCP/Family) Primary Care Physician Patient Instructions: Dehydration, Adult ED, Urinary Tract Infections in Adults Add. Discharge Instructions: Take the antibiotics, Macrobid, 1 tablet twice daily for 5 days. I have prescribed you some Zofran dissolving tablets. You can take 1 every 6-8 hours as needed for nausea. These will melt in your mouth and be absorbed through your mouth. Please call [facility] for an appointment to discuss with Dr. Nelson getting her Protonix prescribed IV. They will need to send the prescription to the pharmacy that provides her TPN. And her doctor will need to send an order to the home health agency for teaching the administration of the Protonix. Please also call your surgeon's office at for a follow-up appointment as soon as possible regarding the PEG tube site. If you run a fever or have any other worsening, concerning symptoms please come back to the emergency room for reevaluation. Scripts Ondansetron (Ondansetron Odt) 4 Mg Tab.rapdis 4 MG PO Q6H PRN for nausea, #20 TAB Prov: LAMINE DELUNA MD 02/13/22 LAMINE DELUNA MD February 13, 2022 11:29
[2022-02-13] MEDS ORDERED: NS IV 1000 ML 1,000 ML IV SCH ×2 (11:30→14:00)
[2022-02-13] MEDS ORDERED: ONDANSETRON 4 MG/2 ML (SDV) Z0FRAN ONE (11:32)
[2022-02-13] MEDS ORDERED: ONDANSETRON 4 MG/2 ML (SDV) Z0FRAN IVP ONE ×2 (11:45→16:45)
--- NOTE | 2022-02-13 12:06 | Diagnostic Imaging Report ---
CLINICAL INDICATIONS: Patient dry heaving and PICC removed. EXAM: Portable chest x-ray upright view. COMPARISON: Chest x-ray dated 12/23/2021. FINDINGS: There is interval progression of amorphous airspace opacities involving left lung base which may represent atelectasis. Superimposed infiltrate cannot be completely excluded. There is progression of a small left pleural effusion. The remainder of lungs are clear. Right PICC line seen with tip in the distal superior vena cava. Tubing seen overlying the mediastinal region again noted. There is no pneumothorax. Pulmonary vasculature and cardiac silhouette are within normal limits. Suspected calcified lymph nodes in the left hilar region. IMPRESSION: 1: There is progression of left lung base atelectasis or infiltrate. There is progression of a small left pleural effusion. 2: Interval placement right PICC line in good position. Dictated by: Dictated on workstation # [id number]
[2022-02-13 12:30] LABS: BASOPHILS % (AUTO) 0 % (0-10); HEMOGLOBIN 12.7 g/dL (11.5-16.0); MEAN CORPUSCULAR VOLUME 97 fL (80-99)
[2022-02-13 12:32] LABS: EOSINOPHILS % (AUTO) 0 % (0-10); HEMATOCRIT 40 % (35-52); LYMPHOCYTES # (AUTO) 0.9 10^3/uL (1.0-4.0); LYMPHOCYTES % (AUTO) 11 % (12-44); MEAN CORPUSCULAR HEMOGLOBIN 31 pg (25-34); MEAN CORPUSCULAR HGB CONC 32 g/dL (32-36); MEAN PLATELET VOLUME 10.5 fL (9.0-12.2); MONOCYTES # (AUTO) 0.4 10^3/uL (0.0-1.0); MONOCYTES % (AUTO) 5 % (0-12); NEUTROPHILS # (AUTO) 6.3 10^3/uL (1.8-7.8); NEUTROPHILS % (AUTO) 83 % (42-75); PLATELET COUNT 138 10^3/uL (130-400); WHITE BLOOD COUNT 7.6 10^3/uL (4.3-11.0)
[2022-02-13 12:38] LABS: ALBUMIN 3.3 GM/DL (3.2-4.5)
[2022-02-13 12:41] LABS: TOTAL PROTEIN 7.7 GM/DL (6.4-8.2)
[2022-02-13 12:43] LABS: BILIRUBIN,TOTAL 1.5 MG/DL (0.1-1.0)
[2022-02-13 12:44] LABS: CREATININE SERUM 0.63 MG/DL (0.60-1.30)
[2022-02-13 12:50] LABS: PROTHROMBIN TIME PATIENT 13.3 SEC (12.2-14.7)
[2022-02-13] MEDS ORDERED: morphine INJ 10 MG/ML 1ML (SYR OR VIAL) IVP STA (14:06)
[2022-02-13 14:08] LABS: BILIRUBIN,URINE 1+ (NEGATIVE); CLARITY,URINE SL CLOUDY; COLOR,URINE ORANGE; GLUCOSE, URINE (UA) NEGATIVE (NEGATIVE); KETONES,URINE NEGATIVE (NEGATIVE); LEUKOCYTE ESTERASE ,URINE NEGATIVE (NEGATIVE); NITRITE,URINE NEGATIVE (NEGATIVE); PROTEIN,URINE 2+ (NEGATIVE)
[2022-02-13 14:19] LABS: BACTERIA,URINE FEW /HPF
[2022-02-13] MEDS ORDERED: PANTOPRAZOLE 40 MG (PROTONIX) VIAL IV ONE (14:45)
[2022-02-13] MEDS: ALTEPLASE 2 MG (CATHFLO) IV ONE ×2 (15:25→17:09)
[2022-02-13] MEDS ORDERED: ONDA4TAB11 PO (15:28)
[2022-02-13] MEDS ORDERED: NITR-65 PO (15:28)
[2022-02-13] MEDS ORDERED: MEROPENEM 1,000 MG in NS (IVPB) 100 ML IV ONE (16:00)
[2022-02-13] MEDS ORDERED: VANCOMYCIN INJECTION 1,000 MG in NS (IVPB) 250 ML IV ONE (16:00)
[2022-02-13] MEDS ORDERED: MEROPENEM 1,000 MG in NS (IVPB) 100 ML IV SCH (17:15)
[2022-02-13] MEDS ORDERED: ENOXAPARIN 40 MG/0.4 ML (LOVENOX) SYR SC SCH (17:15)
[2022-02-13] MEDS ORDERED: VANCOMYCIN INJECTION 0.1 MG in NS (IVPB) 250 ML IV SCH (17:15)
[2022-02-13] MEDS ORDERED: KETOROLAC 30 MG/ML VIAL IVP ONE (17:15)
[2022-02-13] MEDS ORDERED: NS IV 1000 ML 1,000 ML ONE (17:28)
[2022-02-13] MEDS: NS IV 1000 ML 1,000 ML IV SCH (17:43)
[2022-02-13 20:00] VITALS: BP 129/82
[2022-02-13] MEDS: ENOXAPARIN 40 MG/0.4 ML (LOVENOX) SYR SC SCH (20:17)
[2022-02-13] MEDS: HYDROmorphone 2 MG/ML VIAL (DILAUDID) IV PRN (20:18)
[2022-02-13 20:40] VITALS: BP 137/100
[2022-02-13] MEDS ORDERED: RT-ALBUTEROL SULF 2.5 MG/3 ML PRE-MIX VIAL INH PRN (21:00)
--- NOTE | 2022-02-13 23:30 | CONSULTATION REPORT ---
DATE OF SERVICE: ADMITTING PHYSICIAN: Dr. Woodard. ATTENDING PRIMARY CARE PHYSICIAN: Dr. Jos Snow. HISTORY OF PRESENT ILLNESS: The patient is a 61-year-old female with a complicated past medical history. She underwent a hiatal hernia repair as well as an antireflux procedure due to Christianson's esophagus; however, she then had a reoccurrence. She was then referred to [facility] where she underwent attempted repair of the recurrent hiatal hernia; however, a significant stricture developed in the esophagus requiring partial esophagectomy, a cervical esophagostomy as well as what sounds to be a gastrostomy tube as well as a jejunostomy tube. She has been following Dr. Escobar, who has an oncologic surgeon, who does do a lot of foregut surgery. Since her previous surgeries, she has been receiving alimentation through the jejunostomy tube. The patient had reported not having a bowel movement for approximately one week and also developed abdominal distention and crampy pain. She had also developed intermittent episodes of nausea. Upon presentation to the Emergency Department, she had a CT scan, which did show possible transition point along the small bowel near the right lower abdominal quadrant. On 12/30/2021, she underwent an exploratory laparotomy, lysis of small bowel adhesions, left-sided colon resection for what appeared to be a stricture as well as end colostomy and Emilie's pouch creation. Since her acute stay at [facility], she was then transferred to [facility]. She was brought back to the Emergency Department for generalized weakness, abdominal discomfort as well as dehydration. The staff at [facility] and noted that the jejunostomy tube had dislodged. She has a PICC line and has been receiving TPN since that time. This information was obtained through the emergency room physician as well as electronic medical records. Physical examination will be evaluated upon seeing the patient and noted. PAST MEDICAL HISTORY: Gastroesophageal reflux disease, Christianson's esophagus, hypertension, degenerative joint disease, asthma. PAST SURGICAL HISTORY: Total hysterectomy, hiatal hernia repair and antireflux procedure with recurrence and attempt at a repair of the recurrent hiatal hernia; however, this was unsuccessful then she underwent a partial esophagectomy and cervical esophagostomy placement as well as gastrostomy tube and feeding jejunostomy tube placement and laparoscopic cholecystectomy. ALLERGIES: CODEINE. MEDICATIONS: Albuterol nebulizer q.4 hours p.r.n., albuterol inhaler 2 puffs q.4 hours p.r.n., diphenhydramine 25 mg q.6 hours p.r.n., enoxaparin 40 mg daily, fentanyl patch 50 mcg every 3 days, iron 220 mg daily, lorazepam 1 mg q.6 hours p.r.n., Reglan 10 mg q.6 hours, morphine 20 mg q.4 hours p.r.n., Zofran 4 mg q.6 hours p.r.n., oxycodone 10 mg q.4 hours p.r.n., Protonix 40 mg daily, Zosyn 4.5 grams q.8 hours, promethazine 12.5 mg q.6 hours, alprazolam 0.25 mg daily, sertraline 50 mg daily. SOCIAL HISTORY: Negative smoke, negative alcohol. FAMILY HISTORY: Father, sister, hypertension. VITAL SIGNS: Temperature 37.3, blood pressure 129/82, pulse 130, respirations 13, pulse ox 96% on 2 liters nasal cannula. REVIEW OF SYSTEMS: This is a slightly thin-appearing female, currently in no acute distress. She is experiencing weakness as well as exertional shortness of breath. No new cough or sputum production. Intermittent episodes of nausea, her jejunostomy tube had fallen out and has sealed over, history of constipation. No known red blood per rectum, no dark tarry stools. No fever, chills with some weight loss over the past few months. PHYSICAL EXAMINATION: Will be evaluated in the a.m. LABORATORY DATA: WBC 7.6, hemoglobin 12.7, hematocrit 40, platelets 138, BUN 25, creatinine 0.63. ASSESSMENT AND PLAN: A 61-year-old female with dehydration secondary to a loss of enteral access for alimentation. She will be admitted, placed on IV fluids as well as continuation of TPN. We are unsure if the tube was a gastrostomy tube versus a feeding jejunostomy tube; however, the patient does not have any access for percutaneous placement and we will sign off the patient to her primary surgeon to see what he would like to do next in terms of placement of some form of enteral feeding tube. For now, we will continue with IV crystalloids as well as TPN and monitor her urine output for adequate perfusion. Job ID: [id number] DocumentID: [id number] Dictated Date: 02/13/2022 21:32:48 Patent Prosecution Paralegal Date: 02/13/2022 23:29:59 Dictated By: TAI SANCHEZ MD MTDD
[2022-02-14] VITALS (7 sets, daily range): BP systolic 110–145; BP diastolic 69–86
[2022-02-14] MEDS: ONDANSETRON 4 MG/2 ML (SDV) Z0FRAN IV PRN ×5 (00:02→23:08)
[2022-02-14] MEDS: MEROPENEM 500 MG/NS 100 ML IVPB IV SCH ×10 (00:02→23:25)
[2022-02-14] MEDS: LORazepam INJ 2 MG/ML (ATIVAN) VIAL IVP PRN (00:02)
[2022-02-14 04:50] LABS: BASOPHILS % (AUTO) 0 % (0-10); EOSINOPHILS % (AUTO) 0 % (0-10); HEMATOCRIT 32 % (35-52); HEMOGLOBIN 9.9 g/dL (11.5-16.0); LYMPHOCYTES # (AUTO) 1.2 10^3/uL (1.0-4.0); LYMPHOCYTES % (AUTO) 21 % (12-44); MEAN CORPUSCULAR HEMOGLOBIN 31 pg (25-34); MEAN CORPUSCULAR HGB CONC 31 g/dL (32-36); MEAN CORPUSCULAR VOLUME 98 fL (80-99); MEAN PLATELET VOLUME 10.1 fL (9.0-12.2); MONOCYTES # (AUTO) 0.3 10^3/uL (0.0-1.0); MONOCYTES % (AUTO) 5 % (0-12); NEUTROPHILS # (AUTO) 4.2 10^3/uL (1.8-7.8); NEUTROPHILS % (AUTO) 73 % (42-75); PLATELET COUNT 93 10^3/uL (130-400); WHITE BLOOD COUNT 5.7 10^3/uL (4.3-11.0)
[2022-02-14 05:07] LABS: ALBUMIN 2.5 GM/DL (3.2-4.5); POTASSIUM 4.1 MMOL/L (3.6-5.0)
[2022-02-14 05:08] LABS: CALCIUM 8.3 MG/DL (8.5-10.1)
[2022-02-14 05:09] LABS: TOTAL PROTEIN 5.7 GM/DL (6.4-8.2)
[2022-02-14 05:11] LABS: BILIRUBIN,TOTAL 1.6 MG/DL (0.1-1.0)
[2022-02-14 05:13] LABS: CREATININE SERUM 0.73 MG/DL (0.60-1.30)
[2022-02-14] MEDS: NS IV 1000 ML 1,000 ML IV SCH ×3 (05:20→23:15)
[2022-02-14] MEDS: PANTOPRAZOLE 40 MG (PROTONIX) VIAL IV SCH (05:20)
[2022-02-14] MEDS: HYDROmorphone 2 MG/ML VIAL (DILAUDID) IV PRN ×7 (05:35→23:24)
--- NOTE | 2022-02-14 07:17 | History & Physical-Hospitalist ---
History of Present Illness HPI/Chief Complaint CC: Weakness HPI: This is a 61yoWF clinic patient of [facility] who is known to me from prior hospital stays who has a h/o diverting colostomy and esophageal resection who just DC'ed from [facility] 9 days ago after 1 month of hospital stay for respiratory failure and multi-system failure. She was found to have early UTI and early PNA requiring admit for IV abx since there is no access for PO due to removal of J tube. She remains on TPN. She coughs constantly but no cough suppressants can be given due to NPO status and no esophagus. Dr Ley consulted and attempted to replace J tube but the stoma was stenosed and unable to place it. Patient appears to be very end stage and a hospice candidate. Patient will be moved to the 4th floor today. Enrike and Vanc maintained. Source: patient, RN/MD, old records Date Seen 02/14/22 Time Seen by a Provider: 10:00 Attending Physician Jos Snow MD PCP Admitting Physician: Bishop Van DO Attending Physician: Bishop Van DO Referring Physician Date of Admission February 13, 2022 at 16:01 Home Medications & Allergies Home Medications Reviewed patient Home Medication Reconciliation performed by pharmacy medication reconciliations sample prep technician and/or nursing. Patients Allergies have been reviewed. Allergies Allergies Coded Allergies codeine (Unverified Adverse Reaction, Unknown, 09/03/18) severe stomach pain Past Jnhilqx-Exwdxz-Knnfqn Hx Patient Social History Marrital Status: single Employed/Student: unemployed Tobacco Use?: No Smoking Status: Former Smoker Use of E-Cig and/or Vaping dev: No Substance use?: No Alcohol Use?: No Immunizations Up To Date Date of Influenza Vaccine: Nov 15, 2019 First/Initial COVID19 Vaccinat: 09/24/2021 Second COVID19 Vaccination Kedar: 11/16/2021 Tetanus Booster (TDap): Less Than 5 Years Date of Pneumonia Vaccine: Sep 18, 2019 Seasonal Allergies Seasonal Allergies: Yes Current Status Advance Directives: No Communicates: Verbally Primary Language: Vincentian Preferred Spoken Language: Vincentian Is interpretation needed?: No Sensory deficits: Vision impairment Implanted or Applied Medical D: Medication pump Past Medical History Surgeries: Abdominal, Gallbladder, Hysterectomy Asthma Currently Using CPAP: No Currently Using BIPAP: No Hypertension 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 History: Hysterectomy Sexually Transmitted Disease: No HIV/AIDS: No Obstructive Bowel Arthritis, Chronic Back Pain Loss of Vision: Denies Hearing Impairment: Denies Depression Blood Disorders: No Adverse Reaction/Blood Tranf: No PMHx: Asthma Depression Anxiety SurgHx: Cholecystectomy Hysterectomy Paraesophageal hernia repair with incarcerated transverse colon and tail of pancreas 02/2016 Ventral hernia repair with mesh 05/2016 EGD showing recurrent paraesophgeal hernia 07/2018 (referred to [facility]) Repeat paraesophageal hernia repair 11/14/2018 in [place] Left pneumonothorax with chest tube placement 11/23/2018 Bronchoscopy 12/06/2018 EGD noting severe esophageal stricutre with microperforation 01/08/2019 (transferred to ) T tube placement at , gastric and jejeunostomy tubes placed, discharged on hospice not wanting major interventions T tube lost and readmitted 04/2020 to and had EGD and tube placement, enteral feedings started per jejunostomy portion with gastrostomy portion to drainage Cervical esophagostomy placed 05/04/2020 at Family Medical History Hypertension 19 FATHER G8 SISTER Heart Disease Review of Systems Constitutional: see HPI, malaise, weakness EENTM: no symptoms reported Respiratory: cough, dyspnea on exertion, short of breath Cardiovascular: no symptoms reported Gastrointestinal: no symptoms reported Genitourinary: no symptoms reported Musculoskeletal: no symptoms reported Skin: no symptoms reported Psychiatric/Neurological: No Symptoms Reported All Other Systems Reviewed Negative Unless Noted: Yes Physical Exam Physical Exam Vital Signs Vital Signs - First Documented 02/13/22 02/13/22 02/13/22 02/13/22 11:18 11:31 20:40 21:00 Temp 37.3 Pulse 130 Resp 22 B/P (MAP) 137/100 (112) Pulse Ox 96 O2 Delivery Room Air O2 Flow Rate 2.00 FiO2 21 Capillary Refill : Less Than 3 Seconds Height, Weight, BMI Height: 4'11.00" Weight: 98lbs. 14.4oz. [id number]; 20.00 BMI Method:Stated General Appearance: Anxious, Chronically ill, Mild Distress, Other (fatigued, coughing constantly) HEENT: PERRL/EOMI, Normal ENT Inspection, Other (throat stoma) Respiratory: Accessory Muscle Use, Crackles, Decreased Breath Sounds Cardiovascular: Regular Rate, Rhythm Neurologic/Psychiatric: Alert, Oriented x3, Disoriented Results Results/Procedures Labs Laboratory Tests 02/13/22 12:10 02/14/22 04:41 Patient resulted labs reviewed. Assessment/Plan Admission Diagnosis Assessment: UTI PNA Chronic esophagus resection Diverting colostomy by Dr Bragg Cough due to aspiration? J-tube removal needs replaced TPN maintained Severe debility Plan: IVF IV abx Dr Ley appreciated TPN Admission Status: Inpatient Order (span 2 midnights) Reason for Inpatient Admission: sepsis BISHOP VAN DO February 14, 2022 07:17
[2022-02-14] MEDS: VANCOMYCIN 500 MG/NS 100 ML IVPB IV SCH ×4 (07:57→19:59)
--- NOTE | 2022-02-14 09:57 | Progress Note ---
Subjective Date Seen by a Provider: February 14, 2022 Time Seen by a Provider: 09:30 Subjective/Events-last exam Patient seen with Dr. Ley. Patient reports still having abdominal pain but is tolerable with pain meds, does report chronic abdominal pain but was worse yesterday. Having nausea. Does report ambulating to bathroom. Focused Exam Lactate Level 02/13/22 12:10: Lactic Acid Level 1.55 Objective Exam Vital Signs Date Time Temp Pulse Resp B/P (MAP) Pulse Ox O2 Delivery O2 Flow Rate FiO2 02/14/22 09:12 96 Nasal Cannula 2.00 02/14/22 08:35 95 Nasal Cannula 2.00 02/14/22 08:00 113 16 125/77 (93) 97 Nasal Cannula 2.00 02/14/22 07:52 36.1 116 14 115/73 (87) 97 Nasal Cannula 2.00 02/14/22 07:06 98 02/14/22 07:02 94 Nasal Cannula 2.00 02/14/22 04:00 36.0 110 18 115/73 (87) 94 02/14/22 01:00 116 02/14/22 00:00 36.8 130 16 110/86 (94) 94 02/13/22 22:42 96 Nasal Cannula 2.00 02/13/22 21:00 95 Room Air 2.00 02/13/22 20:40 37.3 130 96 21 02/13/22 20:00 36.3 137 13 129/82 (98) 94 02/13/22 19:00 128 02/13/22 18:00 37.6 02/13/22 17:52 151 02/13/22 17:21 39.1 02/13/22 17:20 39.1 135 18 125/83 91 Room Air 02/13/22 17:14 39.1 135 18 125/83 91 Room Air 02/13/22 11:31 37.3 127 22 134/96 96 Room Air 02/13/22 11:18 37.3 130 137/100 (112) 96 Room Air I & O 02/14/22 07:00 Intake Total 2000 ml Output Total 1510 ml Balance 490 ml Capillary Refill : Less Than 3 Seconds General Appearance: No Apparent Distress, WD/WN Neck: Supple, Other (Anterior mucus fistula with clear sputum around insertion site. No signs of infection.) Respiratory: Normal Breath Sounds, No Accessory Muscle Use, No Respiratory Distress Cardiovascular: Regular Rate, Rhythm, No Edema Gastrointestinal: normal bowel sounds, soft, tenderness (LUQ), other (Left colostomy functioning. LUQ feeding tube insertion site with drainage bag with bile colored fluid in bag. No signs of infection) Extremity: Normal Inspection, Normal Range of Motion Neurologic/Psychiatric: Alert, Oriented x3 Skin: Normal Color, Warm/Dry Results Lab Laboratory Tests 02/13/22 11:50: Influenza Type A (RT-PCR) Not Detected, Influenza Type B (RT-PCR) Not Detected, SARS-CoV-2 RNA (RT-PCR) Not Detected 02/13/22 12:10: White Blood Count 7.6, Red Blood Count 4.08, Hemoglobin 12.7, Hematocrit 40, Mean Corpuscular Volume 97, Mean Corpuscular Hemoglobin 31, Mean Corpuscular Hemoglobin Concent 32, Red Cell Distribution Width 12.3, Platelet Count 138, Mean Platelet Volume 10.5, Immature Granulocyte % (Auto) 1, Neutrophils (%) (Auto) 83H, Lymphocytes (%) (Auto) 11L, Monocytes (%) (Auto) 5, Eosinophils (%) (Auto) 0, Basophils (%) (Auto) 0, Neutrophils # (Auto) 6.3, Lymphocytes # (Auto) 0.9L, Monocytes # (Auto) 0.4, Eosinophils # (Auto) 0.0, Basophils # (Auto) 0.0, Immature Granulocyte # (Auto) 0.1, Percent Immature Platelet Fraction 3.0, Prothrombin Time 13.3, INR Comment 1.0, Activated Partial Thromboplast Time 31, Sodium Level 138, Potassium Level 4.0, Chloride Level 109H, Carbon Dioxide Level 16L, Anion Gap 13, Blood Urea Nitrogen 25H, Creatinine 0.63, Estimat Glomerular Filtration Rate 102, BUN/Creatinine Ratio 40, Glucose Level 168H, Lactic Acid Level 1.55, Calcium Level 9.0, Corrected Calcium 9.6, Total Bilirubin 1.5H, Aspartate Amino Transf (AST/SGOT) 51H, Alanine Aminotransferase (ALT/SGPT) 113H, Alkaline Phosphatase 231H, Total Protein 7.7, Albumin 3.3 02/13/22 14:00: Urine Color ORANGE, Urine Clarity SL CLOUDY, Urine pH 6.0, Urine Specific Campbell >=1.030, Urine Protein 2+H, Urine Glucose (UA) NEGATIVE, Urine Ketones NEGATIVE, Urine Nitrite NEGATIVE, Urine Bilirubin 1+H, Urine Urobilinogen 0.2, Urine Leukocyte Esterase NEGATIVE, Urine RBC (Auto) NEGATIVE, Urine RBC NONE, Urine WBC 10-25H, Urine Squamous Epithelial Cells 5-10, Urine Crystals NONE, Urine Bacteria FEWH, Urine Casts PRESENT, Urine Granular Casts 5-10H, Urine Mucus NEGATIVE, Urine Culture Indicated CULTURE PENDING 02/14/22 04:41: White Blood Count 5.7, Red Blood Count 3.21L, Hemoglobin 9.9#L, Hematocrit 32L, Mean Corpuscular Volume 98, Mean Corpuscular Hemoglobin 31, Mean Corpuscular Hemoglobin Concent 31L, Red Cell Distribution Width 12.5, Platelet Count 93L, Mean Platelet Volume 10.1, Immature Granulocyte % (Auto) 1, Neutrophils (%) (Auto) 73, Lymphocytes (%) (Auto) 21, Monocytes (%) (Auto) 5, Eosinophils (%) (Auto) 0, Basophils (%) (Auto) 0, Neutrophils # (Auto) 4.2, Lymphocytes # (Auto) 1.2, Monocytes # (Auto) 0.3, Eosinophils # (Auto) 0.0, Basophils # (Auto) 0.0, Immature Granulocyte # (Auto) 0.0, Sodium Level 143, Potassium Level 4.1, Chloride Level 117H, Carbon Dioxide Level 16L, Anion Gap 10, Blood Urea Nitrogen 26H, Creatinine 0.73, Estimat Glomerular Filtration Rate 95, BUN/Creatinine Ratio 36, Glucose Level 90, Calcium Level 8.3L, Corrected Calcium 9.5, Total Bilirubin 1.6H, Aspartate Amino Transf (AST/SGOT) 53H, Alanine Aminotransferase (ALT/SGPT) 112H, Alkaline Phosphatase 178H, Total Protein 5.7L, Albumin 2.5L Assessment/Plan Assessment/Plan Assess & Plan/Chief Complaint A 61-year-old female with dehydration secondary to a loss of enteral access for alimentation. VSS WBC 5.7 Colostomy functioning Continue with IV fluids, TPN, pain and nausea meds as needed. Will need to follow up with primary surgeon at once she is released. JULIANNE SNYDER HEAD BATCHER February 14, 2022 09:57
--- NOTE | 2022-02-14 10:27 | Physical Therapy Evaluation ---
PT Evaluation-General Medical Diagnosis Admission Date February 13, 2022 at 16:01 Medical Diagnosis: jejugenostomy tube dislodged Onset Date: February 14, 2022 Therapy Diagnosis Therapy Diagnosis: debility Height/Weight Height (Feet): 4 Height (Inches): 11.00 Weight (Pounds): 98 Weight (Ounces): 14.4 Precautions Precautions/Isolations: Fall Prevention Weight Bear Status Full Weight Bearing Full Weight Bearing Referral Physician: Vance Reason for Referral: Evaluation/Treatment Medical History Pertinent Medical History: GERD, HTN Social History unclear with patient's past living status Prior Prior Level of Function SCALE: Activities may be completed with or without assistive devices. 8-Lxrzrvmriq-ndcpact completes the activity by him/herself with no assistance from a helper. 5-Set-up or Clean-up Assistance-helper sets up or cleans up; patient completes activity. [place] assists only prior to or following the activity. 4-Supervision or Touching Assistance-helper provides verbal cues and/or touching/steadying and/or contact guard assistance as patient completes activity. Assistance may be provided throughout the activity or intermittently. 3-Partial/Moderate Assistance-helper does LESS THAN HALF the effort. [place] lifts, holds or supports trunk or limbs, but provides less than half the effort. 2-Substantial/Maximal Assistance-helper does MORE THAN HALF the effort. [place] lifts or holds trunk or limbs and provides more than half the effort. 0-Wawwpxgti-zjcblb does ALL the effort. Patient does none of the effort to complete the activity. Or, the assistance of 2 or more helpers is required for the patient to complete the activity. If activity was not attempted, code reason: 7-Patient Refused. 9-Not Applicable-not attempted and the patient did not perform the activity before the current illness, exacerbation or injury. 10-Not Attempted due to Environmental Limitations-(lack of equipment, weather restraints, etc.). 88-Not Attempted due to Medical Conditions or Safety Concerns. Bed Mobility: 6 Transfers (B,C,W/C): 6 Gait: 6 Stairs: 6 Indoor Mobility (Ambulation): Independent Stairs: Independent PT Evaluation-Current Subjective Patient states that she does not fell well but she will try to stand. ROM/Strength Strength Lower Extremities 3+/5 strength grossly Transfers Sit to Lying (QC): 4 Lying to Sitting/Side of Bed(Q: 4 Sit to Stand (QC): 4 Gait Does the Patient Walk?: Yes Mode of Locomotion: Walk Anticipated Mode of Locomotion: Walk Walk 10 feet (QC): 88 Walk 50 ft with 2 Turns(QC): 88 Walk 150 ft (QC): 88 Walking 10ft/uneven surface-QC: 88 Distance: patient was able to side step a few feet at EOB Gait Assistive Device: None Assessment/Needs Patient was not feeling well today and had difficulty tolerating treatment se condary to nausea. Patient has weakness in both legs and difficulty with functional mobility. The patient should be able to make functional gains as she begins to feel better. Rehab Potential: Fair PT Short Term Goals Short Term Goals Time Frame: Feb 21, 2022 Roll Left & Right: 5 Sit to lyin Lying to sitting on side of be: 5 Sit to stand: 5 Chair/bbh-fo-wcdhm transfer: 5 Toilet transfer: 5 Car transfer: 5 Walk 10 feet: 5 Walk 50 feet with two turns: 5 Walk 150 feet: 5 Walking 10ft on uneven surface: 5 1 step (curb): 5 4 steps: 5 12 steps: 5 Picking up objects: 5 Does pt use a wc or scooter: No PT [facility] Goals Netsuite Developer Goals PT [facility] Goals Time Frame: Feb 28, 2022 Roll Left & Right (QC): 6 Sit to Lying (QC): 6 Lying-Sitting on Side/Bed(QC): 6 Sit to Stand (QC): 6 Chair/Frs-md-Mhaun Xfer(QC): 6 Toilet Transfer (QC): 6 Car Transfer (QC): 6 Does the Patient Walk: Yes Walk 10 feet (QC): 6 Walk 50ft with 2 Turns (QC): 6 Walk 150 ft (QC): 6 Walking 10ft on Uneven Surface: 6 1 Step (curb) (QC): 6 4 Steps (QC): 6 12 Steps (QC): 6 Picking up an Object (QC): 6 Does the Pt use WC or Scooter?: No PT Plan Problem List Problem List: Activity Tolerance, Functional Strength, Safety, Balance, Gait, Transfer, Bed Mobility Treatment/Plan Treatment Plan: Continue Plan of Care Treatment Plan: Bed Mobility, Functional Activity April, Functional Strength, Gait, Safety, Therapeutic Exercise, Transfers Treatment Duration: Feb 28, 2022 Frequency: 6 times per week Estimated Hrs Per Day: .5 hour per day Patient and/or Family Agrees t: Yes Time/GCodes Time In: 1005 Time Out: 1015 Total Billed Treatment Time: 10 Total Billed Treatment 1, EV low complexity x 10' NELDA SALAS PT February 14, 2022 10:26
--- NOTE | 2022-02-14 10:30 | Occupational Therapy Eval ---
OT Evaluation-General/PLF Medical Diagnosis Admission Date February 13, 2022 at 16:01 Medical Diagnosis: Jejunostomy tube dislodge Onset Date: Dec 30, 2021 Therapy Diagnosis Therapy Diagnosis: Debilitation, Decreased ADL skills Height/Weight Height (Feet): 4 Height (Inches): 11.00 Weight (Pounds): 98 Weight (Ounces): 14.4 Precautions Precautions/Isolations: Fall Prevention Weight Bear Status Weight Bearing Restriction: Weight Bearing/Tolerated Referral Physician: Dr. Woodard Referral Reason: Activity Tolerance, Self Care, Evaluation/Treatment, Streng thening/ROM Medical History Pertinent Medical History: GERD, HTN Additional Medical History Asthma, depression, anxiety, hysterectomy, paraesophageal hernia repair, pneumothorax, multiple surgeries for other hernia repairs, multiple hospitalizations. Current History Pt. has had complicated medical history. Unable to gather full history from chart at this time, and pt. is unable to state full history due to current illness and inability to fully participate. Pt. has had multiple surgeries, was in [place] after her last surgery, and came back due to a tube being dislodge. Pt. currently receiving TPN via PICC line. Reviewed History: Yes Social History Current Living Status: Children (Daughter) ADL-Prior Level of Function SCALE: Activities may be completed with or without assistive devices. 7-Gepvyfpxxu-dqaoqak completes the activity by him/herself with no assistance from a helper. 5-Set-up or Clean-up Assistance-helper sets up or cleans up; patient completes activity. [place] assists only prior to or following the activity. 4-Supervision or Touching Assistance-helper provides verbal cues and/or touching/steadying and/or contact guard assistance as patient completes activity. Assistance may be provided throughout the activity or intermittently. 3-Partial/Moderate Assistance-helper does LESS THAN HALF the effort. [place] lifts, holds or supports trunk or limbs, but provides less than half the effort. 2-Substantial/Maximal Assistance-helper does MORE THAN HALF the effort. [place] lifts or holds trunk or limbs and provides more than half the effort. 0-Lzhjmxrmz-lshsfr does ALL the effort. Patient does none of the effort to complete the activity. Or, the assistance of 2 or more helpers is required for the patient to complete the activity. If activity was not attempted, code reason: 7-Patient Refused. 9-Not Applicable-not attempted and the patient did not perform the activity before the current illness, exacerbation or injury. 10-Not Attempted due to Environmental Limitations-(lack of equipment, weather restraints, etc.). 88-Not Attempted due to Medical Conditions or Safety Concerns. ADL PLOF Comments OT asks pt if she lives alone and she states that she lives with her daughter. She is able to state that she receives assist from her daughter, but does not state how much. Self Care: Unknown Functional Cognition: Unknown OT Current Status Subjective Pt. states, "I have been better" when asked how she is doing. Appearance Pt. is in bed with emesis bucket in front of her. She constantly vomits bile/sputum throughout treatment, as well as coughs. Mental Status/Objective Patient Orientation: Person, Place Attachments: Colostomy/Ileostomy, IV, Oxygen ADL-Treatment Eating (QC): 1 (PICC line for TPN) On/Off Footwear (QC): 2 (Per clinical judgement, pt. unable to reach feet currently to doff/don slipper socks.) Toileting Hygiene (QC): 1 (colostomy) Other Treatments Pt. very ill at this time. Continually vomits bile and sputum throughout treatment. Has difficulty talking without coughing. However, does agree to sit EOB. Pt. has multiple lines and tubing that has to be adjusted for. Requires min/mod assist for supine-sit with increased time needed. Once EOB, PT comes in and assists with standing pt. Pt. able to stand with min assist x 2. Due to fatigue level, amount of lines/tubes, and pt's fragile state, requires skilled assist of two practitioners. Pt. stands EOB with steadying assist approximately 2-3minutes. OT asks if she would like therapy to provide a comfortable chair for her. She indicates no quickly, and sits down. Pt. able to transfer back to bed, but requires increased time and effort. O2 sats wavered throughout treatment from 97-87%. Pt. encouraged to breathe and take her time. Pt. in bed with all needs met at end of treatment. OT let nursing know of pt's current status. Education OT Patient Education: Correct positioning, Progress toward Goal/Update tx plan, Purpose of tx/functional activities, Reviewed precautions, Rehab process, Transfer techniques Teaching Recipient: Patient Teaching Methods: Demonstration, Discussion Response to Teaching: Verbalize Understanding, Return Demonstration, Reinforcement Needed OT Short Term Goals Short Term Goals Time Frame: Feb 21, 2022 Oral hygiene: 4 Upper body dressin Lower body dressin Putting on/taking off footwear: 3 OT Long-Term Goals Long-Term Goals Time Frame: Feb 28, 2022 Oral Hygiene (QC): 6 Shower/Bathe Self (QC): 4 Upper Body Dressing (QC): 5 Lower Body Dressing (QC): 5 On/Off Footwear (QC): 6 Additional Goals: 1-Demonstrate ADL Tasks, 2-Verbalize Understanding, 3-ImproveStrength/April 1=Demonstrate adherence to instructed precautions during ADL tasks. 2=Patient will verbalize/demonstrate understanding of assistive devices/modifications for ADL. 3=Patient will improve strength/tolerance for activity to enable patient to perform ADL's. OT Education/Plan Problem List/Assessment Assessment: Decreased Activ Tolerance, Decreased UE Strength, Dependent Transfers, Impaired Bed Mobility, Impaired Funct Balance, Impaired I ADL's, Impaired Self-Care Skills Discharge Recommendations Plan/Recommendations: Continue POC Therapy Discharge Recommendati: Post Acute OT Comment Equipment needs and discharge location to be determined. Treatment Plan/Plan of Care Treatment,Training & Education: Yes Patient would benefit from OT for education, treatment and training to promote independence in ADL's, mobility, safety and/or upper extremity function for ADL's. Plan of Care: ADL Retraining, Functional Mobility, UE Funct Exercise/Act Treatment Duration: Feb 28, 2022 Frequency: 3 times per week Estimated Hrs Per Day: .25 hour per day Agreement: Yes Rehab Potential: Guarded Pt. would benefit from OT services 3-5 x per week to increase independence with ADL skills and overall strength. Time/GCodes Start Time: 09:55 Stop Time: 10:15 Total Time Billed (hr/min): 20 Billed Treatment Time 1, RENNY ENRIQUEZ OT February 14, 2022 10:30
--- NOTE | 2022-02-14 11:13 | Progress Note ---
Standard Progress Note Progress Notes/Assess & Plan Date Seen by a Provider: February 14, 2022 Time Seen by a Provider: 10:00 Progress/Assessment & Plan patient seen and evaluated. pain controlled. good urine output. dehydration improving. awake and alert. PE: chest-few scattered rhales bilateral. heart-regular, rate 100's. abd-soft, functional colostomy, previous j-tube fistula still draining, wounds healing well. extr-no leg edema, neg homans sign. skin-warm dry. A/P: severe dehyration due to loss of alimentary tract use and TPN. will need another j-tube. IV fluids and TPN for now. Focused Exam Lactate Level 02/13/22 12:10: Lactic Acid Level 1.55 TAI SANCHEZ MD February 14, 2022 11:13
[2022-02-14] MEDS: FLUCONAZOLE 100 MG/50 ML 50 ML IV SCH (17:12)
[2022-02-14] MEDS: ENOXAPARIN 40 MG/0.4 ML (LOVENOX) SYR SC SCH (20:00)
[2022-02-15] VITALS (7 sets, daily range): BP systolic 115–164; BP diastolic 71–86
[2022-02-15] MEDS: HYDROmorphone 2 MG/ML VIAL (DILAUDID) IV PRN ×9 (02:52→23:00)
[2022-02-15] MEDS: NS IV 1000 ML 1,000 ML IV SCH ×3 (03:34→22:59)
[2022-02-15] MEDS: MEROPENEM 500 MG/NS 100 ML IVPB IV SCH ×8 (05:43→22:59)
[2022-02-15] MEDS: PANTOPRAZOLE 40 MG (PROTONIX) VIAL IV SCH (05:43)
[2022-02-15] MEDS: ONDANSETRON 4 MG/2 ML (SDV) Z0FRAN IV PRN ×4 (05:43→18:00)
[2022-02-15 05:58] LABS: HEMOGLOBIN 10.5 g/dL (11.5-16.0); MEAN CORPUSCULAR HEMOGLOBIN 31 pg (25-34)
[2022-02-15 06:00] LABS: BASOPHILS % (AUTO) 0 % (0-10); EOSINOPHILS # (AUTO) 0.1 10^3/uL (0.0-0.3); EOSINOPHILS % (AUTO) 2 % (0-10); HEMATOCRIT 33 % (35-52); LYMPHOCYTES # (AUTO) 1.3 10^3/uL (1.0-4.0); LYMPHOCYTES % (AUTO) 20 % (12-44); MEAN CORPUSCULAR HGB CONC 31 g/dL (32-36); MEAN CORPUSCULAR VOLUME 99 fL (80-99); MEAN PLATELET VOLUME 10.4 fL (9.0-12.2); MONOCYTES # (AUTO) 0.4 10^3/uL (0.0-1.0); MONOCYTES % (AUTO) 6 % (0-12); NEUTROPHILS # (AUTO) 4.6 10^3/uL (1.8-7.8); NEUTROPHILS % (AUTO) 71 % (42-75); PLATELET COUNT 98 10^3/uL (130-400); WHITE BLOOD COUNT 6.4 10^3/uL (4.3-11.0)
--- NOTE | 2022-02-15 06:14 | Progress Note - Hospitalist ---
Subjective HPI/CC On Admission Date Seen by Provider: February 15, 2022 Time Seen by Provider: 10:00 CC: Weakness HPI: This is a 61yoWF clinic patient of [facility] who is known to me from prior hospital stays who has a h/o diverting colostomy and esophageal resection who just DC'ed from [place] 9 days ago after 1 month of hospital stay for respiratory failure and multi-system failure. She was found to have early UTI and early PNA requiring admit for IV abx since there is no access for PO due to removal of J tube. She remains on TPN. She coughs constantly but no cough suppressants can be given due to NPO status and no esophagus. Dr Ley consulted and attempted to replace J tube but the stoma was stenosed and unable to place it. Patient appears to be very end stage and a hospice candidate. Patient will be moved to the 4th floor today. Enrike and Vanc maintained. Subjective/Events-last exam Pt coughing constantly TPN maintained 200 mg of Diflucan ordered for yeast bacteremia but globrata noted on ID final this evening so changed to Amphotericin B and moved to [facility] Dr. Bragg consulted but cannot replace J-tube due to poor candidate high risk for perforation Dilaudid and Zofran given for pain and nausea Unsure if maintaining clinical status is even realistic and she appears to meet criteria for hospice High risk for complete decompensation given fungemia now in such a debilitated state with aspiration status etc Review of Systems General: Fatigue, Malaise Pulmonary: Dyspnea, Cough Focused Exam Lactate Level 02/13/22 12:10: Lactic Acid Level 1.55 Objective Exam Vital Signs Vital Signs Date Time Temp Pulse Resp B/P (MAP) Pulse Ox O2 Delivery O2 Flow Rate FiO2 02/15/22 20:12 39.4 150 26 164/82 (109) 95 Nasal Cannula 1.00 02/13/22 20:40 21 Capillary Refill : Less Than 3 Seconds General Appearance: Anxious, Chronically ill, Mild Distress Respiratory: Decreased Breath Sounds Cardiovascular: Tachycardia Neurologic/Psychiatric: Alert, Oriented x3 Results/Procedures Lab Laboratory Tests 02/15/22 05:34 Patient resulted labs reviewed. Assessment/Plan Assessment and Plan Assess & Plan/Chief Complaint Assessment: Yamini globrata fungemia placed on Diflucan 200mg IV today but changed to Amphotericin B this evening when fever noted and tachycardia and moved to [facility] Presumed sepsis UTI on Vanc and Enrike PNA likely aspiration type Chronic esophagus resection Diverting colostomy by Dr Bragg Cough due to aspiration? J-tube removal needs replaced? Can replace due to unstable and poor wound healing high risk for perforation TPN maintained Severe debility Hypokalemia Anemia of chronic disease Plan: IVF IV abx Dr Ley appreciated TPN 02/15/22: Amphotericin B Move to [facility] IVF bolus Check labs Prognosis is becoming more and more poor given the fact unable to even place J- tube due to debilitated state May need PICC replaced tomorrow BISHOP VAN DO February 15, 2022 06:14
[2022-02-15 06:20] LABS: ALBUMIN 2.6 GM/DL (3.2-4.5)
[2022-02-15 06:21] LABS: POTASSIUM 3.5 MMOL/L (3.6-5.0)
[2022-02-15 06:22] LABS: CALCIUM 8.2 MG/DL (8.5-10.1)
[2022-02-15 06:23] LABS: TOTAL PROTEIN 5.9 GM/DL (6.4-8.2)
[2022-02-15 06:25] LABS: BILIRUBIN,TOTAL 0.9 MG/DL (0.1-1.0)
[2022-02-15 06:27] LABS: CREATININE SERUM 0.67 MG/DL (0.60-1.30)
[2022-02-15] MEDS ORDERED: TROUGH ORDER-PHARMACY XX NR (08:00)
[2022-02-15] MEDS: FLUCONAZOLE 100 MG/50 ML 50 ML IV SCH (09:04)
--- NOTE | 2022-02-15 09:14 | Occ Therapy Progress Note ---
Therapy Progress Note BAKER entered pt's room and introduced self. Pt just looked at BAKER. Pt would only slightly nod head to affirm/negate questions. Pt confirmed that she had been vomiting/nauseous this morning and that she did not want to participate in therapy at this time. Will check on pt at next available time. 1-refusal [id number] ULICES CORREIA February 15, 2022 09:14
--- NOTE | 2022-02-15 09:27 | Physical Therapy Progress Note ---
Therapy Progress Note Patient declined PT due to nausea and vomiting. RN confirms. PT will attempt later today or tomorrow a.m. 1 ref CONNOR HARPER PT February 15, 2022 09:27
[2022-02-15] MEDS ORDERED: FLUCONAZOLE 100 MG/50 ML IVPB IV NR (11:00)
--- NOTE | 2022-02-15 11:21 | Occ Therapy Progress Note ---
Therapy Progress Note Pt refused to participate in OT session due to illness and nausea. Will attempt tomorrow. ULICES CORREIA February 15, 2022 11:21
[2022-02-15] MEDS: VANCOMYCIN 750 MG/NS 250 ML IVPB IV SCH ×4 (11:56→21:51)
[2022-02-15] MEDS ORDERED: NS IV 1000 ML 1,000 ML IV SCH (20:30)
[2022-02-15] MEDS: ENOXAPARIN 40 MG/0.4 ML (LOVENOX) SYR SC SCH (20:31)
[2022-02-15] MEDS ORDERED: ACETAMINOPHEN 325 MG SUPP (TYLENOL) ONE (20:43)
[2022-02-15] MEDS ORDERED: ACETAMINOPHEN 650 MG SUPP (TYLENOL) ONE (20:46)
[2022-02-15] MEDS: ACETAMINOPHEN 650 MG SUPP (TYLENOL) PR PRN (20:48)
[2022-02-15 20:57] LABS: BASOPHILS % (AUTO) 0 % (0-10)
[2022-02-15 20:59] LABS: EOSINOPHILS % (AUTO) 0 % (0-10); HEMATOCRIT 34 % (35-52); HEMOGLOBIN 10.8 g/dL (11.5-16.0); LYMPHOCYTES # (AUTO) 0.5 10^3/uL (1.0-4.0); LYMPHOCYTES % (AUTO) 10 % (12-44); MEAN CORPUSCULAR HEMOGLOBIN 32 pg (25-34); MEAN CORPUSCULAR HGB CONC 32 g/dL (32-36); MEAN CORPUSCULAR VOLUME 99 fL (80-99); MEAN PLATELET VOLUME 10.4 fL (9.0-12.2); MONOCYTES # (AUTO) 0.2 10^3/uL (0.0-1.0); MONOCYTES % (AUTO) 3 % (0-12); NEUTROPHILS # (AUTO) 4.4 10^3/uL (1.8-7.8); NEUTROPHILS % (AUTO) 84 % (42-75); PLATELET COUNT 82 10^3/uL (130-400); WHITE BLOOD COUNT 5.2 10^3/uL (4.3-11.0)
[2022-02-15 21:20] LABS: ALBUMIN 2.6 GM/DL (3.2-4.5); POTASSIUM 3.1 MMOL/L (3.6-5.0)
[2022-02-15 21:22] LABS: CALCIUM 7.9 MG/DL (8.5-10.1)
[2022-02-15 21:25] LABS: BILIRUBIN,TOTAL 1.2 MG/DL (0.1-1.0)
[2022-02-15 21:27] LABS: CREATININE SERUM 0.71 MG/DL (0.60-1.30)
--- NOTE | 2022-02-15 21:28 | Progress Note - Surgery ---
Subjective Time Seen by a Provider: 17:22 Subjective/Events-last exam Pt seen and examined, no new complaints. Pt has a depressed affect. Does have stomach pain at site of J-tube opening. Review of Systems General: Fatigue, Malaise Pulmonary: No Dyspnea, No Cough Cardiovascular: No: Chest Pain, Palpitations Gastrointestinal: Abdominal Pain; No: Nausea, Vomiting Focused Exam Lactate Level 02/13/22 12:10: Lactic Acid Level 1.55 02/15/22 20:50: Lactic Acid Level Laboratory Tests Test 02/15/22 20:50 Objective Exam Vital Signs Date Time Temp Pulse Resp B/P (MAP) Pulse Ox O2 Delivery O2 Flow Rate FiO2 02/15/22 20:48 39.3 02/15/22 20:27 96 Nasal Cannula 1.00 02/15/22 20:12 39.4 150 26 164/82 (109) 95 Nasal Cannula 1.00 02/15/22 15:47 38.3 118 20 143/83 (103) 97 Nasal Cannula 1.00 02/15/22 11:39 36.2 97 22 140/86 (104) 98 Nasal Cannula 1.00 02/15/22 08:00 Nasal Cannula 1.00 02/15/22 07:30 36.7 100 18 123/81 (95) 98 Nasal Cannula 1.00 02/15/22 06:52 96 Room Air 02/15/22 04:06 36.9 83 18 115/71 (86) 98 Nasal Cannula 2.00 02/15/22 00:18 36.9 96 18 122/80 (94) 96 Nasal Cannula 2.00 I & O 02/15/22 07:00 Intake Total 1300 ml Output Total 830 ml Balance 470 ml Capillary Refill : Less Than 3 Seconds General Appearance: Anxious, Chronically ill, Mild Distress HEENT: PERRL/EOMI, Other (throat stoma) Neck: Other (Anterior mucus fistula with clear sputum around insertion site. No signs of infection.) Respiratory: Decreased Breath Sounds Cardiovascular: Tachycardia Gastrointestinal: normal bowel sounds, soft, tenderness (LUQ), other (Left colostomy functioning. LUQ feeding tube insertion site with erythema, excoriation and looks like yeast infection) Extremity: Normal Inspection, Normal Range of Motion Neurologic/Psychiatric: Alert, Oriented x3 Skin: Normal Color, Warm/Dry Results Lab Laboratory Tests 02/15/22 05:34: White Blood Count 6.4, Red Blood Count 3.38L, Hemoglobin 10.5L, Hematocrit 33L, Mean Corpuscular Volume 99, Mean Corpuscular Hemoglobin 31, Mean Corpuscular Hemoglobin Concent 31L, Red Cell Distribution Width 12.7, Platelet Count 98L, Mean Platelet Volume 10.4, Immature Granulocyte % (Auto) 1, Neutrophils (%) (Auto) 71, Lymphocytes (%) (Auto) 20, Monocytes (%) (Auto) 6, Eosinophils (%) (Auto) 2, Basophils (%) (Auto) 0, Neutrophils # (Auto) 4.6, Lymphocytes # (Auto) 1.3, Monocytes # (Auto) 0.4, Eosinophils # (Auto) 0.1, Basophils # (Auto) 0.0, Immature Granulocyte # (Auto) 0.1, Percent Immature Platelet Fraction 2.4, Sodium Level 144, Potassium Level 3.5L, Chloride Level 117H, Carbon Dioxide Level 17L, Anion Gap 10, Blood Urea Nitrogen 24H, Creatinine 0.67, Estimat Glomerular Filtration Rate 101, BUN/Creatinine Ratio 36, Glucose Level 136H, Calcium Level 8.2L, Corrected Calcium 9.3, Total Bilirubin 0.9, Aspartate Amino Transf (AST/SGOT) 43H, Alanine Aminotransferase (ALT/SGPT) 100H, Alkaline Phosphatase 163H, Total Protein 5.9L, Albumin 2.6L 02/15/22 09:25: Vancomycin Level Trough 10.7 02/15/22 20:50: White Blood Count 5.2, Red Blood Count 3.43L, Hemoglobin 10.8L, Hematocrit 34L, Mean Corpuscular Volume 99, Mean Corpuscular Hemoglobin 32, Mean Corpuscular Hemoglobin Concent 32, Red Cell Distribution Width 12.8, Platelet Count 82L, Mean Platelet Volume 10.4, Immature Granulocyte % (Auto) 2, Neutrophils (%) (Auto) 84H, Lymphocytes (%) (Auto) 10L, Monocytes (%) (Auto) 3, Eosinophils (%) (Auto) 0, Basophils (%) (Auto) 0, Neutrophils # (Auto) 4.4, Lymphocytes # (Auto) 0.5L, Monocytes # (Auto) 0.2, Eosinophils # (Auto) 0.0, Basophils # (Auto) 0.0, Immature Granulocyte # (Auto) 0.1, Percent Immature Platelet Fraction 2.3, Sodium Level 143, Potassium Level 3.1L, Calcium Level 7.9L, Corrected Calcium 9.0, Albumin 2.6L Microbiology 02/13/22 Urine Culture - Final, Complete Growth Consistent 02/13/22 Blood Culture - Preliminary, Resulted Yamini glabrata Assessment/Plan Assessment/Plan Assessment/Plan Dehydration secondary to a loss of enteral access for alimentation. Yeast infection Malnutrition Continue TPN, will write for Nystatin powder to place on abdomen. Pt needs to get back to her surgeon at for definitive treatment. TODD CR DO February 15, 2022 21:28
[2022-02-15] MEDS ORDERED: KETOROLAC 15 MG/ML VIAL ONE (21:43)
[2022-02-15] MEDS: KETOROLAC 15 MG/ML VIAL IVP PRN (21:56)
[2022-02-15] MEDS ORDERED: DEXTROSE IV SCH (22:00)
[2022-02-15] MEDS ORDERED: AMPHOTERICIN B LIPOSOME IV SCH (22:00)
[2022-02-16] VITALS (7 sets, daily range): BP systolic 114–150; BP diastolic 65–85
[2022-02-16] MEDS: HYDROmorphone 2 MG/ML VIAL (DILAUDID) IV PRN ×7 (02:26→20:29)
[2022-02-16] MEDS: ONDANSETRON 4 MG/2 ML (SDV) Z0FRAN IV PRN ×2 (02:26→17:42)
[2022-02-16 05:12] LABS: BASOPHILS % (AUTO) 0 % (0-10); EOSINOPHILS % (AUTO) 0 % (0-10); HEMATOCRIT 34 % (35-52); HEMOGLOBIN 10.4 g/dL (11.5-16.0); LYMPHOCYTES # (AUTO) 1.1 10^3/uL (1.0-4.0); LYMPHOCYTES % (AUTO) 18 % (12-44); MEAN CORPUSCULAR HEMOGLOBIN 30 pg (25-34); MEAN CORPUSCULAR HGB CONC 31 g/dL (32-36); MEAN CORPUSCULAR VOLUME 98 fL (80-99); MEAN PLATELET VOLUME 10.7 fL (9.0-12.2); MONOCYTES # (AUTO) 0.2 10^3/uL (0.0-1.0); MONOCYTES % (AUTO) 3 % (0-12); NEUTROPHILS # (AUTO) 4.9 10^3/uL (1.8-7.8); NEUTROPHILS % (AUTO) 77 % (42-75); PLATELET COUNT 76 10^3/uL (130-400); WHITE BLOOD COUNT 6.4 10^3/uL (4.3-11.0)
[2022-02-16] MEDS: KETOROLAC 15 MG/ML VIAL IVP PRN ×3 (05:12→19:46)
[2022-02-16] MEDS: MEROPENEM 500 MG/NS 100 ML IVPB IV SCH ×8 (05:16→23:39)
[2022-02-16 05:23] LABS: ALBUMIN 2.4 GM/DL (3.2-4.5)
[2022-02-16 05:24] LABS: POTASSIUM 2.7 MMOL/L (3.6-5.0)
[2022-02-16 05:25] LABS: CALCIUM 7.5 MG/DL (8.5-10.1)
[2022-02-16 05:26] LABS: TOTAL PROTEIN 5.6 GM/DL (6.4-8.2)
[2022-02-16 05:30] LABS: CREATININE SERUM 0.63 MG/DL (0.60-1.30)
[2022-02-16] MEDS ORDERED: MAGNESIUM 1 GM/100 ML IVPB 100 ML IV ONE (05:45)
--- NOTE | 2022-02-16 06:30 | Progress Note - Hospitalist ---
Subjective HPI/CC On Admission Date Seen by Provider: Feb 16, 2022 Time Seen by Provider: 10:00 CC: Weakness HPI: This is a 61yoWF clinic patient of [facility] who is known to me from prior hospital stays who has a h/o diverting colostomy and esophageal resection who just DC'ed from [place] 9 days ago after 1 month of hospital stay for respiratory failure and multi-system failure. She was found to have early UTI and early PNA requiring admit for IV abx since there is no access for PO due to removal of J tube. She remains on TPN. She coughs constantly but no cough suppressants can be given due to NPO status and no esophagus. Dr Ley consulted and attempted to replace J tube but the stoma was stenosed and unable to place it. Patient appears to be very end stage and a hospice candidate. Patient will be moved to the 4th floor today. Enrike and Vanc maintained. Subjective/Events-last exam Pt maintained on Amphotericin B for fungemia I had a long discussion on the phone with her daughter in front of the pt and my nurse and discussed goals of care and expectations. Everyone agreed after a 10 minute conversation that this is not fixable and there isn't a resolution to her issues. We will make her DNR and they are interested in hospice and will discharge tomorrow. Transferring to 4th floor Review of Systems General: Fatigue, Malaise Pulmonary: Dyspnea, Cough Focused Exam Lactate Level 02/15/22 20:50: Lactic Acid Level 1.48 Objective Exam Vital Signs Vital Signs Date Time Temp Pulse Resp B/P (MAP) Pulse Ox O2 Delivery O2 Flow Rate FiO2 02/17/22 03:07 36.4 120 20 125/70 (88) 95 Nasal Cannula 2.00 02/13/22 20:40 21 Capillary Refill : Less Than 3 Seconds General Appearance: No Apparent Distress, Chronically ill Neurologic/Psychiatric: Alert, Oriented x3 Results/Procedures Lab Patient resulted labs reviewed. Assessment/Plan Assessment and Plan Assess & Plan/Chief Complaint Assessment: Yamini globrata fungemia placed on Diflucan 200mg IV today but changed to Amphotericin B this evening when fever noted and tachycardia and moved to [facility] but now DNR and DC on Hospice tomorrow and moving to 4th floor Presumed sepsis UTI on Vanc and Enrike PNA likely aspiration type Chronic esophagus resection Diverting colostomy by Dr Bragg Cough due to aspiration? J-tube removal needs replaced? Can replace due to unstable and poor wound healing high risk for perforation TPN maintained Severe debility Hypokalemia Anemia of chronic disease Plan: IVF IV abx Dr Ley appreciated TPN 02/15/22: Amphotericin B Move to [facility] IVF bolus Check labs Prognosis is becoming more and more poor given the fact unable to even place J- tube due to debilitated state May need PICC replaced tomorrow 02/16/22: DC tomorrow on Hospice Move to [facility] DNR BISHOP VAN DO Feb 16, 2022 06:30
--- NOTE | 2022-02-16 07:36 | Occ Therapy Progress Note ---
Therapy Progress Note Due to decline in medical status, OT services will be discharged at this time. Will need new orders. ULICES CORREIA Feb 16, 2022 07:36
[2022-02-16] MEDS: PANTOPRAZOLE 40 MG (PROTONIX) VIAL IV SCH (07:53)
[2022-02-16] MEDS: NS IV 1000 ML 1,000 ML IV SCH ×2 (08:42→23:39)
[2022-02-16] MEDS ORDERED: FLUCONAZOLE 200 MG/NACL 100 ML (PRE-MIX) IV SCH (09:00)
[2022-02-16] MEDS: [UNRECOGNIZED DRUG - REMARK] IV SCH (09:50)
[2022-02-16] MEDS: DEXTROSE IV SCH (09:51)
[2022-02-16] MEDS: AMPHOTERICIN B LIPOSOME IV SCH (09:51)
[2022-02-16] MEDS: POTASSIUM CL 10MEQ/50ML IVPB 50 ML IV SCH ×7 (10:00→16:02)
[2022-02-16] MEDS: MICONAZOLE 2% POWDER (DESENEX AF) 90 GM TOP SCH (10:01)
[2022-02-16] MEDS: VANCOMYCIN 750 MG/NS 250 ML IVPB IV SCH ×2 (10:20)
--- NOTE | 2022-02-16 11:50 | Physical Therapy Daily Note ---
PT Daily Note-Current Subjective Unable to see pt. this date. Made 4 attempts to see or check on pt. status, pt. getting PICC or with wound care, Nursing eventually contacted and states pt could not tolerate Rx today and is in declined status. Will check status tomorrow Transfers SCALE: Activities may be completed with or without assistive devices. 3-Pnnemwnchb-hqizprm completes the activity by him/herself with no assistance from a helper. 5-Set-up or Clean-up Assistance-helper sets up or cleans up; patient completes activity. [place] assists only prior to or following the activity. 4-Supervision or Touching Assistance-helper provides verbal cues and/or touching/steadying and/or contact guard assistance as patient completes activity. Assistance may be provided throughout the activity or intermittently. 3-Partial/Moderate Assistance-helper does LESS THAN HALF the effort. [place] lifts, holds or supports trunk or limbs, but provides less than half the effort. 2-Substantial/Maximal Assistance-helper does MORE THAN HALF the effort. [place] lifts or holds trunk or limbs and provides more than half the effort. 2-Qmqxrhcjp-uqfoeh does ALL the effort. Patient does none of the effort to compl ete the activity. Or, the assistance of 2 or more helpers is required for the patient to complete the activity. If activity was not attempted, code reason: 7-Patient Refused. 9-Not Applicable-not attempted and the patient did not perform the activity before the current illness, exacerbation or injury. 10-Not Attempted due to Environmental Limitations-(lack of equipment, weather restraints, etc.). 88-Not Attempted due to Medical Conditions or Safety Concerns. Weight Bearing Full Weight Bearing Full Weight Bearing Assessment Current Status: No Treatment/Other Tests declined medical status PT Short Term Goals Short Term Goals Time Frame: Feb 21, 2022 Roll Left & Right: 5 Sit to lyin Lying to sitting on side of be: 5 Sit to stand: 5 Chair/afe-nn-jyvvf transfer: 5 Toilet transfer: 5 Car transfer: 5 Walk 10 feet: 5 Walk 50 feet with two turns: 5 Walk 150 feet: 5 Walking 10ft on uneven surface: 5 1 step (curb): 5 4 steps: 5 12 steps: 5 Picking up objects: 5 Does pt use a wc or scooter: No PT Pmo Project Manager Goals Senior Living Goals PT Senior Living Goals Time Frame: Feb 28, 2022 Roll Left & Right (QC): 6 Sit to Lying (QC): 6 Lying-Sitting on Side/Bed(QC): 6 Sit to Stand (QC): 6 Chair/Gzi-nr-Elejb Xfer(QC): 6 Toilet Transfer (QC): 6 Car Transfer (QC): 6 Does the Patient Walk: Yes Walk 10 feet (QC): 6 Walk 50ft with 2 Turns (QC): 6 Walk 150 ft (QC): 6 Walking 10ft on Uneven Surface: 6 1 Step (curb) (QC): 6 4 Steps (QC): 6 12 Steps (QC): 6 Picking up an Object (QC): 6 Does the Pt use WC or Scooter?: No PT Plan Treatment/Plan Treatment Plan: Continue Plan of Care (as tolerated) Treatment Plan: Bed Mobility, Functional Activity April, Functional Strength, Gait, Safety, Therapeutic Exercise, Transfers Treatment Duration: Feb 28, 2022 Frequency: 6 times per week Estimated Hrs Per Day: .5 hour per day Patient and/or Family Agrees t: Yes Time/GCodes Time In: 1148 Time Out: 1149 Total Billed Treatment Time: 0 Total Billed Treatment 1,no Rx, no Chg HEATH HERNANDEZ [employer] SUPERVISOR Feb 16, 2022 11:50
--- NOTE | 2022-02-16 15:14 | Wound Care Assessment ---
Wound Care Assessment Date Seen by Provider: Feb 16, 2022 Time Seen by Provider: 11:00 Chief Complaint Draining wound from past J tube site HPI This pleasant 61 year old female has an extremely complex medical history. She has both a diverting colostomy and had esophageal resection with J tube placement in past. Her J tube was recently dislodged and was subsequently removed. Surgery was unable to replace at bedside due to stenosis of J site. She remains on TPN as a result. She was most recently admitted with dehydration, aspiration pneumonia and sepsis. Yamini in blood culture. She is on broad spectrum antibiotics and amphoteracin B currently. She also has significant hypokalemia, protein energy malnutrition and thrombocytopenia with anemia. I was consulted as her J site continues to drain with bilious fluid. She has significant erythema and yeast/fungal dermatitis in periwound. Smoking Status: Former Smoker Exam Vital Signs Date Time Temp Pulse Resp B/P (MAP) Pulse Ox O2 Delivery O2 Flow Rate FiO2 02/16/22 14:58 36.5 107 98 02/16/22 12:00 20 150/85 (106) Nasal Cannula 1.00 02/13/22 20:40 21 Capillary Refill : Less Than 3 Seconds General Appearance: WD/WN, no apparent distress Cardiovascular: no edema Respiratory: no respiratory distress, no accessory muscle use Extremities: no pedal edema Skin: warm/dry, rash Skin Character: erythema (around J tube site) Erythema surrounding past J site. Bilious type fluid continuing to drain Results Laboratory Tests 02/15/22 20:50: White Blood Count 5.2, Red Blood Count 3.43L, Hemoglobin 10.8L, Hematocrit 34L, Mean Corpuscular Volume 99, Mean Corpuscular Hemoglobin 32, Mean Corpuscular Hemoglobin Concent 32, Red Cell Distribution Width 12.8, Platelet Count 82L, Mean Platelet Volume 10.4, Immature Granulocyte % (Auto) 2, Neutrophils (%) (Auto) 84H, Lymphocytes (%) (Auto) 10L, Monocytes (%) (Auto) 3, Eosinophils (%) (Auto) 0, Basophils (%) (Auto) 0, Neutrophils # (Auto) 4.4, Lymphocytes # (Auto) 0.5L, Monocytes # (Auto) 0.2, Eosinophils # (Auto) 0.0, Basophils # (Auto) 0.0, Immature Granulocyte # (Auto) 0.1, Percent Immature Platelet Fraction 2.3, Sodium Level 143, Potassium Level 3.1L, Chloride Level 115H, Carbon Dioxide Level 17L, Anion Gap 11, Blood Urea Nitrogen 16, Creatinine 0.71, Estimat Glomerular Filtration Rate 98, BUN/Creatinine Ratio 23, Glucose Level 155H, Lactic Acid Level 1.48, Calcium Level 7.9L, Corrected Calcium 9.0, Total Bilirubin 1.2H, Aspartate Amino Transf (AST/SGOT) 54H, Alanine Aminotransferase (ALT/SGPT) 112H, Alkaline Phosphatase 180H, Total Protein 6.0L, Albumin 2.6L, Procalcitonin 0.36H 02/16/22 04:45: White Blood Count 6.4, Red Blood Count 3.43L, Hemoglobin 10.4L, Hematocrit 34L, Mean Corpuscular Volume 98, Mean Corpuscular Hemoglobin 30, Mean Corpuscular He moglobin Concent 31L, Red Cell Distribution Width 12.6, Platelet Count 76L, Mean Platelet Volume 10.7, Immature Granulocyte % (Auto) 1, Neutrophils (%) (Auto) 77H, Lymphocytes (%) (Auto) 18, Monocytes (%) (Auto) 3, Eosinophils (%) (Auto) 0, Basophils (%) (Auto) 0, Neutrophils # (Auto) 4.9, Lymphocytes # (Auto) 1.1, Monocytes # (Auto) 0.2, Eosinophils # (Auto) 0.0, Basophils # (Auto) 0.0, Immature Granulocyte # (Auto) 0.1, Sodium Level 143, Potassium Level 2.7L, Chloride Level 116H, Carbon Dioxide Level 16L, Anion Gap 11, Blood Urea Nitrogen 16, Creatinine 0.63, Estimat Glomerular Filtration Rate 102, BUN/Creatinine Ratio 25, Glucose Level 147H, Calcium Level 7.5L, Corrected Calcium 8.8, Total Bilirubin 1.0, Aspartate Amino Transf (AST/SGOT) 42H, Alanine Aminotransferase (ALT/SGPT) 99H, Alkaline Phosphatase 160H, Total Protein 5.6L, Albumin 2.4L, Magnesium Level 1.4L Microbiology 02/13/22 Urine Culture - Final, Complete Growth Consistent 02/13/22 Blood Culture - Preliminary, Resulted Yamini glabrata Assessment/Plan/Dx Assessment: 1. Draining from past J tube site with associated fungal/yeast dermatitis in periwound 2. Candidemia 3. Aspiration pneumonia 4. PEM and inability to use gut to feed currently Plan: 1. Cleanse with saline or wound cleanser. Miconazole and stoma powder to periwound. Cover with ostomy disc and bag. Change prn. 2. Agree with antifungal/antibiotic treatment. Defer to primary team 3. Patient will either require transfer to address nutrition status or change to hospice care. Defer to surgical/primary team. Thank you for this consult. Do not hesitate to call with concerns/questions. ANURADHA CROWE MD Feb 16, 2022 15:14
[2022-02-16] MEDS ORDERED: fentaNYL PATCH 75 MCG (DURAGESIC) TD SCH (15:45)
[2022-02-16] MEDS: [UNRECOGNIZED DRUG - SUPPLY] MC SCH (17:08)
[2022-02-16] MEDS: ACETAMINOPHEN 650 MG SUPP (TYLENOL) PR PRN (19:46)
[2022-02-16] MEDS: ENOXAPARIN 40 MG/0.4 ML (LOVENOX) SYR SC SCH (20:28)
[2022-02-16] MEDS: LORazepam INJ 2 MG/ML (ATIVAN) VIAL IVP PRN (20:29)
[2022-02-17] MEDS: MICONAZOLE 2% POWDER (DESENEX AF) 90 GM TOP SCH ×3 (02:24→19:46)
[2022-02-17] MEDS: HYDROmorphone 2 MG/ML VIAL (DILAUDID) IV PRN ×9 (03:01→23:21)
[2022-02-17 03:07] VITALS: BP 125/70
[2022-02-17] MEDS: MEROPENEM 500 MG/NS 100 ML IVPB IV SCH ×8 (05:46→23:16)
[2022-02-17] MEDS: PANTOPRAZOLE 40 MG (PROTONIX) VIAL IV SCH (05:46)
--- NOTE | 2022-02-17 07:22 | Physical Therapy Progress Note ---
Therapy Progress Note Patient transferred up to cardiac step down then back to 4th floor. With this, PT requires new orders to resume therapy. CONNOR HARPER PT Feb 17, 2022 07:22
[2022-02-17 08:07] VITALS: BP 128/75
[2022-02-17] MEDS: [UNRECOGNIZED DRUG - REMARK] IV SCH (10:28)
[2022-02-17] MEDS: AMPHOTERICIN B LIPOSOME IV SCH (10:28)
[2022-02-17] MEDS: DEXTROSE IV SCH (10:28)
[2022-02-17] MEDS: NS IV 1000 ML 1,000 ML IV SCH ×2 (10:30→21:07)
--- NOTE | 2022-02-17 11:23 | Progress Note - Hospitalist ---
Subjective HPI/CC On Admission Date Seen by Provider: Feb 17, 2022 Time Seen by Provider: 11:20 CC: Weakness HPI: This is a 61yoWF clinic patient of [facility] who is known to me from prior hospital stays who has a h/o diverting colostomy and esophageal resection who just DC'ed from [place] 9 days ago after 1 month of hospital stay for respiratory failure and multi-system failure. She was found to have early UTI and early PNA requiring admit for IV abx since there is no access for PO due to removal of J tube. She remains on TPN. She coughs constantly but no cough suppressants can be given due to NPO status and no esophagus. Dr Ley consulted and attempted to replace J tube but the stoma was stenosed and unable to place it. Patient appears to be very end stage and a hospice candidate. Patient will be moved to the 4th floor today. Enrike and Vanc maintained. Subjective/Events-last exam Pt had an uneventful hospital course for 5 days after she was admitted for chronic abdominal pain and UTI. Pt was placed on broad spectrum antibiotics, she declined. Blood cultures ultimately grew out yamini glabrata. Amphotericin B initiated. Long discussion ensued. Obtained a DNR and hospice at discharge. Pt was deemed stable but ultimately a poor prognosis long-term. Review of Systems General: Fatigue, Malaise Focused Exam Lactate Level 02/15/22 20:50: Lactic Acid Level 1.48 Objective Exam Vital Signs Vital Signs Date Time Temp Pulse Resp B/P (MAP) Pulse Ox O2 Delivery O2 Flow Rate FiO2 02/18/22 04:50 37.7 116 20 128/82 (97) 97 Nasal Cannula 2.00 02/13/22 20:40 21 Capillary Refill : Less Than 3 Seconds General Appearance: No Apparent Distress, WD/WN, Chronically ill Results/Procedures Lab Patient resulted labs reviewed. Assessment/Plan Assessment and Plan Assess & Plan/Chief Complaint Assessment: Yamini globrata fungemia placed on Diflucan 200mg IV but changed to Amphotericin B this evening when fever noted and tachycardia and moved to [facility] but now DNR and DC on Hospice tomorrow and moving to 4th floor Presumed sepsis UTI on Vanc and Enrike PNA likely aspiration type Chronic esophagus resection Diverting colostomy by Dr Bragg Cough due to aspiration? J-tube removal needs replaced? Can replace due to unstable and poor wound healing high risk for perforation TPN maintained Severe debility Hypokalemia Anemia of chronic disease Plan: IVF IV abx Dr Ley appreciated TPN 02/15/22: Amphotericin B Move to [facility] IVF bolus Check labs Prognosis is becoming more and more poor given the fact unable to even place J- tube due to debilitated state May need PICC replaced tomorrow 02/16/22: DC tomorrow on Hospice Move to 4th DNR 02/17/2022: Supportive care BISHOP VAN DO Feb 17, 2022 11:23
[2022-02-17 11:57] VITALS: BP 154/73
[2022-02-17] MEDS ORDERED: FENT1PAT10 TD (12:19)
--- NOTE | 2022-02-17 12:20 | Discharge Summary ---
Discharge Summary Hospital Course Hospital Course Date of Admission: February 13, 2022 at 16:01 Admission Diagnosis : Family Physician/Provider: Jos Snow MD Date of Discharge: 02/17/22 Discharge Diagnosis: [ ] Hospital Course: [ ] Labs and Pending Lab Test: Microbiology 02/13/22 Urine Culture - Final, Complete Growth Consistent 02/13/22 Blood Culture - Final, Complete Yamini glabrata Home Meds Active Ondansetron Odt (Ondansetron) 4 Mg Tab.rapdis 4 Mg PO Q6H PRN Fentanyl Patch 50 MCG (Fentanyl) 50 Mcg/Hour Patch.td72 50 Mcg TD Q72H 7 Days Enoxaparin Sodium 40 Mg/0.4 Ml Syringe 40 Mg SC Q24H 7 Days Zosyn 4.5 gm/100 ml Galaxy Bag (Ahegrpduickd-Pltn-Tbskulsh,Iso) 4.5 Gram/100 Ml Froz.piggy 4.5 Gm IV Q8H 3 Days Reported Protonix (Pantoprazole Sodium) 40 Mg Granpkt.dr 40 Mg JT HS Benadryl Allergy (Diphenhydramine HCl) 25 Mg Tablet 25 Mg JT Q6H Ferrous Sulfate 220 Mg/5 Ml Elixir 5 Ml JT TID Morphine Conc. 20mg/ml (Morphine Sulfate) 100 Mg/5 Ml Solution 0.5-1 Ml JT Q4H PRN Ventolin Hfa (Albuterol Sulfate) 18 Gm Hfa.aer.ad 2 Puff INH Q4H PRN Albuterol Sulfate 2.5 Mg/3 Ml Vial.neb 3 Ml INH Q4H PRN Oxycodone HCl 10 Mg Tablet 10 Mg JT Q4H PRN Promethazine HCl 12.5 Mg Tablet 12.5 Mg JT Q6H Ativan (Lorazepam) 1 Mg Tablet 1 Mg JT Q6H PRN Ropinirole HCl 0.25 Mg Tablet 0.25 Mg JT HS Sertraline HCl 50 Mg Tablet 50 Mg JT DAILY Reglan (Metoclopramide HCl) 10 Mg Tablet 10 Mg JT Q6H Discharge Physical Examination Vital Signs Vital Signs Date Time Temp Pulse Resp B/P (MAP) Pulse Ox O2 Delivery O2 Flow Rate FiO2 02/17/22 11:57 37.3 120 19 154/73 (100) 97 Nasal Cannula 2.00 02/13/22 20:40 21 Allergies: Coded Allergies: codeine (Unverified Adverse Reaction, Unknown, 09/03/18) severe stomach pain Discharge Summary Date of Admission February 13, 2022 at 16:01 Date of Discharge Discharge Date: Feb 17, 2022 Admission Diagnosis Assessment: UTI PNA Chronic esophagus resection Diverting colostomy by Dr Bragg Cough due to aspiration? J-tube removal needs replaced TPN maintained Severe debility Plan: IVF IV abx Dr Ley appreciated TPN Discharge Diagnosis Assessment: Yamini globrata fungemia placed on Diflucan 200mg IV today but changed to Amphotericin B this evening when fever noted and tachycardia and moved to [facility] but now DNR and DC on Hospice tomorrow and moving to 4th floor Presumed sepsis UTI on Vanc and Enrike PNA likely aspiration type Chronic esophagus resection Diverting colostomy by Dr Bragg Cough due to aspiration? J-tube removal needs replaced? Can replace due to unstable and poor wound heali ng high risk for perforation TPN maintained Severe debility Hypokalemia Anemia of chronic disease Plan: IVF IV abx Dr Ley appreciated TPN 02/15/22: Amphotericin B Move to [facility] IVF bolus Check labs Prognosis is becoming more and more poor given the fact unable to even place J- tube due to debilitated state May need PICC replaced tomorrow 02/16/22: DC tomorrow on Hospice Move to [facility] DNR BISHOP VAN DO Feb 17, 2022 12:20
[2022-02-17 16:25] VITALS: BP 125/72
[2022-02-17] MEDS: [UNRECOGNIZED DRUG - SUPPLY] MC SCH (16:35)
[2022-02-17] MEDS: ENOXAPARIN 40 MG/0.4 ML (LOVENOX) SYR SC SCH (19:45)
[2022-02-17 19:57] VITALS: BP 131/69
[2022-02-17 23:20] VITALS: BP 143/84
[2022-02-18] MEDS: HYDROmorphone 2 MG/ML VIAL (DILAUDID) IV PRN ×10 (01:20→23:39)
[2022-02-18 04:50] VITALS: BP 128/82
[2022-02-18] MEDS: MEROPENEM 500 MG/NS 100 ML IVPB IV SCH ×4 (05:20→12:16)
[2022-02-18] MEDS: PANTOPRAZOLE 40 MG (PROTONIX) VIAL IV SCH (05:20)
--- NOTE | 2022-02-18 06:12 | Discharge Summary ---
Discharge Summary Hospital Course Was the Problem List Reviewed?: Yes Hospital Course Date of Admission: February 13, 2022 at 16:01 Admission Diagnosis : Family Physician/Provider: Jos Snow MD Date of Discharge: 02/18/22 Discharge Diagnosis: [ ] Hospital Course: [ ] Labs and Pending Lab Test: Microbiology 02/13/22 Urine Culture - Final, Complete Growth Consistent 02/13/22 Blood Culture - Final, Complete Yamini glabrata Home Meds Active Fentanyl Patch 75MCG (Fentanyl) 75 Mcg/Hour Patch.td72 75 Mcg TD Q72H 3 Days Ondansetron Odt (Ondansetron) 4 Mg Tab.rapdis 4 Mg PO Q6H PRN Fentanyl Patch 50 MCG (Fentanyl) 50 Mcg/Hour Patch.td72 50 Mcg TD Q72H 7 Days Enoxaparin Sodium 40 Mg/0.4 Ml Syringe 40 Mg SC Q24H 7 Days Zosyn 4.5 gm/100 ml Galaxy Bag (Untzopcchpax-Ewig-Ekeqcqbw,Iso) 4.5 Gram/100 Ml Froz.piggy 4.5 Gm IV Q8H 3 Days Reported Protonix (Pantoprazole Sodium) 40 Mg Granpkt.dr 40 Mg JT HS Benadryl Allergy (Diphenhydramine HCl) 25 Mg Tablet 25 Mg JT Q6H Ferrous Sulfate 220 Mg/5 Ml Elixir 5 Ml JT TID Morphine Conc. 20mg/ml (Morphine Sulfate) 100 Mg/5 Ml Solution 0.5-1 Ml JT Q4H PRN Ventolin Hfa (Albuterol Sulfate) 18 Gm Hfa.aer.ad 2 Puff INH Q4H PRN Albuterol Sulfate 2.5 Mg/3 Ml Vial.neb 3 Ml INH Q4H PRN Oxycodone HCl 10 Mg Tablet 10 Mg JT Q4H PRN Promethazine HCl 12.5 Mg Tablet 12.5 Mg JT Q6H Ativan (Lorazepam) 1 Mg Tablet 1 Mg JT Q6H PRN Ropinirole HCl 0.25 Mg Tablet 0.25 Mg JT HS Sertraline HCl 50 Mg Tablet 50 Mg JT DAILY Reglan (Metoclopramide HCl) 10 Mg Tablet 10 Mg JT Q6H Discharge Physical Examination Vital Signs Vital Signs Date Time Temp Pulse Resp B/P (MAP) Pulse Ox O2 Delivery O2 Flow Rate FiO2 02/18/22 04:50 37.7 116 20 128/82 (97) 97 Nasal Cannula 2.00 02/13/22 20:40 21 Allergies: Coded Allergies: codeine (Unverified Adverse Reaction, Unknown, 09/03/18) severe stomach pain Discharge Summary Date of Admission February 13, 2022 at 16:01 Date of Discharge Discharge Date: Feb 17, 2022 Admission Diagnosis Assessment: UTI PNA Chronic esophagus resection Diverting colostomy by Dr Bragg Cough due to aspiration? J-tube removal needs replaced TPN maintained Severe debility Plan: IVF IV abx Dr Ley appreciated TPN Discharge Diagnosis Assessment: Yamini globrata fungemia placed on Diflucan 200mg IV but changed to Amphotericin B this evening when fever noted and tachycardia and moved to [facility] but now DNR and DC on Hospice tomorrow and moving to 4th floor Presumed sepsis UTI on Vanc and Enrike PNA likely aspiration type Chronic esophagus resection Diverting colostomy by Dr Bragg Cough due to aspiration? J-tube removal needs replaced? Can replace due to unstable and poor wound heali ng high risk for perforation TPN maintained Severe debility Hypokalemia Anemia of chronic disease Plan: IVF IV abx Dr Ley appreciated TPN 02/15/22: Amphotericin B Move to [facility] IVF bolus Check labs Prognosis is becoming more and more poor given the fact unable to even place J- tube due to debilitated state May need PICC replaced tomorrow 02/16/22: DC tomorrow on Hospice Move to [facility] DNR 02/17/2022: Supportive care BISHOP VAN DO Feb 18, 2022 06:12
[2022-02-18] MEDS: NS IV 1000 ML 1,000 ML IV SCH ×3 (08:02→21:26)
[2022-02-18 08:34] VITALS: BP 145/86
[2022-02-18] MEDS: [UNRECOGNIZED DRUG - REMARK] IV SCH (09:29)
[2022-02-18] MEDS: AMPHOTERICIN B LIPOSOME IV SCH (09:30)
[2022-02-18] MEDS: DEXTROSE IV SCH (09:30)
[2022-02-18] MEDS: MICONAZOLE 2% POWDER (DESENEX AF) 90 GM TOP SCH ×2 (09:33→21:27)
--- NOTE | 2022-02-18 10:29 | Physician Query Clarification ---
Physician Query-General Query to Physician: The medical record reflects the following clinical evidence: Clinical Indicators: Very poor wound healing, patient unable to eat due to aspiration and unable to use J tube due to issues with stoma, Pt weight 9 days before admission was 56 KG, Wt loss of 11 Kg on admission 45KG is admission wt. with is a 24 % Wt loss in 9 days. Weakness of all extremities, edema to bilateral lower extremities, Non pitting documented by nursing on admission Risk Factor(s): Multiple prolonged hospitalizations with previous GI tract surgeries, Esophageal resection and Colostomy placement, Treatment: Now requiring TPN, Considered removing and replacing J tube, but Pt too high risk for perforation, 1. Unspecified severe protein-calorie malnutrition, present on admission 2. Other explanation of clinical findings 3. Unable to determine (no explanation for clinical findings) Please clarify and document your clinical opinion in the progress notes and discharge summary including the definitive and/or presumptive diagnosis, (suspected or probable), related to the above clinical findings. Please include clinical findings supporting your diagnosis. Bindu Faith MSN, RN Clinical Nurse Specialist [phone] [email or web address] PHYSICIAN RESPONSE: Based on the clinical findings in the record, please respond to the query above on this document as an addendum. Physician Response: Physician Response 1 If you have questions please contact: [employer]: Ext: Thank you for your time and cooperation. Clinical Retail Service Lead Merchandiser/[employer] This is a permanent part of the medical record BINDU FAITH Feb 18, 2022 10:29 BISHOP VAN DO Feb 18, 2022 11:52
[2022-02-18] MEDS ORDERED: FENT1PAT11 TD (10:40)
[2022-02-18] MEDS: fentaNYL PATCH 100 MCG (DURAGESIC) TD SCH (11:02)
--- NOTE | 2022-02-18 11:09 | Progress Note - Hospitalist ---
Subjective HPI/CC On Admission Date Seen by Provider: Feb 18, 2022 CC: Weakness HPI: This is a 61yoWF clinic patient of [facility] who is known to me from prior hospital stays who has a h/o diverting colostomy and esophageal resection who just DC'ed from [place] 9 days ago after 1 month of hospital stay for respiratory failure and multi-system failure. She was found to have early UTI and early PNA requiring admit for IV abx since there is no access for PO due to removal of J tube. She remains on TPN. She coughs constantly but no cough suppressants can be given due to NPO status and no esophagus. Dr Ley consulted and attempted to replace J tube but the stoma was stenosed and unable to place it. Patient appears to be very end stage and a hospice candidate. Patient will be moved to the 4th floor today. Enrike and Vanc maintained. Subjective/Events-last exam Pt about the same Esophagus tube fell out so Dr. Ley will help nurse put that back in Fentanyl patch of 100 was placed Unsure where we will go from here Nursing homes will not accept TPN patients Focused Exam Lactate Level 02/15/22 20:50: Lactic Acid Level 1.48 Objective Exam Vital Signs Vital Signs Date Time Temp Pulse Resp B/P (MAP) Pulse Ox O2 Delivery O2 Flow Rate FiO2 02/18/22 19:57 37.5 118 20 136/82 (100) 98 Nasal Cannula 2.00 02/13/22 20:40 21 Capillary Refill : Less Than 3 Seconds General Appearance: Chronically ill, Other (sedated) Respiratory: Lungs Clear Cardiovascular: Regular Rate, Rhythm Results/Procedures Lab Patient resulted labs reviewed. Assessment/Plan Assessment and Plan Assess & Plan/Chief Complaint Assessment: Yamini globrata fungemia placed on Diflucan 200mg IV but changed to Amphotericin B this evening when fever noted and tachycardia and moved to [facility] but now DNR and DC on Hospice Presumed sepsis UTI on Vanc and Enrike PNA likely aspiration type Chronic esophagus resection Diverting colostomy by Dr Bragg Cough due to aspiration? J-tube removal needs replaced? Can replace due to unstable and poor wound healing high risk for perforation TPN maintained Severe debility Hypokalemia Anemia of chronic disease Plan: IVF IV abx Dr Ley appreciated TPN 02/15/22: Amphotericin B Move to [facility] IVF bolus Check labs Prognosis is becoming more and more poor given the fact unable to even place J- tube due to debilitated state May need PICC replaced tomorrow 02/16/22: DC tomorrow on Hospice Move to 4th DNR 02/17/2022: Supportive care 02/18/22: Increase Fentanyl patch to 100mcg BISHOP VAN DO Feb 18, 2022 11:08
[2022-02-18 12:06] VITALS: BP 157/81
--- NOTE | 2022-02-18 12:57 | Progress Note ---
Subjective Date Seen by a Provider: Feb 18, 2022 Time Seen by a Provider: 11:00 Subjective/Events-last exam doing ok. quiroga drainage tube per cervical eosphagostomy fell out last night. Focused Exam Lactate Level 02/15/22 20:50: Lactic Acid Level 1.48 Objective Exam Vital Signs Date Time Temp Pulse Resp B/P (MAP) Pulse Ox O2 Delivery O2 Flow Rate FiO2 02/18/22 12:06 37.1 112 20 157/81 (106) 98 Nasal Cannula 2.00 02/18/22 08:34 37.6 118 17 145/86 (105) 98 Nasal Cannula 2.00 02/18/22 08:10 98 Nasal Cannula 2.00 02/18/22 08:00 Nasal Cannula 2.00 02/18/22 04:50 37.7 116 20 128/82 (97) 97 Nasal Cannula 2.00 02/17/22 23:20 37.9 136 24 143/84 (103) 98 Nasal Cannula 2.00 02/17/22 20:55 119 02/17/22 19:57 36.6 138 18 131/69 (89) 96 Nasal Cannula 2.00 02/17/22 19:48 Nasal Cannula 2.00 02/17/22 16:25 36.1 120 18 125/72 (89) 97 Nasal Cannula 2.00 I & O 02/18/22 07:00 Intake Total 1650 ml Output Total 300 ml Balance 1350 ml Capillary Refill : Less Than 3 Seconds General Appearance: No Apparent Distress HEENT: PERRL/EOMI Neck: Full Range of Motion Respiratory: Chest Non Tender Cardiovascular: Regular Rate, Rhythm Gastrointestinal: normal bowel sounds, non tender, soft Extremity: Normal Capillary Refill Neurologic/Psychiatric: Alert, Oriented x3 Skin: Normal Color Lymphatic: No Adenopathy Results Lab Microbiology 02/13/22 Urine Culture - Final, Complete Growth Consistent 02/13/22 Blood Culture - Final, Complete Yamini glabrata Assessment/Plan Assessment/Plan Assess & Plan/Chief Complaint dislodged drainage tube per cervical esophagostomy. will replace tube. TAI SANCHEZ MD Feb 18, 2022 12:57
--- NOTE | 2022-02-18 13:18 | Physical Therapy Progress Note ---
Therapy Progress Note Patient transferred up to cardiac step down then back to 4th floor. With this, PT requires new orders to resume therapy. J CARLOS FINE PT Feb 18, 2022 13:18
[2022-02-18] MEDS: KETOROLAC 15 MG/ML VIAL IVP PRN (15:35)
[2022-02-18 16:07] VITALS: BP 141/76
[2022-02-18] MEDS: [UNRECOGNIZED DRUG - SUPPLY] MC SCH (16:56)
[2022-02-18] MEDS: ONDANSETRON 4 MG/2 ML (SDV) Z0FRAN IV PRN (17:40)
[2022-02-18 19:57] VITALS: BP 136/82
[2022-02-18] MEDS: ENOXAPARIN 40 MG/0.4 ML (LOVENOX) SYR SC SCH (21:26)
[2022-02-18 23:11] VITALS: BP 145/83
--- NOTE | 2022-02-19 00:02 | Progress Note ---
Standard Progress Note Progress Notes/Assess & Plan Date Seen by a Provider: Feb 18, 2022 Time Seen by a Provider: 11:00 Progress/Assessment & Plan procedure: patient has cervical esophagostomy with quiroga drainage tube to gravity bag. GI tube dislodged. 16fr quiroga placed into cervical esophagostomy with kuhn of air and salive. balloon insufflated to 4cc saline without any neck discomfort or pressure. drain placed to new gravity drainage bag. TAI SANCHEZ MD Feb 19, 2022 00:02
[2022-02-19] MEDS: HYDROmorphone 2 MG/ML VIAL (DILAUDID) IV PRN ×9 (01:51→22:14)
[2022-02-19 02:12] VITALS: BP 136/82
[2022-02-19 04:00] VITALS: BP 144/77
[2022-02-19] MEDS: PANTOPRAZOLE 40 MG (PROTONIX) VIAL IV SCH (06:06)
[2022-02-19 08:00] VITALS: BP 133/74
[2022-02-19] MEDS: ONDANSETRON 4 MG/2 ML (SDV) Z0FRAN IV PRN (08:55)
[2022-02-19] MEDS: AMPHOTERICIN B LIPOSOME IV SCH (09:43)
[2022-02-19] MEDS: DEXTROSE IV SCH (09:43)
[2022-02-19] MEDS: [UNRECOGNIZED DRUG - REMARK] IV SCH (09:43)
[2022-02-19] MEDS: MICONAZOLE 2% POWDER (DESENEX AF) 90 GM TOP SCH ×2 (10:08→20:49)
--- NOTE | 2022-02-19 10:59 | Physical Therapy Progress Note ---
Therapy Progress Note Patient transferred up to cardiac step down then back to 4th floor. With this, PT requires new orders to resume therapy. J CARLOS FINE PT Feb 19, 2022 10:59
--- NOTE | 2022-02-19 11:24 | Progress Note - Hospitalist ---
Subjective HPI/CC On Admission Date Seen by Provider: Feb 19, 2022 Time Seen by Provider: 10:30 CC: Weakness HPI: This is a 61yoWF clinic patient of [facility] who is known to me from prior hospital stays who has a h/o diverting colostomy and esophageal resection who just DC'ed from [place] 9 days ago after 1 month of hospital stay for respiratory failure and multi-system failure. She was found to have early UTI and early PNA requiring admit for IV abx since there is no access for PO due to removal of J tube. She remains on TPN. She coughs constantly but no cough suppressants can be given due to NPO status and no esophagus. Dr Ley consulted and attempted to replace J tube but the stoma was stenosed and unable to place it. Patient appears to be very end stage and a hospice candidate. Patient will be moved to the 4th floor today. Enrike and Vanc maintained. Subjective/Events-last exam Patient sleeping with sonorous respirations appears to be in no acute distress eyes open but she did not respond to verbal stimulation. Objective Exam Vital Signs Vital Signs Date Time Temp Pulse Resp B/P (MAP) Pulse Ox O2 Delivery O2 Flow Rate FiO2 02/19/22 08:00 37.6 112 18 133/74 (93) 97 Nasal Cannula 2.00 02/19/22 02:12 28 Capillary Refill : Less Than 3 Seconds General Appearance: Chronically ill Respiratory: No Accessory Muscle Use, No Respiratory Distress, Other (Coarse breath sounds anteriorly without wheezing no rales noted.) Cardiovascular: Regular Rate, Rhythm, No Murmur Results/Procedures Lab Patient resulted labs reviewed. Assessment/Plan Assessment and Plan Assess & Plan/Chief Complaint Assessment: Yamini globrata fungemia placed on Diflucan 200mg IV but changed to Amphotericin B this evening when fever noted and tachycardia and moved to [facility] but now DNR and DC on Hospice. Presumed sepsis UTI on Vanc and Enrike PNA likely aspiration type Chronic esophagus resection Diverting colostomy by Dr Bragg Cough due to aspiration? J-tube removal needs replaced? Can replace due to unstable and poor wound healing high risk for perforation TPN maintained Severe debility Hypokalemia Anemia of chronic disease 02/19/2022 Plan to [facility] to [facility] on hospice hopefully Monday. We will continue antifungal therapy DC other noncomfort care related medication. Critical Care Critically Ill Patient RICKY MAI MD Feb 19, 2022 11:24
[2022-02-19] MEDS: NS IV 1000 ML 1,000 ML IV SCH (14:15)
[2022-02-19 15:52] VITALS: BP 141/73
[2022-02-19] MEDS: [UNRECOGNIZED DRUG - SUPPLY] MC SCH (17:11)
[2022-02-19] MEDS: LORazepam INJ 2 MG/ML (ATIVAN) VIAL IVP PRN (18:08)
[2022-02-19] MEDS: KETOROLAC 15 MG/ML VIAL IVP PRN (18:09)
[2022-02-19 19:07] VITALS: BP 143/75
[2022-02-19] MEDS: ENOXAPARIN 40 MG/0.4 ML (LOVENOX) SYR SC SCH (20:49)
[2022-02-20] VITALS: BP 162/82
[2022-02-20] MEDS: HYDROmorphone 2 MG/ML VIAL (DILAUDID) IV PRN ×8 (00:42→17:36)
[2022-02-20 03:17] VITALS: BP 190/88
[2022-02-20] MEDS: KETOROLAC 15 MG/ML VIAL IVP PRN ×2 (03:17→16:21)
[2022-02-20] MEDS: ONDANSETRON 4 MG/2 ML (SDV) Z0FRAN IV PRN ×3 (05:09→16:21)
[2022-02-20] MEDS: PANTOPRAZOLE 40 MG (PROTONIX) VIAL IV SCH (06:12)
[2022-02-20 08:30] VITALS: BP 180/100
[2022-02-20] MEDS: MICONAZOLE 2% POWDER (DESENEX AF) 90 GM TOP SCH ×2 (09:15→20:02)
[2022-02-20] MEDS: [UNRECOGNIZED DRUG - REMARK] IV SCH (10:15)
[2022-02-20] MEDS: AMPHOTERICIN B LIPOSOME IV SCH (10:15)
[2022-02-20] MEDS: DEXTROSE IV SCH (10:15)
[2022-02-20] MEDS ORDERED: fentaNYL PATCH 100 MCG (DURAGESIC) TD SCH (11:45)
[2022-02-20 11:51] VITALS: BP 176/98
[2022-02-20] MEDS: LORazepam INJ 2 MG/ML (ATIVAN) VIAL IVP PRN ×3 (12:01→22:08)
--- NOTE | 2022-02-20 12:46 | Progress Note - Hospitalist ---
Subjective HPI/CC On Admission Date Seen by Provider: Feb 20, 2022 Time Seen by Provider: 11:00 CC: Weakness HPI: This is a 61yoWF clinic patient of [facility] who is known to me from prior hospital stays who has a h/o diverting colostomy and esophageal resection who just DC'ed from [place] 9 days ago after 1 month of hospital stay for respiratory failure and multi-system failure. She was found to have early UTI and early PNA requiring admit for IV abx since there is no access for PO due to removal of J tube. She remains on TPN. She coughs constantly but no cough suppressants can be given due to NPO status and no esophagus. Dr Ley consulted and attempted to replace J tube but the stoma was stenosed and unable to place it. Patient appears to be very end stage and a hospice candidate. Patient will be moved to the 4th floor today. Enrike and Vanc maintained. Subjective/Events-last exam Patient reports abdominal pain staff reports she has been clock watching getting half milligram of Dilaudid every 2 hours in addition to her 50 mcg of fentanyl patch. She is quite pale appearing chronically ill denying any other symptoms. She voices understanding of the she does not have much longer to live and is very agreeable to comfort care issues including discontinuing antibiotics with an increase in pain medication. Objective Exam Vital Signs Vital Signs Date Time Temp Pulse Resp B/P (MAP) Pulse Ox O2 Delivery O2 Flow Rate FiO2 02/20/22 11:51 37.0 95 19 176/98 (124) 95 Nasal Cannula 2.50 02/19/22 02:12 28 Capillary Refill : Less Than 3 Seconds General Appearance: Chronically ill, Mild Distress Respiratory: No Accessory Muscle Use, No Respiratory Distress, Other ( coarse of breath sounds throughout) Cardiovascular: Other (Difficult to hear over coarse breath sounds no murmur noted) Gastrointestinal: Other ( abdominal distention noted no bowel sounds appreciated diffuse tenderness no induration no obvious mass.) Results/Procedures Lab Patient resulted labs reviewed. Assessment/Plan Assessment and Plan Assess & Plan/Chief Complaint Assessment: Yamini globrata fungemia placed on Diflucan 200mg IV but changed to Amphotericin B this evening when fever noted and tachycardia and moved to [facility] but now DNR and DC on Hospice. Presumed sepsis UTI on Vanc and Enrike PNA likely aspiration type Chronic esophagus resection Diverting colostomy by Dr Delman Cough due to aspiration? J-tube removal needs replaced? Can replace due to unstable and poor wound healing high risk for perforation TPN maintained Severe debility Hypokalemia Anemia of chronic disease 02/19/2022 Plan to discharge to residential facility on hospice hopefully Monday. We will continue antifungal therapy DC other noncomfort care related medication. 02/20/2022 Patient appears to be in the active stage of dying per her request after discussion see HPI we will be discontinuing antibiotics and initiating comfort care protocol with increase in fentanyl patch to 100 mcg and increasing Dilaudid from 0.5 mg to 2 mg IV every 2 as needed as her pain currently is not adequately controlled. Critical Care Critically Ill Patient RICKY MAI MD Feb 20, 2022 12:46
[2022-02-20] MEDS: diphenhydrAMINE 50 MG/ML INJ (BENADRYL) IVP PRN (16:21)
[2022-02-20] MEDS ORDERED: SODIUM PHOSPHATE IV SCH ×10 (17:00)
[2022-02-20] MEDS ORDERED: [UNRECOGNIZED DRUG - OTHER] IV SCH ×10 (17:00)
[2022-02-20] MEDS ORDERED: POTASSIUM CHLORIDE IV SCH ×10 (17:00)
[2022-02-20] MEDS: [UNRECOGNIZED DRUG - SUPPLY] MC SCH (18:00)
[2022-02-20] MEDS: ENOXAPARIN 40 MG/0.4 ML (LOVENOX) SYR SC SCH (20:01)
[2022-02-21] MEDS: HYDROmorphone 2 MG/ML VIAL (DILAUDID) IV PRN ×6 (02:53→21:15)
[2022-02-21] MEDS: PANTOPRAZOLE 40 MG (PROTONIX) VIAL IV SCH (06:12)
[2022-02-21] MEDS ORDERED: RT-ALBUTEROL/IPRATROPIUM 3 ML (DUONEB) VIAL INH PRN (07:30)
[2022-02-21] MEDS ORDERED: BISACODYL 10 MG SUPP (DULCOLAX) PR PRN (07:30)
[2022-02-21] MEDS ORDERED: ONDANSETRON 4 MG/2 ML (SDV) Z0FRAN IVP PRN (07:30)
[2022-02-21] MEDS ORDERED: ARTIFICAL TEARS 0.4 ML UNIT DOSE (REFRESH PLUS) OU PRN (07:30)
--- NOTE | 2022-02-21 07:45 | Physical Therapy Progress Note ---
Therapy Progress Note PT to remove patient from schedule due to comfort measures. CONNOR HARPER PT Feb 21, 2022 07:45
[2022-02-21] MEDS: MICONAZOLE 2% POWDER (DESENEX AF) 90 GM TOP SCH ×2 (09:21→21:18)
[2022-02-21] MEDS: fentaNYL PATCH 100 MCG (DURAGESIC) TD SCH (09:21)
[2022-02-21] MEDS: GLYCOPYRROLATE 0.2 MG/ML (ROBINUL) 2 ML VIAL IV PRN ×2 (09:29→21:15)
[2022-02-21] MEDS: SALIVA STIMULANT MOUTH SPRAY (BIOTENE) 1.5 OZ MM PRN (14:00)
--- NOTE | 2022-02-21 14:31 | Progress Note ---
Subjective Subjective/Events-last exam Patient appears comfortable this AM. States that she has to urinate and has quiroga in place draining clear urine. Review of Systems Pulmonary: Cough Cardiovascular: No: Chest Pain, Palpitations Gastrointestinal: Abdominal Pain; No: Nausea, Vomiting Genitourinary: Dysuria Neurological: Weakness, Incoordination Objective Exam Last Set of Vital Signs Vital Signs Date Time Temp Pulse Resp B/P (MAP) Pulse Ox O2 Delivery O2 Flow Rate FiO2 02/21/22 08:20 Nasal Cannula 2.00 02/20/22 20:02 96 02/20/22 11:51 37.0 95 19 176/98 (124) 02/19/22 02:12 28 Capillary Refill : Less Than 3 Seconds I&O Intake and Output 02/21/22 00:00 Intake Total 350 ml Output Total 1550 ml Balance -1200 ml Intake Oral 0 ml IV Total 350 ml Output Urine Total 1075 ml Drainage Total 475 ml # Voids 3 General: Alert, No Acute Distress Lungs: Other (diffuse wheezing, normal work of breathing) Abdomen: Soft Neuro: Normal Speech Results/Procedures Lab Microbiology 02/13/22 Urine Culture - Final, Complete Growth Consistent 02/13/22 Blood Culture - Final, Complete Yamini glabrata Assessment/Plan Assessment/Plan (1) Fungemia Status: Acute Assessment & Plan: 02/21: Continued to have fevers and increase in WBC while on treatments, patient has had rapid decline and has had a prolonged recent hospital course with multiple complications. She has elected to go on comfort care and stop antibiotics and aggressive care. TPN and antibiotics have been discontinued this AM. SW updated and will look for possible placement and hospice care. (2) Sepsis Status: Acute (3) UTI (urinary tract infection) Status: Acute Qualifiers: Qualified Codes: N30.00 - Acute cystitis without hematuria (4) Protein-energy malnutrition Status: Chronic Qualifiers: Qualified Codes: E44.0 - Moderate protein-calorie malnutrition JOSE VELÁSQUEZ MD Feb 21, 2022 14:31
[2022-02-21] MEDS: LORazepam INJ 2 MG/ML (ATIVAN) VIAL IVP PRN (17:34)
[2022-02-21] MEDS: PROMETHAZINE INJ 25 MG/ML (PHENERGAN) AMP IVP PRN (21:18)
[2022-02-22] MEDS: GLYCOPYRROLATE 0.2 MG/ML (ROBINUL) 2 ML VIAL IV PRN ×2 (02:26→08:07)
[2022-02-22] MEDS: HYDROmorphone 2 MG/ML VIAL (DILAUDID) IV PRN ×7 (02:29→20:05)
[2022-02-22] MEDS: LORazepam INJ 2 MG/ML (ATIVAN) VIAL IVP PRN ×3 (03:15→21:40)
[2022-02-22] MEDS: SALIVA STIMULANT MOUTH SPRAY (BIOTENE) 1.5 OZ MM PRN (04:39)
[2022-02-22] MEDS: PROMETHAZINE INJ 25 MG/ML (PHENERGAN) AMP IVP PRN (04:44)
[2022-02-22] MEDS: MICONAZOLE 2% POWDER (DESENEX AF) 90 GM TOP SCH ×2 (08:12→21:40)
--- NOTE | 2022-02-22 17:19 | Progress Note ---
Subjective Subjective/Events-last exam Patient resting comfortably. States that pain is well controlled at the moment. Review of Systems Pulmonary: No Dyspnea; Cough Cardiovascular: No: Chest Pain, Palpitations Neurological: Weakness, Incoordination Objective Exam Last Set of Vital Signs Vital Signs Date Time Temp Pulse Resp B/P (MAP) Pulse Ox O2 Delivery O2 Flow Rate FiO2 02/22/22 08:00 Nasal Cannula 2.00 02/22/22 05:15 37.0 02/20/22 20:02 96 02/20/22 11:51 95 19 176/98 (124) 02/19/22 02:12 28 Capillary Refill : Less Than 3 Seconds I&O Intake and Output 02/22/22 00:00 Intake Total 3771.1667 ml Output Total 2745 ml Balance 1026.1667 ml Intake Oral 0 ml IV Total 3771.1667 ml Output Urine Total 2350 ml Drainage Total 395 ml General: Alert (Person and place), Mild Distress Lungs: Clear to Auscultation Heart: Regular Rate, No Murmurs Abdomen: Soft Neuro: Other (slowed speech) Results/Procedures Lab Microbiology 02/13/22 Urine Culture - Final, Complete Growth Consistent 02/13/22 Blood Culture - Final, Complete Yamini glabrata Assessment/Plan Assessment/Plan (1) Need for comfort care Status: Acute Assessment & Plan: 02/22: Resting comfortably, Will call and update family, Will work on placement to [place] for hospice care (2) Fungemia Status: Acute Assessment & Plan: 02/21: Continued to have fevers and increase in WBC while on treatments, patient has had rapid decline and has had a prolonged recent hospital course with multiple complications. She has elected to go on comfort care and stop antibiotics and aggressive care. TPN and antibiotics have been discontinued this AM. SW updated and will look for possible placement and hospice care. (3) Sepsis Status: Acute (4) UTI (urinary tract infection) Status: Acute Qualifiers: Qualified Codes: N30.00 - Acute cystitis without hematuria (5) Protein-energy malnutrition Status: Chronic Qualifiers: Qualified Codes: E44.0 - Moderate protein-calorie malnutrition JOSE VELÁSQUEZ MD Feb 22, 2022 17:19
[2022-02-22] MEDS: diphenhydrAMINE 50 MG/ML INJ (BENADRYL) IVP PRN (20:00)
[2022-02-23] MEDS: HYDROmorphone 2 MG/ML VIAL (DILAUDID) IV PRN ×8 (00:50→23:16)
[2022-02-23] MEDS: LORazepam INJ 2 MG/ML (ATIVAN) VIAL IVP PRN ×3 (04:34→16:35)
[2022-02-23] MEDS: MICONAZOLE 2% POWDER (DESENEX AF) 90 GM TOP SCH ×2 (09:18→19:51)
--- NOTE | 2022-02-23 20:57 | Progress Note ---
Subjective Subjective/Events-last exam Patient comfortable this AM. Denies any pain other then with turns. Family at bedside. Review of Systems Pulmonary: Dyspnea Neurological: Weakness, Confusion Objective Exam Last Set of Vital Signs Vital Signs Date Time Temp Pulse Resp B/P (MAP) Pulse Ox O2 Delivery O2 Flow Rate FiO2 02/23/22 08:00 Nasal Cannula 2.00 02/22/22 05:15 37.0 02/20/22 20:02 96 02/20/22 11:51 95 19 176/98 (124) 02/19/22 02:12 28 Capillary Refill : Less Than 3 Seconds I&O Intake and Output 02/23/22 00:00 Intake Total 0 ml Output Total 2175 ml Balance -2175 ml Intake Oral 0 ml Output Urine Total 1925 ml Drainage Total 250 ml General: Alert (quietly talking but answering appropriately) Heart: Regular Rate Abdomen: Soft Psych/Mental Status: Other (Seems to be peaceful and in a good mood with family in the room) Results/Procedures Lab Microbiology 02/13/22 Urine Culture - Final, Complete Growth Consistent 02/13/22 Blood Culture - Final, Complete Yamini glabrata Assessment/Plan Assessment/Plan (1) Need for comfort care Status: Acute Assessment & Plan: 02/22: Resting comfortably, Will call and update family, Will work on placement to [place] for hospice care 02/23: Comfortable, family would like to remain in the hospital for comfort care (2) Fungemia Status: Acute Assessment & Plan: 02/21: Continued to have fevers and increase in WBC while on treatments, patient has had rapid decline and has had a prolonged recent hospital course with multiple complications. She has elected to go on comfort care and stop antibiotics and aggressive care. TPN and antibiotics have been discontinued this AM. SW updated and will look for possible placement and hospice care. (3) Sepsis Status: Acute (4) UTI (urinary tract infection) Status: Acute Qualifiers: Qualified Codes: N30.00 - Acute cystitis without hematuria (5) Protein-energy malnutrition Status: Chronic Qualifiers: Qualified Codes: E44.0 - Moderate protein-calorie malnutrition JOSE VELÁSQUEZ MD Feb 23, 2022 20:57
[2022-02-23] MEDS: GLYCOPYRROLATE 0.2 MG/ML (ROBINUL) 2 ML VIAL IV PRN (23:15)
[2022-02-23] MEDS: SALIVA STIMULANT MOUTH SPRAY (BIOTENE) 1.5 OZ MM PRN (23:24)
[2022-02-24] MEDS: HYDROmorphone 2 MG/ML VIAL (DILAUDID) IV PRN ×10 (01:31→21:54)
[2022-02-24] MEDS: LORazepam INJ 2 MG/ML (ATIVAN) VIAL IVP PRN (02:12)
[2022-02-24] MEDS: MICONAZOLE 2% POWDER (DESENEX AF) 90 GM TOP SCH ×2 (07:46→20:48)
[2022-02-24] MEDS: fentaNYL PATCH 100 MCG (DURAGESIC) TD SCH (10:22)
--- NOTE | 2022-02-24 13:54 | Progress Note ---
Subjective Subjective/Events-last exam Patient opens eyes and answers questions appropriately. Family at bedside. She states that her pain is well controlled and she is comfortable. Review of Systems Pulmonary: Dyspnea Cardiovascular: No: Chest Pain, Palpitations Neurological: Weakness, Confusion Objective Exam Last Set of Vital Signs Vital Signs Date Time Temp Pulse Resp B/P (MAP) Pulse Ox O2 Delivery O2 Flow Rate FiO2 02/24/22 08:00 Nasal Cannula 2.00 02/22/22 05:15 37.0 02/20/22 20:02 96 02/20/22 11:51 95 19 176/98 (124) 02/19/22 02:12 28 Capillary Refill : Less Than 3 Seconds I&O Intake and Output 02/24/22 00:00 Intake Total 0 ml Output Total 1700 ml Balance -1700 ml Intake Oral 0 ml Output Urine Total 1650 ml Drainage Total 50 ml General: Alert, Oriented X3, No Acute Distress Lungs: Other (short and shallow breaths) Abdomen: Soft Psych/Mental Status: Other (mild anxiety) Results/Procedures Lab Microbiology 02/13/22 Urine Culture - Final, Complete Growth Consistent 02/13/22 Blood Culture - Final, Complete Yamini glabrata Assessment/Plan Assessment/Plan (1) Need for comfort care Status: Acute Assessment & Plan: 02/22: Resting comfortably, Will call and update family, Will work on placement to [place] for hospice care 02/23: Comfortable, family would like to remain in the hospital for comfort care 02/24: Patient comfortable, family at bedside (2) Fungemia Status: Acute Assessment & Plan: 02/21: Continued to have fevers and increase in WBC while on treatments, patient has had rapid decline and has had a prolonged recent hospital course with multiple complications. She has elected to go on comfort care and stop antibiotics and aggressive care. TPN and antibiotics have been discontinued this AM. SW updated and will look for possible placement and hospice care. (3) Sepsis Status: Acute (4) UTI (urinary tract infection) Status: Acute Qualifiers: Qualified Codes: N30.00 - Acute cystitis without hematuria (5) Protein-energy malnutrition Status: Chronic Qualifiers: Qualified Codes: E44.0 - Moderate protein-calorie malnutrition JOSE VELÁSQUEZ MD Feb 24, 2022 13:54
[2022-02-25] MEDS: HYDROmorphone 2 MG/ML VIAL (DILAUDID) IV PRN ×10 (00:04→23:14)
[2022-02-25] MEDS: MICONAZOLE 2% POWDER (DESENEX AF) 90 GM TOP SCH ×2 (08:31→20:39)
--- NOTE | 2022-02-25 10:33 | Progress Note - Hospitalist ---
Subjective HPI/CC On Admission Date Seen by Provider: Feb 25, 2022 Time Seen by Provider: 11:00 CC: Weakness HPI: This is a 61yoWF clinic patient of [facility] who is known to me from prior hospital stays who has a h/o diverting colostomy and esophageal resection who just DC'ed from [place] 9 days ago after 1 month of hospital stay for respiratory failure and multi-system failure. She was found to have early UTI and early PNA requiring admit for IV abx since there is no access for PO due to removal of J tube. She remains on TPN. She coughs constantly but no cough suppressants can be given due to NPO status and no esophagus. Dr Ley consulted and attempted to replace J tube but the stoma was stenosed and unable to place it. Patient appears to be very end stage and a hospice candidate. Patient will be moved to the 4th floor today. Enrike and Vanc maintained. Subjective/Events-last exam Pt is still on comfort care Opens her eyes Somewhat comatose Family is at the bedside No TPN infusing Objective Exam Vital Signs Vital Signs Date Time Temp Pulse Resp B/P (MAP) Pulse Ox O2 Delivery O2 Flow Rate FiO2 02/25/22 08:00 Nasal Cannula 2.00 02/24/22 20:07 37.0 02/20/22 20:02 96 02/20/22 11:51 95 19 176/98 (124) 02/19/22 02:12 28 Capillary Refill : Less Than 3 Seconds General Appearance: No Apparent Distress, WD/WN, Chronically ill Results/Procedures Lab Patient resulted labs reviewed. Assessment/Plan Assessment and Plan Assess & Plan/Chief Complaint Assessment: Yamini globrata fungemia placed on Diflucan 200mg IV but changed to Amphotericin B this evening when fever noted and tachycardia and moved to [facility] but now DNR and on comfort care Presumed sepsis UTI on Vanc and Enrike PNA likely aspiration type Chronic esophagus resection Diverting colostomy by Dr Bragg Cough due to aspiration? J-tube removal needs replaced? Can replace due to unstable and poor wound healing high risk for perforation TPN maintained Severe debility Hypokalemia Anemia of chronic disease Plan: IVF IV abx Dr Ley appreciated TPN 02/15/22: Amphotericin B Move to [facility] IVF bolus Check labs Prognosis is becoming more and more poor given the fact unable to even place J- tube due to debilitated state May need PICC replaced tomorrow 02/16/22: DC tomorrow on Hospice Move to 4th DNR 02/17/2022: Supportive care 02/18/22: Increase Fentanyl patch to 100mcg 02/19/22: Comfort care Critical Care Critically Ill Patient BISHOP VAN 10, 2022 10:33
[2022-02-26] MEDS: HYDROmorphone 2 MG/ML VIAL (DILAUDID) IV PRN ×8 (01:49→22:30)
--- NOTE | 2022-02-26 06:13 | Progress Note - Hospitalist ---
Subjective HPI/CC On Admission Date Seen by Provider: Feb 26, 2022 Time Seen by Provider: 11:00 CC: Weakness HPI: This is a 61yoWF clinic patient of [facility] who is known to me from prior hospital stays who has a h/o diverting colostomy and esophageal resection who just DC'ed from [place] 9 days ago after 1 month of hospital stay for respiratory failure and multi-system failure. She was found to have early UTI and early PNA requiring admit for IV abx since there is no access for PO due to removal of J tube. She remains on TPN. She coughs constantly but no cough suppressants can be given due to NPO status and no esophagus. Dr Ley consulted and attempted to replace J tube but the stoma was stenosed and unable to place it. Patient appears to be very end stage and a hospice candidate. Patient will be moved to the 4th floor today. Enrike and Vanc maintained. Subjective/Events-last exam No significant changes No pain Objective Exam Vital Signs Vital Signs Date Time Temp Pulse Resp B/P (MAP) Pulse Ox O2 Delivery O2 Flow Rate FiO2 02/26/22 09:22 96 Nasal Cannula 2.00 02/24/22 20:07 37.0 02/20/22 11:51 95 19 176/98 (124) Capillary Refill : Less Than 3 Seconds General Appearance: No Apparent Distress, Chronically ill Results/Procedures Lab Patient resulted labs reviewed. Assessment/Plan Assessment and Plan Assess & Plan/Chief Complaint Assessment: Yamini globrata fungemia placed on Diflucan 200mg IV but changed to Amphotericin B this evening when fever noted and tachycardia and moved to [facility] but now DNR and on comfort care Presumed sepsis UTI on Vanc and Enrike PNA likely aspiration type Chronic esophagus resection Diverting colostomy by Dr Bragg Cough due to aspiration? J-tube removal needs replaced? Can replace due to unstable and poor wound healing high risk for perforation TPN maintained Severe debility Hypokalemia Anemia of chronic disease Plan: IVF IV abx Dr Ley appreciated TPN 02/15/22: Amphotericin B Move to [facility] IVF bolus Check labs Prognosis is becoming more and more poor given the fact unable to even place J- tube due to debilitated state May need PICC replaced tomorrow 02/16/22: DC tomorrow on Hospice Move to [facility] DNR 02/17/2022: Supportive care 02/18/22: Increase Fentanyl patch to 100mcg 02/19/22: Comfort care 02/26/22: Monitor pain Critical Care Critically Ill Patient BISHOP VAN DO Feb 26, 2022 06:13
[2022-02-26] MEDS: MICONAZOLE 2% POWDER (DESENEX AF) 90 GM TOP SCH ×2 (09:17→21:00)
[2022-02-26] MEDS: LORazepam INJ 2 MG/ML (ATIVAN) VIAL IVP PRN ×3 (09:18→16:28)
[2022-02-26] MEDS: PROMETHAZINE INJ 25 MG/ML (PHENERGAN) AMP IVP PRN (12:17)
[2022-02-26] MEDS: diphenhydrAMINE 50 MG/ML INJ (BENADRYL) IVP PRN (16:32)
[2022-02-27] MEDS: HYDROmorphone 2 MG/ML VIAL (DILAUDID) IV PRN ×8 (01:05→22:34)
--- NOTE | 2022-02-27 06:12 | Progress Note - Hospitalist ---
Subjective HPI/CC On Admission Date Seen by Provider: Feb 27, 2022 Time Seen by Provider: 10:00 CC: Weakness HPI: This is a 61yoWF clinic patient of [facility] who is known to me from prior hospital stays who has a h/o diverting colostomy and esophageal resection who just DC'ed from [place] 9 days ago after 1 month of hospital stay for respiratory failure and multi-system failure. She was found to have early UTI and early PNA requiring admit for IV abx since there is no access for PO due to removal of J tube. She remains on TPN. She coughs constantly but no cough suppressants can be given due to NPO status and no esophagus. Dr Ley consulted and attempted to replace J tube but the stoma was stenosed and unable to place it. Patient appears to be very end stage and a hospice candidate. Patient will be moved to the 4th floor today. Enrike and Vanc maintained. Subjective/Events-last exam NO changes Sleeping Family has no questions Objective Exam Vital Signs Vital Signs Date Time Temp Pulse Resp B/P (MAP) Pulse Ox O2 Delivery O2 Flow Rate FiO2 02/27/22 08:42 91 Room Air 0.00 02/24/22 20:07 37.0 Capillary Refill : Less Than 3 Seconds General Appearance: Chronically ill, Other (semi-comatose) Results/Procedures Lab Patient resulted labs reviewed. Assessment/Plan Assessment and Plan Assess & Plan/Chief Complaint Assessment: Yamini globrata fungemia placed on Diflucan 200mg IV but changed to Amphotericin B this evening when fever noted and tachycardia and moved to [facility] but now DNR and on comfort care Presumed sepsis UTI on Vanc and Enrike PNA likely aspiration type Chronic esophagus resection Diverting colostomy by Dr Bragg Cough due to aspiration? J-tube removal needs replaced? Can replace due to unstable and poor wound healing high risk for perforation TPN maintained Severe debility Hypokalemia Anemia of chronic disease Plan: IVF IV abx Dr Ley appreciated TPN 02/15/22: Amphotericin B Move to [facility] IVF bolus Check labs Prognosis is becoming more and more poor given the fact unable to even place J- tube due to debilitated state May need PICC replaced tomorrow 02/16/22: DC tomorrow on Hospice Move [facility] DNR 02/17/2022: Supportive care 02/18/22: Increase Fentanyl patch to 100mcg 02/19/22: Comfort care 02/26/22: Monitor pain 02/27/22: End of life Critical Care Critically Ill Patient BISHOP VAN 12, 2022 06:12
[2022-02-27] MEDS: LORazepam INJ 2 MG/ML (ATIVAN) VIAL IVP PRN ×6 (08:52→23:25)
[2022-02-27] MEDS: MICONAZOLE 2% POWDER (DESENEX AF) 90 GM TOP SCH ×2 (08:53→22:33)
[2022-02-27] MEDS: fentaNYL PATCH 100 MCG (DURAGESIC) TD SCH (10:41)
[2022-02-28] MEDS: HYDROmorphone 2 MG/ML VIAL (DILAUDID) IV PRN ×9 (01:01→22:45)
--- NOTE | 2022-02-28 06:06 | Progress Note - Hospitalist ---
Subjective HPI/CC On Admission Date Seen by Provider: Feb 28, 2022 Time Seen by Provider: 10:00 CC: Weakness HPI: This is a 61yoWF clinic patient of [facility] who is known to me from prior hospital stays who has a h/o diverting colostomy and esophageal resection who just DC'ed from [place] 9 days ago after 1 month of hospital stay for respiratory failure and multi-system failure. She was found to have early UTI and early PNA requiring admit for IV abx since there is no access for PO due to removal of J tube. She remains on TPN. She coughs constantly but no cough suppressants can be given due to NPO status and no esophagus. Dr Ley consulted and attempted to replace J tube but the stoma was stenosed and unable to place it. Patient appears to be very end stage and a hospice candidate. Patient will be moved to the 4th floor today. Enrike and Vanc maintained. Subjective/Events-last exam No major change Comfort care protocol maintained Pain medication maintained Objective Exam Vital Signs Vital Signs Date Time Temp Pulse Resp B/P (MAP) Pulse Ox O2 Delivery O2 Flow Rate FiO2 02/28/22 20:00 Room Air 02/27/22 20:20 91 0.00 02/24/22 20:07 37.0 Capillary Refill : Less Than 3 Seconds General Appearance: Chronically ill, Other (Comatose) Results/Procedures Lab Patient resulted labs reviewed. Assessment/Plan Assessment and Plan Assess & Plan/Chief Complaint Assessment: Yamini globrata fungemia placed on Diflucan 200mg IV but changed to Amphotericin B this evening when fever noted and tachycardia and moved to [facility] but now DNR and on comfort care Presumed sepsis UTI on Vanc and Enrike PNA likely aspiration type Chronic esophagus resection Diverting colostomy by Dr Bragg Cough due to aspiration? J-tube removal needs replaced? Can replace due to unstable and poor wound healing high risk for perforation TPN maintained Severe debility Hypokalemia Anemia of chronic disease Plan: IVF IV abx Dr Ley appreciated TPN 02/15/22: Amphotericin B Move to [facility] IVF bolus Check labs Prognosis is becoming more and more poor given the fact unable to even place J- tube due to debilitated state May need PICC replaced tomorrow 02/16/22: DC tomorrow on Hospice Move to [facility] DNR 02/17/2022: Supportive care 02/18/22: Increase Fentanyl patch to 100mcg 02/19/22: Comfort care 02/26/22: Monitor pain 02/27/22: End of life 02/27/22: End of life Critical Care Critically Ill Patient BISHOP VAN 13, 2022 06:06
[2022-02-28] MEDS: MICONAZOLE 2% POWDER (DESENEX AF) 90 GM TOP SCH ×2 (10:19→22:45)
[2022-02-28] MEDS: LORazepam INJ 2 MG/ML (ATIVAN) VIAL IVP PRN (17:19)
[2022-03-01] MEDS: HYDROmorphone 2 MG/ML VIAL (DILAUDID) IV PRN ×9 (01:14→22:23)
[2022-03-01] MEDS: LORazepam INJ 2 MG/ML (ATIVAN) VIAL IVP PRN ×4 (02:48→22:53)
--- NOTE | 2022-03-01 06:54 | Progress Note - Hospitalist ---
Subjective HPI/CC On Admission Date Seen by Provider: Mar 01, 2022 Time Seen by Provider: 10:00 CC: Weakness HPI: This is a 61yoWF clinic patient of [facility] who is known to me from prior hospital stays who has a h/o diverting colostomy and esophageal resection who just DC'ed from [place] 9 days ago after 1 month of hospital stay for respiratory failure and multi-system failure. She was found to have early UTI and early PNA requiring admit for IV abx since there is no access for PO due to removal of J tube. She remains on TPN. She coughs constantly but no cough suppressants can be given due to NPO status and no esophagus. Dr Ley consulted and attempted to replace J tube but the stoma was stenosed and unable to place it. Patient appears to be very end stage and a hospice candidate. Patient will be moved to the 4th floor today. Enrike and Vanc maintained. Subjective/Events-last exam Pt is the same Receiving Dilaudid every 2 hours Urinary output continues Family at the bedside Objective Exam Vital Signs Vital Signs Date Time Temp Pulse Resp B/P (MAP) Pulse Ox O2 Delivery O2 Flow Rate FiO2 03/01/22 20:48 37.0 03/01/22 08:00 92 Room Air 02/27/22 20:20 0.00 Capillary Refill : Less Than 3 Seconds General Appearance: Chronically ill, Other (comatose) Results/Procedures Lab Patient resulted labs reviewed. Assessment/Plan Assessment and Plan Assess & Plan/Chief Complaint Assessment: Yamini globrata fungemia placed on Diflucan 200mg IV but changed to Amphotericin B this evening when fever noted and tachycardia and moved to [facility] but now DNR and on comfort care Presumed sepsis UTI on Vanc and Enrike PNA likely aspiration type Chronic esophagus resection Diverting colostomy by Dr Bragg Cough due to aspiration? J-tube removal needs replaced? Can replace due to unstable and poor wound healing high risk for perforation TPN maintained Severe debility Hypokalemia Anemia of chronic disease Plan: IVF IV abx Dr Ley appreciated TPN 02/15/22: Amphotericin B Move to [facility] IVF bolus Check labs Prognosis is becoming more and more poor given the fact unable to even place J- tube due to debilitated state May need PICC replaced tomorrow 02/16/22: DC tomorrow on Hospice Move to [facility] DNR 02/17/2022: Supportive care 02/18/22: Increase Fentanyl patch to 100mcg 02/19/22: Comfort care 02/26/22: Monitor pain 02/27/22: End of life 02/27/22: End of life 03/01: End of life Critical Care Critically Ill Patient BISHOP VAN 14, 2022 06:54
[2022-03-01] MEDS: MICONAZOLE 2% POWDER (DESENEX AF) 90 GM TOP SCH ×2 (08:10→22:26)
[2022-03-02] MEDS: HYDROmorphone 2 MG/ML VIAL (DILAUDID) IV PRN ×7 (05:26→23:56)
--- NOTE | 2022-03-02 05:57 | Progress Note - Hospitalist ---
Subjective HPI/CC On Admission Date Seen by Provider: Mar 02, 2022 Time Seen by Provider: 09:00 CC: Weakness HPI: This is a 61yoWF clinic patient of [facility] who is known to me from prior hospital stays who has a h/o diverting colostomy and esophageal resection who just DC'ed from [place] 9 days ago after 1 month of hospital stay for respiratory failure and multi-system failure. She was found to have early UTI and early PNA requiring admit for IV abx since there is no access for PO due to removal of J tube. She remains on TPN. She coughs constantly but no cough suppressants can be given due to NPO status and no esophagus. Dr Ley consulted and attempted to replace J tube but the stoma was stenosed and unable to place it. Patient appears to be very end stage and a hospice candidate. Patient will be moved to the 4th floor today. Enrike and Vanc maintained. Subjective/Events-last exam No major changes Receiving Dilaudid every 2 hours Very end of life stage Objective Exam Vital Signs Vital Signs Date Time Temp Pulse Resp B/P (MAP) Pulse Ox O2 Delivery O2 Flow Rate FiO2 03/02/22 08:00 Room Air 03/02/22 06:05 37.0 03/01/22 08:00 92 02/27/22 20:20 0.00 Capillary Refill : Less Than 3 Seconds General Appearance: Chronically ill, Other (sedated) Results/Procedures Lab Patient resulted labs reviewed. Assessment/Plan Assessment and Plan Assess & Plan/Chief Complaint Assessment: Yamini globrata fungemia placed on Diflucan 200mg IV but changed to Amphotericin B this evening when fever noted and tachycardia and moved to [facility] but now DNR and on comfort care Presumed sepsis UTI on Vanc and Enrike PNA likely aspiration type Chronic esophagus resection Diverting colostomy by Dr Bragg Cough due to aspiration? J-tube removal needs replaced? Can replace due to unstable and poor wound healing high risk for perforation TPN maintained Severe debility Hypokalemia Anemia of chronic disease Plan: IVF IV abx Dr Ley appreciated TPN 02/15/22: Amphotericin B Move to [facility] IVF bolus Check labs Prognosis is becoming more and more poor given the fact unable to even place J- tube due to debilitated state May need PICC replaced tomorrow 02/16/22: DC tomorrow on Hospice Move to [facility] DNR 02/17/2022: Supportive care 02/18/22: Increase Fentanyl patch to 100mcg 02/19/22: Comfort care 02/26/22: Monitor pain 02/27/22: End of life 02/27/22: End of life 03/01: End of life 03/02: Comfort care Critical Care Critically Ill Patient BISHOP VAN 15, 2022 05:57
[2022-03-02] MEDS: MICONAZOLE 2% POWDER (DESENEX AF) 90 GM TOP SCH ×2 (09:17→19:43)
[2022-03-02] MEDS: fentaNYL PATCH 100 MCG (DURAGESIC) TD SCH (10:09)
[2022-03-02] MEDS: LORazepam INJ 2 MG/ML (ATIVAN) VIAL IVP PRN ×4 (10:09→19:41)
[2022-03-03] MEDS: HYDROmorphone 2 MG/ML VIAL (DILAUDID) IV PRN ×3 (04:38→10:45)
--- NOTE | 2022-03-03 05:40 | Progress Note - Hospitalist ---
Subjective HPI/CC On Admission Date Seen by Provider: Mar 03, 2022 Time Seen by Provider: 10:30 CC: Weakness HPI: This is a 61yoWF clinic patient of [facility] who is known to me from prior hospital stays who has a h/o diverting colostomy and esophageal resection who just DC'ed from [place] 9 days ago after 1 month of hospital stay for respiratory failure and multi-system failure. She was found to have early UTI and early PNA requiring admit for IV abx since there is no access for PO due to removal of J tube. She remains on TPN. She coughs constantly but no cough suppressants can be given due to NPO status and no esophagus. Dr Ley consulted and attempted to replace J tube but the stoma was stenosed and unable to place it. Patient appears to be very end stage and a hospice candidate. Patient will be moved to the 4th floor today. Enrike and Vanc maintained. 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 J-tube removal needs replaced? Can replace due to unstable and poor wound healing high risk for perforation TPN maintained Severe debility Hypokalemia Anemia of chronic disease Plan: IVF IV abx Dr Ley appreciated TPN 02/15/22: Amphotericin B Move to [facility] IVF bolus Check labs Prognosis is becoming more and more poor given the fact unable to even place J- tube due to debilitated state May need PICC replaced tomorrow 02/16/22: DC tomorrow on Hospice Move to 4th DNR 02/17/2022: Supportive care 02/18/22: Increase Fentanyl patch to 100mcg 02/19/22: Comfort care 02/26/22: Monitor pain 02/27/22: End of life 02/27/22: End of life 03/01: End of life 03/02: Comfort care 03/03: CRYSTAL GROWING TECHNICIAN GIP Critical Care Critically Ill Patient BISHOP VAN 16, 2022 05:40
[2022-03-03] MEDS: MICONAZOLE 2% POWDER (DESENEX AF) 90 GM TOP SCH ×2 (09:00→21:50)
[2022-03-03] MEDS: LORazepam INJ 2 MG/ML (ATIVAN) VIAL IVP PRN (09:07)
[2022-03-03] MEDS ORDERED: NS IV 1000 ML 1,000 ML ONE (11:28)
--- NOTE | 2022-03-04 06:12 | Progress Note - Hospitalist ---
Subjective HPI/CC On Admission Date Seen by Provider: Mar 04, 2022 Time Seen by Provider: 11:00 CC: Weakness HPI: This is a 61yoWF clinic patient of [facility] who is known to me from prior hospital stays who has a h/o diverting colostomy and esophageal resection who just DC'ed from [place] 9 days ago after 1 month of hospital stay for respiratory failure and multi-system failure. She was found to have early UTI and early PNA requiring admit for IV abx since there is no access for PO due to removal of J tube. She remains on TPN. She coughs constantly but no cough suppressants can be given due to NPO status and no esophagus. Dr Ley consulted and attempted to replace J tube but the stoma was stenosed and unable to place it. Patient appears to be very end stage and a hospice candidate. Patient will be moved to the 4th floor today. Enrike and Vanc maintained. Objective Exam Vital Signs Vital Signs Date Time Temp Pulse Resp B/P (MAP) Pulse Ox O2 Delivery O2 Flow Rate FiO2 03/04/22 08:10 Room Air 03/02/22 06:05 37.0 03/01/22 08:00 92 02/27/22 20:20 0.00 Capillary Refill : Less Than 3 Seconds Results/Procedures Lab Patient resulted labs reviewed. Assessment/Plan Assessment and Plan Assess & Plan/Chief Complaint Assessment: Yamini globrata fungemia placed on Diflucan 200mg IV but changed to Amphotericin B this evening when fever noted and tachycardia and moved to [facility] but now DNR and on comfort care Presumed sepsis UTI on Vanc and Enrike PNA likely aspiration type Chronic esophagus resection Diverting colostomy by Dr Bragg Cough due to aspiration? J-tube removal needs replaced? Can replace due to unstable and poor wound healing high risk for perforation TPN maintained Severe debility Hypokalemia Anemia of chronic disease Plan: IVF IV abx Dr Ley appreciated TPN 02/15/22: Amphotericin B Move to [facility] IVF bolus Check labs Prognosis is becoming more and more poor given the fact unable to even place J- tube due to debilitated state May need PICC replaced tomorrow 02/16/22: DC tomorrow on Hospice Move to [facility] DNR 02/17/2022: Supportive care 02/18/22: Increase Fentanyl patch to 100mcg 02/19/22: Comfort care 02/26/22: Monitor pain 02/27/22: End of life 02/27/22: End of life 03/01: End of life 03/02: Comfort care 03/03: 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
[2022-03-04] MEDS: MICONAZOLE 2% POWDER (DESENEX AF) 90 GM TOP SCH (08:18)
--- NOTE | 2022-03-04 11:39 | Discharge Summary ---
Discharge Summary Hospital Course Was the Problem List Reviewed?: Yes Problems/Dx: (1) Esophageal rupture Status: Chronic (2) G-tube site cellulitis Status: Acute (3) Problem with gastrostomy tube Status: Acute (4) Tracheostomy complication Status: Acute (5) Chronic pain Status: Chronic (6) Small bowel obstruction Status: Acute (7) PEG tube malfunction Status: Acute (8) Irritation around percutaneous endoscopic gastrostomy (PEG) tube site Status: Acute Hospital Course Date of Admission: February 13, 2022 at 16:01 Admission Diagnosis : Family Physician/Provider: Jos Snow MD Date of Discharge: 03/04/22 Discharge Diagnosis: esophageal rupture, candidal infection Hospital Course: Pt had a length hospital course for 20 days after she was admitted for abdominal pain and respiratory insufficiency. 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 Pt was deemed Comfort Care/Hospice. She was discharged on inpatient TEST CONSULTANT Dilaudid pump, IV Ativan for end-of-life care. Labs and Pending Lab Test: Microbiology 02/13/22 Urine Culture - Final, Complete Growth Consistent 02/13/22 Blood Culture - Final, Complete Yamini glabrata Home Meds Active Fentanyl Patch 100 MCG (Fentanyl) 100 Mcg/Hour Patch.td72 100 Mcg TD Q72H Ondansetron Odt (Ondansetron) 4 Mg Tab.rapdis 4 Mg PO Q6H PRN Fentanyl Patch 50 MCG (Fentanyl) 50 Mcg/Hour Patch.td72 50 Mcg TD Q72H 7 Days Enoxaparin Sodium 40 Mg/0.4 Ml Syringe 40 Mg SC Q24H 7 Days Zosyn 4.5 gm/100 ml Galaxy Bag (Kcmodqcuxizz-Mymu-Mrlpmbqm,Iso) 4.5 Gram/100 Ml Froz.piggy 4.5 Gm IV Q8H 3 Days Reported Protonix (Pantoprazole Sodium) 40 Mg Granpkt.dr 40 Mg JT HS Benadryl Allergy (Diphenhydramine HCl) 25 Mg Tablet 25 Mg JT Q6H Ferrous Sulfate 220 Mg/5 Ml Elixir 5 Ml JT TID Morphine Conc. 20mg/ml (Morphine Sulfate) 100 Mg/5 Ml Solution 0.5-1 Ml JT Q4H PRN Ventolin Hfa (Albuterol Sulfate) 18 Gm Hfa.aer.ad 2 Puff INH Q4H PRN Albuterol Sulfate 2.5 Mg/3 Ml Vial.neb 3 Ml INH Q4H PRN Oxycodone HCl 10 Mg Tablet 10 Mg JT Q4H PRN Promethazine HCl 12.5 Mg Tablet 12.5 Mg JT Q6H Ativan (Lorazepam) 1 Mg Tablet 1 Mg JT Q6H PRN Ropinirole HCl 0.25 Mg Tablet 0.25 Mg JT HS Sertraline HCl 50 Mg Tablet 50 Mg JT DAILY Reglan (Metoclopramide HCl) 10 Mg Tablet 10 Mg JT Q6H Assessment/Pt Instructions Hospice Discharge Planning: <30 minutes discharge planning Discharge Physical Examination Vital Signs Vital Signs Date Time Temp Pulse Resp B/P (MAP) Pulse Ox O2 Delivery O2 Flow Rate FiO2 03/04/22 08:10 Room Air 03/02/22 06:05 37.0 03/01/22 08:00 92 02/27/22 20:20 0.00 Allergies: Coded Allergies: codeine (Unverified Adverse Reaction, Unknown, 09/03/18) severe stomach pain Discharge Summary Date of Admission February 13, 2022 at 16:01 Date of Discharge Discharge Date: Mar 04, 2022 Admission Diagnosis Assessment: UTI PNA Chronic esophagus resection Diverting colostomy by Dr Bragg Cough due to aspiration? J-tube removal needs replaced TPN maintained Severe debility Plan: IVF IV abx Dr Ley appreciated TPN Comfort Measures/ End of Life Care: Comfort Measures Discharge Diagnosis Assessment: Yamini globrata fungemia placed on Diflucan 200mg IV but changed to Amphotericin B this evening when fever noted and tachycardia and moved to 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 J-tube removal needs replaced? Can replace due to unstable and poor wound healing high risk for perforation TPN maintained Severe debility Hypokalemia Anemia of chronic disease Plan: IVF IV abx Dr Ley appreciated TPN 02/15/22: Amphotericin B Move to [facility] IVF bolus Check labs Prognosis is becoming more and more poor given the fact unable to even place J- tube due to debilitated state May need PICC replaced tomorrow 02/16/22: DC tomorrow on Hospice Move to 4th DNR 02/17/2022: Supportive care 02/18/22: Increase Fentanyl patch to 100mcg 02/19/22: Comfort care 02/26/22: Monitor pain 02/27/22: End of life 02/27/22: End of life 03/01: End of life 03/02: Comfort care 03/03: TEST CONSULTANT GIP BISHOP VAN DO Mar 04, 2022 11:39
== END 2022-03-04 12:50 | disposition hospice, inpatient (51) | DRG 871 ==
LOC: EDUNIT# 11:11 → ER 11:12 → CSD 16:01 → 4TH 02-14 15:48 → CSD 02-15 21:29 → 4TH 02-16 15:52
PROVIDERS: ADMIT Internal Medicine; ATTEND Internal Medicine
DX: B37.7 Candidal sepsis (principal); J69.0 Pneumonitis due to inhalation of food and vomit; E43 Unspecified severe protein-calorie malnutrition; N39.0 Urinary tract infection, site not specified; K94.33 Esophagostomy malfunction; Z51.5 Encounter for palliative care; Z68.20 Body mass index [BMI] 20.0-20.9, adult; Z66 Do not resuscitate; Z20.822 Contact with and (suspected) exposure to COVID-19; D69.6 Thrombocytopenia, unspecified; D63.8 Anemia in other chronic diseases classified elsewhere; E87.6 Hypokalemia; E86.0 Dehydration; J45.909 Unspecified asthma, uncomplicated; I10 Essential (primary) hypertension; M19.91 Primary osteoarthritis, unspecified site; F32.A Depression, unspecified; Z93.3 Colostomy status; Z88.5 Allergy status to narcotic agent
CPT/HCPCS: 36415; 71045; 80053; 80202; 81000; 83605; 83735; 84145; 85025; 85610; 85730; 87040; 87088; 87106; 87636; 93005; 94640; 94760; 96361; 96374; 96375; 96376